=== PATIENT | female | born 1940 | race Caucasian/White ===

== ENCOUNTER 2023-03-02 10:44 | Outpatient (RCR) | payer MEDICARE, SELFPAY | END 2023-04-01 13:42 | disposition home or self-care (01) | LOC: PT 10:44 | PROVIDERS: PCP Family Medicine; Visit Provider Family Medicine | DX: M25.511 Pain in right shoulder (principal) | CPT/HCPCS: 97110; 97161 ==

== ENCOUNTER 2023-04-01 19:53 | Emergency (ER) | payer MEDICARE, SELFPAY ==
[2023-04-01 20:03] VITALS: BP 168/83; PULSE 68; RESP 16; TEMP 36.7; O2SAT 95; BMI 26.3
--- NOTE | 2023-04-01 20:53 | ED.UPPEXIN1 ---
HPI - Extremity Injury (Upper) General Chief Complaint: Wound/Laceration Stated Complaint: FALL Upper Extermity Injury Time Seen by Provider: 04/01/23 20:16 Source: patient Mode of arrival: walk-in History of Present Illness HPI narrative: This 82-year-old female who is on a daily baby aspirin presents for evaluation of 2 skin tears to the right forearm and one laceration to the medial aspect of the distal forearm. The patient states that she was walking down the bleachers at the volleyball game in her shoe got stuck and she fell forward striking her arm on one of the bleachers. She denies any bony tenderness. She denies any dizziness prior to her fall. She does not know the date of her last tetanus shot. She has an approximately 2 cm laceration to the distal anterior forearm and an approximately 2 cm skin tear to the upper forearm and approximately 1 cm skin tear to the elbow area. Related Data Allergies Allergy/AdvReac Type Severity Reaction Status Date / Time No Known Drug Allergies Allergy Verified 04/01/23 20:03 Review of Systems ROS Status of ROS 10 or more systems reviewed and unremarkable except as noted in history and below Exam Narrative Exam Narrative: Nurses note and vital signs reviewed and patient is not hypoxic. General: The patient appears well and in no apparent distress. Patient is resting comfortably on cart.GCS 15 Skin: Warm, dry, no pallor noted. There is no rash noted. Head: Normocephalic, atraumatic Eye: Normal conjunctiva, no drainage, EOMI. PERRL Ears, Nose, Mouth, and Throat: oral mucosa is moist Neck: No midline bony vertebral tenderness or step-off Cardiovascular: Regular Rate and Rhythm S1 and S2, pulses are brisk and equal bilaterally Respiratory: Patient is in no distress, no accessory muscle use, lungs are clear to auscultation, no wheezing, rales or rhonchi Back: non-tender, no CVA tenderness bilaterally to percussion. GI: Normal bowel sounds, no tenderness to palpation, no masses appreciated. No rebound, guarding, or rigidity noted. Musculoskeletal: There is a 2 cm laceration to the distal forearm tearily. There is a 2 cm skin tear to the right mid forearm and once a meter skin tear to the right elbow area. President And Chief Executive Officer strength is intact, patient is able to approximate thumb and all fingers. Neurological: A&O x4, normal speech, No focal weakness Psychiatric: Cooperative Constitutional Vital Signs, click to edit/add: Last Vital Signs Temp 98.0 F 04/01/23 20:03 Pulse 68 04/01/23 20:03 Resp 16 04/01/23 20:03 BP 168/83 H 04/01/23 20:03 Pulse Ox 95 04/01/23 20:03 O2 Del Method Room Air 04/01/23 20:03 Course Vital Signs Vital signs: Vital Signs Temperature 98.0 F 04/01/23 20:03 Pulse Rate 68 04/01/23 20:03 Respiratory Rate 16 04/01/23 20:03 Blood Pressure 168/83 H 04/01/23 20:03 Pulse Oximetry 95 04/01/23 20:03 Oxygen Delivery Method Room Air 04/01/23 20:03 Temperature 98.0 F 04/01/23 20:03 Pulse Rate 68 04/01/23 20:03 Respiratory Rate 16 04/01/23 20:03 Blood Pressure 168/83 H 04/01/23 20:03 Pulse Oximetry 95 04/01/23 20:03 Oxygen Delivery Method Room Air 04/01/23 20:03 MDM - Extremity Injury (Upper) MDM Narrative Medical decision making narrative: Procedure note: Laceration repair right forearm. The forearm was infiltrated with 1 percent lidocaine and explored to the base. There was no foreign body or visible tendon. It was irrigated copiously with normal saline and Betadine. 8, 3-0 Ethilon sutures are placed into the laceration with good wound edge approximation and control of bleeding. The skin tear on the right mid forearm was cleaned with normal saline and Betadine and irrigated with normal saline and Dermabond was placed over the skin tear. There was initial current bleeding which then resolved and additional Dermabond was applied.Bleeding was subsequently controlled. Skin tear at the right elbow area was cleaned with normal saline and Betadine and irrigated with normal saline. Dermabond was placed over the skin tear with good wound edge approximation. Tolerated all procedures well. Discharge Plan Discharge Chief Complaint: Wound/Laceration Clinical Impression: Skin tear of forearm without complication, Forearm laceration Patient Disposition: Home, Self-Care Time of Disposition Decision: 21:28 Condition: Good Instructions: Care For Your Stitches (ED), Laceration (ED), Skin Adhesive Care (ED), Laceration Without Closure (ED) Additional Instructions: Sutures can be removed in 10-12 days. Apply bacitracin topically to the sutured area. The area with the skin adhesive can be left open are covered with a loose bandage. Stand Alone Forms: Portal Instructions Referrals: Halina Lowe MD [Primary Care Provider] - 1 week
--- NOTE | 2023-04-01 21:09 | PC.NURSE ---
patient was at [employer] game when she tripped over the last step and fell into the bleachers. patient landed on right arm. takes 81mg aspirin daily. patient arrived by private car with affected arm wrapped in coband with gauze. patient suffers from laceration to posterior side of wrist with clotted with dark red blood. approx 2in long. skin tear well approx to anterior right forearm. skin tear noted to posterior forearm approx .5 in in length and width. patient denies any dizziness, no head injury, ambulated unassisted with steady gait
[2023-04-01] MEDS: ADACEL DIPH,PERTUSS(ACELL),TET VAC/PF 0.5 ML ADULT SYRINGE IM (22:13)
[2023-04-01] MEDS: LIDOCAINE HCL 1% 100 MG/10 ML MDV INJ (22:14)
== END 2023-04-01 22:33 | disposition home or self-care (01) ==
PROVIDERS: Emergency Provider Emergency Medicine; PCP Family Medicine
DX: S51.811A Laceration without foreign body of right forearm, initial encounter (principal); S51.011A Laceration without foreign body of right elbow, initial encounter; W10.8XXA Fall (on) (from) other stairs and steps, initial encounter; Z79.82 Long term (current) use of aspirin
CPT/HCPCS: 12002; 90471; 90715; 99283

== ENCOUNTER 2024-08-27 10:35 | Emergency (ER) | payer MEDICARE, SELFPAY ==
[2024-08-27 10:40] VITALS: BP 135/86; PULSE 68; TEMP 36.6; O2SAT 100; BMI 27.3
--- NOTE | 2024-08-27 10:46 | XR_ITS ---
The [address] [address] Patient Name: LACEY FRANK MRN: [id number] date: 1940 Sex: F Assigned Patient Location: ER Current Patient Location: ER Accession/Order Number: [id number] Exam Date: 08/27/2024 10:55 Report Date: 08/27/2024 11:27 At the request of: CATIE AGUILERA Procedure: XR shoulder RT min 2V EXAM: XR shoulder RT min 2V HISTORY: fall COMPARISON: None. TECHNIQUE: 3 views of the right shoulder performed. FINDINGS: There is an acute comminuted displaced fracture of the proximal right humerus with a displaced fracture of the greater tuberosity and a comminuted displaced fracture of the surgical neck. The humeral head maintains a normal relationship with the glenoid. The clavicle and scapula are unremarkable. The acromioclavicular articulation is unremarkable. Imaged portions of the ribs are unremarkable. XR/XR shoulder RT min 2V IMPRESSION: There is an acute comminuted displaced fracture of the proximal right humerus with a displaced fracture of the radial tuberosity and a comminuted displaced fracture of the surgical neck. Electronically authenticated by: RAD PELAYO Date: 08/27/2024 11:27
--- NOTE | 2024-08-27 10:50 | ED.UPPEXIN1 ---
HPI HPI - Extremity Injury (Upper) General Chief Complaint: Extremity Injury, Upper Stated Complaint: FALL, UPPER EXTREMITY PAIN Time Seen by Provider: 08/27/24 10:38 Source: patient Mode of arrival: walk-in Limitations: no limitations History of Present Illness HPI narrative: 84-year-old female presents for pain in the right shoulder from a fall on ice this morning. No other injury was sustained, she did not hit her head. No weakness or numbness in her hand. Related Data Home Medications ?Medication ?Instructions ?Recorded ?Confirmed amitriptyline 10 mg tablet 10 mg PO .QHS 08/27/24 08/27/24 amlodipine 5 mg tablet 7.5 mg PO .QD 08/27/24 08/27/24 aspirin 81 mg tablet,delayed 81 mg PO DAILY 08/27/24 08/27/24 release (Adult Aspirin Regimen) estradiol 0.01% (0.1 mg/gram) 1 g vaginal .TWICE PER WEEK 08/27/24 08/27/24 vaginal cream levothyroxine 88 mcg tablet 88 mcg PO QAM 08/27/24 08/27/24 lisinopril 20 mg tablet 20 mg PO .QD 08/27/24 08/27/24 methenamine hippurate 1 gram tablet 1 g PO .QD 08/27/24 08/27/24 ropinirole 1 mg tablet 1 mg PO .QHS 08/27/24 08/27/24 Allergies Allergy/AdvReac Type Severity Reaction Status Date / Time No Known Drug Allergies Allergy Verified 08/27/24 10:40 Opioid HPI Opioid Management Most Recent Pain and Opioid Data: No Data to Display Review of Systems ROS Narrative A ten point review of systems is negative except as noted above. PFSH PFSH Social History Little interest or pleasure in doing things: not at all Feeling down, depressed, or hopeless: several days Exam Narrative Exam Narrative: Nurses note and vital signs reviewed and patient is not hypoxic. General: The patient appears well and in no apparent distress. Patient is resting comfortably on cart. Skin: Warm, dry, no pallor noted. There is no rash noted. Head: Normocephalic, atraumatic Eye: Normal conjunctiva, no drainage Ears, Nose, Mouth, and Throat: oral mucosa is moist. Nares patent. Cardiovascular: Regular Rate and Rhythm Respiratory: Patient is in no distress, no accessory muscle use Back: non-tender GI: Soft and nontender Musculoskeletal: She is reluctant to move her right shoulder. Radial pulse 2+. Wrist and elbow nontender. Fingers have good range of motion. Neurological: A&O, normal speech Psychiatric: Cooperative Constitutional Vital Signs, click to edit/add: Last Vital Signs Temp 97.9 F 08/27/24 10:40 Pulse 68 08/27/24 10:40 Resp 16 08/27/24 10:40 BP 135/86 08/27/24 10:40 Pulse Ox 100 08/27/24 10:40 O2 Del Method Room Air 08/27/24 10:40 Course Vital Signs Vital signs: Vital Signs Temperature 97.9 F 08/27/24 10:40 Pulse Rate 68 08/27/24 10:40 Respiratory Rate 16 08/27/24 10:40 Blood Pressure 135/86 08/27/24 10:40 Pulse Oximetry 100 08/27/24 10:40 Oxygen Delivery Method Room Air 08/27/24 10:40 Temperature 97.9 F 08/27/24 10:40 Pulse Rate 68 08/27/24 10:40 Respiratory Rate 16 08/27/24 10:40 Blood Pressure 135/86 08/27/24 10:40 Pulse Oximetry 100 08/27/24 10:40 Oxygen Delivery Method Room Air 08/27/24 10:40 MDM - Extremity Injury (Upper) MDM Narrative Medical decision making narrative: X-ray on my interpretation shows a proximal humerus fracture, mildly displaced. Sling applied, application checked by me and found to be appropriate, she is neurovascularly intact. Appointment made to see Dr. Puga on August 29 at 10:15 AM. Treatment diagnosis and follow-up were discussed with the patient. Differential Diagnosis Differential diagnosis: Likely other (Contusion, fracture, dislocation) Imaging Data Right shoulder: Radiologist's impression: ITS Impressions Shoulder X-Ray 08/27/24 10:46 IMPRESSION: There is an acute comminuted displaced fracture of the proximal right humerus with a displaced fracture of the radial tuberosity and a comminuted displaced fracture of the surgical neck. Electronically authenticated by: RAD PELAYO Date: 08/27/2024 11:27 Discharge Plan Discharge Chief Complaint: Extremity Injury, Upper Clinical Impression: Fracture of right shoulder Patient Disposition: Home, Self-Care Time of Disposition Decision: 11:30 Condition: Good Mode of Transportation: Private Vehicle Prescriptions / Home Meds: No Action estradiol 0.01 % (0.1 mg/gram) cream 1 g VAGINAL .TWICE PER WEEK levothyroxine 88 mcg tablet 88 mcg PO QAM lisinopril 20 mg tablet 20 mg PO .QD methenamine hippurate 1 gram tablet 1 g PO .QD ropinirole 1 mg tablet 1 mg PO .QHS amlodipine 5 mg tablet 7.5 mg PO .QD amitriptyline 10 mg tablet 10 mg PO .QHS aspirin [Adult Aspirin Regimen] 81 mg tablet,delayed release (DR/EC) 81 mg PO DAILY Print Language: Slovenian Instructions: Arm Fracture in Adults (ED) Additional Instructions: Tylenol and Motrin for pain Referrals: Halina Lowe MD [Primary Care Provider] - 1 week Edgar Puga MD [Physician] - 08/29/24 10:15 am
== END 2024-08-27 11:43 | disposition home or self-care (01) ==
PROVIDERS: Emergency Provider Emergency Medicine; PCP Family Medicine
DX: S42.211A Unspecified displaced fracture of surgical neck of right humerus, initial encounter for closed fracture (principal); W00.0XXA Fall on same level due to ice and snow, initial encounter
CPT/HCPCS: 73030; 99283

== ENCOUNTER 2024-09-12 12:22 | Outpatient (OUT) | payer MEDICARE, SELFPAY ==
--- NOTE | 2024-09-12 | XR_ITS ---
The [address] [address] Patient Name: THANIA FRANK MRN: [id number] date: 1940 Sex: F Assigned Patient Location: Current Patient Location: Accession/Order Number: [id number] Exam Date: 09/12/2024 17:05 Report Date: 09/12/2024 17:06 At the request of: JONATAN ECHEVARRIA MD Procedure: XR shoulder RT min 2V RIGHT SHOULDER - - 3 views CLINICAL HISTORY: Follow-up proximal right humerus fracture COMPARISON: Right shoulder 08/27/2024 FINDINGS: Right humeral head/neck fracture grossly unchanged alignment and healing compared to the prior study. XR/XR shoulder RT min 2V IMPRESSION: NO SIGNIFICANT CHANGE IN FRACTURE FINDINGS. Impression dictated by: Holland Lopez Jr., D.ONicole09/12/2024 5:06 PM Dictation Location: [place] [address] Electronically authenticated by: [id number] Y Date: 09/12/2024 17:06
--- OUTSIDE RECORDS SUMMARY | 2024-09-12 12:28 | XMS_ITS | CCD ---
Author Organization [facility] [place] [facility] Care Team Providers Care Grinder Set Up Operator Jig Name Role Phone DAVID PIKE Primary Care Unavailable PEREZ JAMES Admitting Unavailable PEREZ JAMES Attending Unavailable PHYSICIAN, DEFAULT Admitting Unavailable PHYSICIAN, DEFAULT Attending Unavailable PHYSICIAN, DEFAULT Admitting Unavailable PHYSICIAN, DEFAULT Attending Unavailable Deepa Hendrickson Unavailable MD David Pike Primary Care Provider MD Deepa Hendrickson Attending Provider [phone] DAVID PIKE Admitting Unavailable MISC, DR JACOBSON Primary Care Unavailable PIKE, DR DAVID Quarles Attending Unavailable PIKE, DR DAVID Quarles Consulting Unavailable PIKE, DR DAVID Quarles Admitting Unavailable MISC, DR JACOBSON Primary Care Unavailable PIKE, DR DAVID Quarles Attending Unavailable PIKE, DR DAVID Quarles Consulting Unavailable PIKE, DR DAVID Quarles Admitting Unavailable PIKE, DR DAVID Quarles Attending Unavailable PIKE, DR DAVID Quarles Consulting Unavailable PIKE, DR DAVID Quarles Primary Care Unavailable PIKE, DR DAVID Quarles Admitting Unavailable PIKE, DR DAVID Quarles Attending Unavailable PIKE, DR DAVID Quarles Consulting Unavailable PIKE, DR DAVID Quarles Primary Care Unavailable PIKE, DR DAVID Quarles Primary Care Unavailable PIKE, DR DAVID Quarles Consulting Unavailable PIKE, DR DAVID Quarles Admitting Unavailable PIKE, DR DAVID Quarles Attending Unavailable PIKE, DR DAVID Quarles Admitting Unavailable MISC, DR JACOBSON Primary Care Unavailable GLENDY, DR DAVID Quarles Attending Unavailable GLENDY, DR DAVID Quarles Consulting Unavailable KAMALA HEBERT Admitting Unavailable MISC, DR JACOBSON Primary Care Unavailable KAMALA HEBERT Attending Unavailable KAMALA HEBERT Consulting Unavailable MD David Pike Primary Care Provider [phone] MD David Pike Other Provider MD Deepa Hendrickson Attending Provider [phone] DAVID PIKE Primary Care Physician David Pike Unavailable MD David Pike Attending Provider [phone] SHONNA MO Attending Unavailable SHONNA MO Attending Unavailable SHONNA MO Admitting Unavailable MD David Pike Primary Care Provider MD Deepa Hendrickson Attending Provider MD David Pike Primary Care Provider MD Deepa Hendrickson Attending Provider [phone] MD David Pike Attending Provider [phone] MD David Pike Primary Care Provider MD David Pike Attending Provider MD Deepa Hendrickson Attending Provider David Pike MD Primary Care Provider David Pike MD Primary Care Provider Rosie Jones DO Attending Provider ROSIE JONES Attending Unavailable GERARDO PIKEIA Referring Unavailable SCOTT CASTELLANO Attending Unavailable Glendy, David E Primary Care Unavailable David Pike E Attending Unavailable Glendy, David E Admitting Unavailable Pike, David E Primary Care Unavailable David Pike E Attending Unavailable Glendy, David E Admitting Unavailable Pike, David E Primary Care Unavailable Emeka, Deepa Admitting Unavailable Emeka, Deepa Attending Unavailable David Pike E Primary Care Unavailable Emeka, Deepa Admitting Unavailable Emeka, Deepa Attending Unavailable Rosie Jones Attending Unavailab le Rosie Jones Admitting Unavailab le Glendy David Willam Primary Care Unavailable Shonna Villeda Admitting Unavailable Shonna Villeda Attending Unavailable Allergies Allergy Classification Reported Allergen(s) Allergy Type Date of Onset Reaction(s) Facility (11 sources) Antihistamines Propensity to adverse reactions Unknown [facility] Other (17 sources) fesoterodine Drug Allergy Unknown [facility] Other (17 sources) FLUoxetine Drug Allergy Unknown [facility] Other (20 sources) Hmg-Coa Reductase Inhibitors (Statins); Translations: [HMG-CoA reductase inhibitor (substance)] Propensity to adverse reactions 10-04-19 24 Unknown (qualifier value), Unknown [facility] (20 sources) Nitrofurantoin Drug Allergy 09-04-19 24 Unknown [facility] (17 sources) Penicillins (Antibiotic) Propensity to adverse reactions Unknown [facility] Other (20 sources) DECONGESTANTS Propensity to adverse reactions 09-04-19 Unknown, [facility] (1 source) black walnut pollen extract Drug Allergy 07-23-19 [facility] (14 sources) Penicillins; Translations: [penicillins] Drug allergy (disorder) 01-06-20 13 itching/rash, Hives [facility] (1 source) Antihistamines - Alkylamine Drug allergy (disorder) 07-13-19 03 [facility] (1 source) Decongest Multi-Action Drug allergy (disorder) 07-13-19 13 [facility] (3 sources) NITROFURANTOIN, MACROCRYSTALS / Nitrofurantoin, Monohydrate; Translations: [nitrofurantoin] Drug Allergy Diarrhea (finding) [facility] (6 sources) Pseudoephedrine; Translations: [pseudoephedrine] Drug Allergy Eruption of skin (disorder) [facility] (3 sources) antihistamine/deco ngestants; Translations: [antihistamine/dec ongestants] Drug allergy itching/hives [facility] (9 sources) fexofenadine / Pseudoephedrine Drug Allergy Unknown [facility] Other (9 sources) Penicillin G Benzathine & Proc Drug allergy Unknown [facility] Other (10 sources) fesoterodine Drug Allergy 09-04-19 [facility] (10 sources) FLUoxetine Drug Allergy 09-04-19 [facility] (10 sources) Penicillin G Benzathine Allergy to substance 09-04-19 [facility] (10 sources) Itkilfu-HKZ-CaC Reductase Inhibitor Allergy to substance 09-04-19 [facility] (10 sources) Antihistamine & Nasal Deconges Allergy to substance 09-04-19 [facility] (3 sources) diphenhydrAMINE Drug Allergy 10-04-19 [facility] (3 sources) Penicillins Drug Intolerance 10-05-[address] [facility] (3 sources) Pseudoephedrine Drug Allergy 10-04-[address] [facility] Medications Current Medications Medication Drug Class(es) Dates Sig (Normalized) Sig (Original) amitriptyline hydrochloride 10 mg oral tablet (20 sources) Tricyclic Antidepressant Start: 03-29-2024 take 1 tablet by mouth once daily Amitriptyline 10 mg tablet Active 10 MG PO Daily March 29, 2024 8:14am Start: 03-11-2024 End: 03-29-2024 take 1 tablet by mouth once daily at bedtime Amitriptyline 10 mg tablet Discontinued 0 .ROUTE .COMPLEX 90 March 11, 2024 9:09pm March 29, 2024 8:16am TAKE 1 TABLET BY MOUTH EVERYDAY AT BEDTIME Start: 09-04-2023 End: 03-11-2024 take 1 tablet by mouth once daily at bedtime Amitriptyline 10 mg tablet Discontinued 10 MG PO Daily at bedtime September 17, 2023 10:12am March 11, 2024 9:09pm Start: 06-22-2019 take 1 tablet by lily th once daily at bedtime Elavil 25 mg Tab 25 mg = 1 tab(s), Oral, Once a day (at bedtime), Refills(s) 0, Anxiety Start Date: 06/22/19 Status: Ordered ascorbic acid 113 mg / copper gluconate 0.4 mg / docosahexaenoic acid 87.5 mg / eicosapentaenoic acid 163 mg / lutein 2.5 mg / tocopherol acetate 100 unt / zeaxanthin 0.5 mg / zinc oxide 17.4 mg oral capsule (17 sources) Vitamin C take 1 capsule by mouth twice daily PreserVision AREDS 2 - 1 capsule Orally twice a day Active aspirin 81 mg delayed release oral tablet (20 sources) Platelet Aggregation Inhibitor, Nonsteroidal Anti-inflammatory Drug Start: 09-04-19 End: 09-17-19 24 take 1 tablet by mouth once daily Aspirin 81 mg tablet,delayed release (DR/EC) Active 81 MG PO Daily September 17, 2023 10:12am Start: 06-11-2015 take 1 tablet by lily th once daily aspirin 81 mg oral tablet 81 mg = 1 tab(s), Oral, Daily, Refills(s) 0, Blood Thinner Start Date: 06/11/15 Status: Ordered take 1 tablet by lily th once daily aspirin 81 MG chewable tablet Chew 1 tablet every day by oral route. Active take 1 tablet by lily th every twenty-four hours Aspirin 81 81 MG 1 tablet Orally Once a day Active take 1 tablet by lily th once daily Aspirin 81 81 MG 1 tablet Orally Once a day Active Calcium (2 sources) Phosphate Binder, Calcium Start: 06-11-2015 take 1 tablet by mouth at bedtime Calcium 600+D 1 tablet, Oral, Bedtime, Refill(s) 0, Prophylaxis Start Date: 06/11/15 Status: Ordered Calcium 500+D3 500-400 MG-UNIT (1 source) take 1 tablet by mouth once daily Calcium 500+D3 500-400 MG-UNIT 1 tablet with a meal Orally Once a day Active calcium carbonate 1500 mg oral tablet (2 sources) Start: 08-14-2015 calcium (as carbonate) 600 mg oral tablet 1,200 mg = 2 tab(s), Oral, Daily, Refills(s) 0, Prophylaxis Start Date: 08/14/15 Status: Ordered cholecalciferol 0.125 mg oral capsule (12 sources) Vitamin D Start: 09-04-2023 take 1 capsule by mouth once daily Cholecalciferol (Vitamin D3) 125 mcg (5,000 unit) capsule Active 125 MCG PO Daily September 04, 2023 12:00am take 1 tablet by mouth once teri y cholecalciferol (Vitamin D-3) 25 MCG (1000 UT) tablet Take 1,000 Units by mouth Daily Active chondroitin sulfates 40 mg/ml / glucosamine hydrochloride 50 mg/ml oral solution (3 sources) Glucosamine-Isaac droitin 2236-7013 MG/30ML liquid 1 (one) time each day at the same time Active clonazePAM 0.5 mg oral tablet (15 sources) Benzodiazepine Start: 023 take 1 tablet by mouth once daily clonazePAM 0.5 MG TAKE 1 TABLET BY MOUTH EVERY DAY for 30 Feb, Active Start: 11-11-2022 take 1 tablet by lily th once daily clonazePAM 0.5 MG TAKE 1 TABLET BY MOUTH EVERY DAY for 30 November, Active Start: 06-11-2015 take 1 tablet by lily th once daily clonazePAM 0.5 MG TAKE 1 TABLET BY MOUTH EVERY DAY for 30 Jul, Active Cranberry (20 sources) Non-Standardized Food Allergenic Extract, Non-Standardized Plant Allergenic Extract Start: 03-29-2024 take 1 capsule by mouth once Cranberry 500 mg capsule Active 500 MG PO Once March 29, 2024 8:10am Start: 03-29-2024 take 500 mg by mouth once Cran herrera Active 500 MG PO Once March 29, 2024 9:10am Start: 09-17-2023 End: 03-29-2024 take 1 capsule by mouth twice daily Cranberry 500 mg capsule Discontinued 500 MG PO Twice daily September 17, 2023 10:13am March 29, 2024 8:14am Start: 09-17-2023 End: 03-29-2024 take 500 mg by mouth twice daily Cranberry Discontinue d 500 MG PO Twice daily September 17, 2023 11:13am March 29, 2024 9:14am Start: 09-17-2023 take 500 mg by mouth twice cyrus ly Cranberry Active 500 MG PO Twice daily September 17, 2023 11:13am Start: 09-04-2023 End: 09-17-2023 take 1 capsule by mouth twice daily at mealtime Cranberry 500 mg capsule Discontinued 500 MG PO Twice daily September 04, 2023 12:00am September 17, 2023 10:17am administer with meals Start: 09-04-2023 End: 09-17-2023 take 500 mg by mouth twice daily at mealtime Cranberry Discontinued 500 MG PO Twice daily September 04, 2023 1:00am September 17, 2023 11:17am administer with meals Cranberry 300 MG as directed Orally Active estradiol 0.1 mg/ml vaginal cream (20 sources) Estrogen Start: 09-04-2023 End: 09-17-2023 Estradiol 0.01 % (0.1 mg/gram) cream Active VAGINAL As Directed September 17, 2023 10:13am estradiol (Estra ce) 0.1 MG/GM vaginal cream 1 gram Vaginal Once per week for 30 days Active Estradiol 0.1 MG /GM as directed Vaginal Active Estradiol 0.1 MG /GM as directed Vaginal Active Estradiol 0.1 MG/GM (2 sources) Estradiol 0.1 MG /GM as directed Vaginal Active Fish Oils (19 sources) Start: 06-11-2015 take 1 tablet by mouth at bedtime Fish Oil 1 tablet, Oral, Bedtime, Refill(s) 0, Prophylaxis Start Date: 06/11/15 Status: Ordered take 1 capsule by mouth once cyrus ly Fish Oil 1000 MG 1 capsule Orally Once a day Active FLUoxetine 10 mg oral capsule (2 sources) Serotonin Reuptake Inhibitor Start: 02-04-2023 take 1 capsule by mouth every twenty-four hours FLUoxetine HCl 10 MG 1 capsule Orally Once a day for 30 days Jan, Active gemfibrozil 600 mg oral tablet (20 sources) Peroxisome Proliferator Receptor alpha Agonist Start: 11-25-2023 take 1 tablet by mouth once daily Gemfibrozil 600 mg tablet Active 600 MG PO Daily November 24, 2023 11:00pm Start: 09-17-2023 End: 11-25-2023 take 1 tablet by mouth twice daily Gemfibrozil 600 mg tablet Discontinued 600 MG PO Twice daily September 17, 2023 10:13am November 25, 2023 7:56am Start: 09-04-2023 End: 09-17-2023 Gemfibrozil 600 mg tablet Discontinued MG PO September 04, 2023 12:00am September 17, 2023 10:17am FreeTextSi tablet 30 minutes before morning and evening meals Orally ONCE A DAY; Note: Source Status: Taking; Provider: Glendy Meade ( ) Start: 06-11-2015 take 1 tablet by lily twice daily gemfibrozil 600 mg Tab 600 mg = 1 tab(s), Oral, BID, Refills(s) 0, High blood sugar Start Date: 06/11/15 Status: Ordered Gemfibrozil 600 MG 1 tablet 30 minutes before morning and evening meals Orally ONCE A DAY Active glucosamine sulfate 500 mg oral tablet (18 sources) Start: 09-04-2023 End: 09-17-2023 take 1 tablet by mouth once daily Glucosamine Sulfate (Glucosamine) 500 mg tablet Active 500 MG PO Daily September 17, 2023 10:14am Glucosamine Chond Complex/MSM - (17 sources) Glucosamine Isaac d Complex/MSM - as directed Orally Active hydroCHLOROthiazide 12.5 mg oral tablet (7 sources) Thiazide Diuretic Start: 02-06-2020 hydrochlorothiazide 12.5 mg Tab Refills(s) 0 Start Date: 02/06/20 Status: Ordered hydroCHLOROthiazide 25 mg / lisinopril 20 mg oral tablet (3 sources) Thiazide Diuretic, Angiotensin Converting Enzyme Inhibitor take 2 tablets by mouth once daily lisinopril-hydroCHLORO thiazide 20-25 MG tablet Take 2 tablets by mouth Daily Active ketoconazole 20 mg/ml topical cream (20 sources) Azole Antifungal Start: 09-04-2023 End: 09-17-2023 Ketoconazole 2 % cream Active 1 APPLIC TOPICAL Daily September 17, 2023 10:14am Start: 09-04-2023 End: 09-17-2023 Ketoconazole 2 % cream Disco ntinued 1 APPLIC TOPICAL Daily September 04, 2023 12:00am September 17, 2023 10:17am FreeTextSi application Externally Once a day; Note: Source Status: Taking; Provider: Glendy Meade ( ) Ketoconazole 2 % 1 application Externally Once a day Active Ketoconazole 2 % 1 application Externally Once a day Active levothyroxine sodium 0.088 mg oral tablet (20 sources) l-Thyroxine Start: 06-13-2024 take 1 tablet by mouth once daily in the morning Levothyroxine 88 mcg tablet Active 0 .ROUTE .COMPLEX June 13, 2024 12:39pm TAKE 1 TABLET BY MOUTH EVERY DAY IN THE MORNING ON AN EMPTY STOMACH Start: 03-29-2024 End: 06-13-2024 take 1 tablet by mouth once daily Levothyroxine 88 mcg tablet Discontinued 88 MCG PO Daily March 29, 2024 8:15am June 13, 2024 12:39pm Start: 03-18-2024 End: 03-29-2024 take 1 tablet by mouth once daily in the morning Levothyroxine 88 mcg tablet Discontinued 0 .ROUTE .COMPLEX March 18, 2024 10:20pm March 29, 2024 8:16am TAKE 1 TABLET BY MOUTH EVERY MORNING ON AN EMPTY STOMACH Start: 12-01-2023 End: 03-18-2024 take 1 tablet by mouth once daily in the morning Levothyroxine 75 mcg tablet Discontinued 0 .ROUTE .COMPLEX January 11, 2024 7:33am March 18, 2024 10:20pm TAKE 1 TABLET BY MOUTH EVERY MORNING ON AN EMPTY STOMACH Start: 09-04-2023 End: 12-01-2023 take 1 tablet by mouth once daily Levothyroxine 75 mcg tablet Discontinued 75 MCG PO Daily September 17, 2023 10:14am December 01, 2023 9:00am Start: 06-22-2019 levothyroxine 50 microgram, Oral, Daily, Refills(s) 0, Thyroid Start Date: 06/22/19 Status: Ordered take 1 tablet by lily once daily levothyroxine (Synthroid, Levoxyl) 50 MCG tablet Take 1 tablet every day by oral route for 90 days. Active take 1 tablet by lily once daily in the morning Levothyroxine Sodium 75 MCG 1 tablet in the morning on an empty stomach Orally Once a day for 90 days Active take 1 tablet by lily once daily in the morning Levothyroxine Sodium 50 MCG 1 tablet in the morning on an empty stomach Orally Once a day Active lisinopril 20 mg oral tablet (20 sources) Angiotensin Converting Enzyme Inhibitor Start: 08-01-2024 take 1 tablet by mouth once daily Lisinopril 20 mg tablet Active 0 .ROUTE .COMPLEX August 01, 2024 2:50pm TAKE 1 TABLET BY MOUTH EVERY DAY Start: 09-04-2023 End: 08-01-2024 take 1 tablet by mouth once daily Lisinopril 20 mg tablet Discontinued 20 MG PO Daily September 17, 2023 10:14am August 01, 2024 2:50pm Start: 05-25-2019 take 1 tablet by lily th once daily lisinopril 40 mg Tab 40 mg = 1 tab(s), Oral, Daily, Refills(s) 0, High blood pressure Start Date: 05/25/19 Status: Ordered take 1 tablet by lily th once daily Lisinopril 20 MG TAKE 1 TABLET BY MOUTH EVERY DAY for 90 Active take 0.5 tablet by m out once daily Lisinopril 40 MG 1/2 tablet Orally Once a day Active Magnesium (17 sources) Magnesium 400 MG as directed Orally Active magnesium oxide 400 mg oral tablet (20 sources) Start: 09-17-2023 take 1 tablet by mouth once daily Magnesium Oxide 400 mg (241.3 mg magnesium) tablet Active 400 MG PO Daily September 17, 2023 10:15am Start: 09-04-2023 End: 09-17-2023 Magnesium Oxide 400 mg (241. 3 mg magnesium) tablet Discontinued MG PO As Directed September 04, 2023 12:00am September 17, 2023 10:17am FreeTextSig: as directed Orally; Note: Source Status: Taking; Provider: Glendy Meade ( ) magnesium oxide (Mag-Ox) 400 mg tablet 400 mg Daily Active methenamine hippurate 1000 m g oral tablet (20 sources) Start: 09-04-2023 End: 09-17-2023 Methenamine Hippurate 1 gram tablet Active 1 GM PO Daily September 17, 2023 10:15am take 1 tablet by lily th every twenty-four hours Methenamine Hippurate 1 GM 1 tablet Orally ONCE A Day Active take 1 tablet by lily th every twenty-four hours Methenamine Hippurate 1 GM 1 tablet Orally ONCE A Day Active Multivitamin (Daily Multi-Vitamin) tablet (9 sources) Start: 09-04-2023 take 1 tablet by mouth once daily Multivitamin (Daily Multi-Vitamin) tablet Active 1 TAB PO Daily September 04, 2023 12:00am Start: 09-04-2023 take 1 tablet by lily th once daily Multivitamin (Daily Multi-Vitamin) tablet Active 1 TAB PO Daily September 04, 2023 1:00am Multivitamin preparation (17 sources) take 1 tablet by mouth once daily Multi Vitamin - 1 tablet Orally Once a day Active Multivitamins and Minerals (2 sources) Start: 5 take 1 tablet by mouth at bedtime Multivitamins and Minerals 1 tablet, Oral, Bedtime, Refill(s) 0, Prophylaxis Start Date: 06/11/15 Status: Ordered Niacin (2 sources) Nicotinic Acid Start: 5 take 1 tablet by mouth at bedtime niacin 1 tablet, Oral, Bedtime, Refills(s) 0, Prophylaxis Start Date: 06/11/15 Status: Ordered [place] 0-Dxz-Kms-Fish Oil (Fish Oil) 1,000 mg (120 mg-180 mg) capsule (3 sources) Start: take 1 capsule by mouth once daily [place] 6-Fhh-Col-Fish Oil (Fish Oil) 1,000 mg (120 mg-180 mg) capsule Active 1 CAP PO Daily March 28, 2024 11:00pm Start: 03-29-2024 take 1 capsule by mo [facility] once daily [place] 5-Epp-Pdh-Fish Oil (Fish Oil) 1,000 mg (120 mg-180 mg) capsule Active 1 CAP PO Daily March 29, 2024 12:00am [place]-3 Fatty Acids (Fish Oil) 1200 MG capsule delayed-release (3 sources) take 1 capsule by mouth once daily [place]-3 Fatty Acids (Fish Oil) 1200 MG capsule delayed-release Take 1 capsule by mouth Daily Active omeprazole 20 mg delayed release oral capsule (4 sources) Proton Pump Inhibitor Start: take 1 capsule by mouth once daily in the morning omeprazole 20 mg Cap-DR 20 mg = 1 cap(s), Oral, qAM, # 30 cap(s), Refills(s) 11, Pharmacy: [facility]/pharmacy #[id number] Start Date: 05/25/19 Status: Ordered oseltamivir 30 mg oral capsule (1 source) Neuraminidase Inhibitor Start: 025 take 1 capsule by mouth twice daily Oseltamivir (Tamiflu) 30 mg capsule Active 30 MG PO Twice daily 10 August 18, 2024 12:00am potassium 99 mg extended release oral tablet (14 sources) take 1 tablet by mouth once daily Potassium 99 MG 1 tablet Orally Once a day Active potassium gluconate 2.5 meq oral tablet (20 sources) Start: End: take 1 tablet by mouth once daily Potassium Gluconate 595 mg (99 mg) tablet Active 595 MG PO Daily September 17, 2023 10:16am Start: 09-04-2023 End: 09-17-2023 take 1 tablet by mouth once daily Potassium Gluconate 595 mg (99 mg) tablet Discontinued 1 TAB PO Daily September 04, 2023 12:00am September 17, 2023 10:17am FreeTextSi tablet Orally Once a day; Note: Source Status: Taking; Provider: Glendy Meade ( ) take 1 tablet by lily th once daily Potassium Gluconate 595 MG capsule Take 1 tablet by mouth Daily Active PreserVision AREDS 2 oral capsule (2 sources) Start: 06-22-2019 take 1 capsule by mouth once daily PreserVision AREDS 2 oral capsule 1 cap(s), Oral, Daily, Refill(s) 0 Start Date: 06/22/19 Status: Ordered proctazone-hc (2 sources) Start: 08-15-2015 proctazone-hc proctazone-hc Start Date: 08/15/15 Status: Ordered rOPINIRole 1 mg oral tablet (20 sources) Nonergot Dopamine Agonist Start: 07-11-2024 take 1 tablet by mouth once daily Ropinirole 1 mg tablet Active 0 .ROUTE .COMPLEX 90 July 11, 2024 9:01am TAKE 1 TABLET BY MOUTH DAILY Start: 09-17-2023 End: 11-25-2023 take 2 tablets by mouth once daily at bedtime Ropinirole 0.5 mg tablet Discontinued 1 MG PO Daily at bedtime September 17, 2023 10:16am November 25, 2023 7:58am Start: 09-04-2023 End: 09-17-2023 take 1 tablet by mouth once daily at bedtime Ropinirole 0.5 mg tablet Discontinued 1 MG PO Daily at bedtime September 17, 2023 9:22am September 17, 2023 10:17am FreeTextSi tablet 1 to 3 hours before bedtime Orally Once a day; Note: Source Status: Refill; Provider: Glendy Quarles Start: 09-04-2023 End: 11-25-2023 take 1 mg by mouth once daily at bedtime Ropinirole Discontinued 1 MG PO Daily at bedtime September 17, 2023 11:16am November 25, 2023 8:58am Start: 08-21-2023 End: 07-11-2024 take 1 tablet by mouth once daily Ropinirole 1 mg tablet Discontinued 1 MG PO Daily September 17, 2023 12:00am November 25, 2023 8:08am Start: 09-15-2022 take 1 tablet by lily th once daily at bedtime rOPINIRole HCl 0.5 MG 1 tablet 1 to 3 hours before bedtime Orally Once a day for 30 days Sep, Active Start: 09-15-2022 take 1 tablet by lily th once daily at bedtime rOPINIRole HCl 0.25 MG 1 tablet 1 to 3 hours before bedtime Orally Once a day for 30 days Sep, Active take 1 tablet by lily th once daily at bedtime rOPINIRole HCl 0.25 MG 1 tablet 1 to 3 hours before bedtime Orally Once a day Active therapeutic multivitamin-minerals (Theragran-M) tablet (3 sources) take 1 tablet by mouth once daily therapeutic multivitamin-minerals (Theragran-M) tablet Take 1 tablet by mouth Daily Active Vit C,U-Oo-Ddyjn-Lutein-Zeax an (Preservision Areds-2) 250-90-40-1 mg tablet,chewable (9 sources) Start: Vit C,A-Jk-Jesnb-Lutein-Zeaxan (Preservision Areds-2) 250-90-40-1 mg tablet,chewable Active 1 TAB PO Twice daily September 04, 2023 12:00am Start: 09-04-2023 Vit C,E-Zn-Die Cut Operator vg-Pimshl-Ohlmpq (Preservision Areds-2) 250-90-40-1 mg tablet,chewable Active 1 TAB PO Twice daily September 04, 2023 1:00am vitamin b12 1 mg oral tablet (3 sources) Vitamin B12 take 2 tablets by mouth once daily cyanocobalamin (Vitamin B-12) 1000 MCG tablet Take 2,000 mcg by mouth Daily Active Vitamin B12 1000 MCG (1 source) take 1 tablet by mouth once daily Vitamin B12 1000 MCG 1 tablet Orally Once a day Active Vitamin D-3 125 MCG (5000 UT) (17 sources) Vitamin D-3 125 MCG (5000 UT) as directed Orally Active Vitamin D3 (2 sources) Start: 08-14-2015 Vitamin D3 1,000 International_Unit, Oral, Daily, Refills(s) 0, Prophylaxis Start Date: 08/14/15 Status: Ordered Vitamin E 400 UNIT (13 sources) take 1 capsule by mouth once daily Vitamin E 400 UNIT 1 capsule Orally Once a day Active Completed/Discontinued Medications Medication Drug Class(es) Dates Sig (Normalized) Sig (Original) amLODIPine 5 mg oral tablet (20 sources) Dihydropyridine Calcium Channel Genny Start: 03-29-2024 End: 03-29-2024 take 2 tablets by mouth once daily Amlodipine 5 mg tablet Discontinued 10 MG PO Daily March 29, 2024 8:26am March 29, 2024 8:28am Start: 03-29-2024 End: 03-29-2024 take 10 mg by mouth once daily Amlodipine Discontinued 10 MG PO Daily March 29, 2024 9:26am March 29, 2024 9:28am Start: 03-29-2024 End: 03-29-2024 take 7.5 mg by mouth once daily Amlodipine 5 mg tablet Discontinued 7.5 MG PO Daily March 29, 2024 8:15am March 29, 2024 8:27am Start: 03-29-2024 End: 03-29-2024 take 7.5 mg by mouth once daily Amlodipine Discontinue d 7.5 MG PO Daily March 29, 2024 9:15am March 29, 2024 9:27am Start: 03-29-2024 take 1 tablet by lily th once daily Amlodipine 10 mg tablet Active 10 MG PO Daily March 28, 2024 11:00pm Start: 01-04-2024 End: 03-29-2024 Amlodipine 5 mg tablet Disco ntinued 0 .ROUTE .COMPLEX 135 March 10, 2024 4:46pm March 29, 2024 8:16am TAKE 1 AND 1/2 TABLETS BY MOUTH ONCE A DAY Start: 01-04-2024 End: 03-29-2024 Amlodipine Discontinued 0 .R OUTE .COMPLEX 135 March 10, 2024 5:46pm March 29, 2024 9:16am TAKE 1 AND 1/2 TABLETS BY MOUTH ONCE A DAY Start: 09-17-2023 End: 01-04-2024 take 7.5 mg by mouth once daily Amlodipine 5 mg tablet Discontinued 7.5 MG PO Daily September 17, 2023 10:12am January 04, 2024 1:29pm Start: 09-04-2023 End: 09-17-2023 take 1 tablet by mouth once daily Amlodipine 5 mg tablet Discontinued 7.5 MG PO Daily 135 September 17, 2023 9:45am September 17, 2023 10:17am FreeTextSi tablet Orally Once a day; Note: Source Status: Taking; Refills: 3; Qty: 90 Tablet; Provider: Glendy Quarles Start: 09-04-2023 End: 01-04-2024 take 7.5 mg by mouth once daily Amlodipine Discontinue d 7.5 MG PO Daily September 17, 2023 11:12am January 04, 2024 2:29pm azithromycin 250 mg oral tablet (13 sources) Macrolide Antimicrobial Start: 09-04-2023 End: 09-17-2023 take 2 tablets by mouth once daily, then take 1 tablet by mouth once daily Azithromycin 250 mg tablet Discontinued TAB PO Daily September 04, 2023 12:00am September 17, 2023 9:21am FreeTextSig: as directed Orally 2 tabs po today, then 1 tab daily x 4 more days; Note: Source Status: Start; Refills: 0; Provider: Glendy Quarles Start: 05-06-2023 Azithromycin 2 50 MG as directed Orally 2 tabs po today, then 1 tab daily x 4 more days for 5 Apr, Active ciprofloxacin 500 mg oral tablet (7 sources) Quinolone Antimicrobial Start: 03-11-2024 End: 03-16-2024 take 1 tablet by mouth once daily Ciprofloxacin Hcl 500 mg tablet Discontinued 500 MG PO Daily 5 March 10, 2024 11:00pm March 16, 2024 9:31am Start: 03-25-2023 take 1 tablet by lily every twelve hours Ciprofloxacin HCl 250 MG 1 tablet Orally every 12 hrs for 7 days Mar, Active [place] 1-Ohc-Dim-Fish Oil (Fish Oil) 60-90-500 mg capsule (9 sources) Start: 09-04-2023 End: 11-25-2023 take 1 capsule by mouth once daily [place] 4-Bha-Jon-Fish Oil (Fish Oil) 60-90-500 mg capsule Discontinued 1 CAP PO Daily September 04, 2023 12:00am November 25, 2023 7:58am Start: 09-04-2023 End: 11-25-2023 take 1 capsule by mouth once daily [place] 4-Hfu-Ufu-Fish Oil (Fish Oil) 60-90-500 mg capsule Discontinued 1 CAP PO Daily September 04, 2023 1:00am November 25, 2023 8:58am Start: 09-04-2023 take 1 capsule by mo [facility] once daily [place] 7-Nft-Phs-Fish Oil (Fish Oil) 60-90-500 mg capsule Active 1 CAP PO Daily September 04, 2023 1:00am vitamin e 180 mg oral capsule (19 sources) Start: 09-04-2023 End: 11-25-2023 take 1 capsule by mouth once daily Vitamin E (Dl, Acetate) 180 mg (400 unit) capsule Discontinued 180 MG PO Daily September 17, 2023 10:17am November 25, 2023 7:58am take 1 capsule by mo uth every twenty-four hours Vitamin E 400 UNIT 1 capsule Orally Once a day Active Problems Active Problems Problem Classification Problem Date Documented Da te Episodic/Chronic Anxiety disorders (20 sources) Anxiety; Translations: [Anxiety disorder, unspecified] Chronic Chronic kidney disease (20 sources) Chronic kidney disease stage 4; Translations: [Chronic kidney disease, stage 4 (severe)] Onset: 2 Resolved: 2 Chronic Complications of surgical procedures or medical care (11 sources) Postoperative hemorrhage; Translations: [Postoperative hemorrhage from incision] 09-09-2023 Episodic Delirium, dementia, and amnestic and other cognitive disorders (4 sources) Senile dementia; 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] 08-17-2024 Chronic Disorders of lipid metabolism (20 sources) Pure hyperglyceridemia; Translations: [Pure hyperglyceridemia] Onset: 2 Chronic Esophageal disorders (3 sources) Gastroesophageal reflux disease without esophagitis; Translations: [Gastro-esophageal reflux disease without esophagitis] Chronic Essential hypertension (20 sources) Essential (primary) hypertension; Translations: [Hypertensive disorder] Onset: 2 Chronic Genitourinary symptoms and ill-defined conditions (12 sources) Stress incontinence (female) (male); Translations: [Genuine stress incontinence] Onset: 3 Chronic Genitourinary symptoms and ill-defined conditions (20 sources) Unspecified abnormal findings in urine; Translations: [Nocturia] Onset: 2 03-20-2020 Episodic Gout and other crystal arthropathies (16 sources) Gout; Translations: [Gout, unspecified] Onset: 5 09-16-2023 Chronic Hypertension with complications and secondary hypertension (20 sources) Chronic kidney disease due to hypertension; Translations: [Hypertensive chronic kidney disease with stage 1 through stage 4 chronic kidney disease, or unspecified chronic kidney disease] Onset: 9 Resolved: 2 Chronic Immunizations and screening for infectious disease (7 sources) Encounter for immunization; Translations: [Vaccination given] Onset: 1 Episodic Menopausal disorders (3 sources) Menopause present; Translations: [Menopausal and female climacteric states] Onset: 4 Chronic Nonmalignant breast conditions (1 source) Mastodynia Episodic Nonspecific chest pain (18 sources) Chest discomfort; Translations: [Other chest pain] Episodic Nutritional deficiencies (20 sources) Vitamin D deficiency; Translations: [Vitamin D deficiency, unspecified] Onset: 2 Resolved: 2 Chronic Osteoporosis (20 sources) Age-related osteoporosis without current pathological fracture; Translations: [Osteoporosis] Onset: 2 Chronic Other aftercare (1 source) Encounter for removal of sutures Episodic Other and unspecified benign neoplasm (3 sources) Benign neoplasm of stomach; Translations: [Polyp of stomach and duodenum] Episodic Other circulatory disease (3 sources) Elevated blood-pressure reading without diagnosis of hypertension; Translations: [Elevated blood-pressure reading, without diagnosis of hypertension] Episodic Other diseases of bladder and urethra (3 sources) Overactive bladder; Translations: [Overactive bladder] Onset: 6 Chronic Other diseases of kidney and ureters (9 sources) Cyst of kidney; Translations: [Cyst of kidney, acquired] 09-16-2023 Episodic Other gastrointestinal disorders (15 sources) Dark stools; Translations: [Other fecal abnormalities] Episodic Other gastrointestinal disorders (3 sources) Abnormal feces; Translations: [Other fecal abnormalities] Episodic Other hereditary and degenerative nervous system conditions (20 sources) Restless legs; Translations: [Restless legs syndrome] 11-25-2023 Chronic Other hereditary and degenerative nervous system conditions (11 sources) Restless legs syndrome; Translations: [Restless legs syndrome (RLS)] Chronic Other lower respiratory disease (3 sources) Dyspnea; Translations: [Dyspnea, unspecified] Episodic Other non-traumatic joint disorders (18 sources) Pain in wrist; Translations: [Pain in left wrist] Episodic Other non-traumatic joint disorders (1 source) Pain in right shoulder Episodic Other nutritional; endocrine; and metabolic disorders (2 sources) Body mass index 30+ - obesity 08-02-2019 Chronic Other nutritional; endocrine; and metabolic disorders (20 sources) Hypercalcemia; Translations: [Hypercalcemia] 09-16-2023 Chronic Other nutritional; endocrine; and metabolic disorders (3 sources) Hypercalcemia; Translations: [Hypercalcemia] Onset: 4 Chronic Other nutritional; endocrine; and metabolic disorders (3 sources) Obesity; Translations: [Obesity, unspecified] Chronic Other nutritional; endocrine; and metabolic disorders (3 sources) Simple obesity ; Translations: [Other obesity due to excess calories] Onset: 7 Chronic Other nutritional; endocrine; and metabolic disorders (9 sources) Intolerance to lactose; Translations: [Lactose intolerance, unspecified] Chronic Other nutritional; endocrine; and metabolic disorders (1 source) Lactose intolerance, unspecified Chronic Other nutritional; endocrine; and metabolic disorders (3 sources) Abnormal weight loss; Translations: [Abnormal weight loss] Episodic Other upper respiratory infections (3 sources) Chronic sinusitis; Translations: [Chronic sinusitis, unspecified] Chronic Other upper respiratory infections (4 sources) Acute maxillary sinusitis; Translations: [Acute recurrent maxillary sinusitis] Onset: 6 Episodic Residual codes; unclassified (2 sources) Memory impairment; Translations: [Other amnesia] 06-17-2024 Episodic Residual codes; unclassified (2 sources) Other amnesia; Translations: [Memory loss] 06-17-2024 Episodic Thyroid disorders (20 sources) Hypothyroidism, unspecified; Translations: [Hypothyroidism] Onset: 2 Chronic Unclassified (2 sources) CONTACT W/AND (SUSP) EXPOS COVID-19; Translations: [CONTACT W/AND (SUSP) EXPOS COVID-19] Onset: 2 Viral infection (4 sources) COVID-19; Translations: [Disease caused by 2019-nCoV] Onset: 2 Past or Other Problems Problem Classification Problem Date Documented Da te Episodic/Chronic Abdominal pain (6 sources) Abdominal pain; Translations: [Unspecified abdominal pain] Onset: 12-25-2014 Episodic Acute bronchitis (3 sources) Acute bronchitis; Translations: [Acute bronchitis, unspecified] Onset: 09-11-2014 Episodic Allergic reactions (3 sources) Inflammatory dermatosis; Translations: [Dermatitis, unspecified] Onset: 04-09-2017 Episodic Other bone disease and musculoskeletal deformities (3 sources) Bone density finding; Translations: [Other specified disorders of bone density and structure, unspecified site] Onset: 01-17-2015 Episodic Other connective tissue disease (3 sources) Decrease in height; Translations: [Loss of height] Onset: 12-25-2014 Episodic Other connective tissue disease (3 sources) Nontraumatic rupture of rotator cuff of left shoulder; Translations: [Unspecified rotator cuff tear or rupture of left shoulder, not specified as traumatic] Onset: 03-23-2013 Episodic Other diseases of kidney and ureters (8 sources) Cyst of kidney, acquired; Translations: [Cystic kidney disease, unspecified] Onset: 09-17-2021 Resolved: 09-17-2021 Episodic Other female genital disorders (3 sources) Hypertrophy of uterus; Translations: [Hypertrophy of uterus] Onset: 01-17-2015 Episodic Other lower respiratory disease (3 sources) Cough; Translations: [Cough, unspecified] Onset: 09-11-2014 Episodic Other non-traumatic joint disorders (3 sources) Arthralgia of the ankle and/or foot; Translations: [Pain in unspecified ankle and joints of unspecified foot] Onset: 07-26-2014 Episodic Other nutritional; endocrine; and metabolic disorders (3 sources) Hyperuricemia without signs of inflammatory arthritis and tophaceous disease; Translations: [Hyperuricemia without signs of inflammatory arthritis and tophaceous disease] Onset: 09-07-2023 Episodic Other screening for suspected conditions (not mental disorders or infectious disease) (20 sources) Blood chemistry abnormal; Translations: [Abnormal finding of blood chemistry, unspecified] Onset: 01-17-2015 09-03-2023 Episodic Syncope (4 sources) Syncope and collapse; Translations: [Syncope and collapse] Onset: 10-04-2018 Episodic Unclassified (1 source) CONTACT W/AND (SUSP) EXPOS COVID-19; Translations: [CONTACT W/AND (SUSP) EXPOS COVID-19] Onset: 02-04-2022 Urinary tract infections (20 sources) Urinary tract infection, site not specified; Translations: [Urethral syndrome, unspecified] Onset: 09-17-2021 Resolved: 09-17-2021 Episodic Results Test Name Value Interpretation Reference Range Facility Creatinineon 08-17-2024 Creatinine [Mass/Vol] 1.56 mg/dL High 0.60-1.20 [facility] Comment on above: Performed By: #### C REAT, B12, TSH3 #### [facility] [address] [place] [address] Estimated GFR 32.580 mL/Min Normal [facility] Comment on above: Performed By: #### C REAT, B12, TSH3 #### [facility] [address] [place] [address] Creatinine [Mass/volume] in Serum or PlasmaOrdered By: Rosie Jones on 08-17-2024 Creatinine [Mass/Vol] Creatinine [Mass/volume] in Serum or Plasma High 0.60-1.20 [facility] No Panel InformationOrdered By: Rosie Jones on 08-17-2024 Estimated GFR (CKD-EPI) 32.580 mL/Min [facility] Creatinine Clearance (Chem N/A [facility] Thyroid Stimulating Hormoneo n 08-17-2024 TSH Qn 3.47 m[IU]/L Normal 0.45-5.33 [facility] Comment on above: Result Comment: PERF ORMED BY: [place] [address] PATHOLOGIST MANAGER PERSONNEL SELECTION ROSMERY GÓMEZ M.D. Performed By: #### M G, URIC, [id number], RENAL #### [facility] [address] [place] [address] Thyrotropin [Units/volume] i n Serum or PlasmaOrdered By: Rosie Jones on 08-17-2024 TSH Qn Thyrotropin [Units/volume] in Serum or Plasma 0.45-5.33 [facility] Vitamin B12on 08-17-2024 Cobalamin (Vitamin B12) [Mass/Vol] 387 pg/mL Normal 180-914 [facility] Comment on above: Performed By: #### C REAT, B12, TSH3 #### [address] Vitamin B12 ser/plasOrdered By: Rosie Jones on 08-17-2024 Cobalamin (Vitamin B12) [Mass/Vol] Vitamin B12 ser/plas 180-914 [facility] Albumin [Mass/volume] in Ser um or Plasma by Bromocresol green (BCG) dye binding methoOrdered By: Deepa Hendrickson on 03-28-2024 Albumin BCG dye [Mass/Vol] 4.1 g/dL 3.5-5.7 [facility] Calcium [Mass/volume] in Ser um or PlasmaOrdered By: Deepa Hendrickson on 03-28-2024 Calcium [Mass/Vol] 9.1 mg/dL Normal 8.6-10.3 [facility] Comment on above: Performed By: #### M G, URIC, [id number], RENAL #### [facility] [address] [place] [address] [place] Carbon dioxide, total [Moles /volume] in Serum or PlasmaOrdered By: Deepa Hendrickson on 03-28-2024 CO2 [Moles/Vol] 30.1 mmol/L Normal 21.0-31.0 [facility] Comment on above: Performed By: #### M G, URIC, [id number], RENAL #### [facility] [address] [place] [id number] [place] Chloride [Moles/volume] in S nas or PlasmaOrdered By: Deepa Hendrickson on 03-28-2024 Chloride [Moles/Vol] 105 mmol/L Normal 98-107 [facility] Comment on above: Performed By: #### M G, URIC, [id number], RENAL #### [facility] [address] [place] [id number] [place] Creatinine [Mass/volume] in Serum or PlasmaOrdered By: Deepa Hendrickson on 03-28-2024 Creatinine [Mass/Vol] 1.50 mg/dL High 0.60-1.20 [facility] Comment on above: Performed By: #### M G, URIC, [id number], RENAL #### [facility] [address] [place] [id number] [place] Creatinine [Mass/volume] in UrineOrdered By: Deepa Hendrickson on 03-28-2024 Creatinine (U) [Mass/Vol] 57.00 mg/dL [facility] Comment on above: No reference range e stablished Erythrocyte distribution wid th [Ratio] by Automated countOrdered By: Deepa Hendrickson on 03-28-2024 Erythrocyte distribution width (RBC) [Ratio] 13.6 % Normal 11.9-15.3 [facility] Comment on above: Performed By: #### M G, URIC, [id number], RENAL #### [facility] [address] [place] [id number] [place] Erythrocytes [#/volume] in B lood by Automated countOrdered By: Deepa Hendrickson on 03-28-2024 RBC (Bld) [#/Vol] 4.26 10*6/uL Normal 3.60-5.00 [facility] Comment on above: Performed By: #### M G, URIC, [id number], RENAL #### [facility] [address] [place] [address] [place] Glucose [Mass/volume] in Ser um or PlasmaOrdered By: Deepa Hendrickson on 03-28-2024 Glucose [Mass/Vol] 94 mg/dL Normal 70-100 [facility] Comment on above: ADA recommended refe rence rangeRandom Glucose Reference Range is dependent on time and content of last meal. Glucose of more than 200 mg/dL in a nonstressed, ambulatory subject supports the diagnosis of Diabetes Mellitus. Result Comment: [place] om Glucose Reference Range is dependent on time and content of last meal. Glucose of more than 200 mg/dL in a nonstressed, ambulatory subject supports the diagnosis of Diabetes Mellitus. ADA recommended reference range Performed By: #### M G, URIC, [id number], RENAL #### [facility] [address] [place] [address] [place] Hematocrit [Volume Fraction] of Blood by Automated countOrdered By: Deepa Hendrickson on 03-28-2024 Hematocrit (Bld) [Volume fraction] 37.8 % Normal 34.0-46.4 [facility] Comment on above: Performed By: #### M G, URIC, [id number], RENAL #### [facility] [address] [place] [address] [place] Hemoglobin [Mass/volume] in BloodOrdered By: Deepa Hendrickson on 03-28-2024 Hemoglobin (Bld) [Mass/Vol] 12.9 g/dL Normal 11.8-15.4 [facility] Comment on above: Performed By: #### M G, URIC, [id number], RENAL #### [facility] [address] Hemogram CBC Without Diffon 03-28-2024 Mean Corpuscular HGB Conc 34.1 g/dL Normal 32.0-35.0 [facility] Comment on above: Performed By: #### M G, URIC, [id number], RENAL #### [facility] [address] WBC (Bld) [#/Vol] 6.1 10*3/uL Normal 3.8-11.6 [facility] Comment on above: Performed By: #### M G, URIC, [id number], RENAL #### [facility] [address] [place] [address] Leukocytes [#/volume] correc mark for nucleated erythrocytes in Blood by Automated counOrdered By: Deepa Hendrickson on 03-28-2024 WBC corrected for nucl RBC Auto (Bld) [#/Vol] 6.1 10*3/uL 3.8-11.6 [facility] MCH [Entitic mass] by Automa mark countOrdered By: Deepa Hendrickson on 03-28-2024 MCH (RBC) [Entitic mass] 30.3 pg Normal 24.7-34.3 [facility] Comment on above: Performed By: #### M G, URIC, [id number], RENAL #### [facility] [address] [place] [address] MCHC Auto (RBC) [Mass/Vol]Or dered By: Deepa Hendrickson on 03-28-2024 MCHC (RBC) [Mass/Vol] 34.1 g/dL 32.0-35.0 [facility] MCV [Entitic volume] by Auto mated countOrdered By: Deepa Hendrickson on 03-28-2024 MCV (RBC) [Entitic vol] 88.7 fL Normal 80-100 [facility] Comment on above: Performed By: #### M G, URIC, [id number], RENAL #### [address] Magnesium [Mass/volume] in S nas or PlasmaOrdered By: Deepa Hendrickson on 03-28-2024 Magnesium [Mass/Vol] 2.3 mg/dL Normal 1.9-2.7 [facility] Comment on above: Performed By: #### M G, URIC, [id number], RENAL #### [facility] [address] [place] [address] No Panel InformationOrdered By: Deepa Hendrickson on 03-28-2024 Estimated GFR (CKD-EPI) 34.363 mL/Min [facility] Creatinine Clearance (Chem N/A [facility] Parathyrin.intact [Mass/volu me] in Serum or PlasmaOrdered By: Deepa Hendrickson on 03-28-2024 Parathyrin.intact [Mass/Vol] 44.1 pg/mL [facility] Parathyroid Hormone Intacton 03-28-2024 Parathyroid Hormone Intact 44.1 pg/mL Normal [facility] Comment on above: Result Comment: PERF ORMED BY: [place] [address] PATHOLOGIST MANAGER PERSONNEL SELECTION RACHEL MONTERO M.D. Performed By: #### M G, URIC, [id number], RENAL #### [facility] [address] [place] [address] Phosphate [Mass/volume] in S nas or PlasmaOrdered By: Deepa Hendrickson on 03-28-2024 Phosphate [Mass/Vol] 3.8 mg/dL Normal 2.5-4.5 [facility] Comment on above: Performed By: #### M G, URIC, [id number], RENAL #### [facility] [address] [place] [address] Platelet mean volume [Entiti c volume] in Blood by Automated countOrdered By: Deepa Hendrickson on 03-28-2024 Platelet mean volume (Bld) [Entitic vol] 8.8 fL Normal 6.3-10.7 [facility] Comment on above: Result Comment: PERF ORMED BY: [place] [address] PATHOLOGIST MANAGER PERSONNEL SELECTION RACHEL MONTERO M.D. Performed By: #### M G, URIC, [id number], RENAL #### [address] Platelets [#/volume] in Bloo d by Automated countOrdered By: Deepa Hendrickson on 03-28-2024 Platelets (Bld) [#/Vol] 206 10*3/uL Normal 150-450 [facility] Comment on above: Performed By: #### M G, URIC, [id number], RENAL #### [address] Potassium [Moles/volume] in Serum or PlasmaOrdered By: Deepa Hendrickson on 03-28-2024 Potassium [Moles/Vol] 4.2 mmol/L Normal 3.5-5.1 [facility] Comment on above: Performed By: #### M G, URIC, [id number], RENAL #### [address] Protein Creat Ratio Ur Rando mon 03-28-2024 Creatinine, Urine (Random) 57.00 mg/dL Normal [facility] Comment on above: Result Comment: No r eference range established Performed By: #### M G, URIC, [id number], RENAL #### [address] Urine Protein/Creatinine Ratio 211 mg/g{Cre} High 0-200 [facility] Comment on above: Result Comment: PERF ORMED BY: [place] [address] PATHOLOGIST MANAGER PERSONNEL SELECTION RACHEL MONTERO M.D. Performed By: #### M G, URIC, [id number], RENAL #### [address] Protein [Mass/volume] in Uri neOrdered By: Deepa Emeka on 03-28-2024 Protein (U) [Mass/Vol] 12 mg/dL High 0-9 [facility] Comment on above: Performed By: #### M G, URIC, [id number], RENAL #### [address] Renal Function Panelon 03-28 Albumin [Mass/Vol] 4.1 g/dL Normal 3.5-5.7 [facility] Comment on above: Performed By: #### M G, URIC, [id number], RENAL #### [address] GFR/1.73 sq M.predicted MDRD (S/P/Bld) [Vol rate/Area] 34.363 mL/min/{1.73_m2} Normal [facility] Comment on above: Performed By: #### M G, URIC, [id number], RENAL #### [address] Serum or plasma anion gap de terminationOrdered By: Deepa Emeka on 03-28-2024 Anion gap [Moles/Vol] 11.1 mmol/L Normal 6.0-15.0 [facility] Comment on above: Performed By: #### M G, URIC, [id number], RENAL #### [place] [address] [place] Sodium [Moles/volume] in Ser um or PlasmaOrdered By: Deepa Emeka on 03-28-2024 Sodium [Moles/Vol] 142 mmol/L Normal 136-145 [facility] Comment on above: Performed By: #### M G, URIC, [id number], RENAL #### [place] [address] [place] Urate [Mass/volume] in Serum or PlasmaOrdered By: Deepa Emeka on 03-28-2024 Urate [Mass/Vol] 6.6 mg/dL Normal 2.3-6.6 [facility] Comment on above: Performed By: #### M G, URIC, [id number], RENAL #### [facility] [address] [place] [id number] [facility] Urea nitrogen [Mass/volume] in Serum or PlasmaOrdered By: Deepa Hendrickson on 03-28-2024 Urea nitrogen [Mass/Vol] 31 mg/dL High 7-25 [facility] Comment on above: Performed By: #### M G, URIC, [id number], RENAL #### [facility] [address] [place] [address] [facility] Urine protein/creatinine rat ioOrdered By: Deepa Emeka on 03-28-2024 Protein/Creatinine (U) [Ratio] 211 mg/g{Cre} High 0-200 [facility] Vitamin D 25 Hydroxy Totalon 03-28-2024 Vitamin D 25 Hydroxy Total 66.0 ng/mL Normal 30-100 [facility] Comment on above: Result Comment: VINAY MIN D STATUS 25([place])VITAMIN D RANGE (ng/mL) Deficient <20 Insufficient 20 to <30 Sufficient 30 to 100 Reference: Jose Kennedy, Juan VILLARREAL, et al. Evaluation,treatment, and prevention of vitamin D deficiency; an Endocrine Society clinical practice guideline. JCEM. 2010; 96(7):1911-30. PERFORMED BY: [place] [address] PATHOLOGIST MANAGER PERSONNEL SELECTION RACHEL MONTERO M.D. Performed By: #### M G, URIC, [id number], RENAL #### [facility] [address] [place] [id number] [facility] Vitamin D+Metabolites [Mass/ volume] in Serum or PlasmaOrdered By: Deepa Emeka on 03-28-2024 Vitamin D+Metabolites [Mass/Vol] 66.0 ng/mL 30-100 [facility] Comment on above: VITAMIN D STATUS 25( [place])VITAMIN D RANGE (ng/mL) Deficient <20 Insufficient 20 to <30Sufficient 30 to 100Reference: Jose Kennedy, Juan VILLARREAL, et al. Evaluation,treatment, and prevention of vitamin D deficiency; an Endocrine Society clinical practice guideline. JCEM. 2010; 96(7):1911-30. Automated basophil %Ordered By: David Pike on 03-18-2024 Basophils/100 WBC (Bld) 0.9 % Normal . [facility] [place] [facility] Comment on above: Performed By: #### M G, URIC, [id number], RENAL #### [address] Automated basophil countOrde red By: David Pike on 03-18-2024 Basophils (Bld) [#/Vol] 0.1 10*3/uL Normal 0.0-0.2 [facility] Comment on above: Result Comment: PERF ORMED BY: [place] [address] PATHOLOGIST MANAGER PERSONNEL SELECTION RACHEL MONTERO M.D. Performed By: #### M G, URIC, [id number], RENAL #### [address] Automated blood monocyte cou ntOrdered By: David Pike on 03-18-2024 Monocytes (Bld) [#/Vol] 0.4 10*3/uL Normal 0.0-0.8 [facility] Comment on above: Performed By: #### M G, URIC, [id number], RENAL #### [address] Automated eosinophil %Ordere d By: David Pike on 03-18-2024 Eosinophils/100 WBC (Bld) 4.2 % Normal . [facility] Comment on above: Performed By: #### M G, URIC, [id number], RENAL #### [address] Automated eosinophil countOr dered By: David Pike on 03-18-2024 Eosinophils (Bld) [#/Vol] 0.3 10*3/uL Normal 0.0-0.45 [facility] Comment on above: Performed By: #### M G, URIC, [id number], RENAL #### [address] [place] [address] [place] Automated monocyte %Ordered By: David Pike on 03-18-2024 Monocytes/100 WBC (Bld) 7.1 % Normal . [facility] Comment on above: Performed By: #### M G, URIC, [id number], RENAL #### [facility] [address] [place] [id number] [facility] Automated neutrophil %Ordere d By: David Pike on 03-18-2024 Neutrophils/100 WBC (Bld) 61.0 % Normal . [facility] Comment on above: Performed By: #### M G, URIC, [id number], RENAL #### [address] Basic Metabolic Panelon GFR/1.73 sq M.predicted MDRD (S/P/Bld) [Vol rate/Area] 35.790 mL/min/{1.73_m2} Normal [facility] Comment on above: Performed By: #### M G, URIC, [id number], RENAL #### [place] [address] [place] Calcium [Mass/volume] in Ser um or PlasmaOrdered By: David Pike on 03-18-2024 Calcium [Mass/Vol] 9.1 mg/dL Normal 8.6-10.3 [facility] Comment on above: Performed By: #### M G, URIC, [id number], RENAL #### [place] [address] [place] Carbon dioxide, total [Moles /volume] in Serum or PlasmaOrdered By: David Pike on 03-18-2024 CO2 [Moles/Vol] 29.6 mmol/L Normal 21.0-31.0 [facility] Comment on above: Performed By: #### M G, URIC, [id number], RENAL #### [place] [address] [place] Chloride [Moles/volume] in S nas or PlasmaOrdered By: David Pike on 03-18-2024 Chloride [Moles/Vol] 106 mmol/L Normal 98-107 [facility] Comment on above: Performed By: #### M G, URIC, [id number], RENAL #### [address] Complete Blood Count Auto Di ffon 03-18-2024 Mean Corpuscular HGB Conc 34.3 g/dL Normal 32.0-35.0 [facility] Comment on above: Performed By: #### M G, URIC, [id number], RENAL #### [address] NRBC% 0.1 /100{WBC} Normal 0-0.[address] [facility] Comment on above: Performed By: #### M G, URIC, [id number], RENAL #### [address] Creatinine [Mass/volume] in Serum or PlasmaOrdered By: David Pike on 03-18-2024 Creatinine [Mass/Vol] 1.45 mg/dL High 0.60-1.20 [facility] Comment on above: Performed By: #### M G, URIC, [id number], RENAL #### [address] Erythrocyte distribution wid th [Ratio] by Automated countOrdered By: David Pike on 03-18-2024 Erythrocyte distribution width (RBC) [Ratio] 13.7 % Normal 11.9-15.3 [facility] Comment on above: Performed By: #### M G, URIC, [id number], RENAL #### [address] Erythrocytes [#/volume] in B lood by Automated countOrdered By: David Pike on 03-18-2024 RBC (Bld) [#/Vol] 4.43 10*6/uL Normal 3.60-5.00 [facility] Comment on above: Performed By: #### M G, URIC, [id number], RENAL #### [place] [address] [place] Glucose [Mass/volume] in Ser um or PlasmaOrdered By: David Pike on 03-18-2024 Glucose [Mass/Vol] 94 mg/dL Normal 70-100 [facility] Comment on above: ADA recommended refe rence rangeRandom Glucose Reference Range is dependent on time and content of last meal. Glucose of more than 200 mg/dL in a nonstressed, ambulatory subject supports the diagnosis of Diabetes Mellitus. Result Comment: [place] om Glucose Reference Range is dependent on time and content of last meal. Glucose of more than 200 mg/dL in a nonstressed, ambulatory subject supports the diagnosis of Diabetes Mellitus. ADA recommended reference range Performed By: #### M G, URIC, [id number], RENAL #### [facility] [address] Hematocrit [Volume Fraction] of Blood by Automated countOrdered By: David Pike on 03-18-2024 Hematocrit (Bld) [Volume fraction] 39.2 % Normal 34.0-46.4 [facility] Comment on above: Performed By: #### M G, URIC, [id number], RENAL #### [facility] [address] Hemoglobin [Mass/volume] in BloodOrdered By: David Pike on 03-18-2024 Hemoglobin (Bld) [Mass/Vol] 13.4 g/dL Normal 11.8-15.4 [facility] Comment on above: Performed By: #### M G, URIC, [id number], RENAL #### [facility] [address] [place] [address] [place] Leukocytes [#/volume] correc mark for nucleated erythrocytes in Blood by Automated counOrdered By: David Pike on 03-18-2024 WBC corrected for nucl RBC Auto (Bld) [#/Vol] 6.3 10*3/uL 3.8-11.6 [facility] Leukocytes [#/volume] in Blo od by Automated countOrdered By: David Pike on 03-18-2024 WBC (Bld) [#/Vol] 6.3 10*3/uL Normal 3.8-11.6 [facility] Comment on above: Performed By: #### M G, URIC, [id number], RENAL #### [facility] [address] Lymphocytes [#/volume] in Bl ood by Automated countOrdered By: David Pike on 03-18-2024 Lymphocytes (Bld) [#/Vol] 1.7 10*3/uL Normal 1.00-4.8 [facility] Comment on above: Performed By: #### M G, URIC, [id number], RENAL #### [facility] [address] Lymphocytes/100 leukocytes i n Blood by Automated countOrdered By: David Pike on 03-18-2024 Lymphocytes/100 WBC (Bld) 26.8 % Normal . [facility] Comment on above: Performed By: #### M G, URIC, [id number], RENAL #### [address] MCH [Entitic mass] by Automa mark countOrdered By: David Pike on 03-18-2024 MCH (RBC) [Entitic mass] 30.4 pg Normal 24.7-34.3 [facility] Comment on above: Performed By: #### M G, URIC, [id number], RENAL #### [facility] [address] [place] [address] MCHC Auto (RBC) [Mass/Vol]Or dered By: David Pike on 03-18-2024 MCHC (RBC) [Mass/Vol] 34.3 g/dL 32.0-35.0 [facility] MCV [Entitic volume] by Auto mated countOrdered By: David Pike on 03-18-2024 MCV (RBC) [Entitic vol] 88.6 fL Normal 80-100 [facility] Comment on above: Performed By: #### M G, URIC, [id number], RENAL #### [place] [address] [place] Neutrophils [#/volume] in Bl ood by Automated countOrdered By: David Pike on 03-18-2024 Neutrophils (Bld) [#/Vol] 3.8 10*3/uL Normal 1.8-7.7 [facility] Comment on above: Performed By: #### M G, URIC, [id number], RENAL #### [facility] [address] [place] [address] No Panel InformationOrdered By: David Pike on 03-18-2024 Estimated GFR (CKD-EPI) 35.790 mL/Min [facility] Creatinine Clearance (Chem N/A [facility] Nucleated erythrocytes [Pres ence] in Blood by Automated countOrdered By: David Pike on 03-18-2024 Nucleated RBC Auto Ql (Bld) 0.1 /100{WBC} 0-0.5 [facility] Platelet mean volume [Entiti c volume] in Blood by Automated countOrdered By: David Pike on 03-18-2024 Platelet mean volume (Bld) [Entitic vol] 8.9 fL Normal 6.3-10.7 [facility] Comment on above: Performed By: #### M G, URIC, [id number], RENAL #### [address] Platelets [#/volume] in Bloo d by Automated countOrdered By: David Pike on 03-18-2024 Platelets (Bld) [#/Vol] 189 10*3/uL Normal 150-450 [facility] Comment on above: Performed By: #### M G, URIC, [id number], RENAL #### [facility] [address] [place] [address] Potassium [Moles/volume] in Serum or PlasmaOrdered By: David Pike on 03-18-2024 Potassium [Moles/Vol] 4.5 mmol/L Normal 3.5-5.1 [facility] Comment on above: Performed By: #### M G, URIC, [id number], RENAL #### [address] Serum or plasma anion gap de terminationOrdered By: David Pike on 03-18-2024 Anion gap [Moles/Vol] 8.9 mmol/L Normal 6.0-15.0 [facility] Comment on above: Performed By: #### M G, URIC, [id number], RENAL #### [facility] [address] [place] [address] [place] Sodium [Moles/volume] in Ser um or PlasmaOrdered By: David Pike on 03-18-2024 Sodium [Moles/Vol] 140 mmol/L Normal 136-145 [facility] Comment on above: Performed By: #### M G, URIC, [id number], RENAL #### [address] Thyrotropin [Units/volume] i n Serum or PlasmaOrdered By: David Pike on 03-18-2024 TSH Qn 7.59 m[IU]/L High 0.45-5.33 [facility] Comment on above: Result Comment: PERF ORMED BY: [place] [address] PATHOLOGIST MANAGER PERSONNEL SELECTION RACHEL MONTERO M.D. Performed By: #### M G, URIC, [id number], RENAL #### [address] Thyroxine (T4) free [Mass/vo lume] in Serum or PlasmaOrdered By: David Pike on 03-18-2024 Free T4 [Mass/Vol] 1.13 ng/dL High 0.61-1.12 [facility] Comment on above: Performed By: #### M G, URIC, [id number], RENAL #### [facility] [address] [place] [address] Urea nitrogen [Mass/volume] in Serum or PlasmaOrdered By: David Pike on 03-18-2024 Urea nitrogen [Mass/Vol] 26 mg/dL High 7-25 [facility] Comment on above: Performed By: #### M G, URIC, [id number], RENAL #### [facility] [address] [place] [address] Urine Cultureon 10-09-2023 Bacteria identified Cx Nom (U) <9,000 colonies/ml mixed bacterial skin contaminants 1 Day PERFORMED BY: [address] [place] [address] PATHOLOGIST MANAGER PERSONNEL SELECTION RACHEL MONTERO M.D. Normal [facility] Comment on above: Performed By: #### M G, YVONNE, [id number], RENAL #### [place] [id number] [facility] MM screening mammo BI w/CADo n 10-05-2023 MM screening mammo BI w/CAD [facility] [place] [address] [place] [address] Mammography Report Signed Patient: Ella Frank MR#: [id number] : 1940 Acct:[id number] Age/Sex: 83 / F ADM Date: 10/05/23 Loc: [place] Room: Type: [facility] Attending Dr: David Pike MD Copies to: David Pike MD Ordering Provider: David Pike MD Date of Service: 10/05/23 MM/MM screening mammo BI w/CAD: Z12.31 - Encounter for screening mammogram for malignant ... CLINICAL DATA: Screening for malignancy. BILATERAL SCREENING MAMMOGRAMS - FULL FIELD DIGITAL WITH TOMOSYNTHESIS AND CAD Tomosynthesis craniocaudal and mediolateral oblique views of both breasts were obtained using low- dose digital technique. Comparison is made to prior studies from November 15, 2019 through September 26, 2022. This examination was reviewed with the aid of CAD. There are scattered fibroglandular densities. Benign and vascular calcifications are present. There are no developing masses, typically malignant calcifications or architectural distortion. There has been no significant interval change. MM/MM screening mammo BI w/CAD IMPRESSION: NO MAMMOGRAPHIC EVIDENCE OF MALIGNANCY. ROUTINE FOLLOW-UP IS RECOMMENDED IN ONE YEAR. RESULT CODE: 2 Benign Findings(s) DENSITY CODE: 2 (approximately 25-50% glandular) FOLLOW UP: 1YR The false-negative rate of mammography is approximately 10-percent. Management of a palpable abnormality must be based on clinical grounds. Patient was entered into a reminder system with a target due date for the next mammogram. Impression dictated by: Karen Cain M.D.10/05/2023 3:05 PM Dictation Location: [facility] Transcribed By: DEANNE 10/05/23 1505 Dictated By: Karen Cain MD 10/05/23 1503 Signed By: 10/05/23 1505 Normal [facility] Albumin [Mass/volume] in Ser um or Plasma by Bromocresol green (BCG) dye binding methoOrdered By: Deepa Hendrickson on 09-07-2023 Albumin BCG dye [Mass/Vol] 4.2 g/dL 3.5-5.7 [facility] Automated erythrocytes count in urine sediment (number/area)Ordered By: Deepa Hendrickson on 09-07-2023 RBC Auto (Urine sed) [#/Area] 0-1 [HPF] 0-4 [facility] Automated leukocytes count i n urine sediment (number/area)Ordered By: Deepa Hendrickson on 09-07-2023 WBC Auto (Urine sed) [#/Area] 5-9 [HPF] 0-4 [facility] Automated urine color determ inationOrdered By: Deepa Hendrickson on 09-07-2023 Color (U) Yellow Normal Yellow [facility] Comment on above: Order Comment: Reaso n for Exam CKD (chronic kidney disease) stage 4, GFR 15-29 ml/min;Jeremy h Performed By: #### M G, URIC, [id number], RENAL #### [address] Automated urine sediment luis alberto cium oxalate crystal count by microscopy (number/high powOrdered By: Deepa Hendrickson on 09-07-2023 Calcium oxalate crystals LM.HPF (Urine sed) [#/Area] 4+ [HPF] [facility] Bilirubin Test strip Ql (U)O rdered By: eDepa Hendrickson on 09-07-2023 Bilirubin Ql (U) Negative Negative [facility] Calcium [Mass/volume] in Ser um or PlasmaOrdered By: Deepa Hendrickson on 09-07-2023 Calcium [Mass/Vol] 9.7 mg/dL Normal 8.6-10.3 [facility] Comment on above: Order Comment: Reaso n for Exam CKD (chronic kidney disease) stage 4, GFR 15-29 ml/min;Jeremy h Performed By: #### M G, URIC, [id number], RENAL #### [facility] [address] [place] [address] [place] Carbon dioxide, total [Moles /volume] in Serum or PlasmaOrdered By: Deepa Hendrickson on 09-07-2023 CO2 [Moles/Vol] 30.5 mmol/L Normal 21.0-31.0 [facility] Comment on above: Order Comment: Reaso n for Exam CKD (chronic kidney disease) stage 4, GFR 15-29 ml/min;Jeremy h Performed By: #### M G, URIC, [id number], RENAL #### [facility] [address] [place] [address] [place] Chloride [Moles/volume] in S nas or PlasmaOrdered By: Deepa Hendrickson on 09-07-2023 Chloride [Moles/Vol] 105 mmol/L Normal 98-107 [facility] Comment on above: Order Comment: Reaso n for Exam CKD (chronic kidney disease) stage 4, GFR 15-29 ml/min;Jeremy h Performed By: #### M G, URIC, [id number], RENAL #### [facility] [address] [place] [address] [place] Creatinine [Mass/volume] in Serum or PlasmaOrdered By: Deepa Hendrickson on 09-07-2023 Creatinine [Mass/Vol] 1.66 mg/dL High 0.60-1.20 [facility] Comment on above: Order Comment: Reaso n for Exam CKD (chronic kidney disease) stage 4, GFR 15-29 ml/min;Jeremy h Performed By: #### M G, URIC, [id number], RENAL #### [facility] [address] [place] [address] [place] Creatinine [Mass/volume] in UrineOrdered By: Deepa Hendrickson on 09-07-2023 Creatinine (U) [Mass/Vol] mg/dL 11.0-20.0 [facility] Dipstick and Microscopicon 0 09-07-2023 Appearance (U) Cloudy Critically abnormal Clear [facility] Comment on above: Order Comment: Reaso n for Exam CKD (chronic kidney disease) stage 4, GFR 15-29 ml/min;Jeremy h Performed By: #### M G, URIC, [id number], RENAL #### [address] Bacteria,Urine Rare High None Seen [facility] Comment on above: Order Comment: Reaso n for Exam CKD (chronic kidney disease) stage 4, GFR 15-29 ml/min;Jeremy h Performed By: #### M G, URIC, [id number], RENAL #### [address] Bilirubin,Urine Negative Normal Negative [facility] Comment on above: Order Comment: Reaso n for Exam CKD (chronic kidney disease) stage 4, GFR 15-29 ml/min;Jeremy h Performed By: #### M G, URIC, [id number], RENAL #### [address] Calcium Oxalate Crystals,Urine 4+ Normal [facility] Comment on above: Order Comment: Reaso n for Exam CKD (chronic kidney disease) stage 4, GFR 15-29 ml/min;Jeremy h Performed By: #### M G, URIC, [id number], RENAL #### [address] Glucose Ql (U) Normal Normal Normal [facility] Comment on above: Order Comment: Reaso n for Exam CKD (chronic kidney disease) stage 4, GFR 15-29 ml/min;Jeremy h Performed By: #### M G, URIC, [id number], RENAL #### [address] Hyaline Casts,Urine 9-19 High 0-8 [facility] Comment on above: Order Comment: Reaso n for Exam CKD (chronic kidney disease) stage 4, GFR 15-29 ml/min;Jeremy h Result Comment: PERF ORMED BY: [place] [address] PATHOLOGIST MANAGER PERSONNEL SELECTION RACHEL MONTERO M.D. Performed By: #### M G, URIC, [id number], RENAL #### [facility] [address] Ketones Ql (U) Trace High Negative [facility] Comment on above: Order Comment: Reaso n for Exam CKD (chronic kidney disease) stage 4, GFR 15-29 ml/min;Jeremy h Performed By: #### M G, URIC, [id number], RENAL #### [facility] [address] Leukocyte esterase Test strip Ql (U) Negative Normal Negative [facility] Comment on above: Order Comment: Reaso n for Exam CKD (chronic kidney disease) stage 4, GFR 15-29 ml/min;Jeremy h Performed By: #### M G, URIC, [id number], RENAL #### [address] Nitrite,Urine Negative Normal Negative [facility] Comment on above: Order Comment: Reaso n for Exam CKD (chronic kidney disease) stage 4, GFR 15-29 ml/min;Jeremy h Performed By: #### M G, URIC, [id number], RENAL #### [address] Occult Blood,Urine Negative Normal Negative [facility] Comment on above: Order Comment: Reaso n for Exam CKD (chronic kidney disease) stage 4, GFR 15-29 ml/min;Jeremy h Performed By: #### M G, URIC, [id number], RENAL #### [address] Othe Crystals,Urine None Seen Normal [facility] Comment on above: Order Comment: Reaso n for Exam CKD (chronic kidney disease) stage 4, GFR 15-29 ml/min;Jeremy h Performed By: #### M G, URIC, [id number], RENAL #### [facility] [address] [place] [id number] [place] RBC LM.HPF (Urine sed) [#/Area] 0 /[HPF] Normal 0-4 [facility] Comment on above: Order Comment: Reaso n for Exam CKD (chronic kidney disease) stage 4, GFR 15-29 ml/min;Jeremy h Performed By: #### M G, URIC, [id number], RENAL #### [address] Specificy [place],Urine 1.027 Normal 1.001-1.030 [facility] Comment on above: Order Comment: Reaso n for Exam CKD (chronic kidney disease) stage 4, GFR 15-29 ml/min;Jeremy h Performed By: #### M G, URIC, [id number], RENAL #### [address] Squamous Epithelial Cell,Urine 10-19 High 0-2 [facility] Comment on above: Order Comment: Reaso n for Exam CKD (chronic kidney disease) stage 4, GFR 15-29 ml/min;Jeremy h Performed By: #### M G, URIC, [id number], RENAL #### [address] Urobilinogen,Urine Normal Normal Normal [facility] Comment on above: Order Comment: Reaso n for Exam CKD (chronic kidney disease) stage 4, GFR 15-29 ml/min;Jeremy h Performed By: #### M G, URIC, [id number], RENAL #### [address] WBC,Urine 5-9 High 0-4 [facility] Comment on above: Order Comment: Reaso n for Exam CKD (chronic kidney disease) stage 4, GFR 15-29 ml/min;Jeremy h Performed By: #### M G, URIC, [id number], RENAL #### [address] Erythrocyte distribution wid th [Ratio] by Automated countOrdered By: Deepa Hendrickson on 09-07-2023 Erythrocyte distribution width (RBC) [Ratio] 13.5 % Normal 11.9-15.3 [facility] Comment on above: Order Comment: Reaso n for Exam CKD (chronic kidney disease) stage 4, GFR 15-29 ml/min;Jeremy h Performed By: #### C BCNO #### [address] Erythrocytes [#/volume] in B lood by Automated countOrdered By: Deepa Hendrickson on 09-07-2023 RBC (Bld) [#/Vol] 4.25 10*6/uL Normal 3.60-5.00 [facility] Comment on above: Order Comment: Reaso n for Exam CKD (chronic kidney disease) stage 4, GFR 15-29 ml/min;Jeremy h Performed By: #### C BCNO #### [facility] [address] [place] [address] [place] Glucose [Mass/volume] in Ser um or PlasmaOrdered By: Deepa Hendrickson on 09-07-2023 Glucose [Mass/Vol] 85 mg/dL Normal 70-100 [facility] Comment on above: ADA recommended refe rence rangeRandom Glucose Reference Range is dependent on time and content of last meal. Glucose of more than 200 mg/dL in a nonstressed, ambulatory subject supports the diagnosis of Diabetes Mellitus. Order Comment: Reaso n for Exam CKD (chronic kidney disease) stage 4, GFR 15-29 ml/min;Jeremy h Result Comment: [place] om Glucose Reference Range is dependent on time and content of last meal. Glucose of more than 200 mg/dL in a nonstressed, ambulatory subject supports the diagnosis of Diabetes Mellitus. ADA recommended reference range Performed By: #### M G, URIC, [id number], RENAL #### [facility] [address] [place] [address] [facility] Hematocrit [Volume Fraction] of Blood by Automated countOrdered By: Deepa Hendrickson on 09-07-2023 Hematocrit (Bld) [Volume fraction] 37.8 % Normal 34.0-46.4 [facility] Comment on above: Order Comment: Reaso n for Exam CKD (chronic kidney disease) stage 4, GFR 15-29 ml/min;Jeremy h Performed By: #### C BCNO #### [facility] [address] [place] [address] [place] Hemoglobin [Mass/volume] in BloodOrdered By: Deepa Hendrickson on 09-07-2023 Hemoglobin (Bld) [Mass/Vol] 12.6 g/dL Normal 11.8-15.4 [facility] Comment on above: Order Comment: Reaso n for Exam CKD (chronic kidney disease) stage 4, GFR 15-29 ml/min;Jeremy h Performed By: #### C BCNO #### [facility] [address] Hemogram CBC Without Diffon 09-07-2023 Mean Corpuscular HGB Conc 33.3 g/dL Normal 32.0-35.0 [facility] Comment on above: Order Comment: Reaso n for Exam CKD (chronic kidney disease) stage 4, GFR 15-29 ml/min;Jeremy h Performed By: #### C BCNO #### [facility] [address] [place] [address] WBC (Bld) [#/Vol] 7.1 10*3/uL Normal 3.8-11.6 [facility] Comment on above: Order Comment: Reaso n for Exam CKD (chronic kidney disease) stage 4, GFR 15-29 ml/min;Jeremy h Performed By: #### C BCNO #### [address] Ketones Auto test strip (U) [Mass/Vol]Ordered By: Deepa Hendrickson on 09-07-2023 Ketones (U) [Mass/Vol] Trace Negative [facility] - UrinalysisOrder ed By: Deepa Hendrickson on 09-07-2023 Hyaline casts LM Ql (Urine sed) 9-19 [LPF] 0-8 [facility] Leukocytes [#/volume] correc mark for nucleated erythrocytes in Blood by Automated counOrdered By: Deepa Hendrickson on 09-07-2023 WBC corrected for nucl RBC Auto (Bld) [#/Vol] 7.1 10*3/uL 3.8-11.6 [facility] MCH [Entitic mass] by Automa mark countOrdered By: Deepa Hendrickson on 09-07-2023 MCH (RBC) [Entitic mass] 29.6 pg Normal 24.7-34.3 [facility] Comment on above: Order Comment: Reaso n for Exam CKD (chronic kidney disease) stage 4, GFR 15-29 ml/min;Jeremy h Performed By: #### C BCNO #### [facility] [address] MCHC Auto (RBC) [Mass/Vol]Or dered By: Deepa Hendrickson on 09-07-2023 MCHC (RBC) [Mass/Vol] 33.3 g/dL 32.0-35.0 [facility] MCV [Entitic volume] by Auto mated countOrdered By: Deepa Hendrickson on 09-07-2023 MCV (RBC) [Entitic vol] 88.9 fL Normal 80-100 [facility] Comment on above: Order Comment: Reaso n for Exam CKD (chronic kidney disease) stage 4, GFR 15-29 ml/min;Jeremy h Performed By: #### C BCNO #### [facility] [address] [place] [address] Magnesium [Mass/volume] in S nas or PlasmaOrdered By: Deepa Hendrickson on 09-07-2023 Magnesium [Mass/Vol] 2.1 mg/dL Normal 1.9-2.7 [facility] Comment on above: Order Comment: Reaso n for Exam CKD (chronic kidney disease) stage 4, GFR 15-29 ml/min;Jeremy h Performed By: #### M G, URIC, [id number], RENAL #### [facility] [address] [place], [place] [id number] [facility] Nitrite Test strip Ql (U)Ord ered By: Deepa Hendrickson on 09-07-2023 Nitrite Ql (U) Negative Negative [facility] No Panel InformationOrdered By: Deepa Hendrickson on 09-07-2023 Estimated GFR (CKD-EPI) 30.428 mL/Min [facility] Creatinine Clearance (Chem N/A [facility] Parathyrin.intact [Mass/volu me] in Serum or PlasmaOrdered By: Deepa Hendrickson on 09-07-2023 Parathyrin.intact [Mass/Vol] 17.7 pg/mL [facility] Parathyroid Hormone Intacton 09-07-2023 Parathyroid Hormone Intact 17.7 pg/mL Normal [facility] Comment on above: Order Comment: Reaso n for Exam CKD (chronic kidney disease) stage 4, GFR 15-29 ml/min;Jeremy h Result Comment: PERF ORMED BY: [place] [address] PATHOLOGIST MANAGER PERSONNEL SELECTION RACHEL MONTERO M.D. Performed By: #### P TH #### [place] [address] [place] Phosphate [Mass/volume] in S nas or PlasmaOrdered By: Deepa Emeka on 09-07-2023 Phosphate [Mass/Vol] 3.8 mg/dL Normal 2.5-4.5 [facility] Comment on above: Order Comment: Reaso n for Exam CKD (chronic kidney disease) stage 4, GFR 15-29 ml/min;Jeremy h Performed By: #### M G, URIC, [id number], RENAL #### [place] [address] [place] Platelet mean volume [Entiti c volume] in Blood by Automated countOrdered By: Deepa Emeka on 09-07-2023 Platelet mean volume (Bld) [Entitic vol] 9.2 fL Normal 6.3-10.7 [facility] Comment on above: Order Comment: Reaso n for Exam CKD (chronic kidney disease) stage 4, GFR 15-29 ml/min;Jeremy h Result Comment: PERF ORMED BY: [place] [address] PATHOLOGIST MANAGER PERSONNEL SELECTION RACHEL MONTERO M.D. Performed By: #### C BCNO #### [place] [id number] [place] Platelets [#/volume] in Bloo d by Automated countOrdered By: Deepa Emeka on 09-07-2023 Platelets (Bld) [#/Vol] 216 10*3/uL Normal 150-450 [facility] Comment on above: Order Comment: Reaso n for Exam CKD (chronic kidney disease) stage 4, GFR 15-29 ml/min;Jeremy h Performed By: #### C BCNO #### [place] [address] [place] Potassium [Moles/volume] in Serum or PlasmaOrdered By: Deepa Hendrickson on 09-07-2023 Potassium [Moles/Vol] 4.0 mmol/L Normal 3.5-5.1 [facility] Comment on above: Order Comment: Reaso n for Exam CKD (chronic kidney disease) stage 4, GFR 15-29 ml/min;Jeremy h Performed By: #### M G, URIC, [id number], RENAL #### [facility] [address] Protein Creat Ratio Ur Rando mon 09-07-2023 Creatinine, Urine (Random) > 300.0 High 11.0-20.0 [facility] Comment on above: Order Comment: Reaso n for Exam CKD (chronic kidney disease) stage 4, GFR 15-29 ml/min;Jeremy h Performed By: #### P ROCRERAT #### [facility] [address] [place] [address] Urine Protein/Creatinine Ratio Not performed Normal 0-200 [facility] Comment on above: Order Comment: Reaso n for Exam CKD (chronic kidney disease) stage 4, GFR 15-29 ml/min;Jeremy h Result Comment: PERF ORMED BY: [place] [address] PATHOLOGIST MANAGER PERSONNEL SELECTION RACHEL MONTERO M.D. Performed By: #### P ROCRERAT #### [facility] [address] [place] [address] Protein [Mass/volume] in Uri neOrdered By: Deepa Hendrickson on 09-07-2023 Protein (U) [Mass/Vol] 41 mg/dL High 0-9 [facility] Comment on above: Order Comment: Reaso n for Exam CKD (chronic kidney disease) stage 4, GFR 15-29 ml/min;Jeremy h Performed By: #### P ROCRERAT #### [facility] [address] [place] [address] Renal Function Panelon 09-07 Albumin [Mass/Vol] 4.2 g/dL Normal 3.5-5.7 [facility] Comment on above: Order Comment: Reaso n for Exam CKD (chronic kidney disease) stage 4, GFR 15-29 ml/min;Jeremy h Performed By: #### M G, URIC, [id number], RENAL #### [facility] [address] GFR/1.73 sq M.predicted MDRD (S/P/Bld) [Vol rate/Area] 30.428 mL/min/{1.73_m2} Normal [facility] Comment on above: Order Comment: Reaso n for Exam CKD (chronic kidney disease) stage 4, GFR 15-29 ml/min;Jeremy h Performed By: #### M G, URIC, [id number], RENAL #### [address] Serum or plasma anion gap de terminationOrdered By: Depea Hendrickson on 09-07-2023 Anion gap [Moles/Vol] 10.5 mmol/L Normal 6.0-15.0 [facility] Comment on above: Order Comment: Reaso n for Exam CKD (chronic kidney disease) stage 4, GFR 15-29 ml/min;Jeremy h Performed By: #### M G, URIC, [id number], RENAL #### [address] Sodium [Moles/volume] in Ser um or PlasmaOrdered By: Deepa Hendrickson on 09-07-2023 Sodium [Moles/Vol] 142 mmol/L Normal 136-145 [facility] Comment on above: Order Comment: Reaso n for Exam CKD (chronic kidney disease) stage 4, GFR 15-29 ml/min;Jeremy h Performed By: #### M G, URIC, [id number], RENAL #### [address] Specific gravity Auto test s trip (U) [Rel density]Ordered By: Deepa Hendrickson on 09-07-2023 Specific gravity (U) [Rel density] 1.027 1.001-1.030 [facility] Squamous epithelial cells de tection in urine sediment by light microscopyOrdered By: Deepa Hendrickson on 09-07-2023 Epithelial cells.squamous LM Ql (Urine sed) 10-19 [HPF] 0-2 [facility] Urate [Mass/volume] in Serum or PlasmaOrdered By: Deepa Hendrickson on 09-07-2023 Urate [Mass/Vol] 6.8 mg/dL High 2.3-6.6 [facility] Comment on above: Order Comment: Reaso n for Exam CKD (chronic kidney disease) stage 4, GFR 15-29 ml/min;Jeremy h Performed By: #### M G, URIC, [id number], RENAL #### [facility] [address] [place] [address] [place] Urea nitrogen [Mass/volume] in Serum or PlasmaOrdered By: Deepa Hendrickson on 09-07-2023 Urea nitrogen [Mass/Vol] 30 mg/dL High 7-25 [facility] Comment on above: Order Comment: Reaso n for Exam CKD (chronic kidney disease) stage 4, GFR 15-29 ml/min;Jeremy h Performed By: #### M G, URIC, [id number], RENAL #### [facility] [address] [place] [address] [place] Urine bacteria detection by automated methodOrdered By: Deepa Hendrickson on 09-07-2023 Bacteria Auto Ql (U) Rare None Seen [facility] Urine clarity by refractomet ry automatedOrdered By: Deepa Hendrickson on 09-07-2023 Clarity Refractometry automated (U) Cloudy Clear [facility] Urine glucose measurement by automated test strip (mass/volume)Ordered By: Depea Hendrickson on 09-07-2023 Glucose Auto test strip (U) [Mass/Vol] Normal mg/dL Normal [facility] Urine hemoglobin detection b y automated test stripOrdered By: Deepa Hendrickson on 09-07-2023 Hemoglobin Auto test strip Ql (U) Negative Negative [facility] Urine leukocyte esterase det ection by automated test stripOrdered By: Deepa Hendrickson on 09-07-2023 Leukocyte esterase Auto test strip Ql (U) Negative Negative [facility] Urine pH measurement by auto mated test stripOrdered By: Deepa Hendrickson on 09-07-2023 pH (U) 5.5 [pH] Normal 5.0-9.0 [facility] Comment on above: Order Comment: Reaso n for Exam CKD (chronic kidney disease) stage 4, GFR 15-29 ml/min;Jeremy h Performed By: #### M G, URIC, [id number], RENAL #### [facility] [address] [place] [id number] [place] Urine protein measurement by automated test strip (mass/volume)Ordered By: Deepa Hendrickson on 09-07-2023 Protein (U) [Mass/Vol] 30 mg/dL High Negative [facility] Comment on above: Order Comment: Reaso n for Exam CKD (chronic kidney disease) stage 4, GFR 15-29 ml/min;Jeremy h Performed By: #### M G, URIC, [id number], RENAL #### [facility] [address] [place] [id number] [facility] Urine protein/creatinine rat ioOrdered By: Deepa Hendrickson on 09-07-2023 Protein/Creatinine (U) [Ratio] TNP [facility] Comment on above: Test not performed Urine sediment crystal ident ification by light microscopyOrdered By: Deepa Hendrickson on 09-07-2023 Crystals LM Nom (Urine sed) None seen [HPF] [facility] Urobilinogen Auto test strip (U) [Mass/Vol]Ordered By: Deepa Hendrickson on 09-07-2023 Urobilinogen (U) [Mass/Vol] Normal mg/dL Normal [facility] Vitamin D 25 Hydroxy Totalon 09-07-2023 Vitamin D 25 Hydroxy Total 72.3 ng/mL Normal 30-100 [facility] Comment on above: Order Comment: Reaso n for Exam CKD (chronic kidney disease) stage 4, GFR 15-29 ml/min;Jeremy h Result Comment: VINAY MIN D STATUS 25(OH)VITAMIN D RANGE (ng/mL) Deficient <20 Insufficient 20 to <30 Sufficient 30 to 100 Reference: Austyn MF,Jose NC, Juan VILLARREAL, et al. Evaluation,treatment, and prevention of vitamin D deficiency; an Endocrine Society clinical practice guideline. JCEM. 2010; 96(7):1911-30. PERFORMED BY: [facility] [address] [place] [address] PATHOLOGIST MANAGER PERSONNEL SELECTION RACHEL MONTERO M.D. Performed By: #### M G, URIC, [id number], RENAL #### [facility] [address] Vitamin D+Metabolites [Mass/ volume] in Serum or PlasmaOrdered By: Deepa Hendrickson on 09-07-2023 Vitamin D+Metabolites [Mass/Vol] 72.3 ng/mL 30-100 [facility] Comment on above: VITAMIN D STATUS 25( [place])VITAMIN D RANGE (ng/mL) Deficient <20 Insufficient 20 to <30Sufficient 30 to 100Reference: Austyn MF,Jose NC, Juan VILLARREAL, et al. Evaluation,treatment, and prevention of vitamin D deficiency; an Endocrine Society clinical practice guideline. JCEM. 2010; 96(7):1911-30. Urinalysis - DIPSTICKon Appearance (U) clear [employer] Other Bilirubin Ql (U) Negative [employer] Other Color (U) yellow [facility] Other Glucose Ql (U) Negative [employer] Other Hemoglobin Ql (U) Negative [employer] Other Ketones Ql (U) Negative [employer] Other Leukocyte esterase Test strip Ql (U) Negative [facility] Other Nitrite Ql (U) Negative [employer] Other pH (U) 5.0 [pH] [facility] Other Protein Ql (U) Negative [employer] Other Specific gravity (U) [Rel density] 1.010 [facility] Other Urobilinogen (U) [Mass/Vol] 0.2 mg/dL [facility] [place] Other Urinalysis - DIPSTICK [facility] [place] Other Albumin [Mass/volume] in Ser um or Plasma by Bromocresol green (BCG) dye binding methoOrdered By: Deepa Hendrickson on 03-17-2023 Albumin BCG dye [Mass/Vol] 4.0 g/dL 3.5-5.7 [facility] Automated erythrocytes count in urine sediment (number/area)Ordered By: Deepa Hendrickson on 03-17-2023 RBC Auto (Urine sed) [#/Area] None seen [HPF] 0-4 [facility] Automated leukocytes count i n urine sediment (number/area)Ordered By: Deepa Hendrickson on 03-17-2023 WBC Auto (Urine sed) [#/Area] 3-4 [HPF] 0-4 [facility] Bilirubin Test strip Ql (U)O rdered By: Deepa Hendrickson on 03-17-2023 Bilirubin Ql (U) Negative Negative [facility] Calcium [Mass/volume] in Ser um or PlasmaOrdered By: Deepa Emeka on 03-17-2023 Calcium [Mass/Vol] 9.1 mg/dL 8.6-10.3 [facility] Carbon dioxide, total [Moles /volume] in Serum or PlasmaOrdered By: Deepa Hendrickson on 03-17-2023 CO2 [Moles/Vol] 30.3 mmol/L 21.0-31.0 [facility] Chloride [Moles/volume] in S nas or PlasmaOrdered By: Deepa Hendrickson on 03-17-2023 Chloride [Moles/Vol] 101 mmol/L 98-107 [facility] Color Auto (U)Ordered By: Ab flip Hendrickson on 03-17-2023 Color (U) Yellow Yellow [facility] Creatinine [Mass/volume] in Serum or PlasmaOrdered By: Deepa Hendrickson on 03-17-2023 Creatinine [Mass/Vol] 1.45 mg/dL 0.60-1.20 [facility] Creatinine [Mass/volume] in UrineOrdered By: Deepa Hendrickson on 03-17-2023 Creatinine (U) [Mass/Vol] 35.0 mg/dL 11.0-20.0 [facility] Erythrocyte distribution wid th Auto (RBC) [Ratio]Ordered By: Deepa Hendrickson on 03-17-2023 Erythrocyte distribution width (RBC) [Ratio] 13.9 % 11.9-15.3 [facility] Glucose [Mass/volume] in Ser um or PlasmaOrdered By: Deepa Hendrickson on 03-17-2023 Glucose [Mass/Vol] 90 mg/dL 70-100 [facility] Comment on above: ADA recommended refe rence rangeRandom Glucose Reference Range is dependent on time and content of last meal. Glucose of more than 200 mg/dL in a nonstressed, ambulatory subject supports the diagnosis of Diabetes Mellitus. Hematocrit Auto (Bld) [Volum e fraction]Ordered By: Deepa Hendrickson on 03-17-2023 Hematocrit (Bld) [Volume fraction] 37.9 % 34.0-46.4 [facility] Hemoglobin [Mass/volume] in BloodOrdered By: Deepa Hendrickson on 03-17-2023 Hemoglobin (Bld) [Mass/Vol] 12.8 g/dL 11.8-15.4 [facility] Ketones Auto test strip (U) [Mass/Vol]Ordered By: Deepa Hendrickson on 03-17-2023 Ketones (U) [Mass/Vol] Negative Negative [facility] - UrinalysisOrder ed By: Deepa Hendrickson on 03-17-2023 Hyaline casts LM Ql (Urine sed) 0-8 [LPF] 0-8 [facility] Leukocytes [#/volume] correc mark for nucleated erythrocytes in Blood by Automated counOrdered By: Deepa Hendrickson on 03-17-2023 WBC corrected for nucl RBC Auto (Bld) [#/Vol] 5.1 10*3/uL 3.8-11.6 [facility] MCH Auto (RBC) [Entitic mass ]Ordered By: Deepa Hendrickson on 03-17-2023 MCH (RBC) [Entitic mass] 30.1 pg 24.7-34.3 [facility] MCHC Auto (RBC) [Mass/Vol]Or dered By: Deepa Hendrickson on 03-17-2023 MCHC (RBC) [Mass/Vol] 33.7 g/dL 32.0-35.0 [facility] MCV Auto (RBC) [Entitic vol] Ordered By: Deepa Hendrickson on 03-17-2023 MCV (RBC) [Entitic vol] 89.4 fL 80-100 [facility] Magnesium [Mass/volume] in S nas or PlasmaOrdered By: Deepa Hendrickson on 03-17-2023 Magnesium [Mass/Vol] 2.2 mg/dL 1.9-2.7 [facility] Nitrite Test strip Ql (U)Ord ered By: Deepa Hendrickson on 03-17-2023 Nitrite Ql (U) Negative Negative [facility] No Panel InformationOrdered By: Deepa Hendrickson on 03-17-2023 Estimated GFR (CKD-EPI) 36.014 mL/Min [facility] Creatinine Clearance (Chem N/A [facility] Parathyrin.intact [Mass/volu me] in Serum or PlasmaOrdered By: Deepa Hendrickson on 03-17-2023 Parathyrin.intact [Mass/Vol] 45.6 pg/mL 12-88 [facility] Phosphate [Mass/volume] in S nas or PlasmaOrdered By: Deepa Hendrickson on 03-17-2023 Phosphate [Mass/Vol] 3.2 mg/dL 3.7-7.2 [facility] Platelet mean volume Auto (B ld) [Entitic vol]Ordered By: Deepa Hendrickson on 03-17-2023 Platelet mean volume (Bld) [Entitic vol] 9.0 fL 6.3-10.7 [facility] Platelets Auto (Bld) [#/Vol] Ordered By: Deepa Hendrickson on 03-17-2023 Platelets (Bld) [#/Vol] 187 10*3/uL 150-450 [facility] Potassium [Moles/volume] in Serum or PlasmaOrdered By: Deepa Hendrickson on 03-17-2023 Potassium [Moles/Vol] 4.6 mmol/L 3.5-5.1 [facility] Protein Auto test strip (U) [Mass/Vol]Ordered By: Deepa Hendrickson on 03-17-2023 Protein (U) [Mass/Vol] Negative Negative [facility] Protein [Mass/volume] in Uri neOrdered By: Deepa Emeka on 03-17-2023 Protein (U) [Mass/Vol] 6 mg/dL 0-9 [facility] RBC Auto (Bld) [#/Vol]Ordere d By: Deepa Hendrickson on 03-17-2023 RBC (Bld) [#/Vol] 4.24 10*6/uL 3.60-5.00 [facility] Serum or plasma anion gap de terminationOrdered By: Deepa Hendrickson on 03-17-2023 Anion gap [Moles/Vol] 10.3 mmol/L 6.0-15.0 [facility] Sodium [Moles/volume] in Ser um or PlasmaOrdered By: Deepa Hendrickson on 03-17-2023 Sodium [Moles/Vol] 137 mmol/L 136-145 [facility] Specific gravity Auto test s trip (U) [Rel density]Ordered By: Deepa Hendrickson on 03-17-2023 Specific gravity (U) [Rel density] 1.007 1.001-1.030 [facility] Squamous epithelial cells de tection in urine sediment by light microscopyOrdered By: Deepa Hendrickson on 03-17-2023 Epithelial cells.squamous LM Ql (Urine sed) 1-2 [HPF] 0-2 [facility] Urate [Mass/volume] in Serum or PlasmaOrdered By: Deepa Hendrickson on 03-17-2023 Urate [Mass/Vol] 5.9 mg/dL 2.3-6.6 [facility] Urea nitrogen [Mass/volume] in Serum or PlasmaOrdered By: Deepa Emeka on 03-17-2023 Urea nitrogen [Mass/Vol] 31 mg/dL 7-25 [facility] Urine bacteria detection by automated methodOrdered By: Deepa Hendrickson on 03-17-2023 Bacteria Auto Ql (U) None seen None Seen [facility] Urine clarity by refractomet ry automatedOrdered By: Deepa Hendrickson on 03-17-2023 Clarity Refractometry automated (U) Clear Clear [facility] Urine glucose measurement by automated test strip (mass/volume)Ordered By: Deepa Hendrickson on 03-17-2023 Glucose Auto test strip (U) [Mass/Vol] Normal mg/dL Normal [facility] Urine hemoglobin detection b y automated test stripOrdered By: Deepa Hendrickson on 03-17-2023 Hemoglobin Auto test strip Ql (U) Negative Negative [facility] Urine leukocyte esterase det ection by automated test stripOrdered By: Deepa Hendrickson on 03-17-2023 Leukocyte esterase Auto test strip Ql (U) Negative Negative [facility] Urine protein/creatinine rat ioOrdered By: Deepa Hendrickson on 03-17-2023 Protein/Creatinine (U) [Ratio] 171 mg/g{Cre} 0-200 [facility] Urobilinogen Auto test strip (U) [Mass/Vol]Ordered By: Deepa Hendrickson on 03-17-2023 Urobilinogen (U) [Mass/Vol] Normal mg/dL Normal [facility] Vitamin D+Metabolites [Mass/ volume] in Serum or PlasmaOrdered By: Deepa Hendrickson on 03-17-2023 Vitamin D+Metabolites [Mass/Vol] 73.7 ng/mL 30-100 [facility] Comment on above: VITAMIN D STATUS 25( [place])VITAMIN D RANGE (ng/mL) Deficient <20 Insufficient 20 to <30Sufficient 30 to 100Reference: Austyn MF,Jose OCONNELL, Juan VILLARREAL, et al. Evaluation,treatment, and prevention of vitamin D deficiency; an Endocrine Society clinical practice guideline. JCEM. 2010; 96(7):1911-30. pH Auto test strip (U)Ordere d By: Deepa Hendrickson on 03-17-2023 pH (U) 7.5 [pH] 5.0-9.0 [facility] 36on 11-03-2022 36 Needs appt. Normal [facility] Coding Summary.on 10-02-2022 Coding Summary. CD:[id number] W w+PGhlYWQ+RA5ZUFUmH93 qvOUbuI6iN9ZDDEdFJxzn OZYEQWmQRzHokiIiIX6qe XNjZXJu IC8+WI6zPDGeTgfnwWLij 7U0tVI3P53xpy4oPThfoW Q9EBVeDrIdargvt8riwWl 6IDcuNmluOyBt ZQWezC15HXR6oD86Nx65z QPgkBTcd7bpfUh8UcJcRE MeGZH1fUsfYVqtu8ScLVF uN20pgMKwn1I9 XSZljIgrqASjXdWzuJI8m R9rAVucythra7xwssckKv d1bb07qAVts6G3cSJ3Q0L ncpT1FYYrwRWd RqaedUIOqY6weibxs5jqh jgjVqCjWADtTIo8QSm3CO GukRnpTfIpQJ05IVX4YKO dysBrE5JyDTSi oRcnGoU5f5I2Hh1SN6AGV jtxK6BCJZJBABtrvYP+PC 36kk57U4ZeDaiuXou6LNP qNHD8zEK6vT0o FJFuTWnjx3R5vRN9Y2Ied zKpfh6po8sjLYXkKVyaW1 2mvXJby9F3KHKevSA0FLX fpRtpScCniB06 Oyc+EDLovDvfj8RoZnwqk 2dnm1hmbLm1SlqpGAWkrb AkyEzrLRZ3m5SvKn7lVCT thXH6aWW3mN8m TfOsKaQ6SJkaD163BxIqd JPjYytrV94bG0HueQC+PH UzKvj6YBRzkBxpMT8pY1F hZGRpbmctbGVm nVhkZH9qWDCbjbyxAGRkq Y9tVHCiE3k7JkAhVeI4OP poO5LpXOAvimbiUc81sD3 sMhIoVlP7OTty A5EozxW8MZXjiUKmSHzoX TY8O60qx7V7KLZvQMNpRK N7oRN2sN8jiMekovsomPH mdDsgdmVydGlj CTgfTIrsN232SVMlwMvlU kNvZGluZyBEYXRlOiAgMD MvMjMvMjAyMzwvdGQ+PHR uCUQ0oKnpOWXp fLCfFPfkHl7fsGsciDbgM I9yRWBtdqwlYOCjbU2wBM ZrtJOmbFybTG3bNECygfm lb454KeJsWXS6 UKPmjOVoC9QtqD0tOmUlX LGwNGRuQ2MkmEXvDNzaN1 74UHefZxR3KQWotzUrF1O sLWFsaWduOiB0 v5Y4Gp1Li1MeaztgR3Lpf PReJaDoKsyeEQt5H3QhYw wvdHI+HV09BQTlQA83JXb 2MZT7vWhtIWaq MBHiP6AwhH6fLqYzSTPtA GRkOyc+PHRhYmxlIHdpZH RoPScxMDAlJyBzdHlsZT0 gMv3qPTBuKJPb dYkncNHaZlByx1izRGFpZ KtbSV9aeYqhU2TjqSQ3CA Klm4d9Xi23B15cQ4VxuGG +LRPxfKV6xPE6 rL9dVzHpFeM7DCltN269D bLfyOLdPplyc3rdq5ezfC v2YnK2KQSglnOidUsiRQJ 6z6VaGy38F07q IHdpZHRoPSIxNSUiIHZhb Buyrz4zbF2oMs4+PGNvbC Q5pXT3oL5aDsErFjF9QGf iT431YoMbwGBp Szzgd9gxi2vncSy4KrNvL QQazaQapGdcTVZ3g7UrDy 76N5SljRqhg1DzPxa2qu6 6kKKwv6K2oTI1 X6JxXWIpivdlhYSnyGhnB W8vFDJsbxwfCOWeuC1pLH JyW8u7OcGbZkP8FSxmY5A bvfD8JLVqoOUy LITpvVLQcJ4qscjeh0mhn qwrLsVlKOIfZVq3GXd7IU RmmJcoPjXiBKC8UfL9HJF 4bINnxP6giWte btzgdV9sOgv+KAE8sMVek BGJYN6dTzvqnJP+PHRkIH O4hEihWRquIFDfgG2nORV bX2d7EnJnBaN9 RKpbA5IohsD5RBDugGBaX BAjzYHPqH2oxwlin5aneu tmCcIuJONeNYp6AJg6ARD saWduOiBsZWZ0 RsP5PSM5wEBmpM2qbOgja zhbcQ5qBdz+QmlydGggRG A4JYg1M9VdCpf4EGBbjQq gBU0jfRFpWMgg Dv6lkAzsqRreDL1pMXEbq ufvk796NoEsh7hfQIMthK PpVCeqYCX0X83fg1X0ITR sSAYmWCD2hLF4 aL3vyIrlahktcROdrAqwk vFzjFdvBTzuJKmfM902ZM BbrAbyZqDePPx6D3YpMog 5MXUioEhrKT7r kEPmLWfhWh9ouAhdjQqqW Y9nVZNezciye391XvRcf0 bvTVRhtZWpRMcjCZU5F78 ud8E2YVOnJAZp TWA4nYL2xD2vqWafyoeub GVmdDsgdmVydGljYWwtYW pcA164ROZjdOmtZlUgrOu 3K6JwSlf8UIXv dSsxCA1trEFiAIvmWp0av OhipYkiHX1cEYYlarpvb2 13XeSue2oqNDIfiGJlSXs uJCM6E14qf5J8 UQMjSILxHIO8vGM9uL4em GlnbjogbGVmdDsgdmVydG jkTOnxWOadO783BBYmsTw nPlBhdGllbnQg CKdjXGn0Q9QbRsrijZN+P X47UEHjFT56vRJhbPMpi6 tedDk9XvMeTYVuMWW5nBk yBCtll3IlPPMx X61iiVGpj6J0EIJnaVkgd BAgQlNyyWY3iT2gOTcwsq hxc5iatpdeOluef8abvf7 4uM73J82nZMix ZHRoPSIzMCUiIHZhbGlnb m2nfV6vBn5+GUZafFG6tV A2xS1rNXJiGiI0QCwmK36 9InRvcCIvPjxj q3mly7akpEg0AbB0KEJeo oEpeZonZHM6o1MsVx81Q8 9sIHdpZHRoPSIyMCUiIHZ idQrjqq5xpR2c Ii8+YSPpkVT7xML0xG8cJ cDkKgS1HKlmQ864EcHmqX WdCukkD49oL7TseIF+PHR yPfz3YWBthVbj JQ1cvFXdPFdoFc1eWFZ2B hVfXeZiYKckT7OiWSOtpe bmqxhsiEJ6NTHkJJQirU0 9Li2qkKrhDJJe wGGUbK7zqwjuy0whanxyU oVuJAPqYRe3QQj6GVMngQ ryWmYaRNS4DyT1CSM5nHJ jfA5dmQwshyvm wG2yD3EmUYMdrmqlAm67z F5hEoXiJvB9OIhsExz+Ul YTLzsETpguJ3QoPI7ZXGL WWQ47UD66jPBa i5N7lCV3I9JiYEBmqodqq grxfZZ4IEVbWKWaeD75nC EoPNslIv0kd5V4k616MET dGSNjzT93Qe5h gFvwKDIzmQLVvI5gachom 3ryumfiDwJvEXOrAFz3AH w2CBEtiVviYoEjKNW9JxV 6OLC9pFPqdF6e yWdonbgumX2rEux+MTIvM VtlSDm0URqdpQY+PHRkIH U1zUihIHypQONpqK6xOMR yG3x2LgMlIwC8 SVraC4DjMNDyrumuOk66p H4sTdMaMtO3QLupN6Yvxt M9SXPksMTeHPnnHHO6A91 xm0P4KUMrWNOn ZQM4dWD2oP7npXquncspj GVmdDsgdmVydGljYWwtYW yeD066LDWsuWriMefvHQc gFPTvRU64IQ17 iEChk4E6yBA1P6BdYJNhe ryswpkhlGJ6YUPyRQKouL 53yUWfVUrvKr9fb6M8k24 5HODbIDZbvB11 Il0enDypZRBykESYkR2zr cbug7zdeqwpAqElQCQrWG f0JEn9WNDtaXqjFnYfNMY 4RuW2BMD2cUVg yV8vnXtenkbiiJ3hUsv+R mYbISkjDL65DS20mZRud4 K5wFC0P4YqMAOngdarneq djVC1YAKgREIf iB76rGAjCHppFj0ac9H2h 925HTDxETJsjJ42Rl5flX evZBVumOKWwU7sqbyyc7q vcjogIzAwMDAw JSs9ABl3ECZygWviIbVpY PU9JsD2CZR2cGQfgU7jsJ yqcpialX5fRcs+TGFiIER mp3Gbu1LlVN83 DF10C3WbTgwbjCYipZO+P HRhYmxlIHdpZHRoPScxMD UrSfMtcWhwND7xOb9qUZE yLWNvbGxhcHNl MyWkf2reYKXtPTakND2xg FvwB8NhgRQ7JVGnv8k1Kk 78U23xP3PgaEM+PGNvbCB 7wPI3dV5mPtBo NsO4AOmvX515FmRakDSvS bmzm8xdi2divXb6WkIgIW PjymIwrGhmAKK7q9CgGz3 8J54aEUkuQJPt VZUfOTFlUXGadKpngu5at G9wIi8+RCSbiPS3yXI9sH 3aPhVaWlW9TRmdF042SuN tcAUzFgxbY93r A5WcmFK+DSNbJkw5LEHxh LpvPK5kbZKhPCjgZr2iON D5ArDrWyKvQUdiF3QsNWZ pbmctcmlnaHQ6 ITNbPVJdaN06Mx0rvUemE a2mGPIlCLR7DMZebLPtJ6 OupU4lSxFtKFIdSUSnA6C ioIKjAFsmQ988 MKdzKeP9ZTWbamIwC6TpS NZdyKglOgC9a2E9Gy2ZjU nsuOOuSQ4uPuSjFRf8M7V rZlv6TNCfgLve ML3ptEVfSKvnIq5cjXqdu MfqUT3dZJQnolbyt289Dg Iio5egRUCfuGXzEErxRSX 9O92dt4I5NTKh IFAbPLT1lMC1iT9emYvmr jogbGVmdDsgdmVydGljYW xvMFraK919YYMpmSkyZuO XIhj7H4MbLwi5 JTLphIoxGM0obFZwFHagT h2jrHojaDfwMJ2rWGGzyj voo339KtTpg0tvVEVivMF vIAvuUFP6O86q a5C7RKJyMGGxCHL6qLA4k A7giRpujmpgxAKnyJasfy AhgZznDZsgDRruY284OJT asJphZh7WNdo3 E0GkZxy3NASmnOflZO8xb KJzLGyiOi3paEfhaXfkHS 1cAJEqccduz084VkSwa2h kIDEwcHQgVGlt NSD5W23no3Q0HOKuTLKeF TH7xMF6rY2jwVcopnsgiJ VmdDsgdmVydGljYWwtYWx fP084PLOouQlc PlBheWVyOjwvdGQ+PC90c q05Z3QvCnwpLnd4SPZwAI N2hRQ5yE6hMNVqZJtyi6Y 9qTS4M0WcwyOz ki4oi4gq (more content not included)... Normal [facility] C Urineon 09-25-2022 Bacteria identified Cx Nom (U) Microbiology PROCEDURE: Urine Culture [R1] SOURCE: U Random BODY SITE: COLLECTED DATE/TIME: 09/23/2022 11:24 EDT RECEIVED DATE/TIME: 09/23/2022 18:09 EDT START DATE/TIME: 09/23/2022 18:09 EDT FREE TEXT SOURCE: SHONNA MO PA-C, PA-C, SHONNA Quarles FINAL REPORTS Final Report [] Verified Date/Time: 09/25/2022 09:26 EDT 2,000 cfu/ml Mixed skin contaminants Performing Locations R1: This test was performed at: [facility], [address] [place] [address], [facility]- , , Normal [facility] Comment on above: Performed By: #### [id number] #### [facility] [address] [place] [address] Albumin [Mass/volume] in Ser um or Plasma by Bromocresol green (BCG) dye binding methoOrdered By: Deepa Hendrickson on 09-23-2022 Albumin BCG dye [Mass/Vol] 4.2 g/dL 3.5-5.7 [facility] Ambulatory Visit Summaryon 0 09-23-2022 Ambulatory Visit Summary ELLA FRANK :1940 Visit Date:09/23/2022 Ambulatory Visit Instructions Your Diagnosis Stress incontinence Recurrent UTI Postinfective urethral stricture in female Tests Performed Urnls Dip Stick Auto w/o Microscopy POC 32576 Your Care Team Attending Physician - SHONNA MO PA-C Primary Care Physician - DAVID PIKE MD This Is Your Medications List Contact prescribing physician if questions or concerns Non-Formulary Medication (proctazone-hc) amitriptyline (Elavil 25 mg Tab) aspirin (aspirin 81 mg oral tablet) calcium carbonate (calcium (as carbonate) 600 mg oral tablet) calcium-vitamin D (Calcium 600+D) cholecalciferol (Vitamin D3) clonazepam (ClonazePAM 0.5 mg Tab) gemfibrozil (gemfibrozil 600 mg Tab) hydrochlorothiazide (hydrochlorothiazide 12.5 mg Tab) levothyroxine lisinopril (lisinopril 40 mg Tab) multivitamin with minerals (Multivitamins and Minerals) multivitamin with minerals (PreserVision AREDS 2 oral capsule) niacin omega-3 polyunsaturated fatty acids (Fish Oil) omeprazole (omeprazole 20 mg Cap-DR) Procedures Performed Cystourethroscopy with dilation of urethral stricture (02/06/2020), Cystoscopy (08/31/2015), left cataract with iol (06/12/2015), Cystoscopy (12/12/2011), Caesarean section, Cataract. Discharge Vitals Heart Rate (Peripheral) 70 Blood Pressure 144/74 Height 152 cm Height 60 in Weight 68 kg Weight 149.6 lb BMI 29.43 What to do next You Need to Schedule the Following Appointments Follow Up with SHONNA MO PA-C, URL When: Where: [address] [place] [address] Medications What How Much When Instructions Unchanged amitriptyline (Elavil 25 mg Tab) 1 Tablets By Mouth Once a day (at bedtime) Contact prescribing physician if questions or concerns Unchanged aspirin (aspirin 81 mg oral tablet) 1 Tablets By Mouth Every day Contact prescribing physician if questions or concerns Unchanged calcium carbonate (calcium (as carbonate) 600 mg oral tablet) 2 Tablets By Mouth Every day Contact prescribing physician if questions or concerns Unchanged calcium-vitamin D (Calcium 600+D) 1 tablet By Mouth At bedtime Contact prescribing physician if questions or concerns Unchanged cholecalciferol (Vitamin D3) 1,000 International unit By Mouth Every day Contact prescribing physician if questions or concerns Unchanged clonazepam (ClonazePAM 0.5 mg Tab) 1 Tablets By Mouth Every day Contact prescribing physician if questions or concerns Unchanged gemfibrozil (gemfibrozil 600 mg Tab) 1 Tablets By Mouth 2 times a day Contact prescribing physician if questions or concerns Unchanged hydrochlorothiazide (hydrochlorothiazide 12.5 mg Tab) Contact prescribing physician if questions or concerns Unchanged levothyroxine 50 Microgram By Mouth Every day Contact prescribing physician if questions or concerns Unchanged lisinopril (lisinopril 40 mg Tab) 1 Tablets By Mouth Every day Contact prescribing physician if questions or concerns Unchanged multivitamin with minerals (Multivitamins and Minerals) 1 tablet By Mouth At bedtime Contact prescribing physician if questions or concerns Unchanged multivitamin with minerals (PreserVision AREDS 2 oral capsule) 1 Capsules By Mouth Every day Contact prescribing physician if questions or concerns Unchanged niacin 1 tablet By Mouth At bedtime Contact prescribing physician if questions or concerns Unchanged Non-Formulary Medication (proctazone-hc) Contact prescribing physician if questions or concerns Unchanged omega-3 polyunsaturated fatty acids (Fish Oil) 1 tablet By Mouth At bedtime Contact prescribing physician if questions or concerns Unchanged omeprazole (omeprazole 20 mg Cap-DR) 1 Capsules By Mouth Once a day (in the morning) Contact prescribing physician if questions or concerns Test Results Urnls Dip Stick Auto w/o Microscopy POC 84053 (09/23/2022) Bilirubin Urine Dipstick - Negative Blood Urine Dipstick - Negative Glucose Urine Dipstick - Negative Ketones Urine Dipstick - Negative Leukocytes Urine Dipstick - 3+ Large Nitrite Urine Dipstick - Negative Protein Urine Dipstick - Trace Specific [place] Urine Dipstick - 1.020 Urine Appearance Urine Dipstick - Clear Urine Color Urine Dipstick - Yellow Urobilinogen Urine Dipstick - Normal 0.2-1 EU/dl pH Urine Dipstick - 7 Allergies statins (Unknown) Decongestant (Rash) Macrodantin (Diarrhea) antihistamine/deconge stants (itching/hives) penicillins (itching/rash) Problems Ongoing - Any problem that you are currently receiving treatment for. BMI 30.0-30.9,adult Cystitis Mixed incontinence Nocturia Post-void dribbling Postinfective urethral stricture in female Recurrent UTI Stress incontinence Urgency incontinence [employer] Urinary Incontinence Urinary incontinence refers to a condition in which a person is unable to control wher (more content not included)... Normal [facility] Automated erythrocytes count in urine sediment (number/area)Ordered By: Deepa Hendrickson on 09-23-2022 RBC Auto (Urine sed) [#/Area] 0-1 [HPF] 0-4 [facility] Automated leukocytes count i n urine sediment (number/area)Ordered By: Deepa Hendrickson on 09-23-2022 WBC Auto (Urine sed) [#/Area] 0-1 [HPF] 0-4 [facility] Basophils Auto (Bld) [#/Vol] Ordered By: David Pike on 09-23-2022 Basophils (Bld) [#/Vol] 0.0 10*3/uL 0.0-0.2 [facility] Basophils/100 WBC Auto (Bld) Ordered By: David Pike on 09-23-2022 Basophils/100 WBC (Bld) 0.8 % . [facility] Bilirubin Test strip Ql (U)O rdered By: Deepa Hendrickson on 09-23-2022 Bilirubin Ql (U) Negative Negative [facility] Calcium [Mass/volume] in Ser um or PlasmaOrdered By: Deepa Hendrickson on 09-23-2022 Calcium [Mass/Vol] 10.5 mg/dL 8.6-10.3 [facility] Carbon dioxide, total [Moles /volume] in Serum or PlasmaOrdered By: Deepa Hendrickson on 09-23-2022 CO2 [Moles/Vol] 30.8 mmol/L 21.0-31.0 [facility] Chloride [Moles/volume] in S nas or PlasmaOrdered By: Deepa Hendrickson on 09-23-2022 Chloride [Moles/Vol] 102 mmol/L 98-107 [facility] Color Auto (U)Ordered By: Ab flip Hendrickson on 09-23-2022 Color (U) Yellow Yellow [facility] Creatinine [Mass/volume] in Serum or PlasmaOrdered By: Deepa Emeka on 09-23-2022 Creatinine [Mass/Vol] 1.76 mg/dL 0.60-1.20 [facility] Creatinine [Mass/volume] in UrineOrdered By: Deepa Emeka on 09-23-2022 Creatinine (U) [Mass/Vol] 90.0 mg/dL [facility] Comment on above: No reference range e stablished Eosinophils Auto (Bld) [#/Vo l]Ordered By: David Pike on 09-23-2022 Eosinophils (Bld) [#/Vol] 0.3 10*3/uL 0.0-0.45 [facility] Eosinophils/100 WBC Auto (Bl d)Ordered By: David Pike on 09-23-2022 Eosinophils/100 WBC (Bld) 5.3 % . [facility] Erythrocyte distribution wid th Auto (RBC) [Ratio]Ordered By: David Pike on 09-23-2022 Erythrocyte distribution width (RBC) [Ratio] 13.9 % 11.9-15.3 [facility] Glucose [Mass/volume] in Ser um or PlasmaOrdered By: Deepa Hendrickson on 09-23-2022 Glucose [Mass/Vol] 111 mg/dL 74-109 [facility] Comment on above: ADA recommended refe rence rangeRandom Glucose Reference Range is dependent on time and content of last meal. Glucose of more than 200 mg/dL in a nonstressed, ambulatory subject supports the diagnosis of Diabetes Mellitus. Hematocrit Auto (Bld) [Volum e fraction]Ordered By: David Pike on 09-23-2022 Hematocrit (Bld) [Volume fraction] 37.2 % 34.0-46.4 [facility] Hemoglobin [Mass/volume] in BloodOrdered By: David Pike on 09-23-2022 Hemoglobin (Bld) [Mass/Vol] 12.9 g/dL 11.8-15.4 [facility] Ketones Auto test strip (U) [Mass/Vol]Ordered By: Deepa Hendrickson on 09-23-2022 Ketones (U) [Mass/Vol] Negative Negative [facility] - Chemistry and C hemistry - challengeOrdered By: Deepa Hendrickson on 09-23-2022 GFR/1.73 sq M.predicted MDRD (S/P/Bld) [Vol rate/Area] 28.542 mL/min/{1.73_m2} [facility] - UrinalysisOrder ed By: Deepa Hendrickson on 09-23-2022 Hyaline casts LM Ql (Urine sed) 0-8 [LPF] 0-8 [facility] Leukocytes [#/volume] correc mark for nucleated erythrocytes in Blood by Automated counOrdered By: David Pike on 09-23-2022 WBC corrected for nucl RBC Auto (Bld) [#/Vol] 5.4 10*3/uL 3.8-11.6 [facility] Lymphocytes Auto (Bld) [#/Vo l]Ordered By: David Pike on 09-23-2022 Lymphocytes (Bld) [#/Vol] 1.4 10*3/uL 1.00-4.8 [facility] Lymphocytes/100 WBC Auto (Bl d)Ordered By: David Pike on 09-23-2022 Lymphocytes/100 WBC (Bld) 25.5 % . [facility] MCH Auto (RBC) [Entitic mass ]Ordered By: David Pike on 09-23-2022 MCH (RBC) [Entitic mass] 30.2 pg 24.7-34.3 [facility] MCHC Auto (RBC) [Mass/Vol]Or dered By: David Pike on 09-23-2022 MCHC (RBC) [Mass/Vol] 34.7 g/dL 32.0-35.0 [facility] MCV Auto (RBC) [Entitic vol] Ordered By: David Pike on 09-23-2022 MCV (RBC) [Entitic vol] 87.2 fL 80-100 [facility] Magnesium [Mass/volume] in S nas or PlasmaOrdered By: Deepa Hendrickson on 09-23-2022 Magnesium [Mass/Vol] 2.3 mg/dL 1.9-2.7 [facility] Monocytes Auto (Bld) [#/Vol] Ordered By: David Pike on 09-23-2022 Monocytes (Bld) [#/Vol] 0.4 10*3/uL 0.0-0.8 [facility] Monocytes/100 WBC Auto (Bld) Ordered By: David Pike on 09-23-2022 Monocytes/100 WBC (Bld) 7.6 % . [facility] Neutrophils Auto (Bld) [#/Vo l]Ordered By: David Pike on 09-23-2022 Neutrophils (Bld) [#/Vol] 3.3 10*3/uL 1.8-7.7 [facility] Neutrophils/100 WBC Auto (Bl d)Ordered By: David Pike on 09-23-2022 Neutrophils/100 WBC (Bld) 60.8 % . [facility] Nitrite Test strip Ql (U)Ord ered By: Deepa Hendrickson on 09-23-2022 Nitrite Ql (U) Negative Negative [facility] No Panel InformationOrdered By: Deepa Hendrickson on 09-23-2022 Pharmacy Creatinine Clearance (Chem N/A [facility] Nucleated erythrocytes [Pres ence] in Blood by Automated countOrdered By: David Pike on 09-23-2022 Nucleated RBC Auto Ql (Bld) 0.2 /100{WBC} 0-0.5 [facility] Parathyrin.intact [Mass/volu me] in Serum or PlasmaOrdered By: Deepa Hendrickson on 09-23-2022 Parathyrin.intact [Mass/Vol] 11.0 pg/mL [facility] Patient Educationon 09-24-19 Patient Education Urology Urinary Incontinence Urinary incontinence refers to a condition in which a person is unable to control where and when to pass urine. A person with this condition will urinate when he or she does not mean to (involuntarily). What are the causes? This condition may be caused by: ? Medicines. ? Infections. ? Constipation. ? Overactive bladder muscles. ? Weak bladder muscles. ? Weak pelvic floor muscles. These muscles provide support for the bladder, intestine, and, in women, the uterus. ? Enlarged prostate in men. The prostate is a gland near the bladder. When it gets too big, it can pinch the urethra. With the urethra blocked, the bladder can weaken and lose the ability to empty properly. ? Surgery. ? Emotional factors, such as anxiety, stress, or post-traumatic stress disorder (PTSD). ? Pelvic organ prolapse. This happens in women when organs shift out of place and into the vagina. This shift can prevent the bladder and urethra from working properly. What increases the risk? The following factors may make you more likely to develop this condition: ? Older age. ? Obesity and physical inactivity. ? and childbirth. ? Menopause. ? Diseases that affect the nerves or spinal cord (neurological diseases). ? Long-term (chronic) coughing. This can increase pressure on the bladder and pelvic floor muscles. What are the signs or symptoms? Symptoms may vary depending on the type of urinary incontinence you have. They include: ? A sudden urge to urinate, but passing urine involuntarily before you can get to a bathroom (urge incontinence). ? Suddenly passing urine with any activity that forces urine to pass, such as coughing, laughing, exercise, or sneezing (stress incontinence). ? Needing to urinate often, but urinating only a small amount, or constantly dribbling urine (overflow incontinence). ? Urinating because you cannot get to the bathroom in time due to a physical disability, such as arthritis or injury, or communication and thinking problems, such as Alzheimer disease (functional incontinence). How is this diagnosed? This condition may be diagnosed based on: ? Your medical history. ? A physical exam. ? Tests, such as: ? Urine tests. ? X-rays of your kidney and bladder. ? Ultrasound. ? CT scan. ? Cystoscopy. In this procedure, a health care provider inserts a tube with a light and camera (cystoscope) through the urethra and into the bladder in order to check for problems. ? Urodynamic testing. These tests assess how well the bladder, urethra, and sphincter can store and release urine. There are different types of urodynamic tests, and they vary depending on what the test is measuring. To help diagnose your condition, your health care provider may recommend that you keep a log of when you urinate and how much you urinate. How is this treated? Treatment for this condition depends on the type of incontinence that you have and its cause. Treatment may include: ? Lifestyle changes, such as: ? Quitting smoking. ? Maintaining a healthy weight. ? Staying active. Try to get 150 minutes of moderate-intensity exercise every week. Ask your health care provider which activities are safe for you. ? Eating a healthy diet. ? Avoid high-fat foods, like fried foods. ? Avoid refined carbohydrates like white bread and white rice. ? Limit how much alcohol and caffeine you drink. ? Increase your fiber intake. Foods such as fresh fruits, vegetables, beans, and whole grains are healthy sources of fiber. ? Pelvic floor muscle exercises. ? Bladder training, such as lengthening the amount of time between bathroom breaks, or using the bathroom at regular intervals. ? Using techniques to suppress bladder urges. This can include distraction techniques or controlled breathing exercises. ? Medicines to relax the bladder muscles and prevent bladder spasms. ? Medicines to help slow or prevent the growth of a man's prostate. ? Botox injections. These can help relax the bladder muscles. ? Using pulses of electricity to help change bladder reflexes (electrical nerve stimulation). ? For women, using a medical office administrator to prevent urine leaks. This is a small, tampon-like, disposable device that is inserted into the urethra. ? Injecting collagen or carbon beads (bulking agents) into the urinary sphincter. These can help thicken tissue and close the bladder opening. ? Surgery. Follow these instructions at home: Lifestyle ? Limit alcohol and caffeine. These can fill your bladder quickly and irritate it. ? Keep yourself clean to help prevent odors and skin damage. Ask your doctor about special skin creams and cleansers that can protect the skin from urine. ? Consider wearing pads or adult diapers. Make sure to change them regularly, and always change them right after experiencing incontinence. General instructions ? Take [id number] and prescription medicines only as (more content not included)... Normal [facility] Phosphate [Mass/volume] in S nas or PlasmaOrdered By: Deepa Hendrickson on 09-23-2022 Phosphate [Mass/Vol] 3.7 mg/dL 3.7-7.2 [facility] Platelet mean volume Auto (B ld) [Entitic vol]Ordered By: David Pike on 09-23-2022 Platelet mean volume (Bld) [Entitic vol] 8.8 fL 6.3-10.7 [facility] Platelets Auto (Bld) [#/Vol] Ordered By: David Pike on 09-23-2022 Platelets (Bld) [#/Vol] 199 10*3/uL 150-450 [facility] Potassium [Moles/volume] in Serum or PlasmaOrdered By: Deepa Hendrickson on 09-23-2022 Potassium [Moles/Vol] 3.7 mmol/L 3.5-5.1 [facility] Protein Auto test strip (U) [Mass/Vol]Ordered By: Deepa Hendrickson on 09-23-2022 Protein (U) [Mass/Vol] Negative Negative [facility] Protein [Mass/volume] in Uri neOrdered By: Deepa Hendrickson on 09-23-2022 Protein (U) [Mass/Vol] 12 mg/dL 0-9 [facility] RBC Auto (Bld) [#/Vol]Ordere d By: David Pike on 09-23-2022 RBC (Bld) [#/Vol] 4.27 10*6/uL 3.60-5.00 [facility] Serum or plasma anion gap de terminationOrdered By: Deepa Hendrickson on 09-23-2022 Anion gap [Moles/Vol] 12.9 mmol/L 6.0-15.0 [facility] Sodium [Moles/volume] in Ser um or PlasmaOrdered By: Deepa Hendrickson on 09-23-2022 Sodium [Moles/Vol] 142 mmol/L 136-145 [facility] Specific gravity Auto test s trip (U) [Rel density]Ordered By: Deepa Hendrickson on 09-23-2022 Specific gravity (U) [Rel density] 1.013 1.001-1.030 [facility] Squamous epithelial cells de tection in urine sediment by light microscopyOrdered By: Deepa Hendrickson on 09-23-2022 Epithelial cells.squamous LM Ql (Urine sed) None seen [HPF] 0-2 [facility] Thyrotropin [Units/volume] i n Serum or PlasmaOrdered By: David Pike on 09-23-2022 TSH Qn 4.66 m[IU]/L 0.45-5.33 [facility] Thyroxine (T4) free [Mass/vo lume] in Serum or PlasmaOrdered By: David Pike on 09-23-2022 Free T4 [Mass/Vol] 1.03 ng/dL 0.61-1.12 [facility] Urate [Mass/volume] in Serum or PlasmaOrdered By: Deepa Hendrickson on 09-23-2022 Urate [Mass/Vol] 7.8 mg/dL 2.3-6.6 [facility] Urea nitrogen [Mass/volume] in Serum or PlasmaOrdered By: Deepa Hendrickson on 09-23-2022 Urea nitrogen [Mass/Vol] 33 mg/dL 7-25 [facility] Urine bacteria detection by automated methodOrdered By: Deepa Hendrickson on 09-23-2022 Bacteria Auto Ql (U) None seen None Seen [facility] Urine clarity by refractomet ry automatedOrdered By: Deepa Hendrickson on 09-23-2022 Clarity Refractometry automated (U) Cloudy Clear [facility] Urine glucose measurement by automated test strip (mass/volume)Ordered By: Deepa Hendrickson on 09-23-2022 Glucose Auto test strip (U) [Mass/Vol] Normal mg/dL Normal [facility] Urine hemoglobin detection b y automated test stripOrdered By: Deepa Hendrickson on 09-23-2022 Hemoglobin Auto test strip Ql (U) Negative Negative [facility] Urine leukocyte esterase det ection by automated test stripOrdered By: Deepa Hendrickson on 09-23-2022 Leukocyte esterase Auto test strip Ql (U) Negative Negative [facility] Urine protein/creatinine rat ioOrdered By: Deepa Hendrickson on 09-23-2022 Protein/Creatinine (U) [Ratio] 133 mg/g{Cre} 0-200 [facility] Urobilinogen Auto test strip (U) [Mass/Vol]Ordered By: Deepa Hendrickson on 09-23-2022 Urobilinogen (U) [Mass/Vol] Normal mg/dL Normal [facility] Vitamin B12 ser/plasOrdered By: David Pike on 09-23-2022 Cobalamin (Vitamin B12) [Mass/Vol] 1245 pg/mL 180-914 [facility] Vitamin D+Metabolites [Mass/ volume] in Serum or PlasmaOrdered By: Deepa Hendrickson on 09-23-2022 Vitamin D+Metabolites [Mass/Vol] 59.0 ng/mL 30-100 [facility] Comment on above: VITAMIN D STATUS 25( [place])VITAMIN D RANGE (ng/mL) Deficient <20 Insufficient 20 to <30Sufficient 30 to 100Reference: Austyn ROSAS,Jose OCONNELL, Juan VILLARREAL, et al. Evaluation,treatment, and prevention of vitamin D deficiency; an Endocrine Society clinical practice guideline. JCEM. 2010; 96(7):1911-30. WBC Auto (Bld) [#/Vol]Ordere d By: David Pike on 09-23-2022 WBC (Bld) [#/Vol] 5.4 10*3/uL 3.8-11.6 [facility] pH Auto test strip (U)Ordere d By: Deepa Hendrickson on 09-23-2022 pH (U) 7.0 [pH] 5.0-9.0 [facility] Automated erythrocytes count in urine sediment (number/area)Ordered By: Deepa Hendrickson on 03-19-2022 RBC Auto (Urine sed) [#/Area] 0-1 [HPF] 0-4 [facility] Automated leukocytes count i n urine sediment (number/area)Ordered By: Deepa Hendrickson on 03-19-2022 WBC Auto (Urine sed) [#/Area] 10-19 [HPF] 0-4 [facility] Bilirubin Test strip Ql (U)O rdered By: Deepa Hendrickson on 03-19-2022 Bilirubin Ql (U) Negative Negative [facility] Blood hemoglobin measurement (mass/volume)Ordered By: Deepa Hendrickson on 03-19-2022 Hemoglobin (Bld) [Mass/Vol] 12.0 g/dL 11.8-15.4 [facility] Body fluid albumin measureme nt (mass/volume)Ordered By: Deepa Hendrickson on 03-19-2022 Albumin (Body fld) [Mass/Vol] 3.6 g/dL 3.2-5.5 [facility] Color Auto (U)Ordered By: Ab flip Hendrickson on 03-19-2022 Color (U) Yellow Yellow [facility] Creatinine [Mass/volume] in UrineOrdered By: Deepa Hendrickson on 03-19-2022 Creatinine (U) [Mass/Vol] 135.4 mg/dL [facility] Comment on above: No reference range e stablished Creatinine and Glomerular fi ltration rate.predicted panel (S/P/Bld)Ordered By: Deepa Hendrickson on 03-19-2022 Creatinine [Mass/Vol] 1.73 mg/dL 0.44-1.03 [facility] Erythrocyte distribution wid th Auto (RBC) [Ratio]Ordered By: Deepa Hendrickson on 03-19-2022 Erythrocyte distribution width (RBC) [Ratio] 14.2 % 11.9-15.3 [facility] Estimated glomerular filtrat ion rate (GFR) non- AmericanOrdered By: Deepa Hendrickson on 03-19-2022 GFR/1.73 sq M.predicted among non-blacks MDRD (S/P/Bld) [Vol rate/Area] 28 mL/Min [facility] Hematocrit Auto (Bld) [Volum e fraction]Ordered By: Deepa Hendrickson on 03-19-2022 Hematocrit (Bld) [Volume fraction] 36.1 % 34.0-46.4 [facility] Ketones Auto test strip (U) [Mass/Vol]Ordered By: Deepa Hendrickson on 03-19-2022 Ketones (U) [Mass/Vol] Negative Negative Fi [facility] - Chemistry and C hemistry - challengeOrdered By: Deepa Hendrickson on 03-19-2022 Magnesium [Mass/Vol] 2.2 mg/dL 1.6-2.6 [facility] - UrinalysisOrder ed By: Deepa Hendrickson on 03-19-2022 Hyaline casts LM Ql (Urine sed) 0-8 [LPF] 0-8 [facility] MCH Auto (RBC) [Entitic mass ]Ordered By: Deepa Hendrickson on 03-19-2022 MCH (RBC) [Entitic mass] 30.0 pg 24.7-34.3 [facility] MCHC Auto (RBC) [Mass/Vol]Or dered By: Deepa Hendrickson on 03-19-2022 MCHC (RBC) [Mass/Vol] 33.2 g/dL 32.0-35.0 [facility] MCV Auto (RBC) [Entitic vol] Ordered By: Deepa Hendrickson on 03-19-2022 MCV (RBC) [Entitic vol] 90.3 fL 80-100 [facility] Nitrite Test strip Ql (U)Ord ered By: Deepa Hendrickson on 03-19-2022 Nitrite Ql (U) Negative Negative [facility] No Panel InformationOrdered By: Deepa Hendrickson on 03-19-2022 25-Hydroxy Vitamin D Total 77.3 ng/mL 30-100 [facility] Comment on above: VITAMIN D STATUS 25( [place])VITAMIN D RANGE (ng/mL) Deficient <20 Insufficient 20 to <30 Sufficient 30 to 100 Reference: Austyn MF,Jose NC, Juan VILLARREAL, et al. Evaluation,treatment, and prevention of vitamin D deficiency; an Endocrine Society clinical practice guideline. JCEM. 2010; 96(7):1911-30. Estimated GFR () 34 mL/Min [facility] Comment on above: GFR estimated refere nce range: According to KDOQI guidelines, <60 ml/min/1.73m2 is sufficient to diagnose a patient with chronic kidney disease. Pharmacy Creatinine Clearance (Chem N/A [facility] Phosphate [Mass/volume] in S nas or PlasmaOrdered By: Deepa Hendrickson on 03-19-2022 Phosphate [Mass/Vol] 4.1 mg/dL 2.5-4.6 [facility] Platelet mean volume Auto (B ld) [Entitic vol]Ordered By: Deepa Hendrickson on 03-19-2022 Platelet mean volume (Bld) [Entitic vol] 9.1 fL 6.3-10.7 [facility] Platelets Auto (Bld) [#/Vol] Ordered By: Deepa Hendrickson on 03-19-2022 Platelets (Bld) [#/Vol] 242 10*3/uL 150-450 [facility] Protein Auto test strip (U) [Mass/Vol]Ordered By: Deepa Hendrickson on 03-19-2022 Protein (U) [Mass/Vol] Negative Negative [facility] Protein [Mass/volume] in Uri neOrdered By: Deepa Hendrickson on 03-19-2022 Protein (U) [Mass/Vol] 13 mg/dL 0-9 Fi [facility] RBC Auto (Bld) [#/Vol]Ordere d By: Deepa Hendrickson on 03-19-2022 RBC (Bld) [#/Vol] 4.00 10*6/uL 3.60-5.00 [facility] Serum or plasma anion gap de terminationOrdered By: Deepa Hendrickson on 03-19-2022 Anion gap [Moles/Vol] 15.0 mmol/L 6.0-15.0 [facility] Serum or plasma calcium shania urement (mass/volume)Ordered By: Deepa Hendrickson on 03-19-2022 Calcium [Mass/Vol] 10.0 mg/dL 8.2-10.2 [facility] Serum or plasma chloride michael surement (moles/volume)Ordered By: Deepa Hendrickson on 03-19-2022 Chloride [Moles/Vol] 99 mmol/L 95-114 [facility] Serum or plasma glucose shania urement (mass/volume)Ordered By: Deepa Hendrickson on 03-19-2022 Glucose [Mass/Vol] 107 mg/dL 70-100 [facility] Comment on above: ADA recommended refe rence range Random Glucose Reference Range is dependent on time and content of last meal. Glucose of more than 200 mg/dL in a nonstressed, ambulatory subject supports the diagnosis of Diabetes Mellitus. Serum or plasma intact parat hyroid hormone measurement (mass/volume)Ordered By: Deepa Hendrickson on 03-19-2022 Parathyrin.intact [Mass/Vol] 25.4 pg/mL [facility] Serum or plasma potassium me asurement (moles/volume)Ordered By: Deepa Hendrickson on 03-19-2022 Potassium [Moles/Vol] 4.3 mmol/L 3.5-5.1 [facility] Serum or plasma sodium measu rement (moles/volume)Ordered By: Deepa Hendrickson on 03-19-2022 Sodium [Moles/Vol] 140 mmol/L 136-146 [facility] Serum or plasma total carbon dioxide measurement (moles/volume)Ordered By: Deepa Hendrickson on 03-19-2022 CO2 [Moles/Vol] 30.3 mmol/L 22.0-30.0 [facility] Serum or plasma urea nitroge n measurement (mass/volume)Ordered By: Deepa Hendrickson on 03-19-2022 Urea nitrogen [Mass/Vol] 35 mg/dL 9- [facility] Specific gravity Auto test s trip (U) [Rel density]Ordered By: Deepa Hendrickson on 03-19-2022 Specific gravity (U) [Rel density] 1.017 1.001-1.030 [facility] Squamous epithelial cells de tection in urine sediment by light microscopyOrdered By: Deepa Hendrickson on 03-19-2022 Epithelial cells.squamous LM Ql (Urine sed) 3-4 [HPF] 0-2 [facility] Urine bacteria detection by automated methodOrdered By: Deepa Hendrickson on 03-19-2022 Bacteria Auto Ql (U) None seen None Seen [facility] Urine clarity by refractomet ry automatedOrdered By: Deepa Hendrickson on 03-19-2022 Clarity Refractometry automated (U) Clear Clear [facility] Urine glucose measurement by automated test strip (mass/volume)Ordered By: Deepa Hendrickson on 03-19-2022 Glucose Auto test strip (U) [Mass/Vol] Normal mg/dL Normal [facility] Urine hemoglobin detection b y automated test stripOrdered By: Deepa Hendrickson on 03-19-2022 Hemoglobin Auto test strip Ql (U) Negative Negative [facility] Urine leukocyte esterase det ection by automated test stripOrdered By: Deepa Hendrickson on 03-19-2022 Leukocyte esterase Auto test strip Ql (U) 2+ Negative [facility] Urine protein/creatinine rat ioOrdered By: Deepa Hendrickson on 03-19-2022 Protein/Creatinine (U) [Ratio] 96 mg/g{Cre} 0-200 [facility] Urobilinogen Auto test strip (U) [Mass/Vol]Ordered By: Deepa Hendrickson on 03-19-2022 Urobilinogen (U) [Mass/Vol] Normal mg/dL Normal [facility] WBC Auto (Bld) [#/Vol]Ordere d By: Deepa Hendrickson on 03-19-2022 WBC (Bld) [#/Vol] 5.8 10*3/uL 3.8-11.6 [facility] pH Auto test strip (U)Ordere d By: Deepa Hendrickson on 03-19-2022 pH (U) 6.5 [pH] 5.0-9.0 [facility] CULTURE URINEon 03-18-2022 CULTURE URINE Culture Observations : NO GROWTH. Normal [facility] Comment on above: Performed By: #### F T4 #### [facility] [address] [place] [address] Dr. Ana Maria Sellers CULTURE URINEon 03-07-2022 CULTURE URINE Isolate 1 Escherichia coli >100,000 cfu/mL of ORGANISM 1 Escherichia coli ANTIBIOTIC M.I.C RX STATUS Ampicillin 4 S F Ampicillin/Sulbactam <=2 S F Piperacillin/Tazobact am <=4 S F Cefazolin <=4 S F Ceftazidime <=1 S F Ceftriaxone <=1 S F Ertapenem <=0.5 S F Imipenem <=0.25 S F Amikacin <=2 S F Gentamicin <=1 S F Tobramycin <=1 S F Ciprofloxacin >=4 R F Levofloxacin >=8 R F Nitrofurantoin <=16 S F Trimethoprim/Sulfamet hoxazole <=20 S F Normal [facility] Comment on above: Performed By: #### F T4 #### [facility] [address] [place] [address] Dr. Ana Maria Sellers UA RANDOM W/MICROSCOPICon BACTERIA SMALL Abnormal NONE SEEN [facility] Comment on above: Performed By: #### F T4 #### [facility] [address] [place] [address] Dr. Ana Maria Sellers Bilirubin Ql (U) Negative Normal NEGATIVE [facility] Comment on above: Performed By: #### F T4 #### [facility] [address] [place] [address] Dr. Ana Maria Sellers CAST NONE SEEN Normal NONE SEEN [facility] Comment on above: Performed By: #### F T4 #### [facility] [address] [place] [address] Dr. Ana Maria Sellers Clarity (U) CLEAR Normal CLEAR [facility] Comment on above: Performed By: #### F T4 #### [facility] [address] [place] [address] Dr. Ana Maria Sellers Color (U) LT. YELLOW Normal YELLOW [facility] Comment on above: Performed By: #### F T4 #### [facility] [address] [address] [address] Ana Maria Sellers Crystals LM Nom (Urine sed) NONE SEEN Normal NONE SEEN [facility] Comment on above: Performed By: #### F T4 #### [facility] [address] [address] [address] Ana Maria Sellers Epithelial cells LM Ql (Urine sed) FEW Abnormal NONE SEEN /RARE [facility] Comment on above: Performed By: #### F T4 #### [facility] [address] [place] [address] Dr. Ana Maria Sellers Glucose Ql (U) Negative Normal NEGATIVE [facility] Comment on above: Performed By: #### F T4 #### [facility] [address] [place] [address] Dr. Ana Maria Sellers Hemoglobin Ql (U) LARGE Abnormal NEGATIVE [facility] Comment on above: Performed By: #### F T4 #### [facility] [address] [place] [address] Dr. Ana Maria Sellers Ketones Ql (U) Negative Normal NEGATIVE [facility] Comment on above: Performed By: #### F T4 #### [facility] [address] [address] [address] Ana Maria Sellers LEUKOCYTES LARGE Abnormal NEGATIVE [facility] Comment on above: Performed By: #### F T4 #### [facility] [address] [place] [address] Dr. Ana Maria Sellers MUCOUS NONE SEEN Normal NONE SEEN [facility] Comment on above: Performed By: #### F T4 #### [facility] [address] [place] [address] Dr. Ana Maria Sellers Nitrite Ql (U) Negative Normal NEGATIVE [facility] Comment on above: Performed By: #### F T4 #### [facility] [address] [place] [address] Dr. Ana Maria Sellers pH (U) 6.0 [pH] Normal 5-9 [facility] Comment on above: Performed By: #### F T4 #### [facility] [address] [place] [address] Dr. Ana Maria Sellers RBC 10-20 Abnormal 0-2 [facility] Comment on above: Performed By: #### F T4 #### [facility] [address] [place] [address] Dr. Ana Maria Sellers SPEC GRAVITY 1.020 Normal 1.005-<=1.[address] [facility] Comment on above: Performed By: #### F T4 #### [facility] [address] [place] [address] Dr. Ana Maria Sellers UA PROTEIN >300 Abnormal NEGATIVE/ TRACE [facility] Comment on above: Performed By: #### F T4 #### [facility] [address] [place] [address] Dr. Ana Maria Sellers Urobilinogen Qn (U) 0.2 {Chavez'U}/dL Normal 0.2 - 1. 0 [facility] Comment on above: Performed By: #### F T4 #### [facility] [address] [place] [address] Dr. Ana Maria Sellers WBC (U) [#/Vol] /uL Abnormal NONE SEEN [facility] Comment on above: Performed By: #### F T4 #### [facility] [address] [place] [address] Dr. Ana Maria Sellers CBC AUTO DIFFon 02-20-2022 BASO # 0.0 103/ul Normal 0.0-0.1 [facility] Comment on above: Performed By: #### F T4 #### [facility] [address] [place] [address] Dr. Ana Maria Sellers Basophils/100 WBC (Bld) 0.2 % Normal 0.2-2.0 [facility] Comment on above: Performed By: #### F T4 #### [facility] [address] [place] [address] Dr. Ana Maria Sellers EO # 0.0 103/ul Normal 0.0-0.7 [facility] Comment on above: Performed By: #### F T4 #### [facility] [address] [place] [address] Dr. Ana Maria Sellers Eosinophils/100 WBC (Bld) 0.4 % Critically low 0.9-7.0 [facility] Comment on above: Performed By: #### F T4 #### [facility] [address] [place] [address] Dr. nAa Maria Sellers Erythrocyte distribution width (RBC) [Ratio] 12.9 % Normal 11.0-15.0 [facility] Comment on above: Performed By: #### F T4 #### [facility] [address] [place] [address] Dr. Ana Maria Sellers Hematocrit (Bld) [Volume fraction] 38.6 % Normal 36.0-48.0 [facility] Comment on above: Performed By: #### F T4 #### [facility] [address] [place] [address] Dr. Ana Maria Sellers Hemoglobin (Bld) [Mass/Vol] 12.8 g/dL Normal 12.0-16.0 [facility] Comment on above: Performed By: #### F T4 #### [facility] [address] [place] [address] Dr. Ana Maria Sellers IG # 0.04 10e3/ul Critically high 0.00-0.03 [facility] Comment on above: Performed By: #### F T4 #### [facility] [address] [place] [address] Dr. Ana Maria Sellers IG % 0.4 % Normal 0.0-0.5 [facility] Comment on above: Performed By: #### F T4 #### [facility] [address] [place] [address] Dr. Ana Maria Sellers LYMPH # 1.9 103/ul Normal 1.2-3.8 [facility] Comment on above: Performed By: #### F T4 #### [facility] [address] [place] [address] Dr. Ana Maria Sellers Lymphocytes/100 WBC (Bld) 17.8 % Critically low 20.5-60.0 [facility] Comment on above: Performed By: #### F T4 #### [facility] [address] [place] [address] Dr. Ana Maria Sellers MANUAL DIFF REQ NO Normal [facility] Comment on above: Performed By: #### F T4 #### [facility] [address] [place] [address] Dr. Ana Maria Sellers MCH (RBC) [Entitic mass] 30.0 pg Normal 26.7-34.0 [facility] Comment on above: Performed By: #### F T4 #### [facility] [address] [place] [address] Dr. Ana Maria Sellers MCHC (RBC) [Mass/Vol] 33.2 g/dL Normal 29.9-35.2 [facility] Comment on above: Performed By: #### F T4 #### [facility] [address] [place] [address] Dr. Ana Maria Sellers MCV (RBC) [Entitic vol] 90.6 fL Normal 81.0-99.0 [facility] Comment on above: Performed By: #### F T4 #### [facility] [address] [place] [address] Dr. Ana Maria Sellers MONO # 0.6 103/ul Normal 0.3-0.8 [facility] Comment on above: Performed By: #### F T4 #### [facility] [address] [place] [address] Dr. Ana Maria Sellers Monocytes/100 WBC (Bld) 5.4 % Normal 1.7-12.0 [facility] Comment on above: Performed By: #### F T4 #### [facility] [address] [place] [address] Dr. Ana Maria Sellers NEUT # 8.1 103/ul Critically high 1.4-6.[address] [facility] Comment on above: Performed By: #### F T4 #### [facility] [address] [place] [address] Dr. Ana Maria Sellers Neutrophils/100 WBC (Bld) 75.8 % Critically high 43.0-75.0 [facility] Comment on above: Performed By: #### F T4 #### [facility] [address] [place] [address] Dr. Ana Maria Sellers Platelet mean volume (Bld) [Entitic vol] 10.0 fL Normal 9.5-13.5 [facility] Comment on above: Performed By: #### F T4 #### [facility] [address] [place] [address] Dr. Ana Maria Sellers PLT 336 103/ul Normal 150-450 [facility] Comment on above: Performed By: #### F T4 #### [facility] [address] [place] [address] Dr. Ana Maria Sellers RBC 4.26 106/ul Normal 4.20-5.40 [facility] Comment on above: Performed By: #### F T4 #### [facility] [address] [place] [address] Dr. Ana Maria Sellers WBC 10.7 103/ul Normal 4.0-11.0 [facility] Comment on above: Performed By: #### F T4 #### [facility] [address] [place] [address] Dr. Ana Maria Sellers FREE T4on 02-20-2022 Free T4 [Mass/Vol] 1.06 ng/dL Normal 0.76-1.46 [facility] Comment on above: Performed By: #### F T4 #### [facility] [address] [place] [address] Dr. Ana Maria Sellers LIPASEon 02-20-2022 Lipase [Catalytic activity/Vol] 175.0 U/L Normal 73.0-393.0 [facility] Comment on above: Performed By: #### L IPA, TSH, CMP #### [facility] [address] [place] [address] Dr. Ana Maria Sellers PROF 14(COMP METB)on 022 Albumin [Mass/Vol] 3.6 g/dL Normal 3.4-5.0 [facility] Comment on above: Performed By: #### L IPA, TSH, CMP #### [facility] [address] [place] [address] Dr. Ana Maria Sellers Albumin/Globulin [Mass ratio] 1.0 {ratio} Normal [facility] Comment on above: Performed By: #### L IPA, TSH, CMP #### [facility] [address] [address] [address] Ana Maria Sellers ALP [Catalytic activity/Vol] 63 U/L Normal 46-116 [facility] Comment on above: Performed By: #### L IPA, TSH, CMP #### [facility] [address] [address] [address] Ana Maria Sellers ALT [Catalytic activity/Vol] 15 U/L Normal 14-59 [facility] Comment on above: Performed By: #### L IPA, TSH, CMP #### [facility] [address] [address] [address] Ana Maria Sellers Anion gap [Moles/Vol] 15.2 mmol/L Normal [facility] Comment on above: Performed By: #### L IPA, TSH, CMP #### [facility] [address] [address] [address] Ana Maria Sellers AST [Catalytic activity/Vol] 10 U/L Critically low 15-37 [facility] Comment on above: Performed By: #### L IPA, TSH, CMP #### [facility] [address] [address] [address] Ana Maria Sellers Bilirubin [Mass/Vol] 0.5 mg/dL Normal 0.2-1.0 [facility] Comment on above: Performed By: #### L IPA, TSH, CMP #### [facility] [address] [address] [address] Ana Maria Sellers Calcium [Mass/Vol] 9.5 mg/dL Normal 8.5-10.1 [facility] Comment on above: Performed By: #### L IPA, TSH, CMP #### [facility] [address] [address] [address] Ana Maria Sellers Chloride [Moles/Vol] 98 mmol/L Normal 98-107 [facility] Comment on above: Performed By: #### L IPA, TSH, CMP #### [facility] [address] [address] [address] Ana Maria Sellers CO2 [Moles/Vol] 25.4 mmol/L Normal 21.0-32.0 [facility] Comment on above: Performed By: #### L IPA, TSH, CMP #### [facility] [address] [address] [address] Ana Maria Sellers Creatinine [Mass/Vol] 3.15 mg/dL Critically high 0.55-1.02 [facility] Comment on above: Performed By: #### L IPA, TSH, CMP #### [facility] [address] [place] [address] Dr. Ana Maria Sellers EGFR-AF LATVIAN 17 mL/min/1.73m2 Critically low >=60 [facility] Comment on above: Performed By: #### L IPA, TSH, CMP #### [facility] [address] [place] [address] Dr. Ana Maria Sellers EGFR-NON AF LATVIAN 14 mL/min/1.73m2 Critically low >=60 [facility] Comment on above: Performed By: #### L IPA, TSH, CMP #### [facility] [address] [place] [address] Dr. Ana Maria Sellers Globulin (S) [Mass/Vol] 3.5 g/dL Normal [facility] Comment on above: Performed By: #### L IPA, TSH, CMP #### [facility] [address] [place] [address] Dr. Ana Maria Sellers Glucose [Mass/Vol] 132 mg/dL Critically high 74-106 [facility] Comment on above: Performed By: #### L IPA, TSH, CMP #### [facility] [address] [place] [address] Dr. Ana Maria Sellers Potassium [Moles/Vol] 4.6 mmol/L Normal 3.5-5.1 [facility] Comment on above: Performed By: #### L IPA, TSH, CMP #### [facility] [address] [place] [address] Dr. Ana Maria Sellers Protein [Mass/Vol] 7.1 g/dL Normal 6.4-8.2 [facility] Comment on above: Performed By: #### L IPA, TSH, CMP #### [facility] [address] [place] [address] Dr. Ana Maria Sellers Sodium [Moles/Vol] 134 mmol/L Critically low 136-145 [facility] Comment on above: Performed By: #### L IPA, TSH, CMP #### [facility] [address] [address] [address] Ana Maria Sellers Urea nitrogen [Mass/Vol] 57.0 mg/dL Critically high 7.0-18.0 [facility] Comment on above: Performed By: #### L IPA, TSH, CMP #### [facility] [address] [address] [address] Ana Maria Sellers Urea nitrogen/Creatinine [Mass ratio] 18.1 mg/mg Normal [facility] Comment on above: Performed By: #### L IPA, TSH, CMP #### [facility] [address] [place] [address] Dr. Ana Maria Sellers TSHon 02-20-2022 TSH 3.015 uIU/mL Normal 0.358-3.740 [facility] Comment on above: Performed By: #### L IPA, TSH, CMP #### [facility] [address] [address] [address] Ana Maria Sellers Covid-19 PCR (CVDTB)on 01-11 SARS-CoV-2 (COVID-19) RNA ARLEEN+probe Ql (Unsp spec) Detected Critically abnormal NOT DETECTED [facility] Comment on above: Result Comment: This test is not yet approved or cleared by the [place] FDA. When there are no FDA-approved or cleared tests available, and other criteria are met, FDA can make tests available under an emergency access mechanism called an Emergency Use Authorization (EUA). The EUA for this test is supported by the [place] of Health and Human Service's (HHS's) declaration that circumstances exist to justify the emergency use of in vitro diagnostics for the detection and/or diagnosis of the virus that causes COVID-19. This EUA will remain in effect (meaning this test can be used) for the duration of the COVID-19 declaration justifying emergency of IVDs, unless it is terminated or revoked by FDA (after which the test may no longer be used). Performed By: #### C VDTBH #### [facility] [address] [place] [address] Dr. Ana Mraia Sellers VIT D 1 25 DIHYDROXYon 12-13 Calcitriol(1,25 di-OH Vit D) 57.7 pg/mL Normal 19.9-79.3 [facility] Comment on above: Result Comment: Ef fective December 16, 2021 Calcitriol(1,25 di-OH Vit D) reference interval will be changing to: pg/mL . 0 - 6 months: 44.3 - 212.9 7 months - 1 year: 40.3 - 112.4 >1 year: 24.8 - 81.5 Performed By: #### F T4 #### [facility] [address] [place] [address] Dr. Ana Maria Sellers CBC AUTO DIFFon 12-11-2021 BASO # 0.0 103/ul Normal 0.0-0.1 [facility] Comment on above: Performed By: #### F T4 #### [facility] [address] [place] [address] Dr. Ana Maria Sellers Basophils/100 WBC (Bld) 0.8 % Normal 0.2-2.0 [facility] Comment on above: Performed By: #### F T4 #### [facility] [address] [place] [address] Dr. Ana Maria Sellers EO # 0.2 103/ul Normal 0.0-0.7 [facility] Comment on above: Performed By: #### F T4 #### [facility] [address] [place] [address] Dr. Ana Maria Sellers Eosinophils/100 WBC (Bld) 3.3 % Normal 0.9-7.0 [facility] Comment on above: Performed By: #### F T4 #### [facility] [address] [place] [address] Dr. Ana Maria Sellers Erythrocyte distribution width (RBC) [Ratio] 13.0 % Normal 11.0-15.0 [facility] Comment on above: Performed By: #### F T4 #### [facility] [address] [place] [address] Dr. Ana Maria Sellers Hematocrit (Bld) [Volume fraction] 37.8 % Normal 36.0-48.0 [facility] Comment on above: Performed By: #### F T4 #### [facility] [address] [place] [address] Dr. Ana Maria Sellers Hemoglobin (Bld) [Mass/Vol] 12.5 g/dL Normal 12.0-16.0 [facility] Comment on above: Performed By: #### F T4 #### [facility] [address] [place] [address] Dr. Ana Maria Sellers IG # 0.01 10e3/ul Normal 0.00-0.03 [facility] Comment on above: Performed By: #### F T4 #### [facility] [address] [place] [address] Dr. Ana Maria Sellers IG % 0.2 % Normal 0.0-0.5 [facility] Comment on above: Performed By: #### F T4 #### [facility] [address] [place] [address] Dr. Ana Maria Sellers LYMPH # 1.4 103/ul Normal 1.2-3.8 [facility] Comment on above: Performed By: #### F T4 #### [facility] [address] [place] [address] Dr. Ana Maria Sellers Lymphocytes/100 WBC (Bld) 27.1 % Normal 20.5-60.0 [facility] Comment on above: Performed By: #### F T4 #### [facility] [address] [place] [address] Dr. Ana Maria Sellers MANUAL DIFF REQ NO Normal [facility] Comment on above: Performed By: #### F T4 #### [facility] [address] [place] [address] Dr. Ana Maria Sellers MCH (RBC) [Entitic mass] 29.8 pg Normal 26.7-34.0 [facility] Comment on above: Performed By: #### F T4 #### [facility] [address] [place] [address] Dr. Ana Maria Sellers MCHC (RBC) [Mass/Vol] 33.1 g/dL Normal 29.9-35.2 [facility] Comment on above: Performed By: #### F T4 #### [facility] [address] [address] [address] Ana Maria Sellers MCV (RBC) [Entitic vol] 90.2 fL Normal 81.0-99.0 [facility] Comment on above: Performed By: #### F T4 #### [facility] [address] [address] [address] Ana Maria Sellers MONO # 0.4 103/ul Normal 0.3-0.8 [facility] Comment on above: Performed By: #### F T4 #### [facility] [address] [place] [address] Dr. Ana Maria Sellers Monocytes/100 WBC (Bld) 7.1 % Normal 1.7-12.0 [facility] Comment on above: Performed By: #### F T4 #### [facility] [address] [place] [address] Dr. Ana Maria Sellers NEUT # 3.1 103/ul Normal 1.4-6.5 [facility] Comment on above: Performed By: #### F T4 #### [facility] [address] [place] [address] Dr. Ana Maria Sellers Neutrophils/100 WBC (Bld) 61.5 % Normal 43.0-75.0 [facility] Comment on above: Performed By: #### F T4 #### [facility] [address] [place] [address] Dr. Ana Maria Sellers Platelet mean volume (Bld) [Entitic vol] 10.4 fL Normal 9.5-13.5 [facility] Comment on above: Performed By: #### F T4 #### [facility] [address] [place] [address] Dr. Ana Maria Sellers PLT 237 103/ul Normal 150-450 [facility] Comment on above: Performed By: #### F T4 #### [facility] [address] [place] [address] Dr. Ana Maria Sellers RBC 4.19 106/ul Critically low 4.20-5.[address] [facility] Comment on above: Performed By: #### F T4 #### [facility] [address] [place] [address] Dr. Ana Maria Sellers WBC 5.1 103/ul Normal 4.0-11.0 [facility] Comment on above: Performed By: #### F T4 #### [facility] [address] [place] [address] Dr. Ana Maria Sellers CULTURE URINEon 12-11-2021 CULTURE URINE Culture Observations : LIGHT GROWTH OF MIXED GENITAL JOCY. NO POTENTIAL PATHOGENS SEEN. Normal [facility] Comment on above: Performed By: #### F T4 #### [facility] [address] [place] [address] Dr. Ana Maria Sellers FREE T4on 12-11-2021 Free T4 [Mass/Vol] 1.24 ng/dL Normal 0.76-1.46 [facility] Comment on above: Performed By: #### F T4 #### [facility] [address] [place] [address] Dr. Ana Maria Sellers MICROALBUMIN, RAND URon 06- mALB <1.3 Normal <=30.0 [facility] Comment on above: Performed By: #### F T4 #### [facility] [address] [place] [address] Dr. Ana Maria Sellers PROF 14(COMP METB)on 022 Albumin [Mass/Vol] 3.7 g/dL Normal 3.4-5.0 [facility] Comment on above: Performed By: #### C MP, TSH #### [facility] [address] [place] [address] Dr. Ana Maria Sellers Albumin/Globulin [Mass ratio] 1.1 {ratio} Normal [facility] Comment on above: Performed By: #### C MP, TSH #### [facility] [address] [place] [address] Dr. Ana Maria Sellers ALP [Catalytic activity/Vol] 82 U/L Normal 46-116 [facility] Comment on above: Performed By: #### C BENNY, TSH #### [facility] [address] [place] [address] Dr. Ana Maria Sellers ALT [Catalytic activity/Vol] 15 U/L Normal 14-59 [facility] Comment on above: Performed By: #### C MP, TSH #### [facility] [address] [address] [address] Ana Maria Sellers Anion gap [Moles/Vol] 13.4 mmol/L Normal [facility] Comment on above: Performed By: #### C MP, TSH #### [facility] [address] [address] [address] Ana Maria Sellers AST [Catalytic activity/Vol] 14 U/L Critically low 15-37 [facility] Comment on above: Performed By: #### C BENNY, TSH #### [facility] [address] [place] [address] Dr. Ana Maria Sellers Bilirubin [Mass/Vol] 0.6 mg/dL Normal 0.2-1.0 [facility] Comment on above: Performed By: #### C BENNY, TSH #### [facility] [address] [address] [address] Ana Maria Sellers Calcium [Mass/Vol] 9.0 mg/dL Normal 8.5-10.1 [facility] Comment on above: Performed By: #### C BENNY, TSH #### [facility] [address] [place] [address] Dr. Ana Maria Sellers Chloride [Moles/Vol] 104 mmol/L Normal 98-107 [facility] Comment on above: Performed By: #### C BENNY, TSH #### [facility] [address] [address] [address] Ana Maria Sellers CO2 [Moles/Vol] 27.7 mmol/L Normal 21.0-32.0 [facility] Comment on above: Performed By: #### C MP, TSH #### [facility] [address] [place] [address] Dr. Ana Maria Sellers Creatinine [Mass/Vol] 1.99 mg/dL Critically high 0.55-1.02 [facility] Comment on above: Performed By: #### C BENNY, TSH #### [facility] [address] [place], [place] [id number] Dr. Ana Maria Sellers EGFR-AF LATVIAN 29 mL/min/1.73m2 Critically low >=60 [facility] Comment on above: Performed By: #### C MP, TSH #### [facility] [address] [address] [address] Ana Maria Sellers EGFR-NON AF LATVIAN 24 mL/min/1.73m2 Critically low >=60 [facility] Comment on above: Performed By: #### C MP, TSH #### [facility] [address] [address] [address] Ana Maria Sellers Globulin (S) [Mass/Vol] 3.3 g/dL Normal [facility] Comment on above: Performed By: #### C MP, TSH #### [facility] [address] [place] [address] Dr. Ana Maria Sellers Glucose [Mass/Vol] 116 mg/dL Critically high 74-106 [facility] Comment on above: Performed By: #### C MP, TSH #### [facility] [address] [place] [address] Dr. Ana Maria Sellers Potassium [Moles/Vol] 4.0 mmol/L Normal 3.5-5.1 [facility] Comment on above: Performed By: #### C MP, TSH #### [facility] [address] [place] [address] Dr. Ana Maria Sellers Protein [Mass/Vol] 7.0 g/dL Normal 6.4-8.2 [facility] Comment on above: Performed By: #### C MP, TSH #### [facility] [address] [place] [address] Dr. Ana Maria Sellers Sodium [Moles/Vol] 141 mmol/L Normal 136-145 [facility] Comment on above: Performed By: #### C MP, TSH #### [facility] [address] [place] [address] Dr. Ana Maria Sellers Urea nitrogen [Mass/Vol] 32.0 mg/dL Critically high 7.0-18.0 [facility] Comment on above: Performed By: #### C MP, TSH #### [facility] [address] [place] [address] Dr. Ana Maria Sellers Urea nitrogen/Creatinine [Mass ratio] 16.8 mg/mg Normal [facility] Comment on above: Performed By: #### C MP, TSH #### [facility] [address] [place] [address] Dr. Ana Maria Sellers TSHon 12-11-2021 TSH 1.281 uIU/mL Normal 0.358-3.740 [facility] Comment on above: Performed By: #### C MP, TSH #### [facility] [address] [place] [address] Dr. Ana Maria Sellers TSH RANGE SEE BELOW Normal [facility] Comment on above: Result Comment: <0.3 4 UIU/ml HYPERTHYROID 0.34-5.60 UIU/ml EUTHYROID >5.60 UIU/ml HYPOTHYROID Performed By: #### C MP, TSH #### [facility] [address] [place] [address] Dr. Ana Maria Sellers UA RANDOM W/MICROSCOPICon BACTERIA NONE SEEN Normal NONE SEEN [facility] Comment on above: Performed By: #### U AMIC #### [facility] [address] [place] [address] Dr. Ana Maria Sellers Bilirubin Ql (U) Negative Normal NEGATIVE [facility] Comment on above: Performed By: #### U AMIC #### [facility] [address] [place] [address] Dr. Ana Maria Sellers CAST NONE SEEN Normal NONE SEEN [facility] Comment on above: Performed By: #### U AMIC #### [facility] [address] [place] [address] Dr. Ana Maria Sellers Clarity (U) CLEAR Normal CLEAR [facility] Comment on above: Performed By: #### U AMIC #### [facility] [address] [place] [address] Dr. Ana Maria Sellers Color (U) LT. YELLOW Normal YELLOW [facility] Comment on above: Performed By: #### U AMIC #### [facility] [address] [place] [address] Dr. Ana Maria Sellers Crystals LM Nom (Urine sed) NONE SEEN Normal NONE SEEN [facility] Comment on above: Performed By: #### U AMIC #### [facility] [address] [address] [address] Ana Maria Sellers Epithelial cells LM Ql (Urine sed) RARE Normal NONE SEEN /RARE [facility] Comment on above: Performed By: #### U AMIC #### [facility] [address] [address] [address] Ana Maria Sellers Glucose Ql (U) Negative Normal NEGATIVE [facility] Comment on above: Performed By: #### U AMIC #### [facility] [address] [address] [address] Ana Maria Sellers Hemoglobin Ql (U) Negative Normal NEGATIVE [facility] Comment on above: Performed By: #### U AMIC #### [facility] [address] [place] [address] Dr. Ana Maria Sellers Ketones Ql (U) Negative Normal NEGATIVE [facility] Comment on above: Performed By: #### U AMIC #### [facility] [address] [address] [address] Ana Maria Sellers LEUKOCYTES Negative Normal NEGATIVE [facility] Comment on above: Performed By: #### U AMIC #### [facility] [address] [address] [address] Ana Maria Sellers MUCOUS NONE SEEN Normal NONE SEEN [facility] Comment on above: Performed By: #### U AMIC #### [facility] [address] [address] [address] Ana Maria Sellers Nitrite Ql (U) Negative Normal NEGATIVE [facility] Comment on above: Performed By: #### U AMIC #### [facility] [address] [address] [address] Ana Maria Sellers pH (U) 5.5 [pH] Normal 5-9 [facility] Comment on above: Performed By: #### U AMIC #### [facility] [address] [address] [address] Ana Maria Sellers RBC 0-2 Normal 0-2 [facility] Comment on above: Performed By: #### U AMIC #### [facility] [address] [place] [address] Dr. Ana Maria Sellers SPEC GRAVITY 1.010 Normal 1.005-<=1.[address] [facility] Comment on above: Performed By: #### U AMIC #### [facility] [address] [place] [address] Dr. Ana Maria Sellers UA PROTEIN Negative Normal NEGATIVE/ TRACE [facility] Comment on above: Performed By: #### U AMIC #### [facility] [address] [address] [address] Ana Maria Sellers Urobilinogen Qn (U) 0.2 {Chavez'U}/dL Normal 0.2 - 1. 0 [facility] Comment on above: Performed By: #### U AMIC #### [facility] [address] [place] [address] Dr. Ana Maria Sellers WBC 0-2 Abnormal NONE SEEN [facility] Comment on above: Performed By: #### U AMIC #### [facility] [address] [place] [address] Dr. Ana Maria Sellers CBC AUTO DIFFon 09-16-2021 BASO # 0.0 103/ul Normal 0.0-0.1 [facility] Comment on above: Performed By: #### F T4 #### [facility] [address] [place] [address] Dr. Ana Maria Sellers Basophils/100 WBC (Bld) 0.6 % Normal 0.2-2.0 [facility] Comment on above: Performed By: #### F T4 #### [facility] [address] [place] [address] Dr. Ana Maria Sellers EO # 0.2 103/ul Normal 0.0-0.7 [facility] Comment on above: Performed By: #### F T4 #### [facility] [address] [place] [address] Dr. Ana Maria Sellers Eosinophils/100 WBC (Bld) 4.6 % Normal 0.9-7.0 [facility] Comment on above: Performed By: #### F T4 #### [facility] [address] [place] [address] Dr. Ana Maria Sellers Erythrocyte distribution width (RBC) [Ratio] 12.8 % Normal 11.0-15.0 [facility] Comment on above: Performed By: #### F T4 #### [facility] [address] [place] [address] Dr. Ana Maria Sellers Hematocrit (Bld) [Volume fraction] 38.5 % Normal 36.0-48.0 [facility] Comment on above: Performed By: #### F T4 #### [facility] [address] [place] [address] Dr. Ana Maria Sellers Hemoglobin (Bld) [Mass/Vol] 12.7 g/dL Normal 12.0-16.0 [facility] Comment on above: Performed By: #### F T4 #### [facility] [address] [place] [address] Dr. Ana Maria Sellers IG # 0.02 10e3/ul Normal 0.00-0.03 [facility] Comment on above: Performed By: #### F T4 #### [facility] [address] [place] [address] Dr. Ana Maria Sellers IG % 0.4 % Normal 0.0-0.5 [facility] Comment on above: Performed By: #### F T4 #### [facility] [address] [place] [address] Dr. Ana Maria Sellers LYMPH # 1.8 103/ul Normal 1.2-3.8 [facility] Comment on above: Performed By: #### F T4 #### [facility] [address] [place] [address] Dr. Ana Maria Sellers Lymphocytes/100 WBC (Bld) 35.0 % Normal 20.5-60.0 [facility] Comment on above: Performed By: #### F T4 #### [facility] [address] [place] [address] Dr. Ana Maria Sellers MANUAL DIFF REQ NO Normal [facility] Comment on above: Performed By: #### F T4 #### [facility] [address] [place] [address] Dr. Ana Maria Sellers MCH (RBC) [Entitic mass] 29.7 pg Normal 26.7-34.0 [facility] Comment on above: Performed By: #### F T4 #### [facility] [address] [place] [address] Dr. Ana Maria Sellers MCHC (RBC) [Mass/Vol] 33.0 g/dL Normal 29.9-35.2 [facility] Comment on above: Performed By: #### F T4 #### [facility] [address] [place] [address] Dr. Ana Maria Sellers MCV (RBC) [Entitic vol] 90.2 fL Normal 81.0-99.0 [facility] Comment on above: Performed By: #### F T4 #### [facility] [address] [place] [address] Dr. Ana Maria Sellers MONO # 0.4 103/ul Normal 0.3-0.8 [facility] Comment on above: Performed By: #### F T4 #### [facility] [address] [place] [address] Dr. Ana Maria Sellers Monocytes/100 WBC (Bld) 8.0 % Normal 1.7-12.0 [facility] Comment on above: Performed By: #### F T4 #### [facility] [address] [place] [address] Dr. Ana Maria Sellers NEUT # 2.7 103/ul Normal 1.4-6.5 [facility] Comment on above: Performed By: #### F T4 #### [facility] [address] [place] [address] Dr. Ana Maria Sellers Neutrophils/100 WBC (Bld) 51.4 % Normal 43.0-75.0 [facility] Comment on above: Performed By: #### F T4 #### [facility] [address] [place] [address] Dr. Ana Maria Sellers Platelet mean volume (Bld) [Entitic vol] 10.6 fL Normal 9.5-13.5 [facility] Comment on above: Performed By: #### F T4 #### [facility] [address] [address] [address] Ana Maria Sellers PLT 216 103/ul Normal 150-450 [facility] Comment on above: Performed By: #### F T4 #### [facility] [address] [address] [address] Ana Maria Sellers RBC 4.27 106/ul Normal 4.20-5.40 [facility] Comment on above: Performed By: #### F T4 #### [facility] [address] [address] [address] Ana Maria Sellers WBC 5.2 103/ul Normal 4.0-11.0 [facility] Comment on above: Performed By: #### F T4 #### [facility] [address] [address] [address] Ana Maria Sellers LIPID PROFILEon 09-16-2021 CHOL-HDL RATIO NORM SEE BELOW Normal [facility] Comment on above: Result Comment: 3.3 - 4.4 LOW RISK 4.4 - 7.1 AVERAGE RISK 7.1 - 11.0 MODERATE RISK >11.0 HIGH RISK Performed By: #### L IPID, CMP #### [facility] [address] [place] [address] Dr. Ana Maria Sellers Cholesterol [Mass/Vol] 267 mg/dL Critically high <=200 [facility] Comment on above: Performed By: #### L IPID, CMP #### [facility] [address] [address] [address] Ana Maria Sellers Cholesterol in HDL [Mass/Vol] 46 mg/dL Normal [facility] Comment on above: Performed By: #### L IPID, CMP #### [facility] [address] [address] [address] Ana Maria Sellers Cholesterol in LDL [Mass/Vol] 192.0 mg/dL Normal [facility] Comment on above: Performed By: #### L IPID, CMP #### [facility] [address] [address] [address] Ana Maria Sellers Cholesterol.total/Yaneli sterol in HDL [Mass ratio] 5.8 {ratio} Normal [facility] Comment on above: Performed By: #### L IPID, CMP #### [facility] [address] [address] [address] Ana Maria Sellers HDL NORMAL > or = 60 mg/dl - LO W CARDIOVASCULAR RISK <40 mg/dl - HIGH CARDIOVASCULAR RISK Normal [facility] Comment on above: Performed By: #### L IPID, CMP #### [facility] [address] [address] [address] Ana Maria Sellers LDL CALC NORMAL SEE BELOW Normal [facility] Comment on above: Result Comment: <100 mg/dl OPTIMAL 100 - 129 mg/dl NEAR OR ABOVE OPTIMAL 130 - 159 mg/dl BORDERLINE HIGH 160 - 189 mg/dl HIGH >190 mg/dl VERY HIGH Performed By: #### L IPID, CMP #### [facility] [address] [address] [address] Ana Maria Sellers Triglyceride [Mass/Vol] 145 mg/dL Normal <=150 [facility] Comment on above: Performed By: #### L IPID, CMP #### [facility] [address] [address] [address] Ana Maria Sellers VLDL CALC 29.0 mg/dL Normal [facility] Comment on above: Performed By: #### L IPID, CMP #### [facility] [address] [address] [address] Ana Maria Sellers PROF 14(COMP METB)on 022 Albumin [Mass/Vol] 3.7 g/dL Normal 3.5-5.0 [facility] Comment on above: Performed By: #### L IPID, CMP #### [facility] [address] [address] [address] Ana Maria Sellers Albumin/Globulin [Mass ratio] 1.1 {ratio} Normal [facility] Comment on above: Performed By: #### L IPID, CMP #### [facility] [address] [address] [address] Ana Maria Sellers ALP [Catalytic activity/Vol] 95 U/L Normal 38-126 [facility] Comment on above: Performed By: #### L IPID, CMP #### [facility] [address] [address] [address] Ana Maria Sellers ALT [Catalytic activity/Vol] 14 U/L Normal 9-52 [facility] Comment on above: Performed By: #### L IPID, CMP #### [facility] [address] [address] [address] Ana Maria Sellers Anion gap [Moles/Vol] 10.8 mmol/L Normal [facility] Comment on above: Performed By: #### L IPID, CMP #### [facility] [address] [address] [address] Ana Maria Sellers AST [Catalytic activity/Vol] 15 U/L Normal 14-36 [facility] Comment on above: Performed By: #### L IPID, CMP #### [facility] [address] [place] [address] Dr. Ana Maria Sellers Bilirubin [Mass/Vol] 0.6 mg/dL Normal 0.2-1.3 [facility] Comment on above: Performed By: #### L IPID, CMP #### [facility] [address] [address] [address] Ana Maria Sellers Calcium [Mass/Vol] 9.2 mg/dL Normal 8.4-10.2 [facility] Comment on above: Performed By: #### L IPID, CMP #### [facility] [address] [address] [address] Ana Maria Sellers Chloride [Moles/Vol] 103 mmol/L Normal 98-107 [facility] Comment on above: Performed By: #### L IPID, CMP #### [facility] [address] [address] [address] Ana Maria Sellers CO2 [Moles/Vol] 29.2 mmol/L Normal 22.0-30.0 [facility] Comment on above: Performed By: #### L IPID, CMP #### [facility] [address] [address] [address] Ana Maria Sellers Creatinine [Mass/Vol] 1.71 mg/dL Critically high 0.52-1.04 [facility] Comment on above: Performed By: #### L IPID, CMP #### [facility] [address] [address] [address] Ana Maria Sellers EGFR-AF LATVIAN 35 mL/min/1.73m2 Critically low >=60 [facility] Comment on above: Performed By: #### L IPID, CMP #### [facility] [address] [address] [address] Ana Maria Sellers EGFR-NON AF LATVIAN 29 mL/min/1.73m2 Critically low >=60 [facility] Comment on above: Performed By: #### L IPID, CMP #### [facility] [address] [address] [address] Ana Maria Sellers Globulin (S) [Mass/Vol] 3.5 g/dL Normal [facility] Comment on above: Performed By: #### L IPID, CMP #### [facility] [address] [address] [address] Ana Maria Sellers Glucose [Mass/Vol] 100 mg/dL Normal 74-106 [facility] Comment on above: Performed By: #### L IPID, CMP #### [facility] [address] [address] [address] Ana Maria Sellers Potassium [Moles/Vol] 4.0 mmol/L Normal 3.4-5.0 [facility] Comment on above: Performed By: #### L IPID, CMP #### [facility] [address] [address] [address] Ana Maria Sellers Protein [Mass/Vol] 7.2 g/dL Normal 6.1-8.2 [facility] Comment on above: Performed By: #### L IPID, CMP #### [facility] [address] [address] [address] Ana Maria Sellers Sodium [Moles/Vol] 139 mmol/L Normal 137-145 [facility] Comment on above: Performed By: #### L IPID, CMP #### [facility] [address] [address] [address] Ana Maria Sellers Urea nitrogen [Mass/Vol] 37.0 mg/dL Critically high 7.0-17.0 [facility] Comment on above: Performed By: #### L IPID, CMP #### [facility] [address] [place], [place] [address] Dr. Ana Maria Sellers Urea nitrogen/Creatinine [Mass ratio] 21.6 mg/mg Normal [facility] Comment on above: Performed By: #### L IPID, CMP #### [facility] [address] [place], [place] [address] Dr. Ana Maria Sellers Comp Metabolic Pr/rfx MGon 0 10-05-2018 (cont.) Normal [facility] Comment on above: Result Comment: Aver age GFR for 70 or more years old: 75 mL/min/1.73sq m Chronic Kidney Disease: <60 mL/min/1.73sq m Kidney failure: <15 mL/min/1.73sq m eGFR calculated using average adult body mass. Additional eGFR calculator available at: http://www.[employer]/multiple_crcl_2011.htm Performed By: #### C MPX #### [facility] [address] [place] [address] Public Health Training Assistant: Rick Busby MD Albumin mass conc 3.7 g/dL Normal 3.5-5.2 [facility] Comment on above: Performed By: #### C MPX #### [facility] [address] [place], [place] [id number] Public Health Training Assistant: Rick Busby MD Albumin/Globulin mass ratio 1.5 {ratio} Normal 1.0-2.5 [facility] Comment on above: Performed By: #### C MPX #### [facility] [address] [place] [address] Public Health Training Assistant: Rick Busby MD Alkaline Phos 65 U/L Normal 35-104 [facility] Comment on above: Performed By: #### C MPX #### [facility] [address] [place] [address] Public Health Training Assistant: Rick Busby MD ALT enzyme act/vol 11 U/L Normal 5-33 [facility] Comment on above: Performed By: #### C MPX #### [facility] [address] [place], [place] [id number] Public Health Training Assistant: Rick Busby MD Anion gap molar conc 12 mmol/L Normal 9-17 [facility] Comment on above: Performed By: #### C MPX #### [facility] [address] [place], [place] [id number] Public Health Training Assistant: Rick Busby MD AST enzyme act/vol 15 U/L Normal <32 [facility] Comment on above: Performed By: #### C MPX #### [facility] [address] [place], [place] [id number] Public Health Training Assistant: Rick Busby MD Bilirubin Ql (U) 0.39 mg/dL Normal 0.3-1.2 [facility] Comment on above: Performed By: #### C MPX #### [facility] [address] [place], [place] [id number] Public Health Training Assistant: Rick Busby MD BUN/CRE Ratio 19 Normal 9-20 [facility] Comment on above: Performed By: #### C MPX #### [facility] [address] [place], [place] [id number] Public Health Training Assistant: Rick Busby MD Calcium mass conc 9.3 mg/dL Normal 8.6-10.4 [facility] Comment on above: Performed By: #### C MPX #### [facility] [address] [place], [place] [id number] Public Health Training Assistant: Rick Busby MD Chloride molar conc 104 mmol/L Normal 98-107 [facility] Comment on above: Performed By: #### C MPX #### [facility] [address] [place], [place] [phone] Public Health Training Assistant: Rick Busby MD CO2 molar conc 28 mmol/L Normal 20-31 [facility] Comment on above: Performed By: #### C MPX #### [facility] [address] [place], [place] [address] Public Health Training Assistant: Rick Busby MD Creatinine mass conc 1.28 mg/dL High 0.50-0.90 [facility] Comment on above: Performed By: #### C MPX #### [facility] [address] [place], [place] [phone] Public Health Training Assistant: Rick Busby MD GFR, Amer 49 mL/min Low >60 [facility] Comment on above: Performed By: #### C MPX #### [facility] [address] [place], [place] [id number] Public Health Training Assistant: Rick Busby MD GFR,non Amer 40 mL/min Low >60 [facility] Comment on above: Performed By: #### C MPX #### [facility] [address] [place], [place] [phone] Public Health Training Assistant: Rick Busby MD Glucose mass conc 111 mg/dL High 70-99 [facility] Comment on above: Performed By: #### C MPX #### [facility] [address] [place], [place] [phone] Public Health Training Assistant: Rick Busby MD Potassium molar conc 4.3 mmol/L Normal 3.7-5.3 [facility] Comment on above: Performed By: #### C MPX #### [facility] [address] [place], [place] [id number] Public Health Training Assistant: Rick Busby MD Protein mass conc 6.2 g/dL Low 6.4-8.3 [facility] Comment on above: Performed By: #### C MPX #### [facility] [address] [place], [place] 7[address]83 Public Health Training Assistant: Rick Busby MD Sodium molar conc 144 mmol/L Normal 135-144 [facility] Comment on above: Performed By: #### C MPX #### [facility] [address] [place] [id number] Public Health Training Assistant: Rick Busby MD Staging: Normal [facility] Comment on above: Result Comment: Stag e 1: Some kidney damage normal GFR Stage 2: Mild kidney damage GFR 60-89 Stage 3: Moderate kidney damage GFR 30-59 Stage 4: Severe kidney damage GFR 15-29 Stage 5: Severe kidney damage GFR <15 ESRD - chronic treatment by dialysis or transplant Performed By: #### C MPX #### [facility] [address] [place] [id number] Public Health Training Assistant: Rick Busby MD Urea nitrogen mass conc 24 mg/dL High 8-23 M [facility] Comment on above: Performed By: #### C MPX #### [facility] [address] [place], [facility] Public Health Training Assistant: Rick Busby MD CBC with Diffon 10-04-2018 Abs. Basophil 0.03 k/uL Normal 0.00-0.20 [facility] Comment on above: Performed By: #### C MPX, TROPI, MG, CDP #### [facility] [address] [place], [facility] Public Health Training Assistant: Rick Busby MD Abs.Imm.Granulocyte <0.03 Normal 0.00-0.30 [facility] Comment on above: Performed By: #### C MPX, TROPI, MG, CDP #### [facility] [address] [place], [facility] Public Health Training Assistant: Rick Busby MD Abs.Neutrophil (Seg) 3.30 k/uL Normal 1.50-8.10 [facility] Comment on above: Performed By: #### C MPX, TROPI, MG, CDP #### [facility] [address] [place], [facility] Public Health Training Assistant: Rick Busby MD Basophils/100 WBC (Bld) 1 % Normal 0-2 M [facility] Comment on above: Performed By: #### C MPX, TROPI, MG, CDP #### [facility] [address] [place], [place] [id number] Public Health Training Assistant: Rick Busby MD Eosinophils #/vol (Bld) 0.17 10*3/uL Normal 0.00-0.44 [facility] Comment on above: Performed By: #### C MPX, TROPI, MG, CDP #### [facility] [address] [place], [place] 1010083 Public Health Training Assistant: Rick Busby MD Eosinophils/100 WBC (Bld) 3 % Normal 1-4 [facility] Comment on above: Performed By: #### C MPX, TROPI, MG, CDP #### [address] [place], [facility] Public Health Training Assistant: Rick Busby MD Erythrocyte distribution width Ratio (RBC) 12.8 % Normal 11.8-14.4 [facility] Comment on above: Performed By: #### C MPX, TROPI, MG, CDP #### [address] [place], [place] 9798383 Public Health Training Assistant: Rick Busby MD Hematocrit Volume Fraction (Bld) 37.8 % Normal 36.3-47.1 [facility] Comment on above: Performed By: #### C MPX, TROPI, MG, CDP #### [address] [place], [place] 0120583 Public Health Training Assistant: Rick Busby MD Hemoglobin mass conc (Bld) 12.4 g/dL Normal 11.9-15.1 [facility] Comment on above: Performed By: #### C MPX, TROPI, MG, CDP #### [facility] [address] [place], [place] [address]72[address]83 Public Health Training Assistant: Rick Busby MD Immature granulocytes #/vol (Bld) 0 % Normal 0 [facility] Comment on above: Performed By: #### C MPX, TROPI, MG, CDP #### [facility] [address] [place] [id number] Public Health Training Assistant: Rick Busby MD Lymphocytes #/vol (Bld) 1.67 10*3/uL Normal 1.10-3.70 [facility] Comment on above: Performed By: #### C MPX, TROPI, MG, CDP #### [facility] [address] [place] [address] Public Health Training Assistant: Rick Busby MD Lymphocytes/100 WBC (Bld) 30 % Normal 24-43 [facility] Comment on above: Performed By: #### C MPX, TROPI, MG, CDP #### [address] [place], [place] [address] Public Health Training Assistant: Rick Busby MD MCH Entitic mass (RBC) 30.2 pg Normal 25.2-33.5 [facility] Comment on above: Performed By: #### C MPX, TROPI, MG, CDP #### [address] [place] [id number] Public Health Training Assistant: Rick Busby MD MCHC mass conc (RBC) 32.8 g/dL Normal 28.4-34.8 [facility] Comment on above: Performed By: #### C MPX, TROPI, MG, CDP #### [facility] [address] [place] [address] Dr. [place], [facility] Public Health Training Assistant: Rick Busby MD MCV Entitic volume (RBC) 92.0 fL Normal 82.6-102.9 [facility] Comment on above: Performed By: #### C MPX, TROPI, MG, CDP #### [facility] [address] [place] [address] Public Health Training Assistant: Rick Busby MD Monocytes #/vol (Bld) 0.46 10*3/uL Normal 0.10-1.20 [facility] Comment on above: Performed By: #### C MPX, TROPI, MG, CDP #### [facility] [address] [place], [place] [address]86[address]83 Public Health Training Assistant: Rick Busby MD Monocytes/100 WBC (Bld) 8 % Normal 3-12 [facility] Comment on above: Performed By: #### C MPX, TROPI, MG, CDP #### [facility] [address] [place] [address] Public Health Training Assistant: Rick Busby MD Neutrophil (Seg) 58 % Normal 36-65 [facility] Comment on above: Performed By: #### C MPX, TROPI, MG, CDP #### [address] [place], [place] 858[address]83 Public Health Training Assistant: Rick Busby MD NRBC Automated 0.0 per 100 WBC Normal 0.0 [facility] Comment on above: Performed By: #### C MPX, TROPI, MG, CDP #### [address] [place], [place] 2056483 Public Health Training Assistant: Rick Busby MD Platelet mean volume Entitic volume (Bld) 11.2 fL Normal 8.1-13.5 [facility] Comment on above: Performed By: #### C MPX, TROPI, MG, CDP #### [address] [place] [address] Public Health Training Assistant: Rick Busby MD Platelets #/vol (Bld) 174 10*3/uL Normal 138-453 [facility] Comment on above: Performed By: #### C MPX, TROPI, MG, CDP #### [address] [place], [place] 7653283 Public Health Training Assistant: Rick Busby MD RBC #/vol (Bld) 4.11 10*6/uL Normal 3.95-5.11 [facility] Comment on above: Performed By: #### C MPX, TROPI, MG, CDP #### [facility] [address] [place], [place] 3582183 Public Health Training Assistant: Rick Busby MD WBC #/vol (Bld) 5.6 10*3/uL Normal 3.5-11.3 [facility] Comment on above: Performed By: #### C MPX, TROPI, MG, CDP #### [address] [place], [place] 6178883 Public Health Training Assistant: Rick Busby MD Auto Diff Performed NOT REPORTED Normal [facility] Comment on above: Performed By: #### C MPX, TROPI, MG, CDP #### [address] [place], [place] [phone] Public Health Training Assistant: Rick Busby MD Platelets #/vol (Bld) NOT REPORTED Normal [facility] Comment on above: Performed By: #### C MPX, TROPI, MG, CDP #### [address] [place], [place] 585[address]83 Public Health Training Assistant: Rick Busby MD RBC morphology finding Nom (Bld) NOT REPORTED Normal [facility] Comment on above: Performed By: #### C MPX, TROPI, MG, CDP #### [address] [place] [address] Public Health Training Assistant: Rick Busby MD WBC Morphology NOT REPORTED Normal [facility] Comment on above: Performed By: #### C MPX, TROPI, MG, CDP #### [address] [place] [id number] Public Health Training Assistant: Rick Busby MD CT HEAD WO CONTRASTon 2018 CT HEAD WO CONTRAST EXAMINATION: CT OF THE HEAD WITHOUT CONTRAST 10/04/2018 9:03 pm TECHNIQUE: CT of the head was performed without the administration of intravenous contrast. Dose modulation, iterative reconstruction, and/or weight based adjustment of the mA/kV was utilized to reduce the radiation dose to as low as reasonably achievable. COMPARISON: None. HISTORY: ORDERING SYSTEM PROVIDED HISTORY: Syncope TECHNOLOGIST PROVIDED HISTORY: FINDINGS: BRAIN/VENTRICLES: Ventricles sulci are prominent. Ventricles are midline. Multifocal low-density is noted bilaterally in the periventricular and subcortical white matter. 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 There is a probable old lacunar infarct in the anterior aspect of the left lentiform nucleus. Anterior limb internal capsule low densities are noted bilaterally. Ossification along the inner table is noted in the left anterior frontal region, image 31. This may represent simple asymmetric ossification, however underlying meningioma would be difficult to exclude. Multiple vascular calcifications are noted. ORBITS: The visualized portion of the orbits demonstrate no acute abnormality. SINUSES: The visualized paranasal sinuses and mastoid air cells demonstrate no acute abnormality. SOFT TISSUES/SKULL: No acute abnormality of the visualized skull or soft tissues. IMPRESSION: Multiple old infarcts Multifocal small-vessel ischemic change No acute abnormality otherwise. Interpreted by: Noe Regalado MD Signed by: Noe Regalado MD 10/04/18 Final result Normal [facility] Comp Metabolic Pr/rfx MGon 0 10-04-2018 Potassium molar conc 3.3 mmol/L Low 3.7-5.3 [facility] Comment on above: Performed By: #### C MPX, TROPI, MG, CDP #### [facility] [address] [place] [address] Public Health Training Assistant: Rick Busby MD (cont.) Normal [facility] Comment on above: Result Comment: Aver age GFR for 70 or more years old: 75 mL/min/1.73sq m Chronic Kidney Disease: <60 mL/min/1.73sq m Kidney failure: <15 mL/min/1.73sq m eGFR calculated using average adult body mass. Additional eGFR calculator available at: http://www.[employer]/multiple_crcl_2012.htm Performed By: #### C MPX, TROPI, MG, CDP #### [facility] [address] [place] [address] Public Health Training Assistant: Rick Busby MD Albumin mass conc 4.0 g/dL Normal 3.5-5.2 [facility] Comment on above: Performed By: #### C MPX, TROPI, MG, CDP #### [facility] [address] [place], [place] [phone] Public Health Training Assistant: Rick Busby MD Albumin/Globulin mass ratio 1.5 {ratio} Normal 1.0-2.5 [facility] Comment on above: Performed By: #### C MPX, TROPI, MG, CDP #### [facility] [address] [place], [place] 7478483 Public Health Training Assistant: Rick Busby MD Alkaline Phos 66 U/L Normal 35-104 [facility] Comment on above: Performed By: #### C MPX, TROPI, MG, CDP #### [facility] [address] [place], [place] [phone] Public Health Training Assistant: Rick Busby MD ALT enzyme act/vol 14 U/L Normal 5-33 [facility] Comment on above: Performed By: #### C MPX, TROPI, MG, CDP #### [facility] [address] [place], [place] 6822883 Public Health Training Assistant: Rick Busby MD Anion gap molar conc 16 mmol/L Normal 9-17 [facility] Comment on above: Performed By: #### C MPX, TROPI, MG, CDP #### [facility] [address] [place], [place] 5277883 Public Health Training Assistant: Rick Busby MD AST enzyme act/vol 19 U/L Normal <32 [facility] Comment on above: Performed By: #### C MPX, TROPI, MG, CDP #### [facility] [address] [place], [place] 6574983 Public Health Training Assistant: Rick Busby MD Bilirubin Ql (U) 0.36 mg/dL Normal 0.3-1.2 [facility] Comment on above: Performed By: #### C MPX, TROPI, MG, CDP #### [facility] [address] [place], [place] 7166183 Public Health Training Assistant: Rick Busby MD BUN/CRE Ratio 17 Normal 9-20 [facility] Comment on above: Performed By: #### C MPX, TROPI, MG, CDP #### [facility] [address] [place], [place] [phone] Public Health Training Assistant: Rick Busby MD Calcium mass conc 9.4 mg/dL Normal 8.6-10.4 [facility] Comment on above: Performed By: #### C MPX, TROPI, MG, CDP #### [facility] [address] [place], [place] 6530283 Public Health Training Assistant: Rick Busby MD Chloride molar conc 101 mmol/L Normal 98-107 [facility] Comment on above: Performed By: #### C MPX, TROPI, MG, CDP #### [facility] [address] [place], [place] 0882883 Public Health Training Assistant: Rick Busby MD CO2 molar conc 23 mmol/L Normal 20-31 [facility] Comment on above: Performed By: #### C MPX, TROPI, MG, CDP #### [facility] [address] [place], [place] [address]1983 Public Health Training Assistant: Rick Busby MD Creatinine mass conc 1.50 mg/dL High 0.50-0.90 [facility] Comment on above: Performed By: #### C MPX, TROPI, MG, CDP #### [facility] [address] [place] [address] Public Health Training Assistant: Rick Busby MD GFR, Amer 41 mL/min Low >60 [facility] Comment on above: Performed By: #### C MPX, TROPI, MG, CDP #### [facility] [address] [place], [place] 3402783 Public Health Training Assistant: Rick Busby MD GFR,non Amer 34 mL/min Low >60 [facility] Comment on above: Performed By: #### C MPX, TROPI, MG, CDP #### [facility] [address] [place], [place] 7388983 Public Health Training Assistant: Rick Busby MD Glucose mass conc 120 mg/dL High 70-99 [facility] Comment on above: Performed By: #### C MPX, TROPI, MG, CDP #### [facility] [address] [place], [place] 1664583 Public Health Training Assistant: Rick Busby MD Protein mass conc 6.7 g/dL Normal 6.4-8.3 [facility] Comment on above: Performed By: #### C MPX, TROPI, MG, CDP #### [address] [place], [place] 1016483 Public Health Training Assistant: Rick Busby MD Sodium molar conc 140 mmol/L Normal 135-144 [facility] Comment on above: Performed By: #### C MPX, TROPI, MG, CDP #### [address] [place], [place] 1092183 Public Health Training Assistant: Rick Busby MD Staging: Normal [facility] Comment on above: Result Comment: Stag e 1: Some kidney damage normal GFR Stage 2: Mild kidney damage GFR 60-89 Stage 3: Moderate kidney damage GFR 30-59 Stage 4: Severe kidney damage GFR 15-29 Stage 5: Severe kidney damage GFR <15 ESRD - chronic treatment by dialysis or transplant Performed By: #### C MPX, TROPI, MG, CDP #### [facility] [address] [place], [place] 1716083 Public Health Training Assistant: Rick Busby MD Urea nitrogen mass conc 25 mg/dL High 8-23 M [facility] Comment on above: Performed By: #### C MPX, TROPI, MG, CDP #### [facility] [address] [place], [place] 5494983 Public Health Training Assistant: Rick Busby MD Magnesiumon 10-04-2018 Magnesium mass conc 2.0 mg/dL Normal 1.6-2.6 [facility] Comment on above: Performed By: #### C MPX, TROPI, MG, CDP #### [facility] [address] [place] [address] Public Health Training Assistant: Rick Busby MD Troponinon 10-04-2018 Troponin I.cardiac mass conc ng/mL Normal <0.03 [facility] Comment on above: Result Comment: Trop onin T results cannot be compared to Troponin-I results. Performed By: #### C MPX, TROPI, MG, CDP #### [facility] [address] [place] [address] Public Health Training Assistant: Rick Busby MD Troponin I.cardiac mass conc Normal [facility] Comment on above: Result Comment: Refe rence Range: <0.03 Within reference range. 0.03-0.09 Possible myocardial damage. Repeat at appropriate intervals to rule out chronic elevation. >= 0.10 Indicative of myocardial damage. Patients with high levels of Biotin oral intake (i.e >5mg/day) may have falsely decreased Troponin T levels. Samples collected within 8 hours of biotin intake may require additional information for diagnosis. Performed By: #### C MPX, TROPI, MG, CDP #### [facility] [address] [place], [place] [phone] Public Health Training Assistant: Rick Busby MD Troponin I.cardiac mass conc NOT REPORTED Normal 0-14 [facility] Comment on above: Performed By: #### C MPX, TROPI, MG, CDP #### [facility] [address] [place] [address] Public Health Training Assistant: Rick Busby MD UA w/Reflex Cultureon 2018 Acetoacetic Acid,Ur Negative Normal NEG [facility] Comment on above: Performed By: #### U AX, UMICAO #### [facility] [address] [place] [address] Public Health Training Assistant: Rick Busby MD Bilirubin.direct mass conc Negative Normal [facility] Comment on above: Performed By: #### U AX, UMICAO #### [facility] [address] [place], [place] 9357683 Public Health Training Assistant: Rick Busby MD Color Nom (U) YELLOW Normal [facility] Comment on above: Performed By: #### U AX, UMICAO #### [facility] [address] [place] [address] Public Health Training Assistant: Rick Busby MD Glucose mass conc Negative Normal [facility] Comment on above: Performed By: #### U AX, UMICAO #### [facility] [address] [place] [address] Public Health Training Assistant: Rick Busby MD Hemoglobin mass conc (Bld) Negative Normal [facility] Comment on above: Performed By: #### U AX, UMICAO #### [facility] [address] [place] [address] Public Health Training Assistant: Rcik Busby MD Leuckocyte Esterase Negative Normal [facility] Comment on above: Performed By: #### U AX, UMICAO #### [facility] [address] [place] [address] Public Health Training Assistant: Rick Busby MD Nitrite,Ur Negative Normal [facility] Comment on above: Performed By: #### U AX, UMICAO #### [facility] [address] [place], [place] 7134683 Public Health Training Assistant: Rick Busby MD PH,Ur 6.5 Normal 5.0-9.0 [facility] Comment on above: Performed By: #### U AX, UMICAO #### [facility] [address] [place] [address] Public Health Training Assistant: Rick Busby MD Protein mass conc Negative Normal NEG [facility] Comment on above: Performed By: #### U AX, UMICAO #### [facility] [address] [place] [address] Public Health Training Assistant: Rick Busby MD Spec. [place],Ur 1.010 Normal 1.010-1.020 [facility] Comment on above: Performed By: #### U AX, UMICAO #### [facility] [address] [place], [place] 3184183 Public Health Training Assistant: Rick Busby MD Turbidity CLEAR Normal CLEAR [facility] Comment on above: Performed By: #### U AX, UMICAO #### [facility] [address] [place] [address] Public Health Training Assistant: Rick Busby MD Urobilinogen,Ur Normal Normal NORM [facility] Comment on above: Performed By: #### U AX, UMICAO #### [facility] [address] [place] [address] Public Health Training Assistant: Rick Busby MD Comment NOT REPORTED Normal [facility] Comment on above: Performed By: #### U AX, UMICAO #### [facility] [address] [place], [place] [address] Public Health Training Assistant: Rick Busby MD Urinalysis,Microon 9 ----- Normal [facility] Comment on above: Performed By: #### U AX, UMICAO #### [facility] [address] [place], [place] [phone] Public Health Training Assistant: Rick Busby MD Epithelial cells LM.HPF #/area (Urine sed) 0 TO 2 Normal 0-25 [facility] Comment on above: Performed By: #### U AX, UMICAO #### [facility] [address] [place] [address] Public Health Training Assistant: Rick Busby MD RBC #/vol (U) None Normal 0-2 [facility] Comment on above: Performed By: #### U AX, UMICAO #### [facility] [address] [place] [address] Public Health Training Assistant: Rick Busby MD WBC #/vol (U) None Normal 0-5 [facility] Comment on above: Performed By: #### U AX, UMICAO #### [facility] [address] [place] [address] Public Health Training Assistant: Rick Busby MD Amorphous sediment LM Ql (Urine sed) NOT REPORTED Normal [facility] Comment on above: Performed By: #### U AX, UMICAO #### [facility] [address] [place] [address] Public Health Training Assistant: Rick Busby MD Bacteria LM.HPF #/area (Urine sed) NOT REPORTED Normal [facility] Comment on above: Performed By: #### U AX, UMICAO #### [address] [place] [address] Public Health Training Assistant: Rick Busby MD Casts LM.LPF #/area (Urine sed) NOT REPORTED Normal [facility] Comment on above: Performed By: #### U AX, UMICAO #### [address] [place] [address] Public Health Training Assistant: Rick Busby MD Crystals LM Nom (Urine sed) NOT REPORTED Normal [facility] Comment on above: Performed By: #### U AX, UMICAO #### [facility] [address] [place] [address] Public Health Training Assistant: Rick Busby MD Epithelial, Renal NOT REPORTED Normal 0 [facility] Comment on above: Performed By: #### U AX, UMICAO #### [facility] [address] [place], [place] [address]69[address]3 Public Health Training Assistant: Rick Busby MD Mucus Strands NOT REPORTED Normal [facility] Comment on above: Performed By: #### U AX, UMICAO #### [facility] [address] [place], [place] [phone] Public Health Training Assistant: Rick Busby MD Other Observations NOT REPORTED Normal [facility] Comment on above: Performed By: #### U AX, UMICAO #### [facility] [address] [place] [address] Public Health Training Assistant: Rick Busby MD Trichomonas NOT REPORTED Normal [facility] Comment on above: Performed By: #### U AX, UMICAO #### [facility] [address] [place], [place] 478[address]83 Public Health Training Assistant: Rick Busby MD Yeast LM Ql (Urine sed) NOT REPORTED Normal [facility] Comment on above: Performed By: #### U AX, UMICAO #### [facility] [address] [place], [place] [address]86[address]83 Public Health Training Assistant: Rick Busby MD Vital Signs Date Time Vital Sign Value Performing Clinician Maryi lity 08-18-2024 10:140500 Body height 149.86 cm David Pike MD Work Phone: [facility] 08-18-2024 10:14-0500 Body mass index (BMI) [Ratio] 30.3 kg/m2 David Pike MD Work Phone: [facility] 08-18-2024 10:14-050 Body temperature 99 [degF] David Pike MD Work Phone: [facility] 08-18-2024 10:14-0500 Body weight 68.15 kg David Pike MD Work Phone: [facility] 08-18-2024 10:14-0500 Diastolic blood pressure 86 mm[Hg] David Pike MD Work Phone: [facility] 08-18-2024 10:14-0500 Heart rate 90 /min David Pike MD Work Phone: [facility] 08-18-2024 10:14-0500 Systolic blood pressure 145 mm[Hg] David Pike MD Work Phone: [facility] 08-17-2024 09:14-0500 Body mass index (BMI) [Ratio] 29.12 kg/m2 Christopher Karen DO Work Phone: [facility] 08-17-2024 09:14-0500 Body weight 68.77 kg Christopher Karen DO Work Phone: [facility] 08-17-2024 09:14-0500 Diastolic blood pressure 92 mm[Hg] Christopher Karen DO Work Phone: [facility] 08-17-2024 09:14-0500 Heart rate 94 /min Christopher Karen DO Work Phone: [facility] 08-17-2024 09:14-0500 SaO2% (BldA) [Mass fraction] 95 % Christopher Karen DO Work Phone: [facility] 08-17-2024 09:14-0500 Systolic blood pressure 182 mm[Hg] Christopher Karen DO Work Phone: [facility] 06-17-2024 13:05-0500 Body height 149.86 cm David Pike MD Work Phone: [facility] 06-17-2024 13:05-0500 Body mass index (BMI) [Ratio] 30.1 kg/m2 David Pike MD Work Phone: [facility] 06-17-2024 13:05-0500 Body weight 67.58 kg David Pike MD Work Phone: [facility] 06-17-2024 13:05-0500 Diastolic blood pressure 82 mm[Hg] David Pike MD Work Phone: [facility] 06-17-2024 13:05-0500 Heart rate 70 /min David Pike MD Work Phone: [facility] 06-17-2024 13:05-0500 Systolic blood pressure 154 mm[Hg] David Pike MD Work Phone: [facility] 03-29-2024 09:07-0400 Body height 149.86 cm MD David Pike Work Phone: [facility] 03-29-2024 09:07-0400 Body mass index (BMI) [Ratio] 30.1 kg/m2 MD David Pike Work Phone: [facility] 03-29-2024 09:07-0400 Body temperature 97.8 [degF] MD David Pike Work Phone: [facility] 03-29-2024 09:07-0400 Body weight 67.58 kg MD David Pike Work Phone: [facility] 03-29-2024 09:07-0400 Diastolic blood pressure 91 mm[Hg] MD David Pike Work Phone: [facility] 03-29-2024 09:07-0400 Heart rate 58 /min MD David Pike Work Phone: [facility] 03-29-2024 09:07-0400 Respiratory rate 16 /min MD David Pike Work Phone: [facility] 03-29-2024 09:07-0400 SaO2% (BldA) [Mass fraction] 97 % MD David Pike Work Phone: [facility] 03-29-2024 09:07-0400 Systolic blood pressure 158 mm[Hg] MD David Pike Work Phone: [facility] 03-16-2024 10:03-0400 Body height 149.86 cm [facility] 03-16-2024 10:03-0400 Body mass index (BMI) [Ratio] 29.9 kg/m2 [facility] 03-16-2024 10:03-0400 Body weight 67.13 kg [facility] 03-16-2024 10:03-0400 Diastolic blood pressure 80 mm[Hg] [facility] 03-16-2024 10:03-0400 Heart rate 76 /min [facility] 03-16-2024 10:03-0400 Systolic blood pressure 153 mm[Hg] [facility] 09-17-2023 09:18-0500 Body height 149.86 cm MD David Pike Work Phone: [facility] 09-17-2023 09:18-0500 Body mass index (BMI) [Ratio] 30.1 kg/m2 MD David Pike Work Phone: [facility] 09-17-2023 09:18-0500 Body temperature 97.1 [degF] MD David Pike Work Phone: [facility] 09-17-2023 09:18-0500 Body weight 67.58 kg MD David Pike Work Phone: [facility] 09-17-2023 09:18-0500 Diastolic blood pressure 95 mm[Hg] MD David Pike Work Phone: [facility] 09-17-2023 09:18-0500 Heart rate 70 /min MD David Pike Work Phone: [facility] 09-17-2023 09:18-0500 Respiratory rate 16 /min MD David Pike Work Phone: [facility] 09-17-2023 09:18-0500 SaO2% (BldA) [Mass fraction] 97 % MD David Pike Work Phone: [facility] 09-17-2023 09:18-0500 Systolic blood pressure 170 mm[Hg] MD David Pike Work Phone: [facility] 09-04-2023 08:59-0500 Body height 149.86 cm [facility] 09-04-2023 08:59-0500 Body mass index (BMI) [Ratio] 30.1 kg/m2 [facility] 09-04-2023 08:59-0500 Body weight 67.58 kg [facility] 09-04-2023 08:59-0500 Diastolic blood pressure 65 mm[Hg] [facility] 09-04-2023 08:59-0500 Heart rate 77 /min [facility] 09-04-2023 08:59-0500 Systolic blood pressure 146 mm[Hg] [facility] 08-21-2023 11:00-0500 Body height 149.86 cm David Pike Other [facility] [place] Other 08-21-2023 11:00-0500 Body mass index (BMI) [Ratio] 30.13 kg/m2 David Pike Other [facility] [place] Other 08-21-2023 11:00-0500 Body weight 67.68 kg David Pike Other [facility] [place] Other 08-21-2023 11:00-0500 Diastolic blood pressure 81 mm[Hg] David Pike Other [facility] Other 08-21-2023 11:00-0500 Respiratory rate 16 /min David Pike Other [facility] Other 08-21-2023 11:00-0500 Systolic blood pressure 144 mm[Hg] David Pike Other [facility] Other 05-06-2023 09:15-0400 Body height 149.86 cm David Pike Other [facility] Other 05-06-2023 09:15-0400 Body mass index (BMI) [Ratio] 29.69 kg/m2 David Pike Other [facility] Other 05-06-2023 09:15-0400 Body temperature 97.3 [degF] David Pike Other [facility] Other 05-06-2023 09:15-0400 Body weight 66.68 kg David Pike Other [facility] Other 05-06-2023 09:15-0400 Diastolic blood pressure 67 mm[Hg] David Pike Other [facility] Other 05-06-2023 09:15-0400 Systolic blood pressure 146 mm[Hg] David Pike Other [facility] Other 04-17-2023 11:15-0400 Body height 149.86 cm David Pike Other [facility] Other 04-17-2023 11:15-0400 Body mass index (BMI) [Ratio] 29.89 kg/m2 David Pike Other [facility] Other 04-17-2023 11:15-0400 Body weight 67.13 kg David Pike Other [facility] Other 04-17-2023 11:15-0400 Diastolic blood pressure 80 mm[Hg] David Pike Other [facility] Other 04-17-2023 11:15-0400 Systolic blood pressure 158 mm[Hg] David Pike Other [facility] Other 04-09-2023 14:30-0400 Body height 149.86 cm David Pike Other [facility] Other 04-09-2023 14:30-0400 Body mass index (BMI) [Ratio] 30.29 kg/m2 David Pike Other [facility] Other 04-09-2023 14:30-0400 Body weight 68.04 kg David Pike Other [facility] Other 04-09-2023 14:30-0400 Diastolic blood pressure 76 mm[Hg] David Pike Other [facility] Other 04-09-2023 14:30-0400 Systolic blood pressure 135 mm[Hg] David Pike Other [facility] Other 03-18-2023 09:20-0400 Body height 149.86 cm Deepa Emeka Other [facility] Other 03-18-2023 09:20-0400 Body mass index (BMI) [Ratio] 30.29 kg/m2 Deepa Emeka Other [facility] Other 03-18-2023 09:20-0400 Body temperature 97 [degF] Deepa Emeka Other [facility] Other 03-18-2023 09:20-0400 Body weight 68.04 kg Deepa Emeka Other [facility] Other 03-18-2023 09:20-0400 Diastolic blood pressure 78 mm[Hg] Deepa Emeka Other [facility] Other 03-18-2023 09:20-0400 Respiratory rate 18 /min Deepa Emeka Other [facility] Other 03-18-2023 09:20-0400 SaO2% (BldA) [Mass fraction] 96 % Deepa Emeka Other [facility] Other 03-18-2023 09:20-0400 Systolic blood pressure 131 mm[Hg] Deepa Emeka Other [facility] Other 02-04-2023 10:15-0400 Body height 149.86 cm David Pike Other [facility] Other 02-04-2023 10:15-0400 Body mass index (BMI) [Ratio] 30.49 kg/m2 David Pike Other [facility] Other 02-04-2023 10:15-0400 Body weight 68.49 kg David Pike Other [facility] Other 02-04-2023 10:15-0400 Diastolic blood pressure 74 mm[Hg] David Pike Other [facility] Other 02-04-2023 10:15-0400 Systolic blood pressure 159 mm[Hg] David Pike Other [facility] Other 10-16-2022 10:30-0400 Body height 149.86 cm David Pike Other [facility] Other 10-16-2022 10:30-0400 Body mass index (BMI) [Ratio] 30.9 kg/m2 David Piek Other [facility] Other 10-16-2022 10:30-0400 Body weight 69.4 kg David Pike Other [facility] Other 10-16-2022 10:30-0400 Diastolic blood pressure 78 mm[Hg] David Pike Other [facility] Other 10-16-2022 10:30-0400 SaO2% (BldA) [Mass fraction] 99 % David Pike Other [facility] Other 10-16-2022 10:30-0400 Systolic blood pressure 124 mm[Hg] David Pike Other [facility] Other 10-01-2022 12:20-0400 Body height 152.4 cm Deepa Emeka Other [facility] Other 10-01-2022 12:20-0400 Body mass index (BMI) [Ratio] 30.19 kg/m2 Deepa Emeka Other [facility] Other 10-01-2022 12:20-0400 Body weight 70.13 kg Deepa Emeka Other [facility] Other 10-01-2022 12:20-0400 Diastolic blood pressure 88 mm[Hg] Deepa Emeka Other [facility] Other 10-01-2022 12:20-0400 Respiratory rate 18 /min Deepa Emeka Other [facility] Other 10-01-2022 12:20-0400 SaO2% (BldA) [Mass fraction] 96 % Deepa Emeka Other [facility] Other 10-01-2022 12:20-0400 Systolic blood pressure 147 mm[Hg] Deepa Emeka Other [facility] Other 09-23-2022 10:27-0400 Blood Pressure Location [place] [facility] 09-23-2022 10:27-0400 Diastolic blood pressure 74 mm[Hg] [place] [facility] 09-23-2022 10:27-0400 Heart rate 70 /min [place] [facility] 09-23-2022 10:27-0400 Systolic blood pressure 144 mm[Hg] [place] [facility] 09-12-2022 09:30-0500 Body height 152.4 cm David Pike Other [facility] Other 09-12-2022 09:30-0500 Body mass index (BMI) [Ratio] 29.96 kg/m2 David Pike Other [facility] Other 09-12-2022 09:30-0500 Body weight 69.58 kg David Pike Other [facility] Other 09-12-2022 09:30-0500 Diastolic blood pressure 72 mm[Hg] David Pike Other [facility] Other 09-12-2022 09:30-0500 SaO2% (BldA) [Mass fraction] 94 % David Pike Other [facility] Other 09-12-2022 09:30-0500 Systolic blood pressure 130 mm[Hg] David Pike Other [facility] Other 09-17-2021 16:40-0500 Body height 152.4 cm Deepa Hendrickson Other [facility] Other 09-17-2021 16:40-0500 Body mass index (BMI) [Ratio] 30.15 kg/m2 Deepa Emeka Other [facility] Other 09-17-2021 16:40-0500 Body temperature 96.6 [degF] Deepa Emeka Other [facility] Other 09-17-2021 16:40-0500 Body weight 70.04 kg Deepa Emeka Other [facility] Other 09-17-2021 16:40-0500 Diastolic blood pressure 81 mm[Hg] Deepa Emeka Other [facility] Other 09-17-2021 16:40-0500 Respiratory rate 18 /min Deepa Emeka Other [facility] Other 09-17-2021 16:40-0500 SaO2% (BldA) [Mass fraction] 96 % Deepa Emeka Other [facility] Other 09-17-2021 16:40-0500 Systolic blood pressure 129 mm[Hg] Deepa Emeka Other [facility] Other Encounters Encounter Date Encounter Type Care Provider Facility Start: 08-18-2024 End: 08-18-2024 ambulatory David Pike MD Work Phone: [facility] Work Phone: Start: 08-18-2024 End: 08-18-2024 Patient encounter procedure David Pike MD Work Phone[facility]: Start: 08-17-2024 End: 08-17-2024 Adarsho sly Jones DO Work Phone: [facility] Start: 08-17-2024 End: 08-17-2024 Bamboo flowsheet Rosie Jones DO Work Phone: [facility] Start: 08-17-2024 End: 08-17-2024 Patient encounter procedure David Pike MD Work Phone: [facility] Work Phone: Start: 08-17-2024 End: 08-17-2024 ambulatory David Pike MD Work Phone: [facility] Work Phone: Start: 08-17-2024 End: 08-17-2024 Office outpatient new 45 minutes Rosie Jones DO Work Phone: [facility] Comment on above: Mild late onset Alzh eimer's dementia, unspecified whether behavioral, psychotic, or mood disturbance or anxiety (CMS/HCC) (Primary Dx) Start: 08-17-2024 End: 08-17-2024 ambulatory ROSIE JONES Not Available Start: 06-17-2024 End: 06-17-2024 Patient encounter procedure David Pike MD Work Phone: [facility] Work Phone: Start: 06-14-2024 Non-patient / Non-visit David Pike MD Work Phone: [facility] Work Phone: Start: 03-29-2024 End: 03-29-2024 ambulatory MD David Pike Work Phone: [facility] Work Phone: Start: 03-29-2024 End: 03-29-2024 Patient encounter procedure MD David Pike Work Phone: [facility] Work Phone: Start: 03-28-2024 End: 03-28-2024 Patient encounter procedure MD David Pike Work Phone: [facility] [place] Work Phone: Start: 03-28-2024 End: 03-28-2024 ambulatory MD David Pike Work Phone: [facility] Work Phone: Start: 03-18-2024 End: 03-18-2024 Patient encounter procedure MD David Pike Work Phone: [facility] Work Phone: Start: 03-18-2024 End: 03-18-2024 ambulatory MD David Pike Work Phone: [facility] Work Phone: Start: 03-16-2024 End: 03-16-2024 ambulatory [facility] Work Phone: Start: 03-16-2024 End: 03-16-2024 Patient encounter procedure [facility] Work Phone: Start: 03-11-2024 End: 03-11-2024 ambulatory [facility] Work Phone: Start: 03-11-2024 End: 03-11-2024 Patient encounter procedure [facility] Work Phone: Start: 10-09-2023 End: 10-09-2023 Patient encounter procedure MD David Pike Work Phone: [facility] Work Phone: Start: 10-09-2023 End: 10-09-2023 ambulatory MD David Pike Work Phone: [facility] Work Phone: Start: 10-05-2023 End: 10-05-2023 Patient encounter procedure MD David Pike Work Phone: [facility] Work Phone: Start: 10-05-2023 End: 10-05-2023 ambulatory MD David Pike Work Phone: [facility] Work Phone: Start: 10-04-2023 End: 10-04-2023 ambulatory SCOTT Laura CASTELLANO Not Available Start: 09-17-2023 End: 09-17-2023 Patient encounter procedure MD David Pike Work Phone: [facility] Work Phone: Start: 09-07-2023 End: 09-07-2023 Patient encounter procedure MD David Pike Work Phone: [facility] Work Phone: Start: 09-07-2023 End: 09-07-2023 ambulatory David Pike Facility:[facility] Start: 09-04-2023 End: 09-04-2023 ambulatory [facility] Work Phone: Start: 09-04-2023 End: 09-04-2023 Patient encounter procedure [facility] Work Phone: Start: 08-21-2023 End: 08-21-2023 ambulatory David Pike Other [facility] Other Start: 08-21-2023 Patient encounter procedure David Pike [facility] Start: 06-01-2023 End: 06-01-2023 ambulatory David Pike Other [facility] Other Start: 06-01-2023 Telephone encounter David Pike [facility] Start: 05-11-2023 End: 05-11-2023 ambulatory David Pike Other [facility] Other Start: 05-11-2023 Telephone encounter David Pike [facility] Start: 05-06-2023 End: 05-06-2023 ambulatory David Pike Other [facility] Other Start: 05-06-2023 Office outpatient visit 15 minutes David Pike [facility] Start: 04-17-2023 End: 04-17-2023 ambulatory David Pike Other [facility] Other Start: 04-17-2023 Office outpatient visit 15 minutes David Glendy [facility] Start: 04-09-2023 End: 04-09-2023 ambulatory David Pike Other [facility] Other Start: 04-09-2023 Office outpatient visit 15 minutes David Glendy [facility] Start: 03-18-2023 End: 03-18-2023 ambulatory Deepa Emeka Other [facility] Other Start: 03-18-2023 Office outpatient visit 25 minutes Deepa Emeka [facility] Start: 03-17-2023 End: 03-17-2023 ambulatory MD David Pike Work Phone: [facility] Work Phone: Start: 03-17-2023 End: 03-17-2023 Patient encounter procedure MD David Pike Work Phone: [facility] [place] Work Phone: Start: 02-23-2023 End: 02-23-2023 ambulatory David Pike Other [facility] Other Start: 02-23-2023 Nursing evaluation o f patient and report David Pike [facility] Start: 02-04-2023 End: 02-04-2023 ambulatory David Pike Other [facility] Other Start: 02-04-2023 Office outpatient visit 25 minutes David Glendy [facility] Start: 11-12-2022 End: 11-12-2022 ambulatory David Pike Other [facility] Other Start: 11-12-2022 Telephone encounter David Pike [facility] Start: 11-11-2022 End: 11-11-2022 ambulatory David Pike Other [facility] Other Start: 11-11-2022 Telephone encounter David Glendy [facility] Start: 10-16-2022 End: 10-16-2022 ambulatory David Pike Other [facility] Other Start: 10-16-2022 Office outpatient visit 15 minutes David Pike [facility] Start: 10-02-2022 End: 10-02-2022 ambulatory David Pike Other [facility] Other Start: 10-02-2022 Telephone encounter David Glendy [facility] Start: 10-01-2022 End: 10-01-2022 ambulatory Deepa Emeka Other [facility] Other Start: 10-01-2022 Office outpatient visit 25 minutes Deepa Emeka [facility] Start: 09-26-2022 End: 09-26-2022 ambulatory MD David Pike Work Phone: [facility] Work Phone: Start: 09-26-2022 End: 09-26-2022 Patient encounter procedure MD David Pike Work Phone: [facility] Work Phone: Start: 09-23-2022 End: 09-23-2022 ambulatory MD David Pike Work Phone: [facility] Work Phone: Start: 09-23-2022 End: 09-23-2022 Patient encounter procedure MD David Pike Work Phone: [facility] Work Phone: Start: 09-23-2022 End: 09-24-2022 ambulatory [place] Facility:[facility] Start: 09-23-2022 End: 09-24-2022 ambulatory [place] Facility:[facility] Start: 09-23-2022 End: 09-23-2022 Lab Drop off [place] [facility] Start: 09-23-2022 End: 09-23-2022 Patient encounter procedure [place] [facility] Start: 09-12-2022 End: 09-12-2022 ambulatory David Pike Other [facility] Other Start: 09-12-2022 Office outpatient visit 25 minutes David Pike [facility] Start: 03-19-2022 End: 03-19-2022 Patient encounter procedure MD David Pike Work Phone: [facility] [place] Start: 03-18-2022 End: 03-18-[address] DAVID PIKE Facility:[facility] Start: 03-10-2022 Adult health examination David Pike Other [facility] Other Start: 03-05-2022 End: 03-05-[address] DAVID PIKE Facility:[facility] Start: 02-20-2022 End: 02-21-[address] DAVID PIKE Facility:[facility] Start: 02-04-2022 End: 02-04-[address] DAVID PIKE Facility:[facility] Start: 12-11-2021 End: 12-12-[address] DAVID PIKE Facility:[facility] Start: 09-17-2021 End: 09-17-2021 ambulatory Deepa Hendrickson Other [facility] Other Start: 09-17-2021 Office outpatient visit 15 minutes Deepa Emeka [facility] Start: 09-16-2021 End: 09-17-[address] DAVID PIKE Facility:[facility] Start: 05-08-2021 End: 05-09-2021 ambulatory KAMALA HEBERT Facility:[facility] Start: 10-19-2018 End: 10-20-2018 Patient encounter procedure DEFAULT PHYSICIAN Facility:[facility] Start: 10-18-2018 End: 10-19-2018 Patient encounter procedure DEFAULT PHYSICIAN Facility:[facility] Start: 10-04-2018 End: 10-05-2018 Patient encounter procedure DAVID PIKE [facility] Procedures Date Procedure Procedure Detail Performing Clinician Start: 10-05-2023 Screening mammograph y of bilateral breasts MD David Pike Work Phone: Start: 09-26-2022 Bilateral mammography M D David Pike Work Phone: Start: 09-26-2022 Ultrasonography of r ight breast MD David Pike Work Phone: Start: 02-06-2020 Cystourethroscopy wi th dilation of urethral stricture [place] Start: 10-05-2018 DISCHARGE PATIENT WILBERT PIKE Start: 10-05-2018 INITIATE OXYGEN THER APY PROTOCOL DAVID PIKE Start: 10-05-2018 Blood count complete auto&auto difrntl wbc DAVID PIKE Start: 10-05-2018 IP CONSULT TO CASE MANAGEMENT DAVID PIKE Start: 10-05-2018 NURSING COMMUNICATION Regine PIKE Start: 10-05-2018 PULSE OXIMETRY SPOT CHECK DAVID PIKE Start: 10-05-2018 REASON FOR NO MECHAN ICAL VTE PROPHYLAXIS DAVID PIKE Start: 10-05-2018 TELEMETRY MONITORING MA NINOSKA PIKE Start: 10-05-2018 DIET GENERAL DAVID HENRIQUEZ UN Start: 10-05-2018 FULL CODE DAVID HENRIQUEZ UN Start: 10-05-2018 INITIATE OXYGEN THER APY PROTOCOL DAVID PIKE Start: 10-05-2018 NOTIFY PHYSICIAN (SPECIFY) DAVID PIKE Start: 10-05-2018 TOBACCO CESSATION EDUCATION DAVID PIKE Start: 10-05-2018 VITAL SIGNS DAVID HENRIQUEZ UN Start: 10-04-2018 PATIENT STATUS (FROM ED OR OR/PROCEDURAL) DAVID PIKE Start: 10-04-2018 Ct head/brain w/o co ntrast material DAVID PIKE Start: 10-04-2018 Urinalysis microscopic only DAVID PIKE Start: 10-04-2018 Urnls dip stick/tabl et rgnt auto w/o microscopy DAVID PIKE Start: 10-04-2018 Assay of magnesium GERARDO PIKE Start: 10-04-2018 Assay of troponin quantitative DAVID PIKE Start: 10-04-2018 Blood count complete auto&auto difrntl wbc DAVID PIKE Start: 10-04-2018 Ecg routine ecg w/le ast 12 lds w/i&r DAVID PIKE Start: 08-31-2015 Cystoscopy [place] AMOR Start: 06-12-2015 left cataract with iol [place] Start: 12-12-2011 Cystoscopy [place] Robb ERRY Cataract (morphologi c abnormality) [place] section [place] DENISE RRY Screening for malign ant neoplasm of breast David Pike Other Plan of Treatment Date Care Activity Detail Author Start: 08-17-2024 End: 08-17-2025 Cobalamin (Vitamin B12) [Mass/volume] in Serum or Plasma Vitamin B12 Lab Routine Mild late onset Alzheimer's dementia, unspecified whether behavioral, psychotic, or mood disturbance or anxiety (CMS/HCC) Expected: 08/17/2024 (Approximate), Expires: 08/17/2025 [facility] [employer] Work Phone: Comment on above: Expected: 08/17/2024 (Approximate), Expires: 08/17/2025 Start: 08-17-2024 End: 08-17-2025 Creatinine [Mass/volume] in Serum or Plasma Creatinine, Serum Lab Routine Mild late onset Alzheimer's dementia, unspecified whether behavioral, psychotic, or mood disturbance or anxiety (CMS/HCC) Expected: 08/17/2024 (Approximate), Expires: 08/17/[address] [facility] Comment on above: Expected: 08/17/2024 (Approximate), Expires: 08/17/2025 Start: 08-17-2024 End: 08-17-2025 MR Brain WO and W contrast IV MR brain w and wo contrast routine Imaging Routine Mild late onset Alzheimer's dementia, unspecified whether behavioral, psychotic, or mood disturbance or anxiety ([facility]/HCC) Expected: 08/17/2024, Expires: 08/17/[address] [facility] Comment on above: Expected: 08/17/2024 , Expires: 08/17/2025 Start: 08-17-2024 End: 08-17-2025 Thyrotropin [Units/volume] in Serum or Plasma TSH Lab Routine Mild late onset Alzheimer's dementia, unspecified whether behavioral, psychotic, or mood disturbance or anxiety ([facility]/HCC) Expected: 08/17/2024 (Approximate), Expires: 08/17/[address] [facility] Comment on above: Expected: 08/17/2024 (Approximate), Expires: 08/17/2025 Start: 08-17-2024 End: 08-17-2024 Patient encounter procedure 08/17/2024 9:30 AM EST Office Visit JENNA AYALAEVUE [address] [place] [address] [phone] Rosie Jones DO [address] [place] [address] [phone] Arrived JENNA GAGE Comment on above: Arrived Start: 06-17-[address] [facility] Work Phone: Start: 03-13-2024 Influenza vaccination Influenza Vacc ine (#1) [facility] Start: 09-23-2022 [facility] Start: 04-29-2020 Pneumococcal Vaccine : 65+ Years (2 of 2 - PPSV23 or PCV20) Pneumococcal Vaccine: 65+ Years (2 of 2 - PPSV23 or PCV20) [facility] Bacteria identified in Urine by Culture [facility] Bacteria identified in Urine by Culture [facility] Patient referral [facility] Work Phone: Renal function 1999 panel - Serum or Plasma [facility] Renal function 1999 panel - Serum or Plasma [facility] Immunizations Immunization Date Immunization Notes Care Provider Fa cility 05-04-2024 influenza virus vaccine, unspecified formulation Rosie Jones DO Work Phone: [facility] 05-16-2022 influenza virus vaccine, split virus (incl. purified surface antigen) David Pike Other [facility] Other 05-16-2022 influenza virus vaccine, unspecified formulation [facility] 05-08-2021 COVID-19 Vaccine Moderna - Documentation Purposes Only David Pike Other [facility] 04-22-2021 influenza virus vaccine, split virus (incl. purified surface antigen) David Pike Other [facility] Other 04-22-2021 influenza virus vaccine, unspecified formulation [facility] 08-30-2020 COVID-19 Vaccine Moderna - Documentation Purposes Only David Pike Other [facility] 07-30-2020 COVID-19 Vaccine Moderna - Documentation Purposes Only David Pike Other [facility] 05-20-2020 influenza virus vaccine, split virus (incl. purified surface antigen) David Pike Other [facility] Other 05-20-2020 influenza virus vaccine, unspecified formulation [facility] 05-10-2020 pneumococcal polysaccharide vaccine, 23 valent David Pike Other [facility] 08-22-2019 zoster vaccine, live David Pike Other [facility] 05-21-2019 influenza virus vaccine, split virus (incl. purified surface antigen) David Pike Other [facility] Other 05-21-2019 influenza virus vaccine, unspecified formulation [facility] 06-21-2017 influenza virus vaccine, split virus (incl. purified surface antigen) David Pike Other [facility] Other 06-21-2017 influenza virus vaccine, unspecified formulation [facility] 04-08-2016 influenza virus vaccine, split virus (incl. purified surface antigen) David Glendy Other [facility] Other 04-08-2016 influenza virus vaccine, unspecified formulation [facility] Payers Date Payer Category Payer Unknown [id number] 2022 Medicare (Managed Care) [id number]. [id number] 2022 Medicare [id number] 2018 Medicare [id number] 2014 Unknown [id number] 1959 Medicare [id number] 1959 Self-pay [id number] 1940 Unknown [id number] [id number] 1940 Unknown [id number] [id number] 1940 Unknown [id number] [id number] 1940 Unknown [id number] 2.16.840.1.071285.3.579.2.593 1940 Unknown [id number] 2.16.840.1.020812.3.579.2.593 1940 Unknown [id number] [id number] 1940 Unknown [id number] 2.16.840.1.755707.3.579.2.593 1940 Unknown [id number] 2.16.840.1.386760.3.579.2.593 1940 Unknown [id number] 2.16.840.1.785836.3.579.2.593 1940 Unknown [id number] 2.16.840.1.114827.3.579.2.727 1940 Unknown [id number] 2.16.840.1.631107.3.579.2.727 1940 Unknown [id number] 2.16.840.1.244649.3.579.2.1259 1940 Unknown [id number] [id number] Medicare Medicare [id number] Medicare [id number] Self-pay Self Pay [id number] Unknown Unknown Regular Insurance [id number] Unknown [id number] Social History Date Type Detail Facility Unknown if ever smoked [facility] Other Sex Assigned At [facility] Start: 1940 Sex Assigned At Female F [facility] Start: 09-23-2022 End: 09-17-2023 Tobacco smoking status Never smoked tobacco (finding) [facility] Tobacco smoking status Never [facility] Tobacco smoking status NHIS Tobacco smoking consumption unknown [facility] Start: 1940 Sex assigned at Not on file N [facility] Start: 08-18-2024 End: 08-18-2024 Sex Female (finding) [facility] Functional Status Date Assessment Result Facility 09-23-2022 Functional Status N/A [facility] Clinical Notes 09-17-2021 to 08-17-2024 Rosie Jones, DO - 08/17/2024 9:30 AM EST Note Date & Type Note Facility 08-17-2024 History of Presen t illness Narrative Images from the original note were not included. Chief complaint: Memory impairment Subjective Ella Frank, 84 y.o., female Patient presents today for a neurologic consult at the request of Dr. David Pike for memory changes. Patient states she lives with her daughter and she told her she needed to be evaluated. Patient states she will go somewhere and forget what she is there to do. Patient is independent in all ADL's. Patient is driving and denies any issues with getting lost. She states she needs her daughter to repeat herself quite a bit. Patient admits to sleeping well at night about 6 hours. She admits to some vivid dreams and increase in agitation. Denies any hallucinations. MOCA . Review of Systems No past medical history on file. No past surgical history on file. No family history on file. Social History Tobacco Use Smoking status: Not on file Smokeless tobacco: Not on file Substance Use Topics Alcohol use: Not on file Allergies: Diphenhydramine, Nitrofurantoin, Penicillins, Pseudoephedrine hcl, and Statins Vitals: 08/17/24 0914 BP: (!) 182/92 Pulse: 94 SpO2: 95% Body mass index is 29.12 kg/m . weight: 151 lb 9.6 oz Neurologic exam: Mental status: Awake, alert to person, place and time. Sharan cognitive assessment: Language is fluent without aphasia. Attention and concentration are normal. Fund of knowledge is appropriate for level of education. Cranial nerves: CN II: Visual acuity is normal. Visual berman full to confrontation. CN III, IV, : pupils equal round and reactive to light. Extraocular movements intact. No ptosis present. CN V: Facial sensation is normal. CN VII: Full and symmetric facial movement. CN VIII: Hearing is normal to finger rub bilaterally: CN IX and X: Palate elevates symmetrically. CN XI: Shoulder shrug is normal bilaterally. CN XII: Tongue is midline without atrophy or fasciculation. Motor: RUE Strength deltoid, , biceps , triceps , wrist extensors , wrist flexor , international marketing executive strength 5/5. LUE Strength deltoid , biceps , triceps , wrist extensors , wrist flexor , international marketing executive strength 5/5. RLE Strength illopsoas, quadriceps, tibialis anterior, and gastrocnemius strength 5/5. LLE Strength illopsoas, quadriceps, tibialis anterior, and gastrocnemius strength 5/5. Normal tone x4 extremities. Bulk is normal. Sensory: Sensation is intact to light touch throughout Four extremities. Reflexes: RUE biceps reflex 2+ brachioradialis reflex 2+ . LUE biceps reflex 2+ brachioradialis reflex 2+ . RLE knee reflex 1+ . LLE knee reflex 1+ . Austin's sign negative. Coordination: [id number] testing and rapid alternating movements are normal Gait: Normal Review and summary of old records: Sharan cognitive assessment at [facility]: CT of the brain without contrast on 10/04/2018: Multiple old infarcts. Small-vessel ischemic disease noted. Assessment/Plan Diagnoses and all orders for this visit: Mild late onset Alzheimer's dementia, unspecified whether behavioral, psychotic, or mood disturbance or anxiety (CMS/HCC) It is my impression that the patient has signs and symptoms consistent with a mild Alzheimer's disease. The patient's Whitney cognitive assessment was . CT of the brain in 2019 was unremarkable for acute pathology but did show evidence of old infarct. Plan: YESSY brain with and without contrast to evaluate for other causes of memory impairment Check B12 and thyroid stimulating hormone Given the patient's memory impairment we did talk about the need for involvement for and estate planning. May consider agent such as donepezil at follow up Pt has been fully educated on their diagnosis, lab results, treatment options, follow up plan, and return instructions documented in this encounter [facility] 06-17-2024 Evaluation note Diagnosis Onset Date Resolution CKD (chronic kidney disease) stage 4, GFR 15-29 ml/min acute June 17 12:57pm HTN (hypertension) acute Decemb er 2023 12:57pm Memory changes acute June 172023 12:57pm Restless leg syndrome acute Dec ember 2023 12:57pm [facility] Work Phone: 1(947) 637-220402-09-2024 Evaluation note* Encounter Date Diagnosis Assessment Notes Treatment Notes Treatment Clinical Notes Aug, Dysuria (ICD-10 - R30.0) UA normal Aug, Medicare annual wellness visit, subsequent (ICD-10 - Z00.00) Personalized health advice was given to the beneficiary including a written plan for screenings discussed and provided. Advanced care planning reviewed and/or information given as requested. Additional counseling was provided here today in regards to, [ ]. The above visit was performed by [ ], under direct supervision of [ ]. Document reviewed and amended by provider signed below. Aug, Restless leg syndrome (ICD-10 - G25.81) Increased dose to 1mg qhs [facility] Other 10-30-2023 Evaluation note* Encounter Date Diagnosis Assessment Notes Treatment Notes Treatment Clinical Notes Apr, Restless leg syndrome (ICD-10 - G25.81) [facility] Other 10-25-2023 Evaluation note* Encounter Date Diagnosis Assessment Notes Treatment Notes Treatment Clinical Notes Apr, Acute non-recurrent maxillary sinusitis (ICD-10 - J01.00) Take antibiotics as prescribed. Rest fluids. Call if symptoms worsens or persist more than 1 week. [facility] Other 10-06-2023 Evaluation note* Encounter Date Diagnosis Assessment Notes Treatment Notes Treatment Clinical Notes Apr, Restless leg syndrome (ICD-10 - G25.81) Increased dose of med to 0.5mg. Presently tolerates 0.25mg without adverse side effects. Discussed daily MVI and good hydration. Apr, Anxiety (ICD-10 - F41.9) Notes am drowsiness. Agrees to d/c medication and monitor symptoms. Discussed could be side effect of regular use of med. [facility] Other 09-28-2023 Evaluation note* Encounter Date Diagnosis Assessment Notes Treatment Notes Treatment Clinical Notes Mar, Dysuria (ICD-10 - R30.0) repeat UA is normal. Continue present medication. will forward result to Dr. Shah in . Mar, Visit for suture removal (ICD-10 - Z48.02) Pt tolerated well. Sutures removed. Skin tears and laceration treated with steristrips as well. [facility] Other 09-06-2023 Evaluation note* Encounter Date Diagnosis Assessment Notes Treatment Notes Treatment Clinical Notes Mar, CKD (chronic kidney disease) stage 4, GFR 15-29 ml/min (ICD-10 - N18.4) She has a CKD likely due to the longstanding hypertension. Her baseline serum creatinine is1.6-1.9 mg/dL. Her renal function has been declining due to progression of her of CKD. She has no evidence of hematuria or proteinuria on UA. I discussed with the importance of good HTN control to slow down the progression of disease. I have advised her to change her clonazepam at bedtime due to the falls. Due to her long-term use and risk of withdrawal I would not stop it abruptly. If she continues to have dopey feeling then discussed with the PCP. Mar, 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 (ICD-10 - I12.9) Her blood pressure is high today but usually controlled and she appears to be euvolemic. Continue current medications. I have advised her to monitor blood pressure at home and call office if stays above 140 over 90 mmHg. 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 Mar, Vitamin D deficiency (ICD-10 - E55.9) Her calcium within normal limit. I have advised her to stop the calcium but continue the vitamin D 5000 units daily. Mar, Hypercalcemia (ICD-10 - E83.52) MBD parameters including Calcium, phosphorus, PTH and vitamin D are within the goal. Mar, Recurrent urinary tract infection (ICD-10 - N39.0) She has a recurrent UTIs and history of urethral stricture. She follows with Dr. Shah. Mar, Hyperuricemia (ICD-10 - E79.0) She has hyperuricemia due to the CKD but denies any gout flare. We will continue to monitor without medication. [facility] Other 08-14-2023 Evaluation note* Encounter Date Diagnosis Assessment Notes Treatment Notes Treatment Clinical Notes Feb, Dysuria (ICD-10 - R30.0) [facility] Other 07-26-2023 Evaluation note* Encounter Date Diagnosis Assessment Notes Treatment Notes Treatment Clinical Notes Jan, Anxiety (ICD-10 - F41.9) Presently on klonopin. Was on prozac 20mg daily in 2018. She recalls stopping it as it made her tired. Will try lower dose. Discussed triggers - lately being home alone with bad weather this summer. Jan, Lactose intolerance (ICD-10 - E73.9) Relates diarrhea to ice cream. It is resolved w lactaid. Discussed food triggers at length. Jan, Acute pain of right shoulder (ICD-10 - M25.511) Handwrote a PT form. Also suggested OTC Voltaren gel. Jan, CKD (chronic kidney disease) stage 4, GFR 15-29 ml/min (ICD-10 - N18.4) Pt will followup w Dr. Hendrickson as scheduled. Reassured that creatinine of 1.6 is a good reading for her issues. [facility] Other 05-02-2023 Evaluation note* Encounter Date Diagnosis Assessment Notes Treatment Notes Treatment Clinical Notes November, Restless leg syndrome (ICD-10 - G25.81) [facility] Other 04-06-2023 Evaluation note* Encounter Date Diagnosis Assessment Notes Treatment Notes Treatment Clinical Notes Oct, HTN (hypertension) (ICD-10 - I10) Reviewed medication list. Will incrementally try decreasing amount and doses of medications in case they are causing increased fatigue or lack of focus. We will start here. Oct, Anxiety (ICD-10 - F41.9) Reviewed medications stressors and discussed with Ella. We will continue to monitor situation and continue present medicines. [facility] Other 03-22-2023 Evaluation note* Encounter Date Diagnosis Assessment Notes Treatment Notes Treatment Clinical Notes Sep, CKD (chronic kidney disease) stage 4, GFR 15-29 ml/min (ICD-10 - N18.4) She has a CKD likely due to the longstanding hypertension. Her baseline serum creatinine is1.6-1.9 mg/dL. Her renal function has been declining due to progression of her of CKD. She has no evidence of hematuria or proteinuria on UA. I discussed with the importance of good HTN control to slow down the progression of disease. Sep, Jeremy brown w cr kid I-IV (ICD-10 - I12.9) Her blood pressure is high today but usually controlled and she appears to be euvolemic. Continue current medications. I have advised her to monitor blood pressure at home and call office if stays above 140 over 90 mmHg. 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 Sep, Vitamin D deficiency (ICD-10 - E55.9) Her calcium within normal limit. I have advised her to stop the calcium but continue the vitamin D 5000 units daily. Sep, Hypercalcemia (ICD-10 - E83.52) She has hypercalcemia with low PTH likely due to the oral calcium and vitamin D supplement. I have advised her to stop the calcium plus vitamin D. We will continue vitamin D for now. Sep, Recurrent urinary tract infection (ICD-10 - N39.0) She has a recurrent UTIs and history of urethral stricture. She follows with Dr. Shah. Sep, Hyperuricemia (ICD-10 - E79.0) She has hyperuricemia due to the CKD but denies any gout flare. We will continue to monitor without medication. [facility] Other 03-14-2023 NoteChief Complaint Pt referral for incontinence HPI Staff Patient is here for referral from Dr. Pike for Incontinence. 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 Patient states incontinence has been an issue over 7-8 years. Patient has tried Estradiol cream in the past that was given by Dr. Shah 2020. Patient statesit helped with UTI's. Patient uses [facility] PVR=16mL Dysuria: no Incomplete bladder emptying: yes Hematuria: no Frequency: no Urgency: Patient states sometimes Nocturia: 1-2x Stream: Patient is able to start stream and has trouble stopping stream Leaking: yes Post void dripping: yes Wearing pads/ Depends: Wears pads 2x day Urge incontinence: yes Stress incontinence: yes Incontinence without Sensory Awareness: no Abdominal pain: no Flank pain: no History of Present Illness staff HPI reviewed and agree. Review of Systems PHQ Score Initial Depression Screen Score: 0 no fever, chills, malaise, myalgia. no rash/lesions. no chest pain, palpitations, or SOB. no abdominal pain, nausea, vomiting. no unilateral calf swelling, redness, pain Physical Exam Vitals & Measurements HR: 70(Peripheral) BP: 144/74 HT: 60 in HT: 152 cm WT: 68 kg WT: 149.6 lb BMI: 29.43 General: nontoxic, NAD Mouth: moist mucosa Lungs: normal respiratory effort Cardio: regular rate, good distal perfusion Abdomen: nondistended, no suprapubic distention or tenderness, no CVA tenderness Neurologic: Grossly normal Skin: No rashes or suspicious lesions Assessment/Plan Pt. states Dr. Shah no longer takes her insurance, so she returned to our office. Last saw Dr. Shahapproximately a year ago. Last saw DLS 04/2020. 1. Stress incontinence (N39.3: Stress incontinence (female) (male)) Referred by Dr. David Pike for incontinence. Reports incontinence has been an issues for 7-8 years. Leakage has worsened since last seeing Dr. Fitch. Changes pad 1-2x daily, but unable to go without wearing one. Pt c/o predominant stress incontinence. I went over the options for treatment with the patient. We discussed conservative treatment with pelvic floor exercises with or without a physical therapist. We also discussed vaginal inserts such as anti-incontinence pessaries. Definitive treatment including urethral bulking agents and mid-urethral sling were discussed as these are options offered by my colleagues. Details of each procedure, success rates, recovery/downtimeexpectations, and risks were discussed at length. We also spoke briefly about traditional slings with autologous fascia. This is also a very successful procedure without the use of synthetic mesh. It does however require a significantly longer recovery period and has a slightly higher risk of voiding dysfunction. And pt understands that it is not offered by our physicians so she would need referred elsewhere. Based on the above discussion the patient prefers to start with PFPT. If this fails then she would like to consider Bulkamid - was given brochure. 2. Recurrent UTI (N39.0: Urinary tract infection, site not specified) Has been on Macrodantin 50mg qhs for management of recurrent infections in the past, but states that she had horrible diarrhea with it. Made mention that she saw Dr. Shah in 2020 and was started on Estrace cream which did help infections. Shares she is still using cream 1-2x per week and has had only one infection since last seeing Dr. Shah. She does not like using the cream and discussed stopping it. I explained that it appears roberto carlos working and would recommend she stay on it. UA today large GABRIELLA - will send for culture due to starting PFPT to ensure no bacteria. Asx currently. no abx sent. 3. Postinfective urethral stricture in female (N35.12: Postinfective urethral stricture, not elsewhere classified, female) S/p Cysto/UD 02/06/[address] Fitch. reports good steady stream. no dysuria. Follow-up With When Contact Information SHONNA MO PA-C, URL [address] [place] [address] Additional Instructions: Call patient & schedule PFPT Patient Education Urinary Incontinence Documentation recorded by the jericho Larson accurately reflects the services(s) I performed and decisions made by me. Authenticated by Shonna Mo PA-C on 09/23/2022 12:35:44. I, Mayela Larson, personally scribed for Shonna Mo PA-C on 09/23/2022 11:13:57. . Problem List/Past Medical History Ongoing BMI 30.0-30.9,adult Cystitis Mixed incontinence Nocturia Post-void dribbling Postinfective urethral stricture in female Recurrent UTI Stress incontinence Urgency incontinence Historical No qualifying data Procedure/Surgical History Cystourethroscopy with dilation of urethral stricture (02/06/2020), Cystoscopy (08/31/2015), left cataract with iol (06/12/2015), Cystoscopy (12/12/2011), Caesarean section, C (more content not included)...[facility] Comment on above:Result Comment: Electronically Signed By: SHONNA MO PA-C\.br\Date and Time Signed: 09/24/2311:35 EDT\.br\Electronically Co-Signed By: Mayela Larson\.br\Date and Time Co-Signed: 09/23/22 11:14 [id number] Evaluation + Plan note Diagnostic Tests Pending * Urine Culture 09/23/22 [facility]03-14-2023 Hospital Discharge instructions Patient Education 09/23/2022 11:07:59 Urinary Incontinence Urinary Incontinence Urinary incontinence refers to a condition in which a person is unable to control where and when topass urine. A person with this condition will urinate when he or she does not mean to (involuntarily). What are the causes? This condition may be caused by: Medicines. Infections. Constipation. Overactive bladder muscles. Weak bladder muscles. Weak pelvic floor muscles. These muscles provide support for the bladder, intestine, and, in women,the uterus. Enlarged prostate in men. The prostate is a gland near the bladder. When it gets too big, it can pinch the urethra. With the urethra blocked, the bladder can weaken and lose the ability to empty properly. Surgery. Emotional factors, such as anxiety, stress, or post-traumatic stress disorder (PTSD). Pelvic organ prolapse. This happens in women when organs shift out of place and into the vagina. This shift can prevent the bladder and urethra from working properly. What increases the risk? The following factors may make you more likely to develop this condition: Older age. Obesity and physical inactivity. and childbirth. Menopause. Diseases that affect the nerves or spinal cord (neurological diseases). Long-term (chronic) coughing. This can increase pressure on the bladder and pelvic floor muscles. What are the signs or symptoms? Symptoms may vary depending on the type of urinary incontinence you have. They include: A sudden urge to urinate, but passing urine involuntarily before you can get to a bathroom (urge incontinence). Suddenly passing urine with any activity that forces urine to pass, such as coughing, laughing, exercise, or sneezing (stress incontinence). Needing to urinate often, but urinating only a small amount, or constantly dribbling urine (overflow incontinence). Urinating because you cannot get to the bathroom in time due to a physical disability, such as arthritis or injury, or communication and thinking problems, such as Alzheimer disease (functional incontinence). How is this diagnosed? This condition may be diagnosed based on: Your medical history. A physical exam. Tests, such as: ?Urine tests. ?X-rays of your kidney and bladder. ?Ultrasound. ?CT scan. ?Cystoscopy. In this procedure, a health care provider inserts a tube with a light and camera (cystoscope) through the urethra and into the bladder in order to check for problems. ?Urodynamic testing. These tests assess how well the bladder, urethra, and sphincter can store and release urine. There are different types of urodynamic tests, and they vary depending on what the test is measuring. To help diagnose your condition, your health care provider may recommend that you keep a log of when you urinate and how much you urinate. How is this treated? Treatment for this condition depends on the type of incontinence that you have and its cause. Treatment may include: Lifestyle changes, such as: ?Quitting smoking. ?Maintaining a healthy weight. ?Staying active. Try to get 150 minutes of moderate-intensity exercise every week. Ask your health care provider which activities are safe for you. ?Eating a healthy diet. ?Avoid high-fat foods, like fried foods. ?Avoid refined carbohydrates like white bread and white rice. ?Limit how much alcohol and caffeine you drink. ?Increase your fiber intake. Foods such as fresh fruits, vegetables, beans, and whole grains are healthy sources of fiber. Pelvic floor muscle exercises. Bladder training, such as lengthening the amount of time between bathroom breaks, or using the bathroom at regular intervals. Using techniques to suppress bladder urges. This can include distraction techniques or controlled breathing exercises. Medicines to relax the bladder muscles and prevent bladder spasms. Medicines to help slow or prevent the growth of a man's prostate. Botox injections. These can help relax the bladder muscles. Using pulses of electricity to help change bladder reflexes (electrical nerve stimulation). For women, using a medical office administrator to prevent urine leaks. This is a small, tampon-like, disposable device that is inserted into the urethra. Injecting collagen or carbon beads (bulking agents) into the urinary sphincter. These can help thicken tissue and close the bladder opening. Surgery. Follow these instructions at home: Lifestyle Limit alcohol and caffeine. These can fill your bladder quickly and irritate it. Keep yourself clean to help prevent odors and skin damage. Ask your doctor about special skin creams and cleansers that can protect the skin from urine. Consider wearing pads or adult diapers. Make sure to change them regularly, and always change them right after experiencing incontinence. General instructions Take [id number] and prescription medicines only as told by your health care provider. Use the bathroom about every 3 4 hours, even if you do not feel the need to urinate. Try to empty your bladder completely every time. After urinating, wait a minute. Then try to urinate again. Make sure you are in a relaxed position while urinating. If your incontinence is caused by nerve problems, keep a log of the medicines you take and the times you go to the bathroom. Keep all follow-up visits as told by your health care provider. This is important. Contact a health care provider if: You have pain that gets worse. Your incontinence gets worse. Get help right away if: You have a fever or chills. You are unable to urinate. You have redness in your groin area or down your legs. Summary Urinary incontinence refers to a condition in which a person is unable to control where and when topass urine. This condition may be caused by medicines, infection, weak bladder muscles, weak pelvic floor muscles, enlargement of the prostate (in men), or surgery. The following factors increase your risk for developing this condition: older age, obesity, and childbirth, menopause, neurological diseases, and chronic coughing. There are several types of urinary incontinence. They include urge incontinence, stress incontinence, overflow incontinence, and functional incontinence. This condition is usually treated first with lifestyle and behavioral changes, such as quitting smoking, eating a healthier diet, and doing regular pelvic floor exercises. Other treatment options include medicines, bulking agents, medical devices, electrical nerve stimulation, or surgery. This information is not intended to replace advice given to you by your health care provider. Make sure you discuss any questions you have with your health care provider. Document Released: 08/06/2005 Document Revised: 07/09/2018 Document Reviewed: 10/08/2017 [employer] Patient [employer] 2020 [employer] Follow Up Care 09/22/2022 11:14:40 With:SHNONA MO PA-C, URL Address: [address] [place] [address] When: Unknown [facility] 03-03-2023 Evaluation note* Encounter Date Diagnosis Assessment Notes Treatment Notes Treatment Clinical Notes Sep, Breast pain, right (ICD-10 - N64.4) Called [facility] - they agree B diagnostic would be fine. Sep, Restless leg syndrom e (ICD-10 - G25.81) Will increase dose of present med Sep, Other specified hypothyroidism (ICD-10 - E03.8) due for labs. will base refill dose on lab results. Sep, Anxiety (ICD-10 - F41.9) Pt feels anxious in her new home. She is alone when her daughter is at work and she feels overwhelmed with stuff all over the house. Will check labs prior to adding med. Presently on clonazepam Sep, Frequent UTI (ICD-10 - N39.0) Established w Dr. Shah, but she changed her health insurance. Requests a referral to Dr. Charles. [facility] Other 03-08-2022 Evaluation note* Encounter Date Diagnosis Assessment Notes Treatment Notes Treatment Clinical Notes Sep, CKD (chronic kidney disease) stage 4, GFR 15-29 ml/min (ICD-10 - N18.4) She has a CKD likely due to the longstanding hypertension. Her baseline serum creatinine is1.6-1.9 mg/dL. Her renal function has been declining due to progression of her of CKD. She has no evidence of hematuria or proteinuria on UA. I discussed with the importance of good HTN control to slow down the progression of disease. 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 Continue current medications. Sep, Recurrent urinary tract infection (ICD-10 - N39.0) She has a recurrent UTIs and history of urethral stricture. She follows with Dr. Shah. 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 Sep, Vitamin D deficiency (ICD-10 - E55.9) Her calcium within normal limit. I have advised her to stop the calcium but continue the vitamin D 5000 units daily. [facility] Other Evaluation + Plan note No data available for this section [facility] evaluation noteNo assessment information available [facility] Work Phone: Evaluation noteNo InformationNort [facility] Other Evaluation note* Diagnosis Onset Date Resolution Status Postoperative bleeding from incision acute 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 acu te CKD (chronic kidney disease) stage 4, GFR 15-29 ml/min acute Gout acute Hyperglyceridemia acute Renal cyst acute [facility] Work Phone: Evaluation note* Diagnosis Onset Date Resolution Status CKD (chronic kidney disease) stage 4, GFR 15-29 ml/min acute HTN (hypertension) acute Hypothyroidism acute Restless leg syndrome acute [facility] Work Phone: Evaluation note* Diagnosis Onset Date Resolution Status CKD (chronic kidney disease) stage 4, GFR 15-29 ml/min acute HTN (hypertension) acute Hypothyroidism acute Restless leg syndrome acute 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 acu te CKD (chronic kidney disease) stage 4, GFR 15-29 ml/min acute Gout acute Hyperglyceridemia acute Renal cyst acute [facility] Work Phone: Evaluation note* Diagnosis Mild late onset Alzheimer's dementia, unspecified whether behavioral, psychotic, or mood disturbance or anxiety ([facility] Primary documented in this encounter [facility] N[facility]ative - Reported* Type Description Date Medical History ANXIETY Medical History GERD Medical History HYPERLIPIDEMIA Medical History MACULAR DEGNERATION OF RETINA UN SPECIFIED Medical History OSTEOPENIA Medical History GOUT Medical History OVERACTIVE BLADDER Medical History HYPOTHYROIDISM Medical History UTI'S X2 10/19/2020, 12/03/2020 Surgical History COLONOSCOPY 06/22/2019 Surgical History BLADDER STRETCH 2016 Surgical History BASAL CELL BY RIGHT EYE 2016 Surgical History EGD 2013 Surgical History LEFT CATARACT 2015 Surgical History VITRECTOMY RIGHT EYE [address] LOVING CATARACT 2011 Surgical History BONE REMOVED RIGHT FOOT 2007 Surgical History 4 c-sections Hospitalization History SEE ABOVE Hospitalization History syncope 9 [facility] Other History general Narrative - Reported* Type Description Date Medical History ANXIETY Medical History GERD Medical History HYPERLIPIDEMIA Medical History MACULAR DEGNERATION OF RETINA UN SPECIFIED Medical History OSTEOPENIA Medical History GOUT Medical History OVERACTIVE BLADDER Medical History HYPOTHYROIDISM Medical History UTI'S X2 10/19/2020, 12/03/2020 Medical History UTI'S X 3 02/10/2022., , 03/05/2022 Medical History Restless leg syndrome Medical History HTN (hypertension) Medical History Hyperglyceridemia Medical History Abnormal blood chemistry Medical History Dark stools Medical History Chest discomfort Medical History Left wrist pain Medical History Osteoporosis Medical History Benign hypertension with chronic kidney disease, stage II Surgical History COLONOSCOPY 06/22/2019 Surgical History BLADDER STRETCH 2016 Surgical History BASAL CELL BY RIGHT EYE 2016 Surgical History EGD 2012 Surgical History LEFT CATARACT 2014 Surgical History VITRECTOMY RIGHT EYE [address] LOVING CATARACT 2010 Surgical History BONE REMOVED RIGHT FOOT 2007 Surgical History 4 c-sections Hospitalization History SEE ABOVE Hospitalization History syncope 9 [facility] Other Hospital Discharge instructions No data available for this section [facility] No data available for this section [facility] reason for visit Narrative* Consultation (Routine) - Pending Review Specialty Diagnoses / Procedures Referred By Contac t Referred To Contact Neurology Diagnoses Other amnesia Procedures RI OFFICE/OUTPATIENT [facility] David Pike MD [address] [place] [address] Phone: tel: fax: Edgar De La Rosa MD [address] [place] [address] Phone: tel: fax: Referral ID Status Reason Start Date Expiration Date Visits Requested Visits Authorized [id number] Pending Review Consult and Treat 4 12/18/2024 1 1 [facility] Summary Purpose Family History No Family History Records Found Relationship Condition Age at Onset Recorded Date/T robinson brother Heart disease Unknown Malignant neoplasm Unknown Family history of mental disorder Unknown daughter Family history of mental disorder Unknown father Unknown Heart disease Unknown family member Unknown Not Specified Aneurysm Unknown Unknown Relationship Condition Age at Onset Recorded Date/T robinson brother Heart disease Unknown Malignant neoplasm Unknown Family history of mental disorder Unknown daughter Family history of mental disorder Unknown father Unknown Heart disease Unknown family member Unknown mother Aneurysm Unknown Unknown Advance Directives No Advanced Directives Records Found Advance Directive Response Recorded Date/ Time Advance Directives No June 11:52am Advance Directive Response Recorded Date/ Time Advance Directives No June 10:52am Chief Complaint and Reason for Visit Chief Complaint N18.4 I12.9 N39.0 N2 8.1 E55.9 Chief Complaint g25.81 e03.8 n18.4 i 12.9 n39.0 n28.1 e55.9 Chief Complaint g25.81 e03.8 n18.4 i 12.9 n39.0 n28.1 e55.9 N64.4 Chief Complaint n18.4 i12.9 n39.0 n2 8.1 e55.9 e83.52 Chief Complaint Spot on face-Bleedin g Chief Complaint Spot on face-Bleedin g n18.4 z12.9 n28.1 e55.9 e83.52 n39.0 e79.0 RENAL 6 month Follow up Screening Reason for Visit Postoperative bleedi ng from incision 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 CKD (chronic kidney disease) stage 4, GFR 15-29 ml/min Gout Hyperglyceridemia Renal cyst Chief Complaint Spot on face-Bleedin g n18.4 z12.9 n28.1 e55.9 e83.52 n39.0 e79.0 RENAL 6 month Follow up Screening UA-Burning, Pain, Frequency Reason for Visit Postoperative bleedi ng from incision 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 CKD (chronic kidney disease) stage 4, GFR 15-29 ml/min Gout Hyperglyceridemia Renal cyst Chief Complaint UA, burning, frequen cy Chief Complaint UA, burning, frequen cy 4 month follow up Reason for Visit CKD (chronic kidney disease) stage 4, GFR 15-29 ml/min HTN (hypertension) Hypothyroidism Restless leg syndrome Chief Complaint UA, burning, frequen cy 4 month follow up i10 e03.9 n18.4 Reason for Visit CKD (chronic kidney disease) stage 4, GFR 15-29 ml/min HTN (hypertension) Hypothyroidism Restless leg syndrome Chief Complaint UA, burning, frequen cy 4 month follow up i10 e03.9 n18.4 n28.1 i12.9 n18.4 m10.9 Reason for Visit CKD (chronic kidney disease) stage 4, GFR 15-29 ml/min HTN (hypertension) Hypothyroidism Restless leg syndrome Chief Complaint UA, burning, frequen cy 4 month follow up i10 e03.9 n18.4 n28.1 i12.9 n18.4 m10.9 RENAL 6 MONTH F/U Reason for Visit CKD (chronic kidney disease) stage 4, GFR 15-29 ml/min HTN (hypertension) Hypothyroidism Restless leg syndrome 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 CKD (chronic kidney disease) stage 4, GFR 15-29 ml/min Gout Hyperglyceridemia Renal cyst Chief Complaint Admit Date CC Adult Risk Stratification June 3:19pm 3 month f/u June 17, 2024 1 2:57pm G30.1 F02.A0 August 17, 2024 1 0:21am Reason for Visit Admit Date CKD (chronic kidney disease) stage 4, GF R 15-29 ml/min June 17, 2024 12:57pm HTN (hypertension) June 17, 2024 1 2:57pm Memory changes June 17, 2024 1 2:57pm Restless leg syndrome June 17, 2024 12:57pm Chief Complaint Admit Date CC Adult Risk Stratification June 3:19pm 3 month f/u June 17, 2024 1 2:57pm G30.1 F02.A0 August 17, 2024 1 0:21am fever, not feeling well August 18 10:11am Reason for Referral Reason 09/23/22 @ 10 Freq uent UTIs Diagnosis 1 Frequent UTI (N39.0) Referral Organization [facility] Referring Provider First Name David Referring Provider Last Name Glendy Referring Provider Specialty Family [facility] Referred Organization [facility] Referred Provider FRED CHARLES Referred Address [address],[place], [place],[address] Referred Provider Specialty Urology Referral Priority Routine Referral Appointment Date 2022-09-23 General Notes Anjelica Cavazos 03:41:16 PM >received today, notes locked, insurance card attached, referral faxed Yosephhangjermaine Anjelica 09/22/2022 10:18:57 AM >faxed first attempt letter Anjelica Cavazos 09/23/2022 08:01:09 AM >RECEIVED FAX WITH APPT DATE AND TIME Dirk Anjelica 09/24/2022 04:56:46 PM >faxed first request for consult notes Anjelica Cavazos 09/26/2022 04:08:05 PM >RECEIVED NOTES AND SENT TO DR. PIKE FOR REVIEW. CLOSING AT THIS TIME Additional Source Comments INFORMATION SOURCE (unrecogn ized section and content) DATE CREATED AUTHOR 10/08/2018 [facility] DATE CREATED AUTHOR AUTHOR'S ORGANIZ ATION 10/20/2018 [facility] DATE CREATED AUTHOR AUTHOR'S ORGANIZ ATION 03/21/2022 [facility] DATE CREATED AUTHOR AUTHOR'S ORGANIZ ATION 10/03/2022 [facility] DATE CREATED AUTHOR AUTHOR'S ORGANIZ ATION 11/04/2022 [facility] DATE CREATED AUTHOR AUTHOR'S ORGANIZ ATION 08/19/2024 [facility] EP[facility] DATE CREATED AUTHOR AUTHOR'S ORGANIZ ATION 08/19/2024 [facility] REASON FOR VISIT (unrecogniz ed section and content) CKDCKDLeft BreastCKD and HTN labsReview ResultsRefillsmessageCHECK UPURINE SPECIMENCKD and HTNstitch removalRESTLESS LEGSHEAD COLD - TESTING FOR COVIDrefillRefillwellness Care Teams (unrecognized sec tion and content) Team Status: Active Member Role Status Dates David Pike MD Primary Care Provider Active Team Status: Active Member Role Status Dates David Pike MD Primary Care Provide r, Attending Provider Active Start: June 14, 2024 Team Status: Inactive Member Role Status Dates David Pike MD Primary Care Provide r, Attending Provider Active Start: June 17, 2024 End: June 17, 2024 Team Status: Inactive Member Role Status Dates David Pike MD Primary Care Provider Active Start: August 17, 2024 End: August 17, 2024 Rosie Jones DO Attending Provider Active Start: August 17, 2024 End: August 17, 2024 Team Status: Inactive Member Role Status Karina Pike MD Primary Care Provider Active Deepa Hendrickson MD Attending Provider Active Team Status: Inactive Member Role Status Karina Pike MD Primary Care Provider, Other Provi anthony Active Deepa Hendrickson MD Attending Provider Active Team Status: Inactive Member Role Status Karina Pike MD Primary Care Provider, Attending Clarisse cardona Active Team Status: Inactive Member Role Status Karina Pike MD Primary Care Provide r, Attending Provider Active Start: September 04, 2023 End: September 04, 2023 Team Status: Inactive Member Role Status Karina Pike MD Primary Care Provider Active Start: September 07, 2023 End: September 07, 2023 Deepa Hendrickson MD Attending Provider Active Start : September 07, 2023 End: September 07, 2023 Team Status: Inactive Member Role Status Karina Pike MD Primary Care Provider Active Start: September 17, 2023 End: September 17, 2023 Deepa Hendrickson MD Attending Provider Active Start : September 17, 2023 End: September 17, 2023 Team Status: Inactive Member Role Status Karina Pike MD Primary Care Provide r, Attending Provider Active Start: October 05, 2023 End: October 05, 2023 Team Status: Inactive Member Role Status Karina Pike MD Primary Care Provider Active Start: October 09, 2023 End: October 09, 2023 Shonna Villeda APRN [employer] Attending Provider Act tri Start: October 09, 2023 End: October 09, 2023 Team Status: Inactive Member Role Status Karina Pike MD Primary Care Provider Active Start: March 11, 2024 End: March 11, 2024 Abdias Edwards DO Attending Provider Active Sta rt: March 11, 2024 End: March 11, 2024 Team Status: Inactive Member Role Status Karina Pike MD Primary Care Provide r, Attending Provider Active Start: March 16, 2024 End: March 16, 2024 Team Status: Inactive Member Role Status Karina Pike MD Primary Care Provide r, Attending Provider Active Start: March 18, 2024 End: March 18, 2024 Team Status: Inactive Member Role Status Karina Pike MD Primary Care Provider Active Start: March 28, 2024 End: March 28, 2024 Deepa Hendrickson MD Attending Provider Active Start : March 28, 2024 End: March 28, 2024 Team Status: Inactive Member Role Status Dates David Pike MD Primary Care Provider Active Start: March 29, 2024 End: March 29, 2024 Deepa Hendrickson MD Attending Provider Active Start : March 29, 2024 End: March 29, 2024 Grinder Set Up Operator Jig Relationship Specialty Start Date End Date David Pike MD [address] [place] [address] PCP - General Family Medicine 06/28/24 Grinder Set Up Operator Jig Relationship Specialty Start Date End Date David Pike MD [address] [place] [id number] PCP - General Family Medicine 06/28/24 Team Status: Inactive Member Role Status Dates David Pike MD Primary Care Provide r, Attending Provider Active Start: August 18, 2024 End: August 18, 2024 Goals (unrecognized section and content) Goals may be documented in a n alternate section FOR RECORDS PERTAINING TO PATIENTS WHO ARE OR HAVE BEEN ENROLLED IN A CHEMICAL DEPENDENCY/SUBSTANCEABUSE PROGRAM, SOME INFORMATION MAY BE OMITTED. This clinical summary was aggregated from multiple sources. Caution should be exercised in using it in the provision of clinical care. This summary normalizes information from multiple sources, and as a consequence, information in this document may materially change the coding, format and clinical context of patient data. In addition, data may be omitted in some cases. CLINICAL DECISIONS SHOULD BE BASED ON THE PRIMARY CLINICAL RECORDS. [employer] [facility]. provides no warranty or guarantee of the accuracy or completeness of information in this document.
== END 2024-09-12 12:23 | disposition home or self-care (01) ==
LOC: EC 12:22
PROVIDERS: PCP Family Medicine; Visit Provider Orthopaedic Surgery
DX: S42.294D Other nondisplaced fracture of upper end of right humerus, subsequent encounter for fracture with routine healing (principal)
CPT/HCPCS: 73030

== ENCOUNTER 2024-10-10 11:43 | Outpatient (OUT) | payer MEDICARE, SELFPAY ==
--- NOTE | 2024-10-10 11:44 | XR_ITS ---
[place] [id number] Patient Name: THANIA FRANK MRN: [id number] date: 1940 Sex: F Assigned Patient Location: Current Patient Location: Accession/Order Number: [id number] Exam Date: 10/10/2024 13:52 Report Date: 10/10/2024 13:53 At the request of: JONATAN ECHEVARRIA MD Procedure: XR shoulder RT min 2V 3 views right shoulder plain film HISTORY: Follow-up right shoulder fracture COMPARISON: 09/12/2024 ACUTE FINDINGS: An developing callus formation. Stable alignment DEGENERATIVE CHANGE: Unremarkable SOFT TISSUE FINDINGS: Unremarkable JOINT EFFUSION: None POSTOP CHANGES: None BONY MINERALIZATION: Adequate XR/XR shoulder RT min 2V IMPRESSION: Healing proximal right humerus fracture with stable alignment Impression dictated by: Isael Alexander M.D.10/10/2024 1:53 PM Dictation Location: [place] [address] Electronically authenticated by: [id number] Y Date: 10/10/2024 13:53
== END 2024-10-10 11:44 | disposition home or self-care (01) ==
LOC: EC 11:43
PROVIDERS: PCP Family Medicine; Visit Provider Orthopaedic Surgery
DX: S42.294D Other nondisplaced fracture of upper end of right humerus, subsequent encounter for fracture with routine healing (principal)
CPT/HCPCS: 73030

== ENCOUNTER 2024-11-07 10:34 | Outpatient (OUT) | payer MEDICARE, SELFPAY ==
--- NOTE | 2024-11-07 | XR_ITS ---
[address] [address] Patient Name: THANIA FRANK MRN: [id number] date: 1940 Sex: F Assigned Patient Location: Current Patient Location: Accession/Order Number: [id number] Exam Date: 11/07/2024 15:41 Report Date: 11/07/2024 15:46 At the request of: JONATAN ECHEVARRIA MD Procedure: XR shoulder RT min 2V RIGHT SHOULDER - - 3 views CLINICAL HISTORY: S42.294D nondisplaced fracture of upper end of right humerus COMPARISON: Right shoulder series 10/10/2024 FINDINGS: Right humeral head/neck fracture grossly unchanged alignment with interval callus formation suggestive of healing response. XR/XR shoulder RT min 2V IMPRESSION: HEALING RIGHT HUMERAL HEAD/NECK FRACTURE. Impression dictated by: Holland Lopez Jr., D.O. 11/07/2024 3:46 PM Dictation Location: [place] [address] Electronically authenticated by: [id number] Y Date: 11/07/2024 15:46
== END 2024-11-07 10:35 | disposition home or self-care (01) ==
LOC: EC 10:34
PROVIDERS: PCP Family Medicine; Visit Provider Orthopaedic Surgery
DX: S42.294D Other nondisplaced fracture of upper end of right humerus, subsequent encounter for fracture with routine healing (principal)
CPT/HCPCS: 73030

== ENCOUNTER 2025-03-09 21:20 | Emergency (ER) | payer MEDICARE, SELFPAY ==
[2025-03-09] VITALS (14 sets, daily range): BP systolic 129–144; BP diastolic 71–79; PULSE 68–78; TEMP 37.3; O2SAT 91–99; BMI 29.3
--- OUTSIDE RECORDS SUMMARY | 2025-03-09 21:28 | XMS_ITS | CCD ---
Author Organization [facility] Care Team Providers Care Assistant Manager Retail Name Role Phone DAVID PIKE Primary Care Unavailable PEREZ JAMES Admitting Unavailable PEREZ JAMES Attending Unavailable PHYSICIAN, DEFAULT Admitting Unavailable PHYSICIAN, DEFAULT Attending Unavailable PHYSICIAN, DEFAULT Admitting Unavailable PHYSICIAN, DEFAULT Attending Unavailable Deepa Hendrickson Unavailable MD David Pike Primary Care Provider MD Deepa Hendrickson Attending Provider GLENDY, DR DAVID Quarles Admitting Unavailable MISC, DR JACOBSON Primary Care Unavailable GLENDY, DR DAVID Quarles Attending Unavailable PIKE, DR [...] Unavailable GLENDY, DR DAVID Quarles Attending Unavailable PIKE, DR DAIVD Quarles Consulting Unavailable KAMALA HEBERT Admitting Unavailable MISC, DR JACOBSON Primary Care Unavailable KAMALA HEBERT Attending Unavailable KAMALA HEBERT Consulting Unavailable MD David Pike Primary Care Provider [phone] MD David Pike Other Provider MD Deepa Hendrickson Attending Provider DAVID PIKE Primary Care Physician David Pike Unavailable MD David Pike Attending Provider SHONNA MO Attending Unavailable SHONNA MO Attending Unavailable SHONNA MO Admitting Unavailable MD David Pike Primary Care Provider MD Deepa Hendrickson Attending Provider MD David Pike Primary Care Provider MD Deepa Hendrickson Attending Provider [phone] MD David Pike Attending Provider MD David Pike Primary Care Provider MD David Pike Attending Provider MD Deepa Hendrickson Attending Provider [phone] David Pike MD Primary Care Provider David Pike MD Primary Care Provider Rosie Jones DO Attending Provider [phone] ROSIE JONES Attending Unavailable DAVID PIKE Unavailable SCOTT CASTELLANO Attending Unavailable Daivd Pike MD Primary Care Provider Deepa Hendrickson MD Attending Provider Rosie Jones DO Attending Provider David Pike MD Attending Provider David Pike MD Attending Provider [place] B[employer]PERATOR-CInessa Attending Provider Deepa Hendrickson Attending Unavailable Deepa Hendrickson Admitting Unavailable David Pike Primary Care Unavailable Rosie Jones Attending Unavailab Rosie Cullen Admitting Unavailab David Mcpherson Primary Care Unavailable Rosie Jones Attending Unavailab Rosie Cullen Admitting Unavailab le David Pike Primary Care Unavailable David Pike Admitting Unavailable David Pike Attending Unavailable David Pike Admitting Unavailable David Pike Attending Unavailable David Pike Attending Unavailable David Pike Admitting Unavailable Smith Pikeia E Primary Care Unavailable Deepa Hendrickson Attending Unavailable Deepa Hendrickson Admitting Unavailable David Pike Primary Care Unavailable Max Shah Attending Unavailable Allergies Allergy Classification Reported Allergen(s) Allergy Type Date of Onset Reaction(s) Facility (11 sources) Antihistamines Propensity to adverse reactions Unknown [employer] Other (17 sources) fesoterodine Drug Allergy Unknown [employer] Other (17 sources) FLUoxetine Drug Allergy Unknown [facility] Other (20 sources) Hmg-Coa Reductase Inhibitors (Statins); Translations: [HMG-CoA reductase inhibitor (substance)] Propensity to adverse reactions 10-04-19 Unknown (qualifier value), Unknown [facility] (20 sources) Nitrofurantoin Drug Allergy 09-04-19 Unknown [facility] (17 sources) Penicillins (Antibiotic) Propensity to adverse reactions Unknown [employer] Other (20 sources) DECONGESTANTS Propensity to adverse reactions 09-04-19 Unknown, [facility] (1 source) black walnut pollen extract Drug Allergy 07-23-19 20 [facility] (19 sources) Penicillins; Translations: [penicillins] Drug allergy (disorder) 01-06-20 13 itching/rash, Hives [facility] (1 source) Antihistamines - Alkylamine Drug allergy (disorder) 07-13-19 03 [facility] (1 source) Decongest Multi-Action Drug allergy (disorder) 07-13-19 13 [facility] (3 sources) NITROFURANTOIN, MACROCRYSTALS / Nitrofurantoin, Monohydrate; Translations: [nitrofurantoin] Drug Allergy Diarrhea (finding) [facility] (6 sources) Pseudoephedrine; Translations: [pseudoephedrine] Drug Allergy Eruption of skin (disorder) [facility] (3 sources) antihistamine/deco ngestants; Translations: [antihistamine/dec ongestants] Drug allergy itching/hives [facility] (9 sources) fexofenadine / Pseudoephedrine Drug Allergy Unknown [facility] Other (9 sources) Penicillin G Benzathine & Proc Drug allergy Unknown [facility] Other (15 sources) fesoterodine Drug Allergy 09-04-19 [facility] (15 sources) FLUoxetine Drug Allergy 09-04-19 [facility] (15 sources) Penicillin G Benzathine Allergy to substance 09-04-19 [facility] (15 sources) Mxbqjix-SWE-ErQ Reductase Inhibitor Allergy to substance 09-04-19 [facility] (15 sources) Antihistamine & Nasal Deconges Allergy to substance 09-04-19 [facility] (3 sources) diphenhydrAMINE Drug Allergy 10-04-19 [facility] (3 sources) Penicillins Drug Intolerance 10-05-19 19 [facility] (3 sources) Pseudoephedrine Drug Allergy 10-04-19 24 [facility] Medications Current Medications Medication Drug Class(es) Dates Sig (Normalized) Sig (Original) amitriptyline hydrochloride 10 mg oral tablet (20 sources) Tricyclic Antidepressant Start: 03-29-2024 End: 12-22-2024 take 1 tablet by mouth once daily Start: 03-11-2024 End: 03-29-2024 take 1 tablet by mouth once daily at bedtime Amitriptyline 10 mg tablet Discontinued 0 .ROUTE .COMPLEX 90 March 11, 2024 10:09pm March 29, 2024 9:16am TAKE 1 TABLET BY MOUTH EVERYDAY AT BEDTIME Start: 09-04-2023 End: 03-11-2024 take 1 tablet by mouth once daily at bedtime Amitriptyline 10 mg tablet Discontinued 10 MG PO Daily at bedtime September 17, 2023 11:12am March 11, 2024 10:09pm Start: 06-22-2019 take 1 tablet by lily [...] 1 capsule Orally twice a day Active Calcium (2 sources) Phosphate Binder, Calcium Start: 06-11-20 15 take 1 tablet by mouth at bedtime Calcium 600+D 1 tablet, Oral, Bedtime, Refill(s) 0, Prophylaxis Start Date: 06/11/15 Status: Ordered Calcium 500+D3 500-400 MG-UNIT (1 source) take 1 tablet by mouth once daily Calcium 500+D3 500-400 MG-UNIT 1 tablet with a meal Orally Once a day Active calcium carbonate 1500 mg oral tablet (2 sources) Start: 08-14-19 16 calcium (as carbonate) 600 mg oral tablet 1,200 mg = 2 tab(s), Oral, Daily, Refills(s) 0, Prophylaxis Start Date: 08/14/15 Status: Ordered cholecalciferol 0.125 mg oral capsule (17 sources) Vitamin D Start: 09-04-19 24 take 1 capsule by mouth once daily take 1 tablet by mouth once teri y cholecalciferol (Vitamin D-3) 25 MCG (1000 UT) tablet Take 1,000 Units by mouth Daily Active chondroitin sulfates 40 mg/ml / glucosamine hydrochloride 50 mg/ml oral solution (3 sources) Glucosamine-Isaac droitin 0390-6945 MG/30ML liquid 1 (one) time each day at the same time Active ciprofloxacin 250 mg oral tablet (15 sources) Quinolone Antimicrobial Start: 2024 take 1 tablet by mouth twice daily Start: 03-11-2024 End: 03-16-2024 take 1 tablet by mouth once daily Ciprofloxacin Hcl 500 mg tablet Discontinued 500 MG PO Daily 11 14March 11, 2024 12:00am March 16, 2024 10:31am Start: 03-25-2023 take 1 tablet by lily every twelve hours Ciprofloxacin HCl 250 MG 1 tablet Orally every 12 hrs for 7 days Mar, Active clonazePAM 0.5 mg oral tablet (15 sources) Benzodiazepine Start: 03-10-2023 take 1 tablet by mouth once daily clonazePAM 0.5 MG TAKE 1 TABLET BY MOUTH EVERY DAY for Feb, Active Start: 11-11-2022 take 1 tablet by lily th once daily clonazePAM 0.5 MG TAKE 1 TABLET BY MOUTH EVERY DAY for November, Active Start: 06-11-2015 take 1 tablet by lily th once daily clonazePAM 0.5 MG TAKE 1 TABLET BY MOUTH EVERY DAY for Jul, Active clopidogrel 75 mg oral tablet (2 sources) P2Y12 Platelet Inhibitor Start: 02-07-2025 take 1 tablet by mouth once daily Cranberry (20 sources) Non-Standardized Food Allergenic Extract, Non-Standardized Plant Allergenic Extract Start: 03-29-2024 take 1 capsule by mouth once Cranberry 500 mg capsule Active 500 MG PO Once March 29, 2024 9:10am Complies with drug therapy Start: 03-29-2024 take 1 capsule by mouth once Start: 03-29-2024 take 1 capsule by mouth once C ranberry 500 mg capsule Active 500 MG PO Once March 29, 2024 8:10am Start: 03-29-2024 take 500 mg by mouth once Cran herrera Active 500 MG PO Once March 29, 2024 9:10am Start: 09-17-2023 End: 03-29-2024 take 1 capsule by mouth twice daily Cranberry 500 mg capsule Discontinued 500 MG PO Twice daily September 17, 2023 11:13am March 29, 2024 9:14am Start: 09-17-2023 End: 03-29-2024 take 1 capsule [...] September 17, 2023 11:17am administer with meals Start: 09-04-2023 End: 09-17-2023 take 1 capsule [...] (20 sources) Estrogen Start: 09-04-2023 End: 09-17-2023 estradiol (Estra ce) 0.1 MG/GM vaginal cream [...] take 1 tablet by mouth once daily Start: 09-17-2023 End: 11-25-2023 take 1 tablet by mouth twice daily Gemfibrozil 600 mg tablet Discontinued 600 MG PO Twice daily September 17, 2023 11:13am November 25, 2023 8:56am Start: 09-04-2023 End: 09-17-2023 Gemfibrozil 600 mg tablet Discontinued MG PO September 04, 2023 1:00am September 17, 2023 11:17am [employer] tablet 30 minutes before morning and [...] A DAY Active glucosamine sulfate 500 mg o ral tablet (20 sources) Start: 12-22-2024 take 2 tablets by mo [facility] once daily Start: 09-04-2023 End: 12-22-2024 take 1 tablet by mouth once daily Glucosamine Sulfate (Glucosamine) 500 mg tablet Discontinued 500 MG PO Daily September 17, 2023 11:14am December 22, 2024 3:36pm Glucosamine Chond Complex/MSM - (17 sources) Glucosamine Isaac d Complex/MSM - as directed Orally Active hydroCHLOROthiazide 12.5 mg oral tablet (7 sources) Thiazide Diuretic Start: 2019 hydrochlorothiazide 12.5 mg Tab Refills(s) 0 Start Date: 02/06/20 Status: Ordered hydroCHLOROthiazide 25 mg / lisinopril 20 mg oral tablet (3 sources) Thiazide Diuretic, Angiotensin Converting Enzyme Inhibitor take 2 tablets by mouth once daily lisinopril-hydroCHLOROth iazide 20-25 MG tablet Take 2 tablets by mouth Daily Active ketoconazole 20 mg/ml topical cream (20 sources) Azole Antifungal Start: 2023 End: 2023 Start: 09-04-2023 End: 09-17-2023 Ketoconazole 2 % cream Disco ntinued 1 APPLIC TOPICAL Daily September 04, 2023 1:00am September 17, 2023 11:17am [employer] application Externally Once a day; Note: Source Status: Taking; Provider: Glendy Meade ( ) Ketoconazole 2 % 1 application Externally Once a day Active Ketoconazole 2 % 1 application Externally Once a day Active levothyroxine sodium 0.088 m g oral tablet (20 sources) l-Thyroxine Start: 06-13-2024 End: 08-29-2024 take 1 tablet by mouth once daily in the morning Start: 03-29-2024 End: 06-13-2024 take 1 tablet by mouth once daily Levothyroxine 88 mcg tablet Discontinued 88 MCG PO Daily March 29, 2024 9:15am June 13, 2024 1:39pm Start: 03-18-2024 End: 03-29-2024 take 1 tablet by mouth once daily in the morning Levothyroxine 88 mcg tablet Discontinued 0 .ROUTE .COMPLEX 90 March 18, 2024 11:20pm March 29, 2024 9:16am TAKE 1 TABLET BY MOUTH EVERY MORNING ON AN EMPTY STOMACH Start: 12-01-2023 End: 03-18-2024 take 1 tablet by mouth once daily in the morning Levothyroxine 75 mcg tablet Discontinued 0 .ROUTE .COMPLEX 90 January 11, 2024 8:33am March 18, 2024 11:20pm TAKE 1 TABLET BY MOUTH EVERY MORNING ON AN EMPTY STOMACH Start: 09-04-2023 End: 12-01-2023 take 1 tablet by mouth once daily Levothyroxine 75 mcg tablet Discontinued 75 MCG PO Daily September 17, 2023 11:14am December 01, 2023 10:00am Start: 06-22-2019 levothyroxine 50 microgram, Oral, Daily, Refills(s) 0, Thyroid Start Date: 06/22/19 Status: Ordered take 1 tablet by lily th once daily levothyroxine (Synthroid, Levoxyl) 50 MCG tablet Take 1 tablet every day by oral route for 90 days. Active take 1 tablet by lily th once daily in the morning Levothyroxine Sodium 75 MCG 1 tablet in the morning on an empty stomach Orally Once a day for 90 days Active take 1 tablet by lily th once daily in the morning Levothyroxine Sodium 50 MCG 1 tablet in the morning on an empty stomach Orally Once a day Active lisinopril 20 mg oral tablet (20 sources) Angiotensin Converting Enzyme Inhibitor Start: 08-01-2024 take 1 tablet by mouth once daily Start: 09-04-2023 End: 08-01-2024 take 1 tablet by mouth once daily Lisinopril 20 mg tablet Discontinued 20 MG PO Daily September 17, 2023 11:14am August 01, 2024 3:50pm Start: 05-25-2019 take 1 tablet by lily [...] take 1 tablet by mouth once daily Start: 09-04-2023 End: 09-17-2023 Magnesium Oxide 400 mg (241. 3 mg magnesium) tablet Discontinued MG PO As Directed September 04, 2023 1:00am September 17, 2023 11:17am FreeTextSig: as directed Orally; Note: Source Status: Taking; Provider: Glendy Meade ( ) magnesium oxide (Mag-Ox) 400 mg tablet 400 mg Daily Active methenamine hippurate 1000 m g oral tablet (20 sources) Start: 09-04-2023 End: 09-17-2023 take 1 tablet by lily every twenty-four hours Methenamine Hippurate 1 GM 1 tablet Orally ONCE A Day Active take 1 tablet by lily every twenty-four hours Methenamine Hippurate 1 GM 1 tablet Orally ONCE A Day Active Multivitamin (Daily Multi-Vitamin) tablet (14 sources) Start: 09-04-2023 take 1 tablet by mouth once daily Multivitamin (Daily Multi-Vitamin) tablet Active 1 TAB PO Daily September 04, 2023 1:00am Complies with drug therapy Start: 09-04-2023 take 1 tablet by lily once daily Start: 09-04-2023 take 1 tablet by lily once daily Multivitamin (Daily Multi-Vitamin) tablet Active 1 TAB PO Daily September 04, 2023 12:00am Start: 09-04-2023 take 1 tablet by lily once daily Multivitamin (Daily Multi-Vitamin) tablet Active [...] 0, Prophylaxis Start Date: 06/11/15 Status: Ordered Ryde 7-Llc-Pfl-Fish Oil (Fish Oil) 1,000 mg (120 mg-180 mg) capsule (8 sources) Start: 4 take 1 capsule by mouth once daily Ryde 5-Iix-Nbt-Fish Oil (Fish Oil) 1,000 mg (120 mg-180 mg) capsule Active 1 CAP PO Daily March 29, 2024 12:00am Complies with drug therapy Start: 03-29-2024 take 1 capsule by mo uth once daily Start: 03-29-2024 take 1 capsule by mo uth once daily Ryde 7-Xqf-Axj-Fish Oil (Fish Oil) 1,000 mg (120 mg-180 mg) capsule Active 1 CAP PO Daily March 28, 2024 11:00pm Start: 03-29-2024 take 1 capsule by mo uth once daily Ryde 7-Voj-Gxb-Fish Oil (Fish Oil) 1,000 mg (120 mg-180 mg) capsule Active 1 CAP PO Daily March 29, 2024 12:00am Ryde-3 Fatty Acids (Fish Oil) 1200 MG capsule delayed-release (3 sources) take 1 capsule by mouth once daily Ryde-3 Fatty Acids (Fish Oil) 1200 MG capsule delayed-release Take 1 capsule by mouth Daily Active omeprazole 20 mg delayed release oral capsule (4 sources) Proton Pump Inhibitor Start: 05-25-20 19 take 1 capsule by mouth once daily in the morning omeprazole 20 mg Cap-DR 20 mg = 1 cap(s), Oral, qAM, # 30 cap(s), Refills(s) 11, Pharmacy: [facility]/pharmacy #[id number] Start Date: 05/25/19 Status: Ordered potassium 99 mg extended release oral tablet (14 sources) take 1 tablet by mouth once daily Potassium 99 MG 1 tablet Orally Once a day Active potassium gluconate 2.5 meq oral tablet (20 sources) Start: 09-04-19 End: 09-17-19 take 1 tablet by mouth once daily Start: 09-04-2023 End: 09-17-2023 take 1 tablet by mouth once daily Potassium Gluconate 595 mg (99 mg) tablet Discontinued 1 TAB PO Daily September 04, 2023 1:00am September 17, 2023 11:17am FreeTextSi tablet Orally Once a day; Note: [...] (20 sources) Nonergot Dopamine Agonist Start: 07-11-2024 End: 01-16-2025 take 1 tablet by mouth once daily Start: 09-17-2023 End: 11-25-2023 take 2 tablets by mouth once daily at bedtime Ropinirole 0.5 mg tablet Discontinued 1 MG PO Daily at bedtime September 17, 2023 11:16am November 25, 2023 8:58am Start: 09-04-2023 End: 09-17-2023 take 1 tablet by mouth once daily at bedtime Ropinirole 0.5 mg tablet Discontinued 1 MG PO Daily at bedtime September 17, 2023 10:22am September 17, 2023 11:17am FreeTextSi tablet 1 to 3 hours before [...] 1 MG PO Daily September 17, 2023 1:00am November 25, 2023 9:08am Start: 09-15-2022 take 1 tablet by lily once daily at bedtime rOPINIRole HCl 0.5 MG 1 tablet 1 to 3 hours before bedtime Orally Once a day for 30 days Sep, Active Start: 09-15-2022 take 1 tablet by lily once daily at bedtime rOPINIRole HCl 0.25 MG 1 tablet 1 to 3 hours before bedtime Orally Once a day for 30 days Sep, Active take 1 tablet by lily once daily at bedtime rOPINIRole HCl 0.25 MG 1 tablet 1 to 3 hours before bedtime Orally Once a day Active therapeutic multivitamin-minerals (Theragran-M) tablet (3 sources) take 1 tablet by mouth once daily therapeutic multivitamin-minerals (Theragran-M) tablet Take 1 tablet by mouth Daily Active Vit C,V-Rm-Hyfzs-Lutein-Zeax an (Preservision Areds-2) 250-90-40-1 mg tablet,chewable (14 sources) Start: Vit C,B-Ec-Fzapg-Lutein-Zeaxan (Preservision Areds-2) 250-90-40-1 mg tablet,chewable Active 1 TAB PO Twice daily September 04, 2023 1:00am Complies with drug therapy Start: 09-04-2023 Start: 09-04-2023 Vit C,E-Zn-Director Client Services vu-Izremr-Wdyhfc (Preservision Areds-2) 250-90-40-1 mg tablet,chewable Active 1 TAB PO Twice daily September 04, 2023 12:00am Start: 09-04-2023 Vit C,E-Zn-Director Client Services qh-Enlcef-Vuirch (Preservision Areds-2) 250-90-40-1 mg tablet,chewable Active 1 [...] 2024 9:28am Start: 03-29-2024 End: 03-29-2024 take 10 mg by mouth once daily Amlodipine Discontinued 10 MG PO Daily March 29, 2024 9:26am March 29, 2024 9:28am Start: 03-29-2024 End: 03-29-2024 take 7.5 mg by mouth once daily Amlodipine 5 mg tablet Discontinued 7.5 MG PO Daily March 29, 2024 9:15am March 29, 2024 9:27am Start: 03-29-2024 End: 03-29-2024 take 7.5 mg by mouth once daily Amlodipine Discontinue d 7.5 MG PO Daily March 29, 2024 9:15am March 29, 2024 9:27am Start: 03-29-2024 take 1 tablet by lily th once daily Start: 01-04-2024 End: 03-29-2024 Amlodipine 5 mg tablet Disco ntinued 0 .ROUTE .COMPLEX 135 March 10, 2024 5:46pm March [...] 17, 2023 11:12am January 04, 2024 2:29pm Start: 09-04-2023 End: 09-17-2023 take 1 tablet by mouth once daily Amlodipine 5 mg tablet Discontinued 7.5 MG PO Daily 135 September 17, 2023 10:45am September 17, 2023 11:17am FreeTextSi tablet Orally Once a day; Note: Source Status: Taking; Refills: 3; Qty: 90 Tablet; Provider: Glendy Quarles Start: 09-04-2023 End: 01-04-2024 take 7.5 mg by mouth once daily Amlodipine Discontinue d 7.5 MG PO Daily September 17, 2023 11:12am January 04, 2024 2:29pm aspirin 81 mg delayed release oral tablet (20 sources) Platelet Aggregation Inhibitor, Nonsteroidal Anti-inflammatory Drug Start: 09-04-2023 End: 02-07-2025 take 1 tablet by mouth once daily Aspirin 81 mg tablet,delayed release (DR/EC) Discontinued 81 MG PO Daily September 17, 2023 11:12am February 07, 2025 6:26pm Start: 06-11-2015 take 1 tablet by lily [...] 1 tablet Orally Once a day Active azithromycin 250 mg oral tablet (18 sources) Macrolide Antimicrobial Start: 09-04-2023 End: 09-17-2023 take 2 tablets by mouth once daily, then take 1 tablet by mouth once daily Azithromycin 250 mg tablet Discontinued TAB PO Daily September 04, 2023 1:00am September 17, 2023 10:21am FreeTextSig: as directed Orally 2 tabs po today, then 1 tab daily x 4 more days; Note: Source Status: Start; Refills: 0; Provider: Glendy Quarles Start: 05-06-2023 Azithromycin 2 50 MG as directed Orally 2 tabs po today, then 1 tab daily x 4 more days for 5 Apr, Active Ryde 9-Gyh-Gjx-Fish Oil (Fish Oil) 60-90-500 mg capsule (14 sources) Start: 09-04-2023 End: 11-25-2023 take 1 capsule by mouth once daily Ryde 0-Bjw-Qrr-Fish Oil (Fish Oil) 60-90-500 mg capsule Discontinued 1 CAP PO Daily September 04, 2023 12:00am November 25, 2023 7:58am Start: 09-04-2023 End: 11-25-2023 take 1 capsule by mouth once daily Ryde 9-Avy-Qks-Fish Oil (Fish Oil) 60-90-500 mg capsule Discontinued 1 CAP PO Daily September 04, 2023 1:00am November 25, 2023 8:58am Start: 09-04-2023 take 1 capsule by [facility] once daily Ryde 0-Kre-Eao-Fish Oil (Fish Oil) 60-90-500 mg capsule Active 1 CAP PO Daily September 04, 2023 1:00am oseltamivir 30 mg oral capsule (6 sources) Neuraminidase Inhibitor Start: 08-18-2024 End: 12-22-2024 take 1 capsule by mouth twice daily Oseltamivir (Tamiflu) 30 mg capsule Discontinued 30 MG PO Twice daily 10 August 18, 2024 1:00am December 22, 2024 3:31pm sulfamethoxazole 800 mg / trimethoprim 160 mg oral tablet (5 sources) Dihydrofolate Reductase Inhibitor Antibacterial, Sulfonamide Antimicrobial Start: 01-24-2025 End: 01-27-2025 take 1 tablet by mouth twice daily Sulfamethoxazole- Trimethoprim 800-160 mg tablet Discontinued 1 TAB PO Twice daily January 24, 2025 12:00am January 27, 2025 1:26pm vitamin e 180 mg oral capsule (20 sources) Start: 09-04-2023 End: 11-25-2023 take 1 capsule by mouth once daily Vitamin E (Dl, Acetate) 180 mg (400 unit) capsule Discontinued 180 MG PO Daily September 17, 2023 11:17am November 25, 2023 8:58am take 1 capsule by [facility] every twenty-four hours Vitamin E 400 UNIT 1 capsule Orally Once a day Active Problems Active Problems Problem Classification Problem Date Documented Da te Episodic/Chronic Acute cerebrovascular disease (4 sources) Lacunar infarction; 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] 02-07-2025 Chronic Anxiety disorders (20 sources) Anxiety; Translations: [Anxiety disorder, unspecified] Chronic Chronic kidney disease (20 sources) Chronic kidney disease stage 4; Translations: [Chronic kidney disease, stage 4 (severe)] Onset: 2 Resolved: 2 Chronic Complications of surgical procedures or medical care (16 sources) Postoperative hemorrhage; Translations: [Postoperative hemorrhage from incision] 09-09-2023 Episodic Delirium, dementia, and amnestic and other cognitive disorders (10 sources) Senile dementia; Translations: [Alzheimer's disease with [...] 03-20-2020 Episodic Gout and other crystal arthropathies (20 sources) Gout; Translations: [Gout, unspecified] Onset: 5 [...] immunization; Translations: [Vaccination given] Onset: 1 Episodic Influenza (5 sources) Influenza due to Influenza A virus; Translations: [Influenza due to other identified influenza virus with other respiratory manifestations] 08-18-2024 Episodic Menopausal disorders (3 sources) Menopause present; [...] Chronic Other diseases of kidney and ureters (8 sources) Cyst of kidney, acquired; Translations: [Cystic kidney disease, unspecified] Onset: 2 Resolved: 2 Episodic Other diseases of kidney and ureters (19 sources) Cyst of kidney; Translations: [Cyst of [...] Chronic Other nutritional; endocrine; and metabolic disorders (2 sources) Hypercalcemia Chronic Other nutritional; endocrine; and metabolic disorders [...] Chronic Other nutritional; endocrine; and metabolic disorders (2 sources) Hyperuricemia without signs of inflammatory arthritis and tophaceous disease Episodic Other nutritional; endocrine; and metabolic disorders (3 sources) Abnormal weight loss; Translations: [Abnormal weight loss] Episodic Other screening for suspected conditions (not mental disorders or infectious disease) (20 sources) Blood chemistry abnormal; Translations: [Abnormal finding of blood chemistry, unspecified] Onset: 5 09-03-2023 Episodic Other upper respiratory infections (3 sources) Chronic sinusitis; Translations: [Chronic sinusitis, unspecified] Chronic Other upper respiratory infections (4 sources) Acute maxillary sinusitis; Translations: [Acute recurrent maxillary sinusitis] Onset: 6 Episodic Residual codes; unclassified (7 sources) Memory impairment; Translations: [Other amnesia] 06-17-2024 Episodic Residual codes; unclassified (2 sources) Other amnesia; Translations: [Memory loss] 06-17-2024 Episodic Thyroid disorders (20 sources) Hypothyroidism, unspecified; Translations: [Hypothyroidism] Onset: 2 Chronic Unclassified (2 sources) CONTACT W/AND (SUSP) EXPOS COVID-19; Translations: [CONTACT W/AND (SUSP) EXPOS COVID-19] Onset: 2 Urinary tract infections (20 sources) Urinary tract infection, site not specified; Translations: [Urethral syndrome, unspecified] Onset: 2 Resolved: 2 Episodic Viral infection (4 sources) COVID-19; Translations: [Disease [...] specified as traumatic] Onset: 03-23-2013 Episodic Other female genital disorders (3 sources) Hypertrophy of uterus; Translations: [Hypertrophy of uterus] Onset: 01-17-2015 Episodic Other lower respiratory disease (3 sources) Cough; Translations: [Cough, unspecified] Onset: 09-11-2014 Episodic Other non-traumatic joint disorders (3 sources) Arthralgia of the ankle and/or foot; Translations: [Pain in unspecified ankle and joints of unspecified foot] Onset: 07-26-2014 Episodic Syncope (4 sources) Syncope and collapse; Translations: [Syncope and collapse] Onset: 10-04-2018 Episodic Unclassified (1 source) CONTACT W/AND (SUSP) EXPOS COVID-19; Translations: [CONTACT W/AND (SUSP) EXPOS COVID-19] Onset: 02-04-2022 Results Test Name Value Interpretation Reference Range Facility Urine Cultureon 02-09-2025 Bacteria identified Cx Nom (U) 30,000 colonies/ml mixed bacterial skin contaminants 2 Days PERFORMED BY: [facility] [address] [place] [address] PATHOLOGIST NET TECHNICAL ARCHITECT DAVID MAST M.D. Normal [facility] Comment on above: Performed By: #### T SH3, CBC, BMP, T4F #### [facility] [address] Laboratory - Chemistry and C hemistry - challengeOrdered By: David Pike on 01-24-2025 Bilirubin Ql (U) Negative [facility] Glucose (U) [Mass/Vol] Negative [facility] Ketones Ql (U) Negative [facility] pH (U) 5 [pH] [facility] Specific gravity (U) [Rel density] 1.000 [facility] Urobilinogen (U) [Mass/Vol] 0.2 mg/dL [facility] Laboratory - Specimen inform ationOrdered By: David Pike on 01-24-2025 Appearance (U) cloudy [facility] Color (U) yellow [facility] Laboratory - UrinalysisOrder ed By: David Pike on 01-24-2025 Leukocyte esterase Test strip Ql (U) ++ [facility] Nitrite Ql (U) Negative [facility] Protein Ql (U) Negative [facility] No Panel InformationOrdered By: David Pike on 01-24-2025 Urine Occult Blood ++ [facility] Urine Cultureon 01-24-2025 Bacteria identified Cx Nom (U) ORGANISM: Escherichia coli (MDRO) (O:ESCCOLMDRO) [place] Count >100,000 Aerobic FRED Charge (NMIC56) ---- SUSCEPTIBILITY --- ORGANISM: O:ESCCOLMDRO ANTIBIOTIC INTERPRETATION FRED Amikacin S <16 Amoxacillin/K Clavulanate S <8 Ampicillin R >16 Ampicillin/Sulbactam R >16 Aztreonam S <4 Cefazolin S <2 Cefepime S <2 Ceftazidime S <1 Ceftazidime/Avibactam S <4 Ceftolozane/Tazobacta m S <2 Ceftriaxone S <1 Cefuroxime S <4 Ciprofloxacin S <0.25 Ertapenem S <0.5 Gentamicin S <2 Levofloxacin S <0.5 Meropenem S <1 Meropenem/Vaborbactam S <2 Nitrofurantoin S <32 Piperacillin/Tazobact am S <8 Tetracycline R >8 Tigecycline S <2 Tobramycin S <2 Trimethoprim/Sulfamet hoxazole R >2 S = SUSCEPTIBLE I = INTERMEDIATE R = RESISTANT BLANK = DATA NOT AVAILABLE, OR DRUG NOT ADVISABLE OR TESTED R* = RESISTANCE DUE TO EXTENDED SPECTRUM BETA-LACTAMASES ESBL = EXTENDED SPECTRUM BETA-LACTAMASE TFG = THYMIDINE-DEPENDENT STRAIN DORIAN = BETA-LACTAMASE POSITIVE IB = INDUCIBLE BETA-LACTAMASE. APPEARS IN PLACE OF 'S' WITH SPECIES KNOWN TO POSSESS INDUCIBLE BETA-LACTAMASES. POTENTIALLY THEY MAY BECOME RESISTANT TO ALL B-LACTAM DRUGS. PERFORMED BY: [place] [address] PATHOLOGIST NET TECHNICAL ARCHITECT DAVID MAST M.D. Normal [facility] Comment on above: Performed By: #### C UU #### [address] Urine cultureOrdered By: Jeannine Pike on 01-24-2025 Bacteria identified Cx Nom (U) Escherichia coli (MDRO) Abnormal [facility] MR head/brain wo/w conon MR head/brain wo/w con [facility] [address] [place] [address] [place] [address] MRI Report Signed Patient: Ella Frank MR#: [id number] : 1940 Acct:[id number] Age/Sex: 84 / F ADM Date: 12/29/24 Loc: MR Room: Type: [facility] Attending Dr: Rosie Jones DO Copies to: Rosie Jones DO Ordering Provider: Rosie Jones DO Date of Service: 12/29/24 MR/MR head/brain wo/w con: [id number] MR head/brain wo/w con 12/29/2024 7:46 PM SIGN AND SYMPTOMS: S.br [id number] PROTOCOL: Multiplanar multisequence MR images of the brain were obtained with and without IV contrast CONTRAST: 13 mL of intravenous ProHance COMPARISON: None. FINDINGS: Extra axial spaces: There is age-related cortical atrophy. Hemorrhage: None. Ventricular system: Within normal limits. Basal cisterns: Within normal limits and not effaced. Cerebral parenchyma: Remote lacunar infarcts are noted in the deep sanches nuclei and periventricular white matter. T2 and FLAIR hyperintense signal is noted in the periventricular and subcortical white matter suggesting chronic microvascular ischemic changes. Midline shift: None.. Cerebellum: There is a remote lacunar infarct in the left cerebellar hemisphere. Brainstem: Within normal limits. OTHER: Calvarium: Normal marrow signal. Vascular system: There is irregular narrowing of the middle cerebral arteries bilaterally, left greater than right suggesting atherosclerotic change. Visualized Paranasal sinuses: Within normal limits. Visualized Orbits: Within normal limits. Visualized upper cervical spine: Within normal limits. Sella and skull base: Within normal limits. MR/MR head/brain wo/w con IMPRESSION: No acute intracranial pathology or abnormal postcontrast enhancement. Remote lacunar infarcts are noted as above. There is irregular narrowing of the middle cerebral arteries bilaterally, left greater than right suggesting atherosclerotic change. Chronic microvascular ischemic changes are noted. Impression dictated by: Perez Hughes M.D. 12/29/2024 11:47 PM Dictation Location: [place] [address] Transcribed By: DEANNE 12/29/24 2347 Dictated By: Perze Hughes II, MD 12/29/24 2338 Signed By: 12/29/[address] [facility] Albumin [Mass/volume] in Ser um or Plasma by Bromocresol green (BCG) dye binding methoOrdered By: Deepa Hendrickson on 11-28-2024 Albumin BCG dye [Mass/Vol] 4.2 g/dL 3.5-5.7 [facility] Appearance of UrineOrdered B y: Deepa Hendrickson on 11-28-2024 Appearance (U) Cloudy Critically abnormal Clear [facility] Comment on above: Order Comment: Name Collection Type:: Clean-Voided Midstream Performed By: #### T SH3, CBC, BMP, T4F #### [address] Bacteria [Presence] in Urine by AutomatedOrdered By: Deepa Hendrickson on 11-28-2024 Bacteria Auto Ql (U) Rare [HPF] None Seen [facility] Bilirubin Test strip Ql (U)O rdered By: Deepa Hendrickson on 11-28-2024 Bilirubin Ql (U) Negative Negative [facility] Calcium [Mass/volume] in Ser um or PlasmaOrdered By: Deepa Hendrickson on 11-28-2024 Calcium [Mass/Vol] 9.4 mg/dL Normal 8.6-10.3 [facility] Comment on above: Performed By: #### T SH3, CBC, BMP, T4F #### [facility] [address] Carbon dioxide, total [Moles /volume] in Serum or PlasmaOrdered By: Deepa Hendrickson on 11-28-2024 CO2 [Moles/Vol] 29.2 mmol/L Normal 21.0-31.0 [facility] Comment on above: Performed By: #### T SH3, CBC, BMP, T4F #### [facility] [address] [place] [address] [place] Chloride [Moles/volume] in S nas or PlasmaOrdered By: Deepa Hendrickson on 11-28-2024 Chloride [Moles/Vol] 104 mmol/L Normal 98-107 [facility] Comment on above: Performed By: #### T SH3, CBC, BMP, T4F #### [facility] [address] [place] [address] [place] Color of Urine by AutoOrdere d By: Deepa Hendrickson on 11-28-2024 Color (U) Yellow Normal Yellow [facility] Comment on above: Order Comment: Name Collection Type:: Clean-Voided Midstream Performed By: #### T SH3, CBC, BMP, T4F #### [facility] [address] [place] [address] [place] Creatinine [Mass/volume] in Serum or PlasmaOrdered By: Deepa Hendrickson on 11-28-2024 Creatinine [Mass/Vol] 1.40 mg/dL High 0.60-1.20 [facility] Comment on above: Performed By: #### T SH3, CBC, BMP, T4F #### [address] Creatinine [Mass/volume] in UrineOrdered By: Deepa Hendrickson on 11-28-2024 Creatinine (U) [Mass/Vol] 181.00 mg/dL [facility] Comment on above: No reference range e stablished Dipstick and Microscopicon 0 11-28-2024 Bacteria,Urine Rare Normal None Seen [facility] Comment on above: Order Comment: Name Collection Type:: Clean-Voided Midstream Performed By: #### T SH3, CBC, BMP, T4F #### [place] [address] [place] Bilirubin,Urine Negative Normal Negative [facility] Comment on above: Order Comment: Name Collection Type:: Clean-Voided Midstream Performed By: #### T SH3, CBC, BMP, T4F #### [address] Glucose Ql (U) Normal Normal Normal [facility] Comment on above: Order Comment: Name Collection Type:: Clean-Voided Midstream Performed By: #### T SH3, CBC, BMP, T4F #### [place] [address] [place] Hyaline Casts,Urine 0-8 Normal 0-8 [facility] Comment on above: Order Comment: Name Collection Type:: Clean-Voided Midstream Performed By: #### T SH3, CBC, BMP, T4F #### [place] [address] [place] Mucus,Urine Rare Normal [facility] Comment on above: Order Comment: Name Collection Type:: Clean-Voided Midstream Result Comment: PERF ORMED BY: [place] [address] PATHOLOGIST NET TECHNICAL ARCHITECT ROSMERY GÓMEZ M.D. Performed By: #### T SH3, CBC, BMP, T4F #### [place] [address] [place] Nitrite,Urine Negative Normal Negative [facility] Comment on above: Order Comment: Name Collection Type:: Clean-Voided Midstream Performed By: #### T SH3, CBC, BMP, T4F #### [address] Occult Blood,Urine Negative Normal Negative [facility] Comment on above: Order Comment: Name Collection Type:: Clean-Voided Midstream Performed By: #### T SH3, CBC, BMP, T4F #### [address] Protein,Urine Negative Normal Negative [facility] Comment on above: Order Comment: Name Collection Type:: Clean-Voided Midstream Performed By: #### T SH3, CBC, BMP, T4F #### [address] RBC,Urine 1-2 Normal 0-[address] [facility] Comment on above: Order Comment: Name Collection Type:: Clean-Voided Midstream Performed By: #### T SH3, CBC, BMP, T4F #### [address] Specificy [place],Urine 1.020 Normal 1.001-1.[address] [facility] Comment on above: Order Comment: Name Collection Type:: Clean-Voided Midstream Performed By: #### T SH3, CBC, BMP, T4F #### [address] Squamous Epithelial Cell,Urine 10-19 High 0-[address] [facility] Comment on above: Order Comment: Name Collection Type:: Clean-Voided Midstream Performed By: #### T SH3, CBC, BMP, T4F #### [address] Urobilinogen,Urine Normal Normal Normal [facility] Comment on above: Order Comment: Name Collection Type:: Clean-Voided Midstream Performed By: #### T SH3, CBC, BMP, T4F #### [address] WBC CLUMP, Urine Few High None Seen [facility] Comment on above: Order Comment: Name Collection Type:: Clean-Voided Midstream Performed By: #### T SH3, CBC, BMP, T4F #### [facility] [address] WBC,Urine 5-9 High 0-[address] [facility] Comment on above: Order Comment: Name Collection Type:: Clean-Voided Midstream Performed By: #### T SH3, CBC, BMP, T4F #### [facility] [address] Epithelial cells.squamous [# /area] in Urine sediment by Automated countOrdered By: Deepa Conroydir on 11-28-2024 Epithelial cells.squamous Auto (Urine sed) [#/Area] 10-19 [HPF] High 0-2 [facility] Erythrocyte distribution wid th [Ratio] by Automated countOrdered By: Deepa Emeka on 11-28-2024 Erythrocyte distribution width (RBC) [Ratio] 13.8 % Normal 11.9-15.3 [facility] Comment on above: Performed By: #### T SH3, CBC, BMP, T4F #### [facility] [address] Erythrocytes [#/area] in Uri ne sediment by Automated countOrdered By: Deepa Perezr on 11-28-2024 RBC Auto (Urine sed) [#/Area] 1-2 [HPF] 0-4 [facility] Erythrocytes [#/volume] in B lood by Automated countOrdered By: Deepa Perezr on 11-28-2024 RBC (Bld) [#/Vol] 4.42 10*6/uL Normal 3.60-5.00 [facility] Comment on above: Performed By: #### T SH3, CBC, BMP, T4F #### [facility] [address] Glucose [Mass/volume] in Ser um or PlasmaOrdered By: Deepa Hendrickson on 11-28-2024 Glucose [Mass/Vol] 91 mg/dL Normal 70-100 [facility] Comment on above: ADA recommended refe rence rangeRandom Glucose Reference Range is dependent on time and content of last meal. Glucose of more than 200 mg/dL in a nonstressed, ambulatory subject supports the diagnosis of Diabetes Mellitus. Result Comment: [facility] Glucose Reference Range is dependent on time and content of last meal. Glucose of more than 200 mg/dL in a nonstressed, ambulatory subject supports the diagnosis of Diabetes Mellitus. ADA recommended reference range Performed By: #### T SH3, CBC, BMP, T4F #### [address] Glucose [Mass/volume] in Uri ne by Test stripOrdered By: Deepa Hendrickson on 11-28-2024 Glucose Test strip (U) [Mass/Vol] Normal mg/dL Normal [facility] Hematocrit [Volume Fraction] of Blood by Automated countOrdered By: Deepa Hendrickson on 11-28-2024 Hematocrit (Bld) [Volume fraction] 38.8 % Normal 34.0-46.4 [facility] Comment on above: Performed By: #### T SH3, CBC, BMP, T4F #### [address] Hemoglobin Test strip Ql (U) Ordered By: Deepa Hendrickson on 11-28-2024 Hemoglobin Ql (U) Negative Negative [facility] Hemoglobin [Mass/volume] in BloodOrdered By: Deepa Perezr on 11-28-2024 Hemoglobin (Bld) [Mass/Vol] 13.4 g/dL Normal 11.8-15.4 [facility] Comment on above: Performed By: #### T SH3, CBC, BMP, T4F #### [address] Hemogram CBC Without Diffon 11-28-2024 Mean Corpuscular HGB Conc 34.4 g/dL Normal 32.0-35.[address] [facility] Comment on above: Performed By: #### T SH3, CBC, BMP, T4F #### [address] WBC (Bld) [#/Vol] 7.3 10*3/uL Normal 3.8-11.6 [facility] Comment on above: Performed By: #### T SH3, CBC, BMP, T4F #### [facility] [address] [place] [address] [place] Hyaline casts [#/area] in Ur ine sediment by Automated countOrdered By: Deepa Hendrickson on 11-28-2024 Hyaline casts Auto (Urine sed) [#/Area] 0-8 [LPF] 0-8 [facility] Ketones [Presence] in Urine by Test stripOrdered By: Deepa Hendrickson on 11-28-2024 Ketones Ql (U) Negative Normal Negative [facility] Comment on above: Order Comment: Name Collection Type:: Clean-Voided Midstream Performed By: #### T SH3, CBC, BMP, T4F #### [facility] [address] [place] [address] Leukocyte clumps [Presence] in Urine by AutomatedOrdered By: Deepa Hendrickson on 11-28-2024 Leukocyte clumps Auto Ql (U) Few [LPF] High None Seen [facility] Leukocyte esterase [Presence ] in Urine by Test stripOrdered By: Deepa Hendrickson on 11-28-2024 Leukocyte esterase Test strip Ql (U) Negative Normal Negative [facility] Comment on above: Order Comment: Name Collection Type:: Clean-Voided Midstream Performed By: #### T SH3, CBC, BMP, T4F #### [facility] [address] [place] [address] [place] Leukocytes [#/area] in Urine sediment by Automated countOrdered By: Deepa Hendrickson on 11-28-2024 WBC Auto (Urine sed) [#/Area] 5-9 [HPF] High 0-4 [facility] Leukocytes [#/volume] correc mark for nucleated erythrocytes in Blood by Automated counOrdered By: Deepa Hendrickson on 11-28-2024 WBC corrected for nucl RBC Auto (Bld) [#/Vol] 7.3 10*3/uL 3.8-11.6 [facility] MCH [Entitic mass] by Automa mark countOrdered By: Deepa Hendrickson on 11-28-2024 MCH (RBC) [Entitic mass] 30.2 pg Normal 24.7-34.3 [facility] Comment on above: Performed By: #### T SH3, CBC, BMP, T4F #### [facility] [address] MCHC Auto (RBC) [Mass/Vol]Or dered By: Deepa Hendrickson on 11-28-2024 MCHC (RBC) [Mass/Vol] 34.4 g/dL 32.0-35.0 [facility] MCV [Entitic volume] by Auto mated countOrdered By: Deepa Hendrickson on 11-28-2024 MCV (RBC) [Entitic vol] 87.8 fL Normal 80-100 F [facility] Comment on above: Performed By: #### T SH3, CBC, BMP, T4F #### [facility] [address] Magnesium [Mass/volume] in S nas or PlasmaOrdered By: Deepa Hendrickson on 11-28-2024 Magnesium [Mass/Vol] 2.0 mg/dL Normal 1.9-2.7 [facility] Comment on above: Performed By: #### T SH3, CBC, BMP, T4F #### [facility] [address] Mucus [Presence] in Urine by AutomatedOrdered By: Deepa Hendrickson on 11-28-2024 Mucus Auto Ql (U) Rare [LPF] [facility] Nitrite Test strip Ql (U)Ord ered By: Deepa Hendrickson on 11-28-2024 Nitrite Ql (U) Negative Negative [facility] No Panel InformationOrdered By: Deepa Hendrickson on 11-28-2024 Estimated GFR (CKD-EPI) 37.098 mL/Min [facility] Creatinine Clearance (Chem N/A [facility] Parathyrin.intact [Mass/volu me] in Serum or PlasmaOrdered By: Deepa Hendrickson on 11-28-2024 Parathyrin.intact [Mass/Vol] 26.0 pg/mL [facility] Parathyroid Hormone Intacton 11-28-2024 Parathyroid Hormone Intact 26.0 pg/mL Normal [facility] Comment on above: Result Comment: PERF ORMED BY: [place] [address] PATHOLOGIST NET TECHNICAL ARCHITECT ROSMERY GÓMEZ M.D. Performed By: #### T SH3, CBC, BMP, T4F #### [place] [address] [place] Phosphate [Mass/volume] in S nas or PlasmaOrdered By: Deepa Emeka on 11-28-2024 Phosphate [Mass/Vol] 3.8 mg/dL Normal 2.5-4.5 [facility] Comment on above: Performed By: #### T SH3, CBC, BMP, T4F #### [address] Platelet mean volume [Entiti c volume] in Blood by Automated countOrdered By: Deepa Emeka on 11-28-2024 Platelet mean volume (Bld) [Entitic vol] 9.2 fL Normal 6.3-10.7 [facility] Comment on above: Result Comment: PERF ORMED BY: [place] [address] PATHOLOGIST NET TECHNICAL ARCHITECT ROSMERY GÓMEZ M.D. Performed By: #### T SH3, CBC, BMP, T4F #### [place] [address] [place] Platelets [#/volume] in Bloo d by Automated countOrdered By: Deepa Hendrickson on 11-28-2024 Platelets (Bld) [#/Vol] 200 10*3/uL Normal 150-450 [facility] Comment on above: Performed By: #### T SH3, CBC, BMP, T4F #### [facility] [address] [place] [address] [place] Potassium [Moles/volume] in Serum or PlasmaOrdered By: Deepa Emeka on 11-28-2024 Potassium [Moles/Vol] 4.0 mmol/L Normal 3.5-5.1 [facility] Comment on above: Performed By: #### T SH3, CBC, BMP, T4F #### [address] [place] [address] [place] Protein Creat Ratio Ur Rando mon 11-28-2024 Creatinine, Urine (Random) 181.00 mg/dL Normal [facility] Comment on above: Result Comment: No r eference range established Performed By: #### T SH3, CBC, BMP, T4F #### [address] Urine Protein/Creatinine Ratio 72 mg/g{Cre} Normal 0-[address] [facility] Comment on above: Result Comment: PERF ORMED BY: [place] [address] PATHOLOGIST NET TECHNICAL ARCHITECT ROSMERY GÓMEZ M.D. Performed By: #### T SH3, CBC, BMP, T4F #### [address] Protein Test strip (U) [Mass /Vol]Ordered By: Deepa Perezr on 11-28-2024 Protein (U) [Mass/Vol] Negative Negative [facility] Protein [Mass/volume] in Uri neOrdered By: Deepa Emeka on 11-28-2024 Protein (U) [Mass/Vol] 13 mg/dL High 0-9 [facility] Comment on above: Performed By: #### T SH3, CBC, BMP, T4F #### [address] Renal Function Panelon 11-28 Albumin [Mass/Vol] 4.2 g/dL Normal 3.5-5.7 [facility] Comment on above: Performed By: #### T SH3, CBC, BMP, T4F #### [address] Estimated GFR 37.098 mL/Min Normal [facility] Comment on above: Performed By: #### T SH3, CBC, BMP, T4F #### [address] Serum or plasma anion gap de terminationOrdered By: Deepa Emeka on 11-28-2024 Anion gap [Moles/Vol] 9.8 mmol/L Normal 6.0-15.0 [facility] Comment on above: Performed By: #### T SH3, CBC, BMP, T4F #### [facility] [address] Sodium [Moles/volume] in Ser um or PlasmaOrdered By: Deepa Emeka on 11-28-2024 Sodium [Moles/Vol] 139 mmol/L Normal 136-145 [facility] Comment on above: Performed By: #### T SH3, CBC, BMP, T4F #### [facility] [address] Specific gravity Test strip (U) [Rel density]Ordered By: Deepa Emeka on 11-28-2024 Specific gravity (U) [Rel density] 1.020 1.001-1.030 [facility] Urate [Mass/volume] in Serum or PlasmaOrdered By: Deepa Emeka on 11-28-2024 Urate [Mass/Vol] 7.1 mg/dL High 2.3-6.6 [facility] Comment on above: Performed By: #### T SH3, CBC, BMP, T4F #### [facility] [address] [place] [address] Urea nitrogen [Mass/volume] in Serum or PlasmaOrdered By: Deepa Emeka on 11-28-2024 Urea nitrogen [Mass/Vol] 30 mg/dL High 7-25 [facility] Comment on above: Performed By: #### T SH3, CBC, BMP, T4F #### [facility] [address] Urine protein/creatinine rat ioOrdered By: Deepa Emeka on 11-28-2024 Protein/Creatinine (U) [Ratio] 72 mg/g{Cre} 0-200 [facility] Urobilinogen Test strip (U) [Mass/Vol]Ordered By: Deepa Emeka on 11-28-2024 Urobilinogen (U) [Mass/Vol] Normal mg/dL Normal [facility] Vitamin D 25 Hydroxy Totalon 11-28-2024 Vitamin D 25 Hydroxy Total 56.6 ng/mL Normal 30-[address] [facility] Comment on above: Result Comment: VINAY MIN D STATUS 25(OH)VITAMIN D RANGE (ng/mL) Deficient <20 Insufficient 20 to <30 Sufficient 30 to 100 Reference: Jose Kennedy, Juan VILLARREAL, et al. Evaluation,treatment, and prevention of vitamin D deficiency; an Endocrine Society clinical practice guideline. JCEM. 2010; 96(7):1911-. PERFORMED BY: [place] [address] PATHOLOGIST NET TECHNICAL ARCHITECT ROSMERY GÓMEZ M.D. Performed By: #### T SH3, CBC, BMP, T4F #### [address] Vitamin D+Metabolites [Mass/ volume] in Serum or PlasmaOrdered By: Deepa Hendrickson on 11-28-2024 Vitamin D+Metabolites [Mass/Vol] 56.6 ng/mL 30-100 [facility] Comment on above: VITAMIN D STATUS 25( [place])VITAMIN D RANGE (ng/mL) Deficient <20 Insufficient 20 to <30Sufficient 30 to 100Reference: Jose Kennedy, Juan VILLARREAL, et al. Evaluation,treatment, and prevention of vitamin D deficiency; an Endocrine Society clinical practice guideline. JCEM. 2010; 96(7):1911-. pH of Urine by Test stripOrd ered By: Deepa Hendrickson on 11-28-2024 pH (U) 5.5 [pH] Normal 5.0-9.0 [facility] Comment on above: Order Comment: Name Collection Type:: Clean-Voided Midstream Performed By: #### T SH3, CBC, BMP, T4F #### [place] [id number] [facility] [facility] Creatinineon 08-17-2024 Creatinine [Mass/Vol] 1.56 mg/dL High 0.60-1.[address] [facility] Comment on above: Performed By: #### T SH3, CBC, BMP, T4F #### [facility] [address] [place] [address] Estimated GFR 32.580 mL/Min Normal [facility] Comment on above: Performed By: #### T SH3, CBC, BMP, T4F #### [address] Creatinine [Mass/volume] in Serum or PlasmaOrdered By: Rosie Jones on 08-17-2024 Creatinine [Mass/Vol] Creatinine [Mass/volume] in Serum or Plasma High 0.60-1.20 [facility] No Panel InformationOrdered By: Rosie Jones on 08-17-2024 Estimated GFR (CKD-EPI) 32.580 mL/Min [facility] Creatinine Clearance (Chem N/A [facility] Thyroid Stimulating Hormoneo n 08-17-2024 TSH Qn 3.47 m[IU]/L Normal 0.45-5.33 [facility] Comment on above: Result Comment: PERF ORMED BY: [place] [address] PATHOLOGIST NET TECHNICAL ARCHITECT ROSMERY GÓMEZ M.D. Performed By: #### T SH3, CBC, BMP, T4F #### [address] Thyrotropin [Units/volume] i n Serum or PlasmaOrdered By: Rosie Jones on 08-17-2024 TSH Qn Thyrotropin [Units/volume] in Serum or Plasma 0.45-5.33 [facility] Vitamin B12on 08-17-2024 Cobalamin (Vitamin B12) [Mass/Vol] 387 pg/mL Normal 180-[address] [facility] Comment on above: Performed By: #### T SH3, CBC, BMP, T4F #### [facility] [address] [place] [address] Vitamin B12 ser/plasOrdered By: Rosie Jones on 08-17-2024 Cobalamin (Vitamin B12) [Mass/Vol] Vitamin B12 ser/plas 180-914 [facility] Albumin [Mass/volume] in Ser um or Plasma by Bromocresol green (BCG) dye binding methoOrdered By: Deepa Hendrickson on 03-28-2024 Albumin BCG dye [Mass/Vol] 4.1 g/dL 3.5-5.7 [facility] Calcium [Mass/volume] in Ser um or PlasmaOrdered By: Deepa Hendrickson on 03-28-2024 Calcium [Mass/Vol] 9.1 mg/dL Normal 8.6-10.3 [facility] Comment on above: Performed By: #### U PIERRE, [id number], PROCRERAT, CBCNO, RENAL, MG, PTH #### [facility] [address] Carbon dioxide, total [Moles /volume] in Serum or PlasmaOrdered By: Deepa Hendrickson on 03-28-2024 CO2 [Moles/Vol] 30.1 mmol/L Normal 21.0-31.0 [facility] Comment on above: Performed By: #### U PIERRE, [id number], PROCRERAT, CBCNO, RENAL, MG, PTH #### [facility] [address] [place] [id number] [place] Chloride [Moles/volume] in S nas or PlasmaOrdered By: Deepa Hendrickson on 03-28-2024 Chloride [Moles/Vol] 105 mmol/L Normal 98-107 [facility] Comment on above: Performed By: #### U PIERRE, [id number], PROCRERAT, CBCNO, RENAL, MG, PTH #### [facility] [address] [id number] [place] Creatinine [Mass/volume] in Serum or PlasmaOrdered By: Deepa Hendrickson on 03-28-2024 Creatinine [Mass/Vol] 1.50 mg/dL High 0.60-1.20 [facility] Comment on above: Performed By: #### U PIERRE, [id number], PROCRERAT, CBCNO, RENAL, MG, PTH #### [facility] [address] [place] [address] [place] Creatinine [Mass/volume] in UrineOrdered By: Deepa Hendrickson on 03-28-2024 Creatinine (U) [Mass/Vol] 57.00 mg/dL [facility] Comment on above: No reference range e stablished Erythrocyte distribution wid th [Ratio] by Automated countOrdered By: Deepa Hendrickson on 03-28-2024 Erythrocyte distribution width (RBC) [Ratio] 13.6 % Normal 11.9-15.3 [facility] Comment on above: Performed By: #### U PIERRE, [id number], PROCRERAT, CBCNO, RENAL, MG, PTH #### [facility] [address] Erythrocytes [#/volume] in B lood by Automated countOrdered By: Deepa Hendrickson on 03-28-2024 RBC (Bld) [#/Vol] 4.26 10*6/uL Normal 3.60-5.00 [facility] Comment on above: Performed By: #### U PIERRE, [id number], PROCRERAT, CBCNO, RENAL, MG, PTH #### [facility] [address] [place] [address] [place] Glucose [Mass/volume] in Ser um or PlasmaOrdered By: Deepa Hendrickson on 03-28-2024 Glucose [Mass/Vol] 94 mg/dL Normal 70-100 [facility] Comment on above: ADA recommended refe rence rangeRandom Glucose Reference Range is dependent on time and content of last meal. Glucose of more than 200 mg/dL in a nonstressed, ambulatory subject supports the diagnosis of Diabetes Mellitus. Result Comment: [place] om Glucose Reference Range is dependent on time and content of last meal. Glucose of more than 200 mg/dL in a nonstressed, ambulatory subject supports the diagnosis of Diabetes Mellitus. ADA recommended reference range Performed By: #### U PIERRE, [id number], PROCRERAT, CBCNO, RENAL, MG, PTH #### [facility] [address] [id number] [place] Hematocrit [Volume Fraction] of Blood by Automated countOrdered By: Deepa Hendrickson on 03-28-2024 Hematocrit (Bld) [Volume fraction] 37.8 % Normal 34.0-46.4 [facility] Comment on above: Performed By: #### U PIERRE, [id number], PROCRERAT, CBCNO, RENAL, MG, PTH #### [address] Hemoglobin [Mass/volume] in BloodOrdered By: Deepa Hendrickson on 03-28-2024 Hemoglobin (Bld) [Mass/Vol] 12.9 g/dL Normal 11.8-15.4 [facility] Comment on above: Performed By: #### U PIERRE, [id number], PROCRERAT, CBCNO, RENAL, MG, PTH #### [address] Hemogram CBC Without Diffon 03-28-2024 Mean Corpuscular HGB Conc 34.1 g/dL Normal 32.0-35.[address] [facility] Comment on above: Performed By: #### U PIERRE, [id number], PROCRERAT, CBCNO, RENAL, MG, PTH #### [address] WBC (Bld) [#/Vol] 6.1 10*3/uL Normal 3.8-11.6 [facility] Comment on above: Performed By: #### U PIERRE, [id number], PROCRERAT, CBCNO, RENAL, MG, PTH #### [address] Leukocytes [#/volume] correc mark for nucleated erythrocytes in Blood by Automated counOrdered By: Deepa Hendrickson on 03-28-2024 WBC corrected for nucl RBC Auto (Bld) [#/Vol] 6.1 10*3/uL 3.8-11.6 [facility] MCH [Entitic mass] by Automa mark countOrdered By: Deepa Hendrickson on 03-28-2024 MCH (RBC) [Entitic mass] 30.3 pg Normal 24.7-34.3 [facility] Comment on above: Performed By: #### U PIERRE, [id number], PROCRERAT, CBCNO, RENAL, MG, PTH #### [address] MCHC Auto (RBC) [Mass/Vol]Or dered By: Deepa Hendrickson on 03-28-2024 MCHC (RBC) [Mass/Vol] 34.1 g/dL 32.0-35.0 [facility] MCV [Entitic volume] by Auto mated countOrdered By: Deepa Hendrickson on 03-28-2024 MCV (RBC) [Entitic vol] 88.7 fL Normal 80-100 [facility] Comment on above: Performed By: #### U PIERRE, [id number], PROCRERAT, CBCNO, RENAL, MG, PTH #### [facility] [address] Magnesium [Mass/volume] in S nas or PlasmaOrdered By: Deepa Hendrickson on 03-28-2024 Magnesium [Mass/Vol] 2.3 mg/dL Normal 1.9-2.7 [facility] Comment on above: Performed By: #### U PIERRE, [id number], PROCRERAT, CBCNO, RENAL, MG, PTH #### [facility] [address] No Panel InformationOrdered By: Deepa Hendrickson on 03-28-2024 Estimated GFR (CKD-EPI) 34.363 mL/Min [facility] Creatinine Clearance (Chem N/A [facility] Parathyrin.intact [Mass/volu me] in Serum or PlasmaOrdered By: Deepa Hendrickson on 03-28-2024 Parathyrin.intact [Mass/Vol] 44.1 pg/mL [facility] Parathyroid Hormone Intacton 03-28-2024 Parathyroid Hormone Intact 44.1 pg/mL Normal [facility] Comment on above: Result Comment: PERF ORMED BY: [place] [address] PATHOLOGIST NET TECHNICAL ARCHITECT RACHEL MONTERO M.D. Performed By: #### U PIERRE, [id number], PROCRERAT, CBCNO, RENAL, MG, PTH #### [facility] [address] [place] [address] Phosphate [Mass/volume] in S nas or PlasmaOrdered By: Deepa Hendrickson on 03-28-2024 Phosphate [Mass/Vol] 3.8 mg/dL Normal 2.5-4.5 [facility] Comment on above: Performed By: #### U PIERRE, [id number], PROCRERAT, CBCNO, RENAL, MG, PTH #### [address] Platelet mean volume [Entiti c volume] in Blood by Automated countOrdered By: Deepa Hendrickson on 03-28-2024 Platelet mean volume (Bld) [Entitic vol] 8.8 fL Normal 6.3-10.7 [facility] Comment on above: Result Comment: PERF ORMED BY: [place] [address] PATHOLOGIST NET TECHNICAL ARCHITECT RACHEL MONTERO M.D. Performed By: #### U PIERRE, [id number], PROCRERAT, CBCNO, RENAL, MG, PTH #### [address] Platelets [#/volume] in Bloo d by Automated countOrdered By: Deepa Hendrickson on 03-28-2024 Platelets (Bld) [#/Vol] 206 10*3/uL Normal 150-450 [facility] Comment on above: Performed By: #### U PIERRE, [id number], PROCRERAT, CBCNO, RENAL, MG, PTH #### [address] Potassium [Moles/volume] in Serum or PlasmaOrdered By: Deepa Hendrickson on 03-28-2024 Potassium [Moles/Vol] 4.2 mmol/L Normal 3.5-5.1 [facility] Comment on above: Performed By: #### U PIERRE, [id number], PROCRERAT, CBCNO, RENAL, MG, PTH #### [address] Protein Creat Ratio Ur Rando mon 03-28-2024 Creatinine, Urine (Random) 57.00 mg/dL Normal [facility] Comment on above: Result Comment: No r eference range established Performed By: #### T SH3, CBC, BMP, T4F #### [address] Urine Protein/Creatinine Ratio 211 mg/g{Cre} High 0-[address] [facility] Comment on above: Result Comment: PERF ORMED BY: [place] [address] PATHOLOGIST NET TECHNICAL ARCHITECT RACHEL MONTERO M.D. Performed By: #### T SH3, CBC, BMP, T4F #### [address] Protein [Mass/volume] in Uri neOrdered By: Deepa Hendrickson on 03-28-2024 Protein (U) [Mass/Vol] 12 mg/dL High 0-9 [facility] Comment on above: Performed By: #### T SH3, CBC, BMP, T4F #### [address] Renal Function Panelon 03-28 Albumin [Mass/Vol] 4.1 g/dL Normal 3.5-5.7 [facility] Comment on above: Performed By: #### U PIERRE, [id number], PROCRERAT, CBCNO, RENAL, MG, PTH #### [address] GFR/1.73 sq M.predicted MDRD (S/P/Bld) [Vol rate/Area] 34.363 mL/min/{1.73_m2} Normal [facility] Comment on above: Performed By: #### U PIERRE, [id number], PROCRERAT, CBCNO, RENAL, MG, PTH #### [address] Serum or plasma anion gap de terminationOrdered By: Deepa Hendrickson on 03-28-2024 Anion gap [Moles/Vol] 11.1 mmol/L Normal 6.0-15.0 [facility] Comment on above: Performed By: #### U PIERRE, [id number], PROCRERAT, CBCNO, RENAL, MG, PTH #### [facility] [address] [place] [address] [place] Sodium [Moles/volume] in Ser um or PlasmaOrdered By: Deepa Emeka on 03-28-2024 Sodium [Moles/Vol] 142 mmol/L Normal 136-145 [facility] Comment on above: Performed By: #### U PIERRE, [id number], PROCRERAT, CBCNO, RENAL, MG, PTH #### [facility] [address] [place] [address] [place] Urate [Mass/volume] in Serum or PlasmaOrdered By: Deepa Emeka on 03-28-2024 Urate [Mass/Vol] 6.6 mg/dL Normal 2.3-6.6 [facility] Comment on above: Performed By: #### T SH3, CBC, BMP, T4F #### [facility] [address] [place] [id number] [place] Urea nitrogen [Mass/volume] in Serum or PlasmaOrdered By: Deepa Emeka on 03-28-2024 Urea nitrogen [Mass/Vol] 31 mg/dL High 7-25 [facility] Comment on above: Performed By: #### U PIERRE, [id number], PROCRERAT, CBCNO, RENAL, MG, PTH #### [facility] [address] [place] [address] [place] Urine protein/creatinine rat ioOrdered By: Deepa Emeka on 03-28-2024 Protein/Creatinine (U) [Ratio] 211 mg/g{Cre} High 0-200 [facility] Vitamin D 25 Hydroxy Totalon 03-28-2024 Vitamin D 25 Hydroxy Total 66.0 ng/mL Normal 30-[address] [facility] Comment on above: Result Comment: VINAY MIN D STATUS 25(OH)VITAMIN D RANGE (ng/mL) Deficient <20 Insufficient 20 to <30 Sufficient 30 to 100 Reference: Austyn MF,Jose NC, Juan VILLARREAL, et al. Evaluation,treatment, and prevention of vitamin D deficiency; an Endocrine Society clinical practice guideline. JCEM. 2010; 96(7):1911-. PERFORMED BY: [place] [address] PATHOLOGIST NET TECHNICAL ARCHITECT RACHEL MONTERO M.D. Performed By: #### T SH3, CBC, BMP, T4F #### [facility] [address] [place] [address] Vitamin D+Metabolites [Mass/ volume] in Serum or PlasmaOrdered By: Deepa Hendrickson on 03-28-2024 Vitamin D+Metabolites [Mass/Vol] 66.0 ng/mL 30-100 [facility] Comment on above: VITAMIN D STATUS 25( [place])VITAMIN D RANGE (ng/mL) Deficient <20 Insufficient 20 to <30Sufficient 30 to 100Reference: Austyn MF,Jose OCONNELL, Juan VILLARREAL, et al. Evaluation,treatment, and prevention of vitamin D deficiency; an Endocrine Society clinical practice guideline. JCEM. 2010; 96(7):1911-. Automated basophil %Ordered By: David Pike on 03-18-2024 Basophils/100 WBC (Bld) 0.9 % Normal . [facility] Comment on above: Performed By: #### T SH3, CBC, BMP, T4F #### [facility] [address] [place] [address] Automated basophil countOrde red By: David Pike on 03-18-2024 Basophils (Bld) [#/Vol] 0.1 10*3/uL Normal 0.0-0.2 [facility] Comment on above: Result Comment: PERF ORMED BY: [place] [address] PATHOLOGIST NET TECHNICAL ARCHITECT RACHEL MONTERO M.D. Performed By: #### T SH3, CBC, BMP, T4F #### [facility] [address] [place] [address] Automated blood monocyte cou ntOrdered By: David Pike on 03-18-2024 Monocytes (Bld) [#/Vol] 0.4 10*3/uL Normal 0.0-0.8 [facility] Comment on above: Performed By: #### T SH3, CBC, BMP, T4F #### [facility] [address] Automated eosinophil %Ordere d By: Dvaid Pike on 03-18-2024 Eosinophils/100 WBC (Bld) 4.2 % Normal . [facility] Comment on above: Performed By: #### T SH3, CBC, BMP, T4F #### [address] Automated eosinophil countOr dered By: David Pike on 03-18-2024 Eosinophils (Bld) [#/Vol] 0.3 10*3/uL Normal 0.0-0.45 [facility] Comment on above: Performed By: #### T SH3, CBC, BMP, T4F #### [address] Automated monocyte %Ordered By: David Pike on 03-18-2024 Monocytes/100 WBC (Bld) 7.1 % Normal . [facility] Comment on above: Performed By: #### T SH3, CBC, BMP, T4F #### [address] Automated neutrophil %Ordere d By: David Pike on 03-18-2024 Neutrophils/100 WBC (Bld) 61.0 % Normal . [facility] Comment on above: Performed By: #### T SH3, CBC, BMP, T4F #### [address] Basic Metabolic Panelon GFR/1.73 sq M.predicted MDRD (S/P/Bld) [Vol rate/Area] 35.790 mL/min/{1.73_m2} Normal [facility] Comment on above: Performed By: #### T SH3, CBC, BMP, T4F #### [address] Calcium [Mass/volume] in Ser um or PlasmaOrdered By: David Pike on 03-18-2024 Calcium [Mass/Vol] 9.1 mg/dL Normal 8.6-10.3 [facility] Comment on above: Performed By: #### T SH3, CBC, BMP, T4F #### [facility] [address] [place] [address] Carbon dioxide, total [Moles /volume] in Serum or PlasmaOrdered By: David Pike on 03-18-2024 CO2 [Moles/Vol] 29.6 mmol/L Normal 21.0-31.0 [facility] Comment on above: Performed By: #### T SH3, CBC, BMP, T4F #### [address] Chloride [Moles/volume] in S nas or PlasmaOrdered By: David Pike on 03-18-2024 Chloride [Moles/Vol] 106 mmol/L Normal 98-107 [facility] Comment on above: Performed By: #### T SH3, CBC, BMP, T4F #### [address] Complete Blood Count Auto Di ffon 03-18-2024 Mean Corpuscular HGB Conc 34.3 g/dL Normal 32.0-35.[address] [facility] Comment on above: Performed By: #### T SH3, CBC, BMP, T4F #### [facility] [address] [place] [address] NRBC% 0.1 /100{WBC} Normal 0-0.5 [facility] Comment on above: Performed By: #### T SH3, CBC, BMP, T4F #### [facility] [address] [place] [address] Creatinine [Mass/volume] in Serum or PlasmaOrdered By: David Pike on 03-18-2024 Creatinine [Mass/Vol] 1.45 mg/dL High 0.60-1.20 [facility] Comment on above: Performed By: #### T SH3, CBC, BMP, T4F #### [facility] [address] [place] [address] Erythrocyte distribution wid th [Ratio] by Automated countOrdered By: David Pike on 03-18-2024 Erythrocyte distribution width (RBC) [Ratio] 13.7 % Normal 11.9-15.3 [facility] Comment on above: Performed By: #### T SH3, CBC, BMP, T4F #### [facility] [address] [place] [address] [place] Erythrocytes [#/volume] in B lood by Automated countOrdered By: David Pike on 03-18-2024 RBC (Bld) [#/Vol] 4.43 10*6/uL Normal 3.60-5.00 [facility] Comment on above: Performed By: #### T SH3, CBC, BMP, T4F #### [facility] [address] [place] [address] [place] Glucose [Mass/volume] in Ser um or PlasmaOrdered By: David Pike on 03-18-2024 Glucose [Mass/Vol] 94 mg/dL Normal 70-100 [facility] Comment on above: ADA recommended refe rence rangeRandom Glucose Reference Range is dependent on time and content of last meal. Glucose of more than 200 mg/dL in a nonstressed, ambulatory subject supports the diagnosis of Diabetes Mellitus. Result Comment: [place] om Glucose Reference Range is dependent on time and content of last meal. Glucose of more than 200 mg/dL in a nonstressed, ambulatory subject supports the diagnosis of Diabetes Mellitus. ADA recommended reference range Performed By: #### T SH3, CBC, BMP, T4F #### [facility] [address] [place] [id number] [place] Hematocrit [Volume Fraction] of Blood by Automated countOrdered By: David Pike on 03-18-2024 Hematocrit (Bld) [Volume fraction] 39.2 % Normal 34.0-46.4 [facility] Comment on above: Performed By: #### T SH3, CBC, BMP, T4F #### [facility] [address] [place] [id number] [place] Hemoglobin [Mass/volume] in BloodOrdered By: David Pike on 03-18-2024 Hemoglobin (Bld) [Mass/Vol] 13.4 g/dL Normal 11.8-15.4 [facility] Comment on above: Performed By: #### T SH3, CBC, BMP, T4F #### [facility] [address] [place] [address] Leukocytes [#/volume] correc mark for nucleated erythrocytes in Blood by Automated counOrdered By: David Pike on 03-18-2024 WBC corrected for nucl RBC Auto (Bld) [#/Vol] 6.3 10*3/uL 3.8-11.6 [facility] Leukocytes [#/volume] in Blo od by Automated countOrdered By: David Pike on 03-18-2024 WBC (Bld) [#/Vol] 6.3 10*3/uL Normal 3.8-11.6 [facility] Comment on above: Performed By: #### T SH3, CBC, BMP, T4F #### [facility] [address] [place] [address] Lymphocytes [#/volume] in Bl ood by Automated countOrdered By: David Pike on 03-18-2024 Lymphocytes (Bld) [#/Vol] 1.7 10*3/uL Normal 1.00-4.8 [facility] Comment on above: Performed By: #### T SH3, CBC, BMP, T4F #### [facility] [address] [place] [address] Lymphocytes/100 leukocytes i n Blood by Automated countOrdered By: David Pike on 03-18-2024 Lymphocytes/100 WBC (Bld) 26.8 % Normal . [facility] Comment on above: Performed By: #### T SH3, CBC, BMP, T4F #### [facility] [address] [place] [address] MCH [Entitic mass] by Automa mark countOrdered By: David Pike on 03-18-2024 MCH (RBC) [Entitic mass] 30.4 pg Normal 24.7-34.3 [facility] Comment on above: Performed By: #### T SH3, CBC, BMP, T4F #### [facility] [address] [place] [address] MCHC Auto (RBC) [Mass/Vol]Or dered By: David Pike on 03-18-2024 MCHC (RBC) [Mass/Vol] 34.3 g/dL 32.0-35.0 [facility] MCV [Entitic volume] by Auto mated countOrdered By: David Pike on 03-18-2024 MCV (RBC) [Entitic vol] 88.6 fL Normal 80-100 [facility] Comment on above: Performed By: #### T SH3, CBC, BMP, T4F #### [facility] [address] Neutrophils [#/volume] in Bl ood by Automated countOrdered By: David Pike on 03-18-2024 Neutrophils (Bld) [#/Vol] 3.8 10*3/uL Normal 1.8-7.7 [facility] Comment on above: Performed By: #### T SH3, CBC, BMP, T4F #### [address] No Panel InformationOrdered By: David Pike on 03-18-2024 Estimated GFR (CKD-EPI) 35.790 mL/Min [facility] Creatinine Clearance (Chem N/A [facility] Nucleated erythrocytes [Pres ence] in Blood by Automated countOrdered By: David Pike on 03-18-2024 Nucleated RBC Auto Ql (Bld) 0.1 /100{WBC} 0-0.5 [facility] Platelet mean volume [Entiti c volume] in Blood by Automated countOrdered By: David Pike on 03-18-2024 Platelet mean volume (Bld) [Entitic vol] 8.9 fL Normal 6.3-10.7 [facility] Comment on above: Performed By: #### T SH3, CBC, BMP, T4F #### [address] Platelets [#/volume] in Bloo d by Automated countOrdered By: David Pike on 03-18-2024 Platelets (Bld) [#/Vol] 189 10*3/uL Normal 150-450 [facility] Comment on above: Performed By: #### T SH3, CBC, BMP, T4F #### [facility] [address] [place] [address] [place] Potassium [Moles/volume] in Serum or PlasmaOrdered By: David Pike on 03-18-2024 Potassium [Moles/Vol] 4.5 mmol/L Normal 3.5-5.1 [facility] Comment on above: Performed By: #### T SH3, CBC, BMP, T4F #### [address] Serum or plasma anion gap de terminationOrdered By: David Pike on 03-18-2024 Anion gap [Moles/Vol] 8.9 mmol/L Normal 6.0-15.0 [facility] Comment on above: Performed By: #### T SH3, CBC, BMP, T4F #### [address] Sodium [Moles/volume] in Ser um or PlasmaOrdered By: David Pike on 03-18-2024 Sodium [Moles/Vol] 140 mmol/L Normal 136-145 [facility] Comment on above: Performed By: #### T SH3, CBC, BMP, T4F #### [address] Thyrotropin [Units/volume] i n Serum or PlasmaOrdered By: David Pike on 03-18-2024 TSH Qn 7.59 m[IU]/L High 0.45-5.33 [facility] Comment on above: Result Comment: PERF ORMED BY: [place] [address] PATHOLOGIST NET TECHNICAL ARCHITECT RACHEL MONTERO M.D. Performed By: #### T SH3, CBC, BMP, T4F #### [address] Thyroxine (T4) free [Mass/vo lume] in Serum or PlasmaOrdered By: David Pike on 03-18-2024 Free T4 [Mass/Vol] 1.13 ng/dL High 0.61-1.12 [facility] Comment on above: Performed By: #### T SH3, CBC, BMP, T4F #### [place] [address] [place] Urea nitrogen [Mass/volume] in Serum or PlasmaOrdered By: David Pike on 03-18-2024 Urea nitrogen [Mass/Vol] 26 mg/dL High 7-25 [facility] Comment on above: Performed By: #### T SH3, CBC, BMP, T4F #### [facility] [address] [id number] [facility] Albumin [Mass/volume] in Ser um or Plasma by Bromocresol green (BCG) dye binding methoOrdered By: Deepa Hendrickson on 09-07-2023 Albumin BCG dye [Mass/Vol] 4.2 g/dL 3.5-5.7 [facility] Automated erythrocytes count in urine sediment (number/area)Ordered By: Deepa Hendrickson on 09-07-2023 RBC Auto (Urine sed) [#/Area] 0-1 [HPF] 0-4 [facility] Automated leukocytes count i n urine sediment (number/area)Ordered By: Deepa Hendrickson on 09-07-2023 WBC Auto (Urine sed) [#/Area] 5-9 [HPF] 0-4 [facility] Automated urine sediment luis alberto cium oxalate crystal count by microscopy (number/high powOrdered By: Deepa Hendrickson on 09-07-2023 Calcium oxalate crystals LM.HPF (Urine sed) [#/Area] 4+ [HPF] [facility] Bilirubin Test strip Ql (U)O rdered By: Deepa Hendrickson on 09-07-2023 Bilirubin Ql (U) Negative Negative [facility] Calcium [Mass/volume] in Ser um or PlasmaOrdered By: Deepa Hendrickson on 09-07-2023 Calcium [Mass/Vol] 9.7 mg/dL 8.6-10.3 [facility] Carbon dioxide, total [Moles /volume] in Serum or PlasmaOrdered By: Deepa Hendrickson on 09-07-2023 CO2 [Moles/Vol] 30.5 mmol/L 21.0-31.0 [facility] Chloride [Moles/volume] in S nas or PlasmaOrdered By: Deepa Hendrickson on 09-07-2023 Chloride [Moles/Vol] 105 mmol/L 98-107 [facility] Color Auto (U)Ordered By: Ab flip Hendrickson on 09-07-2023 Color (U) Yellow Yellow [facility] Creatinine [Mass/volume] in Serum or PlasmaOrdered By: Deepa Hendrickson on 09-07-2023 Creatinine [Mass/Vol] 1.66 mg/dL 0.60-1.20 [facility] Creatinine [Mass/volume] in UrineOrdered By: Deepa Hendrickson on 09-07-2023 Creatinine (U) [Mass/Vol] mg/dL 11.0-20.0 [facility] Erythrocyte distribution wid th Auto (RBC) [Ratio]Ordered By: Deepa Hendrickson on 09-07-2023 Erythrocyte distribution width (RBC) [Ratio] 13.5 % 11.9-15.3 [facility] Glucose [Mass/volume] in Ser um or PlasmaOrdered By: Deepa Hendrickson on 09-07-2023 Glucose [Mass/Vol] 85 mg/dL 70-100 [facility] Comment on above: ADA recommended refe rence rangeRandom Glucose Reference Range is dependent on time and content of last meal. Glucose of more than 200 mg/dL in a nonstressed, ambulatory subject supports the diagnosis of Diabetes Mellitus. Hematocrit Auto (Bld) [Volum e fraction]Ordered By: Deepa Hendrickson on 09-07-2023 Hematocrit (Bld) [Volume fraction] 37.8 % 34.0-46.4 [facility] Hemoglobin [Mass/volume] in BloodOrdered By: Deepa Hendrickson on 09-07-2023 Hemoglobin (Bld) [Mass/Vol] 12.6 g/dL 11.8-15.4 [facility] Ketones Auto test strip (U) [Mass/Vol]Ordered By: Deepa Hendrickson on 09-07-2023 Ketones (U) [Mass/Vol] Trace Negative [facility] - UrinalysisOrder ed By: Deepa Hendrickson on 09-07-2023 Hyaline casts LM Ql (Urine sed) 9-19 [LPF] 0-8 [facility] Leukocytes [#/volume] correc mark for nucleated erythrocytes in Blood by Automated counOrdered By: Deepa Hendrickson on 09-07-2023 WBC corrected for nucl RBC Auto (Bld) [#/Vol] 7.1 10*3/uL 3.8-11.6 [facility] MCH Auto (RBC) [Entitic mass ]Ordered By: Deepa Hendrickson on 09-07-2023 MCH (RBC) [Entitic mass] 29.6 pg 24.7-34.3 [facility] MCHC Auto (RBC) [Mass/Vol]Or dered By: Deepa Hendrickson on 09-07-2023 MCHC (RBC) [Mass/Vol] 33.3 g/dL 32.0-35.0 [facility] MCV Auto (RBC) [Entitic vol] Ordered By: Deepa Hendrickson on 09-07-2023 MCV (RBC) [Entitic vol] 88.9 fL 80-100 [facility] Magnesium [Mass/volume] in S nas or PlasmaOrdered By: Deepa Hendrickson on 09-07-2023 Magnesium [Mass/Vol] 2.1 mg/dL 1.9-2.7 [facility] Nitrite Test strip Ql (U)Ord ered By: Deepa Hendrickson on 09-07-2023 Nitrite Ql (U) Negative Negative [facility] No Panel InformationOrdered By: Deepa Hendrickson on 09-07-2023 Estimated GFR (CKD-EPI) 30.428 mL/Min [facility] Creatinine Clearance (Chem N/A [facility] Parathyrin.intact [Mass/volu me] in Serum or PlasmaOrdered By: Deepa Hendrickson on 09-07-2023 Parathyrin.intact [Mass/Vol] 17.7 pg/mL 12-88 [facility] Phosphate [Mass/volume] in S nas or PlasmaOrdered By: Deepa Hendrickson on 09-07-2023 Phosphate [Mass/Vol] 3.8 mg/dL 2.5-4.5 [facility] Platelet mean volume Auto (B ld) [Entitic vol]Ordered By: Deepa Hendrickson on 09-07-2023 Platelet mean volume (Bld) [Entitic vol] 9.2 fL 6.3-10.7 [facility] Platelets Auto (Bld) [#/Vol] Ordered By: Deepa Conroydir on 09-07-2023 Platelets (Bld) [#/Vol] 216 10*3/uL 150-450 [facility] Potassium [Moles/volume] in Serum or PlasmaOrdered By: Deepa Emeka on 09-07-2023 Potassium [Moles/Vol] 4.0 mmol/L 3.5-5.1 [facility] Protein Auto test strip (U) [Mass/Vol]Ordered By: Deepa Emeka on 09-07-2023 Protein (U) [Mass/Vol] 30 mg/dL Negative [facility] Protein [Mass/volume] in Uri neOrdered By: Deepa Emeka on 09-07-2023 Protein (U) [Mass/Vol] 41 mg/dL 0-9 [facility] RBC Auto (Bld) [#/Vol]Ordere d By: Deepa Conroydir on 09-07-2023 RBC (Bld) [#/Vol] 4.25 10*6/uL 3.60-5.00 [facility] Serum or plasma anion gap de terminationOrdered By: Deepa Emeka on 09-07-2023 Anion gap [Moles/Vol] 10.5 mmol/L 6.0-15.0 [facility] Sodium [Moles/volume] in Ser um or PlasmaOrdered By: Deepa Emeka on 09-07-2023 Sodium [Moles/Vol] 142 mmol/L 136-145 [facility] Specific gravity Auto test s trip (U) [Rel density]Ordered By: Deepa Emeka on 09-07-2023 Specific gravity (U) [Rel density] 1.027 1.001-1.030 [facility] Squamous epithelial cells de tection in urine sediment by light microscopyOrdered By: Deepa Perezr on 09-07-2023 Epithelial cells.squamous LM Ql (Urine sed) 10-19 [HPF] 0-2 [facility] Urate [Mass/volume] in Serum or PlasmaOrdered By: Deepa Emeka on 09-07-2023 Urate [Mass/Vol] 6.8 mg/dL 2.3-6.6 [facility] Urea nitrogen [Mass/volume] in Serum or PlasmaOrdered By: Deepa Hendrickson on 09-07-2023 Urea nitrogen [Mass/Vol] 30 mg/dL 7- [facility] Urine bacteria detection by automated methodOrdered By: Deepa Hendrickson on 09-07-2023 Bacteria Auto Ql (U) Rare None Seen [facility] Urine clarity by refractomet ry automatedOrdered By: Deepa Hendrickson on 09-07-2023 Clarity Refractometry automated (U) Cloudy Clear [facility] Urine glucose measurement by automated test strip (mass/volume)Ordered By: Deepa Hendrickson on 09-07-2023 Glucose Auto test strip (U) [Mass/Vol] Normal mg/dL Normal [facility] Urine hemoglobin detection b y automated test stripOrdered By: Deepa Hendrickson on 09-07-2023 Hemoglobin Auto test strip Ql (U) Negative Negative [facility] Urine leukocyte esterase det ection by automated test stripOrdered By: Deepa Hendrickson on 09-07-2023 Leukocyte esterase Auto test strip Ql (U) Negative Negative [facility] Urine protein/creatinine rat ioOrdered By: Deepa Hendrickson on 09-07-2023 Protein/Creatinine (U) [Ratio] TNP [facility] Comment on above: Test not performed Urine sediment crystal ident ification by light microscopyOrdered By: Deepa Hendrickson on 09-07-2023 Crystals LM Nom (Urine sed) None seen [HPF] [facility] Urobilinogen Auto test strip (U) [Mass/Vol]Ordered By: Deepa Hendrickson on 09-07-2023 Urobilinogen (U) [Mass/Vol] Normal mg/dL Normal [facility] Vitamin D+Metabolites [Mass/ volume] in Serum or PlasmaOrdered By: Deepa Hendrickson on 09-07-2023 Vitamin D+Metabolites [Mass/Vol] 72.3 ng/mL 30-100 [facility] Comment on above: VITAMIN D STATUS 25( [place])VITAMIN D RANGE (ng/mL) Deficient <20 Insufficient 20 to <30Sufficient 30 to 100Reference: Jose Kennedy [place], Juan VILLARREAL, et al. Evaluation,treatment, and prevention of vitamin D deficiency; an Endocrine Society clinical practice guideline. JCEM. 2010; 96(7):1911-30. pH Auto test strip (U)Ordere d By: Deepa Hendrickson on 09-07-2023 pH (U) 5.5 [pH] 5.0-9.0 [facility] Urinalysis - DIPSTICKon Appearance (U) clear [employer] Other Bilirubin Ql (U) Negative [employer] Other Color (U) yellow [employer] Other Glucose Ql (U) Negative [employer] Other Hemoglobin Ql (U) Negative [employer] Other Ketones Ql (U) Negative [employer] Other Leukocyte esterase Test strip Ql (U) Negative [employer] Other Nitrite Ql (U) Negative [employer] Other pH (U) 5.0 [pH] [employer] Other Protein Ql (U) Negative [employer] Other Specific gravity (U) [Rel density] 1.010 [employer] Other Urobilinogen (U) [Mass/Vol] 0.2 mg/dL [employer] Other Urinalysis - DIPSTICK Nor [employer] Other Albumin [Mass/volume] in Ser um or Plasma by Bromocresol green (BCG) dye binding methoOrdered By: Deepa Hendrickson on 03-17-2023 Albumin BCG dye [Mass/Vol] 4.0 g/dL 3.5-5.7 [facility] Automated erythrocytes count in urine sediment (number/area)Ordered By: Deepa Hendrickson on 03-17-2023 RBC Auto (Urine sed) [#/Area] None seen [HPF] 0-4 [facility] Automated leukocytes count i n urine sediment (number/area)Ordered By: Deepa Hendrickson on 03-17-2023 WBC Auto (Urine sed) [#/Area] 3-4 [HPF] 0-4 [facility] Bilirubin Test strip Ql (U)O rdered By: Deepa Hendrickson on 03-17-2023 Bilirubin Ql (U) Negative Negative [facility] Calcium [Mass/volume] in Ser um or PlasmaOrdered By: Deepa Hendrickson on 03-17-2023 Calcium [Mass/Vol] 9.1 mg/dL 8.6-10.3 [facility] Carbon dioxide, total [Moles /volume] in Serum or PlasmaOrdered By: Deepa Hendrickson on 03-17-2023 CO2 [Moles/Vol] 30.3 mmol/L 21.0-31.0 [facility] Chloride [Moles/volume] in S nas or PlasmaOrdered By: Deepa Hendrickson on 03-17-2023 Chloride [Moles/Vol] 101 mmol/L 98-107 [facility] Color Auto (U)Ordered By: Ab flip Hendrickson on 03-17-2023 Color (U) Yellow Yellow [facility] Creatinine [Mass/volume] in Serum or PlasmaOrdered By: Deepa Hendrickson on 03-17-2023 Creatinine [Mass/Vol] 1.45 mg/dL 0.60-1.20 [facility] Creatinine [Mass/volume] in UrineOrdered By: Deepa Hendrickson on 03-17-2023 Creatinine (U) [Mass/Vol] 35.0 mg/dL 11.0-20.0 [facility] Erythrocyte distribution wid th Auto (RBC) [Ratio]Ordered By: Deepa Hendrickson on 03-17-2023 Erythrocyte distribution width (RBC) [Ratio] 13.9 % 11.9-15.3 [facility] Glucose [Mass/volume] in Ser um or PlasmaOrdered By: Deepa Hendrickson on 03-17-2023 Glucose [Mass/Vol] 90 mg/dL 70-100 [facility] Comment on above: ADA recommended refe rence rangeRandom Glucose Reference Range is dependent on time and content of last meal. Glucose of more than 200 mg/dL in a nonstressed, ambulatory subject supports the diagnosis of Diabetes Mellitus. Hematocrit Auto (Bld) [Volum e fraction]Ordered By: Deepa Hendrickson on 03-17-2023 Hematocrit (Bld) [Volume fraction] 37.9 % 34.0-46.4 [facility] Hemoglobin [Mass/volume] in BloodOrdered By: Deepa Hendrickson on 03-17-2023 Hemoglobin (Bld) [Mass/Vol] 12.8 g/dL 11.8-15.4 [facility] Ketones Auto test strip (U) [Mass/Vol]Ordered By: Deepa Hendrickson on 03-17-2023 Ketones (U) [Mass/Vol] Negative Negative [facility] - UrinalysisOrder ed By: Deepa Hendrickson on 03-17-2023 Hyaline casts LM Ql (Urine sed) 0-8 [LPF] 0-8 [facility] Leukocytes [#/volume] correc mark for nucleated erythrocytes in Blood by Automated counOrdered By: Deepa Hendrickson on 03-17-2023 WBC corrected for nucl RBC Auto (Bld) [#/Vol] 5.1 10*3/uL 3.8-11.6 [facility] MCH Auto (RBC) [Entitic mass ]Ordered By: Deepa Hendrickson on 03-17-2023 MCH (RBC) [Entitic mass] 30.1 pg 24.7-34.3 [facility] MCHC Auto (RBC) [Mass/Vol]Or dered By: Deepa Hendrickson on 03-17-2023 MCHC (RBC) [Mass/Vol] 33.7 g/dL 32.0-35.0 [facility] MCV Auto (RBC) [Entitic vol] Ordered By: Deepa Hendrickson on 03-17-2023 MCV (RBC) [Entitic vol] 89.4 fL 80-100 [facility] Magnesium [Mass/volume] in S nas or PlasmaOrdered By: Deepa Hendrickson on 03-17-2023 Magnesium [Mass/Vol] 2.2 mg/dL 1.9-2.7 [facility] Nitrite Test strip Ql (U)Ord ered By: Deepa Hendrickson on 03-17-2023 Nitrite Ql (U) Negative Negative [facility] No Panel InformationOrdered By: Deepa Hendrickson on 03-17-2023 Estimated GFR (CKD-EPI) 36.014 mL/Min [facility] Creatinine Clearance (Chem N/A [facility] Parathyrin.intact [Mass/volu me] in Serum or PlasmaOrdered By: Deepa Hendrickson on 03-17-2023 Parathyrin.intact [Mass/Vol] 45.6 pg/mL 12-88 [facility] Phosphate [Mass/volume] in S nas or PlasmaOrdered By: Deepa Hendrickson on 03-17-2023 Phosphate [Mass/Vol] 3.2 mg/dL 3.7-7.2 [facility] Platelet mean volume Auto (B ld) [Entitic vol]Ordered By: Deepa Hendrickson on 03-17-2023 Platelet mean volume (Bld) [Entitic vol] 9.0 fL 6.3-10.7 [facility] Platelets Auto (Bld) [#/Vol] Ordered By: Deepa Hendrickson on 03-17-2023 Platelets (Bld) [#/Vol] 187 10*3/uL 150-450 [facility] Potassium [Moles/volume] in Serum or PlasmaOrdered By: Deepa Hendrickson on 03-17-2023 Potassium [Moles/Vol] 4.6 mmol/L 3.5-5.1 [facility] Protein Auto test strip (U) [Mass/Vol]Ordered By: Deepa Hendrickson on 03-17-2023 Protein (U) [Mass/Vol] Negative Negative [facility] Protein [Mass/volume] in Uri neOrdered By: Deepa Hendrickson on 03-17-2023 Protein (U) [Mass/Vol] 6 mg/dL 0-9 [facility] RBC Auto (Bld) [#/Vol]Ordere d By: Deepa Hendrickson on 03-17-2023 RBC (Bld) [#/Vol] 4.24 10*6/uL 3.60-5.00 [facility] Serum or plasma anion gap de terminationOrdered By: Deepa Hendrickson on 03-17-2023 Anion gap [Moles/Vol] 10.3 mmol/L 6.0-15.0 [facility] Sodium [Moles/volume] in Ser um or PlasmaOrdered By: Deepa Hendrickson on 03-17-2023 Sodium [Moles/Vol] 137 mmol/L 136-145 [facility] Specific gravity Auto test s trip (U) [Rel density]Ordered By: Deepa Hendrickson on 03-17-2023 Specific gravity (U) [Rel density] 1.007 1.001-1.030 [facility] Squamous epithelial cells de tection in urine sediment by light microscopyOrdered By: Deepa Hendrickson on 03-17-2023 Epithelial cells.squamous LM Ql (Urine sed) 1-2 [HPF] 0-2 [facility] Urate [Mass/volume] in Serum or PlasmaOrdered By: Deepa Hendrickson on 03-17-2023 Urate [Mass/Vol] 5.9 mg/dL 2.3-6.6 [facility] Urea nitrogen [Mass/volume] in Serum or PlasmaOrdered By: Deepa Hendrickson on 03-17-2023 Urea nitrogen [Mass/Vol] 31 mg/dL 7-25 [facility] Urine bacteria detection by automated methodOrdered By: Deepa Hendrickson on 03-17-2023 Bacteria Auto Ql (U) None seen None Seen [facility] Urine clarity by refractomet ry automatedOrdered By: Deepa Hendrickson on 03-17-2023 Clarity Refractometry automated (U) Clear Clear [facility] Urine glucose measurement by automated test strip (mass/volume)Ordered By: Deepa Hendrickson on 03-17-2023 Glucose Auto test strip (U) [Mass/Vol] Normal mg/dL Normal [facility] Urine hemoglobin detection b y automated test stripOrdered By: Deepa Hendrickson on 03-17-2023 Hemoglobin Auto test strip Ql (U) Negative Negative [facility] Urine leukocyte esterase det ection by automated test stripOrdered By: Deepa Hendrickson on 03-17-2023 Leukocyte esterase Auto test strip Ql (U) Negative Negative [facility] Urine protein/creatinine rat ioOrdered By: Deepa Hendrickson on 03-17-2023 Protein/Creatinine (U) [Ratio] 171 mg/g{Cre} 0-200 [facility] Urobilinogen Auto test strip (U) [Mass/Vol]Ordered By: Deepa Hendrickson on 03-17-2023 Urobilinogen (U) [Mass/Vol] Normal mg/dL Normal [facility] Vitamin D+Metabolites [Mass/ volume] in Serum or PlasmaOrdered By: Deepa Hendrickson on 03-17-2023 Vitamin D+Metabolites [Mass/Vol] 73.7 ng/mL 30-100 [facility] Comment on above: VITAMIN D STATUS 25( [place])VITAMIN D RANGE (ng/mL) Deficient <20 Insufficient 20 to <30Sufficient 30 to 100Reference: Austyn MF,Jose OCONNELL, Juan VILLARREAL, et al. Evaluation,treatment, and prevention of vitamin D deficiency; an Endocrine Society clinical practice guideline. JCEM. 2010; 96(7):1911-30. pH Auto test strip (U)Ordere d By: Deepa Hendrickson on 03-17-2023 pH (U) 7.5 [pH] 5.0-9.0 [facility] 36on 11-03-2022 36 Needs appt. Normal [facility] Coding Summary.on 10-02-2022 Coding Summary. CD:[id number] W w+PGhlYWQ+ET7LLLCsZ63 qfHIwsM7uW9DKGQnZThrv DNVVOXiHCkTtcsDgWN5wy XNjZXJu IC8+LR5gNHJmQozbsIItd 2J9sQF5C63epl3qWPchbL R6YRPjKcIvhcnoz1siiYh 6IDcuNmluOyBt ORJtbK87UWZ0yO03Jw53i BOxxCZxv5qngDc2TmRuXU UvPCW4nCcjUXkpp2UfONU vR87xdBMda6C9 BCGfjZtltWXxFnLtcFL0q A7eCWvfdbdrv8yqemceAu l5mp02mMJnz3E5dSE6Z1M etmY7APQzsWUm ShryaIDDfC7coirsu1mae iczGrRkYMRoEPr9FZu7UE MuyTssBdUpPQ47QJK6ULA znbNrJ4DhNTRm bMkgAcT6j7S5Ih5LI3ADY wxfY1RWOMBMTHbehCU+PC 31qm40Y0ZrQmvqBwx8QAN tZFK9pOZ7cC0n UDWtFLvyd7Q1iXX2U6Lpl wJsmu8bj2dgYKVxGCepR2 5slJIxu3S0VYWwtIX8YDP ozMfeUxEwfP04 Oyc+OYGpyLxtb8IfCcnmv 8mlp3ljmXo8XmtwHKQmbu VqaEspEXL1z8UmAg8fEVE flJA5wHE6xC4r PrYuDuY9WJxaC918VfFem OFiXhfyX80dK3AsaDS+PH PzHvk3RORskHvnAD4jQ9J hZGRpbmctbGVm oMxaBF9nLQAqqbhcDGJzl C4aXORwO8s0QcAnHwM5XO ooS0TcNGZrdnqdZp23tZ5 yXhLzJkM8RIhc Y2ThqsU8QKEnyLWvVHrhY CX1V93lj5J4HZKgNDLfRM B4sAC8oU9qgEayqtslfBL mdDsgdmVydGlj AJriVCfqB103BTYoxDkbG kNvZGluZyBEYXRlOiAgMD MvMjMvMjAyMzwvdGQ+PHR yDUI3hTraEFZd pZSfCDzsRq5kqGywyVpxQ P3qZMWlivphGFWtvM3kSZ YkuCLetMgvGP7qFKPvwtu nf152CbGpVAS5 ZRSukZDvS6TfbO0zHtYtV ZHoBFCiK3KasZNlKUyiI4 83LGqyMiI6YTQptvHfY9S sLWFsaWduOiB0 m7G0Qh3Yr3YqkjaqJ6Tfd QUxTdKiOfxjEEn0Z6BsLa wvdHI+QQ16MJWbDL81WFp 0GRR8iJecBNsu OQJyI7LmrA8hFkDjZEAwJ GRkOyc+PHRhYmxlIHdpZH RoPScxMDAlJyBzdHlsZT0 qAa4pCCRdIABi wBeqpOSpCwZjl9vyOYHqN KwnQF5sxAnmP8HoaPQ9XU Xkn4n1Dh44C35oG7NpyPP +NAYngHV9dXA9 xU8dZvSmRxB3AKtwO412N aAylBWqYbvkn5dvb9aacU y9CkU4NQRdtsKzsFexHYK 4w5FwHm22B05x IHdpZHRoPSIxNSUiIHZhb Rkyky4quW1mCz2+PGNvbC L0zYA7xJ8pQfVaNcY4LOs rC844BzNhqSNq Mtrgw4bcw8jlhEb7XzJwJ HQgmkBzvWfbDPD6a7MfLh 50I9LuuJqik9EaOqo9bn7 3bHUnw3M5dAE2 Y1XnWSDwimuiuQSbuJjaS O6oOJNkiqvmYIEzsK7vJU UsL8d4RlQvXsN3OTjcF4Z annX1NGAocOLr RWWorEGInY7ihydyx6qhm yxyKoNoHXHoLRb3UZx8CP RvaUkpNoChMXB1FhW8IIF 8nTLwbT1kvPhc mfmhwX6aAea+EAJ9nURgg OEOCI9xDycgwYW+PHRkIH M5uAluMMihINYeoB7kHNY dS6y7QnEkTmG1 HOhkI1TspoC1IBHowHGbW ZDxtJWCoH8aqvazj3apel kvPvIlOOPpZZu5OWl7YQC saWduOiBsZWZ0 ItS1ISE6yLVsaT2ucHssh jillC1aPos+QmlydGggRG P9DQu7Y5RmLbx6PWWpcCy dMP6npZLtKTkp Ed8kjZribUguHR7fOBCjg dgiz002KiJpo3hpMYLnzB QjEFjuZEB4V53vq7C3MZX eOYBcTOT1jLY8 gD1cuLxyrmpvxPCnaCioz mUtiVpsFOnmXUozL959OG SwzCgvUnZkCJi8D7GyTnf 9PUFstBzyUT2t fWQtURhvDv9klWmbhJqkJ W0mSOMtvbfyr617KnDcr0 gsNJGpfTSgBDnbBGY4F89 ld1T0YSTgVZHn DWI7nMG0sO0inCpiypzio GVmdDsgdmVydGljYWwtYW msB404UQTlhMffUvLmzBe 0V9ReGkt6BVUu oFgdYU9hbMRuOSqiGj2ql PejwTmbMJ5lWZIewufod4 71UjQoy1kqIQRzcZLfVDf dHON1N84en3V8 ZPOgRXDjIGE3gSB2dY5vt GlnbjogbGVmdDsgdmVydG raOBjqRRjcI333WJPfsHu nPlBhdGllbnQg SLvmCEo1V3AwKeaxeRG+P M09HEQcJF05eNWkwBBpa4 qogSn4SyWmFSFiUEY6jZb vEJalq2FaCEXj N26qnTCbc4I9AXIxcIjuz TGeVhEdpIF6rM3vWGvxua spm4wnrbcwMgmfs3saks9 6dP84S17kJYpx ZHRoPSIzMCUiIHZhbGlnb a0atN7bYy4+IPEwlAO9zG J5jW3qOYYjAsZ8NRjoD81 9InRvcCIvPjxj x0xpl6xcgVk1WuM9JABfj wMjeRdvICY6n3RaQm16O8 9sIHdpZHRoPSIyMCUiIHZ ulWnmqr6bkM0t Ii8+SXAtkPY0dRO5aB7hI kCaQdA1HSigC505QzFuhX OsUgicL69yR9XcdWR+PHR eHju0TIWysEnt NG0tbXObURetWo0lHDW0S eGxGjTqVLejG6IbPNIlog cweddrdTH0YTYmGMKioI7 2Mn3qqUufBJEw oKJQoZ5pvuxvv6olpamgJ bUdJBBlCUe2MXr2OHAreP oxScDvDWR4YiK0MLZ3nXQ ojH7lhTeaaphm oC7iT8ZnKDAqoryxBr73r T6cMdKgUvW1OKoxCjb+Ul ZINhyCFotgK5RzYJ0HCMS KPC55KE07xYCg k1C9tAP1J6SyTKPxaxkyk hhufNE5YVHmHQGztL08kL GrDYghGl3yh2R9u851REH aPNDueC17Ow9v zXdtVYWzxUFVbA7pdtbps 3cibvndNsYhPZKvFOr0IT s2VHXfpJupHyLfJNX3LmI 7FRA0aFZuhC3w lOwnatnknY3xZiv+MTIvM LfcOTc6GDuhhCC+PHRkIH T7hHhdERknOXGviX5cBNO iX5i3EiBvRfF0 IXjuL6IgOYHsazjlUp62r C0xXcCuUlE3SBguK6Oyik M8AWLgvYHzVGguLTK3M31 kc0I4UNWnUUAw RJK2fUJ1hZ9rqYjieyoyg GVmdDsgdmVydGljYWwtYW svX317AVPhbMzlOefeMJf nYRTeCG95JP74 qYAlp3K3lQU1W4BsFYHwa dizppdcyVL4EMQgLXOqbT 69eYApQUgnIc7uy6K4n08 6JSHnMJDdzC55 Rg8cpUztREPqaHDCbS5xw rmss5lqlhjcRaDzHKOzIG g0MTc6WYMzqMofRzNwLXZ 3PmS0ILU3pTYp tO0lbHfmbitbtQ8wHjl+R sEwETluOY30OF05zMRhv7 R6lPH8W7IqUXEfxyuuyim xvYA1MTKnTMPf mU42oWCjCYjlBj3yw1D4b 167ALZxCHTriC06Zd9lyE oxFNYtgPSReY9xzzgae9v vcjogIzAwMDAw AGb8DVk9BSExxVqpTaBbW ED6CdQ8KOH1iWZdsF8iwW ibiqglxB1jEkf+TGFiIER gr7Lkl4JmMY90 ND44R6LxYiktyUYmdZD+P HRhYmxlIHdpZHRoPScxMD GmYpDqnEtyRM5eFp8kZOE yLWNvbGxhcHNl TvBls0tzEFXhMZnxRJ6bb JmmF9DphBH8WCZhr0i8Wr 34W41mO8RycYJ+PGNvbCB 4bZL3oY8vUyTi UsP7ZWjyG372EzSyeGBcJ npvp6dff3tyhNe9YmKnUS DnawRfzUsfNMB4r5NhKc2 6O10cOLqlRSIj BKPoSULaFOYuxAgijq9kc G9wIi8+ROPpkJO7fTP0lH 9sWtStTzS0QLsaK998OpU xdCHoCmdkJ34u F6VcoRY+NDRaAmg9DZPki AlhVR1nxWIaYCzvCb9sQR Q5EqUlNmTcLTncM4SgSQH pbmctcmlnaHQ6 WTZpVLTnwJ29Rt7atAkhL v9oWJFhNDO3VKEcsCRrR1 QxhO0qBsTmWLEoVAVmW2W piBHvTZunQ825 YCofPtV1QKSjsvKmE0MtT FMsnSpcDkS8s5A4Fp4JuV dedIQtPV2zArVvLKk4H0Q vCdh5QUAyxGlr WE2bkKDoJTjyQi7ftErgz XriWS3qIPGudlbqd690By Gqm6gzTVXstNQmUQkiFIE 4X54tz4X7AMBc UHKrYGK7zZL4uE5zsLgfp jogbGVmdDsgdmVydGljYW otHAbaC178HHSgsLeoOsA XYvz3P8WkNgy6 TRQmpFvpIQ0wiZUrJCciG e8hbZdfnTrbXP8lOANsxq cfx282KqVra8vsPYOplCW xVPneXWS1D46c l3E9AYXcYQKhWWE6rYJ9y H0jhTkmofaiwPGseUxbdr BdeNobPNyuFMphW727HOM pdIawDg2LXtf5 K7QeUix0PHXpgYpzZJ4pa RGxQOsfWu2rlOpctPaaDH 5qAMQbgbyoa918TyUqx6b kIDEwcHQgVGlt HOF2T79dh5M8BADcQZZlT UQ7pVY9wV9vvFatcxcruS VmdDsgdmVydGljYWwtYWx jE418DAGcxMmv PlBheWVyOjwvdGQ+PC90c b23A5ErSwrsJue1MTWrDF B3eDP7wZ9cDGQqODhgk6H 5hIP4M4UmcpSc jn5jc5mc (more content not included)... [facility] C Urineon 09-25-2022 Bacteria identified Cx Nom (U) Microbiology PROCEDURE: Urine Culture [R1] SOURCE: U Random BODY SITE: COLLECTED DATE/TIME: 09/23/2022 11:24 EDT RECEIVED DATE/TIME: 09/23/2022 18:09 EDT START DATE/TIME: 09/23/2022 18:09 EDT FREE TEXT SOURCE: SHONNA MO PA-C, PA-C, JENNIFER E FINAL REPORTS Final Report [] Verified Date/Time: 09/25/2022 09:26 EDT 2,000 cfu/ml Mixed skin contaminants Performing Locations R1: This test was performed at: [facility], [address] [place] [address], [phone] , [place], [facility] Comment on above: Performed By: #### [id number] #### [facility] [address] [place] [id number] Albumin [Mass/volume] in Ser um or Plasma by Bromocresol green (BCG) dye binding methoOrdered By: Deepa Hendrickson on 09-23-2022 Albumin BCG dye [Mass/Vol] 4.2 g/dL 3.5-5.7 [facility] Ambulatory Visit Summaryon 0 09-23-2022 Ambulatory Visit Summary ELLA FRANK :1940 Visit Date:09/23/2022 Ambulatory Visit Instructions Your Diagnosis Stress incontinence Recurrent UTI Postinfective urethral stricture in female Tests Performed Urnls Dip Stick Auto w/o Microscopy POC 13129 Your Care Team Attending Physician - SHONNA [...] Schedule the Following Appointments Follow Up with CHELY GAY, STEVE DUGGAN When: Where: [address] [place] [address] Medications What How Much When Instructions Unchanged [...] Urnls Dip Stick Auto w/o Microscopy POC 95079 (09/23/2022) Bilirubin Urine Dipstick - Negative Blood Urine Dipstick - Negative Glucose Urine Dipstick - Negative Ketones Urine Dipstick - Negative Leukocytes Urine Dipstick - 3+ Large Nitrite Urine Dipstick - Negative Protein Urine Dipstick - Trace Specific [place] Urine Dipstick - 1.020 Urine Appearance Urine [...] control wher (more content not included)... [facility] Automated erythrocytes count in urine sediment (number/area)Ordered By: Deepa Hendrickson on 09-23-2022 RBC Auto (Urine sed) [#/Area] 0-1 [HPF] 0-4 [facility] Automated leukocytes count i n urine sediment (number/area)Ordered By: Deepa Hendrickson on 09-23-2022 WBC Auto (Urine sed) [#/Area] 0-1 [HPF] 0-4 [facility] Basophils Auto (Bld) [#/Vol] Ordered By: David Pike on 09-23-2022 Basophils (Bld) [#/Vol] 0.0 10*3/uL 0.0-0.2 [facility] Basophils/100 WBC Auto (Bld) Ordered By: Davdi Pike on 09-23-2022 Basophils/100 WBC (Bld) 0.8 % . F [facility] Bilirubin Test strip Ql (U)O rdered By: Deepa Hendrickson on 09-23-2022 Bilirubin Ql (U) Negative Negative [facility] Calcium [Mass/volume] in Ser um or PlasmaOrdered By: Deepa Hendrickson on 09-23-2022 Calcium [Mass/Vol] 10.5 mg/dL 8.6-10.3 [facility] Carbon dioxide, total [Moles /volume] in Serum or PlasmaOrdered By: Deepa Hendrickson on 09-23-2022 CO2 [Moles/Vol] 30.8 mmol/L 21.0-31.0 [facility] Chloride [Moles/volume] in S nas or PlasmaOrdered By: Deepa Hendrickson on 09-23-2022 Chloride [Moles/Vol] 102 mmol/L 98-107 [facility] Color Auto (U)Ordered By: Ab flip Hendrickson on 09-23-2022 Color (U) Yellow Yellow [facility] Creatinine [Mass/volume] in Serum or PlasmaOrdered By: Deepa Hendrickson on 09-23-2022 Creatinine [Mass/Vol] 1.76 mg/dL 0.60-1.20 [facility] Creatinine [Mass/volume] in UrineOrdered By: Deepa Hendrickson on 09-23-2022 Creatinine (U) [Mass/Vol] 90.0 mg/dL [facility] Comment on above: No reference range e stablished Eosinophils Auto (Bld) [#/Vo l]Ordered By: David Pike on 09-23-2022 Eosinophils (Bld) [#/Vol] 0.3 10*3/uL 0.0-0.45 [facility] Eosinophils/100 WBC Auto (Bl d)Ordered By: David Piek on 09-23-2022 Eosinophils/100 WBC (Bld) 5.3 % . [facility] Erythrocyte distribution wid th Auto (RBC) [Ratio]Ordered By: David Pike on 09-23-2022 Erythrocyte distribution width (RBC) [Ratio] 13.9 % 11.9-15.3 [facility] Glucose [Mass/volume] in Ser um or PlasmaOrdered By: Deepa Hendrickson on 09-23-2022 Glucose [Mass/Vol] 111 mg/dL 74-109 [facility] Comment on above: ADA recommended refe rence rangeRandom Glucose Reference Range is dependent on time and content of last meal. Glucose of more than 200 mg/dL in a nonstressed, ambulatory subject supports the diagnosis of Diabetes Mellitus. Hematocrit Auto (Bld) [Volum e fraction]Ordered By: David Pike on 09-23-2022 Hematocrit (Bld) [Volume fraction] 37.2 % 34.0-46.4 [facility] Hemoglobin [Mass/volume] in BloodOrdered By: David Pike on 09-23-2022 Hemoglobin (Bld) [Mass/Vol] 12.9 g/dL 11.8-15.4 [facility] Ketones Auto test strip (U) [Mass/Vol]Ordered By: Deepa Hendrickson on 09-23-2022 Ketones (U) [Mass/Vol] Negative Negative [facility] - Chemistry and C hemistry - challengeOrdered By: Deepa Hendrickson on 09-23-2022 GFR/1.73 sq M.predicted MDRD (S/P/Bld) [Vol rate/Area] 28.542 mL/min/{1.73_m2} [facility] - UrinalysisOrder ed By: Deepa Hendrickson on 09-23-2022 Hyaline casts LM Ql (Urine sed) 0-8 [LPF] 0-8 [facility] Leukocytes [#/volume] correc mark for nucleated erythrocytes in Blood by Automated counOrdered By: David Pike on 09-23-2022 WBC corrected for nucl RBC Auto (Bld) [#/Vol] 5.4 10*3/uL 3.8-11.6 [facility] Lymphocytes Auto (Bld) [#/Vo l]Ordered By: David Pike on 09-23-2022 Lymphocytes (Bld) [#/Vol] 1.4 10*3/uL 1.00-4.8 [facility] Lymphocytes/100 WBC Auto (Bl d)Ordered By: David Pike on 09-23-2022 Lymphocytes/100 WBC (Bld) 25.5 % . [facility] MCH Auto (RBC) [Entitic mass ]Ordered By: David Pike on 09-23-2022 MCH (RBC) [Entitic mass] 30.2 pg 24.7-34.3 [facility] MCHC Auto (RBC) [Mass/Vol]Or dered By: David Pike on 09-23-2022 MCHC (RBC) [Mass/Vol] 34.7 g/dL 32.0-35.0 [facility] MCV Auto (RBC) [Entitic vol] Ordered By: David Pike on 09-23-2022 MCV (RBC) [Entitic vol] 87.2 fL 80-100 [facility] Magnesium [Mass/volume] in S nas or PlasmaOrdered By: Deepa Hendrickson on 09-23-2022 Magnesium [Mass/Vol] 2.3 mg/dL 1.9-2.7 [facility] Monocytes Auto (Bld) [#/Vol] Ordered By: David Pike on 09-23-2022 Monocytes (Bld) [#/Vol] 0.4 10*3/uL 0.0-0.8 [facility] Monocytes/100 WBC Auto (Bld) Ordered By: David Pike on 09-23-2022 Monocytes/100 WBC (Bld) 7.6 % . [facility] Neutrophils Auto (Bld) [#/Vo l]Ordered By: David Pike on 09-23-2022 Neutrophils (Bld) [#/Vol] 3.3 10*3/uL 1.8-7.7 [facility] Neutrophils/100 WBC Auto (Bl d)Ordered By: David Pike on 09-23-2022 Neutrophils/100 WBC (Bld) 60.8 % . [facility] Nitrite Test strip Ql (U)Ord ered By: Deepa Hendrickson on 09-23-2022 Nitrite Ql (U) Negative Negative [facility] No Panel InformationOrdered By: Deepa Hendrickson on 09-23-2022 Pharmacy Creatinine Clearance (Chem N/A [facility] Nucleated erythrocytes [Pres ence] in Blood by Automated countOrdered By: David Pike on 09-23-2022 Nucleated RBC Auto Ql (Bld) 0.2 /100{WBC} 0-0.5 [facility] Parathyrin.intact [Mass/volu me] in Serum or PlasmaOrdered By: Deepa Hendrickson on 09-23-2022 Parathyrin.intact [Mass/Vol] 11.0 pg/mL 12-88 [facility] Patient Educationon 09-24-19 Patient Education Urology Urinary [...] stimulation). ? For women, using a medical lab technologist to prevent urine leaks. This is a [...] after experiencing incontinence. General instructions ? Take [id number] and prescription medicines only as (more content not included)... Normal [facility] Phosphate [Mass/volume] in S nas or PlasmaOrdered By: Deepa Hendrickson on 09-23-2022 Phosphate [Mass/Vol] 3.7 mg/dL 3.7-7.2 [facility] Platelet mean volume Auto (B ld) [Entitic vol]Ordered By: David Pike on 09-23-2022 Platelet mean volume (Bld) [Entitic vol] 8.8 fL 6.3-10.7 [facility] Platelets Auto (Bld) [#/Vol] Ordered By: David Pike on 09-23-2022 Platelets (Bld) [#/Vol] 199 10*3/uL 150-450 [facility] Potassium [Moles/volume] in Serum or PlasmaOrdered By: Deepa Hendrickson on 09-23-2022 Potassium [Moles/Vol] 3.7 mmol/L 3.5-5.1 [facility] Protein Auto test strip (U) [Mass/Vol]Ordered By: Deepa Hendrickson on 09-23-2022 Protein (U) [Mass/Vol] Negative Negative [facility] Protein [Mass/volume] in Uri neOrdered By: Deepa Hendrickson on 09-23-2022 Protein (U) [Mass/Vol] 12 mg/dL 0-9 [facility] RBC Auto (Bld) [#/Vol]Ordere d By: David Pike on 09-23-2022 RBC (Bld) [#/Vol] 4.27 10*6/uL 3.60-5.00 [facility] Serum or plasma anion gap de terminationOrdered By: Deepa Hendrickson on 09-23-2022 Anion gap [Moles/Vol] 12.9 mmol/L 6.0-15.0 [facility] Sodium [Moles/volume] in Ser um or PlasmaOrdered By: Deepa Hendrickson on 09-23-2022 Sodium [Moles/Vol] 142 mmol/L 136-145 [facility] Specific gravity Auto test s trip (U) [Rel density]Ordered By: Deepa Hendrickson on 09-23-2022 Specific gravity (U) [Rel density] 1.013 1.001-1.030 [facility] Squamous epithelial cells de tection in urine sediment by light microscopyOrdered By: Deepa Hendrickson on 09-23-2022 Epithelial cells.squamous LM Ql (Urine sed) None seen [HPF] 0-2 [facility] Thyrotropin [Units/volume] i n Serum or PlasmaOrdered By: David Pike on 09-23-2022 TSH Qn 4.66 m[IU]/L 0.45-5.33 [facility] Thyroxine (T4) free [Mass/vo lume] in Serum or PlasmaOrdered By: David Pike on 09-23-2022 Free T4 [Mass/Vol] 1.03 ng/dL 0.61-1.12 [facility] Urate [Mass/volume] in Serum or PlasmaOrdered By: Deepa Hendrickson on 09-23-2022 Urate [Mass/Vol] 7.8 mg/dL 2.3-6.6 [facility] Urea nitrogen [Mass/volume] in Serum or PlasmaOrdered By: Deepa Hendrickson on 09-23-2022 Urea nitrogen [Mass/Vol] 33 mg/dL 7-25 [facility] Urine bacteria detection by automated methodOrdered By: Deepa Hendrickson on 09-23-2022 Bacteria Auto Ql (U) None seen None Seen [facility] Urine clarity by refractomet ry automatedOrdered By: Deepa Hendrickson on 09-23-2022 Clarity Refractometry automated (U) Cloudy Clear [facility] Urine glucose measurement by automated test strip (mass/volume)Ordered By: Deepa Hendrickson on 09-23-2022 Glucose Auto test strip (U) [Mass/Vol] Normal mg/dL Normal [facility] Urine hemoglobin detection b y automated test stripOrdered By: Deepa Hendrickson on 09-23-2022 Hemoglobin Auto test strip Ql (U) Negative Negative [facility] Urine leukocyte esterase det ection by automated test stripOrdered By: Deepa Hendrickson on 09-23-2022 Leukocyte esterase Auto test strip Ql (U) Negative Negative [facility] Urine protein/creatinine rat ioOrdered By: Deepa Hendrickson on 09-23-2022 Protein/Creatinine (U) [Ratio] 133 mg/g{Cre} 0-200 [facility] Urobilinogen Auto test strip (U) [Mass/Vol]Ordered By: Deepa Hendrickson on 09-23-2022 Urobilinogen (U) [Mass/Vol] Normal mg/dL Normal [facility] Vitamin B12 ser/plasOrdered By: David Pike on 09-23-2022 Cobalamin (Vitamin B12) [Mass/Vol] 1245 pg/mL 180-914 [facility] Vitamin D+Metabolites [Mass/ volume] in Serum or PlasmaOrdered By: Deepa Hendrickson on 09-23-2022 Vitamin D+Metabolites [Mass/Vol] 59.0 ng/mL 30-100 [facility] Comment on above: VITAMIN D STATUS 25( [place])VITAMIN D RANGE (ng/mL) Deficient <20 Insufficient 20 to <30Sufficient 30 to 100Reference: Austyn MF,Jose NC, Juan VILLARREAL, et al. Evaluation,treatment, and prevention of vitamin D deficiency; an Endocrine Society clinical practice guideline. JCEM. 2010; 96(7):1911-30. WBC Auto (Bld) [#/Vol]Ordere d By: David Pike on 09-23-2022 WBC (Bld) [#/Vol] 5.4 10*3/uL 3.8-11.6 [facility] pH Auto test strip (U)Ordere d By: Deepa Hendrickson on 09-23-2022 pH (U) 7.0 [pH] 5.0-9.0 [facility] Automated erythrocytes count in urine sediment (number/area)Ordered By: Deepa Hendrickson on 03-19-2022 RBC Auto (Urine sed) [#/Area] 0-1 [HPF] 0-4 [facility] Automated leukocytes count i n urine sediment (number/area)Ordered By: Deepa Hendrickson on 03-19-2022 WBC Auto (Urine sed) [#/Area] 10-19 [HPF] 0-4 [facility] Bilirubin Test strip Ql (U)O rdered By: Deepa Hendrickson on 03-19-2022 Bilirubin Ql (U) Negative Negative [facility] Blood hemoglobin measurement (mass/volume)Ordered By: Deepa Hendrickson on 03-19-2022 Hemoglobin (Bld) [Mass/Vol] 12.0 g/dL 11.8-15.4 [facility] Body fluid albumin measureme nt (mass/volume)Ordered By: Deepa Hendrickson on 03-19-2022 Albumin (Body fld) [Mass/Vol] 3.6 g/dL 3.2-5.5 [facility] Color Auto (U)Ordered By: Ab flip Hendrickson on 03-19-2022 Color (U) Yellow Yellow [facility] Creatinine [Mass/volume] in UrineOrdered By: Deepa Hendrickson on 03-19-2022 Creatinine (U) [Mass/Vol] 135.4 mg/dL [facility] Comment on above: No reference range e stablished Creatinine and Glomerular fi ltration rate.predicted panel (S/P/Bld)Ordered By: Deepa Hendrickson on 03-19-2022 Creatinine [Mass/Vol] 1.73 mg/dL 0.44-1.03 [facility] Erythrocyte distribution wid th Auto (RBC) [Ratio]Ordered By: Deepa Hendrickson on 03-19-2022 Erythrocyte distribution width (RBC) [Ratio] 14.2 % 11.9-15.3 [facility] Estimated glomerular filtrat ion rate (GFR) non- AmericanOrdered By: Deepa Hendrickson on 03-19-2022 GFR/1.73 sq M.predicted among non-blacks MDRD (S/P/Bld) [Vol rate/Area] 28 mL/Min [facility] Hematocrit Auto (Bld) [Volum e fraction]Ordered By: Deepa Hendrickson on 03-19-2022 Hematocrit (Bld) [Volume fraction] 36.1 % 34.0-46.4 [facility] Ketones Auto test strip (U) [Mass/Vol]Ordered By: Deepa Hendrickson on 03-19-2022 Ketones (U) [Mass/Vol] Negative Negative [facility] - Chemistry and C hemistry - challengeOrdered By: Deepa Hendrickson on 03-19-2022 Magnesium [Mass/Vol] 2.2 mg/dL 1.6-2.6 [facility] - UrinalysisOrder ed By: Deepa Hendrickson on 03-19-2022 Hyaline casts LM Ql (Urine sed) 0-8 [LPF] 0-8 [facility] MCH Auto (RBC) [Entitic mass ]Ordered By: Deepa Hendrickson on 03-19-2022 MCH (RBC) [Entitic mass] 30.0 pg 24.7-34.3 [facility] MCHC Auto (RBC) [Mass/Vol]Or dered By: Deepa Hendrickson on 03-19-2022 MCHC (RBC) [Mass/Vol] 33.2 g/dL 32.0-35.0 [facility] MCV Auto (RBC) [Entitic vol] Ordered By: Deepa Hendrickson on 03-19-2022 MCV (RBC) [Entitic vol] 90.3 fL 80-100 F [facility] Nitrite Test strip Ql (U)Ord ered By: Deepa Hendrickson on 03-19-2022 Nitrite Ql (U) Negative Negative [facility] No Panel InformationOrdered By: Deepa Hendrickson on 03-19-2022 25-Hydroxy Vitamin D Total 77.3 ng/mL 30-100 [facility] Comment on above: VITAMIN D STATUS 25( [place])VITAMIN D RANGE (ng/mL) Deficient <20 Insufficient 20 to <30 Sufficient 30 to 100 Reference: Austyn MF,Jose OCONNELL, Juan VILLARREAL, et al. Evaluation,treatment, and prevention of vitamin D deficiency; an Endocrine Society clinical practice guideline. JCEM. 2010; 96(7):1911-30. Estimated GFR () 34 mL/Min [facility] Comment on above: GFR estimated refere nce range: According to KDOQI guidelines, <60 ml/min/1.73m2 is sufficient to diagnose a patient with chronic kidney disease. Pharmacy Creatinine Clearance (Chem N/A [facility] Phosphate [Mass/volume] in S nas or PlasmaOrdered By: Deepa Hendrickson on 03-19-2022 Phosphate [Mass/Vol] 4.1 mg/dL 2.5-4.6 [facility] Platelet mean volume Auto (B ld) [Entitic vol]Ordered By: Deepa Hendrickson on 03-19-2022 Platelet mean volume (Bld) [Entitic vol] 9.1 fL 6.3-10.7 [facility] Platelets Auto (Bld) [#/Vol] Ordered By: Deepa Hendrickson on 03-19-2022 Platelets (Bld) [#/Vol] 242 10*3/uL 150-450 [facility] Protein Auto test strip (U) [Mass/Vol]Ordered By: Deepa Hendrickson on 03-19-2022 Protein (U) [Mass/Vol] Negative Negative [facility] Protein [Mass/volume] in Uri neOrdered By: Deepa Hendrickson on 03-19-2022 Protein (U) [Mass/Vol] 13 mg/dL 0-9 [facility] RBC Auto (Bld) [#/Vol]Ordere d By: Deepa Hendrickson on 03-19-2022 RBC (Bld) [#/Vol] 4.00 10*6/uL 3.60-5.00 [facility] Serum or plasma anion gap de terminationOrdered By: Deepa Hendrickson on 03-19-2022 Anion gap [Moles/Vol] 15.0 mmol/L 6.0-15.0 [facility] Serum or plasma calcium shania urement (mass/volume)Ordered By: Deepa Hendrickson on 03-19-2022 Calcium [Mass/Vol] 10.0 mg/dL 8.2-10.2 [facility] Serum or plasma chloride michael surement (moles/volume)Ordered By: Deepa Hendrickson on 03-19-2022 Chloride [Moles/Vol] 99 mmol/L 95-114 [facility] Serum or plasma glucose shania urement (mass/volume)Ordered By: Deepa Hendrickson on 03-19-2022 Glucose [Mass/Vol] 107 mg/dL 70-100 [facility] Comment on above: ADA recommended refe rence range Random Glucose Reference Range is dependent on time and content of last meal. Glucose of more than 200 mg/dL in a nonstressed, ambulatory subject supports the diagnosis of Diabetes Mellitus. Serum or plasma intact parat hyroid hormone measurement (mass/volume)Ordered By: Deepa Hendrickson on 03-19-2022 Parathyrin.intact [Mass/Vol] 25.4 pg/mL [facility] Serum or plasma potassium me asurement (moles/volume)Ordered By: Deepa Hendrickson on 03-19-2022 Potassium [Moles/Vol] 4.3 mmol/L 3.5-5.1 [facility] Serum or plasma sodium measu rement (moles/volume)Ordered By: Deepa Hendrickson on 03-19-2022 Sodium [Moles/Vol] 140 mmol/L 136-146 [facility] Serum or plasma total carbon dioxide measurement (moles/volume)Ordered By: Deepa Hendrickson on 03-19-2022 CO2 [Moles/Vol] 30.3 mmol/L 22.0-30.0 [facility] Serum or plasma urea nitroge n measurement (mass/volume)Ordered By: Deepa Hendrickson on 03-19-2022 Urea nitrogen [Mass/Vol] 35 mg/dL 04-04 [facility] Specific gravity Auto test s trip (U) [Rel density]Ordered By: Deepa Hendrickson on 03-19-2022 Specific gravity (U) [Rel density] 1.017 1.001-1.030 [facility] Squamous epithelial cells de tection in urine sediment by light microscopyOrdered By: Deepa Hendrickson on 03-19-2022 Epithelial cells.squamous LM Ql (Urine sed) 3-4 [HPF] 0-2 [facility] Urine bacteria detection by automated methodOrdered By: Deepa Hendrickson on 03-19-2022 Bacteria Auto Ql (U) None seen None Seen [facility] Urine clarity by refractomet ry automatedOrdered By: Deepa Hendrickson on 03-19-2022 Clarity Refractometry automated (U) Clear Clear [facility] Urine glucose measurement by automated test strip (mass/volume)Ordered By: Deepa Hendrickson on 03-19-2022 Glucose Auto test strip (U) [Mass/Vol] Normal mg/dL Normal [facility] Urine hemoglobin detection b y automated test stripOrdered By: Deepa Hendrickson on 03-19-2022 Hemoglobin Auto test strip Ql (U) Negative Negative [facility] Urine leukocyte esterase det ection by automated test stripOrdered By: Deepa Hendrickson on 03-19-2022 Leukocyte esterase Auto test strip Ql (U) 2+ Negative [facility] Urine protein/creatinine rat ioOrdered By: Deepa Hendrickson on 03-19-2022 Protein/Creatinine (U) [Ratio] 96 mg/g{Cre} 0-200 [facility] Urobilinogen Auto test strip (U) [Mass/Vol]Ordered By: Deepa Hendrickson on 03-19-2022 Urobilinogen (U) [Mass/Vol] Normal mg/dL Normal [facility] WBC Auto (Bld) [#/Vol]Ordere d By: Deepa Hendrickson on 03-19-2022 WBC (Bld) [#/Vol] 5.8 10*3/uL 3.8-11.6 [facility] pH Auto test strip (U)Ordere d By: Deepa Hendrickson on 03-19-2022 pH (U) 6.5 [pH] 5.0-9.0 [facility] CULTURE URINEon 03-18-2022 CULTURE URINE Culture Observations : NO GROWTH. Normal [facility] Comment on above: Performed By: #### F T4 #### [facility] [address] [place] [address] Dr. Ana Maria Sellers CULTURE URINEon 03-07-2022 [...] Trimethoprim/Sulfamet hoxazole <=20 S F Normal [facility] Comment on above: Performed By: #### F T4 #### [facility] [address] [place] [address] Dr. Ana Maria Sellers UA RANDOM W/MICROSCOPICon BACTERIA SMALL Abnormal NONE SEEN [facility] Comment on above: Performed By: #### F T4 #### [facility] [address] [place] [address] Dr. Ana Maria Sellers Bilirubin Ql (U) Negative Normal NEGATIVE [facility] Comment on above: Performed By: #### F T4 #### [facility] [address] [place] [address] Dr. Ana Maria Sellers CAST NONE SEEN Normal NONE SEEN [facility] Comment on above: Performed By: #### F T4 #### [facility] [address] [place] [address] Dr. Ana Maria Sellers Clarity (U) CLEAR Normal CLEAR [facility] Comment on above: Performed By: #### F T4 #### [facility] [address] [place] [address] Dr. Ana Maria Sellers Color (U) LT. YELLOW Normal YELLOW [facility] Comment on above: Performed By: #### F T4 #### [facility] [address] [place] [address] Dr. Ana Maria Sellers Crystals LM Nom (Urine sed) NONE SEEN Normal NONE SEEN [facility] Comment on above: Performed By: #### F T4 #### [facility] [address] [place] [address] Dr. Ana Maria Sellers Epithelial cells LM Ql (Urine sed) FEW Abnormal NONE SEEN /RARE [facility] Comment on above: Performed By: #### F T4 #### [facility] [address] [place] [address] Dr. Ana Maria Sellers Glucose Ql (U) Negative Normal NEGATIVE [facility] Comment on above: Performed By: #### F T4 #### [facility] [address] [place] [address] Dr. Ana Maria Sellers Hemoglobin Ql (U) LARGE Abnormal NEGATIVE [facility] Comment on above: Performed By: #### F T4 #### [facility] [address] [place] [address] Dr. Ana Maria Sellers Ketones Ql (U) Negative Normal NEGATIVE [facility] Comment on above: Performed By: #### F T4 #### [facility] [address] [place] [address] Dr. Ana Maria Sellers LEUKOCYTES LARGE Abnormal NEGATIVE [facility] Comment on above: Performed By: #### F T4 #### [facility] [address] [place] [address] Dr. Ana Maria Sellers MUCOUS NONE SEEN Normal NONE SEEN [facility] Comment on above: Performed By: #### F T4 #### [facility] [address] [place] [address] Dr. Ana Maria Sellers Nitrite Ql (U) Negative Normal NEGATIVE [facility] Comment on above: Performed By: #### F T4 #### [facility] [address] [place] [address] Dr. Ana Maria Sellers pH (U) 6.0 [pH] Normal 5-9 [facility] Comment on above: Performed By: #### F T4 #### [facility] [address] [place] [address] Dr. Ana Maria Sellers RBC 10-20 Abnormal 0-2 [facility] Comment on above: Performed By: #### F T4 #### [facility] [address] [place] [address] Dr. Ana Maria Sellers SPEC GRAVITY 1.020 Normal 1.005-<=1.0 25 [facility] Comment on above: Performed By: #### F T4 #### [facility] [address] [place] [address] Dr. Ana Maria Sellers UA PROTEIN >300 Abnormal NEGATIVE/ TRACE [facility] Comment on above: Performed By: #### F T4 #### [facility] [address] [place] [address] Dr. Ana Maria Sellers Urobilinogen Qn (U) 0.2 {Chavez'U}/dL Normal 0.2 - 1. 0 [facility] Comment on above: Performed By: #### F T4 #### [facility] [address] [place] [address] Dr. Ana Maria Sellers WBC (U) [#/Vol] /uL Abnormal NONE SEEN [facility] Comment on above: Performed By: #### F T4 #### [facility] [address] [place] [address] Dr. Ana Maria Sellers CBC AUTO DIFFon 02-20-2022 BASO # 0.0 103/ul Normal 0.0-0.1 [facility] Comment on above: Performed By: #### F T4 #### [facility] [address] [place] [address] Dr. Ana Maria Sellers Basophils/100 WBC (Bld) 0.2 % Normal 0.2-2.0 [facility] Comment on above: Performed By: #### F T4 #### [facility] [address] [place] [address] Dr. Ana Maria Sellers EO # 0.0 103/ul Normal 0.0-0.7 [facility] Comment on above: Performed By: #### F T4 #### [facility] [address] [place] [address] Dr. Ana Maria Sellers Eosinophils/100 WBC (Bld) 0.4 % Critically low 0.9-7.0 [facility] Comment on above: Performed By: #### F T4 #### [facility] [address] [place] [address] Dr. Ana Maria Sellers Erythrocyte distribution width (RBC) [Ratio] 12.9 % Normal 11.0-15.0 [facility] Comment on above: Performed By: #### F T4 #### [facility] [address] [place] [address] Dr. Ana Maria Sellers Hematocrit (Bld) [Volume fraction] 38.6 % Normal 36.0-48.0 [facility] Comment on above: Performed By: #### F T4 #### [facility] [address] [place] [address] Dr. Ana Maria Sellers Hemoglobin (Bld) [Mass/Vol] 12.8 g/dL Normal 12.0-16.0 [facility] Comment on above: Performed By: #### F T4 #### [facility] [facility] [address] [place] [address] Dr. Ana Maria Sellers IG # 0.04 10e3/ul Critically high 0.00-0.03 [facility] Comment on above: Performed By: #### F T4 #### [facility] [address] [place] [address] Dr. Ana Maria Sellers IG % 0.4 % Normal 0.0-0.5 [facility] Comment on above: Performed By: #### F T4 #### [facility] [address] [place] [address] Dr. Ana Maria Sellers LYMPH # 1.9 103/ul Normal 1.2-3.8 [facility] Comment on above: Performed By: #### F T4 #### [facility] [address] [place] [address] Dr. Ana Maria Sellers Lymphocytes/100 WBC (Bld) 17.8 % Critically low 20.5-60.0 [facility] Comment on above: Performed By: #### F T4 #### [facility] [address] [place] [address] Dr. Ana Maria Sellers MANUAL DIFF REQ NO Normal [facility] Comment on above: Performed By: #### F T4 #### [facility] [address] [place] [address] Dr. Ana Maria Sellers MCH (RBC) [Entitic mass] 30.0 pg Normal 26.7-34.0 [facility] Comment on above: Performed By: #### F T4 #### [facility] [address] [place] [address] Dr. Ana Maria Sellers MCHC (RBC) [Mass/Vol] 33.2 g/dL Normal 29.9-35.2 [facility] Comment on above: Performed By: #### F T4 #### [facility] [address] [place] [address] Dr. Ana Maria Sellers MCV (RBC) [Entitic vol] 90.6 fL Normal 81.0-99.0 [facility] Comment on above: Performed By: #### F T4 #### [facility] [address] [place] [address] Dr. Ana Maria Sellers MONO # 0.6 103/ul Normal 0.3-0.8 [facility] Comment on above: Performed By: #### F T4 #### [facility] [address] [place] [address] Dr. Ana Maria Sellers Monocytes/100 WBC (Bld) 5.4 % Normal 1.7-12.0 [facility] Comment on above: Performed By: #### F T4 #### [facility] [address] [place] [address] Dr. Ana Maria Sellers NEUT # 8.1 103/ul Critically high 1.4-6.5 [facility] Comment on above: Performed By: #### F T4 #### [facility] [address] [place] [address] Dr. Ana Maria Sellers Neutrophils/100 WBC (Bld) 75.8 % Critically high 43.0-75.0 [facility] Comment on above: Performed By: #### F T4 #### [facility] [address] [place] [address] Dr. Ana Maria Sellers Platelet mean volume (Bld) [Entitic vol] 10.0 fL Normal 9.5-13.5 [facility] Comment on above: Performed By: #### F T4 #### [facility] [address] [place] [address] Dr. Ana Maria Sellers PLT 336 103/ul Normal 150-450 [facility] Comment on above: Performed By: #### F T4 #### [facility] [address] [place] [address] Dr. Ana Maria Sellers RBC 4.26 106/ul Normal 4.20-5.40 [facility] Comment on above: Performed By: #### F T4 #### [facility] [address] [place] [address] Dr. Ana Maria Sellers WBC 10.7 103/ul Normal 4.0-11.0 [facility] Comment on above: Performed By: #### F T4 #### [facility] [address] [place] [address] Dr. Ana Maria Sellers FREE T4on 02-20-2022 Free T4 [Mass/Vol] 1.06 ng/dL Normal 0.76-1.46 [facility] Comment on above: Performed By: #### F T4 #### [facility] [address] [place] [address] Dr. Ana Maria Sellers LIPASEon 02-20-2022 Lipase [Catalytic activity/Vol] 175.0 U/L Normal 73.0-393.0 [facility] Comment on above: Performed By: #### L IPA, TSH, CMP #### [facility] [address] [place] [address] Dr. Ana Maria Sellers PROF 14(COMP METB)on 022 Albumin [Mass/Vol] 3.6 g/dL Normal 3.4-5.0 [facility] Comment on above: Performed By: #### L IPA, TSH, CMP #### [facility] [address] [place] [address] Dr. Ana Maria Sellers Albumin/Globulin [Mass ratio] 1.0 {ratio} Normal [facility] Comment on above: Performed By: #### L IPA, TSH, CMP #### [facility] [address] [place] [address] Dr. Ana Maria Sellers ALP [Catalytic activity/Vol] 63 U/L Normal 46-116 [facility] Comment on above: Performed By: #### L IPA, TSH, CMP #### [facility] [address] [place] [address] Dr. Ana Maria Sellers ALT [Catalytic activity/Vol] 15 U/L Normal 14-59 [facility] Comment on above: Performed By: #### L IPA, TSH, CMP #### [facility] [address] [address] [address] Ana Maria Sellers Anion gap [Moles/Vol] 15.2 mmol/L Normal [facility] Comment on above: Performed By: #### L IPA, TSH, CMP #### [facility] [address] [address] [address] Ana Maria Sellers AST [Catalytic activity/Vol] 10 U/L Critically low 15-37 [facility] Comment on above: Performed By: #### L IPA, TSH, CMP #### [facility] [address] [address] [address] Ana Maria Sellers Bilirubin [Mass/Vol] 0.5 mg/dL Normal 0.2-1.0 [facility] Comment on above: Performed By: #### L IPA, TSH, CMP #### [facility] [address] [address] [address] Ana Maria Sellers Calcium [Mass/Vol] 9.5 mg/dL Normal 8.5-10.1 [facility] Comment on above: Performed By: #### L IPA, TSH, CMP #### [facility] [address] [address] [address] Ana Maria Sellers Chloride [Moles/Vol] 98 mmol/L Normal 98-107 [facility] Comment on above: Performed By: #### L IPA, TSH, CMP #### [facility] [address] [address] [address] Ana Maria Sellers CO2 [Moles/Vol] 25.4 mmol/L Normal 21.0-32.0 [facility] Comment on above: Performed By: #### L IPA, TSH, CMP #### [facility] [address] [address] [address] Ana Maria Sellers Creatinine [Mass/Vol] 3.15 mg/dL Critically high 0.55-1.02 [facility] Comment on above: Performed By: #### L IPA, TSH, CMP #### [facility] [address] [address] [address] Ana Maria Sellers EGFR-AF BELARUSIAN 17 mL/min/1.73m2 Critically low >=60 [facility] Comment on above: Performed By: #### L IPA, TSH, CMP #### [facility] [address] [address] [address] Ana Maria Sellers EGFR-NON AF BELARUSIAN 14 mL/min/1.73m2 Critically low >=60 [facility] Comment on above: Performed By: #### L IPA, TSH, CMP #### [facility] [address] [place] [address] Dr. Ana Maria Sellers Globulin (S) [Mass/Vol] 3.5 g/dL Normal [facility] Comment on above: Performed By: #### L IPA, TSH, CMP #### [facility] [address] [place] [address] Dr. Ana Maria Sellers Glucose [Mass/Vol] 132 mg/dL Critically high 74-106 [facility] Comment on above: Performed By: #### L IPA, TSH, CMP #### [facility] [address] [place] [address] Dr. Ana Maria Sellers Potassium [Moles/Vol] 4.6 mmol/L Normal 3.5-5.1 [facility] Comment on above: Performed By: #### L IPA, TSH, CMP #### [facility] [address] [place] [address] Dr. Ana Maria Sellers Protein [Mass/Vol] 7.1 g/dL Normal 6.4-8.2 [facility] Comment on above: Performed By: #### L IPA, TSH, CMP #### [facility] [address] [place] [address] Dr. Ana Maria Sellers Sodium [Moles/Vol] 134 mmol/L Critically low 136-145 [facility] Comment on above: Performed By: #### L IPA, TSH, CMP #### [facility] [address] [place] [address] Dr. Ana Maria Sellers Urea nitrogen [Mass/Vol] 57.0 mg/dL Critically high 7.0-18.0 [facility] Comment on above: Performed By: #### L IPA, TSH, CMP #### [facility] [address] [place] [address] Dr. Ana Maria Sellers Urea nitrogen/Creatinine [Mass ratio] 18.1 mg/mg Normal [facility] Comment on above: Performed By: #### L IPA, TSH, CMP #### [facility] [address] [place], [place] [address] Dr. Ana Maria Sellers TSHon 02-20-2022 TSH 3.015 uIU/mL Normal 0.358-3.740 [facility] Comment on above: Performed By: #### L IPA, TSH, CMP #### [facility] [address] [place], [place] [address] Dr. Ana Maria Sellers Covid-19 PCR ([facility])on 01-11 SARS-CoV-2 (COVID-19) RNA ARLEEN+probe Ql (Unsp spec) Detected Critically abnormal NOT DETECTED [facility] Comment on above: Result Comment: This test is not yet approved or cleared by the [place] FDA. When there are no FDA-approved or cleared tests available, and other criteria are met, FDA can make tests available under an emergency access mechanism called an Emergency Use Authorization (EUA). The EUA for this test is supported by the [employer] of Health and Human Service's (HHS's) declaration [...] used). Performed By: #### C VDTBH #### [facility] [address] [place], [place] [address] Dr. Ana Maria Sellers VIT D 1 25 DIHYDROXYon 12-13 Calcitriol(1,25 di-OH Vit D) 57.7 pg/mL Normal 19.9-79.3 [facility] Comment on above: Result Comment: Ef fective December 16, 2021 Calcitriol(1,25 di-OH Vit D) reference interval will be changing to: pg/mL . 0 - 6 months: 44.3 - 212.9 7 months - 1 year: 40.3 - 112.4 >1 year: 24.8 - 81.5 Performed By: #### F T4 #### [facility] [address] [place] [address] Dr. Ana Maria Sellers CBC AUTO DIFFon 12-11-2021 BASO # 0.0 103/ul Normal 0.0-0.1 [facility] Comment on above: Performed By: #### F T4 #### [facility] [address] [place] [address] Dr. Ana Maria Sellers Basophils/100 WBC (Bld) 0.8 % Normal 0.2-2.0 [facility] Comment on above: Performed By: #### F T4 #### [facility] [address] [place] [address] Dr. Ana Maria Sellers EO # 0.2 103/ul Normal 0.0-0.7 [facility] Comment on above: Performed By: #### F T4 #### [facility] [address] [place] [address] Dr. Ana Maria Sellers Eosinophils/100 WBC (Bld) 3.3 % Normal 0.9-7.0 [facility] Comment on above: Performed By: #### F T4 #### [facility] [address] [place] [address] Dr. Ana Maria Sellers Erythrocyte distribution width (RBC) [Ratio] 13.0 % Normal 11.0-15.0 [facility] Comment on above: Performed By: #### F T4 #### [facility] [address] [place] [address] Dr. Ana Maria Sellers Hematocrit (Bld) [Volume fraction] 37.8 % Normal 36.0-48.0 [facility] Comment on above: Performed By: #### F T4 #### [facility] [address] [place] [address] Dr. Ana Maria Sellers Hemoglobin (Bld) [Mass/Vol] 12.5 g/dL Normal 12.0-16.0 [facility] Comment on above: Performed By: #### F T4 #### [facility] [address] [place] [address] Dr. Ana Maria Sellers IG # 0.01 10e3/ul Normal 0.00-0.03 [facility] Comment on above: Performed By: #### F T4 #### [facility] [address] [place] [address] Dr. Ana Maria Sellers IG % 0.2 % Normal 0.0-0.5 [facility] Comment on above: Performed By: #### F T4 #### [facility] [address] [place] [address] Dr. Ana Maria Sellers LYMPH # 1.4 103/ul Normal 1.2-3.8 [facility] Comment on above: Performed By: #### F T4 #### [facility] [address] [place] [address] Dr. Ana Maria Sellers Lymphocytes/100 WBC (Bld) 27.1 % Normal 20.5-60.0 [facility] Comment on above: Performed By: #### F T4 #### [facility] [address] [place] [address] Dr. Ana Maria Sellers MANUAL DIFF REQ NO Normal [facility] Comment on above: Performed By: #### F T4 #### [facility] [address] [place] [address] Dr. Ana Maria Sellers MCH (RBC) [Entitic mass] 29.8 pg Normal 26.7-34.0 [facility] Comment on above: Performed By: #### F T4 #### [facility] [address] [place] [address] Dr. Ana Maria Sellers MCHC (RBC) [Mass/Vol] 33.1 g/dL Normal 29.9-35.2 [facility] Comment on above: Performed By: #### F T4 #### [facility] [address] [place] [address] Dr. Ana Maria Sellers MCV (RBC) [Entitic vol] 90.2 fL Normal 81.0-99.0 [facility] Comment on above: Performed By: #### F T4 #### [facility] [address] [place] [address] Dr. Ana Maria Sellers MONO # 0.4 103/ul Normal 0.3-0.8 [facility] Comment on above: Performed By: #### F T4 #### [facility] [address] [address] [address] Ana Maria Sellers Monocytes/100 WBC (Bld) 7.1 % Normal 1.7-12.0 [facility] Comment on above: Performed By: #### F T4 #### [facility] [address] [address] [address] Ana Maria Sellers NEUT # 3.1 103/ul Normal 1.4-6.5 [facility] Comment on above: Performed By: #### F T4 #### [facility] [address] [place] [address] Dr. Ana Maria Sellers Neutrophils/100 WBC (Bld) 61.5 % Normal 43.0-75.0 [facility] Comment on above: Performed By: #### F T4 #### [facility] [address] [place] [address] Dr. Ana Maria Sellers Platelet mean volume (Bld) [Entitic vol] 10.4 fL Normal 9.5-13.5 [facility] Comment on above: Performed By: #### F T4 #### [facility] [address] [place] [address] Dr. Ana Maria Sellers PLT 237 103/ul Normal 150-450 [facility] Comment on above: Performed By: #### F T4 #### [facility] [address] [place] [address] Dr. Ana Maria Sellers RBC 4.19 106/ul Critically low 4.20-5.40 [facility] Comment on above: Performed By: #### F T4 #### [facility] [address] [place] [address] Dr. Ana Maria Sellers WBC 5.1 103/ul Normal 4.0-11.0 [facility] Comment on above: Performed By: #### F T4 #### [facility] [address] [place] [address] Dr. Ana Maria Sellers CULTURE URINEon 12-11-2021 CULTURE URINE Culture Observations : LIGHT GROWTH OF MIXED GENITAL JOCY. NO POTENTIAL PATHOGENS SEEN. Normal [facility] Comment on above: Performed By: #### F T4 #### [facility] [address] [place] [address] Dr. Ana Maria Sellers FREE T4on 12-11-2021 Free T4 [Mass/Vol] 1.24 ng/dL Normal 0.76-1.46 [facility] Comment on above: Performed By: #### F T4 #### [facility] [address] [place] [address] Dr. Ana Maria Sellers MICROALBUMIN, RAND URon 06-0 mALB <1.3 Normal <=30.0 [facility] Comment on above: Performed By: #### F T4 #### [facility] [address] [place] [address] Dr. Ana Maria Sellers PROF 14(COMP METB)on 022 Albumin [Mass/Vol] 3.7 g/dL Normal 3.4-5.0 [facility] Comment on above: Performed By: #### C MP, TSH #### [facility] [address] [place] [address] Dr. Ana Maria Sellers Albumin/Globulin [Mass ratio] 1.1 {ratio} Normal [facility] Comment on above: Performed By: #### C MP, TSH #### [facility] [address] [place] [address] Dr. Ana Maria Sellers ALP [Catalytic activity/Vol] 82 U/L Normal 46-116 [facility] Comment on above: Performed By: #### C MP, TSH #### [facility] [address] [place] [address] Dr. Ana Marai Sellers ALT [Catalytic activity/Vol] 15 U/L Normal 14-59 [facility] Comment on above: Performed By: #### C MP, TSH #### [facility] [address] [place] [address] Dr. Ana Maria Sellers Anion gap [Moles/Vol] 13.4 mmol/L Normal [facility] Comment on above: Performed By: #### C MP, TSH #### [facility] [address] [place] [address] Dr. Ana Maria Sellers AST [Catalytic activity/Vol] 14 U/L Critically low 15-37 [facility] Comment on above: Performed By: #### C MP, TSH #### [facility] [address] [place] [address] Dr. Ana Maria Sellers Bilirubin [Mass/Vol] 0.6 mg/dL Normal 0.2-1.0 [facility] Comment on above: Performed By: #### C MP, TSH #### [facility] [address] [place] [address] Dr. Ana Maria Sellers Calcium [Mass/Vol] 9.0 mg/dL Normal 8.5-10.1 [facility] Comment on above: Performed By: #### C MP, TSH #### [facility] [address] [place] [address] Dr. Ana Maria Sellers Chloride [Moles/Vol] 104 mmol/L Normal 98-107 [facility] Comment on above: Performed By: #### C MP, TSH #### [facility] [address] [place] [address] Dr. Ana Maria Sellers CO2 [Moles/Vol] 27.7 mmol/L Normal 21.0-32.0 [facility] Comment on above: Performed By: #### C MP, TSH #### [facility] [address] [place] [address] Dr. Ana Maria Sellers Creatinine [Mass/Vol] 1.99 mg/dL Critically high 0.55-1.02 [facility] Comment on above: Performed By: #### C MP, TSH #### [facility] [address] [place] [address] Dr. Ana Maria Sellers EGFR-AF BELARUSIAN 29 mL/min/1.73m2 Critically low >=60 [facility] Comment on above: Performed By: #### C MP, TSH #### [facility] [address] [place] [address] Dr. Ana Maria Sellers EGFR-NON AF BELARUSIAN 24 mL/min/1.73m2 Critically low >=60 [facility] Comment on above: Performed By: #### C MP, TSH #### [facility] [address] [place] [address] Dr. Ana Maria Sellers Globulin (S) [Mass/Vol] 3.3 g/dL Normal [facility] Comment on above: Performed By: #### C MP, TSH #### [facility] [address] [address] [address] Ana Maria Sellers Glucose [Mass/Vol] 116 mg/dL Critically high 74-106 [facility] Comment on above: Performed By: #### C MP, TSH #### [facility] [address] [address] [address] Ana Maria Sellers Potassium [Moles/Vol] 4.0 mmol/L Normal 3.5-5.1 [facility] Comment on above: Performed By: #### C MP, TSH #### [facility] [address] [place] [address] Dr. Ana Maria Sellers Protein [Mass/Vol] 7.0 g/dL Normal 6.4-8.2 [facility] Comment on above: Performed By: #### C MP, TSH #### [facility] [address] [place] [address] Dr. Ana Maria Sellers Sodium [Moles/Vol] 141 mmol/L Normal 136-145 [facility] Comment on above: Performed By: #### C MP, TSH #### [facility] [address] [address] [address] Ana Maria Sellers Urea nitrogen [Mass/Vol] 32.0 mg/dL Critically high 7.0-18.0 [facility] Comment on above: Performed By: #### C MP, TSH #### [facility] [address] [place] [address] Dr. Ana Maria Sellers Urea nitrogen/Creatinine [Mass ratio] 16.8 mg/mg Normal [facility] Comment on above: Performed By: #### C MP, TSH #### [facility] [address] [address] [address] Ana Maria Sellers TSHon 12-11-2021 TSH 1.281 uIU/mL Normal 0.358-3.740 [facility] Comment on above: Performed By: #### C MP, TSH #### [facility] [address] [place] [address] Dr. Ana Maria Sellers TSH RANGE SEE BELOW Normal [facility] Comment on above: Result Comment: <0.3 4 UIU/ml HYPERTHYROID 0.34-5.60 UIU/ml EUTHYROID >5.60 UIU/ml HYPOTHYROID Performed By: #### C MP, TSH #### [facility] [address] [place] [address] Dr. Ana Maria Sellers UA RANDOM W/MICROSCOPICon BACTERIA NONE SEEN Normal NONE SEEN [facility] Comment on above: Performed By: #### U AMIC #### [facility] [address] [place] [address] Dr. Ana Maria Sellers Bilirubin Ql (U) Negative Normal NEGATIVE [facility] Comment on above: Performed By: #### U AMIC #### [facility] [address] [place] [address] Dr. Ana Maria Sellers CAST NONE SEEN Normal NONE SEEN [facility] Comment on above: Performed By: #### U AMIC #### [facility] [address] [place] [address] Dr. Ana Maria Sellers Clarity (U) CLEAR Normal CLEAR [facility] Comment on above: Performed By: #### U AMIC #### [facility] [address] [place] [address] Dr. Ana Maria Sellers Color (U) LT. YELLOW Normal YELLOW [facility] Comment on above: Performed By: #### U AMIC #### [facility] [address] [place] [address] Dr. Ana Maria Sellers Crystals LM Nom (Urine sed) NONE SEEN Normal NONE SEEN [facility] Comment on above: Performed By: #### U AMIC #### [facility] [address] [place] [address] Dr. Ana Maria Sellers Epithelial cells LM Ql (Urine sed) RARE Normal NONE SEEN /RARE [facility] Comment on above: Performed By: #### U AMIC #### [facility] [address] [place] [address] Dr. An aMaria Sellers Glucose Ql (U) Negative Normal NEGATIVE [facility] Comment on above: Performed By: #### U AMIC #### [facility] [address] [address] [address] Ana Maria Sellers Hemoglobin Ql (U) Negative Normal NEGATIVE [facility] Comment on above: Performed By: #### U AMIC #### [facility] [address] [place] [address] Dr. Ana Maria Sellers Ketones Ql (U) Negative Normal NEGATIVE [facility] Comment on above: Performed By: #### U AMIC #### [facility] [address] [address] [address] Ana Maria Sellers LEUKOCYTES Negative Normal NEGATIVE [facility] Comment on above: Performed By: #### U AMIC #### [facility] [address] [place] [address] Dr. Ana Maria Sellers MUCOUS NONE SEEN Normal NONE SEEN [facility] Comment on above: Performed By: #### U AMIC #### [facility] [address] [address] [address] Ana Maria Sellers Nitrite Ql (U) Negative Normal NEGATIVE [facility] Comment on above: Performed By: #### U AMIC #### [facility] [address] [place] [address] Dr. Ana Maria Sellers pH (U) 5.5 [pH] Normal 5-9 [facility] Comment on above: Performed By: #### U AMIC #### [facility] [address] [place] [address] Dr. Ana Maria Sellers RBC 0-2 Normal 0-2 [facility] Comment on above: Performed By: #### U AMIC #### [facility] [address] [place] [address] Dr. Ana Maria Sellers SPEC GRAVITY 1.010 Normal 1.005-<=1.0 25 [facility] Comment on above: Performed By: #### U AMIC #### [facility] [address] [place] [address] Dr. Ana Maria Sellers UA PROTEIN Negative Normal NEGATIVE/ TRACE [facility] Comment on above: Performed By: #### U AMIC #### [facility] [address] [place] [address] Dr. Ana Maria Sellers Urobilinogen Qn (U) 0.2 {Chavez'U}/dL Normal 0.2 - 1. 0 [facility] Comment on above: Performed By: #### U AMIC #### [facility] [address] [place] [address] Dr. Ana Maria Sellers WBC 0-2 Abnormal NONE SEEN [facility] Comment on above: Performed By: #### U AMIC #### [facility] [address] [place] [address] Dr. Ana Maria Sellers CBC AUTO DIFFon 09-16-2021 BASO # 0.0 103/ul Normal 0.0-0.1 [facility] Comment on above: Performed By: #### F T4 #### [facility] [address] [place] [address] Dr. Ana Maria Sellers Basophils/100 WBC (Bld) 0.6 % Normal 0.2-2.0 [facility] Comment on above: Performed By: #### F T4 #### [facility] [address] [place] [address] Dr. Ana Maria Sellers EO # 0.2 103/ul Normal 0.0-0.7 [facility] Comment on above: Performed By: #### F T4 #### [facility] [address] [place] [address] Dr. Ana Maria Sellers Eosinophils/100 WBC (Bld) 4.6 % Normal 0.9-7.0 [facility] Comment on above: Performed By: #### F T4 #### [facility] [address] [place] [address] Dr. Ana Maria Sellers Erythrocyte distribution width (RBC) [Ratio] 12.8 % Normal 11.0-15.0 [facility] Comment on above: Performed By: #### F T4 #### [facility] [address] [place] [address] Dr. Ana Maria Sellers Hematocrit (Bld) [Volume fraction] 38.5 % Normal 36.0-48.0 [facility] Comment on above: Performed By: #### F T4 #### [facility] [address] [place] [address] Dr. Ana Maria Sellers Hemoglobin (Bld) [Mass/Vol] 12.7 g/dL Normal 12.0-16.0 [facility] Comment on above: Performed By: #### F T4 #### [facility] [address] [place] [address] Dr. Ana Maria Sellers IG # 0.02 10e3/ul Normal 0.00-0.03 [facility] Comment on above: Performed By: #### F T4 #### [facility] [address] [place] [address] Dr. Ana Maria Sellers IG % 0.4 % Normal 0.0-0.5 [facility] Comment on above: Performed By: #### F T4 #### [facility] [address] [place] [address] Dr. Ana Maria Sellers LYMPH # 1.8 103/ul Normal 1.2-3.8 [facility] Comment on above: Performed By: #### F T4 #### [facility] [address] [place] [address] Dr. Ana Maria Sellers Lymphocytes/100 WBC (Bld) 35.0 % Normal 20.5-60.0 [facility] Comment on above: Performed By: #### F T4 #### [facility] [address] [place] [address] Dr. Ana Maria Sellers MANUAL DIFF REQ NO Normal [facility] Comment on above: Performed By: #### F T4 #### [facility] [address] [place] [address] Dr. Ana Maria Sellers MCH (RBC) [Entitic mass] 29.7 pg Normal 26.7-34.0 [facility] Comment on above: Performed By: #### F T4 #### [facility] [address] [place] [address] Dr. Ana Maria Sellers MCHC (RBC) [Mass/Vol] 33.0 g/dL Normal 29.9-35.2 [facility] Comment on above: Performed By: #### F T4 #### [facility] [address] [address] [address] Ana Maria Sellers MCV (RBC) [Entitic vol] 90.2 fL Normal 81.0-99.0 [facility] Comment on above: Performed By: #### F T4 #### [facility] [address] [place] [address] Dr. Ana Maria Sellers MONO # 0.4 103/ul Normal 0.3-0.8 [facility] Comment on above: Performed By: #### F T4 #### [facility] [address] [place] [address] Dr. Ana Maria Sellers Monocytes/100 WBC (Bld) 8.0 % Normal 1.7-12.0 [facility] Comment on above: Performed By: #### F T4 #### [facility] [address] [place] [address] Dr. Ana Maria Sellers NEUT # 2.7 103/ul Normal 1.4-6.5 [facility] Comment on above: Performed By: #### F T4 #### [facility] [address] [place] [address] Dr. Ana Maria Sellers Neutrophils/100 WBC (Bld) 51.4 % Normal 43.0-75.0 [facility] Comment on above: Performed By: #### F T4 #### [facility] [address] [place] [address] Dr. Ana Maria Sellers Platelet mean volume (Bld) [Entitic vol] 10.6 fL Normal 9.5-13.5 [facility] Comment on above: Performed By: #### F T4 #### [facility] [address] [place] [address] Dr. Ana Maria Sellers PLT 216 103/ul Normal 150-450 [facility] Comment on above: Performed By: #### F T4 #### [facility] [address] [place] [address] Dr. Ana Maria Sellers RBC 4.27 106/ul Normal 4.20-5.40 [facility] Comment on above: Performed By: #### F T4 #### [facility] [address] [place] [address] Dr. Ana Maria Sellers WBC 5.2 103/ul Normal 4.0-11.0 [facility] Comment on above: Performed By: #### F T4 #### [facility] [address] [address] [address] Ana Maria Sellers LIPID PROFILEon 09-16-2021 CHOL-HDL RATIO NORM SEE BELOW Normal [facility] Comment on above: Result Comment: 3.3 - 4.4 LOW RISK 4.4 - 7.1 AVERAGE RISK 7.1 - 11.0 MODERATE RISK >11.0 HIGH RISK Performed By: #### L IPID, CMP #### [facility] [address] [address] [address] Ana Maria Sellers Cholesterol [Mass/Vol] 267 mg/dL Critically high <=200 [facility] Comment on above: Performed By: #### L IPID, CMP #### [facility] [address] [address] [address] Ana Maria Sellers Cholesterol in HDL [Mass/Vol] 46 mg/dL Normal [facility] Comment on above: Performed By: #### L IPID, CMP #### [facility] [address] [address] [address] Ana Maria Sellers Cholesterol in LDL [Mass/Vol] 192.0 mg/dL Normal [facility] Comment on above: Performed By: #### L IPID, CMP #### [facility] [address] [address] [address] Ana Maria Sellers Cholesterol.total/Yaneli sterol in HDL [Mass ratio] 5.8 {ratio} Normal [facility] Comment on above: Performed By: #### L IPID, CMP #### [facility] [address] [address] [address] Ana Maria Sellers HDL NORMAL > or = 60 mg/dl - LO W CARDIOVASCULAR RISK <40 mg/dl - HIGH CARDIOVASCULAR RISK Normal [facility] Comment on above: Performed By: #### L IPID, CMP #### [facility] [address] [address] [address] Ana Maria Sellers LDL CALC NORMAL SEE BELOW Normal [facility] Comment on above: Result Comment: <100 mg/dl OPTIMAL 100 - 129 mg/dl NEAR OR ABOVE OPTIMAL 130 - 159 mg/dl BORDERLINE HIGH 160 - 189 mg/dl HIGH >190 mg/dl VERY HIGH Performed By: #### L IPID, CMP #### [facility] [address] [place] [address] Dr. Ana Maria Sellers Triglyceride [Mass/Vol] 145 mg/dL Normal <=150 [facility] Comment on above: Performed By: #### L IPID, CMP #### [facility] [address] [place] [address] Dr. Ana Maria Sellers VLDL CALC 29.0 mg/dL Normal [facility] Comment on above: Performed By: #### L IPID, CMP #### [facility] [address] [place] [address] Dr. Ana Maria Sellers PROF 14(COMP METB)on 022 Albumin [Mass/Vol] 3.7 g/dL Normal 3.5-5.0 [facility] Comment on above: Performed By: #### L IPID, CMP #### [facility] [address] [place] [address] Dr. Ana Maria Sellers Albumin/Globulin [Mass ratio] 1.1 {ratio} Normal [facility] Comment on above: Performed By: #### L IPID, CMP #### [facility] [address] [place] [address] Dr. Ana Maria Sellers ALP [Catalytic activity/Vol] 95 U/L Normal 38-126 [facility] Comment on above: Performed By: #### L IPID, CMP #### [facility] [address] [place] [address] Dr. Ana Maria Sellers ALT [Catalytic activity/Vol] 14 U/L Normal 9-52 [facility] Comment on above: Performed By: #### L IPID, CMP #### [facility] [address] [place] [address] Dr. Ana Maria Sellers Anion gap [Moles/Vol] 10.8 mmol/L Normal [facility] Comment on above: Performed By: #### L IPID, CMP #### [facility] [address] [address] [address] Ana Maria Sellers AST [Catalytic activity/Vol] 15 U/L Normal 14-36 [facility] Comment on above: Performed By: #### L IPID, CMP #### [facility] [address] [place] [address] Dr. Ana Maria Sellers Bilirubin [Mass/Vol] 0.6 mg/dL Normal 0.2-1.3 [facility] Comment on above: Performed By: #### L IPID, CMP #### [facility] [address] [place] [address] Dr. Ana Maria Sellers Calcium [Mass/Vol] 9.2 mg/dL Normal 8.4-10.2 [facility] Comment on above: Performed By: #### L IPID, CMP #### [facility] [address] [place] [address] Dr. Ana Maria Sellers Chloride [Moles/Vol] 103 mmol/L Normal 98-107 [facility] Comment on above: Performed By: #### L IPID, CMP #### [facility] [address] [place] [address] Dr. Ana Maria Sellers CO2 [Moles/Vol] 29.2 mmol/L Normal 22.0-30.0 [facility] Comment on above: Performed By: #### L IPID, CMP #### [facility] [address] [place] [address] Dr. Ana Maria Sellers Creatinine [Mass/Vol] 1.71 mg/dL Critically high 0.52-1.04 [facility] Comment on above: Performed By: #### L IPID, CMP #### [facility] [address] [place] [address] Dr. Ana Maria Sellers EGFR-AF BELARUSIAN 35 mL/min/1.73m2 Critically low >=60 [facility] Comment on above: Performed By: #### L IPID, CMP #### [facility] [address] [place] [address] Dr. Ana Maria Sellers EGFR-NON AF BELARUSIAN 29 mL/min/1.73m2 Critically low >=60 [facility] Comment on above: Performed By: #### L IPID, CMP #### [facility] [address] [address] [address] Ana Maria Sellers Globulin (S) [Mass/Vol] 3.5 g/dL Normal [facility] Comment on above: Performed By: #### L IPID, CMP #### [facility] [address] [address] [address] Ana Maria Sellers Glucose [Mass/Vol] 100 mg/dL Normal 74-106 [facility] Comment on above: Performed By: #### L IPID, CMP #### [facility] [address] [address] [address] Ana Maria Sellers Potassium [Moles/Vol] 4.0 mmol/L Normal 3.4-5.0 [facility] Comment on above: Performed By: #### L IPID, CMP #### [facility] [address] [place] [address] Dr. Ana Maria Sellers Protein [Mass/Vol] 7.2 g/dL Normal 6.1-8.2 [facility] Comment on above: Performed By: #### L IPID, CMP #### [facility] [address] [address] [address] Ana Maria Sellers Sodium [Moles/Vol] 139 mmol/L Normal 137-145 [facility] Comment on above: Performed By: #### L IPID, CMP #### [facility] [address] [address] [address] Ana Maria Sellers Urea nitrogen [Mass/Vol] 37.0 mg/dL Critically high 7.0-17.0 [facility] Comment on above: Performed By: #### L IPID, CMP #### [facility] [address] [address] [address] Ana Maria Sellers Urea nitrogen/Creatinine [Mass ratio] 21.6 mg/mg Normal [facility] Comment on above: Performed By: #### L IPID, CMP #### [facility] [address] [place] [address] Dr. Ana Maria Sellers Comp Metabolic Pr/rfx MGon 0 3-26-2019 (cont.) Normal [facility] Comment on above: Result Comment: Aver age GFR for 70 or more years old: 75 mL/min/1.73sq m Chronic Kidney Disease: <60 mL/min/1.73sq m Kidney failure: <15 mL/min/1.73sq m eGFR calculated using average adult body mass. Additional eGFR calculator available at: http://www.[employer]/multiple_crcl_2012.htm Performed By: #### C MPX #### [facility] [address] [place], [place] [id number] [employer]: Rick Busby MD Albumin mass conc 3.7 g/dL Normal 3.5-5.2 [facility] Comment on above: Performed By: #### C MPX #### [facility] [address] [place], [place] [id number] [employer]: Rick Busby MD Albumin/Globulin mass ratio 1.5 {ratio} Normal 1.0-2.5 [facility] Comment on above: Performed By: #### C MPX #### [facility] [address] [place], [place] [id number] [employer]: Rick Busby MD Alkaline Phos 65 U/L Normal 35-104 [facility] Comment on above: Performed By: #### C MPX #### [facility] [address] [place] [address] [employer]: Rick Busby MD ALT enzyme act/vol 11 U/L Normal 5-33 [facility] Comment on above: Performed By: #### C MPX #### [facility] [address] [place], [place] [id number] [employer]: Rick Busby MD Anion gap molar conc 12 mmol/L Normal 9-17 [facility] Comment on above: Performed By: #### C MPX #### [facility] [address] [place], [place] [id number] [employer]: Rick Busby MD AST enzyme act/vol 15 U/L Normal <32 [facility] Comment on above: Performed By: #### C MPX #### [facility] [address] [place] [address] [employer]: Rick Busby MD Bilirubin Ql (U) 0.39 mg/dL Normal 0.3-1.2 [facility] Comment on above: Performed By: #### C MPX #### [facility] [address] [place], [place] [id number] [employer]: Rick Busby MD BUN/CRE Ratio 19 Normal 9-20 [facility] Comment on above: Performed By: #### C MPX #### [facility] [address] [place], [place] [id number] [employer]: Rick Busby MD Calcium mass conc 9.3 mg/dL Normal 8.6-10.4 [facility] Comment on above: Performed By: #### C MPX #### [facility] [address] [place], [place] [id number] [employer]: Rick Busby MD Chloride molar conc 104 mmol/L Normal 98-107 [facility] Comment on above: Performed By: #### C MPX #### [facility] [address] [place], [place] [id number] [employer]: Rick Busby MD CO2 molar conc 28 mmol/L Normal 20-31 [facility] Comment on above: Performed By: #### C MPX #### [facility] [address] [place], [place] [id number] [employer]: Rick Busby MD Creatinine mass conc 1.28 mg/dL High 0.50-0.90 [facility] Comment on above: Performed By: #### C MPX #### [facility] [address] [place] [address] [employer]: Rick Busby MD GFR, Amer 49 mL/min Low >60 [facility] Comment on above: Performed By: #### C MPX #### [facility] [address] [place] [address] [employer]: Rick Busby MD GFR,non Amer 40 mL/min Low >60 [facility] Comment on above: Performed By: #### C MPX #### [facility] [address] [place] [address] [employer]: Rick Busby MD Glucose mass conc 111 mg/dL High 70-99 [facility] Comment on above: Performed By: #### C MPX #### [facility] [address] [place] [address] [employer]: Rick Busby MD Potassium molar conc 4.3 mmol/L Normal 3.7-5.3 [facility] Comment on above: Performed By: #### C MPX #### [facility] [address] [place] [address] [employer]: Rick Busby MD Protein mass conc 6.2 g/dL Low 6.4-8.3 [facility] Comment on above: Performed By: #### C MPX #### [facility] [address] [place] [address] [employer]: Rick Busby MD Sodium molar conc 144 mmol/L Normal 135-144 [facility] Comment on above: Performed By: #### C MPX #### [facility] [address] [place] [address] [employer]: Rick Busby MD Staging: Normal [facility] Comment on above: Result Comment: Stag e 1: Some kidney damage normal GFR Stage 2: Mild kidney damage GFR 60-89 Stage 3: Moderate kidney damage GFR 30-59 Stage 4: Severe kidney damage GFR 15-29 Stage 5: Severe kidney damage GFR <15 ESRD - chronic treatment by dialysis or transplant Performed By: #### C MPX #### [facility] [address] [place], [place] [address] [employer]: Rick Busby MD Urea nitrogen mass conc 24 mg/dL High 8-23 [facility] Comment on above: Performed By: #### C MPX #### [facility] [address] [place] [address] [employer]: Rick Busby MD CBC with Diffon 10-04-2018 Abs. Basophil 0.03 k/uL Normal 0.00-0.20 [facility] Comment on above: Performed By: #### C MPX, TROPI, MG, CDP #### [address] [place] [address] [employer]: Rick Busby MD Abs.Imm.Granulocyte <0.03 Normal 0.00-0.30 [facility] Comment on above: Performed By: #### C MPX, TROPI, MG, CDP #### [address] [place] [address] [employer]: Rick Busby MD Abs.Neutrophil (Seg) 3.30 k/uL Normal 1.50-8.10 [facility] Comment on above: Performed By: #### C MPX, TROPI, MG, CDP #### [address] [place] [address] [employer]: Rick Busby MD Basophils/100 WBC (Bld) 1 % Normal 0-2 [facility] Comment on above: Performed By: #### C MPX, TROPI, MG, CDP #### [address] [place] [id number] [employer]: Rick Busby MD Eosinophils #/vol (Bld) 0.17 10*3/uL Normal 0.00-0.44 [facility] Comment on above: Performed By: #### C MPX, TROPI, MG, CDP #### [facility] [address] [place], [place] [id number] [employer]: Rick Busby MD Eosinophils/100 WBC (Bld) 3 % Normal 1-4 [facility] Comment on above: Performed By: #### C MPX, TROPI, MG, CDP #### [facility] [address] [place], [place] [address] [employer]: Rick Busby MD Erythrocyte distribution width Ratio (RBC) 12.8 % Normal 11.8-14.4 [facility] Comment on above: Performed By: #### C MPX, TROPI, MG, CDP #### [address] [place] [address] [employer]: Rick Busby MD Hematocrit Volume Fraction (Bld) 37.8 % Normal 36.3-47.1 [facility] Comment on above: Performed By: #### C MPX, TROPI, MG, CDP #### [address] [place], [place] [address] [employer]: Rick Busby MD Hemoglobin mass conc (Bld) 12.4 g/dL Normal 11.9-15.1 [facility] Comment on above: Performed By: #### C MPX, TROPI, MG, CDP #### [address] [place], [place] [address] [employer]: Rick Busby MD Immature granulocytes #/vol (Bld) 0 % Normal 0 [facility] Comment on above: Performed By: #### C MPX, TROPI, MG, CDP #### [address] [place], [facility] [employer]: Rick Busby MD Lymphocytes #/vol (Bld) 1.67 10*3/uL Normal 1.10-3.70 [facility] Comment on above: Performed By: #### C MPX, TROPI, MG, CDP #### [facility] [address] [place], [facility] [employer]: Rick Busby MD Lymphocytes/100 WBC (Bld) 30 % Normal 24-43 [facility] Comment on above: Performed By: #### C MPX, TROPI, MG, CDP #### [facility] [address] [place], [facility] [employer]: Rick Busby MD MCH Entitic mass (RBC) 30.2 pg Normal 25.2-33.5 [facility] Comment on above: Performed By: #### C MPX, TROPI, MG, CDP #### [facility] [address] [place], [facility] [employer]: Rick Busby MD MCHC mass conc (RBC) 32.8 g/dL Normal 28.4-34.8 [facility] Comment on above: Performed By: #### C MPX, TROPI, MG, CDP #### [facility] [address] [place], [facility] [employer]: Rick Busby MD MCV Entitic volume (RBC) 92.0 fL Normal 82.6-102.9 [facility] Comment on above: Performed By: #### C MPX, TROPI, MG, CDP #### [facility] [address] [place], [place] [address] [employer]: Rick Busby MD Monocytes #/vol (Bld) 0.46 10*3/uL Normal 0.10-1.20 [facility] Comment on above: Performed By: #### C MPX, TROPI, MG, CDP #### [facility] [address] [place] [address] [employer]: Rick Busby MD Monocytes/100 WBC (Bld) 8 % Normal 3-12 [facility] Comment on above: Performed By: #### C MPX, TROPI, MG, CDP #### [facility] [address] [place], [place] [id number] [employer]: Rick Busby MD Neutrophil (Seg) 58 % Normal 36-65 [facility] Comment on above: Performed By: #### C MPX, TROPI, MG, CDP #### [facility] [address] [place], [facility]83 [employer]: Rick Busby MD NRBC Automated 0.0 per 100 WBC Normal 0.0 [facility] Comment on above: Performed By: #### C MPX, TROPI, MG, CDP #### [facility] [address] [place], [facility]83 [employer]: Rick Busby MD Platelet mean volume Entitic volume (Bld) 11.2 fL Normal 8.1-13.5 [facility] Comment on above: Performed By: #### C MPX, TROPI, MG, CDP #### [address] [place], [facility]83 [employer]: Rick Busby MD Platelets #/vol (Bld) 174 10*3/uL Normal 138-453 [facility] Comment on above: Performed By: #### C MPX, TROPI, MG, CDP #### [address] [place], [facility]83 [employer]: Rick Busby MD RBC #/vol (Bld) 4.11 10*6/uL Normal 3.95-5.11 [facility] Comment on above: Performed By: #### C MPX, TROPI, MG, CDP #### [address] [place] [address] [employer]: Rick Busby MD WBC #/vol (Bld) 5.6 10*3/uL Normal 3.5-11.3 [facility] Comment on above: Performed By: #### C MPX, TROPI, MG, CDP #### [facility] [address] [place], [place] [id number] [employer]: Rick Busby MD Auto Diff Performed NOT REPORTED Normal [facility] Comment on above: Performed By: #### C MPX, TROPI, MG, CDP #### [facility] [address] [place] [address] [employer]: Rick Busby MD Platelets #/vol (Bld) NOT REPORTED Normal [facility] Comment on above: Performed By: #### C MPX, TROPI, MG, CDP #### [facility] [address] [place] [address] [employer]: Rick Busby MD RBC morphology finding Nom (Bld) NOT REPORTED Normal [facility] Comment on above: Performed By: #### C MPX, TROPI, MG, CDP #### [facility] [address] [place] [address] [employer]: Rick Busby MD WBC Morphology NOT REPORTED Normal [facility] Comment on above: Performed By: #### C MPX, TROPI, MG, CDP #### [address] [place], [place] [id number] [employer]: Rick Busby MD CT HEAD WO CONTRASTon [...] Noe Regalado MD 10/04/18 Final result Normal [facility] Comp Metabolic Pr/rfx MGon 0 10-04-2018 Potassium molar conc 3.3 mmol/L Low 3.7-5.3 [facility] Comment on above: Performed By: #### C MPX, TROPI, MG, CDP #### [facility] [address] [place] [address] [employer]: Rick Busby MD (cont.) Normal [facility] Comment on above: Result Comment: Aver age GFR for 70 or more years old: 75 mL/min/1.73sq m Chronic Kidney Disease: <60 mL/min/1.73sq m Kidney failure: <15 mL/min/1.73sq m eGFR calculated using average adult body mass. Additional eGFR calculator available at: http://www.[employer]multiple_crcl_2012.htm Performed By: #### C MPX, TROPI, MG, CDP #### [facility] [address] [place] [address] [employer]: Rick Busby MD Albumin mass conc 4.0 g/dL Normal 3.5-5.2 [facility] Comment on above: Performed By: #### C MPX, TROPI, MG, CDP #### [facility] [address] [place] [address] [employer]: Rick Busby MD Albumin/Globulin mass ratio 1.5 {ratio} Normal 1.0-2.5 [facility] Comment on above: Performed By: #### C MPX, TROPI, MG, CDP #### [facility] [address] [place], [place] [id number] [employer]: Rick Busby MD Alkaline Phos 66 U/L Normal 35-104 [facility] Comment on above: Performed By: #### C MPX, TROPI, MG, CDP #### [facility] [address] [place], [place] [id number] [employer]: Rick Busby MD ALT enzyme act/vol 14 U/L Normal 5-33 [facility] Comment on above: Performed By: #### C MPX, TROPI, MG, CDP #### [facility] [address] [place] [address] [employer]: Rick Busby MD Anion gap molar conc 16 mmol/L Normal 9-17 [facility] Comment on above: Performed By: #### C MPX, TROPI, MG, CDP #### [facility] [address] [place], [place] [id number] [employer]: Rick Busby MD AST enzyme act/vol 19 U/L Normal <32 [facility] Comment on above: Performed By: #### C MPX, TROPI, MG, CDP #### [facility] [address] [place], [place] [address] [employer]: Rick Busby MD Bilirubin Ql (U) 0.36 mg/dL Normal 0.3-1.2 [facility] Comment on above: Performed By: #### C MPX, TROPI, MG, CDP #### [facility] [address] [place] [address] [employer]: Rick Busby MD BUN/CRE Ratio 17 Normal 9-20 [facility] Comment on above: Performed By: #### C MPX, TROPI, MG, CDP #### [facility] [address] [place] [address] [employer]: Rick Busby MD Calcium mass conc 9.4 mg/dL Normal 8.6-10.4 [facility] Comment on above: Performed By: #### C MPX, TROPI, MG, CDP #### [facility] [address] [place], [place] [id number] [employer]: Rick Busby MD Chloride molar conc 101 mmol/L Normal 98-107 [facility] Comment on above: Performed By: #### C MPX, TROPI, MG, CDP #### [facility] [address] [place], [place] [id number] [employer]: Rick Busby MD CO2 molar conc 23 mmol/L Normal 20-31 [facility] Comment on above: Performed By: #### C MPX, TROPI, MG, CDP #### [facility] [address] [place], [place] [address] [employer]: Rick Busby MD Creatinine mass conc 1.50 mg/dL High 0.50-0.90 [facility] Comment on above: Performed By: #### C MPX, TROPI, MG, CDP #### [facility] [address] [place], [place] [id number] [employer]: Rick Busby MD GFR, Amer 41 mL/min Low >60 [facility] Comment on above: Performed By: #### C MPX, TROPI, MG, CDP #### [facility] [address] [place], [place] [id number] [employer]: Rick Busby MD GFR,non Amer 34 mL/min Low >60 [facility] Comment on above: Performed By: #### C MPX, TROPI, MG, CDP #### [facility] [address] [place] [address] [employer]: Rick Busby MD Glucose mass conc 120 mg/dL High 70-99 [facility] Comment on above: Performed By: #### C MPX, TROPI, MG, CDP #### [facility] [address] [place] [address] [employer]: Rick Busby MD Protein mass conc 6.7 g/dL Normal 6.4-8.3 [facility] Comment on above: Performed By: #### C MPX, TROPI, MG, CDP #### [facility] [address] [place] [address] [employer]: Rick Busby MD Sodium molar conc 140 mmol/L Normal 135-144 [facility] Comment on above: Performed By: #### C MPX, TROPI, MG, CDP #### [address] [place] [address] [employer]: Rick Busby MD Staging: Normal [facility] Comment on above: Result Comment: Stag e 1: Some kidney damage normal GFR Stage 2: Mild kidney damage GFR 60-89 Stage 3: Moderate kidney damage GFR 30-59 Stage 4: Severe kidney damage GFR 15-29 Stage 5: Severe kidney damage GFR <15 ESRD - chronic treatment by dialysis or transplant Performed By: #### C MPX, TROPI, MG, CDP #### [address] [place] [address] [employer]: Rick Busby MD Urea nitrogen mass conc 25 mg/dL High 8-23 [facility] Comment on above: Performed By: #### C MPX, TROPI, MG, CDP #### [facility] [address] [place] [address] [place] [address] [employer]: Rick Busby MD Magnesiumon 10-04-2018 Magnesium mass conc 2.0 mg/dL Normal 1.6-2.6 [facility] Comment on above: Performed By: #### C MPX, TROPI, MG, CDP #### [facility] [address] [place] [address] [employer]: Rick Busby MD Troponinon 10-04-2018 Troponin I.cardiac mass conc ng/mL Normal <0.03 [facility] Comment on above: Result Comment: Trop onin T results cannot be compared to Troponin-I results. Performed By: #### C MPX, TROPI, MG, CDP #### [facility] [address] [place] [address] [employer]: Rick Busby MD Troponin I.cardiac mass conc Normal [facility] Comment on above: Result Comment: Refe rence [...] #### C MPX, TROPI, MG, CDP #### [facility] [address] [place] [address] [employer]: Rick Busby MD Troponin I.cardiac mass conc NOT REPORTED Normal 0-14 [facility] Comment on above: Performed By: #### C MPX, TROPI, MG, CDP #### [facility] [address] [place] [address] [employer]: Rick Busby MD UA w/Reflex Cultureon 2018 Acetoacetic Acid,Ur Negative Normal NEG [facility] Comment on above: Performed By: #### U AX, UMICAO #### [facility] [address] [place], [place] [id number] [employer]: Rick Busby MD Bilirubin.direct mass conc Negative Normal NEG [facility] Comment on above: Performed By: #### U AX, UMICAO #### [facility] [address] [place], [place] [id number] [employer]: Rick Busby MD Color Nom (U) YELLOW Normal YEL [facility] Comment on above: Performed By: #### U AX, UMICAO #### [facility] [address] [place] [address] [employer]: Rick Busby MD Glucose mass conc Negative Normal NEG [facility] Comment on above: Performed By: #### U AX, UMICAO #### [facility] [address] [place] [address] [employer]: Rick Busby MD Hemoglobin mass conc (Bld) Negative Normal NEG [facility] Comment on above: Performed By: #### U AX, UMICAO #### [facility] [address] [place] [address] [employer]: Rick Busby MD Leuckocyte Esterase Negative Normal [facility] Comment on above: Performed By: #### U AX, UMICAO #### [facility] [address] [place] [address] [employer]: Rick Busby MD Nitrite,Ur Negative Normal [facility] Comment on above: Performed By: #### U AX, UMICAO #### [facility] [address] [place] [address] [employer]: Rick Busby MD PH,Ur 6.5 Normal 5.0-9.0 [facility] Comment on above: Performed By: #### U AX, UMICAO #### [facility] [address] [place] [address] [employer]: Rick Busby MD Protein mass conc Negative Normal [facility] Comment on above: Performed By: #### U AX, UMICAO #### [facility] [address] [place], [place] [id number] [employer]: Rick Busby MD Spec. [place],Ur 1.010 Normal 1.010-1.020 [facility] Comment on above: Performed By: #### U AX, UMICAO #### [facility] [address] [place], [place] [address] [employer]: Rick Busby MD Turbidity CLEAR Normal CLEAR [facility] Comment on above: Performed By: #### U AX, UMICAO #### [facility] [address] [place], [place] [id number] [employer]: Rick Busby MD Urobilinogen,Ur Normal Normal NORM [facility] Comment on above: Performed By: #### U AX, UMICAO #### [facility] [address] [place], [place] [id number] [employer]: Rick Busby MD Comment NOT REPORTED Normal [facility] Comment on above: Performed By: #### U AX, UMICAO #### [facility] [address] [place], [place] [address] [employer]: Rick Busby MD Urinalysis,Microon 9 ----- Normal [facility] Comment on above: Performed By: #### U AX, UMICAO #### [facility] [address] [place] [address] [employer]: Rick Busby MD Epithelial cells LM.HPF #/area (Urine sed) 0 TO 2 Normal 025 [facility] Comment on above: Performed By: #### U AX, UMICAO #### [facility] [address] [place], [place] [id number] [employer]: Rick Busby MD RBC #/vol (U) None Normal 0-2 [facility] Comment on above: Performed By: #### U AX, UMICAO #### [facility] [address] [place], [place] [address] [employer]: Rick Busby MD WBC #/vol (U) None Normal 0-5 [facility] Comment on above: Performed By: #### U AX, UMICAO #### [facility] [address] [place] [address] [employer]: Rick Busby MD Amorphous sediment LM Ql (Urine sed) NOT REPORTED Normal [facility] Comment on above: Performed By: #### U AX, UMICAO #### [facility] [address] [place] [address] [employer]: Rick Busby MD Bacteria LM.HPF #/area (Urine sed) NOT REPORTED Normal [facility] Comment on above: Performed By: #### U AX, UMICAO #### [facility] [address] [place] [address] [employer]: Rick Busby MD Casts LM.LPF #/area (Urine sed) NOT REPORTED Normal [facility] Comment on above: Performed By: #### U AX, UMICAO #### [facility] [address] [place] [address] [employer]: Rick Busby MD Crystals LM Nom (Urine sed) NOT REPORTED Normal [facility] Comment on above: Performed By: #### U AX, UMICAO #### [facility] [address] [place] [address] [employer]: Rick Busby MD Epithelial, Renal NOT REPORTED Normal 0 [facility] Comment on above: Performed By: #### U AX, UMICAO #### [facility] [address] [place] [address] [employer]: Rick Busby MD Mucus Strands NOT REPORTED Normal [facility] Comment on above: Performed By: #### U AX, UMICAO #### [facility] [address] [place] [address] [employer]: Rick Busby MD Other Observations NOT REPORTED Normal [facility] Comment on above: Performed By: #### U AX, UMICAO #### [facility] [address] [place] [address] [employer]: Rick Busby MD Trichomonas NOT REPORTED Normal NONE [facility] Comment on above: Performed By: #### U AX, UMICAO #### [facility] [address] [place] [address] [employer]: Rick Busby MD Yeast LM Ql (Urine sed) NOT REPORTED Normal NONE [facility] Comment on above: Performed By: #### U AX, UMICAO #### [facility] [address] [place] [address] [employer]: Rick Busby MD Vital Signs Date Time Vital Sign Value Performing Clinician Faci lity 02-07-2025 10:35-0400 Body height 152.4 cm David Pike MD Work Phone: [facility] 02-07-2025 10:35-0400 Body mass index (BMI) [Ratio] 29.2 kg/m2 David Pike MD Work Phone: [facility] 02-07-2025 10:35-0400 Body weight 68.03 kg David Pike MD Work Phone: [facility] 02-07-2025 10:35-0400 Diastolic blood pressure 90 mm[Hg] David Pike MD Work Phone: [facility] 02-07-2025 10:35-0400 Heart rate 84 /min David Pike MD Work Phone: [facility] 02-07-2025 10:35-0400 Respiratory rate 16 /min David Pike MD Work Phone: [facility] 02-07-2025 10:35-0400 SaO2% (BldA) [Mass fraction] 95 % Davdi Pike MD Work Phone: [facility] 02-07-2025 10:35-0400 Systolic blood pressure 140 mm[Hg] David Pike MD Work Phone: [facility] 12-22-2024 15:24-0400 Body height 149.86 cm David Pike MD Work Phone: [facility] 12-22-2024 15:24-0400 Body mass index (BMI) [Ratio] 30.9 kg/m2 David Pike MD Work Phone: [facility] 12-22-2024 15:24-0400 Body weight 69.39 kg David Pike MD Work Phone: [facility] 12-22-2024 15:24-0400 Diastolic blood pressure 70 mm[Hg] David Pike MD Work Phone: [facility] 12-22-2024 15:24-0400 Heart rate 78 /min David Pike MD Work Phone: [facility] 12-22-2024 15:24-0400 SaO2% (BldA) [Mass fraction] 95 % David Pike MD Work Phone: [facility] 12-22-2024 15:24-0400 Systolic blood pressure 130 mm[Hg] David Pike MD Work Phone: [facility] 08-18-2024 10:14-0500 Body height 149.86 cm David Pike MD Work Phone: [facility] 08-18-2024 10:14-0500 Body mass index (BMI) [Ratio] 30.3 kg/m2 David Pike MD Work Phone: [facility] 08-18-2024 10:14-0500 Body temperature 99 [degF] David Pike MD Work Phone: [facility] 08-18-2024 10:14-0500 Body weight 68.15 kg David Pike MD Work Phone: [facility] 08-18-2024 10:14-0500 Diastolic blood pressure 86 mm[Hg] David Pike MD Work Phone: [facility] 08-18-2024 10:14-0500 Heart rate 90 /min David Pike MD Work Phone: [facility] 08-18-2024 10:14-0500 Systolic blood pressure 145 mm[Hg] David Pike MD Work Phone: [facility] 08-17-2024 09:14-0500 Body mass index (BMI) [Ratio] 29.12 kg/m2 Christopher Karen DO Work Phone: [facility] 08-17-2024 09:14-0500 Body weight 68.77 kg Christopher Karen DO Work Phone: [facility] 08-17-2024 09:14-0500 Diastolic blood pressure 92 mm[Hg] Christopher Karen DO Work Phone: [facility] 08-17-2024 09:14-0500 Heart rate 94 /min Christopher Karen DO Work Phone: [facility] 08-17-2024 09:14-0500 SaO2% (BldA) [Mass fraction] 95 % Christopher Karen DO Work Phone: [facility] 08-17-2024 09:14-0500 Systolic blood pressure 182 mm[Hg] Christopher Karen DO Work Phone: [facility] 06-17-2024 13:05-0500 Body height 149.86 cm David Pike MD Work Phone: [facility] 06-17-2024 13:05-0500 Body mass index (BMI) [Ratio] 30.1 kg/m2 David Pike MD Work Phone: [facility] 06-17-2024 13:05-0500 Body weight 67.58 kg David Pike MD Work Phone: [facility] 06-17-2024 13:05-0500 Diastolic blood pressure 82 mm[Hg] David Pike MD Work Phone: [facility] 06-17-2024 13:05-0500 Heart rate 70 /min David Pike MD Work Phone: [facility] 06-17-2024 13:05-0500 Systolic blood pressure 154 mm[Hg] David Pike MD Work Phone: [facility] 03-29-2024 09:07-0400 Body height 149.86 cm MD David Pike Work Phone: [facility] 03-29-2024 09:07-0400 Body mass index (BMI) [Ratio] 30.1 kg/m2 MD David Pike Work Phone: [facility] 03-29-2024 09:07-0400 Body temperature 97.8 [degF] MD David Pike Work Phone: [facility] 03-29-2024 09:07-0400 Body weight 67.58 kg MD David iPke Work Phone: [facility] 03-29-2024 09:07-0400 Diastolic blood pressure 91 mm[Hg] MD David Pike Work Phone: [facility] 03-29-2024 09:07-0400 Heart rate 58 /min MD David Pike Work Phone: [facility] 03-29-2024 09:07-0400 Respiratory rate 16 /min MD David Pike Work Phone: [facility] 03-29-2024 09:07-0400 SaO2% (BldA) [Mass fraction] 97 % MD David Pike Work Phone: [facility] 03-29-2024 09:07-0400 Systolic blood pressure 158 mm[Hg] MD David Pike Work Phone: [facility] 03-16-2024 10:03-0400 Body height 149.86 cm [facility] 03-16-2024 10:03-0400 Body mass index (BMI) [Ratio] 29.9 kg/m2 [facility] 03-16-2024 10:03-0400 Body weight 67.13 kg [facility] 03-16-2024 10:03-0400 Diastolic blood pressure 80 mm[Hg] [facility] 03-16-2024 10:03-0400 Heart rate 76 /min [facility] 03-16-2024 10:03-0400 Systolic blood pressure 153 mm[Hg] [facility] 09-17-2023 09:18-0500 Body height 149.86 cm MD David Pike Work Phone: [facility] 09-17-2023 09:18-0500 Body mass index (BMI) [Ratio] 30.1 kg/m2 MD David Pike Work Phone: [facility] 09-17-2023 09:18-0500 Body temperature 97.1 [degF] MD David Pike Work Phone: [facility] 09-17-2023 09:18-0500 Body weight 67.58 kg MD David Pike Work Phone: [facility] 09-17-2023 09:18-0500 Diastolic blood pressure 95 mm[Hg] MD David Pike Work Phone: [facility] 09-17-2023 09:18-0500 Heart rate 70 /min MD David Pike Work Phone: [facility] 09-17-2023 09:18-0500 Respiratory rate 16 /min MD David Pike Work Phone: [facility] 09-17-2023 09:18-0500 SaO2% (BldA) [Mass fraction] 97 % MD David Pike Work Phone: [facility] 09-17-2023 09:18-0500 Systolic blood pressure 170 mm[Hg] MD David Pike Work Phone: [facility] 09-04-2023 08:59-0500 Body height 149.86 cm [facility] 09-04-2023 08:59-0500 Body mass index (BMI) [Ratio] 30.1 kg/m2 [facility] 09-04-2023 08:59-0500 Body weight 67.58 kg [facility] 09-04-2023 08:59-0500 Diastolic blood pressure 65 mm[Hg] [facility] 09-04-2023 08:59-0500 Heart rate 77 /min [facility] 09-04-2023 08:59-0500 Systolic blood pressure 146 mm[Hg] [facility] 08-21-2023 11:00-0500 Body height 149.86 cm David Pike Other [facility] [employer] Other 08-21-2023 11:00-0500 Body mass index (BMI) [Ratio] 30.13 kg/m2 David Pike Other [employer] Other 08-21-2023 11:00-0500 Body weight 67.68 kg David Pike Other [employer] Other 08-21-2023 11:00-0500 Diastolic blood pressure 81 mm[Hg] David Pike Other [employer] Other 08-21-2023 11:00-0500 Respiratory rate 16 /min David Pike Other [employer] Other 08-21-2023 11:00-0500 Systolic blood pressure 144 mm[Hg] David Pike Other [employer] Other 05-06-2023 09:15-0400 Body height 149.86 cm David Pike Other [employer] Other 05-06-2023 09:15-0400 Body mass index (BMI) [Ratio] 29.69 kg/m2 David Pike Other [employer] Other 05-06-2023 09:15-0400 Body temperature 97.3 [degF] David Pike Other [employer] Other 05-06-2023 09:15-0400 Body weight 66.68 kg David Pike Other [employer] Other 05-06-2023 09:15-0400 Diastolic blood pressure 67 mm[Hg] David Pike Other [employer] Other 05-06-2023 09:15-0400 Systolic blood pressure 146 mm[Hg] David Pike Other [employer] Other 04-17-2023 11:15-0400 Body height 149.86 cm David Pike Other [employer] Other 04-17-2023 11:15-0400 Body mass index (BMI) [Ratio] 29.89 kg/m2 David Pike Other [employer] Other 04-17-2023 11:15-0400 Body weight 67.13 kg David Pike Other [employer] Other 04-17-2023 11:15-0400 Diastolic blood pressure 80 mm[Hg] David Pike Other [employer] Other 04-17-2023 11:15-0400 Systolic blood pressure 158 mm[Hg] David Pike Other [employer] Other 04-09-2023 14:30-0400 Body height 149.86 cm David Pike Other [employer] Other 04-09-2023 14:30-0400 Body mass index (BMI) [Ratio] 30.29 kg/m2 David Pike Other [employer] Other 04-09-2023 14:30-0400 Body weight 68.04 kg David Pike Other [employer] Other 04-09-2023 14:30-0400 Diastolic blood pressure 76 mm[Hg] David Pike Other [employer] Other 04-09-2023 14:30-0400 Systolic blood pressure 135 mm[Hg] David Pike Other [employer] Other 03-18-2023 09:20-0400 Body height 149.86 cm Deepa Emeka Other [employer] Other 03-18-2023 09:20-0400 Body mass index (BMI) [Ratio] 30.29 kg/m2 Deepa Emeka Other [employer] Other 03-18-2023 09:20-0400 Body temperature 97 [degF] Deepa Emeka Other [employer] Other 03-18-2023 09:20-0400 Body weight 68.04 kg Deepa Emeka Other [employer] Other 03-18-2023 09:20-0400 Diastolic blood pressure 78 mm[Hg] Deepa Emeka Other [employer] Other 03-18-2023 09:20-0400 Respiratory rate 18 /min Deepa Emeka Other [employer] Other 03-18-2023 09:20-0400 SaO2% (BldA) [Mass fraction] 96 % Deepa Emeka Other [employer] Other 03-18-2023 09:20-0400 Systolic blood pressure 131 mm[Hg] Deepa Perezr Other [employer] Other 02-04-2023 10:15-0400 Body height 149.86 cm David Pike Other [employer] Other 02-04-2023 10:15-0400 Body mass index (BMI) [Ratio] 30.49 kg/m2 David Pike Other [employer] Other 02-04-2023 10:15-0400 Body weight 68.49 kg David Pike Other [employer] Other 02-04-2023 10:15-0400 Diastolic blood pressure 74 mm[Hg] David Pike Other [employer] Other 02-04-2023 10:15-0400 Systolic blood pressure 159 mm[Hg] David Pike Other [employer] Other 10-16-2022 10:30-0400 Body height 149.86 cm David Pike Other [employer] Other 10-16-2022 10:30-0400 Body mass index (BMI) [Ratio] 30.9 kg/m2 David Pike Other [employer] Other 10-16-2022 10:30-0400 Body weight 69.4 kg David Pike Other [employer] Other 10-16-2022 10:30-0400 Diastolic blood pressure 78 mm[Hg] David Pike Other [employer] Other 10-16-2022 10:30-0400 SaO2% (BldA) [Mass fraction] 99 % David Pike Other [employer] Other 10-16-2022 10:30-0400 Systolic blood pressure 124 mm[Hg] David Pike Other [employer] Other 10-01-2022 12:20-0400 Body height 152.4 cm Deepa Emeka Other [employer] Other 10-01-2022 12:20-0400 Body mass index (BMI) [Ratio] 30.19 kg/m2 Deepa Emeka Other [employer] Other 10-01-2022 12:20-0400 Body weight 70.13 kg Deepa Emeka Other [employer] Other 10-01-2022 12:20-0400 Diastolic blood pressure 88 mm[Hg] Deepa Emeka Other [employer] Other 10-01-2022 12:20-0400 Respiratory rate 18 /min Deepa Emeka Other [employer] Other 10-01-2022 12:20-0400 SaO2% (BldA) [Mass fraction] 96 % Deepa Emeka Other [employer] Other 10-01-2022 12:20-0400 Systolic blood pressure 147 mm[Hg] Deepa Emeka Other [employer] Other 09-23-2022 10:27-0400 Blood Pressure Location [place] [facility] 09-23-2022 10:27-0400 Diastolic blood pressure 74 mm[Hg] [place] [facility] 09-23-2022 10:27-0400 Heart rate 70 /min [place] [facility] 09-23-2022 10:27-0400 Systolic blood pressure 144 mm[Hg] [place] [facility] 09-12-2022 09:30-0500 Body height 152.4 cm David Pike Other [employer] [facility] [employer] Other 09-12-2022 09:30-0500 Body mass index (BMI) [Ratio] 29.96 kg/m2 David Pike Other [employer] Other 09-12-2022 09:30-0500 Body weight 69.58 kg David Pike Other [employer] Other 09-12-2022 09:30-0500 Diastolic blood pressure 72 mm[Hg] David Pike Other [employer] Other 09-12-2022 09:30-0500 SaO2% (BldA) [Mass fraction] 94 % David Pike Other [employer] Other 09-12-2022 09:30-0500 Systolic blood pressure 130 mm[Hg] David Pike Other [employer] Other 09-17-2021 16:40-0500 Body height 152.4 cm Deepa Emeka Other [employer] Other 09-17-2021 16:40-0500 Body mass index (BMI) [Ratio] 30.15 kg/m2 Deepa Emeka Other [employer] Other 09-17-2021 16:40-0500 Body temperature 96.6 [degF] Deepa Emeka Other [employer] Other 09-17-2021 16:40-0500 Body weight 70.04 kg Deepa Emeka Other [employer] Other 09-17-2021 16:40-0500 Diastolic blood pressure 81 mm[Hg] Deepa Emeka Other [employer] Other 09-17-2021 16:40-0500 Respiratory rate 18 /min Deepa Emeka Other [employer] Other 09-17-2021 16:40-0500 SaO2% (BldA) [Mass fraction] 96 % Deepa Emeka Other [employer] Other 09-17-2021 16:40-0500 Systolic blood pressure 129 mm[Hg] Deepa Emeka Other [employer] Other Encounters Encounter Date Encounter Type Care Provider Facility Start: 02-21-2025 ambulatory Max Shah Facility : [facility] Start: 02-09-2025 End: 02-09-2025 Departed Referred David Pike MD -[facility] Work Phone: Start: 02-09-2025 End: 02-09-2025 ambulatory David Pike MD Work Phone: [facility] Work Phone: Start: 02-09-2025 End: 02-09-2025 Patient encounter procedure David Pike MD -[facility] Work Phone: Start: 02-07-2025 End: 02-07-2025 ambulatory David Pike MD Work Phone: [facility] Work Phone: Start: 02-07-2025 End: 02-07-2025 Patient encounter procedure Inessa Haynes CLIENT SUPPORT ANALYST-MARINE RAILWAY OPERATOR-C -[facility] Work Phone: Start: 01-24-2025 End: 01-24-2025 Patient encounter procedure David Pike MD -[facility] Work Phone: Start: 01-24-2025 End: 01-24-2025 ambulatory David Pike MD Work Phone: [facility] Work Phone: Start: 01-24-2025 End: 01-24-2025 Departed Referred David Pike MD -[facility] Work Phone: Start: 12-29-2024 End: 12-29-2024 Patient encounter procedure Rosie Weiner DO -[facility] Work Phone: Start: 12-29-2024 End: 12-29-2024 ambulatory Rosie Jones Facility:[facility] Start: 12-22-2024 End: 12-22-2024 Patient encounter procedure Deepa Hendrickson MD -[facility] Work Phone: Start: 11-28-2024 End: 11-28-2024 Patient encounter procedure Deepa Hendrickson MD -[facility] Work Phone: Start: 11-28-2024 End: 11-28-2024 ambulatory Deepa Hendrickson Facility:[facility] Start: 08-18-2024 End: 08-18-2024 ambulatory David Pike MD Work Phone: [facility] Work Phone: Start: 08-18-2024 End: 08-18-2024 Patient encounter procedure David Pike MD Work Phone: [facility] Work Phone: Start: 08-17-2024 End: 08-17-2024 Bamboo flowsheet Christopher Karen DO Work Phone: [facility] Start: 08-17-2024 End: 08-17-2024 Bamboo flowsheet Christopher Karen DO Work Phone: [facility] Start: 08-17-2024 End: 08-17-2024 Patient encounter procedure David Pike MD Work Phone: [facility] Work Phone: Start: 08-17-2024 End: 08-17-2024 ambulatory David Pike MD Work Phone: [facility] Work Phone: Start: 08-17-2024 End: 08-17-2024 Office outpatient new 45 minutes Christopher Karen DO Work Phone: [facility] Comment on above: Mild late onset Alzh eimer's dementia, unspecified whether behavioral, psychotic, or mood disturbance or anxiety (CMS/HCC) (Primary Dx) Start: 08-17-2024 End: 08-17-2024 ambulatory ROSIE JONES Not Available Start: 06-17-2024 End: 06-17-2024 Patient encounter procedure David Pike MD Work Phone: [facility] Work Phone: Start: 06-14-2024 Non-patient / Non-visit David Pike MD Work Phone: [facility] Work Phone: Start: 03-29-2024 End: 03-29-2024 ambulatory MD David Pike Work Phone: [facility] Work Phone: Start: 03-29-2024 End: 03-29-2024 Patient encounter procedure MD David Pike Work Phone: [facility] Neph[facility] Work Phone: Start: 03-28-2024 End: 03-28-2024 Patient encounter procedure MD David Pike Work Phone: [facility] Work Phone: Start: 03-28-2024 End: 03-28-2024 ambulatory MD David Pike Work Phone: [facility] Work Phone: Start: 03-18-2024 End: 03-18-2024 Patient encounter procedure MD David Pike Work Phone: [facility] Work Phone: Start: 03-18-2024 End: 03-18-2024 ambulatory MD David Pike Work Phone: [facility] Work Phone: Start: 03-16-2024 End: 03-16-2024 ambulatory [facility] Work Phone: Start: 03-16-2024 End: 03-16-[address] [facility] Work Phone: Start: 03-11-2024 End: 03-11-2024 ambulatory [facility] Work Phone: Start: 03-11-2024 End: 03-11-[address] [facility] Work Phone: Start: 10-09-2023 End: 10-09-2023 ambulatory MD David Pike Work Phone: [facility] Work Phone: Start: 10-09-2023 End: 10-09-2023 Patient encounter procedure MD David Pike Work Phone: [facility] Work Phone: Start: 10-05-2023 End: 10-05-2023 ambulatory MD David Pike Work Phone: [facility] Work Phone: Start: 10-05-2023 End: 10-05-2023 Patient encounter procedure MD David Pike Work Phone: [facility] Work Phone: Start: 10-04-2023 End: 10-04-2023 ambulatory SCOTT Sanchez GRAY Not Available Start: 09-17-2023 End: 09-17-2023 Patient encounter procedure MD David Pike Work Phone: [facility] Nephrology Work Phone: Start: 09-07-2023 End: 09-07-2023 Patient encounter procedure MD David Pike Work Phone: [facility] Work Phone: Start: 09-04-2023 End: 09-04-2023 ambulatory [facility] Work Phone: Start: 09-04-2023 End: 09-04-[address] [facility] Work Phone: Start: 08-21-2023 End: 08-21-2023 ambulatory David Pike Other [employer] Other Start: 08-21-2023 Patient encounter procedure David Pike [facility] Start: 06-01-2023 End: 06-01-2023 ambulatory David Pike Other [employer] Other Start: 06-01-2023 Telephone encounter David Pike [facility] Start: 05-11-2023 End: 05-11-2023 ambulatory David Pike Other [employer] Other Start: 05-11-2023 Telephone encounter David Pike [facility] Start: 05-06-2023 End: 05-06-2023 ambulatory David Pike Other [employer] Other Start: 05-06-2023 Office outpatient visit 15 minutes David Pike [facility] Start: 04-17-2023 End: 04-17-2023 ambulatory David Pike Other [employer] Other Start: 04-17-2023 Office outpatient visit 15 minutes David Pike [facility] Start: 04-09-2023 End: 04-09-2023 ambulatory David Pike Other [employer] Other Start: 04-09-2023 Office outpatient visit 15 minutes David Pike [facility] Start: 03-18-2023 End: 03-18-2023 ambulatory Deepa Emeka Other [employer] Other Start: 03-18-2023 Office outpatient visit 25 minutes Deepa Emeka [facility] Start: 03-17-2023 End: 03-17-2023 ambulatory MD David Pike Work Phone: [facility] Work Phone: Start: 03-17-2023 End: 03-17-2023 Patient encounter procedure MD David Pike Work Phone: [facility] Work Phone: Start: 02-23-2023 End: 02-23-2023 ambulatory David Pike Other [employer] Other Start: 02-23-2023 Nursing evaluation o f patient and report David Pike [facility] Start: 02-04-2023 End: 02-04-2023 ambulatory David Pike Other [employer] Other Start: 02-04-2023 Office outpatient visit 25 minutes David Pike [facility] Start: 11-12-2022 End: 11-12-2022 ambulatory David Pike Other [employer] Other Start: 11-12-2022 Telephone encounter David Pike [facility] Start: 11-11-2022 End: 11-11-2022 ambulatory David Pike Other [employer] Other Start: 11-11-2022 Telephone encounter David Glendy [facility] Start: 10-16-2022 End: 10-16-2022 ambulatory David Pike Other [employer] Other Start: 10-16-2022 Office outpatient visit 15 minutes David Pike [facility] Start: 10-02-2022 End: 10-02-2022 ambulatory David Pike Other [employer] Other Start: 10-02-2022 Telephone encounter David Glendy [facility] Start: 10-01-2022 End: 10-01-2022 ambulatory Deepa Emeka Other [employer] Other Start: 10-01-2022 Office outpatient visit 25 minutes Deepa Emeka [facility] Ne[facility] Start: 09-26-2022 End: 09-26-2022 ambulatory MD David Pike Work Phone: [facility] Work Phone: Start: 09-26-2022 End: 09-26-2022 Patient encounter procedure MD David Pike Work Phone: [facility] Work Phone: Start: 09-23-2022 End: 09-23-2022 ambulatory MD David Pike Work Phone: [facility] Work Phone: Start: 09-23-2022 End: 09-23-2022 Patient encounter procedure MD David Pike Work Phone: [facility] Work Phone: Start: 09-23-2022 End: 09-24-2022 ambulatory [place] Facility:[facility] Start: 09-23-2022 End: 09-24-2022 ambulatory [place] MO Facility:[facility] Start: 09-23-2022 End: 09-23-2022 Lab Drop off [place] Quarles [facility] Start: 09-23-2022 End: 09-23-2022 Patient encounter procedure [place] Quarles [facility] Start: 09-12-2022 End: 09-12-2022 ambulatory David Pike Other [employer] Other Start: 09-12-2022 Office outpatient visit 25 minutes David RODRIGUEZ [facility] Start: 03-19-2022 End: 03-19-2022 Patient encounter procedure MD David Pike Work Phone: [facility] Start: 03-18-2022 End: 03-18-[address] DAVID PIKE Facility:[facility] Start: 03-10-2022 Adult health examination David Pike Other [employer] Other Start: 03-05-2022 End: 03-05-[address] DAVID PIKE Facility:[facility] Start: 02-20-2022 End: 02-21-[address] DAVID PIKE Facility:[facility] Start: 02-04-2022 End: 02-04-[address] DAVID PIKE Facility:[facility] Start: 12-11-2021 End: 12-12-[address] DAVID PIKE Facility:[facility] Start: 09-17-2021 End: 09-17-2021 ambulatory Deepa Hendrickson Other [employer] Other Start: 09-17-2021 Office outpatient visit 15 minutes Deepa Emeka [facility] Start: 09-16-2021 End: 09-17-[address] DAVID PIKE Facility:[facility] Start: 05-08-2021 End: 05-09-2021 ambulatory KAMALA HEBERT Facility:[facility] Start: 10-19-2018 End: 10-20-2018 Patient encounter procedure DEFAULT PHYSICIAN Facility:[facility] Start: 10-18-2018 End: 10-19-2018 Patient encounter procedure DEFAULT PHYSICIAN Facility:[facility] Start: 10-04-2018 End: 10-05-2018 Patient encounter procedure DAVID PIKE [facility] Procedures Date Procedure Procedure Detail Performing Clinician Start: 01-24-2025 Urine culture David dalton MD Work Phone: Start: 12-29-2024 MRI of head David molina MD Work Phone: Start: 10-05-2023 Screening mammograph y of bilateral breasts MD David Pike Work Phone: Start: 09-26-2022 Bilateral mammography M Zandra Pike Work Phone: Start: 09-26-2022 Ultrasonography of r ight breast MD David Pike Work Phone: Start: 02-06-2020 Cystourethroscopy wi th dilation of urethral stricture [place] Start: 10-05-2018 DISCHARGE PATIENT WILBERT A GLENDY Start: 10-05-2018 INITIATE OXYGEN THER APY PROTOCOL DAVID IPKE Start: 10-05-2018 Blood count complete auto&auto difrntl wbc DAVID PIKE Start: 10-05-2018 IP CONSULT TO CASE MANAGEMENT DAVID PIKE Start: 10-05-2018 NURSING COMMUNICATION Regine PIKE Start: 10-05-2018 PULSE OXIMETRY SPOT CHECK DAVID PIKE Start: 10-05-2018 REASON FOR NO MECHAN ICAL VTE PROPHYLAXIS DAVID PIKE Start: 10-05-2018 TELEMETRY MONITORING ALMA DELIA PIKE Start: 10-05-2018 DIET GENERAL DAVID HENRIQUEZ [...] DAVID PIKE Start: 10-04-2018 Assay of magnesium SMITH SHARPE PIKE Start: 10-04-2018 Assay of troponin quantitative DAVID PIKE Start: 10-04-2018 Blood count complete auto&auto difrntl wbc DAVID PIKE Start: 10-04-2018 Ecg routine ecg w/le ast 12 lds w/i&r DAVID PIKE Start: 08-31-2015 Cystoscopy [place] Clarisse ZULEYMA Start: 06-12-2015 left cataract with iol SHONNA CHELY Start: 12-12-2011 Cystoscopy [place] Robb ZULEYMA Cataract (morphologi c abnormality) SH[place]NA PETERSRY section [place] WALKER RRY Screening for malign ant neoplasm of breast David Pike Other Plan of Treatment Date Care Activity Detail Author Start: 02-09-2025 Bacteria identified in Urine by Culture Urine Culture [facility] Start: 02-09-2025 Urine culture [facility] Start: 01-24-2025 Bacteria identified in Urine by Culture Urine Culture [facility] Start: 01-24-2025 Urine culture [facility] Start: 08-17-2024 End: 08-17-2025 Cobalamin (Vitamin B12) [Mass/volume] in Serum or Plasma Vitamin B12 Lab Routine Mild late onset Alzheimer's dementia, unspecified whether behavioral, psychotic, or mood disturbance or anxiety (CMS/HCC) Expected: 08/17/2024 (Approximate), Expires: 08/17/2025 [facility] Work Phone: Comment on above: Expected: 08/17/2024 (Approximate), Expires: 08/17/2025 Start: 08-17-2024 End: 08-17-2025 Creatinine [Mass/volume] in Serum or Plasma Creatinine, Serum Lab Routine Mild late onset Alzheimer's dementia, unspecified whether behavioral, psychotic, or mood disturbance or anxiety (CMS/HCC) Expected: 08/17/2024 (Approximate), Expires: 08/17/2025 [facility] Comment on above: Expected: 08/17/2024 (Approximate), Expires: 08/17/2025 Start: 08-17-2024 End: 08-17-2025 MR Brain WO and W contrast IV MR brain w and wo contrast routine Imaging Routine Mild late onset Alzheimer's dementia, unspecified whether behavioral, psychotic, or mood disturbance or anxiety (CMS/HCC) Expected: 08/17/2024, Expires: 08/17/2025 [facility] Comment on above: Expected: 08/17/2024 , Expires: 08/17/2025 Start: 08-17-2024 End: 08-17-2025 Thyrotropin [Units/volume] in Serum or Plasma TSH Lab Routine Mild late onset Alzheimer's dementia, unspecified whether behavioral, psychotic, or mood disturbance or anxiety (CMS/HCC) Expected: 08/17/2024 (Approximate), Expires: 08/17/2025 [facility] Comment on above: Expected: 08/17/2024 (Approximate), Expires: 08/17/2025 Start: 08-17-2024 End: 08-17-2024 Patient encounter procedure 08/17/2024 9:30 AM EST Office Visit JENNA SWARTZ [address] [place] [id number] Rosie Jones DO [address] [place] [id number] Arrived JENNA SWARTZ Comment on above: Arrived Start: 06-17-2024 Patient referral [facility] Work Phone: Start: 03-13-2024 Influenza vaccination Influenza Vacc ine (#1) [facility] Start: 09-23-2022 [facility] Start: 04-29-2020 Pneumococcal Vaccine : 65+ Years (2 of 2 - PPSV23 or PCV20) Pneumococcal Vaccine: 65+ Years (2 of 2 - PPSV23 or PCV20) [facility] Bacteria identified in Urine by Culture [facility] Bacteria identified in Urine by Culture [facility] Patient referral [facility] Work Phone: Renal function 1999 panel - Serum or Plasma [facility] Renal function 1999 panel - Serum or Plasma [facility] Renal function 2000 panel - Serum or Plasma [facility] Immunizations Immunization Date Immunization Notes Care Provider Fa [facility] 05-04-2024 influenza virus vaccine, unspecified formulation Rosie Jones DO Work Phone: [facility] 05-16-2022 influenza virus vaccine, split virus (incl. purified surface antigen) David Pike Other [employer] Other 05-16-2022 influenza virus vaccine, unspecified formulation [facility] 05-08-2021 COVID-19 Vaccine Moderna - Documentation Purposes Only David Pike Other [facility] 04-22-2021 influenza virus vaccine, split virus (incl. purified surface antigen) David Pike Other [employer] Other 04-22-2021 influenza virus vaccine, unspecified formulation [facility] 08-30-2020 COVID-19 Vaccine Moderna - Documentation Purposes Only David Pike Other [facility] 07-30-2020 COVID-19 Vaccine Moderna - Documentation Purposes Only David Pike Other [facility] 05-20-2020 influenza virus vaccine, split virus (incl. purified surface antigen) David Pike Other [employer] Other 05-20-2020 influenza virus vaccine, unspecified formulation [facility] 05-10-2020 pneumococcal polysaccharide vaccine, 23 valent David Pike Other [facility] 08-22-2019 zoster vaccine, live David Pike Other [facility] 05-21-2019 influenza virus vaccine, split virus (incl. purified surface antigen) David Glendy Other [employer] Other 05-21-2019 influenza virus vaccine, unspecified formulation [facility] 06-21-2017 influenza virus vaccine, split virus (incl. purified surface antigen) David Glendy Other [employer] Other 06-21-2017 influenza virus vaccine, unspecified formulation [facility] 04-08-2016 influenza virus vaccine, split virus (incl. purified surface antigen) David Glendy Other [employer] Other 04-08-2016 influenza virus vaccine, unspecified formulation [facility] Payers Date Payer Category Payer Unknown [id number] 2022 Medicare (Managed Care) [id number]. [id number] 2022 Medicare [id number] 2018 Medicare [id number] 2014 Unknown [id number] 1959 Medicare [id number] 1959 Self-pay [id number] 1940 Unknown [id number] 2.16.840.1.392223.3.579.2.173 1940 Unknown [id number] 2.16.840.1.905288.3.579.2.647 1940 Unknown [id number] 2.16.840.1.586496.3.579.2.647 1940 Unknown [id number] 2.16.840.1.329223.3.579.2.593 1940 Unknown [id number] 2.16.840.1.188204.3.579.2.593 1940 Unknown [id number] 2.16.840.1.700359.3.579.2.593 1940 Unknown [id number] 2.16.840.1.149550.3.579.2.593 1940 Unknown [id number] 2.16.840.1.285395.3.579.2.593 1940 Unknown [id number] 2.16.840.1.071053.3.579.2.593 1940 Unknown [id number] 2.16.840.1.995950.3.579.2.727 1940 Unknown [id number] 2.16.840.1.904007.3.579.2.727 1940 Unknown [id number] 2.16.840.1.873545.3.579.2.1259 1940 Unknown [id number] 2.16.840.1.907295.3.579.2.1259 1940 Unknown [id number] 2.16.840.1.073870.3.579.2.718 Medicare Medicare [id number] Medicare [id number] Self-pay Self Pay [id number] Unknown Unknown Regular Insurance [id number] Unknown [id number] [id number] Social History Date Type Detail Facility Unknown if ever smoked [employer] Other Sex Assigned At [facility] Start: 1940 Sex Assigned At Female F [facility] Start: 09-23-2022 End: 09-17-2023 Tobacco smoking status Never smoked tobacco (finding) [facility] Tobacco smoking status Never [facility] Tobacco smoking status SDIS Tobacco smoking consumption unknown [facility] Start: 1940 Sex assigned at Not on file N [facility] Healthcare Start: 08-18-2024 End: 08-18-2024 Sex Female (finding) [facility] Functional Status Date Assessment Result Facility 09-23-2022 Functional Status N/A [facility] Clinical Notes 09-17-2021 to 12-22-2024 Note Date & Type Note Facility 12-22-2024 Evaluation note Diagnosis Onset Date Resolution 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 acute December 22, 2024 3:21pm CKD (chronic kidney disease) stage 4, GFR 15-29 ml/min acute December 22, 2024 3:21pm Gout acute December 22 3:21pm Hyperglyceridemia acute December 222024 3:21pm Renal cyst acute December 22 3:21pm [facility] Work Phone: 1(337) 307-897906-12-2025 Evaluation note* Diagnosis Onset Date Resolution Status Admit Date 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 acute December 22, 2024 3:21pm CKD (chronic kidney disease) stage 4, GFR 15-29 ml/min acute December 22, 2 025 3:21pm Gout acute December 22 3:21pm Hyperglyceridemia acute December 222024 3:21pm Renal cyst acute December 22 3:21pm Dysuria acute January 24 11:01am [facility] Work Phone: 1(642) 543-250306-12-2025 Evaluation note* Diagnosis Onset Date Resolution Status Admit Date 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 acute December 22, 2024 3:21pm CKD (chronic kidney disease) stage 4, GFR 15-29 ml/min acute December 22, 2 025 3:21pm Gout acute December 22 3:21pm Hyperglyceridemia acute December 222024 3:21pm Renal cyst acute December 22 3:21pm Dysuria acute January 24 11:01am Mild late onset Alzheimer's dementia chronic February 07, 2025 10:29am [facility] Work Phone: 1(466) 368-119006-12-2025 Evaluation note* Diagnosis Onset Date Resolution Status Admit Date Jereym hy kid w cr kid I-IV acute December 22, 2024 3:21pm CKD (chronic kidney disease) stage 4, GFR 15-29 ml/min acute December 22, 2 025 3:21pm Gout acute December 22 3:21pm Hyperglyceridemia acute December 222024 3:21pm Renal cyst acute December 22 3:21pm Dysuria acute January 24 11:01am Lacunar infarction chronic January 112024 10:29am Mild late onset Alzheimer's dementia chronic February 07, 2025 10:29am [facility] Work Phone: 1(512) 243-354706-12-2025 Evaluation note* Diagnosis Onset Date Resolution Status Admit Date 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 acute December 22, 2024 3:21pm CKD (chronic kidney disease) stage 4, GFR 15-29 ml/min acute December 22, 2 025 3:21pm Gout acute December 22 3:21pm Hyperglyceridemia acute December 222024 3:21pm Renal cyst acute December 22 3:21pm Dysuria acute January 24 11:01am Lacunar infarction chronic January 112024 10:29am Mild late onset Alzheimer's dementia chronic February 07, 2025 10:29am Dysuria acute February 09 11:06am [facility] Work Phone: 1(814) 350-708302-05-2025 History of Present illness Narrative* Rosie Jones, - 08/17/2024 9:30 AM EST Images from the original note were not [...] Awake, alert to person, place and time. Spangler cognitive assessment: Language is fluent without aphasia. [...] , wrist extensors , wrist flexor , marketing research coordinator strength 5/5. LUE Strength deltoid , biceps , triceps , wrist extensors , wrist flexor , marketing research coordinator strength 5/5. RLE Strength illopsoas, quadriceps, tibialis [...] reflex 1+ . Austin's sign negative. Coordination: Qjugjw-on-aghh testing and rapid alternating movements are normal Gait: Normal Review and summary of old records: Spangler cognitive assessment at [facility]: CT of the brain without contrast on 10/04/2018: Multiple old infarcts. Small- vessel ischemic disease noted. Assessment/Plan Diagnoses and all orders for this visit: Mild late onset Alzheimer's dementia, unspecified whether behavioral, psychotic, or mood disturbance or anxiety (CMS/HCC) It is my impression that the patient has signs and symptoms consistent with a mild Alzheimer's disease. The patient's Sharan cognitive assessment was . CT of the brain in 2019 was unremarkablefor acute pathology but did show evidence of [...] plan, and return instructions documented in this encounterSSM [facility] [id number] Evaluation note* Diagnosis Onset Date Resolution Status Admit Date CKD (chronic kidney disease) stage 4, GFR 15-29 ml/min acute [facility] er 2023 12:57pm HTN (hypertension) acute [facility] er 2023 12:57pm Memory changes acute June 172023 12:57pm Restless leg syndrome acute Dec ember 2023 12:57pm [facility] Work Phone: 1(822) 535-260502-09-2024 Evaluation note* Encounter Date Diagnosis Assessment Notes [...] - G25.81) Increased dose to 1mg qhs [employer] Other 10-30-2023 Evaluation note* Encounter Date Diagnosis Assessment Notes Treatment Notes Treatment Clinical Notes Apr, Restless leg syndrome (ICD-10 - G25.81) [employer] Other 10-25-2023 Evaluation note* Encounter Date Diagnosis Assessment Notes Treatment Notes Treatment Clinical Notes Apr, Acute non-recurrent maxillary sinusitis (ICD-10 - J01.00) Take antibiotics as prescribed. Rest fluids. Call if symptoms worsens or persist more than 1 week. [employer] Other 10-06-2023 Evaluation note* Encounter Date Diagnosis [...] side effect of regular use of med. [employer] Other 09-28-2023 Evaluation note* Encounter Date Diagnosis Assessment Notes Treatment Notes Treatment Clinical Notes Mar, Dysuria (ICD-10 - R30.0) repeat UA is normal. Continue present medication. will forward result to Dr. Shah in [place]. Mar, Visit for suture removal (ICD-10 - Z48.02) Pt tolerated well. Sutures removed. Skin tears and laceration treated with steristrips as well. [employer] Other 09-06-2023 Evaluation note* Encounter Date Diagnosis [...] We will continue to monitor without medication. [employer] Other 08-14-2023 Evaluation note* Encounter Date Diagnosis Assessment Notes Treatment Notes Treatment Clinical Notes Feb, Dysuria (ICD-10 - R30.0) [employer] Other 07-26-2023 Evaluation note* Encounter Date Diagnosis Assessment Notes Treatment Notes Treatment Clinical Notes Jan, Anxiety (ICD-10 - F41.9) Presently on klonopin. Was on prozac 20mg daily in 2019. She recalls stopping it as it made [...] is a good reading for her issues. [employer] Other 05-02-2023 Evaluation note* Encounter Date Diagnosis Assessment Notes Treatment Notes Treatment Clinical Notes November, Restless leg syndrome (ICD-10 - G25.81) [employer] Other 04-06-2023 Evaluation note* Encounter Date Diagnosis [...] to monitor situation and continue present medicines. [employer] Other 03-22-2023 Evaluation note* Encounter Date Diagnosis [...] We will continue to monitor without medication. [employer] Other 03-14-2023 NoteChief Complaint Pt referral for incontinence HPI Staff Patient is here for referral from Dr. Pike for Incontinence. 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 Patient states incontinence has been an issue over 7-8 years. Patient has tried Estradiol cream in the past that was given by Dr. Shah 2020. Patient statesit helped with UTI's. Patient uses [facility] PVR=16mL Dysuria: no Incomplete bladder emptying: yes [...] When Contact Information SHONNA MO PA-C, URL [address] [place] [address] Additional Instructions: Call patient & schedule PFPT Patient Education Urinary Incontinence Documentation recorded by the scribblanca Larson accurately reflects the services(s) I performed and decisions made by me. Authenticated by Shonna Mo PA-C on 09/23/2022 12:35:44. Mayela Gabriel, personally scribed for Shonna Mo PA-C on 09/23/2022 11:13:57. . Problem List/Past Medical History Ongoing BMI 30.0-30.9,adult Cystitis Mixed incontinence Nocturia Post-void dribbling Postinfective urethral stricture in female Recurrent UTI Stress incontinence Urgency incontinence Historical No qualifying data Procedure/Surgical History Cystourethroscopy with dilation of urethral stricture (02/06/2020), Cystoscopy (08/31/2015), left cataract with iol (06/12/2015), Cystoscopy (12/12/2011), Caesarean section, C (more content not included)...[facility] Comment on above:Result Comment: Electronically Signed By: SHONNA MO PA-C\.br\Date and Time Signed: 09/24/2311:35 EDT\.br\Electronically Co-Signed By: Mayela Larson.br\Date and Time Co-Signed: 09/23/22 11:14 [id number] Evaluation + Plan note Diagnostic Tests Pending * Urine Culture 09/23/22 [facility]03-14-2023 Hospital Discharge instructions Patient Education 09/23/2022 [...] nerve stimulation). For women, using a medical lab technologist to prevent urine leaks. This is a [...] right after experiencing incontinence. General instructions Take fssb-otm-yhdddid and prescription medicines only as told by [...] 08/06/2005 Document Revised: 07/09/2018 Document Reviewed: 10/08/2017 [employer] Patient Education 2019 [employer]. Follow Up Care 09/22/2022 11:14:40 With:SHONNA MO PA-C, URL Address: [address] [place] [address] When: Unknown [facility] 03-03-2023 Evaluation note* Encounter Date Diagnosis Assessment Notes Treatment Notes Treatment Clinical Notes Sep, Breast pain, right (ICD-10 - N64.4) Called [facility] - they agree B diagnostic would be [...] insurance. Requests a referral to Dr. Charles. [employer] Other 03-08-2022 Evaluation note* Encounter Date Diagnosis [...] continue the vitamin D 5000 units daily. [employer] Other Evaluation + Plan note No data available for this section [facility] evaluation noteNo assessment information available [facility] Work Phone: Evaluation noteNo InformationNortKirkbride Center [employer] Other Evaluation note* Diagnosis Onset Date Resolution Status Postoperative bleeding from incision acute 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 acu te CKD (chronic kidney disease) stage 4, GFR 15-29 ml/min acute Gout acute Hyperglyceridemia acute Renal cyst acute [facility] Work Phone: evaluation note* Diagnosis Onset Date Resolution Status CKD (chronic kidney disease) stage 4, GFR 15-29 ml/min acute HTN (hypertension) acute Hypothyroidism acute Restless leg syndrome acute [facility] Work Phone: Evaluation note* Diagnosis Onset Date Resolution Status CKD (chronic kidney disease) stage 4, GFR 15-29 ml/min acute HTN (hypertension) acute Hypothyroidism acute Restless leg syndrome acute 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 acu te CKD (chronic kidney disease) stage 4, GFR 15-29 ml/min acute Gout acute Hyperglyceridemia acute Renal cyst acute [facility] Work Phone: Evaluation note* Diagnosis Mild late onset Alzheimer's dementia, unspecified whether behavioral, psychotic, or mood disturbance or anxiety ([facility])- Primary documented in this encounter [facility] HealthcareHistory [...] EYE [address] LOVING CATARACT 2010 Surgical History BONE REMOVED RIGHT FOOT 2007 Surgical History 4 c-sections Hospitalization History SEE ABOVE Hospitalization History syncope 9 [place] [facility] Other [facility] general Narrative - Reported* Type Description Date [...] History SEE ABOVE Hospitalization History syncope 9 [employer] Other Hospital Discharge instructions No data available for this section [facility] No data available for this section [facility] reason for referral (narrative)No reason for referral information availableGood [facility]aritan [facility] Work Phone: Reason for visit Narrative* Consultation (Routine) - Pending Review Specialty Diagnoses / Procedures Referred By Contac t Referred To Contact Neurology Diagnoses Other amnesia Procedures [place] OFFICE/OUTPATIENT [facility] David Pike MD [address] [place] [address] Phone: tel: fax: Edgar De La Rosa MD [address] [place] [address] Phone: tel: fax: Referral ID Status Reason Start Date Expiration Date Visits Requested Visits Authorized [id number] Pending Review Consult and Treat 4 12/18/2024 [...] HTN (hypertension) Hypothyroidism Restless leg syndrome Jeremy yenny brown w cr kid I-IV CKD (chronic kidney [...] fever, not feeling well August 18 10:11am Chief Complaint Admit Date E78.1 N28.1 M10.9 I12.9 M18.4 November 28, 2024 2:45pm renal f/u December 22, 2024 3:21 pm G30.1 F02.A0 December 29, 2024 6:53 pm UA:Cloudy/Burning January 24, 2025 11:0 1am Reason for Visit Admit Date Jeremy brown w cr kid I-IV December 22, 2024 3:21pm CKD (chronic kidney disease) stage 4, GF R 15-29 ml/min December 22, 2024 3:21pm Gout December 22, 2024 3:21 pm Hyperglyceridemia December 22, 2024 3:21 pm Renal cyst December 22, 2024 3:21 pm Reason for Visit Admit Date Jeremy umana cr kid I-IV December 22, 2024 3:21pm CKD (chronic kidney disease) stage 4, GF R 15-29 ml/min December 22, 2024 3:21pm Gout December 22, 2024 3:21 pm Hyperglyceridemia December 22, 2024 3:21 pm Renal cyst December 22, 2024 3:21 pm Dysuria January 24, 2025 11:0 1am Chief Complaint Admit Date E78.1 N28.1 M10.9 I12.9 M18.4 November 28, 2024 2:45pm renal f/u December 22, 2024 3:21 pm G30.1 F02.A0 December 29, 2024 6:53 pm R30.0 January 24, 2025 11:0 0am UA:Cloudy/Burning January 24, 2025 11:0 1am Follow up February 07, 2025 10:2 9am Reason for Visit Admit Date Jeremy umana cr kid I-IV December 22, 2024 3:21pm CKD (chronic kidney disease) stage 4, GF R 15-29 ml/min December 22, 2024 3:21pm Gout December 22, 2024 3:21 pm Hyperglyceridemia December 22, 2024 3:21 pm Renal cyst December 22, 2024 3:21 pm Dysuria January 24, 2025 11:0 1am Mild late onset Alzheimer's dementia Jan 10:29am Chief Complaint Admit Date E78.1 N28.1 M10.9 I12.9 M18.4 November 28, 2024 2:45pm renal f/u December 22, 2024 3:21 pm G30.1 F02.A0 December 29, 2024 6:53 pm R30.0 January 24, 2025 11:0 0am UA:Cloudy/Burning January 24, 2025 11:0 1am Follow up February 07, 2025 10:2 9am UA, recheck February 09, 2025 11:0 6am Reason for Visit Admit Date Jeremy umana cr kid I-IV December 22, 2024 3:21pm CKD (chronic kidney disease) stage 4, GF R 15-29 ml/min December 22, 2024 3:21pm Gout December 22, 2024 3:21 pm Hyperglyceridemia December 22, 2024 3:21 pm Renal cyst December 22, 2024 3:21 pm Dysuria January 24, 2025 11:0 1am Lacunar infarction February 07, 2025 10:2 9am Mild late onset Alzheimer's dementia Jan 10:29am Reason for Visit Admit Date 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 December 22, 2024 3:21pm CKD (chronic kidney disease) stage 4, GF R 15-29 ml/min December 22, 2024 3:21pm Gout December 22, 2024 3:21 pm Hyperglyceridemia December 22, 2024 3:21 pm Renal cyst December 22, 2024 3:21 pm Dysuria January 24, 2025 11:0 1am Lacunar infarction February 07, 2025 10:2 9am Mild late onset Alzheimer's dementia Jan 10:29am Dysuria February 09, 2025 11:0 6am Reason for Referral Reason 09/23/22 @ 10 Freq uent UTIs Diagnosis 1 Frequent UTI (N39.0) Referral Organization [facility] shannen Referring Provider First Name David Referring Provider Last Name Glendy Referring Provider Specialty Family [facility] Referred Organization [facility] Referred Provider FRED CHARLES Referred Address [address],[place], [place],[address] Referred Provider Specialty Urology Referral Priority Routine Referral Appointment Date 2022-09-23 General Notes Anjelica Cavazos 03:41:16 PM >received today, notes locked, insurance card attached, referral faxed Anjelica Cavazos 09/22/2022 10:18:57 AM >faxed first attempt letter Anjelica Cavazos 09/23/2022 08:01:09 AM >RECEIVED FAX WITH APPT DATE AND TIME Anjelica Cavazos 09/24/2022 04:56:46 PM >faxed first request for consult notes Anjelica Cavazos 09/26/2022 04:08:05 PM >RECEIVED NOTES AND SENT TO DR. PIKE FOR REVIEW. CLOSING AT THIS TIME Additional Source Comments INFORMATION SOURCE (unrecogn ized section and content) DATE CREATED AUTHOR 10/08/2018 Mohini fuentes DATE CREATED AUTHOR AUTHOR'S EVAN ATMAURI 10/20/2018 [facility] DATE CREATED AUTHOR AUTHOR'S ORGANIZ ATION 03/21/2022 [facility] DATE CREATED AUTHOR AUTHOR'S ORGANIZ ATION 10/03/2022 [facility] DATE CREATED AUTHOR AUTHOR'S ORGANIZ ATION 11/04/2022 [facility] DATE CREATED AUTHOR AUTHOR'S ORGANIZ ATION 08/19/2024 [facility] EPIC DATE CREATED AUTHOR AUTHOR'S ORGANIZ ATION 02/12/2025 [facility] DATE CREATED AUTHOR AUTHOR'S ORGANIZ ATION 02/21/2025 [facility] REASON FOR VISIT (unrecogniz ed section and content) CKDCKDLeft BreastCKD and HTN labsReview ResultsRefillsmessageCHECK UPURINE SPECIMENCKD and HTNstitch removalRESTLESS LEGSHEAD COLD - TESTING FOR COVIDrefillRefillwellness Care Teams (unrecognized sec tion and content) Team Status: Active Member Role Status Dates David Pike MD Primary Care Provider Active Team Status: Inactive Member Role Status Dates David Pike MD Primary Care Provider Active Start: November 28, 2024 End: November 28, 2024 Deepa Hendrickson MD Attending Provider Active Start : November 28, 2024 End: November 28, 2024 Team Status: Inactive Member Role Status Dates David Pike MD Primary Care Provider Active Start: December 22, 2024 End: December 22, 2024 Deepa Hendrickson MD Attending Provider Active Start : December 22, 2024 End: December 22, 2024 Team Status: Inactive Member Role Status Dates David Pike MD Primary Care Provider Active Start: December 29, 2024 End: December 29, 2024 Rosie Jones DO Attending Provider Active Start: December 29, 2024 End: December 29, 2024 Team Status: Inactive Member Role Status Dates David Pike MD Primary Care Provider Active Start: January 24, 2025 End: January 24, 2025 David Pike MD Attending Provider Active St art: January 24, 2025 End: January 24, 2025 Team Status: Active Member Role Status Dates [...] David Pike MD Primary Care Provider Active Deepa Hendrickson MD Attending Provider Active Team Status: Inactive Member Role Status Dates David Pike MD Primary Care Provider, Other Provi anthony Active Deepa Hendrickson MD Attending Provider Active Team Status: Inactive Member Role Status Karina Pike MD Primary Care Provider, Attending P dulce Active Team Status: Inactive Member Role Status [...] October 09, 2023 End: October 09, 2023 DAPHNE Maloney Attending Provider Act tri Start: October 09, [...] March 29, 2024 End: March 29, 2024 Assistant Manager Retail Relationship Specialty Start Date End Date David Pike MD [address] [place] [address] PCP - General Family Medicine 06/28/24 Assistant Manager Retail Relationship Specialty Start Date End Date David Pike MD [address] [place] [address] PCP - [facility] 06/28/24 Team Status: Inactive Member Role Status Dates Dvaid Pike MD Primary Care Provide r, Attending Provider Active Start: August 18, 2024 End: August 18, 2024 Team Status: Inactive Member Role Status Dates David Pike MD Attending Provider Active St art: January 24, 2025 End: January 24, 2025 Team Status: Inactive Member Role Status Dates David Pike MD Primary Care Provider Active Start: February 07, 2025 End: February 07, 2025 Inessa Haynes APRN-MARINE RAILWAY OPERATOR-Kayleigh Attending Provider Active Start: February 07, 2025 End: February 07, 2025 Team Status: Inactive Member Role Status Dates David Pike MD Primary Care Provider Active Start: February 09, 2025 End: February 09, 2025 David Pike MD Attending Provider Active art: February 09, 2025 End: February 09, 2025 Team Status: Inactive Member Role Status Dates David Pike MD Attending Provider Active art: February 09, 2025 End: February 09, 2025 Goals (unrecognized section and content) Goals may [...] BE BASED ON THE PRIMARY CLINICAL RECORDS. [facility] [employer] provides no warranty or guarantee of the accuracy or completeness of information in this document.
--- NOTE | 2025-03-09 22:02 | ECG_ITS ---
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
--- NOTE | 2025-03-09 22:02 | CT_ITS ---
The [address] [address] Patient Name: THANIA FRANK MRN: [id number] date: 1940 Sex: F Assigned Patient Location: ED.MAIN Current Patient Location: ED.MAIN Accession/Order Number: [id number] Exam Date: 03/09/2025 22:35 Report Date: 03/09/2025 22:48 At the request of: SE TONEY MD Procedure: CT head/brain wo con CT head/brain wo con 03/09/2025 10:40 PM SIGNS AND SYMPTOMS: Dizziness, nausea, lightheadedness TECHNIQUE:Multi-detector CT axial slices of the brain were obtained without IV contrast. CT was performed with one or more of the following dose reduction techniques: Automated exposure control, adjustment of the mA and/or kV according to patient size, or use of iterative reconstruction technique. COMPARISON: None. FINDINGS: There is no shift of the midline structures, acute intracranial bleeding, mass effects, or evidence of acute ischemia. Atherosclerotic changes are present in the intracranial segments of the internal carotid arteries and V4 segments of the vertebral arteries. There is mild age-related cortical atrophy. There is periventricular white matter hypoattenuation. The ventricular system is normal in size. The brainstem and the cerebellum are unremarkable. The visualized intraorbital contents, the visualized paranasal sinuses, and the infratemporal soft tissues show no acute abnormality. The osseous structures in the skull base and the calvarium show no abnormality. CT/CT head/brain wo con IMPRESSION: No acute pathology. Chronic age-related neurodegenerative changes are noted as above. Impression dictated by: Jarret Hughes M.D. 03/09/2025 10:48 PM Dictation Location: [place] [address] Electronically authenticated by: [id number] Y Date: 03/09/2025 22:48
--- NOTE | 2025-03-09 22:04 | ED.DIZZY1 ---
HPI - Dizziness General Chief Complaint: Dizziness Stated Complaint: DIZZINESS Time Seen by Provider: 03/09/25 21:54 Source: patient Mode of arrival: ambulance Limitations: no limitations History of Present Illness HPI Narrative: This 84-year-old female with a history of chronic kidney disease presents for evaluation. The patient was at a volleyball game and was sitting down and had the urge to have a bowel movement. She became dizzy and lightheaded at that time. She laid down and did not pass out. She was brought to the emergency department by EMS. She states that she has issues when she has to use the bathroom and when she feels the urge to have a bowel movement she has to go immediately. She did soil herself at that time. She currently feels fine. She states she has had similar symptoms in the past. She denies any chest pain shortness of breath. She denies any current dizziness or lightheadedness. She denies any headache. She has not had any blurred vision slurred speech or confusion. She denies any abdominal pain. She denies any complaints whatsoever at this time and wishes to be discharged home. She is agreeable to me working her up for this episode. Related Data Home Medications ?Medication ?Instructions ?Recorded ?Confirmed amitriptyline 10 mg tablet 10 mg PO .QHS 08/27/24 08/27/24 amlodipine 5 mg tablet 7.5 mg PO .QD 08/27/24 08/27/24 aspirin 81 mg tablet,delayed 81 mg PO DAILY 08/27/24 08/27/24 release (Adult Aspirin Regimen) estradiol 0.01% (0.1 mg/gram) 1 g vaginal .TWICE PER WEEK 08/27/24 08/27/24 vaginal cream levothyroxine 88 mcg tablet 88 mcg PO QAM 08/27/24 08/27/24 lisinopril 20 mg tablet 20 mg PO .QD 08/27/24 08/27/24 methenamine hippurate 1 gram tablet 1 g PO .QD 08/27/24 08/27/24 ropinirole 1 mg tablet 1 mg PO .QHS 08/27/24 08/27/24 Allergies Allergy/AdvReac Type Severity Reaction Status Date / Time No Known Drug Allergies Allergy Verified 08/27/24 10:40 Review of Systems ROS Status of ROS 10 or more systems reviewed and unremarkable except as noted in history and below [facility] Social History Little interest or pleasure in doing things: not at all Feeling down, depressed, or hopeless: not at all Exam Narrative Exam Narrative: Vital signs and Nursing Notes reviewed: Patient is afebrile with a normal pulse, normal blood pressure, she is not hypoxic with pulse ox of 96% on room air General: Awake, alert, oriented, no acute distress, lying comfortably on the stretcher-GCS 15 HEENT: Normocephalic atraumatic, mucous membranes are moist and pink, eyes are clear, normal conjunctiva, vision is grossly intact, posterior pharynx is normal in appearance. Neck: Supple, no carotid bruits appreciated Chest: Lungs are clear to auscultation with good air entry, there is no wheezing rhonchi or rales appreciated no accessory muscle use, patient is speaking in complete sentences-no chest wall tenderness to palpation CVS: Regular rate and rhythm S1-S2, no murmurs rubs or gallops, pulses are brisk and equal bilaterally ABD: Soft, nondistended, nontender, no rebound guarding or rigidity, bowel sounds are normal, no pulsatile masses appreciated Extremities: Moving all extremities, no lower extremity tenderness or swelling noted, negative Homans' sign, pulses are brisk and equal bilaterally Skin: Normal in appearance without rash,pallor, petechiae or purpura Neuro: No focal deficits; speech is clear, there is no facial droop, upper and lower extremity strength and sensation is intact, negative pronator drift, normal cognition Constitutional Vital Signs, click to edit/add: Last Vital Signs Temp 99.1 F 03/09/25 21:21 Pulse 73 03/09/25 23:20 Resp 16 03/09/25 23:20 BP 144/79 H 03/09/25 21:57 Pulse Ox 96 03/09/25 23:20 O2 Del Method Room Air 03/09/25 21:21 Course Vital Signs Vital signs: Vital Signs Temperature 99.1 F 03/09/25 21:21 Pulse Rate 72 03/09/25 21:21 Respiratory Rate 18 03/09/25 21:21 Blood Pressure 144/78 H 03/09/25 21:21 Pulse Oximetry 96 03/09/25 21:21 Oxygen Delivery Method Room Air 03/09/25 21:21 Temperature 99.1 F 03/09/25 21:21 Pulse Rate 73 03/09/25 23:20 Respiratory Rate 16 03/09/25 23:20 Blood Pressure 144/79 H 03/09/25 21:57 Pulse Oximetry 96 03/09/25 23:20 Oxygen Delivery Method Room Air 03/09/25 21:21 MDM - Dizziness MDM Narrative Medical decision making narrative: This 84-year-old female is brought to the emergency department by EMS. She and her friend were at a volleyball game sitting on the bleachers when she felt dizzy and laid back. She soiled herself. She states that this has happened to her before. She states when she has the urge to have a bowel movement it comes quickly and sometimes she cannot make it to the bathroom. She did not actually pass out. Upon arrival she is feeling better and has no complaints. Her vital signs are stable, neuroexam is normal. EKG and blood work was ordered as well as a CT scan of the brain. She has a normal EKG with a right bundle branch block. Routine labs are reviewed. She has a normal white count and stable hemoglobin. Electrolytes are normal with an elevated BUN and creatinine of 42 and 1.63. The patient states she does have a history of stage III kidney disease and is being monitored by nephrology. Electrolytes are normal. CT scan of the brain is normal. Troponin is normal. She has not had any cardiac arrhythmia while on the monitor. She was given gentle IV fluid hydration. On reevaluation she still feels fine and request to be discharged home. I explained to her that she may have had a vasovagal episode due to the fact that she was sitting for a period of time then had the urge to have a bowel movement and became dizzy. She verbalizes understanding of this. She will follow-up closely with her family physician. Lab Data Attestation: I reviewed the patient's lab results. Labs: Lab Results 03/09/25 Range/Units 21:50 WBC 8.2 (4.0-11.0) 10^3/uL RBC 4.36 (4.20-5.40) 10^6/uL Hgb 13.1 (12.0-16.0) g/dL Hct 39.5 (36.0-48.0) % MCV 90.6 (81.0-99.0) fL MCH 30.0 (26.7-34.0) pg MCHC 33.2 (29.9-35.2) g/dL RDW 13.2 (11.0-15.0) % Plt Count 168 (150-450) 10^3/uL MPV 11.1 (9.5-13.5) fL Seg Neuts % (Manual) 86.0 H (43.0-75.0) Lymphocytes % (Manual) 6.0 L (20.5-60.0) % Monocytes % (Manual) 5.0 (1.7-12.0) % Eosinophils % (Manual) 2.0 (0.9-7.0) % Basophils % (Manual) 1.0 (0.2-2.0) % Neutrophils # (Manual) 7.05 H (1.4-6.5) 10^3/uL Lymphocytes # (Manual) 0.49 L (1.20-3.80) 10^3/uL Monocytes # (Manual) 0.41 (0.30-0.80) 10^3/uL Eosinophils # (Manual) 0.16 (0.00-0.70) 10^3/uL Basophils # (Manual) 0.08 (0.00-0.10) 10^3/uL Sodium 142 (136-145) mmol/L Potassium 3.9 (3.5-5.1) mmol/L Chloride 106 (98-107) mmol/L Carbon Dioxide 25.5 (21.0-32.0) mmol/L Anion Gap 14.4 BUN 42.0 H (7.0-18.0) mg/dL Creatinine 1.63 H (0.55-1.02) mg/dL Est GFR ( Amer) 36 L (>=60 mL/min/1.73m^2) Est GFR (Non-Af Amer) 30 L (>=60 mL/min/1.73m^2) BUN/Creatinine Ratio 25.8 Glucose 123 H (74-106) mg/dL Calcium 8.8 (8.5-10.1) mg/dL Total Bilirubin 0.5 (0.2-1.0) mg/dL AST 18 (15-37) U/L ALT 21 (14-59) U/L Alkaline Phosphatase 105 (46-116) U/L Troponin I High Sens 13.5 (4.0-51.3) pg/mL Total Protein 7.1 (6.4-8.2) g/dL Albumin 3.6 (3.4-5.0) g/dL Globulin 3.5 g/dL Albumin/Globulin Ratio 1.[address] scan - head: Radiologist's impression: ITS Impressions Head CT 03/09/25 22:02 IMPRESSION: No acute pathology. Chronic age-related neurodegenerative changes are noted as above. Impression dictated by: Jarret Hughes M.D. 03/09/2025 10:48 PM Dictation Location: [place] Electronically authenticated by: [id number] Y Date: 03/09/2025 22:48 ECG Data Attestation: I personally reviewed and interpreted this ECG as follows: (Sinus rhythm at 75 bpm, right bundle branch block, nonspecific ST changes, no acute ST segment elevation or T wave inversion) Discharge Plan Discharge Chief Complaint: Dizziness Clinical Impression: Near syncope, Vasovagal episode Patient Disposition: Home, Self-Care Time of Disposition Decision: 23:11 Condition: Good Prescriptions / Home Meds: No Action estradiol 0.01 % (0.1 mg/gram) cream 1 g VAGINAL .TWICE PER WEEK levothyroxine 88 mcg tablet 88 mcg PO QAM lisinopril 20 mg tablet 20 mg PO .QD methenamine hippurate 1 gram tablet 1 g PO .QD ropinirole 1 mg tablet 1 mg PO .QHS amlodipine 5 mg tablet 7.5 mg PO .QD amitriptyline 10 mg tablet 10 mg PO .QHS aspirin [Adult Aspirin Regimen] 81 mg tablet,delayed release (DR/EC) 81 mg PO DAILY Print Language: [place]ian Instructions: Near Syncope (ED) Referrals: Halina Lowe MD [Primary Care Provider, Family Practice] - 1 week
[2025-03-09 22:23] LABS: Hematocrit 39.5 % (36.0-48.0); Hemoglobin 13.1 g/dL (12.0-16.0); Mean Corpuscular HGB Conc 33.2 g/dL (29.9-35.2); Mean Corpuscular Hemoglobin 30.0 pg (26.7-34.0); Mean Corpuscular Volume 90.6 fL (81.0-99.0); Platelet Count 168 10^3/uL (150-450); Red Blood Count 4.36 10^6/uL (4.20-5.40); White Blood Count 8.2 10^3/uL (4.0-11.0)
[2025-03-09 22:35] LABS: Alanine Aminotransferase 21 U/L (14-59); Albumin Globulin Ratio 1.0; Albumin Level 3.6 g/dL (3.4-5.0); Alkaline Phosphatase 105 U/L (46-116); Anion Gap 14.4; Aspartate Amino Transferase 18 U/L (15-37); Blood Urea Nitrogen 42.0 mg/dL (7.0-18.0); Calcium 8.8 mg/dL (8.5-10.1); Carbon Dioxide 25.5 mmol/L (21.0-32.0); Chloride 106 mmol/L (98-107); Estimated GFR (African America 36 (>=60 mL/min/1.73m^2); Estimated GFR (Non-African Ame 30 (>=60 mL/min/1.73m^2); Globulin 3.5 g/dL; Glucose 123 mg/dL (74-106); Potassium 3.9 mmol/L (3.5-5.1); Sodium 142 mmol/L (136-145); Total Protein 7.1 g/dL (6.4-8.2)
[2025-03-09 22:40] LABS: Basophils Abs Manual 0.08 10^3/uL (0.00-0.10); Basophils Percent Manual 1.0 % (0.2-2.0); Eosinophils Absolute Manual 0.16 10^3/uL (0.00-0.70); Eosinophils Percent Manual 2.0 % (0.9-7.0); Lymphocytes Absolute Manual 0.49 10^3/uL (1.20-3.80); Lymphocytes Percent Manual 6.0 % (20.5-60.0); Monocytes Absolute Manual 0.41 10^3/uL (0.30-0.80); Monocytes Percent Manual 5.0 % (1.7-12.0); Segmented Neut Absolute Manual 7.05 10^3/uL (1.4-6.5); Segmented Neutrophils % Manual 86.0 (43.0-75.0)
[2025-03-09] MEDS: 0.9 % SODIUM CHLORIDE 1,000 ML 100 ML IV (22:46)
== END 2025-03-09 23:25 | disposition home or self-care (01) ==
PROVIDERS: Emergency Provider Emergency Medicine; PCP Family Medicine
DX: R55 Syncope and collapse (principal); N18.30 Chronic kidney disease, stage 3 unspecified
CPT/HCPCS: 36415; 70450; 80053; 84484; 85007; 85027; 93005; 99285

== ENCOUNTER 2025-05-09 09:29 | Outpatient (OUT) | payer MEDICARE, SELFPAY ==
--- OUTSIDE RECORDS SUMMARY | 2025-05-05 21:24 | XMS_ITS | Encounter Summary ---
Author Organization [facility] Address [address], [address] [place] [address] Care Team Providers Care Machine Pan Greaser Name Role Phone Halina Lowe MD Primary Care Provider [phone] Reason for Visit * ReasonCommentsDizziness * Auth/CertSpecialtyDiagnoses / ProceduresReferred By ContactReferred To Contact Diagnoses Near syncope Jarret Mai MD [address] [place] [address], [facility] [place] [address] Phone: tel: fax: [facility] [address] [place] [address] Referral IDStatusReasonStart DateExpiration DateVisits RequestedVisits [id number] Encounter Details DateTypeDepartmentCare Team (Latest Contact Info)Hgnaegfqsek81/24/2025 9:24 PM EDT - 05/06/2025 1:54 PM EDTHospital Encounter [facility] [address] [place] [address] Trinidad Marshall, DO [address] [place] [id number] Jarret Mai MD [address] [place] [address], [place] [address] Congestive heart failure, unspecified HF chronicity, unspecified heart failure type (HCC) (Primary Dx); Elevated troponin; Dizziness Discharge Disposition: Home or Self Care Social History Tobacco UseTypesPacks/DayYears UsedDateSmoking Tobacco: NeverAlcohol UseStandard Drinks/WeekCommentsNever0 (1 standard drink = 0.6 oz pure alcohol)AUDIT-CAnsw Date RecordedFrequency of Alcohol OaqdbuqabfwLhxqy40/25/2019Average Number of DrinksNot on file10/04/2018Frequency of Binge DrinkingNot on file10/04/2018 Housing Stability Vital SignAnswerDate RecordedIn the last 12 months, was there a time when you were not able to pay the mortgage or rent on time?No05/06/2025In the past 12 months, how many times have you moved where you were living?0 05/06/2025t any time in the past 12 months, were you homeless or living in a jail (including now)?No05/06/2025UDIT-CAnswerDate RecordedQ1: How often do you have a drink containing alcohol?Never05/06/2025verage Number of DrinksNot on file05/06/2025Frequency of Binge DrinkingNot on file05/06/2025Hunger Vital SignAnswerDate RecordedWithin the past 12 months, you worried that your food would run out before you got the money to buymore.Never true05/06/2025Within the past 12 months, the food you bought just didn't last and you didn't have money to get more.Never true05/06/2025PRAPARE - TransportationAnswerDate RecordedIn the past 12 months, has lack of transportation kept you from medical appointments or from getting medications?No05/06/2025In the past 12 months, has lack of transportation kept you from meetings, work, or from getting things needed for daily living?No05/06/2025HC UtilitiesAnswerDate RecordedIn the past 12 months has the electric, gas, oil, or water company threatened to shut off services in your home?No05/06/2025Interpersonal Safety Domain Source: IP Abuse ScreeningAnswerDate RecordedPhysical qxlmbNeinsh56/25/2025Verbal abuseDenies 05/06/2025Emotional zxrxzFcqepq39/25/2025Financial itcrhKdueei90/25/2025Sexual xpfbrCtvzkj31/25/2025CommentsUnknownSex and Gender InformationValueDate RecordedSex Assigned at BirthNot on fileLegal DvmLnkzoc01/12/2013 6:51 AM EST Gender IdentityNot on fileSexual OrientationNot on filedocumented as of this encounter Last Filed Vital Signs Vital SignReadingTime TakenCommentsBlood Huviorqy527/801 6:51 AM EDT Xhwxh434405/06/2025 6:51 AM VFOZvseviqqylt04.7 ??C (98.1 ??F)05/05/2025 9:26 PM EDTRespiratory Evnu9434 7:19 AM EDTOxygen Crgiwheqrc30%05/06/2025 7:19 AM EDTInhaled Oxygen Concentration--Mywnwo74.4 kg (153 lb)05/06/2025 7:19 AM EDT Ugrlai871.4 cm (5')05/06/2025 7:19 AM EDTBody Mass Index29.8805/06/2025 7:19 AM EDTdocumented in this encounter Functional Status documented as of this encounter Discharge Summaries * Jarret Mai MD - 05/06/2025 9:48 AM EDT Images from the original note were not included. Discharge Summary Ella Urena : 1940 Admit date: 05/05/2025 Discharge date: 05/06/2025 Admitting Physician: Jarret Mai MD Discharge Diagnoses: Principal Problem: Near syncope suspect prerenal Active Problems: Dizziness Prerenal azotemia likely from HCTZ Resolved Problems: * No resolved hospital problems. * Active Hospital Problems Diagnosis Date Noted Dizziness [R42] 05/06/2025 Near syncope suspect prerenal [R55] 05/06/2025 Prerenal azotemia likely from HCTZ [R79.89] 05/06/2025 Discharge Medications: Medication List START taking these medications losartan-hydroCHLOROthiazide 100-12.5 MG per tablet Commonly known as: HYZAAR Take 1 tablet by mouth daily CONTINUE taking these medications amitriptyline 10 MG tablet Commonly known as: ELAVIL atorvastatin 20 MG tablet Commonly known as: Lipitor Take 1 tablet by mouth daily busPIRone 5 MG tablet Commonly known as: BUSPAR calcium citrate-vitamin D 315-250 MG-UNIT Tabs per tablet Commonly known as: CITRICAL + D clonazePAM 0.5 MG tablet Commonly known as: KLONOPIN clopidogrel 75 MG tablet Commonly known as: PLAVIX donepezil 5 MG tablet Commonly known as: ARICEPT Fish Oil 1200 MG Cpdr GLUCOSAMINE CHOND MSM FORMULA PO levothyroxine 50 MCG tablet Commonly known as: SYNTHROID omeprazole 20 MG delayed release capsule Commonly known as: PRILOSEC Potassium Gluconate 595 MG Caps rOPINIRole 2 MG tablet Commonly known as: REQUIP * therapeutic multivitamin-minerals tablet * PreserVision AREDS 2 Caps vitamin B-12 1000 MCG tablet Commonly known as: CYANOCOBALAMIN vitamin D 1000 UNIT Tabs tablet Commonly known as: CHOLECALCIFEROL * This list has 2 medication(s) that are the same as other medications prescribed for you. Read thedirections carefully, and ask your doctor or other care provider to review them with you. STOP taking these medications lisinopril-hydroCHLOROthiazide 20-25 MG per tablet Commonly known as: PRINZIDE;ZESTORETIC Where to Get Your Medications These medications were sent to [facility]/pharmacy #[id number] [place], [place] - [address] [place] [address] - [phone] - F [phone] [place] [id number] losartan-hydroCHLOROthiazide 100-12.5 MG per tablet Consultants: None Hospital Course: Ella Urena is a 84 y.o. female admitted with near syncope episode. Workup negative except for slight elevation in BUN and creatinine. Thought to be more prerenal. Orthostatics were negative but that was after giving fluids. Medicines were adjusted I reduced the hydrochlorothiazide portion of her blood pressure medicine she felt fine and was discharged home. Exam: Regular heart rate. Clear lung sounds. Condition: Good Disposition: Discharge to Home DC summary time : 35 minutes Patient will be followed by Halina Lowe MD in 1-2 weeks Signed: Jarret Mai MD 05/06/2025, 9:49 AM documented in this encounter Discharge Instructions * Discharge Instructions* Jarret Mai MD - 05/06/2025 9:48 AM EDT Note blood pressure medicine was changed to losartan/HCTZ. Plenty of fluids Follow-up with primary care in 1 week please * Discharge Instr - Activity* Alcira Tong - 05/06/2025 11:27 AM EDT Activity as tolerated * Discharge Instr - Diet* Alicra Tong - 05/06/2025 11:28 AM EDT Good nutrition is important when healing from an illness, injury, or surgery. Follow any nutrition recommendations given to you during your hospital stay. If you were given an oral nutrition supplement while in the hospital, continue to take this supplement at home. You can take it with meals, in-between meals, and/or before bedtime. These supplements can be purchased at most local grocery stores, pharmacies, and chain super-stores. If you have any questions about your diet or nutrition, call the hospital and ask for the dietitian. Regular diet documented in this encounter Medications at Time of Discharge MedicationSigDispense QuantityRefillsLast FilledStart DateEnd Date clopidogrel (PLAVIX) 75 MG tablet Take 1 tablet by mouth daily02/07/2025 amitriptyline (ELAVIL) 10 MG tablet Take 1 tablet by mouth gzkpqcf1412/22/2024 busPIRone (BUSPAR) 5 MG tablet Take 1 tablet by mouth 2 times daily03/26/2025 donepezil (ARICEPT) 5 MG tablet Take 1 tablet by mouth jwrayya6305/02/2025 rOPINIRole (REQUIP) 2 MG tablet Take 1 tablet by mouth zkaxuxd4303/21/2025 losartan-hydroCHLOROthiazide (HYZAAR) 100-12.5 MG per tablet Take 1 tablet by mouth daily 30 tablet atorvastatin (LIPITOR) 20 MG tablet Take 1 tablet by mouth daily 30 tablet 10/05/2018 levothyroxine (SYNTHROID) 50 MCG tablet Take 50 mcg by mouth Daily clonazePAM (KLONOPIN) 0.5 MG tablet Take 0.5 mg by mouth 2 times daily as needed. omeprazole (PRILOSEC) 20 MG delayed release capsule Take 20 mg by mouth daily Misc Natural Products (GLUCOSAMINE CHOND MSM FORMULA PO) Take 1 tablet by mouth daily calcium citrate-vitamin D (CITRICAL + D) 315-250 MG-UNIT TABS per tablet Take 1 tablet by mouth daily (with breakfast) [place]-3 Fatty Acids (FISH OIL) 1200 MG CPDR Take 1 capsule by mouth daily vitamin D (CHOLECALCIFEROL) 1000 UNIT TABS tablet Take 1,000 Units by mouth daily vitamin B-12 (CYANOCOBALAMIN) 1000 MCG tablet Take 2,000 mcg by mouth daily Multiple Vitamins-Minerals (THERAPEUTIC MULTIVITAMIN-MINERALS) tablet Take 1 tablet by mouth daily Multiple Vitamins-Minerals (PRESERVISION AREDS 2) CAPS Take 1 capsule by mouth daily Potassium Gluconate 595 MG CAPS Take 1 tablet by mouth dailydocumented as of this encounter Progress Notes * Padma Ignacio RN - 05/06/2025 1:45 PM EDT Discharge instructions, medications, and new medication reviewed with the patient and daughter and appropriate educational materials and side effects teaching were provided. Instructed to call doctors office on Thursday to follow up. * Padma Ignacio RN - 05/06/2025 9:15 AM EDT [facility] called at [facility] time, only medication that has been filled is her requip. Cattle Trader spoke with patient at this time and she said she fills her medications at different pharmacies and someone will bring in her home medication list this afternoon. SUSAN Eli updated and notified. * Padma Ignacio RN - 05/06/2025 7:26 AM EDT [facility] Able to ambulate from wheelchair. Denies any pain or dizziness. Alertand oriented x4. Vitals, orthostatics, navigator, and assessment done at this time. Patient unsure of home medications someone is supposed to bring in her list this morning. mailroom associate applied. Will continue to monitor. documented in this encounter Plan of Treatment Not on file documented as of this encounter Procedures Procedure NamePriorityDate/TimeAssociated DiagnosisCommentsPULSE OXIMETRY SPOT LOBWYYpsbtzn39/25/2025 3:16 AM AVVYECKXRYFWNBO71/24/2025 10:[address] CHEST PULMONARY EMBOLISM W KWDRKZYJDYHV76/24/2025 10:[address] HEAD WO XMWLGZFGZXXW85/24/2025 10:38 PM EDT CTA HEAD NECK W ZGEAHFWPHLPM38/24/2025 10:29 PM EDT URINALYSIS WITH REFLEX TO RFWVHXBLROY85/24/2025 10:20 PM EDT MICROSCOPIC OLOYSDYOSUPhyoqvy26/24/2025 10:20 PM EDT EKG 12-ZNEDAsnutal45/24/2025 9:28 PM EDT CBC WITH AUTO ACPDXDSAOWJPZNEH70/24/2025 9:15 PM EDT MOAJHWTJLUKW31/24/2025 9:15 PM EDT D-DIMER, WEBGDACJQGBAIWPS14/24/2025 9:15 PM EDT BRAIN NATRIURETIC SDSESCLVDIV48/24/2025 9:15 PM EDT BASIC METABOLIC NUHUJNGWS71/24/2025 9:15 PM EDT documented in this encounter Results * (ABNORMAL) Troponin (05/05/2025 10:55 PM EDT)ComponentValueRef RangeTest MethodAnalysis TimePerformed AtPathologist SignatureTroponin, High Sensitivity 26(H)0 - 14 ng/L1 10:55 PM EDTMMETROHEALTH MAIN [facility]AMP[facility] Comment:High Sensitivity Troponin values cannot be compared with other Troponin methodologies.Specimen (Source)Anatomical Location / Laterality Collection Method / VolumeCollection TimeReceived TimeBloodBLOOD SPECIMEN / Wmnoagy2905/05/2025 10:55 PM EDT1 11:00 PM EDT Narrative Authorizing ProviderResult TypeResult StatusChtosin Marshall DOCHEMISTRY ORDERABLESFinal ResultPerforming OrganizationAddressCity/State/ZIP CodePhone Number [facility] [address] [phone] * CT CHEST PULMONARY EMBOLISM W CONTRAST (05/05/2025 10:38 PM EDT)Anatomical RegionLateralityModalityChestComputed TomographySpecimen (Source)Anatomical Location / LateralityCollection Method / VolumeCollection TimeReceived Time 05/05/2025 11:14 PM EDT Impressions 05/05/2025 11:18 PM EDT 1. No evidence of pulmonary embolism. 2. Cardiomegaly with pulmonary congestion and mild pulmonary edema. ??Mild CHF. 3. Abdominal aortic aneurysm measuring up to 33 mm in diameter. 4. Calcific coronary artery disease. 5. Evidence of prior granulomatous disease. Narrative 05/05/2025 11:18 PM EDT EXAMINATION: CTA OF THE CHEST 05/05/2025 10:38 pm TECHNIQUE: CTA of the chest was performed after the administration of intravenous contrast. ??Multiplanar reformatted images are provided for review. ??MIP images are provided for review. Automated exposure control, iterative reconstruction, and/or weight based adjustment of the mA/kV was utilized to reduce the radiation dose to as low as reasonably achievable. COMPARISON: None. HISTORY: ORDERING SYSTEM PROVIDED HISTORY: r/o PE, near syncope, elevated ddimer TECHNOLOGIST PROVIDED HISTORY: r/o PE, near syncope, elevated ddimer Additional Contrast?->1 FINDINGS: Pulmonary Arteries: Pulmonary arteries are adequately opacified for evaluation. ??No evidence of intraluminal filling defect to suggest pulmonary embolism. ??Main pulmonary artery is normal in caliber. Mediastinum: Cardiomegaly and calcific coronary artery disease. ??Calcified hilar nodes on the right. ??Great vessels normal. Lungs/pleura: Bilateral pulmonary congestion. ??Calcified granuloma right lower lobe. ??Mild pulmonary edema. Upper Abdomen: Abdominal aortic aneurysm measuring up to 33 mm in diameter. Soft Tissues/Bones: Spondylosis. Procedure Note Rhett Grijalva MD - 05/05/2025 EXAMINATION: CTA OF THE CHEST 05/05/2025 10:38 pm TECHNIQUE: CTA of the chest was performed after the administration of intravenous contrast. Multiplanar reformatted images are provided for review. MIP images are provided for review. Automated exposure control, iterative reconstruction, and/or weight based adjustment of the mA/kV was utilizedto reduce the radiation dose to as low as reasonably achievable. COMPARISON: None. HISTORY: ORDERING SYSTEM PROVIDED HISTORY: r/o PE, near syncope, elevated ddimer TECHNOLOGIST PROVIDED HISTORY: r/o PE, near syncope, elevated ddimer Additional Contrast?->1 FINDINGS: Pulmonary Arteries: Pulmonary arteries are adequately opacified for evaluation. No evidence of intraluminal filling defect to suggestpulmonary embolism. Main pulmonary artery is normal in caliber. Mediastinum: Cardiomegaly and calcific coronary artery disease.Calcified hilar nodes on the right. Great vessels normal. Lungs/pleura: Bilateral pulmonary congestion. Calcified granuloma right lower lobe. Mild pulmonary edema. Upper Abdomen: Abdominal aortic aneurysm measuring up to 33 mm indiameter. Soft Tissues/Bones: Spondylosis. IMPRESSION: 1. No evidence of pulmonary embolism. 2. Cardiomegaly with pulmonary congestion and mild pulmonary edema. MildCHF. 3. Abdominal aortic aneurysm measuring up to 33 mm in diameter. 4. Calcific coronary artery disease. 5. Evidence of prior granulomatous disease. Authorizing ProviderResult TypeResult StatusChtosin Marshall [facility] ORDERABLESFinal Result * CT Head WO Contrast (05/05/2025 10:38 PM EDT)Anatomical RegionLaterality ModalityHeadComputed TomographySpecimen (Source)Anatomical Location / LateralityCollection Method / VolumeCollection TimeReceived Time05/05/2025 11:11 PM EDT Impressions 05/05/2025 11:14 PM EDT No acute intracranial abnormality. Narrative 05/05/2025 11:14 PM EDT EXAMINATION: CT OF THE HEAD WITHOUT CONTRAST ??05/05/2025 10:34 pm TECHNIQUE: CT of the head was performed without the administration of intravenous contrast. Automated exposure control, iterative reconstruction, and/or weight based adjustment of the mA/kV was utilized to reduce the radiation dose to as low as reasonably achievable. COMPARISON: None. October 04, 2018 CT head HISTORY: ORDERING SYSTEM PROVIDED HISTORY: dizziness TECHNOLOGIST PROVIDED HISTORY: dizziness Decision Support Exception - unselect if not a suspected or confirmed emergency medical condition->Emergency Medical Condition (MA) FINDINGS: BRAIN/VENTRICLES: There is no acute intracranial hemorrhage, mass effect or midline shift. No abnormal extra-axial fluid collection. ??The sanches-white differentiation is maintained without evidence of an acute infarct. There is prominence of the ventricles and sulci due to global parenchymal volume loss. There are nonspecific areas of hypoattenuation within the periventricular and subcortical white matter, which likely represent chronic microvascular ischemic change. ??Intracranial atherosclerosis. ??In a moderate nonspecific white matter disease. ??Remote lacunar infarct left cerebellar hemisphere. ORBITS: The visualized portion of the orbits demonstrate no acute abnormality. SINUSES: The visualized paranasal sinuses and mastoid air cells demonstrate no acute abnormality. SOFT TISSUES/SKULL: No acute abnormality of the visualized skull or soft tissues. Procedure Note Rhett Grijalva MD - 05/05/2025 EXAMINATION: CT OF THE HEAD WITHOUT CONTRAST 05/05/2025 10:34 pm TECHNIQUE: CT of the head was performed without the administration of intravenous contrast. Automated exposure control, iterative reconstruction, and/orweight based adjustment of the mA/kV was utilized to reduce the radiation dose toas low as reasonably achievable. COMPARISON: None. October 04, 2018 CT head HISTORY: ORDERING SYSTEM PROVIDED HISTORY: dizziness TECHNOLOGIST PROVIDED HISTORY: dizziness Decision Support Exception - unselect if not a suspected or confirmed emergency medical condition->Emergency Medical Condition (MA) FINDINGS: BRAIN/VENTRICLES: There is no acute intracranial hemorrhage, mass effector midline shift. No abnormal extra-axial fluid collection. The sanches-white differentiation is maintained without evidence of an acute infarct. Thereis prominence of the ventricles and sulci due to global parenchymal volumeloss. There are nonspecific areas of hypoattenuation within the periventricularand subcortical white matter, which likely represent chronic microvascular ischemic change. Intracranial atherosclerosis. In a moderatenonspecific white matter disease. Remote lacunar infarct left cerebellarhemisphere. ORBITS: The visualized portion of the orbits demonstrate no acuteabnormality. SINUSES: The visualized paranasal sinuses and mastoid air cellsdemonstrate no acute abnormality. SOFT TISSUES/SKULL: No acute abnormality of the visualized skull or soft tissues. IMPRESSION: No acute intracranial abnormality. 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 Recommend MRI of the brain for further evaluation as well as surgical consultation. Narrative 05/05/2025 11:23 PM EDT EXAMINATION: CTA OF THE HEAD AND NECK WITH CONTRAST 05/05/2025 10:29 pm: TECHNIQUE: CTA of the head and neck was performed with the administration of intravenous contrast. Multiplanar reformatted images are provided for review. ??MIP images are provided for review. Stenosis of the internal carotid arteries measured using NASCET criteria. Automated exposure control, iterative reconstruction, and/or weight based adjustment of the mA/kV was utilized to reduce the radiation dose to as low as reasonably achievable. COMPARISON: None. HISTORY: ORDERING SYSTEM PROVIDED HISTORY: dizziness TECHNOLOGIST PROVIDED HISTORY: dizziness Decision Support Exception - unselect if not a suspected or confirmed emergency medical condition->Emergency Medical Condition (MA) FINDINGS: CTA NECK: AORTIC ARCH/ARCH VESSELS: No dissection or arterial injury. ??No significant stenosis of the brachiocephalic or subclavian arteries. CAROTID ARTERIES: No dissection, arterial injury, or hemodynamically significant stenosis by NASCET criteria. VERTEBRAL ARTERIES: No dissection, arterial injury, or significant stenosis. SOFT TISSUES: The lung apices are clear. ??No cervical or superior mediastinal lymphadenopathy. ??The larynx and pharynx are unremarkable. ??No acute abnormality of the salivary and thyroid glands. BONES: No acute osseous abnormality. CTA HEAD: ANTERIOR CIRCULATION: No significant stenosis of the intracranial internal carotid, anterior cerebral, or middle cerebral arteries. No aneurysm. 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 ??Moderate stenoses of the vertebral arteries are also present. ??Bilateral posterior communicating arteries are present. ??The tableman are patent to the extent visualized. ??No aneurysm. OTHER: No dural venous sinus thrombosis on this non-dedicated study. BRAIN: See separately dictated noncontrast head CT report. Procedure Note Gentry Allison MD - 05/05/2025 EXAMINATION: CTA OF THE HEAD AND NECK WITH CONTRAST 05/05/2025 10:29 pm: TECHNIQUE: CTA of the head and neck was performed with the administration ofintravenous contrast. Multiplanar reformatted images are provided for review. MIPimages are provided for review. Stenosis of the internal carotid arteriesmeasured using NASCET criteria. Automated exposure control, iterativereconstruction, and/or weight based adjustment of the mA/kV was utilized to reduce the radiation dose to as low as reasonably achievable. COMPARISON: None. HISTORY: ORDERING SYSTEM PROVIDED HISTORY: dizziness TECHNOLOGIST PROVIDED HISTORY: dizziness Decision Support Exception - unselect if not a suspected or confirmed emergency medical condition->Emergency Medical Condition (MA) FINDINGS: CTA NECK: AORTIC ARCH/ARCH VESSELS: No dissection or arterial injury. Nosignificant stenosis of the brachiocephalic or subclavian arteries. CAROTID ARTERIES: No dissection, arterial injury, or hemodynamically significant stenosis by NASCET criteria. VERTEBRAL ARTERIES: No dissection, arterial injury, or significantstenosis. SOFT TISSUES: The lung apices are clear. No cervical or superiormediastinal lymphadenopathy. The larynx and pharynx are unremarkable. No acute abnormality of the salivary and thyroid glands. BONES: No acute osseous abnormality. CTA HEAD: ANTERIOR CIRCULATION: No significant stenosis of the intracranialinternal carotid, anterior cerebral, or middle cerebral arteries. No aneurysm. POSTERIOR CIRCULATION: There is a moderate to severe stenosis of theproximal basilar artery. Moderate stenoses of the vertebral arteries are also present. Bilateral posterior communicating arteries are present. ThePCAs are patent to the extent visualized. No aneurysm. OTHER: No dural venous sinus thrombosis on this non-dedicated study. BRAIN: See separately dictated noncontrast head CT report. 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 Recommend MRI of the brain for further evaluation as well as surgical consultation. Authorizing ProviderResult TypeResult StatusTrinidad Marshall DOI CT ORDERABLESFinal Result * (ABNORMAL) Microscopic Urinalysis (05/05/2025 10:20 PM EDT)ComponentValueRef RangeTest MethodAnalysis TimePerformed AtPathologist SignatureWBC, UA2 TO 50 - 5 /HPF05/05/2025 10:20 PM [facility] LABRBC, UANone0 - 2 /HPF05/05/2025 10:20 PM [facility] LABEpithelial Cells, UA2 TO 50 - 25 /HPF05/05/2025 10:20 PM [facility] Bacteria, UATRACE(A)None05/05/2025 10:20 PM [facility] LABSpecimen (Source)Anatomical Location / LateralityCollection Method / Volume Collection TimeReceived Time05/05/2025 10:20 PM EDT1 10:24 PM EDT Narrative Authorizing ProviderResult TypeResult StatusTrinidad Marshall DOURINE ORDERABLES Final ResultPerforming OrganizationAddressCity/State/ZIP CodePhone Number [facility] [address] [id number], [facility] [phone] * Urinalysis with Reflex to Culture (05/05/2025 10:20 PM EDT)ComponentValueRef RangeTest MethodAnalysis TimePerformed AtPathologist SignatureColor, UAYellow Egkppq9505/05/2025 10:20 PM [facility] LABTurbidity UAClear Clear05/05/2025 10:20 PM [facility] LABGlucose, Ur NEGATIVENEGATIVE mg/dL05/05/2025 10:20 PM [facility] Bilirubin, NxslyPCSXNAXUHQAYAAPG19/24/2025 10:20 PM [facility] LABKetones, UrineNEGATIVENEGATIVE mg/dL05/05/2025 10:20 PM [facility] LABSpecific Dawson, UA1.0201.010 - 1.6080505/05/2025 10:20 PM [facility] LABUrine HgbNEGATIVENEGATIVE 05/05/2025 10:20 PM [facility] LABpH, Urine6.05.0 - 9.0 05/05/2025 10:20 PM [facility] LABProtein, UANEGATIVE NEGATIVE mg/dL05/05/2025 10:20 PM [facility] Urobilinogen, UrineNormal0.0 - 1.0 EU/dL05/05/2025 10:20 PM [facility] LABNitrite, XzlloHSPPYFLDBYPHKMCP33/24/2025 10:20 PM [facility] LABLeukocyte Esterase, ChmjaZZRYATCKECFPZGMT67/24/2025 10:20 PM [facility] LABSpecimen (Source)Anatomical Location / LateralityCollection Method / VolumeCollection TimeReceived Time Urine05/05/2025 10:20 PM EDT1 10:24 PM EDT Narrative Authorizing ProviderResult TypeResult StatusChrisbrittany PARK ORDERABLES Final ResultPerforming OrganizationAddressCity/State/ZIP CodePhone Number [facility] [address] [place] [address], [facility] [phone] * EKG 12 Lead (05/05/2025 9:28 PM EDT)ComponentValueRef RangeTest MethodAnalysis TimePerformed AtPathologist SignatureVentricular Yqui96TECRNXV [facility] Atrial Keey27RVHBEJS [facility] RADIOLOGYP-R Xwjgzkvd394xcVTRO [facility] RADIOLOGYQRS Lwzdgykq556qhULWC [facility] RADIOLOGYQ-T Qohktcim999flCREV [facility] RADIOLOGYQTc Calculation (Adanzett)454msMHPN [facility] RADIOLOGYP Lqdj59hsqogcmDALY [facility] RADIOLOGYR [place]-2degreesMHPN [facility] RADIOLOGYT Sfja276vnpmvcrADUZ [facility] RADIOLOGYSpecimen (Source)Anatomical Location / LateralityCollection Method / VolumeCollection TimeReceived Time05/05/2025 9:28 PM EDT Narrative [facility] - 05/07/2025 12:00 PM EDT Normal sinus rhythm Incomplete right bundle branch block Minimal voltage criteria for LVH, may be normal variant ( R in aVL ) Nonspecific ST and T wave abnormality Abnormal ECG When compared with ECG of 04-Oct-2018 20:09, No significant change was found Confirmed by Connor Calloway ([id number]) on 05/07/2025 12:00:52 PM Procedure Note Connor Calloway MD - 05/07/2025 Normal sinus rhythm Incomplete right bundle branch block Minimal voltage criteria for LVH, may be normal variant ( R in aVL ) Nonspecific ST and T wave abnormality Abnormal ECG When compared with ECG of 04-Oct-2018 20:09, No significant change was found Confirmed by Connor Calloway ([id number]) on 05/07/2025 12:00:52 PM Authorizing ProviderResult TypeResult StatusChrisbrittany MARTÍNEZ ORDERABLES Final ResultPerforming OrganizationAddressCity/State/ZIP CodePhone Number [facility] * (ABNORMAL) D-Dimer, Quantitative (05/05/2025 9:15 PM EDT)ComponentValueRef RangeTest MethodAnalysis TimePerformed AtPathologist SignatureD-Dimer, Quant 3.18(H)0.00 - 0.59 ug/mL FEU1 9:15 PM [facility] LABComment: ? When combined with a low clinical probability, a D dimer value of <0.50 ug/mL FEU is considered negative for DVT and PE (negative predictive value of 98%, sensitivity of 97%). If this test is not being used to help rule out DVT and PE, then the following reference range should be utilized: 0.00 - 0.59 ug/mL FEU. The D-Dimer assay is intended for use as an aid in the diagnosis of venous thromboembolism (DVT and PE) and the results should be interpreted in conjunction with the patient's medical history, clinical presentation, and other findings. ? Elevated levels of D-dimer activity can be seen in any state of coagulation activation and is not recommended in patients with therapeutic dose anticoagulant therapy for >24 hours, fibrinolytic therapy within the previous 7 days, trauma or surgery within the previous 4 weeks, disseminated malignancies, aortic aneurysm, sepsis, severe infections, pneumonia, severe skin infections, liver cirrhosis, advanced age, coronary disease, diabetes, and . A very low percentage of patients with DVT may yield D-dimer results below the cutoff of 0.5 ug/mL FEU. ??This is known to be more prevalent in patients with distal DVT. ? Specimen (Source)Anatomical Location / LateralityCollection Method / Volume Collection TimeReceived TimeBloodBLOOD SPECIMEN / Inmsevy6805/05/2025 9:15 PM EDT 05/05/2025 9:38 PM EDT Narrative Authorizing ProviderResult TypeResult StatusTrinidad Marshall DOHEMATOLOGY ORDERABLESFinal ResultPerforming OrganizationAddressCity/State/ZIP CodePhone Number [facility] [address] [place] [address] * (ABNORMAL) Brain Natriuretic Peptide (05/05/2025 9:15 PM EDT)ComponentValueRef RangeTest MethodAnalysis TimePerformed AtPathologist SignatureNT Pro-UFP052 (H)0 - 450 pg/mL05/05/2025 9:15 PM [facility] LABSpecimen (Source)Anatomical Location / LateralityCollection Method / VolumeCollection TimeReceived TimeBloodBLOOD SPECIMEN / Jrmqifb4805/05/2025 9:15 PM EDT1 9:38 PM EDT Narrative Authorizing ProviderResult TypeResult StatusTrinidad Marshall DOCHEMISTRY ORDERABLESFinal ResultPerforming OrganizationAddressCity/State/ZIP CodePhone Number [facility] [address] [place] [address], [facility] [phone] * (ABNORMAL) Troponin (05/05/2025 9:15 PM EDT)ComponentValueRef RangeTest Method Analysis TimePerformed AtPathologist SignatureTroponin, High Hkgxmmwnhmp20(H)0 - 14 ng/L1 9:15 PM [facility] LABComment:High Sensitivity Troponin values cannot be compared with other Troponin methodologies.Specimen (Source)Anatomical Location / LateralityCollection Method / VolumeCollection TimeReceived TimeBloodBLOOD SPECIMEN / Unknown 05/05/2025 9:15 PM EDT1 9:38 PM EDT Narrative Authorizing ProviderResult TypeResult StatusChtosin Marshall DOCHEMISTRY ORDERABLESFinal ResultPerforming OrganizationAddressCity/State/ZIP CodePhone Number [facility] [address] [phone] * (ABNORMAL) Basic Metabolic Panel (05/05/2025 9:15 PM EDT)ComponentValueRef RangeTest MethodAnalysis TimePerformed AtPathologist QwsbjojkaVdvxvx994973 - 145 mmol/L1 9:15 PM [facility] LABPotassium4.0 3.7 - 5.3 mmol/L1 9:15 PM [facility] LABChloride 80445 - 107 mmol/L1 9:15 PM [facility] QJJHP182 20 - 31 mmol/L1 9:15 PM [facility] LABAnion Gap 129 - 16 mmol/L1 9:15 PM [facility] LABGlucose 104(H)74 - 99 mg/dL05/05/2025 9:15 PM [facility] ATJGDH13 (H)8 - 23 mg/dL05/05/2025 9:15 PM [facility] Creatinine1.6(H)0.50 - 0.90 mg/dL05/05/2025 9:15 PM [facility] LABEst, Glom Filt Rate33(L)>60 mL/min/1.74v44405/05/2025 9:[address] [facility] LABComment: ? These results are not intended for use in patients <18 years of age. ? eGFR results are calculated without a race factor using the 2020 CKD-EPI equation. Careful clinical correlation is recommended, particularly when comparing to results calculated using previous equations. The CKD-EPI equation is less accurate in patients with extremes of muscle mass, extra-renal metabolism of creatine, excessive creatine ingestion, or following therapy that affects renal tubular secretion. BUN/Creatinine Ratio23(H) - 9:15 PM [facility] LABCalcium9.78.6 - 10.4 mg/dL05/05/2025 9:15 PM [facility] LABSpecimen (Source)Anatomical Location / LateralityCollection Method / VolumeCollection TimeReceived TimeBloodBLOOD SPECIMEN / Woxgqwp2405/05/2025 9:15 PM EDT1 9:38 PM EDT Narrative Authorizing ProviderResult TypeResult StatusChtosin Marshall DOCHEMISTRY ORDERABLESFinal ResultPerforming OrganizationAddressCity/State/ZIP CodePhone Number [facility] [address] [phone] * CBC with Auto Differential (05/05/2025 9:15 PM EDT)ComponentValueRef RangeTest MethodAnalysis TimePerformed AtPathologist SignatureWBC8.03.5 - 11.3 k/uL 05/05/2025 9:15 PM [facility] LABRBC4.533.95 - 5.11 m/uL 05/05/2025 9:15 PM [facility] BZHHfmjnbhlxx46.811.9 - 15.1 g/dL05/05/2025 9:15 PM [facility] JQNKgiyjexzcb84.5 36.3 - 47.1 %05/05/2025 9:15 PM [facility] OSSQIN44.482.6 - 102.9 fL05/05/2025 9:15 PM [facility] JGYBZF34.525.2 - 33.5 pg05/05/2025 9:15 PM [facility] HDZVJUV94.128.4 - 34.8 g/dL05/05/2025 9:15 PM [facility] VRNGHB97.711.8 - 14.4 %05/05/2025 9:15 PM [facility] JNIPfmlselhi285762 - 453 k/uL05/05/2025 9:15 PM [facility] KJXFAA79.78.1 - 13.5 fL05/05/2025 9:15 PM [facility] LABNRBC Automated0.0 0.0 per 100 WBC05/05/2025 9:15 PM [facility] Neutrophils %5936 - 65 %05/05/2025 9:15 PM [facility] Lymphocytes %3024 - 43 %05/05/2025 9:15 PM [facility] Monocytes %73 - 12 %05/05/2025 9:15 PM [facility] Eosinophils %31 - 4 %05/05/2025 9:15 PM [facility] Basophils %10 - 2 %05/05/2025 9:15 PM [facility] Immature Granulocytes %00 %05/05/2025 9:15 PM [facility] LABNeutrophils Absolute4.701.50 - 8.10 k/uL05/05/2025 9:15 PM [facility] LABLymphocytes Absolute2.381.10 - 3.70 k/uL05/05/2025 9:15 PM [facility] LABMonocytes Absolute0.580.10 - 1.20 k/uL 05/05/2025 9:15 PM [facility] LABEosinophils Absolute0.26 0.00 - 0.44 k/uL05/05/2025 9:15 PM [facility] Basophils Absolute0.050.00 - 0.20 k/uL05/05/2025 9:15 PM [facility] LABImmature Granulocytes Absolute<0.030.00 - 0.30 k/uL 05/05/2025 9:15 PM [facility] LABSpecimen (Source) Anatomical Location / LateralityCollection Method / VolumeCollection Time Received TimeBloodBLOOD SPECIMEN / Elwevfe9105/05/2025 9:15 PM EDT1 9:38 PM EDT Narrative Authorizing ProviderResult TypeResult StatusChtosin Marshall DOHEMATOLOGY ORDERABLESFinal ResultPerforming OrganizationAddressCity/State/ZIP CodePhone Number [facility] [address] [id number], [facility] [phone] documented in this encounter Visit Diagnoses Diagnosis Near syncope suspect prerenal- Primary Syncope and collapse Congestive heart failure, unspecified HF chronicity, unspecified heart failure type (HCC) Elevated troponin Other abnormal blood chemistry Dizziness Dizziness and giddiness Dizziness Dizziness and giddiness Prerenal azotemia likely from HCTZ Other symptoms involving urinary system documented in this encounter Admitting Diagnoses Diagnosis Near syncope Syncope and collapse documented in this encounter Administered Medications Medication OrderMAR ActionAction DateDoseRateSite 0.9 % sodium chloride infusion IntraVENous, at 5-250 mL/hr, PRN, if patient receiving piggyback infusions and maintenance fluids are not ordered OR KVO fluids to protect IV site / prevent frequent line interruptions/ long duration, Starting on 05/06/25 at 0314, For piggyback infusion, administer at same rate as piggyback fora total of 25 mL. Enter 25 mL into dose field and piggyback rate into rate field of order. If piggyback is infusing at a rate less than 100 mL/hr, enter 25 mL into dose field and 100 mL/hr into rate field of order. For KVO fluids, enter rate of 20 mL/hr or less into rate field of order. acetaminophen (TYLENOL) suppository 650 mg 650 mg, Rectal, EVERY 6 HOURS PRN, Starting on 05/06/25 at 0314, Until 05/06/25 at 1554, Pain Mild (1-3) OR per patient request for pain score (4-10), Fever, For temp greater than 100.4 F (38C), Administer if oral route cannot be used. acetaminophen (TYLENOL) tablet 650 mg 650 mg, Oral, EVERY 6 HOURS PRN, Starting on 05/06/25 at 0314, Until 05/06/25 at 1554, PainMild (1-3) OR per patient request for pain score (4-10), Fever, For temp greater than 100.4 F (38 C), Maximum dose of acetaminophen is 4000 mg from all sources in 24 hours. hydroCHLOROthiazide capsule 12.5 mg 12.5 mg, Oral, DAILY, First dose on 05/06/25 at 1130, Until Discontinued Given05/06/2025 11:14 AM EDT12.5 mg iopamidol (ISOVUE-370) 76 % injection 100 mL 100 mL, IntraVENous, IMG ONCE PRN, 1 dose, Starting on Thu05/05/25 at 2229, Until Thu05/05/25 at 2233, Other Given05/05/2025 10:33 PM LFO387 mLs losartan (COZAAR) tablet 100 mg 100 mg, Oral, DAILY, First dose on 05/06/25 at 1130, Until Discontinued, Along with HCTZ Given05/06/2025 11:14 AM YWA272 mg ondansetron (ZOFRAN) injection 4 mg 4 mg, IntraVENous, EVERY 6 HOURS PRN, Starting on 05/06/25 at 0314, Until 05/06/25 at 1554,Nausea, Vomiting, Administer if oral route cannot be used. ondansetron (ZOFRAN-ODT) disintegrating tablet 4 mg 4 mg, Oral, EVERY 8 HOURS PRN, Starting on 05/06/25 at 0314, Until 05/06/25 at 1554, Nausea, Vomiting polyethylene glycol (GLYCOLAX) packet 17 g 17 g, Oral, DAILY PRN, Starting on 05/06/25 at 0314, Until 05/06/25 at 1554, Constipation, First line therapy for constipation sodium chloride flush 0.9 % injection 10 mL 10 mL, IntraVENous, PRN, Starting on 05/06/25 at 0314, Until 05/06/25 at 1554, Line Care, After every IV line use sodium chloride flush 0.9 % injection 5-40 mL 5-40 mL, IntraVENous, EVERY 12 HOURS SCHEDULED (2 times per day), First dose on 05/06/25 at 0900, Until Discontinued, For Line Patency: Peripheral IV = 5 mL; Midline or Central Line = 10 mL/lumen. If following IV push medication, administer flush at same rate as the IV push. Flush volume is determined by type of infusion therapy being given. For non-viscous solutions use: Peripheral IV = 5 mLMidline or Central Line = 10 mL/lumen For viscous solutions (i.e. blood components, parenteral nutrition, contrast media, or after obtaining blood sample) use: Peripheral IV = 10 mL Midline or Central Line = 20 mL/lumen therapeutic multivitamin-minerals 1 tablet 1 tablet, Oral, DAILY, 2 doses, First dose on 05/06/25 at 0900, Last dose on 05/07/25 at 0900 Given05/06/2025 11:15 AM EDT1 tablet vitamin B-12 (CYANOCOBALAMIN) tablet 2,000 mcg 2,000 mcg, Oral, DAILY, 2 doses, First dose on 05/06/25 at 0900, Last dose on 05/07/25 at 0900 Given05/06/2025 11:15 AM EDT2,000 mcg Vitamin D (CHOLECALCIFEROL) tablet 1,000 Units 1,000 Units, Oral, DAILY, 2 doses, First dose on 05/06/25 at 1115, Last dose on 05/07/25 vh2505 Given05/06/2025 11:15 AM EDT1,000 Unitsdocumented in this encounter Active and Recently Administered Medications Times are shown in EDT.Medication Order/ atorvastatin (LIPITOR) tablet 20 mg 20 mg, Oral, EVERY BEDTIME, 2 doses, First dose on 05/06/25 at 2100, Last dose on 05/07/25 at 2100 busPIRone (BUSPAR) tablet 5 mg 5 mg, Oral, 2 TIMES DAILY, 4 doses, First dose on 05/06/25 at 1115, Last dose on 05/07/25 at 2100 * 1118 (Not Given - Provider: Alcira Tong - Reason: Patient/family refused) clopidogrel (PLAVIX) tablet 75 mg 75 mg, Oral, DAILY, 2 doses, First dose on 05/06/25 at 1115, Last dose on 05/07/25 at 0900 * 1118 (Not Given - Provider: Alcira Tong - Reason: Patient/family refused) donepezil (ARICEPT) tablet 5 mg 5 mg, Oral, NIGHTLY, 2 doses, First dose on 05/06/25 at 2100, Last dose on 05/07/25 at 2100 hydroCHLOROthiazide capsule 12.5 mg 12.5 mg, Oral, DAILY, First dose on 05/06/25 at 1130, Until Discontinued * 1114 (Given - Provider: Alcira Tong) levothyroxine (SYNTHROID) tablet 88 mcg 88 mcg, Oral, DAILY, 2 doses, First dose on 05/06/25 at 1600, Last dose on 05/07/25 at 0700, Tube feeding (TF) interaction, obtain physician order to manage, recommend holding TF for 30 minutes before and after dose. losartan (COZAAR) tablet 100 mg 100 mg, Oral, DAILY, First dose on 05/06/25 at 1130, Until Discontinued, Along with HCTZ * 1114 (Given - Provider: Alcira Tong) oyster shell calcium w/D 500-5 MG-MCG tablet 1 tablet 1 tablet, Oral, DAILY WITH BREAKFAST, 2 doses, First dose on 05/06/25 at 1115, Last dose on Thu05/07/25 at 0800, Administer, preferably with food, 2 hours before or after other medications. * 1118 (Not Given - Provider: Alcira Tong - Reason: Patient/family refused) pantoprazole (PROTONIX) tablet 40 mg 40 mg, Oral, DAILY BEFORE BREAKFAST, 2 doses, First dose on Thu05/07/25 at 0700, Last dose on 05/08/25 at 0700, Do not crush or break. Substituted for Omeprazole (PRILOSEC). rOPINIRole (REQUIP) tablet 2 mg 2 mg, Oral, NIGHTLY, 2 doses, First dose on 05/06/25 at 2100, Last dose on 05/07/25 at 2100 sodium chloride flush 0.9 % injection 5-40 mL 5-40 mL, IntraVENous, EVERY 12 HOURS SCHEDULED (2 times per day), First dose on 05/06/25 at 0900, Until Discontinued, For Line Patency: Peripheral IV = 5 mL; Midline or Central Line = 10 mL/lumen. If following IV push medication, administer flush at same rate as the IV push. Flush volume is determined by type of infusion therapy being given. For non-viscous solutions use: Peripheral IV = 5 mLMidline or Central Line = 10 mL/lumen For viscous solutions (i.e. blood components, parenteral nutrition, contrast media, or after obtaining blood sample) use: Peripheral IV = 10 mL Midline or Central Line = 20 mL/lumen * 1109 (Not Given - Provider: Alcira Tong - Reason: Other) therapeutic multivitamin-minerals 1 tablet 1 tablet, Oral, DAILY, 2 doses, First dose on 05/06/25 at 0900, Last dose on 05/07/25 at 0900 * 1115 (Given - Provider: Alcira Tong) vitamin B-12 (CYANOCOBALAMIN) tablet 2,000 mcg 2,000 mcg, Oral, DAILY, 2 doses, First dose on 05/06/25 at 0900, Last dose on 05/07/25 at 0900 * 1115 (Given - Provider: Alcira Tong) Vitamin D (CHOLECALCIFEROL) tablet 1,000 Units 1,000 Units, Oral, DAILY, 2 doses, First dose on 05/06/25 at 1115, Last dose on 05/07/25 sn1742 * 1115 (Given - Provider: Alcira Tong) Medication Order05/04//// 0.9 % sodium chloride infusion IntraVENous, at 5-250 mL/hr, PRN, if patient receiving piggyback infusions and maintenance fluids are not ordered OR KVO fluids to protect IV site / prevent frequent line interruptions/ long duration, Starting on 05/06/25 at 0314, For piggyback infusion, administer at same rate as piggyback fora total of 25 mL. Enter 25 mL into dose field and piggyback rate into rate field of order. If piggyback is infusing at a rate less than 100 mL/hr, enter 25 mL into dose field and 100 mL/hr into rate field of order. For KVO fluids, enter rate of 20 mL/hr or less into rate field of order. acetaminophen (TYLENOL) suppository 650 mg(Linked Group 1) 650 mg, Rectal, EVERY 6 HOURS PRN, Starting on 05/06/25 at 0314, Until 05/06/25 at 1554, Pain Mild (1-3) OR per patient request for pain score (4-10), Fever, For temp greater than 100.4 F (38C), Administer if oral route cannot be used. acetaminophen (TYLENOL) tablet 650 mg(Linked Group 1) 650 mg, Oral, EVERY 6 HOURS PRN, Starting on 05/06/25 at 0314, Until 05/06/25 at 1554, PainMild (1-3) OR per patient request for pain score (4-10), Fever, For temp greater than 100.4 F (38 C), Maximum dose of acetaminophen is 4000 mg from all sources in 24 hours. clonazePAM (KLONOPIN) tablet 0.5 mg 0.5 mg, Oral, 2 TIMES DAILY PRN, 2 doses, Starting on 05/06/25 at 0713, Until 05/06/25 at 1554, Anxiety iopamidol (ISOVUE-370) 76 % injection 100 mL (COMPLETED) 100 mL, IntraVENous, IMG ONCE PRN, 1 dose, Starting on Thu05/05/25 at 2229, Until Thu05/05/25 at 2233, Other * 2233 (Given - Provider: Gualberto Dyson) ondansetron (ZOFRAN) injection 4 mg(Linked Group 2) 4 mg, IntraVENous, EVERY 6 HOURS PRN, Starting on 05/06/25 at 0314, Until 05/06/25 at 1554,Nausea, Vomiting, Administer if oral route cannot be used. ondansetron (ZOFRAN-ODT) disintegrating tablet 4 mg(Linked Group 2) 4 mg, Oral, EVERY 8 HOURS PRN, Starting on 05/06/25 at 0314, Until 05/06/25 at 1554, Nausea, Vomiting polyethylene glycol (GLYCOLAX) packet 17 g 17 g, Oral, DAILY PRN, Starting on 05/06/25 at 0314, Until 05/06/25 at 1554, Constipation, First line therapy for constipation sodium chloride flush 0.9 % injection 10 mL 10 mL, IntraVENous, PRN, Starting on 05/06/25 at 0314, Until 05/06/25 at 1554, Line Care, After every IV line use Order Group 1: acetaminophen (TYLENOL) tablet 650 mgJump to med 650 mg, Oral, EVERY 6 HOURS PRN, Starting on 05/06/25 at 0314, Until 05/06/25 at 1554, PainMild (1-3) OR per patient request for pain score (4-10), Fever, For temp greater than 100.4 F (38 C), Maximum dose of acetaminophen is 4000 mg from all sources in 24 hours. Or acetaminophen (TYLENOL) suppository 650 mgJump to med 650 mg, Rectal, EVERY 6 HOURS PRN, Starting on 05/06/25 at 0314, Until 05/06/25 at 1554, Pain Mild (1-3) OR per patient request for pain score (4-10), Fever, For temp greater than 100.4 F (38C), Administer if oral route cannot be used. Group 2: ondansetron (ZOFRAN-ODT) disintegrating tablet 4 mgJump to med 4 mg, Oral, EVERY 8 HOURS PRN, Starting on 05/06/25 at 0314, Until 05/06/25 at 1554, Nausea, Vomiting Or ondansetron (ZOFRAN) injection 4 mgJump to med 4 mg, IntraVENous, EVERY 6 HOURS PRN, Starting on 05/06/25 at 0314, Until 05/06/25 at 1554,Nausea, Vomiting, Administer if oral route cannot be used. documented in this encounter Care Teams Team MemberRelationshipSpecialtyStart DateEnd Date Halina Lowe MD PCP - GeneralFamily Medicine10/04/18documented as of this encounter
--- OUTSIDE RECORDS SUMMARY | 2025-05-08 08:29 | XMS_ITS | Continuity of Care Document ---
Author Organization [facility] Address [address] [place] [address] Phone Care Team Providers Care Marking Machine Tender Name Role Phone Halina Lowe MD Primary Care Provider Inessa Haynes APRN-BRINE PURIFIER-C Attending Provider + Halina Lowe MD Attending Provider Dorota Loaiza CMA Attending Provider Unavaila Thomas Hancock PhD Attending Provider [phone] Shonna Villeda APRN Attending Provider Care Teams Patient Care Team Team Status: Active Member Role/Relationship Status Dates Halina Lowe MD Primary Care Provider Active Visit Care Team Team Status: Inactive Member Role/Relationship Status Dates Halina Lowe MD Primary Care Provider Active Start: February 07, 2025 End: February 07, 2025KALE Carbajal-CAttending ProviderActiveStart: February 07, 2025 End: February 07, 2025 Visit Care Team Team Status: Inactive Member Role/Relationship Status Dates Halina Lowe MD Primary Care Provider Active Start: February 09, 2025 End: February 09, 2025Chrissy Quan ProviderActiveStart: February 09, 2025 End: February 09, 2025 Visit Care Team Team Status: Inactive Member Role/Relationship Status Dates Halina Lowe MD Attending Provider Active St art: February 09, 2025 End: February 09, 2025 Visit Care Team Team Status: Active Member Role/Relationship Status Dates Halina Lowe MD Primary Care Provider Active Start: March 09, 2025 Halie Quanending ProviderActiveStart: March 09, 2025 Visit Care Team Team Status: Inactive Member Role/Relationship Status Karina Lowe MD Primary Care Provider Active Start: March 14, 2025 End: March 14, 2025Halina Lowe MDAttending ProviderActiveStart: March 14, 2025 End: March 14, 2025 Visit Care Team Team Status: Active Member Role/Relationship Status Dates Halina Lowe MD Primary Care Provider Active Start: March 16, 2025 Dorota Loaiza CMAAttending ProviderActiveStart: March 16, 2025 Visit Care Team Team Status: Inactive Member Role/Relationship Status Karina Lowe MD Primary Care Provider Active Start: March 21, 2025 End: March 21, 2025Halina Lowe MDAttending ProviderActiveStart: March 21, 2025 End: March 21, 2025 Visit Care Team Team Status: Inactive Member Role/Relationship Status Karina Lowe MD Primary Care Provider Active Start: April 18, 2025 End: April 18, 2025Thomas Alexander PhDAttending ProviderActiveStart: April 18, 2025 End: April 18, 2025 Visit Care Team Team Status: Inactive Member Role/Relationship Status Karina Lowe MD Primary Care Provider Active Start: April 19, 2025 End: April 19, 2025Thomas Alexander PhDAttending ProviderActiveStart: April 19, 2025 End: April 19, 2025 Visit Care Team Team Status: Inactive Member Role/Relationship Status Karina Lowe MD Primary Care Provider Active Start: April 21, 2025 End: April 21, 2025Shonna Villeda APRN BIOINFORMATICS SPECIALIST-CAttending ProviderActive Start: April 21, 2025 End: April 21, 2025 Visit Care Team Team Status: Inactive Member Role/Relationship Status Karina Lowe MD Attending Provider Active St art: April 21, 2025 End: April 21, 2025 Visit Care Team Team Status: Inactive Member Role/Relationship Status Karina Lowe MD Primary Care Provider Active Start: May 02, 2025 End: May 02, 2025Chrissy Quan ProviderActiveStart: May 02, 2025 End: May 02, 2025 Patient Care Team Team Status: Inactive Member Role/Relationship Status Dates Halina Lowe MD Primary Care Provider Active Start: May 08, 2025 End: May 08, 2025Chrissy Quan ProviderActiveStart: May 08, 2025 End: May 08, 2025 Chief Complaint and Reason for Visit Chief Complaint Admit Date Follow up February 07, 2025 10:2 9am UA, recheck February 09, 2025 11:0 6am R30.0 February 09, 2025 11:1 5am UA:Burning/Cloudy March 14, 2025 1:04pm Amb Documentation March 16, 2025 11:31am Wellness/TBH ER f/u March 21, 2025 1:01pm APPROVED AUTH #[id number]; ASSESSMENT Oc tober 2024 1:29pm APPROVED AUTH #[id number]; TESTING Octob er 2024 12:12pm UA:Frequency/Burning April 21, 2025 9:59am R30. April 21, 2025 1 0:22am Discuss Results (Dr. Alexander) May 02, 2025 9:47am [facility] F/U May 08, 2025 11:44am Reason for Visit Admit Date Lacunar infarction February 07, 2025 10:2 9am Mild late onset Alzheimer's dementia Micheal y 2024 10:29am Dysuria February 09, 2025 11:0 6am UTI (urinary tract infection) March 14, 2025 1:04pm Anxiety March 21, 2025 1:01pm HTN (hypertension) March 21, 2025 1:01pm Medicare annual wellness visit, subseque nt March 21, 2025 1:01pm Memory changes March 21, 2025 1:01pm Restless leg syndrome March 21 1:01pm Mild late onset Alzheimer's dementia Sep tember 2024 1:01pm Depression with anxiety April 18 1:29pm Memory changes April 18, 2025 1: 29pm Word finding difficulty April 18 1:29pm Lacunar infarction April 18, 2025 1: 29pm Memory loss April 19, 2025 12 :12pm Mild neurocognitive disorder April 12:12pm Moderate anxiety April 19, 2025 12 :12pm Moderate recurrent major depression 2024 12:12pm Word finding difficulty April 19 12:12pm Lacunar infarction April 19, 2025 12 :12pm UTI (urinary tract infection) April 212024 9:59am Menopause May 02, 2025 9 :47am Mild neurocognitive disorder April 9:47am Moderate recurrent major depression 2024 9:47am Allergies, Adverse Reactions, Alerts Allergen Type Severity Reaction Last Updated Verified Status fesoterodine Allergy Unknown Hives April 12:03pm Yes Active fluoxetine Allergy Unknown Hives May 08, 2025 12:03pm Yes Active nitrofurantoin Allergy Unknown Comment:Sever e Diarrhea, diarrhea May 08, 2025 12:03pm Yes Active penicillin G benzathine Allergy Unknown Hives May 08, 2025 12:03pm Yes Active Penicillins Allergy Unknown Hives May 08, 2025 12:03pm Yes Active Luujfnv-BCV-KvN Reductase Inhibitor Allergy Unknown Hives April 12:03pm Yes Active Antihistamine & Nasal Deconges Allergy Unknown Hives September 04, 2023 9:55am No Active DECONGESTANTS Allergy Unknown Hives September 042023 9:55am No Active Social History Smoking Status Status Start Date End Date Date of Observa tion Never smoked tobacco (finding) September 17, 2023 9:25am Observation Status Observation Response Date of Response Legal Sex Female (finding) Sex Assigned At BirthFemaleDecember 1939 Family History Relationship Condition Age at Onset Recorded Date/T robinson brother Heart disease Unknown Malignant neoplasmUnknownFamily history of mental disorderUnknowndaughterFamily history of mental disorderUnknownfatherDeceasedUnknownHeart diseaseUnknownfamily memberDeceasedUnknownmotherAneurysmUnknownDeceasedUnknownMalignant neoplasm Unknown Problems Active Problems Problem Diagnosis/Recorded Date Onset Date Stat Depression with anxiety April 19, 2025 4:26pm Unkno wn Active Word finding difficulty April 19, 2025 4:26pm Unkno wn Active UTI (urinary tract infection) March 14, 2025 1:54 pm Unknown Active Medicare annual wellness vis it, subsequent March 26, 2025 6:02pm Unknown Active Mild late onset Alzheimer's dementia February 07, 2025 8 :05am Unknown Active Lacunar infarction February 07, 2025 4:45pm Unknown Active Screening mammogram for breast cancer September 03 7:20pm Unknown Active Menopause May 02, 2025 10:31am Unknown A ctive Hyperglyceridemia September 04, 2023 10:11am Unknown Active Influenza A August 18, 2024 12:32pm Unknown A ctive Gout September 04, 2023 10:11am Unknown Active Postoperative bleeding from incision September 09 3:28pm Unknown Active CKD (chronic kidney disease) stage 4, GFR 15-29 ml/min September 04, 2023 10:10am Unknown Active Memory loss April 20, 2025 9:22pm Unknown Act tri Anxiety September 04, 2023 10:10am Unknown Active Dysuria March 11, 2024 9:47am Unknown Act tri Moderate anxiety April 20, 2025 9:22pm Unknown Active Mild neurocognitive disorder April 20, 2025 9:21pm Unknown Active Hypothyroidism September 04, 2023 10:11am Unknown Active 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 September 04, 2023 10:10am U nknown Active Renal cyst September 16, 2023 6:34pm Unknown Activ e Restless leg syndrome September 04, 2023 10:11am Unkn own Active Moderate recurrent major depression April 20, 2025 9:22pm Unknown Active Memory changes June 17, 2024 2:20pm Unknown Active CKD stage 3a, GFR 45-59 ml/min August 18, 2024 12:3 3pm Unknown Active HTN (hypertension) September 04, 2023 10:11am Unknown Active Inactive/Resolved Problems Problem Diagnosis/Recorded Date Onset Date Stat us Hypercalcemia September 04, 2023 10:11am Unknown Resolved Medications Medication Status Dose Units Route Directions Qty Days Refills S tart Date Stop Date End Date Reason(s) Instructions Adherence Levothyroxine 75 mcg tablet Discontinued 0 .ROUTE.FNZRNKR414Zmn 2023 10:00amJuly 2023 8:33amTAKE 1 TABLET BY MOUTH EVERY MORNING ON AN EMPTY STOMACHAmlodipine 5 mg tabletDiscontinued0.ROUTE .[id number] 2023 2:29pmAugust 2023 5:46pmTAKE 1 AND 1/2 TABLETS BY MOUTH ONCE A DAYLevothyroxine 75 mcg tabletDiscontinued0.ROUTE.KLESFFU363Saqw 1st, 2024 8:33amSeptember 2023 11:20pmTAKE 1 TABLET BY MOUTH EVERY MORNING ON AN EMPTY STOMACHRopinirole 1 mg ikdkrbPtqwyqpvvakz5GHKVNfdvu057Rkvgkz 2023 9:34amDecember 2023 10:01amAmlodipine 5 mg tabletDiscontinued0.ROUTE .HZJUXRR7466Hoogcn 2023 5:46pmSeptember 2023 9:16amTAKE 1 AND 1/2 TABLETS BY MOUTH ONCE A DAYAmitriptyline 10 mg tabletDiscontinued0.ROUTE.COMPLEX 901A2023 10:09pmSeptember 2023 9:16amTAKE 1 TABLET BY MOUTH EVERYDAY AT BEDTIMELevothyroxine 88 mcg tabletDiscontinued0.ROUTE.VNIGBQJ422 March 18, 2024 11:20pmSeptember 2023 9:16amTAKE 1 TABLET BY MOUTH EVERY MORNING ON AN EMPTY STOMACHLevothyroxine 88 mcg tabletDiscontinued0.ROUTE .QYPNRDS083Nrrxubpv 2nd, 2024 1:39pmFebruary 2024 4:15pmTAKE 1 TABLET BY MOUTH EVERY DAY IN THE MORNING ON AN EMPTY STOMACHRopinirole 1 mg tablet Discontinued0.ROUTE.BQPUCSF143Kytmbsgx 30th, 2024 10:01amJuly 2024 4:30pm TAKE 1 TABLET BY MOUTH DAILYLisinopril 20 mg tabletDiscontinued0.ROUTE.JSPIALP16 3Jan2024 3:50pmOctober 2024 12:20pmTAKE 1 TABLET BY MOUTH EVERY DAYLevothyroxine 88 mcg tabletDiscontinued0.ROUTE.ZBSBJDE291Tqfuqwyl 17th, 2025 4:15pmAugust 2024 10:46amTAKE 1 TABLET BY MOUTH EVERY DAY IN THE MORNING ON AN EMPTY STOMACHRopinirole 1 mg tabletDiscontinued0.ROUTE.EGPPPGA232Mrjp 2024 4:30pmSeptember 2024 1:39pmTAKE 1 TABLET BY MOUTH DAILYCiprofloxacin Hcl 250 mg aeywstIgbsrhapxfns110LVMTUwmlp vyxqk795Yxeu 2024 12:00am March 14, 2025 1:35pmLevothyroxine 88 mcg tabletActive0.ROUTE.PKLKJPT142 February 17, 2025 10:46amTAKE 1 TABLET BY MOUTH EVERY DAY IN THE MORNING ON AN EMPTY STOMACHComplies with drug therapyGemfibrozil 600 mg yyzaslIwirhd042TQIE DailyMay 2023 12:00amComplies with drug therapyRopinirole 1 mg tablet Rajuwshnartk1XSEQGbdiv470Tmd 2023 9:07amAugust 2023 9:34am Levothyroxine 75 mcg pupzowQkyyptotyqqx5CADKWLrgqeGcydtumg 2023 1:00am September 17, 2023 11:17amFreeTextSi tablet in the morning on an empty stomach Orally Once a day; Note: Source Status: Refill; Refills: 1; Qty: 90 Tablet; Provider: Mynor Meade ERopinirole 0.5 mg gfqgzuOttkqdbokptg0MRYVVBmbhx at bedtimeFebruary 2023 1:00amMarch 2023 10:24amFreeTextSi tablet 1 to 3 hours before bedtime Orally Once a day; Note: Source Status: Refill; Pr ovider: Mynor Meade EVitamin E (Dl, Acetate) 180 mg (400 unit) capsule Wwwaepdlbuzd7QYUHBAzvlqAeuvmxqp 2023 1:00amMarc2023 11:17am FreeTextSi capsule Orally Once a day; Note: Source Status: Taking; Provider: Mynor Meade ( )Potassium Gluconate 595 mg (99 mg) tablet Ilghccaikwid5UBONTBbokoCnjzkaqg 2023 1:00amMarch 2023 11:17am FreeTextSi tablet Orally Once a day; Note: Source Status: Taking; Provider: Mynor Meade ( )Ketoconazole 2 % bekjcBdpeljkyfqty3SPRVIPJKHZEDX DailyFebruary 2023 1:00amMarc2023 11:17amFreeTextSi application Externally Once a day; Note: Source Status: Taking; Provider: Mynor Meade ( )Estradiol 0.01 % (0.1 mg/gram) creamDiscontinuedVAGINALAs DirectedFebruary 2023 1:00amMarc2023 11:17amFreeTextSig: as directed Vaginal; Note: Source Status: Taking; Provider: Mynor Meade ( )Gemfibrozil 600 mg tabletDiscontinuedMGPOFebruary 2023 1:00am September 17, 2023 11:17amFreeTextSi tablet 30 minutes before morning and evening meals Orally ONCE A DAY; Note: Source Status: Taking; Provider: Mynor Meade ( )Amitriptyline 10 mg tttjpiLpujzykyaaox0NJHWVQtymd at bedtimeFebruary 2023 1:00amMarc2023 11:17amFreeTextSig: TAKE 1 TABLET BY MOUTH EVERYDAY AT BEDTIME; Note: Source Status: Taking; Refills: 1; Qt y: 90 Tablet; Provider: Mynor Meade ( )Magnesium Oxide 400 mg (241.3 mg magnesium) tabletDiscontinuedMGPOAs DirectedFebruary 2023 1:00am September 17, 2023 11:17amFreeTextSig: as directed Orally; Note: Source Status: Taking; Provider: Mynor Meade ( )Methenamine Hippurate 1 gram xgnossRvhulvkjnnlm5KHYYRGxcsxQffqnrco 2023 1:00amMarc2023 11:17am FreeTextSi tablet Orally ONCE A Day; Note: Source Status: Taking; Provider: Mynor Meade ( )Aspirin 81 mg tablet,delayed release (DR/EC) Voqtnrvqrnmq1CGQGCUgpyfDavqhtrl 2023 1:00amMarc2023 11:17am FreeTextSi tablet Orally Once a day; Note: Source Status: Taking; Provider: Mynor Meade ( )Amlodipine 5 mg hegmigGtappqwmfclm2YLFUKJphjn September 04, 2023 1:00amMarc2023 10:37amFreeTextSi tablet Orally Once a day; Note: Source Status: Taking; Refills: 3; Qty: 90 Tablet; Provider: Mynor Meade ELisinopril 20 mg dcduptLnrqgvcrxvct79XKGMLbqtsOfgyypzz 2023 1:00amMarc2023 11:17amFreeTextSig: TAKE 1 TABLET BY MOUTH EVERY DAY; Note: Source Status: Taking; Refills: 3; Qty: 90 Tablet; Provider: Mynor Meade ( )Azithromycin 250 mg tabletDiscontinuedTABPODailyFebruary 2023 1:00amMarch 2023 10:21amFreeTextSig: as directed Orally 2 tabs po today, then 1 tab daily x 4 more days; Note: Source Status: Start; Refills: 0; Provider: Mynor Meade EMultivitamin (Daily Multi-Vitamin) njksvsKhffko1XQBPB DailyFebruary 2023 1:00amComplies with drug therapyGlucosamine Sulfate (Glucosamine) 500 mg meuhfmLcttakvkoqkm194FBOVWcjasDqvidgau 2023 1:00am September 17, 2023 11:17amadminister with a mealCholecalciferol (Vitamin D3) 125 mcg (5,000 unit) sebzphaPlgfqs869WIXROSlyvhAgezqjmw 2023 1:00amComplies with drug therapyOmega 3-Uam-Kjk-Fish Oil (Fish Oil) 60-90-500 mg capsule Ckrgmxemoosk9RZXLYWddkxYecxhczr 2023 1:00amMay 2023 8:58amVit C,R-Gj-Ihsfn-Lutein-Zeaxan (Preservision Areds-2) 250-90-40-1 mg tablet,chewable Dtrtnq6DFDRTYhhml dailyFebruary 2023 1:00amComplies with drug therapy Cranberry 500 mg ghhnhizEauwyvackfna621VMTCQzyjh dailyFebruary 2023 1:00am September 17, 2023 11:17amadminister with mealsRopinirole 0.5 mg tabletDiscontinued 1MGPODaily at bedtimeMer[facility] 2023 10:22amMarch 2023 11:17amFreeTextSi tablet 1 to 3 hours before bedtime Orally Once a day; Note: Source Status: Refill; Provider: Mynor Longoriariptyline 10 mg oyporlKcisxsmqksbg46IUTW Daily at bedtimeMercy Health [facility] Hospital 2023 11:12amAugust 2023 10:09pmAspirin 81 mg tablet,delayed release (DR/EC)Zdzrjsutqhso36QWDRRjbzaEqdbl 2023 11:12amJuly 2024 6:26pmCranberry 500 mg murcezsXsvuhlhfqhbg594AKAYLimym dailyMercy Health [facility] Hospital 2023 11:13amSeptember 2023 9:14amEstradiol 0.01 % (0.1 mg/gram) cream ActiveVAGINALAs [facility] 2023 11:13amComplies with drug therapy Gemfibrozil 600 mg usdesfPokeoabfwhvc530KIBXVjmha dailyMercy Health [facility] Hospital 2023 11:13am November 25, 2023 8:56amGlucosamine Sulfate (Glucosamine) 500 mg tabletDiscontinued 500MGPODaGeorgetown Community Hospital 2023 11:14amJune 2024 3:36pmKetoconazole 2 % cream Klrayw5IBIWSSGBSOJQTMonhjWfljb 2023 11:14amComplies with drug therapy Levothyroxine 75 mcg ajeausAucinhfqtmrw04CFWZVRolwnFnkfe 2023 11:14amMay 2023 10:00amLisinopril 20 mg ggzhwuJdshhvueixkz42LAWQLcwdaAkxwc 2023 11:14amJanuary 2024 3:50pmMagnesium Oxide 400 mg (241.3 mg magnesium) efbqmyZscane631LXVRSexbiDkrcz 2023 11:15amComplies with drug therapy Methenamine Hippurate 1 gram lmrmygIvugar2DCQDRrzcoUmndx 2023 11:15am Complies with drug therapyPotassium Gluconate 595 mg (99 mg) kyvtrjWecenx845POUL DailyMar 2023 11:16amComplies with drug therapyRopinirole 0.5 mg tablet Ecakkvsanzjx7HXHGEkeqy at bedtimeMer[facility] Health [facility] 2023 11:16amMay 2023 8:58am Vitamin E (Dl, Acetate) 180 mg (400 unit) slqxunkGotvxcenubaq552KFKVAtmtoWpevt 2023 11:17amMay 2023 8:58amCranberry 500 mg qflvhbhXimujz916MOMHBmfk Lori 2023 9:10amComplies with drug therapyGlucosamine Sulfate (Glucosamine) 500 mg lzglirUmihyu8845ANAUVnvoxAmxs 2024 3:31pmComplies with drug therapyOmega 4-Ivz-Ooo-Fish Oil (Fish Oil) 1,000 mg (120 mg-180 mg) efoxypmMyoece5WUISBAzkrqUntoccosq 2023 12:00amComplies with drug therapy Amitriptyline 10 mg ccrezeRfjamugnzfkc09OFRWMkqlaOdlcjhfbz 2023 9:14amJune 2024 3:36pmAmlodipine 5 mg tabletDiscontinued7.5MGPODailySeptember 2023 9:15amSeptember 2023 9:27amLevothyroxine 88 mcg ipvvxsTdanqzoanlsy11 MCGPODailySeptember 2023 9:15amDecember 2023 1:39pmAmlodipine 5 mg danifkMedudvduhngc96MBWPJzcfdKvnnzagsx 2023 9:26amSeptember 2023 9:28amAmlodipine 10 mg goqlgfJkcvqfmiposn57AHTLIrwds539Lsfmakgrg 2023 12:00amOctober 2024 12:19pmAmitriptyline 10 mg rnbgrjSayqet19YIKKTwjxkXbxk 2024 3:31pmComplies with drug therapyCiprofloxacin Hcl 500 mg tablet Zcmgrtkgawxe559UWBBSoeqm047Csosje 2023 12:00amSeptember 2023 10:31am Oseltamivir (Tamiflu) 30 mg xrqbmfcPlevncjgokxw62YUJPCprce tcprr3675Xuhnxwwh 2024 1:00amJune 2024 3:31pmClopidogrel 75 mg ajnxqjGxuvkd74XYYGPgkyy 47587Hgeu 2024 12:00amLacunar cerebrovascular accident (CVA) Other cerebral infarction due to occlusion or stenosis of small arteryComplies with drug therapyCiprofloxacin Hcl 250 mg amepouCykzjkdxnvwp183ZBATXlnsx daily14 0September 2024 1:35pmOctober 2024 10:17amCiprofloxacin Hcl 250 mg eermttFtegonuwnjwf509DHVCRzftc uugkg643Qyvhtqt 2024 10:16amOctober 2024 10:10amDonepezil (Aricept) 5 mg lnyvgvLwwsgx0BHOZDpjtn828Cioship 2024 12:00amComplies with drug therapyLosartan-Hydrochlorothiazide 100-12.5 mg tablet Djoxab5XOSZTWcwjvKmutgzi 2024 12:00amComplies with drug therapyAmlodipine 10 mg fijgioJhjhxf31UKMTJetfw125Klkzpro 2024 12:19pmComplies with drug therapyRopinirole 1 mg ahsaziOuyaecwjfaoz0RCGWMeslbAarjo 2023 1:00amMay 2023 9:08amAmlodipine 5 mg tabletDiscontinued7.5MGPODailyMarch 2023 10:37amMarch 2023 10:43amFreeTextSi tablet Orally Once a day; Note: Source Status: Taking; Refills: 3; Qty: 90 Tablet; Provider: Mynor Quarles Amlodipine 5 mg tabletDiscontinued7.8WHARKtsjd0735Zwkbn 2023 10:38amMarch 2023 10:45amFreeTextSi tablet Orally Once a day; Note: Source Status: Taking; Refills: 3; Qty: 90 Tablet; Provider: Mynor Meade EAmlodipine 5 mg tabletDiscontinued7.5TCNAUyrov3936Lnklx 2023 10:45amMarch 2023 11:17am FreeTextSi tablet Orally Once a day; Note: Source Status: Taking; Refills: 3; Qty: 90 Tablet; Provider: Mynor Hopsonodipine 5 mg tabletDiscontinued7.5 MGPODailyMarch 2023 11:12amJune 2023 2:29pmSulfamethoxazole- Trimethoprim 800-160 mg pargpfEcsspxuqkdjr8IRDJZUechk xenba417Eyel 2024 12:00amJuly 2024 1:26pmRopinirole 2 mg xbvdnhSzajuo7QTGKNojqk697Vyqjipppx 2024 1:39pmComplies with drug therapyBuspirone 5 mg eikqeyKlojhm8WWRAEhxud qwkcv823Daidyammf 2024 12:00amComplies with drug therapy Immunizations Immunization Event Date Not Given Reason Dose Number Car Designer Lot Number Reason(s) Given Vaccine Information Statement (VIS) Detail Administration Location COVID-19 mRNA-1273 (Moderna) July 30, 2020 COVID-19 mRNA-1273 (Moderna)August 30OVID-19 mRNA-1273 (Moderna) May 08, 2021influenza, unspecified formulationSeptember 2015 influenza, unspecified formulationDecember 2016influenza, unspecified formulationNovember 2018influenza, unspecified formulationNovember 2019influenza, unspecified formulationOctober 2020influenza, unspecified formulationNovember neumococcal Polysacc. Vaccine, 23 valentOctober 2019Shingles (Zoster)August 22, 2019 Procedures Procedure Date Performed Status Urine Culture February 09, 2025 completed Urine Culture April 21, 2025 completed Relevant Diagnostic Tests and/or Laboratory Data Laboratory Results Test Collection Date/Time Result Date/Time Result Interpretation Reference Range Result Comment Performing Site Urine Color February 09, 2025 11:12am February 09, 2025 11:14a m yellow Absolute Basophils (Manual)March 09, 2025 9:50pmAugust 2024 9:50pm0.08 10 3/uL0.00-0.10HematocritAugust 2024 9:50pm39.5 %36.0-48.0Troponin I High SensitivityAugust 2024 9:50pmAugust 2024 9:50pm13.5 pg/mL4.0-51.3 CUT-OFF POINTS HAVE BEEN ESTABLISHED BASED ON THE FOURTHUNIVERSAL DEFINITION OF MYOCARDIAL INFARCTION. THE UPPERREFERENCE LIMIT (URL) OF TROPONIN, DEFINED THE 99THPERCENTILE OF cTnI DISTRIBUTION IN A REFERENCE POPULATION,HAS BEEN CONFIRMED THE DECISION THRESHOLD FOR MIDIAGNOSIS.99TH PERCENTILE = 51.4 PG/MLNOTE: HIGH-SENSITIVITY TROPONIN ASSAY IS NOT INTENDED TO BEUSED IN ISOLATION BUT SHOULD BE INTERPRETED IN CONJUNCTIONWITH OTHER DIAGNOSTIC AND CLINICAL INFORMATION.Anion GapAugust 2024 9:50pmAugust 2024 9:50pm 14.4Urine ColorSept2024 1:31pmSeptember 2024 1:33pmyellowUrine ColorSept2024 1:46pmSeptember 2024 1:48pmyellowUrine Color April 21, 2025 10:02amOctober 2024 10:04amyellowUrine AppearanceJuly 2024 11:12amJuly 2024 11:14amclearBasophils %March 09, 2025 9:50pmAugust 2024 9:50pm1.0 %0.2-2.0HemoglobinAu2024 9:50pm13.1 g/dL12.0-16.0Albumin/Globulin RatioAugust 2024 9:50pmAugust 2024 9:50pm1.0Urine AppearanceSept2024 1:31pmSeptember 2024 1:33pm verycloudyUrine AppearanceSept2024 1:46pmSeptember 2024 1:48pm clearUrine AppearanceOctober 2024 10:02amOctober 2024 10:04amcloudy Urine Specific GravityJuly 2024 11:12amJuly 2024 11:14am1.000 Eosinophils # (Manual)March 09, 2025 9:50pmAugust 2024 9:50pm0.16 10 3/uL0.00-0.70Mean Corpuscular HemoglobinAugust 2024 9:50pm30.0 pg26.7-34.0 AlbuminAugust 2024 9:50pmAugust 2024 9:50pm3.6 g/dL3.4-5.0Urine Specific GravitySeptember 2024 1:31pmSeptember 2024 1:33pm1.005Urine Specific GravitySeptember 2024 1:46pmSeptember 2024 1:48pm1.000Urine Specific GravityOctober 2024 10:02amOctober 2024 10:04am1.010Urine pHJuly 2024 11:12amJuly 2024 11:44yo3Kkmidwgzkhx %March 09, 2025 9:50pmAugust 2024 9:50pm2.0 %0.9-7.0Mean Corpuscular Hemoglobin Concent March 09, 2025 9:50pm33.2 g/dL29.9-35.2Alkaline PhosphataseAugust 2024 9:50pmAugust 2024 9:61do535 U/Q84-704[place] pHSeptember 2024 1:31pm March 14, 2025 1:59ce6Hsxml pHSeptember 2024 1:46pmSeptember 2024 1:31iw5Slnrw pHOctober 2024 10:02amOctober 2024 10:04am6.5Urine Leukocyte EsteraseJuly 2024 11:12amJuly 2024 11:14amnegative Lymphocytes # (Manual)March 09, 2025 9:50pmAugust 2024 9:50pm0.49 10 3/uLBelow low normal1.20-3.80Mean Corpuscular VolumeAugust 2024 9:50pm90.6 fL81.0-99.0Alanine Aminotransferase (ALT/SGPT)March 09, 2025 9:50pmAugust 2024 9:50pm21 U/H84-52Cdehc Leukocyte EsteraseSeptember 2024 1:31pm March 14, 2025 1:33pm+++Urine Leukocyte EsteraseSeptember 2024 1:46pm March 21, 2025 1:48pmnegativeUrine Leukocyte EsteraseOctober 2024 10:02amOctober 2024 10:04am++Urine NitriteJuly 2024 11:12amJuly 2024 11:14amNegativeLymphocytes %March 09, 2025 9:50pmAugust 2024 9:50pm6.0 %Below low mwokpa83.5-60.0Mean Platelet VolumeAugust 2024 9:50pm 11.1 fL9.5-13.5Aspartate Amino Transf (AST/SGOT)March 09, 2025 9:50pmAugust 2024 9:50pm18 U/O16-58Kmypo NitriteSeptember 2024 1:31pmSeptember 2024 1:33pmPositiveUrine NitriteSeptember 2024 1:46pmSeptember 2024 1:48pmNegativeUrine NitriteOctober 2024 10:02amOctober 2024 10:04amPositiveUrine ProteinJuly 2024 11:12amJuly 2024 11:14am negativeMonocytes # (Manual)March 09, 2025 9:50pmAugust 2024 9:50pm0.41 10 3/uL0.30-0.80Platelet CountAugust 2024 9:91dv493 10 3/vQ914-665 BUN/Creatinine RatioAugust 2024 9:50pmAugust 2024 9:50pm25.8Urine ProteinSeptember 2024 1:31pmSeptember 2024 1:33pmnegativeUrine Protein March 21, 2025 1:46pmSeptember 2024 1:48pmnegativeUrine ProteinOctober 2024 10:02amOctober 2024 10:04am+Urine Glucose (UA)February 09, 2025 11:12amJuly 2024 11:14amnegativeMonocytes %March 09, 2025 9:50pmAugust 2024 9:50pm5.0 %1.7-12.0Red Blood CountAugust 2024 9:50pm4.36 10 6/uL4.20-5.40Blood Urea NitrogenAugust 2024 9:50pmAugust 2024 9:50pm 42.0 mg/dLAbove high normal7.0-18.0Urine Glucose (UA)March 14, 2025 1:31pm March 14, 2025 1:33pmnegativeUrine Glucose (UA)March 21, 2025 1:46pm March 21, 2025 1:48pmnegativeUrine Glucose (UA)April 21, 2025 10:02am April 21, 2025 10:04amnegativeUrine KetonesJuly 2024 11:12amJuly 2024 11:14amnegativeSegmented Neutrophils # (Manual)March 09, 2025 9:50pm March 09, 2025 9:50pm7.05 10 3/uLAbove high normal1.4-6.5Red Cell Distribution WidthAut 2024 9:50pm13.2 %11.0-15.0Calcium LevelAugust 2024 9:50pmAugust 2024 9:50pm8.8 mg/dL8.5-10.1Urine KetonesSeptember 2024 1:31pmSeptember 2024 1:33pmnegativeUrine KetonesSeptember 2024 1:46pmSeptember 2024 1:48pmnegativeUrine KetonesOctober 2024 10:02amOctober 2024 10:04amnegativeUrine UrobilinogenJuly 2024 11:12amJuly 2024 11:14am0.2Segmented NeutrophilsAugust 2024 9:50pm March 09, 2025 9:50pm86.0Above high iupzwn76.0-75.0Corrected White Blood CountAugust 2024 9:50pm8.2 10 3/uL4.0-11.0Chloride LevelAugust 2024 9:50pmAugust 2024 9:84zi984 mmol/E19-126Miiqa UrobilinogenSeptember 2024 1:31pmSeptember 2024 1:33pm0.2Urine UrobilinogenSeptember 2024 1:46pmSeptember 2024 1:48pm0.2Urine UrobilinogenOctober 2024 10:02am April 21, 2025 10:04am0.2Urine BilirubinJuly 2024 11:12amJuly 2024 11:14amnegativeCarbon Dioxide LevelAugust 2024 9:50pmAugust 2024 9:50pm25.5 mmol/L21.0-32.0Urine BilirubinSeptember 2024 1:31pm March 14, 2025 1:33pmnegativeUrine BilirubinSeptember 2024 1:46pm March 21, 2025 1:48pmnegativeUrine BilirubinOctober 2024 10:02am April 21, 2025 10:04amnegativeUrine Occult BloodJuly 2024 11:12amJuly 2024 11:14amnegativeCreatinineAugust 2024 9:50pmAugust 2024 9:50pm1.63 mg/dLAbove high normal0.55-1.02Urine Occult BloodSeptember 2024 1:31pmSeptember 2024 1:33pm+Urine Occult BloodSeptember 2024 1:46pm March 21, 2025 1:48pmnegativeUrine Occult BloodOctober 2024 10:02am April 21, 2025 10:00wd6-69Lxypndxde GFR ()March 09, 2025 9:50pmAugust 2024 9:89rt97Vomtb low normal>=60 mL/min/1.73m 2Estimated GFR (Non- AmericanAugus2024 9:50pmAugust 2024 9:09ah71Kkomu low normal>=60 mL/min/1.73m 2GlobulinAugust 2024 9:50pmAugust 2024 9:50pm3.5 g/dLGlucose LevelAugust 2024 9:50pmAugust 2024 9:34ly481 mg/dLAbove high evtzyi33-698Dndoyxkjx LevelAugust 2024 9:50pmAugust 2024 9:50pm3.9 mmol/L3.5-5.1Sodium LevelAugust 2024 9:50pmAugust 2024 9:28bj835 mmol/T805-656Qhgco BilirubinAugust 2024 9:50pmAugust 2024 9:50pm0.5 mg/dL0.2-1.0Total ProteinAugust 2024 9:50pmAugust 2024 9:50pm7.1 g/dL6.4-8.2 Microbiology Results Procedure Source Result Collection Date/Time Result Date/Time Result Comment Performing Site Urine Culture Urine 2 Days February 09, 2025 11:15am Au yissel 2024 9:44am [facility] [id number] [address] [facility] [address]Pwfdy CultureUrineKlebsiella pneumoniaeOctober 2024 10:22amOctober 2024 8:11am[facility] [id number] [address] [facility] [address] Vital Signs Vital Reading Result Reference Range Collection Date/Time Height 60 [in_i] February 07, 2025 10:47xmYxdqki80.03 kgJuly 2024 10:35amHeart Rate84 /min 60-100July 2024 10:35amRespiratory rate16 /nin44-35Cxmn 2024 10:35am Oxygen saturation by Pulse qjkvejuq82 %95-100July 2024 10:35amBP Systolic 140 mm[Hg]100-140July 2024 10:35amBP Ndqhfnfub36 mm[Hg]60-100July 2024 10:35amBMI (Body Mass Index)29.2 kg/m2July 2024 10:10wgVffwsl79 [in_i]March 21, 2025 1:44cmFyibim66.58 kgSeptember 2024 1:04pmHeart Rate85 /wne37-224Wkuzvfoar 2024 1:04pmBP Ulrclkam787 mm[Hg]100-140September 2024 1:04pmBP Psqjpshlb73 mm[Hg]60-100September 2024 1:04pmBMI (Body Mass Index)29.0 kg/y7Obntussln 2024 1:04zhPzynqu90 [in_i]May 02, 2025 10:97yfJihikr00.94 kgOctober 2024 10:08amHeart Rate76 /nwq73-859Etlnvqy 2024 10:15amBP Temdrfdq349 mm[Hg]100-140October 2024 10:15amBP Dnjnxntyb95 mm[Hg]60-100October 2024 10:15amBMI (Body Mass Index)29.7 kg/b6Ningdrs 2024 10:68ahOjzplq98 [in_i]May 08, 2025 12:01pmWeight 68.26 kgOctober 2024 12:01pmHeart Rate78 /bkh34-222Imhvlfm 2024 12:01pmBP Kdhffvgo699 mm[Hg]100-140October 2024 12:25pmBP Slpajqhqq41 mm[Hg]60-100October 2024 12:25pmBMI (Body Mass Index)29.4 kg/z7Bhcvuqo 2024 12:01pm Advance Directives Advance Directive Response Recorded Date/ Time Advance Directives No June 11:52am Insurance Providers Guarantor Ella Urena Address [address] [place] [id number] Info.Home Phone: Coverage Status Update:2024 Payer Group Member ID Coverage Type Subscriber Relationship to Subscriber Effective Date Expiration Date Medicare Id: [id number] C Ruffing Id: [id number] [place] [address] Home Phone: Email: [email or web address] Encounters Encounter Location(s) Arrival/Admit Date Discharge/Departure Date Discharge/Departure Disposition Provider(s) Departed Physician/ Provider Office Visit -[facility] February 07, 2025 10:29am February 07, 2025 11:16am Discharged to home care or self care (routine discharge) Inessa Haynes APRN-BRINE PURIFIER-C Departed Physician/ Provider Office Visit -[facility] February 09, 2025 11:06am February 09, 2025 11:17am Discharged to home care or self care (routine discharge) Halina Lowe MD Departed Referred -[facility] February 09, 2025 11:15am February 09, 2025 11:16am Discharged to home care or self care (routine discharge) Halina Lowe MD Non-patient / Non-visit -[facility] ugust 2024 9:50pm ULISSES Quaneparted Physician/Provider Office Visit-[facility] 20[facility] 1:04pmSeptember 2024 1:48pmDischarged to home care or self care (routine discharge)Halina Lowe MDNon-patient / Non-visit- [facility] 2024 11:31amCatheraldo Loaiza CMADeparted Physician/Provider Office Visit-[facility] 2024 1:01pmSeptember 2024 1:48pmDischarged to home care or self care (routine discharge)ULISSES Quaneparted Physician[facility] 1:29pmOctober 2024 2:06pmDischarged to home care or self care (routine discharge)Clarisse Conti PhDDeparted Physician/Provider Office Visit-[facility] 2024 12:12pmOctober 2024 1:59pmDischarged to home care or self care (routine discharge)Clarisse Conti PhDDeparted Physician/Provider [facility] 9:59amOctober 2024 10:04am Discharged to home care or self care (routine discharge)Shonna Villeda APRN CNPDeparted Referred-[facility] 10:22amOctober 2024 10:23amDischarged to home care or self care (routine discharge)Halina oLwe , MDDeparted Physician/Provider Office Visit-[facility] May 02, 2025 9:47amOctober 2024 10:34amDischarged to home care or self care (routine discharge)Halina Lowe , MDDeparted Physician/Provider [facility] 11:44amOctober 2024 12:27pmDischarged to home care or self care (routine discharge)Halina Lowe MD Recent Diagnosis Onset Date Admit Date Lacunar infarction Unknown February 07 10:29am Mild late onset Alzheimer's dementia Unknown February 07, 2025 10:29am Dysuria Unknown February 09, 2025 11:06am UTI (urinary tract infection) Unknown Se pt2024 1:04pm Anxiety Unknown March 21, 025 1:01pm HTN (hypertension) Unknown March 1:01pm Medicare annual wellness visit, subsequent Unkno wn March 21, 2025 1:01pm Memory changes Unknown March 21, 025 1:01pm Restless leg syndrome Unknown March 21, 2025 1:01pm Mild late onset Alzheimer's dementia Unknown March 21, 2025 1:01pm Depression with anxiety Unknown April 18, 2025 1:29pm Memory changes Unknown April 18 1:29pm Word finding difficulty Unknown April 18, 2025 1:29pm Lacunar infarction Unknown April 18, 2025 1:29pm Memory loss Unknown April 19 12:12pm Mild neurocognitive disorder Unknown Apr 12:12pm Moderate anxiety Unknown April 19 12:12pm Moderate recurrent major depression Unknown April 19, 2025 12:12pm Word finding difficulty Unknown April 19, 2025 12:12pm Lacunar infarction Unknown April 19, 2025 12:12pm UTI (urinary tract infection) Unknown Oc tob2024 9:59am Menopause Unknown May 02 9:47am Mild neurocognitive disorder Unknown Oct vahid2024 9:47am Moderate recurrent major depression Unknown May 02, 2025 9:47am Assessments Diagnosis Onset Date Resolution Status Admit Date Lacunar infarction chronicJuly 2024 10:29amMild late onset Alzheimer's dementiachronicJuly 2024 10:29amDysuriaacuteJuly 2024 11:06amUTI (urinary tract infection)acuteSeptember 2024 1:04pmAnxietyacuteSeptember 2024 1:01pm HTN (hypertension)acuteSeptember 2024 1:01pmMedicare annual wellness visit, subsequentacuteSeptember 2024 1:01pmMemory changesacuteSeptember 2024 1:01pmRestless leg syndromeacuteSeptember 2024 1:01pmMild late onset Alzheimer's dementiachronicSeptember 2024 1:01pmDepression with anxiety acuteOctober 2024 1:29pmMemory changesacuteOctober 2024 1:29pmWord finding difficultyacuteOctober 2024 1:29pmLacunar infarctionchronicOctober 2024 1:29pmMemory lossacuteOctober 2024 12:12pmMild neurocognitive disorderacuteOctober 2024 12:12pmModerate anxietyacuteOctober 2024 12:12pmModerate recurrent major depressionacuteOctober 2024 12:12pmWord finding difficultyacuteOctober 2024 12:12pmLacunar infarctionchronicOctober 2024 12:12pmUTI (urinary tract infection)acuteOctober 2024 9:59am MenopauseacuteOctober 2024 9:47amMild neurocognitive disorderacuteOctober 2024 9:47amModerate recurrent major depressionacuteOctober 2024 9:47am Plan of Treatment Author Inessa Haynes [facility] CenterredJuly 2024 6:26pmMsNicole Urena is an 84-year-old female who reports memory difficulty with insidious onset. She primarily reports difficulty with word-finding and recent recall. She admits to mild anxiety which could contribute to a pseudodementia but denies feelings of depression. She denies any significant signs or symptoms of obstructive sleep apnea. She remains independent with ADLs, and memory does not seem to cause her any significant functional disability at this time. MOCA score was 21/30. Vitamin B12 and TSH on 08/17/2024 were within normal limits. MRI of the brain in 12/29/2024 identified age-related atrophy, chronic microvascular ischemic changes, and multiple remote lacunar infarcts. Certainly, the MRI findings could be contributory to her cognitive impairment. I believe the current presentation is most consistent with mild cognitive impairment (MCI) versus a mild Alzheimer's dementia. PLAN: - I reviewed MRI of the brain and lab results with the patient - We discussed possible benefits versus adverse effects of cholinesterase inhibitors in detail today. Following discussion, the patient states she does not currently wish to start one of these - Attempt to ensure adequate sleep (at least 7-8 hours per night), healthy diet such as the Mediterranean diet, continued learning, and regular physical activity as tolerated - Compensatory memory tools discussed - I recommended follow-up in approximately 4 months for serial evaluation of cognitive function; sooner if needed MRI of the brain on 12/29/2024 identified remote lacunar infarcts in the deep sanches nuclei and periventricular white matter and also 1 in the left cerebellar hemisphere. It also mentioned suspicion for narrowing of the middle cerebral arteries. The patient denies history of DM or tobacco use does have multiple risk factors for small vessel disease/stroke including advanced age, hypertension, and hyperlipidemia. She states she has been taking a baby aspirin daily for decades. Will transition her to Plavix given the history of multiple strokes and intracranial atherosclerosis. PLAN: - I reviewed MRI of the brain results with the patient. The patient states she was unaware of any personal history of stroke prior to today - Stop aspirin - Start clopidogrel 75 mg by mouth once daily for secondary stroke prevention. I counseled the patient on possible adverse effects of this medication in detail (including bleeding which could be life-threatening). She verbalized understanding and wishes to proceed - Ideally, the patient would be on a statin. However, she has a documented history of allergy to these - I advised the patient to follow up very closely with her primary care provider for close monitoring and management of blood pressure, cholesterol levels, and blood glucose to reduce the risk of future stroke. Goal LDL < 70 - I recommended obtaining carotid ultrasound and labs (hemoglobin A1c, lipid panel). The patient states she had these completed just yesterday via [facility]. I will ask staff to request results for review - I counseled the patient on signs and symptoms of stroke and advised her to seek immediate evaluation in the emergency department should she develop any of these in the future - The patient understands to seek immediate evaluation in the emergency department should she fall and hit her head while taking clopidogrel, as this could lead to intracranial bleeding Diagnoses and treatment plan discussed. The patient verbalizes understanding and is agreeable to the plan. All questions answered. Author Shonna Villeda [facility] 2024 10:41am Reviewed results of urine dipstick with patient, and given both symptoms and physical exam, explained that a urinary tract infection is likely. The patient is encouraged to increased fluid intake, take antibiotics as prescribed, and to finish the entire course of antibiotics. Urine culture to be completed and will call with results in 3- 5 days. Patient instructed to follow up if symptoms are not improving within the next 5-7 days. Signs and symptoms of worsening symptoms (including pyelonephritis, and urosepsis) are reviewed with the patient, and the patient is instructed to go to the ER if this would occur. Author Halina Lowe [facility] 2024 12:52pmDEXA faxed and order given to pt. Agrees to start aricept at lowest dose. Will also review w Neurology next month. States her mood is presently good on present rx's. She is unsure if she is still taking buspar because her daughter has her med list. Does not endorse symptoms of anxiety or depression today. Author Halina Lowe [facility] CenterAuthoredJuly 2024 1:45pmUA normal. Culture sent. Author Halina [facility]pt[facility] 2024 6:06pmPt agrees to referral to Neuropsychiatry for further assessment Followup w Neurology as scheduled. Continue present medications. Increase dose of requip. Added buspar as she had a hx of hives w other SSRIs and she has contraindication to SNRIs w her renal function. Personalized health advice was given to the beneficiary to health education of preventative counseling services or programs aimed at reducing identified risk factors and improving self-management or community-based lifestyle interventions to reduce health risks and promote self-management and wellness, including physical activity and nutrition. stable continue Lisinopril. Future Tests Future scheduled test information is unavailable Pending Tests Test Name Ordered Date Scheduled Date XR dexa axial skeleton May 02, 2025 10:30a m Future Visits Future appointment information is unavailable Future Procedures Future procedure information is unavailable Future Medications Future medication information is unavailable Patient Instructions Patient instructions are unavailable
--- OUTSIDE RECORDS SUMMARY | 2025-05-09 09:32 | XMS_ITS | Encounter Summary ---
Author Organization [facility] Address [address], [address] [place] [address] Care Team Providers Care Manager Port Name Role Phone Halina Lowe MD Primary Care Provider [phone] Encounter Details DateTypeDepartmentCare Team (Latest Contact Info)Nzqikpycvry70/24/2025Travel Social History Tobacco UseTypesPacks/DayYears UsedDateSmoking Tobacco: NeverAlcohol UseStandard Drinks/WeekCommentsNever0 (1 standard drink = 0.6 oz pure alcohol)AUDIT-CAnswer Date RecordedFrequency of Alcohol YumkcwakgzoAthmq02/25/2019Average Number of DrinksNot on file10/04/2018Frequency of Binge [...] were you homeless or living in a half-way (including now)?No05/06/2025UDIT-CAnswerDate RecordedQ1: How often do you [...] Safety Domain Source: IP Abuse ScreeningAnswerDate RecordedPhysical tdneoNnmnff43/25/2025Verbal abuseDenies 05/06/2025Emotional yahfiYyyxxm98/25/2025Financial xnoonEazmhs27/25/2025Sexual uvwkbOsmuxf31/25/2025CommentsUnknownSex and Gender InformationValueDate RecordedSex Assigned at BirthNot on fileLegal JxxUbjfos87/12/2013 6:51 AM EST Gender IdentityNot on fileSexual OrientationNot on filedocumented as of this encounter Plan of Treatment Not on file documented as of this encounter Visit Diagnoses Not on filedocumented in this encounter Care Teams Team MemberRelationshipSpecialtyStart DateEnd Date Halina Lowe MD PCP - GeneralFamily Medicine10/04/18documented as of this encounter
--- OUTSIDE RECORDS SUMMARY | 2025-05-09 09:32 | XMS_ITS | Continuity of Care Document ---
Author Organization [facility] Address [address] [place] [address] Phone Care Team Providers Care Bank Officer Name Role Phone Halina Lowe MD Primary Care Provider Inessa Haynes-C Attending Provider + Halina Lowe MD Attending Provider Dorota Loaiza CMA Attending Provider Unavaila Thomas Hancock PhD Attending Provider Shonna Villeda APRN Attending Provider [phone] Care Teams Visit Care Team Team Status: Inactive Member Role/Relationship Status Dates Halina Lowe MD Primary Care Provider Active Start: February 07, 2025 End: February 07, 2025Kati Carbajal ProviderActiveStart: February 07, 2025 End: February 07, [...] Start: March 21, 2025 End: March 21, 2025Halie Quanending ProviderActiveStart: March 21, 2025 End: March 21, [...] 2025 End: April 21, 2025Shonna Villeda APRN [place] LO DRIVER-CAttending ProviderActive Start: April 21, 2025 End: April 21, 2025 Patient Care Team Team Status: Inactive Member Role/Relationship Status Dates Halina Lowe MD Attending Provider Active St art: April 21, 2025 End: April 21, 2025 Chief Complaint and Reason for Visit Chief Complaint Admit Date Follow up February 07, 2025 10:2 9am UA, recheck February 09, 2025 11:0 6am R30.0 February 09, 2025 11:1 5am UA:Burning/Cloudy March 14, 2025 1:04pm Amb Documentation March 16, 2025 11:31am Wellness/TBH ER f/u March 21, 2025 1:01pm APPROVED AUTH #[id number]; ASSESSMENT Oc tober 2024 1:29pm APPROVED AUTH #[id number]; TESTING Octob er 2024 12:12pm UA:Frequency/Burning April 21, 2025 9:59am Reason for Visit Admit Date Lacunar infarction [...] 2025 12 :12pm Moderate recurrent major depression Octo marlyn 2024 12:12pm Word finding difficulty April 19 12:12pm Lacunar infarction April 19, 2025 12 :12pm UTI (urinary tract infection) April 212024 9:59am Allergies, Adverse Reactions, Alerts Allergen Type Severity Reaction Last Updated Verified Status fesoterodine Allergy Unknown Hives March 1:08pm Yes Active fluoxetine Allergy Unknown Hives March 21, 2025 1:08pm Yes Active nitrofurantoin Allergy Unknown Comment:Sever e Diarrhea, diarrhea March 21, 2025 1:08pm Yes Active penicillin G benzathine Allergy Unknown Hives March 21, 2025 1:08pm Yes Active Penicillins Allergy Unknown Hives March 1:08pm Yes Active Gnvoztk-WUW-XqH Reductase Inhibitor Allergy Unknown Hives March 1:08pm Yes Active Antihistamine & Nasal Deconges Allergy [...] breast cancer September 03 7:20pm Unknown Active Hyperglyceridemia September 04, 2023 10:11am Unknown Active [...] 2025 9:22pm Unknown Active Mild neurocognitive disorder October 9th, 2025 9:21pm Unknown Active Hypothyroidism September 04, [...] Adherence Levothyroxine 75 mcg tablet Discontinued 0 .ROUTE.GLBRFRA478Fmj 2023 10:00amJuly 2023 8:33amTAKE 1 TABLET BY MOUTH EVERY MORNING ON AN EMPTY STOMACHAmlodipine 5 mg tabletDiscontinued0.ROUTE .DTWTPFP1916Uvan 2023 2:29pmAugust 2023 5:46pmTAKE 1 AND 1/2 TABLETS BY MOUTH ONCE A DAYLevothyroxine 75 mcg tabletDiscontinued0.ROUTE.MCEJIPA819Sdau 1st, 2024 8:33amSept2023 11:20pmTAKE 1 TABLET BY MOUTH EVERY MORNING ON AN EMPTY STOMACHRopinirole 1 mg fvnuefIoblsgcaxjtx8GHKXXqmug838Hatfly 2023 9:34amDecember 2023 10:01amAmlodipine 5 mg tabletDiscontinued0.ROUTE .WAJRGTQ5904Dugygp 2023 5:46pmSeptember 2023 9:16amTAKE 1 AND 1/2 TABLETS BY MOUTH ONCE A DAYAmitriptyline 10 mg tabletDiscontinued0.ROUTE.COMPLEX 901Augu2023 10:09pmSeptember 2023 9:16amTAKE 1 TABLET BY MOUTH EVERYDAY AT BEDTIMELevothyroxine 88 mcg tabletDiscontinued0.ROUTE.UMNZFNW886 March 184 11:20pmSeptember 2023 9:16amTAKE 1 TABLET BY MOUTH EVERY MORNING ON AN EMPTY STOMACHLevothyroxine 88 mcg tabletDiscontinued0.ROUTE .BHTBUQS728Ztgyachf2023 1:39pmFebruary 2024 4:15pmTAKE 1 TABLET BY MOUTH EVERY DAY IN THE MORNING ON AN EMPTY STOMACHRopinirole 1 mg tablet Discontinued0.ROUTE.NNLZCDI856Bdfghcvd2023 10:01amJuly 2024 4:30pm TAKE 1 TABLET BY MOUTH DAILYLisinopril 20 mg tabletActive0.ROUTE.RKMZHBS560 August 01, 2024 3:50pmTAKE 1 TABLET BY MOUTH EVERY DAYUnknownLevothyroxine 88 mcg tabletDiscontinued0.ROUTE.LVONIYT828Ntsgekbj2024 4:15pmAugust 2024 10:46amTAKE 1 TABLET BY MOUTH EVERY DAY IN THE MORNING ON AN EMPTY STOMACH Ropinirole 1 mg tabletDiscontinued0.ROUTE.MMGHNBX753Xakx2024 4:30pm March 21, 2025 1:39pmTAKE 1 TABLET BY MOUTH DAILYCiprofloxacin Hcl 250 mg idywqdZpalgjococsd327CQHENkmqb qjtkd576Jrol 2024 12:00amSeptember 2024 1:35pmLevothyroxine 88 mcg tabletActive0.ROUTE.MUIWTFN320Pboffa 8th, 2025 10:46amTAKE 1 TABLET BY MOUTH EVERY DAY IN THE MORNING ON AN EMPTY STOMACH UnknownGemfibrozil 600 mg jwanedDjzmwh038FUIDRiupeQaj 2023 12:00amUnknown Ropinirole 1 mg lrfujuKfmpailgovjy8OSZQQiolx199Ygl 2023 9:07amAugust 2023 9:34amLevothyroxine 75 mcg xgvojcLdttmyrzdgbu3AKCWTWhaqqDyvfwhlv 2023 1:00amMarch 2023 11:17amFreeTextSi tablet in the morning on an empty stomach Orally Once a day; Note: Source Status: Refill; Refills: 1; Qty: 90 Tablet; Provider: Mynor Meade ERopinirole 0.5 mg wbdglnKvckjiqvoytk5ELJNKQuvpr at bedtimeFebruary 2023 1:00amMarc2023 10:24amFreeTextSi tablet 1 to 3 hours before bedtime Orally Once a day; Note: Source Status: Refill; Pr brittanyer: Mynor Meade EVitamin E (Dl, Acetate) 180 mg (400 unit) capsule Gmgteeyyrlfu5RJZNNJukifJxqsdwzi 2023 1:00amMarc2023 11:17am FreeTextSi capsule Orally Once a day; Note: Source Status: Taking; Provider: Mynor Meade ( )Potassium Gluconate 595 mg (99 mg) tablet Bqwpoqaqdyag4JJBCUJcgopEwusghfa 2023 1:00amMarc2023 11:17am FreeTextSi tablet Orally Once a day; Note: Source Status: Taking; Provider: Mynor Meade ( )Ketoconazole 2 % dfdbmTerqufsuxavd6HJCSDQEGXKNUG DailyFebruary 2023 1:00amMarc2023 11:17amFreeTextSi application Externally Once [...] Provider: Mynor Meade ( )Amitriptyline 10 mg edbiuvHnjxawuedpci1LZZUAVybpg at bedtimeFebruary 2023 1:00amMarc2023 11:17amFreeTextSig: TAKE 1 TABLET BY MOUTH EVERYDAY AT BEDTIME; Note: Source Status: Taking; Refills: 1; Qt y: 90 Tablet; Provider: Mynor Meade ( )Magnesium Oxide 400 mg (241.3 mg magnesium) tabletDiscontinuedMGPOAs DirectedFebruary 2023 1:00am September 17, 2023 11:17amFreeTextSig: as directed Orally; Note: Source Status: Taking; Provider: Mynor Meade ( )Methenamine Hippurate 1 gram lojutyJizmoptnbipj3DEXTGZxujyVjaltwaq 2023 1:00amMarc2023 11:17am FreeTextSi tablet Orally ONCE A Day; Note: Source Status: Taking; Provider: Mynor Meade ( )Aspirin 81 mg tablet,delayed release (DR/EC) Htszlvqotksy9FQJAGYerioSqzywjpr 2023 1:00amMarc2023 11:17am FreeTextSi tablet Orally Once a day; Note: Source Status: Taking; Provider: Mynor Meade ( )Amlodipine 5 mg unilkbQphguxrpzsor7KWQSEMqsub September 04, 2023 1:00amMarc2023 10:37amFreeTextSi tablet Orally Once a day; Note: Source Status: Taking; Refills: 3; Qty: 90 Tablet; Provider: Mynor Meade ELisinopril 20 mg jmimjiNsojkvguklme06JQLVQtbjxWwcfvhvk 2023 1:00amMarc2023 11:17amFreeTextSig: TAKE 1 TABLET BY MOUTH EVERY DAY; Note: Source Status: Taking; Refills: 3; Qty: 90 Tablet; Provider: Mynor Meade ( )Azithromycin 250 mg tabletDiscontinuedTABPODailyFebruary 2023 1:00amMarc2023 10:21amFreeTextSig: as directed Orally 2 tabs po today, then 1 tab daily x 4 more days; Note: Source Status: Start; Refills: 0; Provider: Mynor Meade EMultivitamin (Daily Multi-Vitamin) ycssneEacjuy2GABQD DailyFebruary 2023 1:00amUnknownGlucosamine Sulfate (Glucosamine) 500 mg dfykusBfzigsbwmkjf475KHELPdobdSepjobtv 2023 1:00amMarc 2023 11:17am administer with a mealCholecalciferol (Vitamin D3) 125 mcg (5,000 unit) capsule Ofzuhy394KHHFPAeibvUhhljajl 2023 1:00amUnknownOmega 6-Lbs-Ebz-Fish Oil (Fish Oil) 60-90-500 mg olrrpqcGwkbeegoprpg4PTLXXOflxgQotvzhzx 2023 1:00am November 25, 2023 8:58amVit C,M-Rq-Isuru-Lutein-Zeaxan (Preservision Areds-2) 250-90-40-1 mg tablet,hhmjyzgxRslxyo1NCWVFDdklf dailybruary 2023 1:00am UnknownCranberry 500 mg rabysqlXihrxrpgdxuo080HXYZPxzlz dailyArizona Spine And [facility] Hospitaluary 2023 1:00amMarc 2023 11:17amadminister with mealsRopinirole 0.5 mg tablet Fxzakyfvgoka5MAQZPjhpa at bedtimeBlanchard [facility] System 2023 10:22amMarc 2023 11:17am FreeTextSi tablet 1 to 3 hours before bedtime Orally Once a day; Note: Source Status: Refill; Provider: Mynor Meade EAmitriptyline 10 mg tablet Tcbjspolscwx74QWXKKgoyd at bedtimeBlanchard Valley Health System 2023 11:12amAugust 2023 10:09pmAspirin 81 mg tablet,delayed release (DR/EC)Vvqpeqdrzyiq42HZKBKcvprBuecf 2023 11:12amJuly 2024 6:26pmCranberry 500 mg oineznpEpxvlympatmk980TN POTwice dailyBlanchard Valley Health System 2023 11:13amSeptember 2023 9:14amEstradiol 0.01 % (0.1 mg/gram) creamActiveVAGINALAs [facility] 2023 11:13amUnknown Gemfibrozil 600 mg iunxexXhfutplpknur955VREDXyfzb dailyBlanchard Valley Health System 2023 11:13am November 25, 2023 8:56amGlucosamine Sulfate (Glucosamine) 500 mg tabletDiscontinued 500MGPODailyBlanchard Valley Health System 2023 11:14amJune 2024 3:36pmKetoconazole 2 % cream Hjexum8OTBBFXPODEGAXSapwoKrcev 2023 11:14amUnknownLevothyroxine 75 mcg dsyyebGqhdbpjywqdd34AROHCQqsucXxpbn 2023 11:14amMay 2023 10:00am Lisinopril 20 mg rzmxmnVhdiqmdbxapy07UVGAFkykeBwmuk 2023 11:14amJanuary 2024 3:50pmMagnesium Oxide 400 mg (241.3 mg magnesium) fhudzhFpsqsu156WRTM DailyBlanchard Valley Health System 2023 11:15amUnknownMethenamine Hippurate 1 gram adgfxdTedwne4NN PODailyMarch 2023 11:15amUnknownPotassium Gluconate 595 mg (99 mg) tablet Zaaerp236FTQXTitxvVrdby 2023 11:16amUnknownRopinirole 0.5 mg tablet Fxgzllqxrrtu5VVBSJtmwn at bedtimeBlanchard Valley Health System 2023 11:16amMay 2023 8:58am Vitamin E (Dl, Acetate) 180 mg (400 unit) npfdofbGvfcswehtdcn377LLJTXhuzyJcxov 2023 11:17amMay 2023 8:58amCranberry 500 mg isatfrcBvroqk615FINDAahf March 29, 2024 9:10amUnknownGlucosamine Sulfate (Glucosamine) 500 mg cvxdglMnrnkh3536JPTYXtkndRcll 2024 3:31pmUnknownOmega 8-Ney-Luq-Fish Oil (Fish Oil) 1,000 mg (120 mg-180 mg) jsittyqUacezx7CCLDHIprgoJgpqqdcdx 2023 12:00amUnknownAmitriptyline 10 mg clvjqyMjaswsjuocyg70GPQQZiqrhKjrxpsmvd 17th, 2024 9:14amJune 2024 3:36pmAmlodipine 5 mg tabletDiscontinued7.5MGPODaily March 29, 2024 9:15amSeptember 2023 9:27amLevothyroxine 88 mcg vetlwoVdjhxexhbyro29OZBCRTihuhXlgxwvplq 2023 9:15amDecember 2023 1:39pmAmlodipine 5 mg mdnkixVrvrdoyhzohw52MPKGNjifsIdmqdzqit 2023 9:26am March 29, 2024 9:28amAmlodipine 10 mg ivcfdoQdmcvt28POAQEjnkd893Jzngdhesl 2023 12:00amUnknownAmitriptyline 10 mg jtyapuPbypst25LEKUOrqpvEwgf 2024 3:31pmUnknownCiprofloxacin Hcl 500 mg tibytpAemnnkzrzneg861XZBFVpqac741 March 11, 2024 12:00amSeptember 2023 10:31amOseltamivir (Tamiflu) 30 mg klybubtGbfvjkvqjakm37XEDHPjhyx vffku9902Pvcnuyws 2024 1:00amJune 2024 3:31pmClopidogrel 75 mg przvztWixpjw15DBLIZolhp03046Xjiw 2024 12:00am Lacunar cerebrovascular accident (CVA) Other cerebral infarction due to occlusion or stenosis of small arteryUnknown Ciprofloxacin Hcl 250 mg nkyephGdyzezfwgrig255MHZHOvbam mymme128Bgikqvlwg 2024 1:35pmOctober 2024 10:17amCiprofloxacin Hcl 250 mg mwyoslWcghra609CX POTwice mtjjm402Vcbjfww 2024 10:16amUnknownRopinirole 1 mg tablet Opmwwwonmtwv3TVGYBdibyUbext 2023 1:00amMay 2023 9:08amAmlodipine 5 mg tabletDiscontinued7.5MGPODailyMarch 2023 10:37amMarch 2023 10:43am FreeTextSi tablet Orally Once a day; Note: Source Status: Taking; Refills: 3; Qty: 90 Tablet; Provider: Mynor Meade EAmlodipine 5 mg tabletDiscontinued7.5 KBLKIphst4992Ilwqc 2023 10:38amMarch 2023 10:45amFreeTextSi tablet Orally Once a day; Note: Source Status: Taking; Refills: 3; Qty: 90 Tablet; Pr ovider: Lowe Halina EAmlodipine 5 mg tabletDiscontinued7.9LMQVCtrww5036Rbhmw 2023 10:45amMarch 2023 11:17amFreeTextSi tablet Orally Once a day; Note: Source Status: Taking; Refills: 3; Qty: 90 Tablet; Provider: Mynor Meade EAmlodipine 5 mg tabletDiscontinued7.5MGPODailyMardina 2023 11:12amJune 2023 2:29pmSulfamethoxazole-Trimethoprim 800-160 mg qmphvgHdpbrefhhoew7XJJHF Twice wrshw340Kqwm 2024 12:00amJuly 2024 1:26pmRopinirole 2 mg tjlkfwKdfdtz9TXAAGrhzj477Uifqcnbzt 2024 1:39pmUnknownBuspirone 5 mg tablet Yxcfef3UHKLEcfmt ifykd111Yzblyaxwb 2024 12:00amUnknown Immunizations Immunization Event Date Not Given Reason 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 Number 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 Lot Number Reason(s) Given Vaccine Information Statement [...] 2025 completed Urine Culture April 21, 2025 active Relevant Diagnostic Tests and/or Laboratory Data Laboratory [...] INFORMATION.Anion GapAugust 2024 9:50pmAugust 2024 9:50pm 14.4Urine ColorSeptember 2024 1:31pmSeptember 2024 1:33pmyellowUrine ColorSeptember 2024 1:46pmSeptember 2024 1:48pmyellowUrine Color April 21, 2025 10:02amOctober 2024 10:04amyellowUrine AppearanceJuly 2024 11:12amJuly 2024 11:14amclearBasophils %March 09, 2025 9:50pmAugust 2024 9:50pm1.0 %0.2-2.0HemoglobinAugust 2024 9:50pm13.1 g/dL12.0-16.0Albumin/Globulin RatioAugust 2024 9:50pmAugust 2024 9:50pm1.0Urine AppearanceSeptember 2024 1:31pmSeptember 2024 1:33pm verycloudyUrine AppearanceSeptember 2024 1:46pmSeptember 2024 1:48pm clearUrine AppearanceOctober 2024 10:02amOctober 2024 10:04amcloudy Urine Specific GravityJuly 2024 11:12amJuly 2024 11:14am1.000 Eosinophils # (Manual)March 09, 2025 9:50pmAugust 2024 9:50pm0.16 10 3/uL0.00-0.70Mean Corpuscular HemoglobinAugust 2024 9:50pm30.0 pg26.7-34.0 AlbuminAugust 2024 9:50pmAugust 2024 9:50pm3.6 g/dL3.4-5.0Urine Specific GravitySeptember 2024 1:31pmSeptember 2024 1:33pm1.005Urine Specific GravitySeptember 2024 1:46pmSeptember 2024 1:48pm1.000Urine Specific GravityOctober 2024 10:02amOctober 2024 10:04am1.010Urine pHJuly 2024 11:12amJuly 2024 11:87qq8Xmbdexdpvfk %March 09, 2025 9:50pmAugust 2024 9:50pm2.0 %0.9-7.0Mean Corpuscular Hemoglobin Concent March 09, 2025 9:50pm33.2 g/dL29.9-35.2Alkaline PhosphataseAugust 2024 9:50pmAugust 2024 9:69sv176 U/T71-883Qhxsz pHSeptember 2024 1:31pm March 14, 2025 1:85to4Ptyok pHSeptember 2024 1:46pmSeptember 2024 1:37cz5Hzjxg pHOctober 2024 10:02amOctober 2024 10:04am6.5Urine Leukocyte EsteraseJuly 2024 11:12amJuly 2024 11:14amnegative Lymphocytes # (Manual)March 09, 2025 9:50pmAugust 2024 9:50pm0.49 10 3/uLBelow low normal1.20-3.80Mean Corpuscular VolumeAugust 2024 9:50pm90.6 fL81.0-99.0Alanine Aminotransferase (ALT/SGPT)March 09, 2025 9:50pmAugust 2024 9:50pm21 U/G83-98Fdspv Leukocyte EsteraseSeptember 2024 1:31pm March 14, 2025 1:33pm+++Urine Leukocyte EsteraseSeptember 2024 1:46pm March 21, 2025 1:48pmnegativeUrine Leukocyte EsteraseOctober 2024 10:02amOctober 2024 10:04am++Urine NitriteJuly 2024 11:12amJuly 2024 11:14amNegativeLymphocytes %March 09, 2025 9:50pmAugust 2024 9:50pm6.0 %Below low .5-60.0Mean Platelet VolumeAugust 2024 9:50pm 11.1 fL9.5-13.5Aspartate Amino Transf (AST/SGOT)March 09, 2025 9:50pmAugust 2024 9:50pm18 U/C31-91Rjdgx NitriteSeptember 2024 1:31pmSeptember 2024 1:33pmPositiveUrine NitriteSeptember 2024 1:46pmSeptember 2024 1:48pmNegativeUrine NitriteOctober 2024 10:02amOctober 2024 10:04amPositiveUrine ProteinJuly 2024 11:12amJuly 2024 11:14am negativeMonocytes # (Manual)March 09, 2025 9:50pmAugust 2024 9:50pm0.41 10 3/uL0.30-0.80Platelet CountAugust 2024 9:58ii101 10 3/mF413-260 BUN/Creatinine RatioAugust 2024 9:50pmAugust 2024 9:50pm25.8Urine ProteinSeptember 2024 1:31pmSeptember 2024 1:33pmnegativeUrine Protein March 21, 2025 1:46pmSeptember 2024 1:48pmnegativeUrine ProteinOct2024 10:02amOctober 2024 10:04am+Urine Glucose (UA)February 09, 2025 11:12amJuly 2024 11:14amnegativeMonocytes %March 09, 2025 9:50pmAugust 2024 9:50pm5.0 %1.7-12.0Red Blood CountAugust 2024 9:50pm4.36 10 6/uL4.20-5.40Blood Urea NitrogenAugus2024 9:50pmAugust 2024 9:50pm 42.0 mg/dLAbove high normal7.0-18.0Urine Glucose (UA)March 14, 2025 1:31pm March 14, 2025 1:33pmnegativeUrine Glucose (UA)March 21, 2025 1:46pm March 21, 2025 1:48pmnegativeUrine Glucose (UA)April 21, 2025 10:02am April 21, 2025 10:04amnegativeUrine KetonesJuly 2024 11:12amJuly 2024 11:14amnegativeSegmented Neutrophils # (Manual)March 09, 2025 9:50pm March 09, 2025 9:50pm7.05 10 3/uLAbove high normal1.4-6.5Red Cell Distribution WidthAu2024 9:50pm13.2 %11.0-15.0Calcium LevelAugust 2024 9:50pmAugust 2024 9:50pm8.8 mg/dL8.5-10.1Urine KetonesSeptember 2024 1:31pmSeptember 2024 1:33pmnegativeUrine KetonesSeptember 2024 1:46pmSeptember 2024 1:48pmnegativeUrine KetonesOctober 2024 10:02amOctober 2024 10:04amnegativeUrine UrobilinogenJuly 2024 11:12amJuly 2024 11:14am0.2Segmented NeutrophilsAugust 2024 9:50pm March 09, 2025 9:50pm86.0Above high ilxpcc73.0-75.0Corrected White Blood CountAugust 2024 9:50pm8.2 10 3/uL4.0-11.0Chloride LevelAugust 2024 9:50pmAugust 2024 9:73kl358 mmol/O24-102Ipshw UrobilinogenSeptember 2024 1:31pmSeptember 2024 1:33pm0.2Urine UrobilinogenSeptember 2024 [...] Occult BloodOctober 2024 10:02am April 21, 2025 10:78fj9-51Roiwppqhf GFR ()March 09, 2025 9:50pmAugust 2024 9:42bb69Xceli low normal>=60 mL/min/1.73m 2Estimated GFR (Non- AmericanAugust 2024 9:50pmAugust 2024 9:79nf61Fmovu low normal>=60 mL/min/1.73m 2GlobulinAugust 2024 9:50pmAugust 2024 9:50pm3.5 g/dLGlucose LevelAugust 2024 9:50pmAugust 2024 9:63je724 mg/dLAbove high wflxuo47-331Beahsivhd LevelAugust 2024 9:50pmAugust 2024 9:50pm3.9 mmol/L3.5-5.1Sodium LevelAugust 2024 9:50pmAugust 2024 9:42ok268 mmol/Y118-090Syudc BilirubinAugust 2024 9:50pmAugust 2024 9:50pm0.5 mg/dL0.2-1.0Total ProteinAugust 2024 9:50pmAugust 2024 9:50pm7.1 g/dL6.4-8.2 Microbiology Results Procedure Source Result Collection Date/Time Result Date/Time Result Comment Performing Site Urine Culture Urine 2 Days February 09, 2025 11:15am Au yissel 2024 9:44am [facility] [id number] [address] [place] [address] Vital Signs Vital Reading Result Reference Range Collection Date/Time Height 60 [in_i] February 07, 2025 10:00paBoqwib83.03 kgJuly 2024 10:35amHeart Rate84 /min 60-100July 2024 10:35amRespiratory rate16 /lyy39-65Hkuv 2024 10:35am Oxygen saturation by Pulse zsxtzxup43 %95-100July 2024 10:35amBP Systolic 140 mm[Hg]100-140July 2024 10:35amBP Mhekfzbcz78 mm[Hg]60-100July 2024 10:35amBMI (Body Mass Index)29.2 kg/m2July 2024 10:39xpPjbyqx82 [in_i]March 21, 2025 1:07ywCrlhdq17.58 kgSeptember 2024 1:04pmHeart Rate85 /ruu98-288Vjiqkzxzl 9th, 2025 1:04pmBP Efmgfxfs504 mm[Hg]100-140September 2024 1:04pmBP Cfjowxsvi74 mm[Hg]60-100September 2024 1:04pmBMI (Body Mass Index)29.0 kg/o8Uhjsatmzy 2024 1:04pm Advance Directives Advance Directive Response Recorded Date/ Time Advance Directives No June 11:52am Insurance Providers Guarantor Ella Urena Address [address] [place] [address]Ujtqnil Info.Home Phone: Coverage Status Update:2024 Payer Group Member ID Coverage Type Subscriber Relationship to Subscriber Effective Date Expiration Date Medicare Id: [id number] C Ruffing Id: [id number] [facility] [address] Home Phone: Email: [email or web address] Encounters Encounter Location(s) Arrival/Admit Date Discharge/Departure Date Discharge/Departure Disposition Provider(s) Departed Physician/ Provider Office Visit -[facility] February 07, 2025 10:29am February 07, 2025 11:16am Discharged to home care or self care (routine discharge) Inessa Haynes APRN-LACEY-Kayleigh Departed Physician/ Provider Office Visit -[facility] February 09, 2025 11:06am February 09, 2025 11:17am Discharged to home care or self care (routine discharge) Halina Lowe MD Departed Referred -[facility] February 09, 2025 11:15am February 09, 2025 11:16am Discharged to home care or self care (routine discharge) Halina Lowe MD Non-patient / Non-visit -[facility] ugust 2024 9:50pm Halina Lowe , MDDeparted Physician/Provider [facility] 1:04pmSeptember 2024 1:48pmDischarged to home care or self care (routine discharge)Halina Lowe MDNon-patient / [facility]- [facility] 20[facility] 11:31amCatedie Loaiza [facility]Dep[facility] Phys[facility]/Provider [facility] 1:01pmSeptember 2024 1:48pmDischarged to home care or self care (routine discharge)Halina Lowe MDDeparted Physician/[facility] 20[facility] 1:29pmOctober 2024 2:06pmDischarged to home care or self care (routine discharge)Clarisse Conti PhDDeparted Physician/Provider [facility] 2024 12:12pmOctober 2024 1:59pmDischarged to home care or self care (routine discharge)Clarisse Conti PhDDeparted Physician/Provider [facility] 2024 9:59amOctober 2024 10:04am Discharged to home care or self care (routine discharge)Shonna Villeda APRN CNPDeparted [facility] 2024 10:22amOctober 2024 10:23amDischarged to home care or [...] March 21, 2025 1:01pm Memory changes Unknown Lori 9th, 2 025 1:01pm Restless leg syndrome Unknown March [...] 12:12pm UTI (urinary tract infection) Unknown Oc 2024 9:59am Assessments Diagnosis Onset Date Resolution Status Admit [...] 2024 12:12pmUTI (urinary tract infection)acuteOctober 2024 9:59am Plan of Treatment Author Inessa Haynes [facility] HospitalAuthoredJuly 2024 6:26pmMs. Ayanna is an 84-year-old female who reports memory [...] plan. All questions answered. Author Shonna Villeda [facility] HospitalAuthoredOctober 2024 10:41am Reviewed results of urine dipstick [...] if this would occur. Author Halina Lowe [facility] HospitalAuthoredJuly 2024 1:45pmUA normal. Culture sent. Author [facility] 6:06pmPt agrees to referral to Neuropsychiatry [...] Tests Test Name Ordered Date Scheduled Date Urine Culture April 21, 2025 10:22am Future Visits Future appointment information is unavailable Future Procedures Procedure Name Ordered Date Scheduled Date Urine Culture January 24, 2025 11:09am Future Medications Future medication information is unavailable Patient Instructions Patient instructions are unavailable
--- OUTSIDE RECORDS SUMMARY | 2025-05-09 09:35 | XMS_ITS | Clinical Summary ---
Author Organization [facility] Address [address] [place] [address] Care Team Providers Care Manuscript Editor Name Role Phone Unavailable Primary Care Provider Unavailabl e Social History Tobacco UseTypesPacks/DayYears UsedDateSmoking Tobacco: Never Assessed CommentsUnknownSex and Gender InformationValueDate RecordedSex Assigned at Not on fileLegal LtbEtcuso72/30/2022 12:14 AM EDTGender IdentityNot on file Sexual OrientationNot on file Last Filed Vital Signs Vital SignReadingTime TakenCommentsBlood Hxwmlaxi622/8407/11/2019 9:58 AM EST Pulse--Temperature--Respiratory Rate--Oxygen Bkoangorer85%07/11/2019 9:57 AM EST Inhaled Oxygen Concentration--Jgyofw74.4 kg (153 lb)07/11/2019 9:55 AM ESTHeight 152.4 cm (5')07/11/2019 9:55 AM ESTBody Mass Index29.8807/11/2019 9:55 AM EST Plan of Treatment Health MaintenanceDue DateLast DoneCommentsMedicare Annual Wellness (AWV) 1940Depression Xjfznstzw75/08/1952Adult Hnfpaba46/08/1962Pneumococcal Vaccine: 50+ Years (1 of 1 - PCV)1990Zoster Vaccines (1 of 2)1990 Fall Risk Mepgsagul39/08/2005COVID-19 Vaccine (1 - 2024-26 season)2025 Influenza Vaccine (#1)2025HIB VaccinesAged OutNo longer eligible based on patient's age to complete this topicHPV VaccinesAged OutNo longer eligible based on patient's age to complete this topicIPV VaccinesAged OutNo longer eligible based on patient's age to complete this topicMeningococcal B VaccineAged OutNo longer eligible based on patient's age to complete this topicMeningococcal VaccineAged OutNo longer eligible based on patient's age to complete this topic Rotavirus VaccinesAged OutNo longer eligible based on patient's age to complete this topic Insurance
--- OUTSIDE RECORDS SUMMARY | 2025-05-09 09:35 | XMS_ITS | Clinical Summary ---
Author Organization [facility] Healthcare Address [address] [place] [address] Care Team Providers Care Clinical Informatics Director Name Role Phone Halina Lowe MD Primary Care Provider [phone] Allergies Active AllergyReactionsCriticalityNoted CzcnPmzenrnaAtykjyvxawmtnqp50/24/2024 Other Reaction(s): rash/itching PchqnjktyticfdTnncwqt78/24/4841Reuucauqzyg39/25/2019 Other Reaction(s): rash/itching Pseudoephedrine Hcl10/04/2023 Other Reaction(s): rash/itching CxlzeelBmsndcl84/24/2024 Medications MedicationSigDispense QuantityRefillsLast FilledStart DateEnd DateStatus amitriptyline (Elavil) 10 MG tablet 10 mgActive Glucosamine-Chondroitin 0921-7188 MG/30ML liquid 1 (one) time each day at the same timeActive rOPINIRole (Requip) 1 MG tablet TAKE 1 TABLET BY MOUTH 1 TO 3 HOURS BEFORE BEDTIME DAILY08/21/2023ctive Potassium Gluconate 595 MG capsule Take 1 tablet by mouth DailyActive [place]-3 Fatty Acids (Fish Oil) 1200 MG capsule delayed-release Take 1 capsule by mouth DailyActive therapeutic multivitamin-minerals (Theragran-M) tablet Take 1 tablet by mouth DailyActive methenamine hippurate (Hiprex) 1 g tablet TAKE 1 TABLET BY MOUTH EVERY DAY FOR 90 DAYS09/20/2023ctive lisinopril-hydroCHLOROthiazide 20-25 MG tablet Take 2 tablets by mouth DailyActive levothyroxine (Synthroid, Levoxyl) 50 MCG tablet Take 1 tablet every day by oral route for 90 days.Active cyanocobalamin (Vitamin B-12) 1000 MCG tablet Take 2,000 mcg by mouth DailyActive amLODIPine (Norvasc) 5 MG tablet TAKE 1 AND 1/2 TABLETS BY MOUTH ONCE A DAYActive aspirin 81 MG chewable tablet Chew 1 tablet every day by oral route.Active cholecalciferol (Vitamin D-3) 25 MCG (1000 UT) tablet Take 1,000 Units by mouth DailyActive estradiol (Estrace) 0.1 MG/GM vaginal cream 1 gram Vaginal Once per week for 30 daysActive lisinopril 20 MG tablet 09/29/2023ctive magnesium oxide (Mag-Ox) 400 mg tablet 400 mg DailyActive Social History Tobacco UseTypesPacks/DayYears UsedDateSmoking Tobacco: Never Assessed CommentsUnknownSex and Gender InformationValueDate RecordedSex Assigned at Not on fileLegal TjhZxgvjl67/01/2023 8:34 PM EDTGender IdentityNot on fileSexual OrientationNot on file Last Filed Vital Signs Vital SignReadingTime TakenCommentsBlood Nnzntpcg503/9208/17/2024 9:14 AM EST Sadww767208/17/2024 9:14 AM JXGVlnlpopznyf81.9 ??C (96.7 ??F)10/04/2023 12:39 PM EDTRespiratory Rate--Oxygen Zedyuoofyq85%08/17/2024 9:14 AM ESTInhaled Oxygen Concentration--Nwmnvk07.8 kg (151 lb 9.6 oz)08/17/2024 9:14 AM LUWMcuyyh558.7 cm (5' 0.5 )01/09/2021 12:00 PM EDTBody Mass Index29.12001/09/2021 12:00 PM EDT Plan of Treatment Health MaintenanceDue DateLast DoneCommentsPneumococcal Vaccine: 65+ Years (2 of 2 - PCV20 or PCV21)Influenza Vaccine (#1)2025 05/04/2024, 05/16/2023, 05/16/2022, Additional history exists Insurance Care Teams Team MemberRelationshipSpecialtyStart DateEnd Halina Lowe MD PCP - GeneralFamily Uvvrlwoo70/17/24
--- OUTSIDE RECORDS SUMMARY | 2025-05-09 09:35 | XMS_ITS | Clinical Summary ---
Author Organization [facility] Address [address], [address] [place] [address] Care Team Providers Care [employer] Glazer Name Role Phone Halina Lowe MD Primary Care Provider [phone] Allergies Active AllergyReactionsCriticalityNoted DateCommentsAntihistamines, Loratadine-JzlzPhlgCri57/25/8225WeygtRkebKey39/25/2019 decongestants Sqoloovvajt63/25/2019 Medications MedicationSigDispense QuantityRefillsLast FilledStart DateEnd DateStatus levothyroxine (SYNTHROID) 50 MCG tablet Take 50 mcg by mouth DailyActive clonazePAM (KLONOPIN) 0.5 MG tablet Take 0.5 mg by mouth 2 times daily as needed.Active omeprazole (PRILOSEC) 20 MG delayed release capsule Take 20 mg by mouth dailyActive Misc Natural Products (GLUCOSAMINE CHOND MSM FORMULA PO) Take 1 tablet by mouth dailyActive calcium citrate-vitamin D (CITRICAL + D) 315-250 MG-UNIT TABS per tablet Take 1 tablet by mouth daily (with breakfast)Active [place]-3 Fatty Acids (FISH OIL) 1200 MG CPDR Take 1 capsule by mouth dailyActive vitamin D (CHOLECALCIFEROL) 1000 UNIT TABS tablet Take 1,000 Units by mouth dailyActive vitamin B-12 (CYANOCOBALAMIN) 1000 MCG tablet Take 2,000 mcg by mouth dailyActive Multiple Vitamins-Minerals (THERAPEUTIC MULTIVITAMIN-MINERALS) tablet Take 1 tablet by mouth dailyActive Multiple Vitamins-Minerals (PRESERVISION AREDS 2) CAPS Take 1 capsule by mouth dailyActive Potassium Gluconate 595 MG CAPS Take 1 tablet by mouth dailyActive atorvastatin (LIPITOR) 20 MG tablet Take 1 tablet by mouth daily 30 tablet 10/05/2018Active clopidogrel (PLAVIX) 75 MG tablet Take 1 tablet by mouth daily5Active amitriptyline (ELAVIL) 10 MG tablet Take 1 tablet by mouth jrikmsi21/12/2025Active busPIRone (BUSPAR) 5 MG tablet Take 1 tablet by mouth 2 times daily5Active donepezil (ARICEPT) 5 MG tablet Take 1 tablet by mouth tyxyiec69/21/2025Active rOPINIRole (REQUIP) 2 MG tablet Take 1 tablet by mouth xkfsanp94/09/2025Active losartan-hydroCHLOROthiazide (HYZAAR) 100-12.5 MG per tablet Take 1 tablet by mouth daily 30 tablet 5Active lisinopril-hydrochlorothiazide (PRINZIDE;ZESTORETIC) 20-25 MG per tablet Take 2 tablets by mouth daily05/06/2025Discontinued(Stop Taking at Discharge) aspirin 81 MG tablet Take 81 mg by mouth daily05/06/2025Discontinued(LIST CLEANUP) Active Problems ProblemNoted DateDiagnosed WxddIyxuvyuej99/25/2025Near syncope suspect prerenal 05/06/2025Prerenal azotemia likely from HCTZ14270Kgjtcjgyrepp41/26/2019 Iajsmcilghbn95/26/6959Mnsjpdxuniz76/26/2019Syncope and imgrbfdr99/25/2019 Encounters DateTypeDepartmentCare OsfiYzxytduptte51/24/2025 9:24 PM EDT - 05/06/2025 1:54 PM EDTHospital Encounter [facility] [address] [place], [place] [id number] Trinidad Marshall, DO Mai, Jarret De La Torre MD Congestive heart failure, unspecified HF chronicity, unspecified heart failure type (HCC) (Primary Dx); Elevated troponin; Dizziness Discharge Disposition: Home or Self Care05/05/2025Travelfrom Last 3 Months Social History Tobacco UseTypesPacks/DayYears UsedDateSmoking Tobacco: NeverAlcohol UseStandard Drinks/WeekCommentsNever0 (1 standard drink = 0.6 oz pure alcohol)AUDIT-CAnswer Date RecordedFrequency of Alcohol UjqvxwslqkpFfxsr09/25/2019Average Number of DrinksNot on file10/04/2018Frequency of Binge [...] were you homeless or living in a chcf (including now)?No05/06/2025UDIT-CAnswerDate RecordedQ1: How often do you [...] Safety Domain Source: IP Abuse ScreeningAnswerDate RecordedPhysical wfknqIdltcx98/25/2025Verbal abuseDenies 05/06/2025Emotional yleyaMnrvbn49/25/2025Financial hebruIojtbm60/25/2025Sexual xdjziOxpmpm11/25/2025CommentsUnknownSex and Gender InformationValueDate RecordedSex Assigned at BirthNot on fileLegal KduAcyzgh76/12/2013 6:51 AM EST Gender IdentityNot on fileSexual OrientationNot on file Last Filed Vital Signs Vital SignReadingTime TakenCommentsBlood Ghryfnwl404/801 6:51 AM EDT Erusm413105/06/2025 6:51 AM HTVWnrhotqczhi36.7 ??C (98.1 ??F)05/05/2025 9:26 PM EDTRespiratory Toob8828 7:19 AM EDTOxygen Lnewwekrcx33%05/06/2025 7:19 AM EDTInhaled Oxygen Concentration--Dxrnkm99.4 kg (153 lb)05/06/2025 7:19 AM EDT Asvwer125.4 cm (5')05/06/2025 7:19 AM EDTBody Mass Index29.8805/06/2025 7:19 AM EDT Plan of Treatment Health MaintenanceDue DateLast GtqbKqqqvmolUmtagj70/08/1950Depression Screen 2DTaP/Tdap/Td vaccine (1 - Tdap)1959Pneumococcal 50+ years Vaccine (1 of 2 - PCV)1959Shingles vaccine (1 of 2)1990DEXA (modify frequency per FRAX score)1995Respiratory Syncytial Virus (RSV) or age 60 yrs+ (1 - 1-dose 75+ series)2015nnual Wellness Visit (Medicare Advantage)07/13/2024Flu vaccine (#1)02/10/2025OVID-19 Vaccine ( - season)2025Hepatitis A vaccineAged OutNo longer eligible based on patient's age to complete this topicHepatitis B vaccineAged OutNo longer eligible based on patient's age to complete this topicHib vaccineAged OutNo longer eligible based on patient's age to complete this topicMeningococcal (ACWY) vaccineAged OutNo longer eligible based on patient's age to complete this topicMeningococcal B vaccineAged OutNo longer eligible based on patient's age to complete this topicPolio vaccineAged OutNo longer eligible based on patient's age to complete this topic Procedures Procedure NamePriorityDate/TimeAssociated DiagnosisCommentsPULSE OXIMETRY SPOT ZAONTEmtpmbh18/25/2025 3:16 AM YPACFIXZNJQDWUP95/24/2025 10:[address] CHEST PULMONARY EMBOLISM W RCOWHDIDGNPC53/24/2025 10:[address] HEAD WO RERCSEEORTKX46/24/2025 10:38 PM EDT CTA HEAD NECK W EEYSWZMKGUJP34/24/2025 10:29 PM EDT MICROSCOPIC NFECMYPIVYJpkueof22/24/2025 10:20 PM EDT URINALYSIS WITH REFLEX TO FIHEPSOGBFZ07/24/2025 10:20 PM EDT EKG 12-UULTOikzqiq82/24/2025 9:28 PM EDT D-DIMER, CPURUKGZOBDPTGBG49/24/2025 9:15 PM EDT BRAIN NATRIURETIC RFQIIXGOAVU87/24/2025 9:15 PM EDT YLLUXGCNIWNB79/24/2025 9:15 PM EDT BASIC METABOLIC VBWXFWXFC75/24/2025 9:15 PM EDT CBC WITH AUTO BMXMMNBJUJTJVEVD81/24/2025 9:15 PM EDT from Last 3 Months Results * (ABNORMAL) Troponin (05/05/2025 10:55 PM EDT) Only the most recent of2 resultswithin the time period is included. ComponentValueRef RangeTest MethodAnalysis TimePerformed AtPathologist Signature Troponin, High Reulcsntbee81(H)0 - 14 ng/L1 10:[address] [facility] LABComment:High Sensitivity Troponin values cannot be compared with other Troponin methodologies.Specimen (Source)Anatomical Location / LateralityCollection Method / VolumeCollection TimeReceived TimeBloodBLOOD SPECIMEN / Mmakmdw0105/05/2025 10:55 PM EDT1 11:00 PM EDT Narrative Authorizing ProviderResult TypeResult StatusChtosin Marshall DOCHEMISTRY ORDERABLESFinal ResultPerforming OrganizationAddressCity/State/ZIP CodePhone Number [facility] [address] [id number], [facility] [phone] * CT CHEST PULMONARY EMBOLISM W CONTRAST [...] of prior granulomatous disease. Authorizing ProviderResult TypeResult StatusChtosni Marshall [facility] CT ORDERABLESFinal Result * CT Head [...] intracranial abnormality. Authorizing ProviderResult TypeResult StatusChtosin Marshall [facility] CT ORDERABLESFinal Result * CTA HEAD [...] ??Bilateral posterior communicating arteries are present. ??The mainspring barrel assembly cleaner are patent to the extent visualized. ??No aneurysm. OTHER: No dural venous sinus thrombosis on this non-dedicated study. BRAIN: See separately dictated noncontrast head CT report. Procedure Note Estefany, Dong H, MD - 05/05/2025 EXAMINATION: CTA OF THE [...] well as surgical consultation. Authorizing ProviderResult TypeResult StatusChtosin Marshall [facility] CT ORDERABLESFinal Result * Urinalysis with Reflex to Culture (05/05/2025 10:20 PM EDT)ComponentValueRef RangeTest MethodAnalysis TimePerformed AtPathologist Rachel Paredes05/05/2025 10:20 PM EDC[facility] Hospitalidity UAClear Clear05/05/2025 10:20 PM [facility] LABGlucose, Ur NEGATIVENEGATIVE mg/dL05/05/2025 10:20 PM [facility] Bilirubin, TekgvSVMPUHWCPWANRLRO90/24/2025 10:20 PM [facility] LABKetones, UrineNEGATIVENEGATIVE mg/dL05/05/2025 10:20 PM [facility] LABSpecific [place], UA1.0201.010 - 1.0815805/05/2025 10:20 PM [facility] LABUrine HgbNEGATIVENEGATIVE 05/05/2025 10:20 PM [facility] LABpH, Urine6.05.0 - 9.0 05/05/2025 10:20 PM [facility] LABProtein, UANEGATIVE NEGATIVE mg/dL05/05/2025 10:20 PM [facility] Urobilinogen, UrineNormal0.0 - 1.0 EU/dL05/05/2025 10:20 PM [facility] LABNitrite, LjzzxLRDQBLYFKQIXCZGQ53/24/2025 10:20 PM [facility] LABLeukocyte Esterase, HacilDVSKCSZIYMZKISQD96/24/2025 10:20 PM [facility] LABSpecimen (Source)Anatomical Location / LateralityCollection Method / VolumeCollection TimeReceived Time Urine05/05/2025 10:20 PM EDT1 10:24 PM EDT Narrative Authorizing ProviderResult TypeResult StatusChrisbrittany PARK ORDERABLES Final ResultPerforming OrganizationAddressCity/State/ZIP CodePhone Number [facility] [address] [place] [address], [facility] [phone] * (ABNORMAL) Microscopic Urinalysis (05/05/2025 10:20 PM EDT)ComponentValueRef RangeTest MethodAnalysis TimePerformed AtPathologist SignatureWBC, UA2 TO 50 - 5 /HPF05/05/2025 10:20 PM [facility] LABRBC, UANone0 - 2 /HPF05/05/2025 10:20 PM [facility] LABEpithelial Cells, UA2 TO 50 - 25 /HPF05/05/2025 10:20 PM [facility] Bacteria, UATRACE(A)None05/05/2025 10:20 PM [facility] LABSpecimen (Source)Anatomical Location / LateralityCollection Method / Volume Collection TimeReceived Time05/05/2025 10:20 PM EDT1 10:24 PM EDT Narrative Authorizing ProviderResult TypeResult StatusChrisbrittany PARK ORDERABLES Final ResultPerforming OrganizationAddressCity/State/ZIP CodePhone Number [facility] [address] [place] [address], [facility] [phone] * EKG 12 Lead (05/05/2025 9:28 PM EDT)ComponentValueRef RangeTest MethodAnalysis TimePerformed AtPathologist SignatureVentricular Znbf06NIIOVLW [facility] RADIOLOG[facility] Atrial Twag52IOWKSEX [facility] RADIOLOGYP-R Zaqttwcx282vkHDBF [facility] RADIOLOGYQRS Dmbxbebd124goDWUD [facility] RADIOLOGYQ-T Iqtkxepm124yoGJJH [facility] RADIOLOGYQTc Calculation (Bazett)454msMHPN [facility] RADIOLOGYP Qgtt88gpxsytxBTYS [facility] RADIOLOGYR Crawford-2degreesMHPN [facility] RADIOLOGYT Tidz136btjsyxbOFTY [facility] RADIOLOGYSpecimen (Source)Anatomical Location / LateralityCollection Method / VolumeCollection TimeReceived Time05/05/2025 9:28 PM EDT Narrative [facility] - 05/07/2025 12:00 PM EDT Normal [...] 05/07/2025 12:00:52 PM Authorizing ProviderResult TypeResult StatusChrisbrittany Marshall DOECG ORDERABLES Final ResultPerforming OrganizationAddressCity/State/ZIP CodePhone Number [facility] * CBC with Auto Differential (05/05/2025 9:15 PM EDT)ComponentValueRef RangeTest MethodAnalysis TimePerformed AtPathologist SignatureWBC8.03.5 - 11.3 k/uL 05/05/2025 9:15 PM [facility] LABRBC4.533.95 - 5.11 m/uL 05/05/2025 9:15 PM [facility] WBSSkjqrvajhv58.811.9 - 15.1 g/dL05/05/2025 9:15 PM [facility] EIVSanvnmaxry04.5 36.3 - 47.1 %05/05/2025 9:15 PM [facility] WRCCZS71.482.6 - 102.9 fL05/05/2025 9:15 PM [facility] WSHWEY91.525.2 - 33.5 pg05/05/2025 9:15 PM [facility] ERJYANA10.128.4 - 34.8 g/dL05/05/2025 9:15 PM [facility] YMWSIC27.711.8 - 14.4 %05/05/2025 9:15 PM [facility] QFQJpqtnhihm192874 - 453 k/uL05/05/2025 9:15 PM [facility] NQERVD59.78.1 - 13.5 fL05/05/2025 9:15 PM [facility] LABNRBC Automated0.0 0.0 per 100 WBC05/05/2025 9:15 PM [facility] Neutrophils %5936 - 65 %05/05/2025 9:15 PM [facility] Lymphocytes %3024 - 43 %05/05/2025 9:15 PM [facility] Monocytes %73 - 12 %05/05/2025 9:15 PM [facility] Eosinophils %31 - 4 %05/05/2025 9:15 PM [facility] Basophils %10 - 2 %05/05/2025 9:15 PM [facility] Immature Granulocytes %00 %05/05/2025 9:15 PM [facility] LABNeutrophils Absolute4.701.50 - 8.10 k/uL05/05/2025 9:15 PM [facility] LABLymphocytes Absolute2.381.10 - 3.70 k/uL05/05/2025 9:15 PM [facility] LABMonocytes Absolute0.580.10 - 1.20 k/uL 05/05/2025 9:15 PM [facility] LABEosinophils Absolute0.26 0.00 - 0.44 k/uL05/05/2025 9:15 PM [facility] Basophils Absolute0.050.00 - 0.20 k/uL05/05/2025 9:15 PM [facility] LABImmature Granulocytes Absolute<0.030.00 - 0.30 k/uL 05/05/2025 9:15 PM [facility] LABSpecimen (Source) Anatomical Location / LateralityCollection Method / VolumeCollection Time Received TimeBloodBLOOD SPECIMEN / Wdynnpe3505/05/2025 9:15 PM EDT1 9:38 PM EDT Narrative Authorizing ProviderResult TypeResult StatusChtosin Marshall DOHEMATOLOGY ORDERABLESFinal ResultPerforming OrganizationAddressCity/State/ZIP CodePhone Number [facility] [address] [place] [address], [facility] [phone] * (ABNORMAL) D-Dimer, Quantitative (05/05/2025 9:15 PM EDT)ComponentValueRef RangeTest MethodAnalysis TimePerformed AtPathologist SignatureD-Dimer, Quant 3.18(H)0.00 - 0.59 ug/mL FEU1 9:15 PM EDTMBUCYRUS COMM[facility] LABComment: ? When combined with [...] / Volume Collection TimeReceived TimeBloodBLOOD SPECIMEN / Hhmzkjy3605/05/2025 9:15 PM EDT 05/05/2025 9:38 PM EDT Narrative Authorizing ProviderResult TypeResult StatusChtosin Marshall DOHEMATOLOGY ORDERABLESFinal ResultPerforming OrganizationAddressCity/State/ZIP CodePhone Number [facility] [address] [place] [address], [facility] [phone] * (ABNORMAL) Brain Natriuretic Peptide (05/05/2025 9:15 PM EDT)ComponentValueRef RangeTest MethodAnalysis TimePerformed AtPathologist SignatureNT Pro-DXB623(H) 0 - 450 pg/mL05/05/2025 9:15 PM [facility] LABSpecimen (Source)Anatomical Location / LateralityCollection Method / VolumeCollection TimeReceived TimeBloodBLOOD SPECIMEN / Qaiytmg1505/05/2025 9:15 PM EDT1 9:38 PM EDT Narrative Authorizing ProviderResult TypeResult StatusChtosin Marshall DOCHEMISTRY ORDERABLESFinal ResultPerforming OrganizationAddressCity/State/ZIP CodePhone Number [facility] [address] [phone] * (ABNORMAL) Basic Metabolic Panel (05/05/2025 9:15 PM EDT)ComponentValueRef RangeTest MethodAnalysis TimePerformed AtPathologist MojlfsngrBzvoqr137662 - 145 mmol/L1 9:15 PM [facility] LABPotassium4.0 3.7 - 5.3 mmol/L1 9:15 PM [facility] LABChloride 62800 - 107 mmol/L1 9:15 PM [facility] QXKCZ385 20 - 31 mmol/L1 9:15 PM [facility] LABAnion Gap 129 - 16 mmol/L1 9:15 PM [facility] LABGlucose 104(H)74 - 99 mg/dL05/05/2025 9:15 PM [facility] CKVMPG17 (H)8 - 23 mg/dL05/05/2025 9:15 PM [facility] LAB Creatinine1.6(H)0.50 - 0.90 mg/dL05/05/2025 9:15 PM [facility] LABEst, Glom Filt Rate33(L)>60 mL/min/1.74y69405/05/2025 9:15 PM EDT [facility] LABComment: ? These results are not intended [...] tubular secretion. BUN/Creatinine Ratio23(H) - 9:15 PM [facility] LABCalcium9.78.6 - 10.4 mg/dL05/05/2025 9:15 PM [facility] LABSpecimen (Source)Anatomical Location / LateralityCollection Method / VolumeCollection TimeReceived TimeBloodBLOOD SPECIMEN / Jmfbmhy3105/05/2025 9:15 PM EDT1 9:38 PM EDT Narrative Authorizing ProviderResult TypeResult StatusChtosin Marshall DOCHEMISTRY ORDERABLESFinal ResultPerforming OrganizationAddressCity/State/ZIP CodePhone Number [facility] [address] [place] [address], [facility] [phone] from Last 3 Months Insurance Advance Directives * Full Code (Latest Code Status on File) Date ActivatedDate PxrbcdghkgpPqmbvodj62/25/2025 3:16 AM05/06/2025 3:59 PM * Full Code Date ActivatedDate InactivatedComments10/04/2018 10:25 PM10/05/2018 4:45 PM Care Teams Team MemberRelationshipSpecialtyStart DateEnd Date Halina Lowe MD [facility]10/04/18
== END 2025-05-09 09:30 | disposition home or self-care (01) ==
LOC: RAD 09:29
PROVIDERS: PCP Family Medicine; Visit Provider Family Medicine
DX: Z78.0 Asymptomatic menopausal state (principal); M81.0 Age-related osteoporosis without current pathological fracture; M85.88 Other specified disorders of bone density and structure, other site
CPT/HCPCS: 77080

== ENCOUNTER 2025-06-03 10:35 | Outpatient (OUT) | payer MEDICARE, SELFPAY ==
--- OUTSIDE RECORDS SUMMARY | 2012-11-17 05:00 | XMS_ITS | Continuity of Care Document ---
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 Name Role Phone Dirk Madrigal MD Unavailable Unavailable Allergies, Adverse Reactions, Alerts Substance Reaction Status Criticality Penicillins hivs Active No Information Medications Medication Instructions Dosage Effective Dates (start - stop) Status Comments potassium gluconate ER 595 mg (99 mg) tablet,extended release qd - Active FISH OIL (unknown strength) bid Not Available - Active medroxyprogesterone 2.5 mg tablet qd - Active GLUCOSAMINE-CHONDROITIN (unknown strength) qd Not Available - Active clonazepam 0.5 mg tablet bid - Activ e estradiol 0.5 mg tablet qd - Active lisinopril-hydrochloroth iazide 20 mg-12.5 mg tablet 2 tabs qd 1.00 tablet - Active multivitamin tablet take 1 tablet by oral route every day with food - Active CALCIUM 500-VIT D3 (unknown strength) bid Not Available - Active ASPIRIN (unknown strength) 81 mg qd Not Available - Active Procedures Procedure Date Eye Exam With Treatment Apr Advance Directives Directive Yes / No Effective Date File Name Resuscitation Not Answered N/A N/A Life Support Not Answered N/A N/A Intubation Not Answered N/A N/A Antibiotics Not Answered N/A N/A IV Fluid Support Not Answered N/A N/A Tube Feed Not Answered N/A N/A Other Directive N/A N/A WARNING:The information contained in this section is historical and is provided for information only and does not constitute a legal document or any assurance that the information is still accurate. Please verify the information with the goodrich of the legal document before using it for clinical purposes. Encounters Encounter Description Practice Location Reason(s) For Visit Diagnoses Date Provider Providers Copied on Encounter [facility], [address] [place], [address], [place] tel:[phone] RVCharu Mcclelland Macular puckering of retinaSenile nuclear sclerosisPseudophakia Vitreous degeneration 3 Kaitlin Cavazos. [address], [address], [place], [place], [id number] , [place]. tel:[phone] Referring Provider: Dirk Harris, [address], [place], [address] . tel:[phone] Family History Family Member Type Diagnosis Age At Onset Problem (finding) Family history of HBP Problem (finding) Family history of catar act Payers Payer name Insurance type Covered libertarian ID Authoriza tion(s) No Information Social History Type Description Quantity Date Captured Comments Alcohol Use Details No Caffeine Use Details Unknown Tobacco Use Status No Information Smoking Status Never smoker Non-Smoking Tobacco Use Details : No Details Available : No Details Available [id number] SexFemale Chief Complaint And Reason For Visit No Information Reason For Referral Reason For Referral No Information History Of Present Illness Encounter Date Complaint History Of Prese nt Illness No Information Functional Status Date Functional Assessmen t No Information Instructions Date Instruction Additional Infor mation Senile nuclear scler osis OS Condition: moderate, chronic, worsening. - The progression of cataracts was noted on examination today and discussed with the patient. It is reasonable from a retinal standpoint that the patient return to their referring physician for further evaluation of the cataracts and to discuss possible prescription update and possible surgical benefits of cataract removal in the future. 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 - Discussed diagnosis in detail with patient. Condition is resolved and stable. Patient will follow up with her primary eyecare specialist and return to see us as needed. 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 Related to Pseudophakia PVD (Vitreous degene ration) OU Condition: mild, chronic, stable. Related to PVD (Vitreous degeneration) Assessments Type Assessment Date No Information Patient Care Teams Name Effective Dates (start - stop) Status Members No Information
--- OUTSIDE RECORDS SUMMARY | 2024-11-28 06:30 | XMS_ITS ---
Author Organization [facility] Address [address] [place] [address] Care Team Providers Care Electronics Technician Apprentice Name Role Phone Edgar Puga Unavailable [phone] REASON FOR VISIT RT HUMERUS FX Encounters Encounter Location Date Provider Diagnosis [facility] [address] [place] [address] [address] [place] [address] 11/28/2024 Edgar Puga Plan Of Treatment No Information Progress Notes * ABDIAZIZSHAYE NETTAEDOB:[birth year] (84 yo F)Acc No.[id number]:11/28/2024 Patient:?BHARATH FRANKANNE :[facility]1940[facility]Age:84 Y ???Sex:FemaleDate:11/28/2024Phone:[phone]:[id number] Subjective: * Chief Complaints: * 1 . RT HUMERUS FX. * Medical History: Objective: * Vitals: Assessment: Plan: * Treatment: Forms: * Images: * Electronic signature of Edgar Puga MD on 06/03/2025 at 10:40 AM ESTSign off status: Pending * Provider: Joseph Puga MD Date: 0 11/28/2024 Generated for Printing/Faxing/eTransmitting on:?06/03/2025 10:40 AM EST
--- OUTSIDE RECORDS SUMMARY | 2025-01-23 05:20 | XMS_ITS ---
Author Organization [facility] Address [address] [place] [address] Care Team Providers Care Compress Engineer Name Role Phone Edgar Puga Unavailable [phone] REASON FOR VISIT RIGHT HUMERUS FX Encounters Encounter Location Date Provider Diagnosis [facility] [address] [place] [address] [place] [address] 01/23/2025 Edgar Puga Plan Of Treatment No Information Progress Notes * ABDIAZIZSHAYE NETTAEDOB:[birth year] (84 yo F)Acc No.[id number]:01/23/2025 Patient:?BHARATH FRANKANNE :?[facility]1940[facility]Age:84 Y ???Sex:FemaleDate:01/23/2025Phone:[phone]:[id number] [id number] Subjective: * Chief Complaints: * 1 . RIGHT HUMERUS FX. * Medical History: Objective: * Vitals: Assessment: Plan: * Treatment: Forms: * Images: * Electronic signature of Edgar Puga MD on 06/03/2025 at 10:40 AM ESTSign off status: Pending * Provider: Joseph Puga MD Date: 0 01/23/2025 Generated for Printing/Faxing/eTransmitting on:?06/03/2025 10:40 AM EST
--- OUTSIDE RECORDS SUMMARY | 2025-02-21 05:40 | XMS_ITS ---
Author Organization [facility] [place] Address [address] [place] [address] Care Team Providers Care Chairman President And Chief Executive Officer Name Role Phone Mynor BRAGG, Halina Primary Care Provider Max Amaya [phone] REASON FOR VISIT F/u Encounters Encounter Location Date Provider Diagnosis [facility] [address] [address] 02/21/2025 Max Shah Plan Of Treatment No Information Progress Notes * Ella FRANK CDOB:1939 (84 yo F)Acc No.[id number]:02/21/2025 UNLOCKED PROGRESS NOTE Patient:?Ella FRANK :?Max Shah, MDDOB:1940???Age:84 Y ???Sex:FemaleDate:02/21/2025Phone:[phone]:[address] [id number]:Halina Lowe MD Subjective: * Chief Complaints: * 1 . F/u. * Medical History: Objective: * Vitals: Assessment: Plan: * Treatment: * * Electronic signature of Max Shah MD, [id number] on 06/03/2025 at 10:40 AM ESTSign off status: PendingVisit Status:?CANC (Cancelled) * Provider: Severo Shah MD Date: 0 02/21/2025 Generated for Printing/Faxing/eTransmitting on:?06/03/2025 10:40 AM EST
--- OUTSIDE RECORDS SUMMARY | 2025-06-02 06:05 | XMS_ITS | Continuity of Care Document ---
Author Organization [facility] Address [address] [place] [address] Phone Care Team Providers Care Machine Design Checker Name Role Phone Halina Lowe MD Primary Care Provider Halina Lowe MD Attending Provider Dorota Loaiza CMA Attending Provider [facility] Thomas Hancock PhD Attending Provider [phone] Shonna Villeda APRN Attending Provider Care Teams Patient Care Team Team Status: Active Member Role/Relationship Status Dates Halina Lowe MD Primary Care Provider Active Visit Care Team Team Status: Active Member Role/Relationship Status Dates Halina Lowe MD Primary Care Provider Active Start: March 09, 2025 Halina Lowe MDAttending ProviderActiveStart: March 09, 2025 Visit Care Team [...] Start: March 21, 2025 End: March 21, 2025Chrissy Quan ProviderActiveStart: March 21, 2025 End: March 21, [...] 2025 End: April 21, 2025Shonna Villeda APRN [employer]-CAttending ProviderActive Start: April 21, 2025 End: April [...] May 02, 2025 End: May 02, 2025 Visit Care Team Team Status: Inactive Member Role/Relationship Status Dates Halina Lowe MD Primary Care Provider Active Start: May 08, 2025 End: May 08, 2025Chrissy Quan ProviderActiveStart: May 08, 2025 End: May 08, 2025 Patient Care Team Team Status: Inactive Member Role/Relationship Status Dates Halina Lowe MD Primary Care Provider Active Start: June 02, 2025 End: June 02, 2025Chrissy Quan ProviderActiveStart: June 02, 2025 End: June 02, 2025 Chief Complaint and Reason for Visit Chief Complaint Admit Date UA:Burning/Cloudy March 14, 2025 1:04pm Amb Documentation March 16, 2025 11:31am Wellness/TBH ER f/u March 21, 2025 1:01pm APPROVED AUTH #[id number]; ASSESSMENT Oc tober 2024 1:29pm APPROVED AUTH #[id number]; TESTING Octob er 2024 12:12pm UA:Frequency/Burning April 21, 2025 9:59am R30. April 21, 2025 1 0:22am Discuss Results (Dr. Alexander) May 02, 2025 9:47am [facility] F/U May 08, 2025 11:44am elbow pain + discuss labs June 02, 2025 10:18am Reason for Visit Admit Date UTI (urinary tract infection) March 14, 2025 [...] 2025 12 :12pm Moderate recurrent major depression Apro 2024 12:12pm Word finding difficulty April 19 12:12pm Lacunar infarction April 19, 2025 12 :12pm UTI (urinary tract infection) April 212024 9:59am Menopause May 02, 2025 9 :47am Mild neurocognitive disorder April 9:47am Moderate recurrent major depression Apro 2024 9:47am Mild neurocognitive disorder April 11:44am Prerenal azotemia May 08, 2025 1 1:44am Syncope, near May 08, 2025 1 1:44am RUQ pain June 02, 2025 10:18am Allergies, Adverse Reactions, Alerts Allergen Type Severity Reaction Last Updated Verified Status fesoterodine Allergy Unknown Hives May 10:41am Yes Active fluoxetine Allergy Unknown Hives June 02, 2025 10:41am Yes Active nitrofurantoin Allergy Unknown Comment:Sever e Diarrhea, diarrhea June 02, 2025 10:41am Yes Active penicillin G benzathine Allergy Unknown Hives June 02, 2025 10:41am Yes Active Penicillins Allergy Unknown Hives May 10:41am Yes Active Kshjcmu-GJB-AiU Reductase Inhibitor Allergy Unknown Hives May 10:41am Yes Active Antihistamine & Nasal Deconges Allergy Unknown Hives September 04, 2023 8:55am No Active DECONGESTANTS Allergy Unknown Hives September 042023 8:55am No Active Social History Smoking Status Status [...] Stat Depression with anxiety April 19, 2025 3:26pm Unkno wn Active RUQ pain June 02, 2025 10:54am Unknown Active Word finding difficulty April 19, 2025 3:26pm Unkno wn Active UTI (urinary tract infection) March 14, 2025 12:5 4pm Unknown Active Prerenal azotemia May 10, 2025 11:23am Unknown Active Medicare annual wellness vis it, subsequent March 26, 2025 5:02pm Unknown Active Mild late onset Alzheimer's dementia February 07, 2025 7 :05am Unknown Active Lacunar infarction February 07, 2025 3:45pm Unknown Active Screening mammogram for breast cancer September 03, 024 6:20pm Unknown Active Menopause May 02, 2025 9:31am Unknown Ac tive Hyperglyceridemia September 04, 2023 9:11am Unknown Active Influenza A August 18, 2024 11:32am Unknown A ctive Gout September 04, 2023 9:11am Unknown A ctive Postoperative bleeding from incision September 09 2:28pm Unknown Active CKD (chronic kidney disease) stage 4, GFR 15-29 ml/min September 04, 2023 9:10am Unknown Active Memory loss April 20, 2025 8:22pm Unknown Act tri Anxiety September 04, 2023 9:10am Unknown A ctive Dysuria March 11, 2024 8:47am Unknown Act tri Moderate anxiety April 20, 2025 8:22pm Unknown Active Mild neurocognitive disorder April 20, 2025 8:21pm Unknown Active Hypothyroidism September 04, 2023 9:11am Unknown Active Syncope, near May 10, 2025 11:23am Unknown Active 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 September 04, 2023 9:10am Un known Active Renal cyst September 16, 2023 5:34pm Unknown Activ e Restless leg syndrome September 04, 2023 9:11am Unkno wn Active Moderate recurrent major depression April 20, 2025 8:22pm Unknown Active Memory changes June 17, 2024 1:20pm Unknown Active CKD stage 3a, GFR 45-59 ml/min August 18, 2024 11:3 3am Unknown Active HTN (hypertension) September 04, 2023 9:11am Unknown Active Inactive/Resolved Problems Problem Diagnosis/Recorded Date Onset Date Stat us Hypercalcemia September 04, 2023 9:11am Unknown Resolved Medications Medication Status Dose Units Route Directions Qty Days Refills S tart Date Stop Date End Date Reason(s) Instructions Adherence Levothyroxine 75 mcg tablet Discontinued 0 .ROUTE.DJZIXZX570Rrj 2023 9:00amJuly 2023 7:33amTAKE 1 TABLET BY MOUTH EVERY MORNING ON AN EMPTY STOMACHAmlodipine 5 mg tabletDiscontinued0.ROUTE .JCMSTIJ2733Bffe 2023 1:29pmAugust 2023 4:46pmTAKE 1 AND 1/2 TABLETS BY MOUTH ONCE A DAYLevothyroxine 75 mcg tabletDiscontinued0.ROUTE.GPQWLTZ857Sslz 2023 7:33amSeptember 2023 10:20pmTAKE 1 TABLET BY MOUTH EVERY MORNING ON AN EMPTY STOMACHRopinirole 1 mg atzyjsMnxgfyfbazbo0WNLRMzfgg271Vgfsns 2023 8:34amDecember 2023 9:01amAmlodipine 5 mg tabletDiscontinued0.ROUTE .RTRONPQ1252Dxckzy 29th, 2024 4:46pmSeptember 2023 8:16amTAKE 1 AND 1/2 TABLETS BY MOUTH ONCE A DAYAmitriptyline 10 mg tabletDiscontinued0.ROUTE.COMPLEX 2023 9:09pmSeptember 2023 8:16amTAKE 1 TABLET BY MOUTH EVERYDAY AT BEDTIMELevothyroxine 88 mcg tabletDiscontinued0.ROUTE.VJQTHMM262 March 18, 2024 10:20pmSeptember 2023 8:16amTAKE 1 TABLET BY MOUTH EVERY MORNING ON AN EMPTY STOMACHLevothyroxine 88 mcg tabletDiscontinued0.ROUTE .MLCAEQC416Jfbsfqam 2nd, 2024 12:39pmFebruary 2024 3:15pmTAKE 1 TABLET BY MOUTH EVERY DAY IN THE MORNING ON AN EMPTY STOMACHRopinirole 1 mg tablet Discontinued0.ROUTE.ZPJPOJF064KpgmkiszJuly 11, 2024 9:01amJuly 2024 3:30pm TAKE 1 TABLET BY MOUTH DAILYLisinopril 20 mg tabletDiscontinued0.ROUTE.MHEERBX80 2024 2:50pmOctober 2024 11:20amTAKE 1 TABLET BY MOUTH EVERY DAYLevothyroxine 88 mcg tabletDiscontinued0.ROUTE.BGTGNXJ779Blcyekzp 17th, 2025 3:15pmAugust 2024 9:46amTAKE 1 TABLET BY MOUTH EVERY DAY IN THE MORNING ON AN EMPTY STOMACHRopinirole 1 mg tabletDiscontinued0.ROUTE.DZOAKBQ542Baif 7th, 2025 3:30pmSeptember 2024 12:39pmTAKE 1 TABLET BY MOUTH DAILYCiprofloxacin Hcl 250 mg nqapjdQuqqiblznkpp888NNDEZnocg wxyvn193Aqsy 2024 11:00pm March 14, 2025 12:35pmLevothyroxine 88 mcg tabletActive0.ROUTE.WGXJUBK318 February 17, 2025 9:46amTAKE 1 TABLET BY MOUTH EVERY DAY IN THE MORNING ON AN EMPTY STOMACHComplies with drug therapyDonepezil (Aricept) 5 mg obuggyBravwb7BE QIXupak573Nmjhzzwg 17th, 2025 1:21pmComplies with drug therapyBuspirone 5 mg zjdhqeKzjjeo0YUTPCwzfi jqari843NghgwfbbMay 31, 2025 9:38amComplies with drug therapyGemfibrozil 600 mg ivowgaBptyuf654IYYSZpbaeLik 14th, 2024 11:00pmComplies with drug therapyRopinirole 1 mg jdznclYghttzsrrohr5EVMGYqnvu927Wdr 15th, 2024 8:07amAugust 2023 8:34amLevothyroxine 75 mcg dqtlbaNmgzgceyzbfb2SXLKAQpqye September 04, 2023 12:00amMarch 2023 10:17amFreeTextSi tablet in the morning on an empty stomach Orally Once a day; Note: Source Status: Refill; Refills: 1; Qty: 90 Tablet; Provider: Mynor Meade ERopinirole 0.5 mg tablet Kyflzszwixhy0GUOUOYoohf at bedtimeFebruary 2023 12:00amMarch 2023 9:24amFreeTextSi tablet 1 to 3 hours before bedtime Orally Once a day; Note: Source Status: Refill; Provider: Mynor Meade EVitamin E (Dl, Acetate) 180 mg (400 unit) ciskoyrZqnapcmylrdp4UIFGFJfmsyYqncmjpe 2023 12:00amMarch 2023 10:17amFreeTextSi capsule Orally Once a day; Note: Source Status: Taking; Provider: Mynor Meade ( )Potassium Gluconate 595 mg (99 mg) ybadqfDfqyvuibfiis9TNTOFPaxqwObpbjndq 2023 12:00amMarch 2023 10:17amFreeTextSi tablet Orally Once a day; Note: Source Status: Taking; Provider: Mynor Meade ( )Ketoconazole 2 % creamDiscontinued1 APPLICTOPICALDailyFebruary 2023 12:00amMarch 2023 10:17amFreeTextSi application Externally Once a day; Note: Source Status: Taking; Provider: Mynor Meade ( )Estradiol 0.01 % (0.1 mg/gram) creamDiscontinued VAGINALAs DirectedFebruary 2023 12:00amMarc2023 10:17amFreeTextSig: as directed Vaginal; Note: Source Status: Taking; Provider: Mynor Meade ( )Gemfibrozil 600 mg tabletDiscontinuedMGPOFebruary 2023 12:00am September 17, 2023 10:17amFreeTextSi tablet 30 minutes before morning and evening meals Orally ONCE A DAY; Note: Source Status: Taking; Provider: Mynor Meade ( )Amitriptyline 10 mg bbtawsRtdaisnnhcma3HEYUJDtrhu at bedtimeFebruary 2023 12:00amMarc2023 10:17amFreeTextSig: TAKE 1 TABLET BY MOUTH EVERYDAY AT BEDTIME; Note: Source Status: Taking; Refills: 1; Qt y: 90 Tablet; Provider: Mynor Meade ( )Magnesium Oxide 400 mg (241.3 mg magnesium) tabletDiscontinuedMGPOAs Directedbruary 2023 12:00amMarc2023 10:17amFreeTextSig: as directed Orally; Note: Source Status: Taking; Provider: Mynor Meade ( )Methenamine Hippurate 1 gram osjymxPpljmxnyapzi3DBGOCJrsqfKnwbthuo 2023 12:00amMarch 2023 10:17amFreeTextSi tablet Orally ONCE A Day; Note: Source Status: Taking; Provider: Mynor Meade ( )Aspirin 81 mg tablet,delayed release (DR/EC)Ylalvigeiwte6IKQIRNqzzwCrekopjm 2023 12:00amMarc2023 10:17am FreeTextSi tablet Orally Once a day; Note: Source Status: Taking; Provider: Mynor Meade ( )Amlodipine 5 mg otzmnbRmqaopkvhxzs6QLBKEVxbnq September 04, 2023 12:00amMarc2023 9:37amFreeTextSi tablet Orally Once a day; Note: Source Status: Taking; Refills: 3; Qty: 90 Tablet; Provider: Mynor Meade ELisinopril 20 mg njnkmlNhoreljrchww32NZUSFpbvwKjpxfqgd 2023 12:00amMarch 2023 10:17amFreeTextSig: TAKE 1 TABLET BY MOUTH EVERY DAY; Note: Source Status: Taking; Refills: 3; Qty: 90 Tablet; Provider: Mynor Meade ( )Azithromycin 250 mg tabletDiscontinuedTABPODailyFebruary 2023 12:00amMarch 2023 9:21amFreeTextSig: as directed Orally 2 tabs po today, then 1 tab daily x 4 more days; Note: Source Status: Start; Refills: 0; Provider: Mynor Meade EMultivitamin (Daily Multi-Vitamin) dmcwdiSqjnte9CTLKL DailyFebruary 2023 12:00amComplies with drug therapyGlucosamine Sulfate (Glucosamine) 500 mg vdzztcRmgageudvjva517LLQVAehrzArfuncqe 2023 12:00am September 17, 2023 10:17amadminister with a mealCholecalciferol (Vitamin D3) 125 mcg (5,000 unit) fcvpnfpIznxgw379NHZZLVekbfAhrwryjl 2023 12:00amComplies with drug therapyOmega 8-Nkv-Nmd-Fish Oil (Fish Oil) 60-90-500 mg capsule Hgngeletjafy1XBWULBosgaHiztzlif 2023 12:00amMay 2023 7:58amVit C,M-Mm-Vjdss-Lutein-Zeaxan (Preservision Areds-2) 250-90-40-1 mg tablet,chewable Acibbc7HQKDWZhkvt dailyFebruary 2023 12:00amComplies with drug therapy Cranberry 500 mg udjxpggQagpwxkalbfb999SSKQNhfxm dailyFebruary 2023 12:00amMarc2023 10:17amadminister with mealsRopinirole 0.5 mg tablet Flzgxdjfpdeh9JKVCXpzin at bedtimeSelect [facility] 2023 9:22amMarch 2023 10:17am FreeTextSi tablet 1 to 3 hours before bedtime Orally Once a day; Note: Source Status: Refill; Provider: Mynor Meade EAmitriptyline 10 mg tablet Lavejdklehcl04HXUVZerwv at bedtimeSelect [facility] [place] 2023 10:12amAugust 2023 9:09pmAspirin 81 mg tablet,delayed release (DR/EC)Iztahtishwme62RBSEVohwhMfamp 2023 10:12amJuly 2024 5:26pmCranberry 500 mg twlainqMtxyzucsfjkj154AR POTwice dailySelect [facility]ty [facility] [place] 2023 10:13amSeptember 2023 8:14amEstradiol 0.01 % (0.1 mg/gram) creamActiveVAGINALAs [facility] 2023 10:13amComplies with drug therapyGemfibrozil 600 mg lixcpgZtbmmsarrhbk290VSVNCtkbs dailySelect [facility]ty [facility] [place] 2023 10:13amMay 2023 7:56amGlucosamine Sulfate (Glucosamine) 500 mg tablet Nqdoimaeyyak275MBLSWawczUcjqq 2023 10:14amJune 2024 2:36pm Ketoconazole 2 % belcwGbqlgj4KMVQENGRKGSCRNhpafThryk 2023 10:14amComplies with drug therapyLevothyroxine 75 mcg lobusmOlbswwhdtqnc95LJODZElxyfUzfrp 2023 10:14amMay 2023 9:00amLisinopril 20 mg yzkasoNnmmnfuvwspw36MDGKByqlj September 17, 2023 10:14amJanuary 2024 2:50pmMagnesium Oxide 400 mg (241.3 mg magnesium) wfigzkTkqveb093NBBITcawdPyomz 2023 10:15amComplies with drug therapyMethenamine Hippurate 1 gram mmumenZxnlrxfdkqjc6JOKOCuruqMwncx 2023 10:15amNovember 2024 10:42amPotassium Gluconate 595 mg (99 mg) tablet Itojks514HYLNLexdxOtxaf 2023 10:16amComplies with drug therapyRopinirole 0.5 mg btgxnnIqibgxzxwokw9HEVWQmgbh at bedtimeMarch 2023 10:16amMay 2023 7:58amVitamin E (Dl, Acetate) 180 mg (400 unit) yyorfliPohqtajznxnj356DHKH DailyMarch 2023 10:17amMay 2023 7:58amCranberry 500 mg capsuleActive 500MGPOOnceSeptember 2023 8:10amComplies with drug therapyGlucosamine Sulfate (Glucosamine) 500 mg rigznzZatvyr9361NHIOYvoowTqwp 2024 2:31pm Complies with drug therapyMethenamine Hippurate 1 gram xlvtdaXwngbq3JIMEUhkiz dailyNovember 2024 10:42amComplies with drug therapyOmega 6-Jtu-Gbo-Fish Oil (Fish Oil) 1,000 mg (120 mg-180 mg) ghpforoJklvek8MGCFDJoedtTwngvyyiy 2023 11:00pmComplies with drug therapyAmitriptyline 10 mg pakmupMriojldgnobj98KC PODailySeptember 2023 8:14amJune 2024 2:36pmAmlodipine 5 mg tablet Discontinued7.5MGPODailySeptember 2023 8:15amSeptember 2023 8:27am Levothyroxine 88 mcg dqzjqgDlnqsogkesgx13HIEDBGhghjKekultyma 2023 8:15am June 13, 2024 12:39pmAmlodipine 5 mg ssguavImpypqilfxlb10XYHSNcuhsNcofbizdc 2023 8:26amSeptember 2023 8:28amAmlodipine 10 mg tabletDiscontinued 28VAVWKoqdh618Wswdfknpd 2023 11:00pmOctober 2024 11:19am Amitriptyline 10 mg eoubjnSovvtr19HNNFDongvZpfe 2024 2:31pmComplies with drug therapyCiprofloxacin Hcl 500 mg tgmnxuVvucpuvcghof681VIUTDqmip481Wejfbt 2023 11:00pmSeptember 2023 9:31amOseltamivir (Tamiflu) 30 mg capsule Hgucjjpyjtab41WKPFXppru jmrhl4179Nzmriisw 2024 12:00amJune 2024 2:31pmClopidogrel 75 mg vutqpdPecqxa45BGWIWzwci94543Oorz 2024 11:00pm Lacunar cerebrovascular accident (CVA) Other cerebral infarction due to occlusion or stenosis of small arteryComplies with drug therapyCiprofloxacin Hcl 250 mg scnusiAcyuwtjwftca958XVXMQhgaj daily14 0September 2024 12:35pmOctober 2024 9:17amCiprofloxacin Hcl 250 mg ftxkmgVsxdwgqsvgsi257HSAOHqasc tlepe128Nhexhzi 2024 9:16amOctober 2024 9:10amDonepezil (Aricept) 5 mg zgrccmCyjibfktbrme2BETMZwjyk661Onxdykq 2024 11:00pmNovember 2024 1:22pmLosartan-Hydrochlorothiazide 100-12.5 mg qgfpavIgjkpb6XXMPSWhlopPlvwnhy 2024 11:00pmComplies with drug therapy Amlodipine 10 mg wwpsssCugsxh11SIIVNvbma014Srriavm 2024 11:19amComplies with drug therapyRopinirole 1 mg cfanksYrwaqoyizaby7LTXRQbrpaNmvrd 2023 12:00amMay 2023 8:08amAmlodipine 5 mg tabletDiscontinued7.5MGPODailyMarch 2023 9:37amMarch 2023 9:43amFreeTextSi tablet Orally Once a day; Note: Source Status: Taking; Refills: 3; Qty: 90 Tablet; Provider: Mynor Meade EAmlodipine 5 mg tabletDiscontinued7.8WGNDQpomf7959Lsxyq 2023 9:38amMarch 2023 9:45amFreeTextSi tablet Orally Once a day; Note: Source Status: Taking; Refills: 3; Qty: 90 Tablet; Provider: Mynor Meade EAmlodipine 5 mg tabletDiscontinued7.2MRVCJfkwx6600Enpbx 2023 9:45amMarch 2023 10:17am FreeTextSi tablet Orally Once a day; Note: Source Status: Taking; Refills: 3; Qty: 90 Tablet; Provider: Mynor Hopsonodipine 5 mg tabletDiscontinued7.5 MGPODailyMarch 2023 10:12amJune 2023 1:29pmSulfamethoxazole- Trimethoprim 800-160 mg klhrvxMkfeohannbmr5XAZGMVnsak ouywn783Vjfw 2024 11:00pmJuly 2024 12:26pmRopinirole 2 mg zuzzzyThccnx0ECKJIumtx961Whxasrnmk 2024 12:39pmComplies with drug therapyBuspirone 5 mg jcniqpMorqjaamrbaa9LQ POTwice szaxo777Gthkmnhar 2024 11:00pmNovember 2024 9:38am Immunizations Immunization Event Date Not Given Reason Dose Number [employer] Lot Number Reason(s) Given Vaccine Information Statement (VIS) Detail Administration Location COVID-19 mRNA-1273 (Moderna) July 30, 2020 COVID-19 mRNA-1273 (Moderna)August 30OVID-19 mRNA-1273 (Moderna) May 08, 2021influenza, unspecified formulationSeptember , 2015 influenza, unspecified formulationDecember 2016influenza, unspecified formulationNovember 2018influenza, unspecified formulationNovember 2019influenza, unspecified formulationOctober 2020influenza, unspecified formulationNovember neumococcal Polysacc. Vaccine, 23 valentOctober 2019Shingles (Zoster)August 22, 2019 Procedures Procedure Date Performed Status Urine Culture April 21, 2025 completed Relevant Diagnostic Tests and/or Laboratory Data Laboratory Results Test Collection Date/Time Result Date/Time Result Interpretation Reference Range Result Comment Performing Site Absolute Basophils (Manual) March 09, 2025 8:50pm March 09, 2025 8:50pm 0.08 10 3/uL 0.00-0.10HematocritAugust 2024 8:50pm39.5 %36.0-48.0Troponin I High SensitivityAugust 2024 8:50pmAugust 2024 8:50pm13.5 pg/mL4.0-51.3 CUT-OFF POINTS HAVE BEEN ESTABLISHED BASED [...] OTHER DIAGNOSTIC AND CLINICAL INFORMATION.Anion GapAugust 2024 8:50pmAugust 2024 8:50pm 14.4Urine ColorSept2024 12:31pmSeptember 2024 12:33pmyellowUrine ColorSept2024 12:46pmSeptember 2024 12:48pmyellowUrine Color April 21, 2025 9:02amOctober 2024 9:04amyellowBasophils %March 09, 2025 8:50pmAugust 2024 8:50pm1.0 %0.2-2.0HemoglobinAugust 2024 8:50pm13.1 g/dL12.0-16.0Albumin/Globulin RatioAu2024 8:50pmAugust 2024 8:50pm1.0Urine AppearanceSeptember 2024 12:31pmSeptember 2024 12:33pmverycloudyUrine AppearanceSept2024 12:46pmSeptember 2024 12:48pmclearUrine AppearanceOct2024 9:02amOctober 2024 9:04amcloudyEosinophils # (Manual)March 09, 2025 8:50pmAugust 2024 8:50pm0.16 10 3/uL0.00-0.70Mean Corpuscular HemoglobinAugus2024 8:50pm 30.0 pg26.7-34.0AlbuminAugust 2024 8:50pmAugust 2024 8:50pm3.6 g/dL 3.4-5.0Urine Specific GravitySept2024 12:31pmSeptember 2024 12:33pm1.005Urine Specific GravitySeptember 2024 12:46pmSeptember 2024 12:48pm1.000Urine Specific GravityOctober 2024 9:02amOctober 2024 9:04am1.010Eosinophils %March 09, 2025 8:50pmAugust 2024 8:50pm2.0 % 0.9-7.0Mean Corpuscular Hemoglobin ConcentAugust 2024 8:50pm33.2 g/dL 29.9-35.2Alkaline PhosphataseAugust 2024 8:50pmAugust 2024 8:39xe386 U/R29-959Aregl pHSept2024 12:31pmSeptember 2024 12:99ww5Btoqi pH March 21, 2025 12:46pmSeptember 2024 12:12tf7Kbinv pHOctober 2024 9:02amOctober 2024 9:04am6.5Lymphocytes # (Manual)March 09, 2025 8:50pmAugust 2024 8:50pm0.49 10 3/uLBelow low normal1.20-3.80Mean Corpuscular VolumeAugust 2024 8:50pm90.6 fL81.0-99.0Alanine Aminotransferase (ALT/SGPT)March 09, 2025 8:50pmAugust 2024 8:50pm21 U/B49-25Hrmmg Leukocyte EsteraseSeptember 2024 12:31pmSeptember 2024 12:33pm+++Urine Leukocyte EsteraseSept2024 12:46pmSeptember 2024 12:48pmnegativeUrine Leukocyte EsteraseOctober 2024 9:02amOctober 2024 9:04am++Lymphocytes %March 09, 2025 8:50pmAugust 2024 8:50pm6.0 % Below low digqhl63.5-60.0Mean Platelet VolumeAugust 2024 8:50pm11.1 fL 9.5-13.5Aspartate Amino Transf (AST/SGOT)March 09, 2025 8:50pmAugust 2024 8:50pm18 U/H03-98Jfmbc NitriteSeptember 2024 12:31pmSeptember 2024 12:33pmPositiveUrine NitriteSeptember 2024 12:46pmSeptember 2024 12:48pmNegativeUrine NitriteOctober 2024 9:02amOctober 2024 9:04am PositiveMonocytes # (Manual)March 09, 2025 8:50pmAugust 2024 8:50pm0.41 10 3/uL0.30-0.80Platelet CountAugust 2024 8:54xr098 10 3/xC897-872 BUN/Creatinine RatioAugus2024 8:50pmAugust 2024 8:50pm25.8Urine ProteinSeptember 2024 12:31pmSeptember 2024 12:33pmnegativeUrine ProteinSeptember 2024 12:46pmSeptember 2024 12:48pmnegativeUrine ProteinOctober 2024 9:02amOctober 2024 9:04am+Monocytes %March 09, 2025 8:50pmAugust 2024 8:50pm5.0 %1.7-12.0Red Blood CountAugust 2024 8:50pm4.36 10 6/uL4.20-5.40Blood Urea NitrogenAugust 2024 8:50pmAugust 2024 8:50pm42.0 mg/dLAbove high normal7.0-18.0Urine Glucose (UA)March 14, 2025 12:31pmSeptember 2024 12:33pmnegativeUrine Glucose (UA)March 21, 2025 12:46pmSeptember 2024 12:48pmnegativeUrine Glucose (UA)April 21, 2025 9:02amOctober 2024 9:04amnegativeSegmented Neutrophils # (Manual)March 09, 2025 8:50pmAugust 2024 8:50pm7.05 10 3/uLAbove high normal1.4-6.5Red Cell Distribution WidthAugust 2024 8:50pm 13.2 %11.0-15.0Calcium LevelAugust 2024 8:50pmAugust 2024 8:50pm8.8 mg/dL8.5-10.1Urine KetonesSeptember 2024 12:31pmSeptember 2024 12:33pm negativeUrine KetonesSeptember 2024 12:46pmSeptember 2024 12:48pm negativeUrine KetonesOctober 2024 9:02amOctober 2024 9:04amnegative Segmented NeutrophilsAugust 2024 8:50pmAugust 2024 8:50pm86.0Above high dxnqup14.0-75.0Corrected White Blood CountAugust 2024 8:50pm8.2 10 3/uL4.0-11.0Chloride LevelAugust 2024 8:50pmAugust 2024 8:96mv438 mmol/I09-667Benzn UrobilinogenSeptember 2024 12:31pmSeptember 2024 12:33pm0.2Urine UrobilinogenSeptember 2024 12:46pmSeptember 2024 12:48pm0.2Urine UrobilinogenOctober 2024 9:02amOctober 2024 9:04am 0.2Carbon Dioxide LevelAugust 2024 8:50pmAugust 2024 8:50pm25.5 mmol/L21.0-32.0Urine BilirubinSeptember 2024 12:31pmSeptember 2024 12:33pmnegativeUrine BilirubinSeptember 2024 12:46pmSeptember 2024 12:48pmnegativeUrine BilirubinOctober 2024 9:02amOctober 2024 9:04am negativeCreatinineAugust 2024 8:50pmAugust 2024 8:50pm1.63 mg/dL Above high normal0.55-1.02Urine Occult BloodSeptember 2024 12:31pmSeptember 2024 12:33pm+Urine Occult BloodSeptember 2024 12:46pmSeptember 2024 12:48pmnegativeUrine Occult BloodOctober 2024 9:02amOctober 2024 9:88dr4-92Isfqxjbbu GFR ()March 09, 2025 8:50pmAugust 2024 8:62wf52Fwrla low normal>=60 mL/min/1.73m 2Estimated GFR (Non- AmericanAugus2024 8:50pmAugust 2024 8:67mb25Ejexz low normal>=60 mL/min/1.73m 2GlobulinAugust 2024 8:50pmAugust 2024 8:50pm3.5 g/dL Glucose LevelAugust 2024 8:50pmAugust 2024 8:83oj937 mg/dLAbove high ugwkzf41-469Iefbxbvdf LevelAugust 2024 8:50pmAugust 2024 8:50pm3.9 mmol/L3.5-5.1Sodium LevelAugust 2024 8:50pmAugust 2024 8:22we946 mmol/F882-334Lcahb BilirubinAugust 2024 8:50pmAugust 2024 8:50pm0.5 mg/dL0.2-1.0Total ProteinAugust 2024 8:50pmAugust 2024 8:50pm7.1 g/dL6.4-8.2 Microbiology Results Procedure Source Result Collection Date/Time Result Date/Time Result Comment Performing Site Urine Culture Urine Klebsiella pneumoniae Octob er 2024 10:22am April 24, 2025 8:11am [facility] [id number] [address] [place] [id number] Vital Signs Vital Reading Result Reference Range Collection Date/Time Height 60 [in_i] March 21, 2025 12:33ukSbmsut27.58 kgSept2024 12:04pmHeart Rate85 /hfz92-774Exuajowba 9th, 2025 12:04pmBP Jkobwjpf489 mm[Hg]100-140September 2024 12:04pmBP Pxeyzgleu02 mm[Hg]60-100September 2024 12:04pmBMI (Body Mass Index)29.0 kg/d6Hmnpywwvq 2024 12:71nxEmaojd90 [in_i]May 02, 2025 9:27syCrasdu87.94 kgOctober 2024 9:08amHeart Rate76 /vey80-457Zbfgtwl 21st, 2025 9:15amBP Isrezjsh709 mm[Hg]100-140October 2024 9:15amBP Gjufisgjz09 mm[Hg]60-100October 2024 9:15amBMI (Body Mass Index)29.7 kg/m2 May 02, 2025 9:21kbJiklnh37 [in_i]May 08, 2025 11:04gmMqhiui24.26 kg May 08, 2025 11:01amHeart Rate78 /jjx83-377Sesdzdc 2024 11:01amBP Drygogis044 mm[Hg]100-140October 2024 11:25amBP Gajggfknv97 mm[Hg]60-100 May 08, 2025 11:25amBMI (Body Mass Index)29.4 kg/p0Qknfmja 2024 11:54ajFinsdi60 [in_i]June 02, 2025 10:16frTtodwh59.58 kgNov2024 10:34amHeart Rate72 /hma65-556JnromvupJune 02, 2025 10:34amOxygen saturation by Pulse rhgtguzu82 %95-100June 02, 2025 10:34amBP Lwwdlell131 mm[Hg] 100-140Nov2024 10:34amBP Gussbduqc68 mm[Hg]60-100November 2024 10:34amBMI (Body Mass Index)29.0 kg/v4SzoyjhniJune 02, 2025 10:34am Advance Directives Advance Directive Response Recorded Date/ Time Advance Directives No June 10:52am Insurance Providers Guarantor Ella Urena Address [address] [place] [address]Jjsttoe Info.Home Phone: Coverage Status Update:2024 Payer Group Member ID Coverage Type Subscriber Relationship to Subscriber Effective Date Expiration Date Medicare Id: [id number] Ruffing Id: [id number] [address] Home Phone: Email: [email or web address] Encounters Encounter Location(s) Arrival/Admit Date Discharge/Departure Date Discharge/Departure Disposition Provider(s) Non-patient / Non-visit -Located Within [facility] Professional [facility] A ugust 2024 9:50pm ULISSES Quaneparted Physician/Provider [facility]:04pm[facility] 2024 1:48pmDischarged to home care or self care (routine discharge)Alex Quan-[facility] 11:31amDorota Loaiza CMADeparted Physician/Provider Office [facility] 2024 1:01pmSeptember 2024 1:48pmDischarged to home care or self care (routine discharge)ULISSES Quaneparted Physician[facility] 1:29pmOctober 2024 2:06pmDischarged to home care or self care (routine discharge)Clarisse Conti PhDDeparted Physician/Provider [facility] 20[facility] 12:12pmOctober 2024 1:59pmDischarged to home care or self care (routine discharge)Clarisse Conti PhDDeparted Physician/Provider [facility] 2024 9:59amOctober 2024 10:04am Discharged to home care or self care (routine discharge)Shonna Villeda APRN CNPDeparted Referred-[facility] 10:22amOctober 2024 10:23amDischarged to home care or self care (routine discharge)Halina Lowe , ULISSESeparted Physician/Provider Office Visit-[facility] May 02, 2025 9:47amOctober 2024 10:34amDischarged to home care or self care (routine discharge)ULISSES Quaneparted Physician/Provider [facility] 2024 11:44amOctober 2024 12:27pmDischarged to home care or self care (routine discharge)ULISSES Quaneparted Physician/Provider [facility] 10:18amNovember 2024 11:04amDischarged to home care or self care (routine discharge)Halina Lowe MD Recent Diagnosis Onset Date Admit Date UTI (urinary tract infection) Unknown Se pt2024 [...] May 02 9:47am Mild neurocognitive disorder Unknown Apr 9:47am Moderate recurrent major depression Unknown May 02, 2025 9:47am Mild neurocognitive disorder Unknown Apr 11:44am Prerenal azotemia Unknown May 08, 2025 11:44am Syncope, near Unknown May 08 11:44am RUQ pain Unknown June 02, 2 025 10:18am Assessments Diagnosis Onset Date Resolution Status Admit Date UTI (urinary tract infection) acuteSeptember 2024 1:04pmAnxietyacuteSeptember 2024 1:01pmHTN (hypertension)acuteSeptember 2024 1:01pmMedicare annual wellness visit, subsequentacuteSeptember [...] disorderacuteOctober 2024 9:47amModerate recurrent major depressionacuteOctober 2024 9:47amMild neurocognitive disorderacuteOctober 2024 11:44amPrerenal azotemiaacuteOctober 2024 11:44amSyncope, nearacuteOctober 2024 11:44amRUQ painacuteNovember 2024 10:18am Plan of Treatment Author Shonna Villeda [facility] 2024 9:41am Reviewed results of urine dipstick with patient, [...] if this would occur. Author Halina Lowe [facility] 2024 11:52amDEXA faxed and order given to pt. Agrees to start aricept at lowest dose. Will also review w Neurology next month. States her mood is presently good on present rx's. She is unsure if she is still taking buspar because her daughter has her med list. Does not endorse symptoms of anxiety or depression today. Author Halina Lowe [facility] 2024 11:25amStart losartan-hctz - 100 - 12.5 Stop lisinopril-hctz 20-25 Stay hydrated. Check bps at home. Continue good hydration. Recheck labs in 3 months. Has continued aricept at lowest dose. Will also review w Neurology next month. Author Halina Lowe [facility] 2024 5:06pmPt agrees to referral to Neuropsychiatry for further [...] XR dexa axial skeleton May 02, 2025 9:30am US gall bladderJune 02, 2025 10:54am Future Visits Future appointment information is unavailable Future Procedures Future procedure information is unavailable Future Medications Future medication information is unavailable Patient Instructions Patient instructions are unavailable
--- NOTE | 2025-06-03 | US_ITS ---
[address] [address] Patient Name: THANIA FRANK MRN: [id number] date: 1940 Sex: F Assigned Patient Location: US Current Patient Location: US Accession/Order Number: [id number] Exam Date: 06/03/2025 10:40 Report Date: 06/03/2025 11:34 At the request of: DAVID PIKE MD Procedure: US right upper quadrant LIMITED ABDOMINAL ULTRASOUND: CLINICAL HISTORY: Right upper quadrant pain R10.11 COMPARISON: None TECHNIQUE: Grayscale and color Doppler images of the right upper quadrant organs were obtained. FINDINGS: Pancreas: Visualized portions appear unremarkable. Liver: Unremarkable. Gallbladder: Unremarkable. CBD: 1.1 mm RT KIDNEY: Renal cysts one of which appears to contain a stone measuring 1 cm. No hydronephrosis. US/US right upper quadrant IMPRESSION: NO ACUTE FINDINGS. RIGHT RENAL CYSTS, ONE OF WHICH APPEARS TO CONTAIN A STONE MEASURING 1 CM.. Impression dictated by: Holland Lopez Jr., D.O. 06/03/2025 11:34 AM Dictation Location: [place] [address] Electronically authenticated by: [id number] Y Date: 06/03/2025 11:34
--- OUTSIDE RECORDS SUMMARY | 2025-06-03 10:41 | XMS_ITS | Clinical Summary ---
Author Organization [facility] Address [address], [address] [place] [address] Care Team Providers Care Pick Remover Name Role Phone Halina Lowe MD Primary Care Provider [phone] Allergies Active AllergyReactionsCriticalityNoted DateCommentsAntihistamines, Loratadine-RtjzKqkuUjs84/25/1617QppplWipjNlk09/25/2019 decongestants Zahiztzfyng61/25/2019 Medications MedicationSigDispense QuantityRefillsLast FilledStart DateEnd DateStatus levothyroxine [...] 1 tablet by mouth daily (with breakfast)Active [place]-3 Fatty Acids (FISH OIL) 1200 MG CPDR [...] MG tablet Take 1 tablet by mouth /12/2025Active busPIRone (BUSPAR) 5 MG tablet Take 1 tablet by mouth 2 times daily5Active donepezil (ARICEPT) 5 MG tablet Take 1 tablet by mouth rovgjwb26/21/2025Active rOPINIRole (REQUIP) 2 MG tablet Take 1 tablet by mouth /09/2025Active losartan-hydroCHLOROthiazide (HYZAAR) 100-12.5 MG per tablet Take 1 tablet by mouth daily 30 tablet 5Active lisinopril-hydrochlorothiazide (PRINZIDE;ZESTORETIC) 20-25 MG per tablet Take 2 tablets by mouth daily05/06/2025Discontinued(Stop Taking at Discharge) aspirin 81 MG tablet Take 81 mg by mouth daily05/06/2025Discontinued(LIST CLEANUP) Active Problems ProblemNoted DateDiagnosed AglmWoniyqbag33/25/2025Near syncope suspect prerenal 05/06/2025Prerenal azotemia likely from HCTZ12462Patjiqoxkxfn82/26/2019 Viyqbglgjaqi25/26/6891Gobgiznwlnr41/26/2019Syncope and vauenlog25/25/2019 Encounters DateTypeDepartmentCare FurpQrfoqrkwgio10/24/2025 9:24 PM EDT - 05/06/2025 1:54 PM EDTHospital Encounter [facility] [address] [place], [place] [id number] Trinidad Marshall, DO Mai, Jarret De La Torre MD Congestive heart failure, unspecified HF chronicity, unspecified heart failure type (HCC) (Primary Dx); Elevated troponin; Dizziness Discharge Disposition: Home or Self Care05/05/2025Travelfrom Last 3 Months Social History Tobacco UseTypesPacks/DayYears UsedDateSmoking Tobacco: NeverAlcohol UseStandard Drinks/WeekCommentsNever0 (1 standard drink = 0.6 oz pure alcohol)AUDIT-CAnswer Date RecordedFrequency of Alcohol RcrbxwdxsnnXweew24/25/2019Average Number of DrinksNot on file10/04/2018Frequency of Binge [...] were you homeless or living in a retirement (including now)?No05/06/2025UDIT-CAnswerDate RecordedQ1: How often do you [...] Safety Domain Source: IP Abuse ScreeningAnswerDate RecordedPhysical prrijHehphl35/25/2025Verbal abuseDenies 05/06/2025Emotional kfaqoNpdzdl36/25/2025Financial pvtdsQvoxih13/25/2025Sexual absrdYrjgjc95/25/2025CommentsUnknownSex and Gender InformationValueDate RecordedSex Assigned at BirthNot on fileLegal HusUgymit80/12/2013 6:51 AM EST Gender IdentityNot on fileSexual OrientationNot on file Last Filed Vital Signs Vital SignReadingTime TakenCommentsBlood Doocucjh665/801 6:51 AM EDT Etyrc164705/06/2025 6:51 AM GWIStgrfvpkxxh97.7 ??C (98.1 ??F)05/05/2025 9:26 PM EDTRespiratory Bdsr3969 7:19 AM EDTOxygen Vdqctcpxoi42%05/06/2025 7:19 AM EDTInhaled Oxygen Concentration--Ewycvx96.4 kg (153 lb)05/06/2025 7:19 AM KNGTorime672.4 cm (5')05/06/2025 7:19 AM EDTBody Mass Index29.8805/06/2025 7:19 AM EDT Plan of Treatment Health MaintenanceDue DateLast HuhsShlguotiAjvosc40/08/1950Depression Screen 2DTaP/Tdap/Td vaccine (1 - Tdap)1959Pneumococcal 50+ [...] topic Procedures Procedure NamePriorityDate/TimeAssociated DiagnosisCommentsPULSE OXIMETRY SPOT WFFAWYihgawq68/25/2025 3:16 AM VIIUTFQQPBERTOV28/24/2025 10:[address] CHEST PULMONARY EMBOLISM W GDPJQRBBWAMA87/24/2025 10:[address] HEAD WO LVYQHPWKPCGC54/24/2025 10:38 PM EDT CTA HEAD NECK W WCCYODCPAXXT75/24/2025 10:29 PM EDT MICROSCOPIC FAZDAKTSQZWoqtohm63/24/2025 10:20 PM EDT URINALYSIS WITH REFLEX TO NQEDZEPSHZD76/24/2025 10:20 PM EDT EKG 12-TLEZOpxzkde60/24/2025 9:28 PM EDT D-DIMER, YXXHCRDALNREVZZG70/24/2025 9:15 PM EDT BRAIN NATRIURETIC KFCSJTPSLFM56/24/2025 9:15 PM EDT JIRUAZVWCYWE82/24/2025 9:15 PM EDT BASIC METABOLIC HINVNMIES41/24/2025 9:15 PM EDT CBC WITH AUTO SADIJUGUZIUSJGKJ93/24/2025 9:15 PM EDT from Last 3 Months Results * (ABNORMAL) Troponin (05/05/2025 10:55 PM EDT) Only the most recent of2 resultswithin the time period is included. ComponentValueRef RangeTest MethodAnalysis TimePerformed AtPathologist Signature Troponin, High Swpsqnayerk36(H)0 - 14 ng/L1 10:55 PM [facility] LABComment:High Sensitivity Troponin values cannot be compared with other Troponin methodologies.Specimen (Source)Anatomical Location / LateralityCollection Method / VolumeCollection TimeReceived TimeBloodBLOOD SPECIMEN / Ilwyaxk4205/05/2025 10:55 PM EDT1 11:00 PM EDT Narrative Authorizing ProviderResult TypeResult StatusChtosin Marshall DOCHEMISTRY ORDERABLESFinal ResultPerforming OrganizationAddressCity/State/ZIP CodePhone Number [facility] [address] [place] [id number], [facility] [phone] * CT CHEST PULMONARY EMBOLISM W CONTRAST (05/05/2025 10:38 PM EDT)Anatomical RegionLateralityModalityChestComputed TomographySpecimen (Source)Anatomical Location / LateralityCollection Method / VolumeCollection TimeReceived Time 05/05/2025 11:14 PM EDT Addenda Addendum by Rhett Grijalva MD on 05/15/2025 4:22 PM EST ADDENDUM: Correction: Small segmental filling defects are noted on the left and possibly the right. The findings were sent to the Radiology Results Communication Center at 4:17 pm on 05/15/2025 to be communicated to a licensed caregiver. Impressions 05/05/2025 11:18 PM EDT 1. No [...] granulomatous disease. Authorizing ProviderResult TypeResult StatusChtosin Marshall [facility] CT ORDERABLESEdited Result - Final * CT Head WO Contrast (05/05/2025 10:38 [...] shift. No abnormal extra-axial fluid collection. ??The sacnhes-white differentiation is maintained without evidence of an [...] intracranial abnormality. Authorizing ProviderResult TypeResult StatusChtosin Marshall [facility] CT ORDERABLESFinal Result * CTA HEAD [...] ??Bilateral posterior communicating arteries are present. ??The catalyst operator gasoline are patent to the extent visualized. ??No [...] surgical consultation. Authorizing ProviderResult TypeResult StatusChtosin Marshall DOIMG CT ORDERABLESFinal Result * Urinalysis with Reflex to Culture (05/05/2025 10:20 PM EDT)ComponentValueRef RangeTest MethodAnalysis TimePerformed AtPathologist SignatureColor, UAYellow Taoazn5905/05/2025 10:20 PM [facility] LABTurbidity UAClear Clear05/05/2025 10:20 PM [facility] LABGlucose, Ur NEGATIVENEGATIVE mg/dL05/05/2025 10:20 PM [facility] Bilirubin, QjvcpWSIGRYLQCHEUBEWR02/24/2025 10:20 PM [facility] LABKetones, UrineNEGATIVENEGATIVE mg/dL05/05/2025 10:20 PM [facility] LABSpecific [place], UA1.0201.010 - 1.3557205/05/2025 10:20 PM [facility] LABUrine HgbNEGATIVENEGATIVE 05/05/2025 10:20 PM [facility] LABpH, Urine6.05.0 - 9.0 05/05/2025 10:20 PM [facility] LABProtein, UANEGATIVE NEGATIVE mg/dL05/05/2025 10:20 PM [facility] Urobilinogen, UrineNormal0.0 - 1.0 EU/dL05/05/2025 10:20 PM [facility] LABNitrite, IkqyxLVBKSKAINUFSRPEQ52/24/2025 10:20 PM [facility] LABLeukocyte Esterase, SspueQPAZBCZTBPLAMDAJ17/24/2025 10:20 PM [facility] LABSpecimen (Source)Anatomical Location / LateralityCollection Method / VolumeCollection TimeReceived Time Urine05/05/2025 10:20 PM EDT1 10:24 PM EDT Narrative Authorizing ProviderResult TypeResult StatusChtosin Marshall DOUR[facility] ORDERABLES Final ResultPerforming OrganizationAddressCity/State/ZIP CodePhone Number [facility] [address] [place] [address] * (ABNORMAL) Microscopic Urinalysis (05/05/2025 10:20 PM EDT)ComponentValueRef RangeTest MethodAnalysis TimePerformed AtPathologist SignatureWBC, UA2 TO 50 - 5 /HPF05/05/2025 10:20 PM [facility] LABRBC, UANone0 - 2 /HPF05/05/2025 10:20 PM [facility] LABEpithelial Cells, UA2 TO 50 - 25 /HPF05/05/2025 10:20 PM [facility] Bacteria, UATRACE(A)None05/05/2025 10:20 PM [facility] LABSpecimen (Source)Anatomical Location / LateralityCollection Method / Volume Collection TimeReceived Time05/05/2025 10:20 PM EDT1 10:24 PM EDT Narrative Authorizing ProviderResult TypeResult StatusChrisbrittany PARK ORDERABLES Final ResultPerforming OrganizationAddressCity/State/ZIP CodePhone Number [facility] [address] [place] [address] * EKG 12 Lead (05/05/2025 9:28 PM EDT)ComponentValueRef RangeTest MethodAnalysis TimePerformed AtPathologist SignatureVentricular Jplc58POXNCPQ [facility] Atrial Jddy55NKMMMVP [facility] RADIOLOGYP-R Wrcfaooi530crXKWD [facility] RADIOLOGYQRS Rzkrpmwn091jrYSIS [facility] RADIOLOGYQ-T Mhdddgwx491xzXWIM [facility] RADIOLOGYQTc Calculation (Bazett)454msMHPN [facility] RADIOLOGYP Hnxu51rqqjbutPABQ [facility] RADIOLOGYR [place]-2degreesMHPN [facility] RADIOLOGYT Ezrj215fybhogkCPGG [facility] RADIOLOGYSpecimen (Source)Anatomical Location / LateralityCollection Method / VolumeCollection TimeReceived Time05/05/2025 9:28 PM EDT Narrative MH[facility] - 05/07/2025 12:00 PM EDT Normal [...] MARTÍNEZ ORDERABLES Final ResultPerforming OrganizationAddressCity/State/ZIP CodePhone Number [facility] * CBC with Auto Differential (05/05/2025 9:15 PM EDT)ComponentValueRef RangeTest MethodAnalysis TimePerformed AtPathologist SignatureWBC8.03.5 - 11.3 k/uL 05/05/2025 9:15 PM [facility] LABRBC4.533.95 - 5.11 m/uL 05/05/2025 9:15 PM [facility] FQFPylztugyoq01.811.9 - 15.1 g/dL05/05/2025 9:15 PM [facility] DOPXjchrfypzv79.5 36.3 - 47.1 %05/05/2025 9:15 PM [facility] QSZEDT27.482.6 - 102.9 fL05/05/2025 9:15 PM [facility] ZZUIYD48.525.2 - 33.5 pg05/05/2025 9:15 PM [facility] AWKMMXK46.128.4 - 34.8 g/dL05/05/2025 9:15 PM [facility] YXNIAP72.711.8 - 14.4 %05/05/2025 9:15 PM [facility] IZVRrnqweudw969840 - 453 k/uL05/05/2025 9:15 PM [facility] LOHEDK69.78.1 - 13.5 fL05/05/2025 9:15 PM [facility] LABNRBC Automated0.0 0.0 per 100 WBC05/05/2025 9:15 PM [facility] Neutrophils %5936 - 65 %05/05/2025 9:15 PM [facility] Lymphocytes %3024 - 43 %05/05/2025 9:15 PM [facility] Monocytes %73 - 12 %05/05/2025 9:15 PM [facility] Eosinophils %31 - 4 %05/05/2025 9:15 PM [facility] Basophils %10 - 2 %05/05/2025 9:15 PM [facility] Immature Granulocytes %00 %05/05/2025 9:15 PM [facility] LABNeutrophils Absolute4.701.50 - 8.10 k/uL05/05/2025 9:15 PM [facility] LABLymphocytes Absolute2.381.10 - 3.70 k/uL05/05/2025 9:15 PM [facility] LABMonocytes Absolute0.580.10 - 1.20 k/uL 05/05/2025 9:15 PM [facility] LABEosinophils Absolute0.26 0.00 - 0.44 k/uL05/05/2025 9:15 PM [facility] Basophils Absolute0.050.00 - 0.20 k/uL05/05/2025 9:15 PM [facility] LABImmature Granulocytes Absolute<0.030.00 - 0.30 k/uL 05/05/2025 9:15 PM [facility] LABSpecimen (Source) Anatomical Location / LateralityCollection Method / VolumeCollection Time Received TimeBloodBLOOD SPECIMEN / Tsqwong1805/05/2025 9:15 PM EDT10/ 9:38 PM EDT Narrative Authorizing ProviderResult TypeResult StatusChtosin Marshall DOHEMATOLOGY ORDERABLESFinal ResultPerforming OrganizationAddressCity/State/ZIP CodePhone Number [facility] [address] [phone] * (ABNORMAL) D-Dimer, Quantitative (05/05/2025 9:15 PM EDT)ComponentValueRef RangeTest MethodAnalysis TimePerformed AtPathologist SignatureD-Dimer, Quant 3.18(H)0.00 - 0.59 ug/mL FEU1 9:15 PM [facility] LABComment: ? When combined with a [...] / Volume Collection TimeReceived TimeBloodBLOOD SPECIMEN / Xwjoouh4205/05/2025 9:15 PM EDT 05/05/2025 9:38 PM EDT Narrative Authorizing ProviderResult TypeResult StatusChtosin Marshall DOHEMATOLOGY ORDERABLESFinal ResultPerforming OrganizationAddressCity/State/ZIP CodePhone Number [facility] [address] [place], [place] [address] [phone] * (ABNORMAL) Brain Natriuretic Peptide (05/05/2025 9:15 PM EDT)ComponentValueRef RangeTest MethodAnalysis TimePerformed AtPathologist SignatureNT Pro-JZI078(H) 0 - 450 pg/mL05/05/2025 9:15 PM [facility] LABSpecimen (Source)Anatomical Location / LateralityCollection Method / VolumeCollection TimeReceived TimeBloodBLOOD SPECIMEN / Xpahjbw8205/05/2025 9:15 PM EDT1 9:38 PM EDT Narrative Authorizing ProviderResult TypeResult StatusChtosin Marshall DOCHEMISTRY ORDERABLESFinal ResultPerforming OrganizationAddressCity/State/ZIP CodePhone Number [facility] [address] [phone] * (ABNORMAL) Basic Metabolic Panel (05/05/2025 9:15 PM EDT)ComponentValueRef RangeTest MethodAnalysis TimePerformed AtPathologist MneksfpztYmmkyw091945 - 145 mmol/L1 9:15 PM [facility] LABPotassium4.0 3.7 - 5.3 mmol/L1 9:15 PM [facility] LABChloride 91588 - 107 mmol/L1 9:15 PM [facility] FWFPA746 20 - 31 mmol/L1 9:15 PM [facility] LABAnion Gap 129 - 16 mmol/L1 9:15 PM [facility] LABGlucose 104(H)74 - 99 mg/dL05/05/2025 9:15 PM [facility] DEHRCG22 (H)8 - 23 mg/dL05/05/2025 9:15 PM [facility] Creatinine1.6(H)0.50 - 0.90 mg/dL05/05/2025 9:15 PM [facility] LABEst, Glom Filt Rate33(L)>60 mL/min/1.51s62605/05/2025 9:15 PM EDT [facility] LABComment: ? These results are not [...] tubular secretion. BUN/Creatinine Ratio23(H) - 9:15 PM [facility] LABCalcium9.78.6 - 10.4 mg/dL05/05/2025 9:15 PM [facility] LABSpecimen (Source)Anatomical Location / LateralityCollection Method / VolumeCollection TimeReceived TimeBloodBLOOD SPECIMEN / Jjhnixn9905/05/2025 9:15 PM EDT1 9:38 PM EDT Narrative Authorizing ProviderResult TypeResult StatusChtosin Marshall DOCHEMISTRY ORDERABLESFinal ResultPerforming OrganizationAddressCity/State/ZIP CodePhone Number [facility] [address] [place] [address], [facility] [phone] from Last 3 Months Insurance Advance Directives * Full Code (Latest Code Status on File) Date ActivatedDate FkifxqibykaScuzdmwu95/25/2025 3:16 AM05/06/2025 3:59 PM * Full Code Date ActivatedDate InactivatedComments10/04/2018 10:25 PM10/05/2018 4:45 PM Care Teams Team MemberRelationshipSpecialtyStart DateEnd Date Halina Lowe MD PCP - GeneralFamily Medicine10/04/18
--- OUTSIDE RECORDS SUMMARY | 2025-06-03 10:41 | XMS_ITS | Continuity of Care Document ---
Author Organization [facility] Address [address] [place] [address] Phone Care Team Providers Care Associate Professor Of Engineering Name Role Phone Halina Lowe MD Primary Care Provider Halina Lowe MD Attending Provider [phone] Dorota Loaiza CMA Attending Provider [facility] Thomas Hancock PhD Attending Provider Shonna Villeda APRN Attending Provider Care Teams [...] 2025 End: April 21, 2025Shonna Villeda APRN IRRIGATOR GRAVITY FLOW-CAttending ProviderActive Start: April 21, 2025 End: April [...] f/u March 21, 2025 1:01pm APPROVED AUTH #[id number]; ASSESSMENT Oc tober 2024 1:29pm APPROVED AUTH #[id number]; TESTING Octob er 2024 12:12pm UA:Frequency/Burning April 21, 2025 9:59am R30. April 21, 2025 1 0:22am Discuss Results (Dr. Alexander) May 02, 2025 9:47am [facility] F/U May 08, 2025 11:44am elbow pain [...] Allergy Unknown Hives May 10:41am Yes Active Qhqrdpe-GYF-CuI Reductase Inhibitor Allergy Unknown Hives May 10:41am [...] Adherence Levothyroxine 75 mcg tablet Discontinued 0 .ROUTE.KWVFYPB182Zdv 2023 9:00amJuly 2023 7:33amTAKE 1 TABLET BY MOUTH EVERY MORNING ON AN EMPTY STOMACHAmlodipine 5 mg tabletDiscontinued0.ROUTE .PWMDBWU6887Aqbf 2023 1:29pmAugust 2023 4:46pmTAKE 1 AND 1/2 TABLETS BY MOUTH ONCE A DAYLevothyroxine 75 mcg tabletDiscontinued0.ROUTE.PFOIQHU289Tbxm 2023 7:33amSeptember 2023 10:20pmTAKE 1 TABLET BY MOUTH EVERY MORNING ON AN EMPTY STOMACHRopinirole 1 mg cosrniRpekbpddyvjk1ATTAFocrr509Vlijgs 2023 8:34amDecember 2023 9:01amAmlodipine 5 mg tabletDiscontinued0.ROUTE .LGWBQSL3212Iafrsd 29th, 2024 4:46pmSeptember 2023 8:16amTAKE 1 AND 1/2 TABLETS BY MOUTH ONCE A DAYAmitriptyline 10 mg tabletDiscontinued0.ROUTE.COMPLEX 2023 9:09pmSeptember 2023 8:16amTAKE 1 TABLET BY MOUTH EVERYDAY AT BEDTIMELevothyroxine 88 mcg tabletDiscontinued0.ROUTE.BZTVOCL433 March 18, 2024 10:20pmSeptember 2023 8:16amTAKE 1 TABLET BY MOUTH EVERY MORNING ON AN EMPTY STOMACHLevothyroxine 88 mcg tabletDiscontinued0.ROUTE .RZELNQE857Ucttnvhx 2nd, 2024 12:39pmFebruary 2024 3:15pmTAKE 1 TABLET BY MOUTH EVERY DAY IN THE MORNING ON AN EMPTY STOMACHRopinirole 1 mg tablet Discontinued0.ROUTE.WRHEAMP937QkwgjtdtJuly 11, 2024 9:01amJuly 2024 3:30pm TAKE 1 TABLET BY MOUTH DAILYLisinopril 20 mg tabletDiscontinued0.ROUTE.OJJANXQ11 2024 2:50pmOctober 2024 11:20amTAKE 1 TABLET BY MOUTH EVERY DAYLevothyroxine 88 mcg tabletDiscontinued0.ROUTE.YPQUUKE703Vlhavvlb 17th, 2025 3:15pmAugust 2024 9:46amTAKE 1 TABLET BY MOUTH EVERY DAY IN THE MORNING ON AN EMPTY STOMACHRopinirole 1 mg tabletDiscontinued0.ROUTE.RFTRATA695Pwar 7th, 2025 3:30pmSeptember 2024 12:39pmTAKE 1 TABLET BY MOUTH DAILYCiprofloxacin Hcl 250 mg vfjjqkVxxggafiihuy678YDBMDpxeq oamqg693Eydp 2024 11:00pm March 14, 2025 12:35pmLevothyroxine 88 mcg tabletActive0.ROUTE.ALVOHLE441 February 17, 2025 9:46amTAKE 1 TABLET BY MOUTH EVERY DAY IN THE MORNING ON AN EMPTY STOMACHComplies with drug therapyDonepezil (Aricept) 5 mg otsfcaIsqdkj1CN QJXedeh688Iykynqui 17th, 2025 1:21pmComplies with drug therapyBuspirone 5 mg iwitrmOqmuzs5QQIOJpebn tvrhj571PfqqjuclMay 31, 2025 9:38amComplies with drug therapyGemfibrozil 600 mg jcjloePfcpab149LCSBGfqroBqr 14th, 2024 11:00pmComplies with drug therapyRopinirole 1 mg krxhcsNavswbutjqzh8ZASCNvcrj685Cgr 15th, 2024 8:07amAugust 2023 8:34amLevothyroxine 75 mcg qskxgaKvjguwnaghta9REJQMFjzee September 04, 2023 12:00amMarch 2023 10:17amFreeTextSi tablet in the morning on an empty stomach Orally Once a day; Note: Source Status: Refill; Refills: 1; Qty: 90 Tablet; Provider: Mynor Meade ERopinirole 0.5 mg tablet Lgreahzaokye4ICEBAFimvp at bedtimeFebruary 2023 12:00amMarch 2023 9:24amFreeTextSi tablet 1 to 3 hours before bedtime Orally Once a day; Note: Source Status: Refill; Provider: Mynor Meade EVitamin E (Dl, Acetate) 180 mg (400 unit) ukuzloyZsnpsydgrjua2HTUFXAyhxoBjtpkqlo 2023 12:00amMarch 2023 10:17amFreeTextSi capsule Orally Once a day; Note: Source Status: Taking; Provider: Mynor Meade ( )Potassium Gluconate 595 mg (99 mg) wrynjhEirlvwhaenax5HSACVSalwaIfdfeifs 2023 12:00amMarch 2023 10:17amFreeTextSi tablet Orally Once [...] Provider: Mynor Meade ( )Amitriptyline 10 mg euukewGrarnzacejjl6DVAGQBxvva at bedtimeFebruary 2023 12:00amMarc2023 10:17amFreeTextSig: TAKE 1 TABLET BY MOUTH EVERYDAY AT BEDTIME; Note: Source Status: Taking; Refills: 1; Qt y: 90 Tablet; Provider: Mynor Meade ( )Magnesium Oxide 400 mg (241.3 mg magnesium) tabletDiscontinuedMGPOAs Directedbruary 2023 12:00amMarc2023 10:17amFreeTextSig: as directed Orally; Note: Source Status: Taking; Provider: Mynor Meade ( )Methenamine Hippurate 1 gram qmzguxCvdzwauzpatm8EUNQAJlbvjEykmpfrt 2023 12:00amMarch 2023 10:17amFreeTextSi tablet Orally ONCE A Day; Note: Source Status: Taking; Provider: Mynor Maede ( )Aspirin 81 mg tablet,delayed release (DR/EC)Gcshvqpvboko0XJGPGFonejSfaffuxz 2023 12:00amMarc2023 10:17am FreeTextSi tablet Orally Once a day; Note: Source Status: Taking; Provider: Mynor Meade ( )Amlodipine 5 mg yfhgdhXaqndtlnyaxy9UQCTNYwavu September 04, 2023 12:00amMarc2023 9:37amFreeTextSi tablet Orally Once a day; Note: Source Status: Taking; Refills: 3; Qty: 90 Tablet; Provider: Mynor Meade ELisinopril 20 mg vuaxkvAkpqpyajmbnj21SMWBOkxyzWmfelhkc 2023 12:00amMarch 2023 10:17amFreeTextSig: TAKE 1 TABLET BY MOUTH EVERY DAY; Note: Source Status: Taking; Refills: 3; Qty: 90 Tablet; Provider: Mynor Meade ( )Azithromycin 250 mg tabletDiscontinuedTABPODailyFebruary 2023 12:00amMarch 2023 9:21amFreeTextSig: as directed Orally 2 tabs po today, then 1 tab daily x 4 more days; Note: Source Status: Start; Refills: 0; Provider: Mynor Meade EMultivitamin (Daily Multi-Vitamin) dhtkodCktyym8GILBG DailyFebruary 2023 12:00amComplies with drug therapyGlucosamine Sulfate (Glucosamine) 500 mg wmfbduXmenwvorwyog363THLPEmomoVbymfxyd 2023 12:00am September 17, 2023 10:17amadminister with a mealCholecalciferol (Vitamin D3) 125 mcg (5,000 unit) gwdzcqkRffsxa637RTMOPOinpdOpjtxdvw 2023 12:00amComplies with drug therapyOmega 7-Trx-Cbm-Fish Oil (Fish Oil) 60-90-500 mg capsule Woejzffqojlf2XCWVNXrdlwNbmgnzvn 2023 12:00amMay 2023 7:58amVit C,G-Yf-Aetxe-Lutein-Zeaxan (Preservision Areds-2) 250-90-40-1 mg tablet,chewable Nffzkh0ECDNLMexgk dailyFebruary 2023 12:00amComplies with drug therapy Cranberry 500 mg atsmwdgVjjuerpramsg450PRUDOuyvg dailyFebruary 2023 12:00amMarc2023 10:17amadminister with mealsRopinirole 0.5 mg tablet Ueeoplqnkxqv4XXEAMpjev at bedtimeSelect [facility] 2023 9:22amMarch 2023 10:17am FreeTextSi tablet 1 to 3 hours before bedtime Orally Once a day; Note: Source Status: Refill; Provider: Mynor Meade EAmitriptyline 10 mg tablet Vlprqeuarbxu94BTDILpenc at bedtimeSelect [facility] 2023 10:12amAugust 2023 9:09pmAspirin 81 mg tablet,delayed release (DR/EC)Wgjmhslmcjys25ITHNNsyoiJlrzw 2023 10:12amJuly 2024 5:26pmCranberry 500 mg dqruhjeCnykfadnhcap905NU POTwice dailySelect [facility] Specialty [facility] 2023 10:13amSeptember 2023 8:14amEstradiol 0.01 % (0.1 mg/gram) creamActiveVAGINALAs [facility] 2023 10:13amComplies with drug therapyGemfibrozil 600 mg ycmzlsPaupjordpqtg465FXAXMtrrh dailySelect [facility] 2023 10:13amMay 2023 7:56amGlucosamine Sulfate (Glucosamine) 500 mg tablet Xlbxknuudcui380FVFKUizogXckqp 2023 10:14amJune 2024 2:36pm Ketoconazole 2 % luoptCutdep7AYFIOEVOLBEIZBicsrFback 2023 10:14amComplies with drug therapyLevothyroxine 75 mcg vmmadiUauhpkmrxzdk78OQCGPOtebrAxitw 2023 10:14amMay 2023 9:00amLisinopril 20 mg wdhdbeBgzdzgdjvkws05QWQQYolwk September 17, 2023 10:14amJanuary 2024 2:50pmMagnesium Oxide 400 mg (241.3 mg magnesium) hromwqPsglbh314RLDRMcoutFrnwe 2023 10:15amComplies with drug therapyMethenamine Hippurate 1 gram xdbkasYyhbxphsfqlg0DBJGNvaphXhyor 2023 10:15amNovember 2024 10:42amPotassium Gluconate 595 mg (99 mg) tablet Uaoojw979CGTPPqokkJujhr 2023 10:16amComplies with drug therapyRopinirole 0.5 mg rdrzgjQmzlbgoaivez4FJRGQrhcc at bedtimeMarch 2023 10:16amMay 2023 7:58amVitamin E (Dl, Acetate) 180 mg (400 unit) bqqvnulSqxcpahnrmek705BUFY DailyMarch 2023 10:17amMay 2023 7:58amCranberry 500 mg capsuleActive 500MGPOOnceSeptember 2023 8:10amComplies with drug therapyGlucosamine Sulfate (Glucosamine) 500 mg nresvrRgermx0272IKRFAdrfsHddt 2024 2:31pm Complies with drug therapyMethenamine Hippurate 1 gram lyknlnTdimno5XLCBQrnmb dailyNovember 2024 10:42amComplies with drug therapyOmega 4-Vsi-Eba-Fish Oil (Fish Oil) 1,000 mg (120 mg-180 mg) btuxqcuRdbfhn8UHYYIBqcfsQnxmbtubz 2023 11:00pmComplies with drug therapyAmitriptyline 10 mg rggwahBbnpovjchjlw58KK PODailySeptember 2023 8:14amJune 2024 2:36pmAmlodipine 5 mg tablet Discontinued7.5MGPODailySeptember 2023 8:15amSeptember 2023 8:27am Levothyroxine 88 mcg ipnyiuItfeemitqtqx14IQGFXUqmowHojsdrdrd 2023 8:15am June 13, 2024 12:39pmAmlodipine 5 mg tmplpnYulxixzlbpis38JDSXLxlhdFpodipqrr 2023 8:26amSeptember 2023 8:28amAmlodipine 10 mg tabletDiscontinued 44HGLPYigbu028Jdmddcjbu 2023 11:00pmOctober 2024 11:19am Amitriptyline 10 mg chfrztSltkjf17NOVARnzutZesf 2024 2:31pmComplies with drug therapyCiprofloxacin Hcl 500 mg zsrzwfJeaqkwnnqrni293VLNXVovbt802Ajgvgs 2023 11:00pmSeptember 2023 9:31amOseltamivir (Tamiflu) 30 mg capsule Afkasiwhmgus07WTUVBrjkl yudhh1621Suqsnnft 2024 12:00amJune 2024 2:31pmClopidogrel 75 mg gtiwidSxhlrz16SSKWSghjb84650Zpxn 2024 11:00pm Lacunar cerebrovascular accident (CVA) Other cerebral infarction due to occlusion or stenosis of small arteryComplies with drug therapyCiprofloxacin Hcl 250 mg axmainVezszkouxoob428PGHPKjipi daily14 0September 2024 12:35pmOctober 2024 9:17amCiprofloxacin Hcl 250 mg gxcmbiZyfqixatambf783CYUPXrmkq jbqut123Kfnwxpk 2024 9:16amOctober 2024 9:10amDonepezil (Aricept) 5 mg quzxzeOwvkrqodzlhp4TIOCQkpxi218Klrmwab 2024 11:00pmNovember 2024 1:22pmLosartan-Hydrochlorothiazide 100-12.5 mg ltjjqxInknod1LCFCOIikfmKhdmfyx 2024 11:00pmComplies with drug therapy Amlodipine 10 mg pfbuwyMckiky75XVLEWxmvy673Ljuclyc 2024 11:19amComplies with drug therapyRopinirole 1 mg gahofiXpfiwttvfebi7LBPXSxunxPtapv 2023 12:00amMay 2023 8:08amAmlodipine 5 mg tabletDiscontinued7.5MGPODailyMarch 2023 9:37amMarch 2023 9:43amFreeTextSi tablet Orally Once a day; Note: Source Status: Taking; Refills: 3; Qty: 90 Tablet; Provider: Mynor Meade EAmlodipine 5 mg tabletDiscontinued7.6NPFVAaytr3064Isoen 2023 9:38amMarch 2023 9:45amFreeTextSi tablet Orally Once a day; Note: Source Status: Taking; Refills: 3; Qty: 90 Tablet; Provider: Mynor Meade EAmlodipine 5 mg tabletDiscontinued7.4RPUTKjwmb2978Wdpjy 2023 9:45amMarch 2023 10:17am FreeTextSi tablet Orally Once a day; Note: Source Status: Taking; Refills: 3; Qty: 90 Tablet; Provider: Mynor Hopsonodipine 5 mg tabletDiscontinued7.5 MGPODailyMarch 2023 10:12amJune 2023 1:29pmSulfamethoxazole- Trimethoprim 800-160 mg oputsnZwkfugitfqhx3VQUEXBgrtx wwwsa997Lglt 2024 11:00pmJuly 2024 12:26pmRopinirole 2 mg wkmtinJcgldj2BXNWAdnnj094Klbnonusl 2024 12:39pmComplies with drug therapyBuspirone 5 mg warhtkWdtnfxfpuist0AC POTwice tbleg603Qimirdwtu 2024 11:00pmNovember 2024 9:38am Immunizations Immunization Event Date Not Given Reason Dose Number [employer] Lot Number Reason(s) Given Vaccine Information Statement [...] 8:50pm33.2 g/dL 29.9-35.2Alkaline PhosphataseAugust 2024 8:50pmAugust 2024 8:37ki602 U/W76-467Qdgfe pHSept2024 12:31pmSeptember 2024 12:10vd9Haesg pH March 21, 2025 12:46pmSeptember 2024 12:89cx1Piuzu pHOctober 2024 9:02amOctober 2024 9:04am6.5Lymphocytes # (Manual)March 09, 2025 8:50pmAugust 2024 8:50pm0.49 10 3/uLBelow low normal1.20-3.80Mean Corpuscular VolumeAugust 2024 8:50pm90.6 fL81.0-99.0Alanine Aminotransferase (ALT/SGPT)March 09, 2025 8:50pmAugust 2024 8:50pm21 U/W09-36Turat Leukocyte EsteraseSeptember 2024 12:31pmSeptember 2024 12:33pm+++Urine Leukocyte EsteraseSept2024 12:46pmSeptember 2024 12:48pmnegativeUrine Leukocyte EsteraseOctober 2024 9:02amOctober 2024 9:04am++Lymphocytes %March 09, 2025 8:50pmAugust 2024 8:50pm6.0 % Below low pkesbe74.5-60.0Mean Platelet VolumeAugust 2024 8:50pm11.1 fL 9.5-13.5Aspartate Amino Transf (AST/SGOT)March 09, 2025 8:50pmAugust 2024 8:50pm18 U/K17-40Gsbbu NitriteSeptember 2024 12:31pmSeptember 2024 12:33pmPositiveUrine NitriteSeptember 2024 12:46pmSeptember 2024 12:48pmNegativeUrine NitriteOctober 2024 9:02amOctober 2024 9:04am PositiveMonocytes # (Manual)March 09, 2025 8:50pmAugust 2024 8:50pm0.41 10 3/uL0.30-0.80Platelet CountAugust 2024 8:64do397 10 3/nF722-140 BUN/Creatinine RatioAugus2024 8:50pmAugust 2024 8:50pm25.8Urine ProteinSeptember 2024 [...] Segmented NeutrophilsAugust 2024 8:50pmAugust 2024 8:50pm86.0Above high surtyf92.0-75.0Corrected White Blood CountAugust 2024 8:50pm8.2 10 3/uL4.0-11.0Chloride LevelAugust 2024 8:50pmAugust 2024 8:00ub448 mmol/L83-632Drfwm UrobilinogenSeptember 2024 12:31pmSeptember 2024 12:33pm0.2Urine UrobilinogenSeptember 2024 [...] 2024 12:48pmnegativeUrine Occult BloodOctober 2024 9:02amOctober 2024 9:86fj2-70Kqssyrynk GFR ()March 09, 2025 8:50pmAugust 2024 8:59qq46Ypmte low normal>=60 mL/min/1.73m 2Estimated GFR (Non- AmericanAugus2024 8:50pmAugust 2024 8:76il45Kdill low normal>=60 mL/min/1.73m 2GlobulinAugust 2024 8:50pmAugust 2024 8:50pm3.5 g/dL Glucose LevelAugust 2024 8:50pmAugust 2024 8:47tk279 mg/dLAbove high yconra53-764Fnphuinjd LevelAugust 2024 8:50pmAugust 2024 8:50pm3.9 mmol/L3.5-5.1Sodium LevelAugust 2024 8:50pmAugust 2024 8:56ef808 mmol/Q472-271Ovutv BilirubinAugust 2024 8:50pmAugust 2024 8:50pm0.5 mg/dL0.2-1.0Total ProteinAugust 2024 8:50pmAugust 2024 8:50pm7.1 g/dL6.4-8.2 Microbiology Results Procedure Source Result Collection Date/Time Result Date/Time Result Comment Performing Site Urine Culture Urine Klebsiella pneumoniae Octob er 2024 10:22am April 24, 2025 8:11am [facility] [id number] [address] [place] [address] Vital Signs Vital Reading Result Reference Range Collection Date/Time Height 60 [in_i] March 21, 2025 12:64xsZbqvrn25.58 kgSept2024 12:04pmHeart Rate85 /xmm19-174Zmnkbktwz 9th, 2025 12:04pmBP Gbxglivn290 mm[Hg]100-140September 2024 12:04pmBP Jxhrpekpk90 mm[Hg]60-100September 2024 12:04pmBMI (Body Mass Index)29.0 kg/d7Exlvvlkir 2024 12:44fcRefyai02 [in_i]May 02, 2025 9:11qdHlscfq78.94 kgOctober 2024 9:08amHeart Rate76 /tbj04-578Bbddtna 21st, 2025 9:15amBP Sqjfslxo647 mm[Hg]100-140October 2024 9:15amBP Mxusqyyde09 mm[Hg]60-100October 2024 9:15amBMI (Body Mass Index)29.7 kg/m2 May 02, 2025 9:93ygGflukr62 [in_i]May 08, 2025 11:15xyBmcefk22.26 kg May 08, 2025 11:01amHeart Rate78 /wiv18-162Wzhdutp 2024 11:01amBP Scuapaoa549 mm[Hg]100-140October 2024 11:25amBP Qectdkbnu53 mm[Hg]60-100 May 08, 2025 11:25amBMI (Body Mass Index)29.4 kg/i1Mwrrswy 2024 11:90evKxaydv16 [in_i]June 02, 2025 10:69rxRercgd83.58 kgNov2024 10:34amHeart Rate72 /mso25-228JesxtsdkJune 02, 2025 10:34amOxygen saturation by Pulse zebshkxz72 %95-100June 02, 2025 10:34amBP Mnjnsrnq879 mm[Hg] 100-140Nov2024 10:34amBP Umeanlxws50 mm[Hg]60-100November 2024 10:34amBMI (Body Mass Index)29.0 kg/y3BtqzpapjJune 02, 2025 10:34am Advance Directives Advance Directive Response Recorded Date/ Time Advance Directives No June 10:52am Insurance Providers Guarantor Ella Urena Address [address] [place] [address]Nstqwet Info.Home Phone: Coverage Status Update:2024 Payer Group Member ID Coverage Type Subscriber Relationship to Subscriber Effective Date Expiration Date Medicare Id: [id number] C Ruffing Id: [id number] [place] [address] Home Phone: Email: [email or web address] Encounters Encounter Location(s) Arrival/Admit Date Discharge/Departure Date Discharge/Departure Disposition Provider(s) Non-patient / Non-visit -[facility] ugust 2024 9:50pm ULISSES Quaneparted Physician/Provider [facility] 1:04pmSeptember 2024 1:48pmDischarged to home care or self care (routine discharge)[facility] 11:31amDorota Loaiza CMADeparted Physician/Provider [facility] 2024 1:01pmSeptember 2024 1:48pmDischarged to home care or self care (routine discharge)ULISSES [facility]aneparted Physician[facility] 1:29pmOctober 2024 2:06pmDischarged to home care or self care (routine discharge)Clarisse Conti PhDDeparted Physician/Provider [facility] 12:12pmOctober 2024 1:59pmDischarged to home care or self care (routine discharge)Clarisse Conti PhDDeparted Physician/Provider [facility] 2024 9:59amOctober 2024 10:04am Discharged to home care or self care (routine discharge)Shonna Villeda APRN CNPDeparted Referred-[facility] 10:22amOctober 2024 10:23amDischarged to home care or self care (routine discharge)Halina Lowe , ULISSESeparted Physician/Provider Office Visit-[facility] May 02, 2025 9:47amOctober 2024 10:34amDischarged to home care or self care (routine discharge)ULISSES Quaneparted Physician/Provider [facility] 20[facility] 11:44amOctober 2024 12:27pmDischarged to home care or self care (routine discharge)ULISSES Quaneparted Physician/Provider [facility] 10:18amNovember 2024 11:04amDischarged to home care or [...] 10:18am Plan of Treatment Author Shonna Villeda [facility] 2024 9:41am Reviewed results of urine dipstick [...] if this would occur. Author Halina Lowe [facility] 2024 11:52amDEXA faxed and order given to pt. Agrees to start aricept at lowest dose. Will also review w Neurology next month. States her mood is presently good on present rx's. She is unsure if she is still taking buspar because her daughter has her med list. Does not endorse symptoms of anxiety or depression today. Author Halina Lowe [facility] 2024 11:25amStart losartan-hctz - 100 - 12.5 Stop lisinopril-hctz 20-25 Stay hydrated. Check bps at home. Continue good hydration. Recheck labs in 3 months. Has continued aricept at lowest dose. Will also review w Neurology next month. Author Halina Lowe [facility] 2024 5:06pmPt agrees to referral to Neuropsychiatry [...]
--- OUTSIDE RECORDS SUMMARY | 2025-06-03 10:41 | XMS_ITS | Patient Health Record ---
Author Organization [facility] Address [address] [place] [address] Care Team Providers Care Vice President Global Digital Marketing Name Role Phone Edgar Puga Unavailable [phone] xxAvani Morse Unavailable [phone] Allergies Allergen (clinical drug ingredient) Drug/Non Drug Allergy documented on EMR Reaction Allergy Type Onset Date Status antihistamines (uncoded)UnknownAllergyActivedecongestants (uncoded)Unknown AllergyActivePenicillin (uncoded)UnknownAllergyActivestatins (uncoded)Unknown AllergyActivenitrofurantoinMacrodantinUnknownDrug AllergyActive Results Component Value Reference Range Notes SCC- SHOULDER 3 VIEW RIGHT 7 3030 Reviewed date:09/22/2024 11:37:00 AM Interpretation: Performing Lab: Notes/Report: SCC- SHOULDER 3 VIEW RIGHT 7 3030 Reviewed date:11/21/2024 01:44:41 PM Interpretation: Performing Lab: Notes/Report: Reason For Referral No Information Medications Medication SIG (Take, Route, Frequency, Duration) Notes Start Date End Date Status Vitamin D3 ActivePreserVision AREDS 2ActiveamitriptylineActivepotassium chlorideActive amLODIPineActivemultivitaminActivegemfibrozilActivelisinoprilActivelevothyroxine ActiveaspirinActivemethenamineActivemagnesium carbonateActiveglucosamineActive rOPINIRoleActiveFish OilActive Social History Tobacco Use: Social History Observation Description Date Details (start date - stop date) Never Smoker NA - NA AUDIT-C (Standard) Question Answer Notes Did you have a drink containing alcohol in the p ast year? No Tqwthd1VqfphxmfnnflqlHdxypfchIboxjll Control (Standard) Question Answer Notes Tobacco use: Nonsmoker Problems Problem Type SNOMED Code ICD Code Onset Dates Problem Status W/U Status Risk Notes Problem Closed fracture of p roximal right humerus (disorder) ([id number]) Other nondisplaced fracture of upper end of right humerus, subsequent encounter for fracture with routine healing (S42.294D) Activeconfirmed Vital Signs Height 5'0 in 08/29/2024 [place]021 lbs08/29/2024BMI27.34008/29/2024 Encounters Encounter Location Date Provider Diagnosis [place] [address] [facility] [place] [address] 08/29/2024 Edgar Puga Other closed nondisplaced fracture of proximal end of right humerus, initial encounter S42.294A [address] [facility] [place] [address] 09/12/2024 [place] [facility] Other closed nondisplaced fracture of proximal end of right humerus, initial encounter S42.294A [place] [address] [address] [facility] [place] [address] 10/10/2024 Avan[place] [facility] Other nondisplaced fracture of upper end of right humerus, subsequent encounter for fracture with routine healing S42.294D [address] [place] [address] 11/07/2024 Avan[place] [facility] Other nondisplaced fracture of upper end of right humerus, subsequent encounter for fracture with routine healing S42.294D [place] [address] [address] [place] [facility] [place] [address] 11/14/2024 A[place] [facility] Other nondisplaced fracture of upper end of right humerus, subsequent encounter for fracture with routine healing S42.294D Assessments Encounter Date Diagnosis (ICD Code) Assessment Notes Treatment Notes Treatment Clinical Notes Section Notes 08/29/2024 Other closed nondisp laced fracture of proximal end of right humerus, initial encounter (ICD-10 - S42.294A) 09/12/2024Other closed nondisplaced fracture of proximal end of right humerus, initial encounter (ICD-10 - S42.294A)10/10/2024Other nondisplaced fracture of upper end of right humerus, subsequent encounter for fracture with routine healing (ICD-10 - S42.294D)11/07/2024Other nondisplaced fracture of upper end of right humerus, subsequent encounter for fracture with routine healing (ICD-10 - S42.294D)11/14/2024Other nondisplaced fracture of upper end of right humerus, subsequent encounter for fracture with routine healing (ICD-10 - S42.294D) 08/29/2024Other For right proximal humerus fracture I recommended conservative treatment. We will continue with thesling. She will follow-up in 2 weeks to repeat x-rays of her right shoulder and reassess her progress. Import medication 09/12/2024OtherPatient is doing well and I will have her continue with the sling for the next month. She can work on elbow ROM to prevent stiffness. We will see her back in 4 weeks to repeat x-rays and reassess herprogress.10/10/2024Other Patient is doing well and is now 6 weeks out after injury. She can discontinue use of the sling andwill limit pushing/pulling/lifting with this arm. I did give her the option to start physical therapy for range of motion and she would like to try this on her own at first. I did give her a handout for home exercises to focus on ROM. We will see her back in 4 weeks to repeat x-rays and reassess her progress.11/07/2024OtherWe will have patient come back for appointment next week. No x-ray needed at that time.11/14/2024OtherPatient is now 11 weeks out from injury and has had return of her full range of motion. We discussed increasing her activity as tolerated by pain as far as lifting/pushing/pulling goes. Will have herfollow-up in 2 months to repeat x-rays and reassess her progress. Plan Of Treatment Pending Test Test Name Order Date SCC- SHOULDER 3 VIEW RIGHT [id number] Insurance Providers Payer Name Payer Address Payer Phone Subscriber Number Group Number Insured Name Patient Relationship to Insured Coverage Start Date Coverage End Date [employer] [address] [address] [place] [id number] Risa FRANK - patient is the insured
--- OUTSIDE RECORDS SUMMARY | 2025-06-03 10:41 | XMS_ITS | Clinical Summary ---
Author Organization [facility] Address [address] [place] [address] Care Team Providers Care Standards Analyst Name Role Phone Unavailable Primary Care Provider Unavailabl e Social History Tobacco UseTypesPacks/DayYears UsedDateSmoking Tobacco: Never Assessed CommentsUnknownSex and Gender InformationValueDate RecordedSex Assigned at Not on fileLegal SswRcguas27/30/2022 12:14 AM EDTGender IdentityNot on file Sexual OrientationNot on file Last Filed Vital Signs Vital SignReadingTime TakenCommentsBlood Yxdlowai218/8407/11/2019 9:58 AM EST Pulse--Temperature--Respiratory Rate--Oxygen Wceldqmlkv99%07/11/2019 9:57 AM EST Inhaled Oxygen Concentration--Sggllz98.4 kg (153 lb)07/11/2019 9:55 AM ESTHeight 152.4 cm (5')07/11/2019 9:55 AM ESTBody Mass Index29.8807/11/2019 9:55 AM EST Plan of Treatment Health MaintenanceDue DateLast DoneCommentsMedicare Annual Wellness (AWV) 1940Depression Pforfxpax97/08/1952Adult Ybeqnbv08/08/1962Pneumococcal Vaccine: 50+ Years (1 of 1 - PCV)1990Zoster Vaccines (1 of 2)1990 Fall Risk Dqltevldm62/08/2005COVID-19 Vaccine (1 - 2024-26 season)2025 Influenza Vaccine [...]
--- OUTSIDE RECORDS SUMMARY | 2025-06-03 10:41 | XMS_ITS | Clinical Summary ---
Author Organization [facility] Address [address] [place] [address] Care Team Providers Care Track Repairer Name Role Phone Halina Lowe MD Primary Care Provider [phone] Allergies Active AllergyReactionsCriticalityNoted QbvoIwcuxkosLeqyhrdlhpbkfwx68/24/2024 Other Reaction(s): rash/itching EkkwekssoxkjkzNtjqanb42/24/5569Tmurvcluygk77/25/2019 Other Reaction(s): rash/itching Pseudoephedrine Hcl10/04/2023 Other Reaction(s): rash/itching ClivqvqTrsaggy18/24/2024 Medications MedicationSigDispense QuantityRefillsLast FilledStart DateEnd DateStatus amitriptyline (Elavil) 10 MG tablet 10 mgActive Glucosamine-Chondroitin 5137-5840 MG/30ML liquid 1 (one) time each day at the same timeActive rOPINIRole (Requip) 1 MG tablet TAKE 1 TABLET BY MOUTH 1 TO 3 HOURS BEFORE BEDTIME DAILY08/21/2023ctive Potassium Gluconate 595 MG capsule Take 1 tablet by mouth DailyActive [place]-3 Fatty Acids (Fish Oil) 1200 MG capsule [...] InformationValueDate RecordedSex Assigned at Not on fileLegal QfqStiypz51/01/2023 8:34 PM EDTGender IdentityNot on fileSexual OrientationNot on file Last Filed Vital Signs Vital SignReadingTime TakenCommentsBlood Jldejyeb553/9208/17/2024 9:14 AM EST Swbsh645408/17/2024 9:14 AM CHSMmopitmczcx71.9 ??C (96.7 ??F)10/04/2023 12:39 PM EDTRespiratory Rate--Oxygen Depubprfld93%08/17/2024 9:14 AM ESTInhaled Oxygen Concentration--Sdnpqj83.8 kg (151 lb 9.6 oz)08/17/2024 9:14 AM ILDAnvtel341.7 cm (5' 0.5 )01/09/2021 12:00 PM EDTBody Mass Index29.12001/09/2021 12:00 PM EDT Plan of Treatment Health MaintenanceDue DateLast DoneCommentsPneumococcal Vaccine: 65+ Years (2 of 2 - PCV20 or PCV21)COVID-19 Vaccine ( - season) , 08/30/2020, 07/30/2020Influenza Vaccine (#1)2025 05/04/2024, 05/16/2023, 05/16/2022, Additional history exists Insurance Care Teams Team MemberRelationshipSpecialtyStart DateEnd Halina White MD PCP - GeneralFamily Akeffdwb63/17/24
--- OUTSIDE RECORDS SUMMARY | 2025-06-03 10:41 | XMS_ITS | CCD ---
Author Organization [facility] Care Team Providers Care Net Mobile Developer Name Role Phone PHYSICIAN, DEFAULT Admitting Unavailable PHYSICIAN, DEFAULT Attending Unavailable PHYSICIAN, DEFAULT Admitting Unavailable PHYSICIAN, DEFAULT Attending Unavailable Deepa Hendrickson Unavailable MD David Pike Primary Care Provider [phone] MD Deepa Hendrickson Attending Provider GLENDY, DR [...] Unavailable PIKE, DR DAVID Quarles Consulting Unavailable KAMALA HEBERT Admitting Unavailable MISC, DR JACOBSON Primary Care Unavailable KAMALA HEBERT Attending Unavailable KAMALA HEBERT Consulting Unavailable MD David Pike Primary Care Provider MD David Pike Other Provider [phone] MD Deepa Hendrickson Attending Provider [phone] DAVID PIKE Primary Care Physician [phone] David Pike Unavailable MD David Pike Attending Provider SHONNA GODOY Attending Unavailable SHONNA GODOY Attending Unavailable SHONNA GODOY Admitting Unavailable MD David Pike Primary Care Provider MD Deepa Hendrickson Attending Provider MD David Pike Primary Care Provider MD Deepa Hendrickson Attending Provider [phone] MD David Pike Attending Provider MD David Pike Primary Care Provider MD David Pike Attending Provider [phone] MD Deepa Hendrickson Attending Provider David Pike MD Primary Care Provider David Pike MD Primary Care Provider Rosie Jones DO Attending Provider ROSIE JONES Attending Unavailable DAVID PIKE Unavailable SCOTT CASTELLANO Attending Unavailable David Pike MD Primary Care Provider Deepa Hendrickson MD Attending Provider Rosie Jones DO Attending Provider David Pike MD Attending Provider David Pike MD Attending Provider [phone] [place] SERNA-CAREER TECHNICAL COUNSELOR-C, Inessa Quarles Attending Provider Max Shah Attending Unavailable David Pike MD Primary Care Provider Deepa Hendrickson MD Attending Provider Dorota Loaiza CMA Attending Provider Unavaila David Venegas MD Primary Care Provider Benjamin Robles, Thomas Attending Provider Shonna Villeda APRN Attending Provider Rosie Jones Attending Unavailab le David Pike Primary Care Unavailable Rosie Jones Admitting Unavailab David Mcpherson Attending Unavailable David Pike Admitting Unavailable David Pike Attending Unavailable David Pike Admitting Unavailable David Pike Attending Unavailable David Pike Admitting Unavailable David Pike Primary Care Unavailable Rosie Jones Admitting Unavailab le Rosie Jones Attending Unavailab le David Pike Primary Care Unavailable Emeka, Deepa Admitting Unavailable Emeka, Deepa Attending Unavailable David Pike MD Primary Care Provider [phone] David Pike MD Attending Provider David Pike MD Primary Care Provider [phone] DAVID PIKE Primary Care Unavailable PEREZ JAMES Admitting Unavailable PEREZ JAMES Attending Unavailable Allergies Allergy ClassificationReported Allergen(s)Allergy TypeDate of OnsetReaction(s) Facility (11 sources)AntihistaminesPropensity to adverse reactionsUnkFitzgib[facility] Hospital [facility] Other (17 sources)fesoterodineDrug AllergyUnkFitzgibbon Hospital [facility] Other (17 sources)FLUoxetineDrug AllergyUnkFitzgibbon Hospital [facility] Other (20 sources)Hmg-Coa Reductase Inhibitors (Statins); Translations: [HMG-CoA reductase inhibitor (substance)]Propensity to adverse jdfjeomzr62-34-7310Yofpeja (qualifier value), [facility] (20 sources)NitrofurantoinDrug Oagyfvm44-62-0965EvioghpGclzxxqsrTriHealth (17 sources)Penicillins (Antibiotic)Propensity to adverse reactionsBradley Hospital eleni Other (20 sources)DECONGESTANTSPropensity to adverse aennamodu86-61-0996Tutxdgn, [facility] (1 source)black walnut pollen extractDrug Aohqnsa00-14-7369OdtHocking [facility] (20 sources)Penicillins; Translations: [penicillins]Drug allergy (disorder) 91-20-7333ochvoay/rash, [facility] (1 source)Antihistamines - AlkylamineDrug allergy (disorder)65-92-8133Alr [facility] (1 source)Decongest Multi-ActionDrug allergy (disorder)58-59-3897Tew [facility] (3 sources)NITROFURANTOIN, MACROCRYSTALS / Nitrofurantoin, Monohydrate; Translations: [nitrofurantoin]Drug AllergyDiarrhea (finding)[facility] (6 sources)Pseudoephedrine; Translations: [pseudoephedrine]Drug AllergyEruption of skin (disorder)[facility] (3 sources)antihistamine/decongestants; Translations: [antihistamine/decongestants]Drug allergyitching/[facility] (9 sources)fexofenadine / PseudoephedrineDrug AllergyUnkProvidence City Hospital eleni Other (9 sources)Penicillin G Benzathine & ProcDrug allergyBradley Hospital eleni Other (20 sources)fesoterodineDrug Ycstskp66-14-9799CgfgsJvbtsdiefProtestant Deaconess Hospital (20 sources)FLUoxetineDrug Nrjvnrq25-78-8441ScaosIjaecjvdbProtestant Deaconess Hospital (20 sources)Penicillin G BenzathineAllergy to ztdxgepks13-87-4974QofzfPxovvgludProtestant Deaconess Hospital (20 sources)Qwacxuv-ANB-UbC Reductase InhibitorAllergy to ojsujibbt66-97-5327 [facility] (20 sources)Antihistamine & Nasal DecongesAllergy to jsxosnboy57-87-9992ItzpzC[facility] (3 sources)diphenhydrAMINEDrug Tbkvzxq63-79-3830PN[facility] (3 sources)PenicillinsDrug Wbdfptzzvqf58-57-5797GWYZ Healthcare (3 sources)PseudoephedrineDrug Wickhhh73-94-6471GHYC [facility] (1 source)PenicillinsPropensity to adverse reactions to knhz46-33-7642Ezn SecSilistix [facility]ess HospitalElement Designs [facility] (1 source)Antihistamines, Loratadine-TypePropensity to adverse reactions to drug 98-99-0072RpbtBlkCarilion New River Valley Medical CenterNEGATED: Highlighted row has been ruled out! (1 source)OtherPropensity to adverse bykdtsras34-46-4263VghdTdmCarilion New River Valley Medical Center Medications Current Medications MedicationDrug Class(es)DatesSig (Normalized)Sig (Original)Acetaminophen (1 source)Start: 77-14-5623oiuoziojotdeb (TYLENOL) tablet 650 mgamitriptyline hydrochloride 10 mg oral tablet (20 sources)Tricyclic AntidepressantStart: 03-29-2024 End: 03-95-2713xtqk 1 tablet by mouth once dailyAmitriptyline 10 mg tablet Active 10 MG PO Daily December 22, 2024 3:31pm Complies with drug therapyStart: 03-11-2024 End: 68-27-3954yyxx 1 tablet by mouth once daily at bedtimeAmitriptyline 10 mg tablet Discontinued 0 .ROUTE .COMPLEX 90 March 11, 2024 10:09pm March 132023 9:16am TAKE 1 TABLET BY MOUTH EVERYDAY AT BEDTIMEStart: 09-04-2023 End: 70-05-1176xtaw 1 tablet by mouth once daily at bedtimeAmitriptyline 10 mg tablet Discontinued 10 MG PO Daily at bedtime September 17, 2023 11:12am February 10:09pmStart: 69-55-0066hqre 1 tablet by mouth once daily at bedtime Elavil 25 mg Tab 25 mg = 1 tab(s), Oral, Once a day (at bedtime), Refills(s) 0, Anxiety Start Date:06/22/19 Status: OrderedamLODIPine 10 mg oral tablet (20 sources)Dihydropyridine Calcium Channel BlockerStart: 03-29-2024 End: 70-57-4737fshr 2 tablets by mouth once dailyAmlodipine 5 mg tablet Discontinued 10 MG PO Daily March 29, 2024 9:26am March 29, 2024 9:28amStart: 03-29-2024 End: 69-36-8361rfxh 10 mg by mouth once dailyAmlodipine Discontinued 10 MG PO Daily March 29, 2024 9:26am March 29, 2024 9:28amStart: 03-29-2024 End: 11-13-1879zjjj 7.5 mg by mouth once dailyAmlodipine 5 mg tablet Discontinued 7.5 MG PO Daily March 29, 2024 9:15am March 29, 2024 9:27amStart: 03-29-2024 End: 56-12-7191rbgt 7.5 mg by mouth once dailyAmlodipine Discontinued 7.5 MG PO Daily March 29, 2024 9:15am March 29, 2024 9:27amStart: 03-29-2024 End: 15-53-0579xknn 1 tablet by mouth once dailyAmlodipine 10 mg tablet Active 10 MG PO Daily 90 1 May 08, 2025 12:19pm Complies with drug therapyStart: 01-04-2024 End: 45-04-3994Gsbdlvpqdr 5 mg tablet Discontinued 0 .ROUTE .COMPLEX 135 1 March 10, 2024 5:46pm March 29, 2024 9:16am TAKE 1 AND 1/2 TABLETS BY MOUTH ONCE A DAYStart: 01-04-2024 End: 04-25-3076Biopgqkhrt Discontinued 0 .ROUTE .COMPLEX 135 March 10, 2024 5:46pm March 29, 2024 9:16am TAKE 1 AND 1/2 TABLETS BY MOUTH ONCE A DAY Start: 09-17-2023 End: 78-31-2774simb 7.5 mg by mouth once dailyAmlodipine 5 mg tablet Discontinued 7.5 MG PO Daily September 17, 2023 11:12am January 04, 2024 2:29pm Start: 09-04-2023 End: 80-07-1874iqhg 1 tablet by mouth once dailyAmlodipine 5 mg tablet Discontinued 7.5 MG PO Daily 135 0 September 17, 2023 10:45am September 17, 2023 11 :17am FreeTextSi tablet Orally Once a day; Note: Source Status: Taking; Refills: 3; Qty: 90 Tablet; Provider: Glendy Meade EStart: 09-04-2023 End: 14-15-3287mxcs 7.5 mg by mouth once dailyAmlodipine Discontinued 7.5 MG PO Daily September 17, 2023 11:12am January 04, 2024 2:29pmascorbic acid 113 mg / copper gluconate 0.4 mg / docosahexaenoic acid 87.5 mg / eicosapentaenoic acid 163 mg / lutein 2.5 mg / tocopherol acetate 100 unt / zeaxanthin 0.5 mg / zinc oxide 17.4 mg oralcapsule (18 sources)Vitamin Ctake 1 capsule by mouth once dailyMultiple Vitamins- Minerals (PRESERVISION AREDS 2) CAPS Take 1 capsule by mouth daily Activetake 1 capsule by mouth twice dailyPreserVision AREDS 2 - 1 capsule Orally twice a day Activeatorvastatin 20 mg oral tablet (2 sources)HMG-CoA Reductase InhibitorStart: 10-05-2018 End: 44-06-8897hkaVQLjel hydrochloride 5 mg oral tablet (8 sources)Start: 03-26-2025 End: 83-70-1966wdzq 1 tablet by mouth twice dailyBuspirone 5 mg tablet Active 5 MG PO Twice daily 60 0 March 26, 2025 12:00am Complies with drug therapy Calcium (2 sources)Phosphate Binder, CalciumStart: 34-58-1266mcvj 1 tablet by mouth at bedtimeCalcium 600+D 1 tablet, Oral, Bedtime, Refill(s) 0, Prophylaxis Start Date: 06/11/15 Status: OrderedCalcium 500+D3 500-400 MG-UNIT (1 source)take 1 tablet by mouth once dailyCalcium 500+D3 500-400 MG-UNIT 1 tablet with a meal Orally Once a day Activecalcium carbonate 1500 mg oral tablet (2 sources)Start: 27-40-4447gqvobke (as carbonate) 600 mg oral tablet 1,200 mg = 2 tab(s), Oral, Daily, Refills(s) 0, Prophylaxis Start Date: 08/14/15 Status: Orderedcalcium carbonate 1250 mg / cholecalciferol 200 unt oral tablet (1 source)Vitamin DStart: 05-06-2025 End: 62-59-0945bpxgtuj citrate 1500 mg / cholecalciferol 250 unt oral tablet (1 source)Vitamin Dtake 1 tablet by mouth once daily at breakfastcalcium citrate-vitamin D (CITRICAL + D) 315-250 MG-UNIT TABS per tablet Take 1 tablet by mouth daily (with breakfast) Activecholecalciferol 0.025 mg oral tablet (20 sources)Vitamin DStart: 05-06-2025 End: ,000 Units, Oral, DAILY, 2 doses, First dose on 05/06/25 at 1115, Last dose on 05/07/25 tw6623Nkdqz: 62-89-4351atne 1 capsule by mouth once dailyCholecalciferol (Vitamin D3) 125 mcg (5,000 unit) capsule Active 125 MCG PO Daily September 04, 2023 1:00am Complies with drug therapytake 1 tablet by mouth once dailyvitamin D (CHOLECALCIFEROL) 1000 UNIT TABS tablet Take 1,000 Units by mouth daily Activechondroitin sulfates 40 mg/ml / glucosamine hydrochloride 50 mg/ml oral solution (3 sources)Glucosamine-Chondroitin 4378-2468 MG/30ML liquid 1 (one) time each day at the same time ActiveclonazePAM 0.5 mg oral tablet (17 sources)BenzodiazepineStart: 69-84-1833Pottf: 80-93-9413kkle 1 tablet by mouth once dailyclonazePAM 0.5 MG TAKE 1 TABLET BY MOUTH EVERY DAY for Feb, Activetake 1 tablet by mouth twice daily as neededclonazePAM (KLONOPIN) 0.5 MG tablet Take 0.5 mg by mouth 2 times daily as needed. 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 Complies with drug therapyCranberry (20 sources)Non-Standardized Food Allergenic Extract, Non-Standardized Plant Allergenic ExtractStart: 48-79-7671qfha 1 capsule by mouth onceCranberry 500 mg capsule Active 500 MG PO Once March 29, 2024 9:10am Complies with drug therapyStart: 18-30-5438mqac 1 capsule by mouth onceStart: 65-94-0767buhg 1 capsule by mouth onceCranberry 500 mg capsule Active 500 MG PO Once March 29, 2024 8:10amStart: 42-14-1519owyi 500 mg by mouth onceCranberry Active 500 MG PO Once March 29, 2024 9:10amStart: 09-17-2023 End: 15-84-2347thwj 1 capsule by mouth twice dailyCranberry 500 mg capsule Discontinued 500 MG PO Twice daily September 17, 2023 11:13am March 9:14amStart: 09-17-2023 End: 49-68-6407payd 1 capsule by mouth twice dailyCranberry 500 mg capsule Discontinued 500 MG PO Twice daily September 17, 2023 10:13am March 8:14amStart: 09-17-2023 End: 55-21-0725csgd 500 mg by mouth twice dailyCranberry Discontinued 500 MG PO Twice daily September 17, 2023 11:13am March 29, 2024 9:14amStart: 09-17-2023 take 500 mg by mouth twice dailyCranberry Active 500 MG PO Twice daily September 17, 2023 11:13amStart: 09-04-2023 End: 94-36-4016lovp 1 capsule by mouth twice daily at mealtimeCranberry 500 mg capsule Discontinued 500 MG PO Twice daily September 04, 2023 1:00am September 17, 2023 11:17am administer with mealsStart: 09-04-2023 End: 49-41-9012yxem 1 capsule by mouth twice daily at mealtimeCranberry 500 mg capsule Discontinued 500 MG PO Twice daily September 04, 2023 12:00am September 17, 2023 10:17am administer with mealsStart: 09-04-2023 End: 58-76-2063dmck 500 mg by mouth twice daily at mealtimeCranberry Discontinued 500 MG PO Twice daily September 04, 2023 1:00am September 17, 2023 11:17am administer with mealsCranberry 300 MG as directed Orally Activedonepezil hydrochloride 5 mg oral tablet (4 sources)Start: 05-02-2025 End: 97-25-7314cgyw 1 tablet by mouth once dailyDonepezil (Aricept) 5 mg tablet Active 5 MG PO Daily 30 0 May 02, 2025 12:00am Complies with drug therapy estradiol 0.1 mg/ml vaginal cream (20 sources)EstrogenStart: 09-04-2023 End: 33-63-9692Mlehryovb 0.01 % (0.1 mg/gram) cream Active VAGINAL As Directed September 17, 2023 11:13am Complies with drug therapyestradiol (Estrace) 0.1 MG/GM vaginal cream 1 gram Vaginal Once per week for 30 days ActiveEstradiol 0.1 MG/GM as directed Vaginal ActiveEstradiol 0.1 MG/GM as directed Vaginal Active Estradiol 0.1 MG/GM (2 sources)Estradiol 0.1 MG/GM as directed Vaginal ActiveFish Oils (19 sources)Start: 28-12-4507motn 1 tablet by mouth at bedtimeFish Oil 1 tablet, Oral, Bedtime, Refill(s) 0, Prophylaxis Start Date: 06/11/15 Status: Ordered take 1 capsule by mouth once dailyFish Oil 1000 MG 1 capsule Orally Once a day ActiveFLUoxetine 10 mg oral capsule (2 sources)Serotonin Reuptake InhibitorStart: 67-23-7719jjhp 1 capsule by mouth every twenty-four hoursFLUoxetine HCl 10 MG 1 capsule Orally Once a day for 30 days Jan, Activegemfibrozil 600 mg oral tablet (20 sources)Peroxisome Proliferator Receptor alpha AgonistStart: 32-12-6953cwkz 1 tablet by mouth once dailyGemfibrozil 600 mg tablet Active 600 MG PO Daily November 25, 2023 12:00am Complies with drug therapyStart: 09-17-2023 End: 26-77-4398hfga 1 tablet by mouth twice dailyGemfibrozil 600 mg tablet Discontinued 600 MG PO Twice daily September 17, 2023 11:13am November 2448:56am Start: 09-04-2023 End: 94-11-0505Xlptmxeftbs 600 mg tablet Discontinued MG PO September 04, 2023 1:00am September 17, 2023 11:17am FreeTextSi tablet 30 minutes before morning and evening meals Orally ONCE A DAY; Note: Source Status: Taking; Provider: Glendy Meade ( )Start: 65-14-1243ztzz 1 tablet by mouth twice dailygemfibrozil 600 mg Tab 600 mg = 1 tab(s), Oral, BID, Refills(s) 0, High blood sugar Start Date: 06/11/15 Status: OrderedGemfibrozil 600 MG 1 tablet 30 minutes before morning and evening meals Orally ONCE A DAY Activeglucosamine sulfate 500 mg oral tablet (20 sources)Start: 72-58-0529beku 2 tablets by mouth once dailyGlucosamine Sulfate (Glucosamine) 500 mg tablet Active 1000 MG PO Daily December 22, 2024 3:31pm Complies with drug therapyStart: 09-04-2023 End: 90-32-5205sazz 1 tablet by mouth once dailyGlucosamine Sulfate (Glucosamine) 500 mg tablet Discontinued 500 MG PO Daily September 17, 2023 11:14am December 22, 2024 3:36pmGlucosamine Chond Complex/MSM - (17 sources)Glucosamine Chond Complex/MSM - as directed Orally Active hydroCHLOROthiazide 25 mg / lisinopril 20 mg oral tablet (4 sources)Thiazide Diuretic, Angiotensin Converting Enzyme Inhibitor End: 04-22-6370gtcy 2 tablets by mouth once dailylisinopril-hydrochlorothiazide (PRINZIDE;ZESTORETIC) 20-25 MG per tablet Take 2 tablets by mouth daily 05/06/2025 Discontinued (Stop Taking at Discharge)hydroCHLOROthiazide 12.5 mg / losartan potassium 100 mg oral tablet (2 sources)Thiazide Diuretic, Angiotensin 2 Receptor BlockerStart: 05-08-2025 take 1 tablet by mouth once dailyLosartan-Hydrochlorothiazide 100-12.5 mg tablet Active 1 TAB PO Daily May 08, 2025 12:00am Complies with drug therapy Start: 73-12-9015uifl 1 tablet by mouth once dailylosartan-hydroCHLOROthiazide (HYZAAR) 100-12.5 MG per tablet Take 1 tablet by mouth daily 30 tablet3 05/06/2025 Activeketoconazole 20 mg/ml topical cream (20 sources)Azole AntifungalStart: 09-04-2023 End: 46-70-5963Obhkczeizigc 2 % cream Active 1 APPLIC TOPICAL Daily September 17, 2023 11:14am Complies with drug therapyStart: 09-04-2023 End: 10-17-9379Spejcmmoqgec 2 % cream Discontinued 1 APPLIC TOPICAL Daily September 04, 2023 1:00am September 17, 2023 11:17am FreeTextSi application Externally Once a day; Note: Source Status: Taking; Provider: Glendy Meade ( )Ketoconazole 2 % 1 application Externally Once a day Active Ketoconazole 2 % 1 application Externally Once a day Activelevothyroxine sodium 0.088 mg oral tablet (20 sources)l-ThyroxineStart: 05-06-2025 End: 18-63-8479Rakzo: 06-13-2024 End: 36-23-9801wlvq 1 tablet by mouth once daily in the morningLevothyroxine 88 mcg tablet Discontinued 0 .ROUTE .COMPLEX 90 0 August 29, 2024 4:15pm February 17, 2025 10:46am TAKE 1 TABLET BY MOUTH EVERY DAY IN THE MORNING ON AN EMPTY STOMACHStart: 03-29-2024 End: 09-96-3121lidw 1 tablet by mouth once dailyLevothyroxine 88 mcg tablet Discontinued 88 MCG PO Daily March 29, 2024 9:15am June 13, 2024 1:39pmStart: 03-18-2024 End: 15-45-7231svej 1 tablet by mouth once daily in the morningLevothyroxine 88 mcg tablet Discontinued 0 .ROUTE .COMPLEX 90 0 March 18, 2024 11:20pm March 29, 2024 9:16am TAKE 1 TABLET BY MOUTH EVERY MORNING ON AN EMPTY STOMACHStart: 12-01-2023 End: 99-88-5904tevk 1 tablet by mouth once daily in the morningLevothyroxine 75 mcg tablet Discontinued 0 .ROUTE .COMPLEX 90 0 January 11, 2024 8:33am March 18, 2024 11:20pm TAKE 1 TABLET BY MOUTH EVERY MORNING ON AN EMPTY STOMACHStart: 09-04-2023 End: 67-91-3617izfe 1 tablet by mouth once dailyLevothyroxine 75 mcg tablet Discontinued 75 MCG PO Daily September 17, 2023 11:14am December 01, 2023 10:00am Start: 21-06-9046kpbxhqmmmbcaz 50 microgram, Oral, Daily, Refills(s) 0, Thyroid Start Date: 06/22/19 Status: Orderedtake 1 tablet by mouth once daily levothyroxine (SYNTHROID) 50 MCG tablet Take 50 mcg by mouth Daily Activetake 1 tablet by mouth once daily in the morningLevothyroxine Sodium 75 MCG 1 tablet in the morning on an empty stomach Orally Once a day for 90 days Activetake 1 tablet by mouth once daily in the morningLevothyroxine Sodium 50 MCG 1 tablet in the morning on an empty stomach Orally Once a day ActiveMagnesium (17 sources)Magnesium 400 MG as directed Orally Activemagnesium oxide 400 mg oral tablet (20 sources)Start: 38-73-0853fvwp 1 tablet by mouth once dailyMagnesium Oxide 400 mg (241.3 mg magnesium) tablet Active 400 MG PO Daily September 17, 2023 11:15am Complies with drug therapyStart: 09-04-2023 End: 23-92-2698Jteslncuv Oxide 400 mg (241.3 mg magnesium) tablet Discontinued MG PO As Directed September 04, 2023 1:00am September 17, 2023 11:17am FreeTextSig: as directed Orally; Note: Source Status: Taking; Provider: Glendy Meade ( )magnesium oxide (Mag-Ox) 400 mg tablet 400 mg Daily Activemethenamine hippurate 1000 mg oral tablet (20 sources)Start: 09-04-2023 End: 10-32-2874Nuvychteuzq Hippurate 1 gram tablet Active 1 GM PO Daily September 17, 2023 11:15am Complies with drugtherapytake 1 tablet by mouth every twenty- four hoursMethenamine Hippurate 1 GM 1 tablet Orally ONCE A Day Activetake 1 tablet by mouth every twenty-four hoursMethenamine Hippurate 1 GM 1 tablet Orally ONCE A Day ActiveMisc Natural Products (GLUCOSAMINE CHOND MSM FORMULA PO) (1 source)take 1 tablet by mouth once dailyMisc Natural Products (GLUCOSAMINE CHOND MSM FORMULA PO) Take 1 tablet by mouth daily ActiveMultiple Vitamins- Minerals (THERAPEUTIC MULTIVITAMIN-MINERALS) tablet (1 source)take 1 tablet by mouth once dailyMultiple Vitamins-Minerals (THERAPEUTIC MULTIVITAMIN-MINERALS) tablet Take 1 tablet by mouth daily Active Multivitamin (Daily Multi-Vitamin) tablet (20 sources)Start: 53-19-6017iycb 1 tablet by mouth once dailyMultivitamin (Daily Multi-Vitamin) tablet Active 1 TAB PO Daily September 04, 2023 1:00am Complieswith drug therapyStart: 86-09-7752vagx 1 tablet by mouth once daily Start: 63-53-6221omuy 1 tablet by mouth once dailyMultivitamin (Daily Multi- Vitamin) tablet Active 1 TAB PO Daily September 04, 2023 12:00amStart: 06-78-2638unfb 1 tablet by mouth once dailyMultivitamin (Daily Multi-Vitamin) tablet Active 1 TAB PO Daily September 04, 2023 1:00amMultivitamin preparation (17 sources)take 1 tablet by mouth once dailyMulti Vitamin - 1 tablet Orally Once a day ActiveMultivitamins and Minerals (2 sources)Start: 17-07-5591kyyd 1 tablet by mouth at bedtimeMultivitamins and Minerals 1 tablet, Oral, Bedtime, Refill(s) 0, Prophylaxis Start Date: 06/11/15 Status: OrderedNiacin (2 sources)Nicotinic AcidStart: 99-25-1474ysew 1 tablet by mouth at bedtime niacin 1 tablet, Oral, Bedtime, Refills(s) 0, Prophylaxis Start Date: 06/11/15 Status: OrderedOmega 7-Svp-Mxx-Fish Oil (Fish Oil) 1,000 mg (120 mg-180 mg) capsule (16 sources)Start: 93-43-2712nfue 1 capsule by mouth once dailyOmega 9-Ilw-Jpm-Fish Oil (Fish Oil) 1,000 mg (120 mg-180 mg) capsule Active 1 CAP PO Daily March 29, 2024 12:00am Complies with drug therapyStart: 03-29-2024 take 1 capsule by mouth once dailyStart: 70-61-3945tbqq 1 capsule by mouth once dailyOmega 8-Mlq-Tjj-Fish Oil (Fish Oil) 1,000 mg (120 mg-180 mg) capsule Active 1 CAP PO Daily March 28, 2024 11:00pmStart: 51-93-9607jofj 1 capsule by mouth once dailyOmega 0-Hfk-Sbp-Fish Oil (Fish Oil) 1,000 mg (120 mg-180 mg) capsule Active 1 CAP PO Daily March 29, 2024 12:00amOmega-3 Fatty Acids (Fish Oil) 1200 MG capsule delayed-release (3 sources)take 1 capsule by mouth once dailyOmega-3 Fatty Acids (Fish Oil) 1200 MG capsule delayed-release Take 1 capsule by mouth Daily ActiveOmega-3 Fatty Acids (FISH OIL) 1200 MG CPDR (1 source)take 1 capsule by mouth once dailyOmega-3 Fatty Acids (FISH OIL) 1200 MG CPDR Take 1 capsule by mouth daily Activeomeprazole 20 mg delayed release oral capsule (5 sources)Proton Pump InhibitorStart: 24-02-9279xnzk 1 capsule by mouth once daily in the morningomeprazole 20 mg Cap-DR 20 mg = 1 cap(s), Oral, qAM, # 30 cap(s), Refills(s) 11, Pharmacy: [facility]/pharmacy #[id number] Start Date: 05/25/19 Status: Orderedondansetron (ZOFRAN-ODT) disintegrating tablet 4 mg (1 source)Start: 04-62-5457jtdvbbtubvk (ZOFRAN-ODT) disintegrating tablet 4 mg pantoprazole 40 mg delayed release oral tablet (1 source)Proton Pump InhibitorStart: 05-07-2025 End: 73-27-9209mhdjlyita 99 mg extended release oral tablet (14 sources)take 1 tablet by mouth once dailyPotassium 99 MG 1 tablet Orally Once a day Activepotassium gluconate 2.5 meq oral tablet (20 sources)Start: 09-04-2023 End: 71-23-5511qhck 1 tablet by mouth once dailyPotassium Gluconate 595 mg (99 mg) tablet Active 595 MG PO Daily September 17, 2023 11:16am Complies with drug therapyStart: 09-04-2023 End: 78-31-0962qxif 1 tablet by mouth once dailyPotassium Gluconate 595 mg (99 mg) tablet Discontinued 1 TAB PO Daily September 04, 2023 1:00am September 17, 2023 11:17am FreeTextSi tablet Orally Once a day; Note: Source Status: Taking; Provider: Glendy Meade ( )take 1 tablet by mouth once dailyPotassium Gluconate 595 MG CAPS Take 1 tablet by mouth daily Activetake 1 tablet by mouth once dailyPotassium Gluconate 595 MG capsule Take 1 tablet by mouth Daily ActivePreserVision AREDS 2 oral capsule (2 sources)Start: 93-16-0987yyly 1 capsule by mouth once dailyPreserVision AREDS 2 oral capsule 1 cap(s), Oral, Daily, Refill(s) 0 Start Date: 06/22/19 Status: Orderedproctazone-hc (2 sources)Start: 16-87-1577tysszdubcc-hc proctazone-hc Start Date: 08/15/15 Status: OrderedrOPINIRole 1 mg oral tablet (20 sources)Nonergot Dopamine AgonistStart: 05-06-2025 End: 72-05-9571Cpwgc: 07-56-1756wbqx 1 tablet by mouth once dailyRopinirole 2 mg tablet Active 2 MG PO Daily March 21, 2025 1:39pm Complies with drug therapyStart: 07-11-2024 End: 33-68-1957kubd 1 tablet by mouth once dailyRopinirole 1 mg tablet Discontinued 0 .ROUTE .COMPLEX 90 1 January 16, 2025 4:30pm March 21, 2025 1:39pm TAKE 1 TABLET BY MOUTH DAILYStart: 09-17-2023 End: 04-62-0349lgrq 2 tablets by mouth once daily at bedtimeRopinirole 0.5 mg tablet Discontinued 1 MG PO Daily at bedtime September 17, 2023 11:16am November 25, 2023 8:58amStart: 09-04-2023 End: 91-40-4379pkyj 1 tablet by mouth once daily at bedtimeRopinirole 0.5 mg tablet Discontinued 1 MG PO Daily at bedtime September 17, 2023 10:22am September 17, 2023 11:17am FreeTextSi tablet 1 to 3 hours before bedtime Orally Once a day; Note: Source Status: Refill; Provider: Glendy Meade EStart: 09-04-2023 End: 26-23-2781kouz 1 mg by mouth once daily at bedtimeRopinirole Discontinued 1 MG PO Daily at bedtime September 17, 2023 11:16am November 25, 2023 8:58amStart: 08-21-2023 End: 60-04-5402gtzb 1 tablet by mouth once dailyRopinirole 1 mg tablet Discontinued 1 MG PO Daily September 17, 2023 1:00am November 25, 2023 9:08amStart: 54-01-2408qypt 1 tablet by mouth once daily at bedtimerOPINIRole HCl 0.5 MG 1 tablet 1 to 3 hours before bedtime Orally Once a day for 30 days Sep, ActiveStart: 13-36-5583lpwg 1 tablet by mouth once daily at bedtimerOPINIRole HCl 0.25 MG 1 tablet 1 to 3 hours before bedtime Orally Once a day for 30 days Sep, Activetake 1 tablet by mouth once daily at bedtimerOPINIRole HCl 0.25 MG 1 tablet 1 to 3 hours before bedtime Orally Once a day Activetherapeutic multivitamin-minerals (Theragran-M) tablet (3 sources)take 1 tablet by mouth once dailytherapeutic multivitamin-minerals (Theragran-M) tablet Take 1 tablet by mouth Daily Activetherapeutic multivitamin-minerals 1 tablet (1 source)Start: 05-06-2025 End: tablet, Oral, DAILY, 2 doses, First dose on 05/06/25 at 0900, Last dose on 05/07/25 at 0900Vit C,A-Tw-Pvqzh-Lutein-Zeaxan (Preservision Areds-2) 250-90-40-1 mg tablet,chewable (20 sources)Start: 67-60-6330Ebb C,A-Pt-Hlqbo-Lutein-Zeaxan (Preservision Areds- 2) 250-90-40-1 mg tablet,chewable Active 1 TAB PO Twice daily September 04, 2023 1:00am Complies with drug therapyStart: 15-32-2343Jamfz: 89-74-5193Wac C,C-Mo-Ixuyt-Lutein-Zeaxan (Preservision Areds-2) 250-90-40-1 mg tablet,chewable Active 1 TAB PO Twice daily September 04, 2023 12:00amStart: 82-50-6727Qxp C,O-Nm-Khgzj-Lutein-Zeaxan (Preservision Areds-2) 250-90-40-1 mg tablet,chewable Active 1 TAB PO Twice daily September 04, 2023 1:00amvitamin b12 1 mg oral tablet (5 sources)Vitamin C46Pzyjq: 05-06-2025 End: ,000 mcg, Oral, DAILY, 2 doses, First dose on 05/06/25 at 0900, Last dose on 05/07/25 at 0900take 2 tablets by mouth once dailyvitamin B-12 (CYANOCOBALAMIN) 1000 MCG tablet Take 2,000 mcg by mouth daily Active Vitamin B12 1000 MCG (1 source)take 1 tablet by mouth once dailyVitamin B12 1000 MCG 1 tablet Orally Once a day ActiveVitamin D-3 125 MCG (5000 UT) (17 sources)Vitamin D-3 125 MCG (5000 UT) as directed Orally ActiveVitamin D3 (2 sources)Start: 58-19-3348Rgwrxaj D3 1,000 International_Unit, Oral, Daily, Refills(s) 0, Prophylaxis Start Date: 08/14/15 Status: OrderedVitamin E 400 UNIT (13 sources)take 1 capsule by mouth once dailyVitamin E 400 UNIT 1 capsule Orally Once a day Active Completed/Discontinued Medications MedicationDrug Class(es)DatesSig (Normalized)Sig (Original)aspirin 81 mg delayed release oral tablet (20 sources)Platelet Aggregation Inhibitor, Nonsteroidal Anti-inflammatory Drug Start: 09-04-2023 End: 77-49-0037kbkh 1 tablet by mouth once dailyAspirin 81 mg tablet,delayed release (DR/EC) Discontinued 81 MG PO Daily September 17, 2023 11:12am February 07, 2025 6:26pmStart: 06-11-2015 End: 85-69-0317btni 1 tablet by mouth once dailyaspirin 81 mg oral tablet 81 mg = 1 tab(s), Oral, Daily, Refills(s) 0, Blood Thinner Start Date: 06/11/15 Status: Orderedtake 1 tablet by mouth once dailyaspirin 81 MG chewable tablet Chew 1 tablet every day by oral route. Activetake 1 tablet by mouth every twenty-four hoursAspirin 81 81 MG 1 tablet Orally Once a day Activetake 1 tablet by mouth once dailyAspirin 81 81 MG 1 tablet Orally Once a day Active azithromycin 250 mg oral tablet (20 sources)Macrolide AntimicrobialStart: 09-04-2023 End: 07-79-4680diht 2 tablets by mouth once daily, then take 1 tablet by mouth once dailyAzithromycin 250 mg tablet Discontinued TAB PO Daily September 04, 2023 1:00am September 17, 2023 10:21am FreeTextSig: as directed Orally 2 tabs po today, then 1 tab daily x 4 more days; Note: Source Status: Start; Refills: 0; Provider: Glendy Diop: 11-12-5905Ixgurbtfwbow 250 MG as directed Orally 2 tabs po today, then 1 tab daily x 4 more days for 5 Apr, Active ciprofloxacin 250 mg oral tablet (20 sources)Quinolone AntimicrobialStart: 01-27-2025 End: 49-01-2274gvso 1 tablet by mouth twice dailyCiprofloxacin Hcl 250 mg tablet Discontinued 250 MG PO Twice daily 14 0 April 21, 2025 10:16am May 02, 2025 10:10amStart: 03-11-2024 End: 09-10-2657bunz 1 tablet by mouth once dailyCiprofloxacin Hcl 500 mg tablet Discontinued 500 MG PO Daily 5 5 0 March 11, 2024 12:00am March 16, 2024 10:31amStart: 48-47-1115czvv 1 tablet by mouth every twelve hoursCiprofloxacin HCl 250 MG 1 tablet Orally every 12 hrs for 7 days Mar, Active hydroCHLOROthiazide 12.5 mg oral capsule (8 sources)Thiazide DiureticStart: 54-32-0316zisf 12.5 mg by mouth once daily 12.5 mg, Oral, DAILY, First dose on Thu05/06/25 at 1130, Until Discontinued Start: 66-73-3859qgeiddcdcdbdhzcdcfe 12.5 mg Tab Refills(s) 0 Start Date: 02/06/20 Status: Orderediopamidol (ISOVUE-370) 76 % injection 100 mL (1 source)Start: 05-05-2025 End: 83-66-6877sfwt 1 dose intravenously ettq722 mL, IntraVENous, IMG ONCE PRN, 1 dose, Starting on Thu05/05/25 at 2229, Until Thu05/05/25 at 2233, Other lisinopril 20 mg oral tablet (20 sources)Angiotensin Converting Enzyme InhibitorStart: 08-01-2024 End: 64-01-3644tpsu 1 tablet by mouth once dailyLisinopril 20 mg tablet Discontinued 0 .ROUTE .COMPLEX 90 3 August 01, 2024 3:50pm April 12:20pm TAKE 1 TABLET BY MOUTH EVERY DAYStart: 09-04-2023 End: 50-75-7072khcx 1 tablet by mouth once dailyLisinopril 20 mg tablet Discontinued 20 MG PO Daily September 17, 2023 11:14am August 01, 2024 3:50pm Start: 55-68-7402escx 1 tablet by mouth once dailylisinopril 40 mg Tab 40 mg = 1 tab(s), Oral, Daily, Refills(s) 0, High blood pressure Start Date: 05/25/19 Status: Orderedtake 1 tablet by mouth once dailyLisinopril 20 MG TAKE 1 TABLET BY MOUTH EVERY DAY for 90 Activetake 0.5 tablet by mouth once dailyLisinopril 40 MG 1/2 tablet Orally Once a day Activelosartan potassium 50 mg oral tablet (1 source)Angiotensin 2 Receptor BlockerStart: 48-49-2998138 mg, Oral, DAILY, First dose on 05/06/25 at 1130, Until Discontinued, Along with HCTZOmega 2-Qvk-Gph-Fish Oil (Fish Oil) 60-90-500 mg capsule (20 sources)Start: 09-04-2023 End: 01-15-5807oyfz 1 capsule by mouth once dailyOmega 7-Yym-Xcd-Fish Oil (Fish Oil) 60-90-500 mg capsule Discontinued 1 CAP PO Daily August 12:00am November 25, 2023 7:58amStart: 09-04-2023 End: 50-09-3599svdn 1 capsule by mouth once dailyOmega 9-Nqo-Hon-Fish Oil (Fish Oil) 60-90-500 mg capsule Discontinued 1 CAP PO Daily August 1:00am November 25, 2023 8:58amStart: 33-68-4180zbni 1 capsule by mouth once dailyOmega 1-Ujx-Knq-Fish Oil (Fish Oil) 60-90-500 mg capsule Active 1 CAP PO Daily September 04, 2023 1:00amoseltamivir 30 mg oral capsule (14 sources)Neuraminidase InhibitorStart: 08-18-2024 End: 10-87-2385iqtl 1 capsule by mouth twice dailyOseltamivir (Tamiflu) 30 mg capsule Discontinued 30 MG PO Twice daily 10 5 0 August 18, 2024 1:00am December 22, 2024 3:31pmpolyethylene glycol 3350 11587 mg powder for oral solution (1 source)Osmotic LaxativeStart: g, Oral, DAILY PRN, Starting on 05/06/25 at 0314, Until Discontinued, Constipation, First line therapy for constipation5 ml sodium chloride 9 mg/ml injection (3 sources)Start: -40 mL, IntraVENous, EVERY 12 HOURS SCHEDULED (2 times per day), First dose on 05/06/25 at 0900, Until Discontinued, For Line Patency: Peripheral IV = 5 mL; Midline or Central Line = 10 mL/lumen. If following IV push medication, administer flush at same rate as the IV push. Flush volume is determined by type of infusion therapy being given. For non- viscous solutions use: Peripheral IV = 5 mLMidline or Central Line = 10 mL/lumen For viscous solutions (i.e. blood components, parenteral nutrition, contrast media, or after obtaining blood sample) use: Peripheral IV = 10 mL Midline or Central Line = 20 mL/lumenStart: 87-22-6517tdoa 20 mL intravenously every hour IntraVENous, at 5-250 mL/hr, PRN, if patient [...] mL/hr or less into rate field of order.Start: 75-35-3533cxbm 10 mL intravenously once as udzmov03 mL, IntraVENous, PRN, Starting on 05/06/25 at 0314, Until Discontinued, Line Care, After every IV line usesulfamethoxazole 800 mg / trimethoprim 160 mg oral tablet (13 sources)Dihydrofolate Reductase Inhibitor Antibacterial, Sulfonamide AntimicrobialStart: 01-24-2025 End: 98-82-4668pkgi 1 tablet by mouth twice dailySulfamethoxazole-Trimethoprim 800-160 mg tablet Discontinued 1 TAB PO Twice daily 10 0 January 24, 2025 12:00am January 27, 2025 1:26pmvitamin e 180 mg oral capsule (20 sources)Start: 09-04-2023 End: 90-16-6972vyil 1 capsule by mouth once dailyVitamin E (Dl, Acetate) 180 mg (400 unit) capsule Discontinued 180 MG PO Daily September 17, 2023 11:17am November 25, 2023 8:58amtake 1 capsule by mouth every twenty-four hoursVitamin E 400 UNIT 1 capsule Orally Once a day Active Problems Active Problems Problem ClassificationProblemDateDocumented DateEpisodic/ChronicAcute cerebrovascular disease (20 sources)Lacunar infarction; 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]03-31-8335MkqjibqPgtcmtw disorders (20 sources)Anxiety; Translations: [Anxiety disorder, unspecified]ChronicChronic kidney disease (20 sources)Chronic kidney disease stage 4; Translations: [Chronic kidney disease, stage 4 (severe)]Onset: 09-17-2021 Resolved: 79-54-4708LgwmwfmHknsxstwmdruu of surgical procedures or medical care (20 sources)Postoperative hemorrhage; Translations: [Postoperative hemorrhage from incision]86-78-4829UccycrnbRbwcghxinx associated with dizziness or vertigo (4 sources)Dizziness; Translations: [Dizziness and giddiness]Onset: 05-06-2025 58-34-0295EeygjiitEeqdhlwlvw heart failure; nonhypertensive (2 sources)Congestive heart failure; Translations: [Heart failure, unspecified] Onset: 369109-42-7631YlgblmkStkegzmo, dementia, and amnestic and other cognitive disorders (20 sources)Senile dementia; 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] 01-54-2564RrdlkhsMoskunciq of lipid metabolism (20 sources)Pure hyperglyceridemia; Translations: [Pure hyperglyceridemia]Onset: 71-93-3519AvkczpvXhqhsbuvow disorders (3 sources)Gastroesophageal reflux disease without esophagitis; Translations: [Gastro-esophageal reflux disease without esophagitis]ChronicEssential hypertension (20 sources)Essential (primary) hypertension; Translations: [Hypertensive disorder]Onset: 78-47-4348UtjsodoUtdtjtlznqgpj symptoms and ill-defined conditions (12 sources)Stress incontinence (female) (male); Translations: [Genuine stress incontinence]Onset: 89-81-8279NcvzyxhTaeyngejmlrey symptoms and ill-defined conditions (20 sources)Unspecified abnormal findings in urine; Translations: [Nocturia] Onset: 021454-05-0639TqzkesmjIvem and other crystal arthropathies (20 sources)Gout; Translations: [Gout, unspecified]Onset: ChronicHypertension with complications and secondary hypertension (20 sources)Chronic kidney disease due to hypertension; Translations: [Hypertensive chronic kidney disease withstage 1 through stage 4 chronic kidney disease, or unspecified chronic kidney disease]Onset: 12-16-2018 Resolved: 19-29-0777PrytpzfUldtxapmyqvkc and screening for infectious disease (7 sources)Encounter for immunization; Translations: [Vaccination given]Onset: 93-02-6635PaxujjwkAqmanwmmo (13 sources)Influenza due to Influenza A virus; Translations: [Influenza due to other identified influenza virus with other respiratory manifestations] 69-18-2421TyiixrziPobswvmdps disorders (3 sources)Menopause present; Translations: [Menopausal and female climacteric states]Onset: 19-53-8414GsyjohvOefp disorders (9 sources)Moderate recurrent major depression; Translations: [Major depressive disorder, recurrent, moderate]37-70-6289IcpgartNsxvdsrixutk breast conditions (1 source)MastodyniaEpisodicNonspecific chest pain (18 sources)Chest discomfort; Translations: [Other chest pain]Episodic Nutritional deficiencies (20 sources)Vitamin D deficiency; Translations: [Vitamin D deficiency, unspecified]Onset: 09-17-2021 Resolved: 01-26-6170MgbnhnnTlabotwexnew (20 sources)Age-related osteoporosis without current pathological fracture; Translations: [Osteoporosis]Onset: 70-01-2583GerfzrtUttgq aftercare (1 source)Encounter for removal of suturesEpisodicOther and unspecified benign neoplasm (3 sources)Benign neoplasm of stomach; Translations: [Polyp of stomach and duodenum]EpisodicOther circulatory disease (3 sources)Elevated blood-pressure reading without diagnosis of hypertension; Translations: [Elevated blood-pressure reading, without diagnosis of hypertension]EpisodicOther diseases of bladder and urethra (3 sources)Overactive bladder; Translations: [Overactive bladder]Onset: 84-71-2056QnxyhykDfiri diseases of kidney and ureters (20 sources)Cyst of kidney; Translations: [Cyst of kidney, acquired]09-16-2023 EpisodicOther gastrointestinal disorders (15 sources)Dark stools; Translations: [Other fecal abnormalities]EpisodicOther gastrointestinal disorders (3 sources)Abnormal feces; Translations: [Other fecal abnormalities]Episodic Other hereditary and degenerative nervous system conditions (20 sources)Restless legs; Translations: [Restless legs syndrome]11-25-2023 ChronicOther hereditary and degenerative nervous system conditions (11 sources)Restless legs syndrome; Translations: [Restless legs syndrome (RLS)] ChronicOther hereditary and degenerative nervous system conditions (9 sources)Mild cognitive disorder ; Translations: [Mild cognitive impairment, so stated]02-82-5123LplspglOafws lower respiratory disease (3 sources)Dyspnea; Translations: [Dyspnea, unspecified]EpisodicOther nervous system disorders (12 sources)Word finding difficulty ; Translations: [Other speech disturbances] 85-55-7702DdyruykrVdmyd non-traumatic joint disorders (18 sources)Pain in wrist; Translations: [Pain in left wrist]EpisodicOther non- traumatic joint disorders (1 source)Pain in right shoulderEpisodicOther nutritional; endocrine; and metabolic disorders (2 sources)Body mass index 30+ - -37-4449XfvlimoIrxex nutritional; endocrine; and metabolic disorders (20 sources)Hypercalcemia; Translations: [Hypercalcemia]41-72-9635HxiswkpWwbml nutritional; endocrine; and metabolic disorders (2 sources)HypercalcemiaChronicOther nutritional; endocrine; and metabolic disorders (3 sources)Obesity; Translations: [Obesity, unspecified]ChronicOther nutritional; endocrine; and metabolic disorders (3 sources)Simple obesity ; Translations: [Other obesity due to excess calories] Onset: 34-35-0985YlptpvlPnqvs nutritional; endocrine; and metabolic disorders (9 sources)Intolerance to lactose; Translations: [Lactose intolerance, unspecified]ChronicOther nutritional; endocrine; and metabolic disorders (1 source)Lactose intolerance, unspecifiedChronicOther nutritional; endocrine; and metabolic disorders (2 sources)Hyperuricemia without signs of inflammatory arthritis and tophaceous diseaseEpisodicOther nutritional; endocrine; and metabolic disorders (3 sources)Abnormal weight loss; Translations: [Abnormal weight loss]Episodic Other screening for suspected conditions (not mental disorders or infectious disease) (20 sources)Blood chemistry abnormal; Translations: [Abnormal finding of blood chemistry, unspecified]Onset: 277084-90-7276CdshrzijXmyex upper respiratory infections (3 sources)Chronic sinusitis; Translations: [Chronic sinusitis, unspecified] ChronicOther upper respiratory infections (4 sources)Acute maxillary sinusitis; Translations: [Acute recurrent maxillary sinusitis]Onset: 11-71-4777IwoinbmsWnfqxwfi codes; unclassified (20 sources)Memory impairment; Translations: [Other amnesia]88-93-8770Ycsmubfz Residual codes; unclassified (2 sources)Other amnesia; Translations: [Memory loss]15-57-2729DaieaprcRsgmffwy codes; unclassified (8 sources)Amnesia; Translations: [Other amnesia]01-79-6781NlmfimjuCcyupgvb codes; unclassified (4 sources)Menopause present; Translations: [Asymptomatic menopausal state] 89-89-2019QvghnxcpJuqgrof (6 sources)Syncope and collapse; Translations: [Syncope and collapse]Onset: 071067-33-5487WxbsbymwQobxqmq disorders (20 sources)Hypothyroidism, unspecified; Translations: [Hypothyroidism]Onset: 46-19-6727GigbqmcKtsmjwsvsjlm (2 sources)CONTACT W/AND (SUSP) EXPOS COVID-19; Translations: [CONTACT W/AND (SUSP) EXPOS COVID-19]Onset: 20-45-5432Vzslmqncdcnw (2 sources)G30.1 - Alzheimer's disease with late onset,F02.A0 - Dementia in other diseases classified elsewhere, mild, without behavioral disturbance, psychotic disturbance, mood disturbance, and anxiety,R41.3 - Other amnesiaUrinary tract infections (20 sources)Urinary tract infection, site not specified; Translations: [Urethral syndrome, unspecified]Onset: 09-17-2021 Resolved: 93-31-2550TogmlaucZxcrj infection (4 sources)COVID-19; Translations: [Disease caused by 2019-nCoV]Onset: 02-06-2022 Past or Other Problems Problem ClassificationProblemDateDocumented DateEpisodic/ChronicAbdominal pain (6 sources)Abdominal pain; Translations: [Unspecified abdominal pain]Onset: 37-86-9270WvrzvskuQokkk bronchitis (3 sources)Acute bronchitis; Translations: [Acute bronchitis, unspecified]Onset: 39-70-7423VltzaaqeDdlgtror reactions (3 sources)Inflammatory dermatosis; Translations: [Dermatitis, unspecified] Onset: 64-91-9001TnnelrxfChcnv bone disease and musculoskeletal deformities (3 sources)Bone density finding; Translations: [Other specified disorders of bone density and structure, unspecified site]Onset: 89-71-7672YinxlpxhKqkia connective tissue disease (3 sources)Decrease in height; Translations: [Loss of height]Onset: 12-25-2014 EpisodicOther connective tissue disease (3 sources)Nontraumatic rupture of rotator cuff of left shoulder; Translations: [Unspecified rotator cuff tearor rupture of left shoulder, not specified as traumatic]Onset: 39-07-5014GlbltxolXhftz diseases of kidney and ureters (8 sources)Cyst of kidney, acquired; Translations: [Cystic kidney disease, unspecified]Onset: 09-17-2021 Resolved: 16-91-4957IsslpqteVgybs female genital disorders (3 sources)Hypertrophy of uterus; Translations: [Hypertrophy of uterus]Onset: 29-01-5324UeeotgtiZekzn lower respiratory disease (3 sources)Cough; Translations: [Cough, unspecified]Onset: 32-86-4714Ilvtwdwf Other non-traumatic joint disorders (3 sources)Arthralgia of the ankle and/or foot; Translations: [Pain in unspecified ankle and joints of unspecified foot]Onset: 52-60-8264Cqnijlkj Unclassified (1 source)CONTACT W/AND (SUSP) EXPOS COVID-19; Translations: [CONTACT W/AND (SUSP) EXPOS COVID-19]Onset: 02-04-2022 Results Test NameValueInterpretationReference RangeFacilityCT CHEST PULMONARY EMBOLISM W CONTRASTon 17-96-8601AR CHEST PULMONARY EMBOLISM W CONTRASTADDENDUM: Correction: Small segmental filling defects are noted on the left and possibly the right. The findings were sent to the [facility] at 4:17 pm on 05/15/2025 to be communicated to a licensed caregiver. Electronically Signed by: RHETT TURPIN on ThuMay 15, 2025 4:22:09 PM EST EXAMINATION: CTA OF THE CHEST 05/05/2025 10:38 [...] No evidence of intraluminal filling defect to suggest pulmonary embolism. Main pulmonary artery is normal in caliber. Mediastinum: Cardiomegaly and calcific coronary artery disease. Calcified hilar nodes on the right. Great vessels normal. Lungs/pleura: Bilateral pulmonary congestion. Calcified granuloma right lower lobe. Mild pulmonary edema. Upper Abdomen: Abdominal aortic aneurysm measuring up to 33 mm in diameter. Soft Tissues/Bones: Spondylosis. IMPRESSION: 1. No evidence of pulmonary embolism. 2. Cardiomegaly with pulmonary congestion and mild pulmonary edema. Mild CHF. 3. Abdominal aortic aneurysm measuring up to 33 mm in diameter. 4. Calcific coronary artery disease. 5. Evidence of prior granulomatous disease. Interpreted by: Rhett Turpin MD Signed by: Rhett Turpin MD 05/15/25 Edited Result - FINALNoSycamore Medical CenterBrain Natri. Peptideon 40-08-2117Blizziwzspx peptide B (Bld) [Mass/Vol]962 pg/mLHigh0-450Bellevue HospitalComment on above:Performed By: #### BMP, TROPI, CDP, BNP, DIME #### [facility] [address] [place] [address] [place] [address] [employer] Vehicle Operator: Daniel Jenkins MDBrain Natriuretic Peptideon 05-06-2025 Interpretation and review of laboratory resultsAbnormLake Taylor Transitional Care Hospital Natriuretic peptide B (Bld) [Mass/Vol]962 pg/mLHigh0 - 450 pg/mLBon [facility] CenterBasic Metabolic Panelon 93-34-1437Iujfp gap [Moles/Vol]12 mmol/L9 - 16 mmol/LBon [facility] HospitalCalcium [Mass/Vol]9.7 mg/dL8.6 - 10.4 mg/dLBon [facility] HospitalChloride [Moles/Vol]103 mmol/L98 - 107 mmol/LBon [facility] HospitalCO2 [Moles/Vol]25 mmol/L20 - 31 mmol/LBon [facility] HospitalCreatinine [Mass/Vol]1.6 mg/dLHigh0.50 - 0.90 mg/dLBon [facility] HospitalEst, Glom Filt Glbv43Izh- PINFBon [facility] Comment on above: These results are not intended for use in patients <18 years of age. eGFR results are calculated without a race factor using the 2020 CKD-EPI equation. Careful clinical correlation is recommended, particularly when comparing to results calculated using previous equations. The CKD-EPI equation is less accurate in patients with extremes of muscle mass, extra-renal metabolism of creatine, excessive creatine ingestion, or following therapy that affects renal tubular secretion. Glucose [Mass/Vol]104 mg/xCKahn47 - 99 mg/dLBon [facility] HospitalPotassium [Moles/Vol]4.0 mmol/L3.7 - 5.3 mmol/LBon [facility] HospitalSodium [Moles/Vol] 140 mmol/L136 - 145 mmol/LBon [facility] HospitalUrea nitrogen [Mass/Vol]36 mg/dLHigh8 - 23 mg/dLBon [facility] HospitalUrea nitrogen/Creatinine [Mass ratio]23 mg/mgHigh9 - 20Bon [facility] HospitalBasic Metabolic Profon 19-51-1742Wrmcn gap [Moles/Vol]12 mmol/LNormal9-16B[facility]vue HospitalComment on above:Performed By: #### BMP, TROPI, CDP, BNP, DIME #### [address] [place] [address] [employer] Vehicle Operator: Daniel Jenkins MDBUN/CRE [id number] Hospital Comment on above:Performed By: #### BMP, TROPI, CDP, BNP, DIME #### [address] [place] [address] [employer] Vehicle Operator: DIXON Marshallalcium [Mass/Vol]9.7 mg/dLNormal8.6-10.4B[facility] HospitalComment on above:Performed By: #### BMP, TROPI, CDP, BNP, DIME #### [address] [place] [address] [employer] Vehicle Operator: DIXON Marshallhloride [Moles/Vol]103 mmol/GWdoepz81-241Kaagg Whittier HospitalComment on above:Performed By: #### BMP, TROPI, CDP, BNP, DIME #### [address] [place] [address] [employer] Rail Vehicle Operator: DIXON MarshallO2 [Moles/Vol]25 mmol/WRgkedc07-13QojtxBellevue HospitalComment on above:Performed By: #### BMP, TROPI, CDP, BNP, DIME #### [address] [place] [address] Light Rail Vehicle Operator: DIXON Marshallreatinine [Mass/Vol]1.6 mg/dLHigh0.50-0.90Trihealth HospitalComment on above:Performed By: #### BMP, TROPI, CDP, BNP, DIME #### [address] [address] Light Rail Vehicle Operator: Daniel Jenkins MDGFR/1.73 sq M.predicted among non-blacks MDRD (S/P/Bld) [Vol rate/Area]33 mL/min/{1.73_m2}Low>60Bellevue HospitalComment on above:Result Comment: These results are not intended for use in patients <18 years of age. eGFR results are calculated without a race factor using the 2020 CKD-EPI equation. Careful clinical correlation is recommended, particularly when comparing to results calculated using previous equations. The CKD-EPI equation is less accurate in patients with extremes of muscle mass, extra-renal metabolism of creatine, excessive creatine ingestion, or following therapy that affects renal tubular secretion.Performed By: #### BMP, TROPI, CDP, BNP, DIME #### [address] [place] [address] Light Rail Vehicle Operator: Daniel Jenkins MDGlucose [Mass/Vol]104 mg/eNHqyx35-15Htiah Tiffin HospitalComment on above:Performed By: #### BMP, TROPI, CDP, BNP, DIME #### [address] [place] [address] Light Rail Vehicle Operator: KRISH Marshallotassium [Moles/Vol]4.0 mmol/LNormal3.7-5.3MSumma Health Akron CampusComment on above:Performed By: #### BMP, TROPI, CDP, BNP, DIME #### [facility] [address] [place] [address] Light Rail Vehicle Operator: ALEJANDRO Marshallodium [Moles/Vol]140 mmol/PWuydiu079-551JwisrBellevue HospitalComment on above:Performed By: #### BMP, TROPI, CDP, BNP, DIME #### [facility] [address] [place] [address] Light Rail Vehicle Operator: Daniel Jenkins MDUrea nitrogen [Mass/Vol]36 mg/dLHigh8-23Bellevue HospitalComment on above:Performed By: #### BMP, TROPI, CDP, BNP, DIME #### [facility] [address] [place] [address] Light Rail Vehicle Operator: Daniel Jenkins [facility] with Auto Differentialon [id number] (Bld) [#/Vol]0.05 10*3/uLBon Secours Mercy HealthBasophils/100 WBC (Bld)1 %0 - 2 %[facility] HealthEosinophils (Bld) [#/Vol]0.26 10*3/uLBon Secours Mercy HealthEosinophils/100 WBC (Bld)3 %1 - 4 %[facility] HealthErythrocyte distribution width (RBC) [Ratio]12.7 %11.8 - 14.4 %[facility] Hematocrit (Bld) [Volume fraction]40.5 %36.3 - 47.1 %[facility] Hemoglobin (Bld) [Mass/Vol]13.8 g/dL11.9 - 15.1 g/dLBon Secours Mercy Health Immature granulocytes (Bld) [#/Vol][facility] HealthImmature granulocytes/100 WBC (Bld)0 %0[facility] HealthLymphocytes/100 WBC (Bld) 30 %24 - 43 %Community Health SystemsLymphocytes/100 WBC (Bld)2.38 %[facility] HospitalH (RBC) [Entitic mass]30.5 pg25.2 - 33.5 pgWythe County Community HospitalHC (RBC) [Mass/Vol]34.1 g/dL28.4 - 34.8 g/dLBon SecMercy Health Tiffin HospitalV (RBC) [Entitic vol]89.4 fL82.6 - 102.9 fLBon [facility]pelier HospitalMonocytes/100 WBC (Bld)7 %3 - 12 %Bon [facility] HospitalMonocytes/100 WBC (Bld)0.58 %Community Health SystemsNeutrophils/100 WBC (Bld)59 %36 - 65 %[facility] Health SystemsNucleated RBC/100 WBC (Bld) [Ratio]0.0 %0.0 per 100 WBCCommunity Health SystemsPlatelet mean volume (Bld) [Entitic vol]10.7 fL8.1 - 13.5 fLBon [facility] HealthPlatelets (Bld) [#/Vol]235 10*3/uLBon [facility] HealthRBC (Bld) [#/Vol]4.53 10*6/uL3.95 - 5.11 m/uLCommunity Health SystemsSegmented neutrophils/100 WBC (Bld)4.70 %Community Health SystemsWBC other (Bld) [#/Vol] 8.0Bon [facility] Health CenterCBC with Diffon 05-05-2025 Abs. Basophil0.05 k/uLNormal0.00-0.20Bellevue HospitalComment on above: Performed By: #### BMP, TROPI, CDP, BNP, DIME #### [facility] [address] [place] [address] [place] [address] [employer] Rail Vehicle Operator: Yenifer Marshall.Imm.Granulocyte<0.15Yjhtes7.00-0.30Bellevue HospitalComment on above:Performed By: #### BMP, TROPI, CDP, BNP, DIME #### [address] [place], [place] [address] Light Rail Vehicle Operator: Yenifer Marshall.Neutrophil (Seg)4.70 k/uLNormal1.50-8.10Bellevue HospitalComment on above:Performed By: #### BMP, TROPI, CDP, BNP, DIME #### [address] [place] [address] Light Rail Vehicle Operator: Daniel Jenkins MDBasophils/100 WBC (Bld)1 %Normal0-2MSumma Health Akron CampusComment on above:Performed By: #### BMP, TROPI, CDP, BNP, DIME #### [address] [place] [address] Light Rail Vehicle Operator: Daniel Jenkins MDEosinophils (Bld) [#/Vol]0.26 10*3/uLNormal 0.00-0.44Bellevue HospitalComment on above:Performed By: #### BMP, TROPI, CDP, BNP, DIME #### [address] [place] [address] Light Rail Vehicle Operator: Daniel Jenkins MDEosinophils/100 WBC (Bld)3 %Normal1-4Bellevue HospitalComment on above:Performed By: #### BMP, TROPI, CDP, BNP, DIME #### [address] [place] [address] Light Rail Vehicle Operator: Daniel Jenkins MDErythrocyte distribution width (RBC) [Ratio]12.7 % Shucnu79.8-14.4Bellevue HospitalComment on above:Performed By: #### BMP, TROPI, CDP, BNP, DIME #### [address] [place] [id number] Light Rail Vehicle Operator: Daniel Jenkins MDHematocrit (Bld) [Volume fraction]40.5 %Normal 36.3-47.1MKettering Health – Soin Medical Center HospitalComment on above:Performed By: #### BMP, TROPI, CDP, BNP, DIME #### [address] [place] [address] Light Rail Vehicle Operator: Daniel Jenkins MDHemoglobin (Bld) [Mass/Vol]13.8 g/dLNormal 11.9-15.1MKettering Health – Soin Medical Center HospitalComment on above:Performed By: #### BMP, TROPI, CDP, BNP, DIME #### [address] [place], [place] [address] [employer] Vehicle Operator: Daniel Jenkins MDImmature granulocytes/100 WBC (Bld)0 %Nhrubs6WoqioBellevue HospitalComment on above:Performed By: #### BMP, TROPI, CDP, BNP, DIME #### [address] [place], [place] [address] [employer] Rail Vehicle Operator: Daniel Jenkins MDLymphocytes (Bld) [#/Vol]2.38 10*3/uLNormal 1.10-3.70Bellevue HospitalComment on above:Performed By: #### BMP, TROPI, CDP, BNP, DIME #### [address] [place] [address] Light Rail Vehicle Operator: Nicol Marshallmphocytes/100 WBC (Bld)30 %Gaitrm22-01LrzhrBellevue HospitalComment on above:Performed By: #### BMP, TROPI, CDP, BNP, DIME #### [address] [place], [facility]83 Light Rail Vehicle Operator: JERSEY MarshallCH (RBC) [Entitic mass]30.5 vfFkindx87.2-33.5 Trihealth HospitalComment on above:Performed By: #### BMP, TROPI, CDP, BNP, DIME #### [address] [place], [facility]83 Light Rail Vehicle Operator: JERSEY MasrhallCHC (RBC) [Mass/Vol]34.1 g/oLPmvzmx48.4-34.8Bellevue HospitalComment on above:Performed By: #### BMP, TROPI, CDP, BNP, DIME #### [address] [place], [place] [address] [employer] Vehicle Operator: JERSEY MarshallCV (RBC) [Entitic vol]89.4 zLNceilk56.6-102.9 Bellevue HospitalComment on above:Performed By: #### BMP, TROPI, CDP, BNP, DIME #### [address] [place], [place] [address] [employer] Vehicle Operator: JERSEY Marshallonocytes (Bld) [#/Vol]0.58 10*3/uLNormal0.10-1.20 Bellevue HospitalComment on above:Performed By: #### BMP, TROPI, CDP, BNP, DIME #### [address] [place], [place] [address] [employer] Vehicle Operator: JERSEY Marshallonocytes/100 WBC (Bld)7 %Normal3-12Trihealth HospitalComment on above:Performed By: #### BMP, TROPI, CDP, BNP, DIME #### [address] [place], [place] [address] [employer] Rail Vehicle Operator: Daniel Jenkins MDNeutrophil (Seg)59 %Hhodfo56-90Xzkbg Tiffin HospitalComment on above:Performed By: #### BMP, TROPI, CDP, BNP, DIME #### [address] [place], [facility]83 Light [employer] Vehicle Operator: Daniel Jenkins MDNRBC Automated0.0 per 100 WBCNormal0.0Trihealth HospitalComment on above:Performed By: #### BMP, TROPI, CDP, BNP, DIME #### [address] [place] [address] [employer] Rail Vehicle Operator: Wayne Marshall mean volume (Bld) [Entitic vol]10.7 fL Normal8.1-13.5Bellevue HospitalComment on above:Performed By: #### BMP, TROPI, CDP, BNP, DIME #### [address] [place], [facility]83 [employer] Vehicle Operator: Yvonne Marshall (Bld) [#/Vol]235 10*3/kICpxsju521-490 Bellevue HospitalComment on above:Performed By: #### BMP, TROPI, CDP, BNP, DIME #### [address] [place], [facility]83 Light Rail Vehicle Operator: NIKHIL Marshall (Bld) [#/Vol]4.53 10*6/uLNormal3.95-5.11Bellevue HospitalComment on above:Performed By: #### BMP, TROPI, CDP, BNP, DIME #### [address] [place], [place] [address] [employer] Rail Vehicle Operator: NEGRITO Marshall (Bld) [#/Vol]8.0 10*3/uLNormal3.5-11.3MSumma Health Akron CampusComment on above:Performed By: #### BMP, TROPI, CDP, BNP, DIME #### [address] [place], [place] [id number] [employer] Vehicle Operator: BUNNY Marshall CHEST PULMONARY EMBOLISM W CONTRASTon . No evidence of pulmonary embolism. 2. Cardiomegaly with pulmonary congestion and mild pulmonary edema. Mild CHF. 3. Abdominal aortic aneurysm measuring up to 33 mm in diameter. 4. Calcific coronary artery disease. 5. Evidence of prior granulomatous disease. [facility] RIS CONSOLIDATEDEXAMINATION: CTA OF THE CHEST 05/05/2025 10:38 pm [...] No evidence of intraluminal filling defect to suggest pulmonary embolism. Main pulmonary artery is normal in caliber. Mediastinum: Cardiomegaly and calcific coronary artery disease. Calcified hilar nodes on the right. Great vessels normal. Lungs/pleura: Bilateral pulmonary congestion. Calcified granuloma right lower lobe. Mild pulmonary edema. Upper Abdomen: Abdominal aortic aneurysm measuring up to 33 mm in diameter. Soft Tissues/Bones: Spondylosis. [facility] Rhett Martinez MD - 05/05/2025 EXAMINATION: CTA OF THE [...] No evidence of intraluminal filling defect to suggest pulmonary embolism. Main pulmonary artery is normal in caliber. Mediastinum: Cardiomegaly and calcific coronary artery disease. Calcified hilar nodes on the right. Great vessels normal. Lungs/pleura: Bilateral pulmonary congestion. Calcified granuloma right lower lobe. Mild pulmonary edema. Upper Abdomen: Abdominal aortic aneurysm measuring up to 33 mm in diameter. Soft Tissues/Bones: Spondylosis. IMPRESSION: 1. No evidence of pulmonary embolism. 2. Cardiomegaly with pulmonary congestion and mild pulmonary edema. Mild CHF. 3. Abdominal aortic aneurysm measuring up to 33 mm in diameter. 4. Calcific coronary artery disease. 5. Evidence of prior granulomatous disease. [facility] HealthRadiology Study observation (narrative)[facility] HEAD WO CONTRASTon [id number] HEAD WO CONTRASTEXAMINATION: CT OF THE HEAD WITHOUT CONTRAST 05/05/2025 [...] microvascular ischemic change. Intracranial atherosclerosis. In a moderate nonspecific white matter disease. Remote lacunar infarct left cerebellar hemisphere. ORBITS: The visualized portion of the orbits demonstrate no acute abnormality. SINUSES: The visualized paranasal sinuses and mastoid air cells demonstrate no acute abnormality. SOFT TISSUES/SKULL: No acute abnormality of the visualized skull or soft tissues. IMPRESSION: No acute intracranial abnormality. Interpreted by: Rhett Turpin MD Signed by: Rhett Turpin MD 05/05/25 Final resultNormalMercy Danbury Hospital Head WO contraston [id number] acute intracranial abnormality. [facility] RIS CONSOLIDATEDEXAMINATION: CT OF THE HEAD WITHOUT CONTRAST 05/05/2025 [...] microvascular ischemic change. Intracranial atherosclerosis. In a moderate nonspecific white matter disease. Remote lacunar infarct left cerebellar hemisphere. ORBITS: The visualized portion of the orbits demonstrate no acute abnormality. SINUSES: The visualized paranasal sinuses and mastoid air cells demonstrate no acute abnormality. SOFT TISSUES/SKULL: No acute abnormality of the visualized skull or soft tissues. [facility] Rhett Martinez MD - 05/05/2025 EXAMINATION: CT OF THE [...] microvascular ischemic change. Intracranial atherosclerosis. In a moderate nonspecific white matter disease. Remote lacunar infarct left cerebellar hemisphere. ORBITS: The visualized portion of the orbits demonstrate no acute abnormality. SINUSES: The visualized paranasal sinuses and mastoid air cells demonstrate no acute abnormality. SOFT TISSUES/SKULL: No acute abnormality of the visualized skull or soft tissues. IMPRESSION: No acute intracranial abnormality. [facility] SystemsRadiology Study observation (narrative)Community Health SystemsCT Head WO contrastOrdered By: Rhett Turpin on [id number] Work Phone: CTA HEAD NECK W CONTRASTon [id number] HEAD NECK W CONTRASTEXAMINATION: CTA OF THE HEAD AND NECK WITH CONTRAST 05/05/2025 10:29 pm: TECHNIQUE: CTA of the head and neck was performed with the administration of intravenous contrast. Multiplanar reformatted images are provided for review. MIP images are provided for review. Stenosis of [...] ARCH/ARCH VESSELS: No dissection or arterial injury. No significant stenosis of the brachiocephalic or subclavian arteries. CAROTID ARTERIES: No dissection, arterial injury, or hemodynamically significant stenosis by NASCET criteria. VERTEBRAL ARTERIES: No dissection, arterial injury, or significant stenosis. SOFT TISSUES: The lung apices are clear. No cervical or superior mediastinal lymphadenopathy. The larynx and pharynx are unremarkable. No acute abnormality of the salivary and thyroid glands. BONES: No acute osseous abnormality. CTA HEAD: ANTERIOR CIRCULATION: No significant stenosis of the intracranial internal carotid, anterior cerebral, or middle cerebral arteries. No aneurysm. 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 Moderate stenoses of the vertebral arteries are also present. Bilateral posterior communicating arteries are present. The director strategy are patent to the extent visualized. No aneurysm. OTHER: No dural venous sinus thrombosis on this non-dedicated study. BRAIN: See separately dictated noncontrast head CT report. 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 Recommend MRI of the brain for further evaluation as well as surgical consultation. Interpreted by: Gentry Allison MD Signed by: Gentry Allison MD 05/05/25 Final resultNormalMercy Stamford Hospital Head vessels and Neck vessels W contrast Tanya [id number] to severe stenosis of the proximal basilar artery. Recommend MRI of the brain for further evaluation as well as surgical consultation. [facility] RIS CONSOLIDATEDEXAMINATION: CTA OF THE HEAD AND NECK WITH CONTRAST 05/05/2025 10:29 pm: TECHNIQUE: CTA of the head and neck was performed with the administration of intravenous contrast. Multiplanar reformatted images are provided for review. MIP images are provided for review. Stenosis of [...] ARCH/ARCH VESSELS: No dissection or arterial injury. No significant stenosis of the brachiocephalic or subclavian arteries. CAROTID ARTERIES: No dissection, arterial injury, or hemodynamically significant stenosis by NASCET criteria. VERTEBRAL ARTERIES: No dissection, arterial injury, or significant stenosis. SOFT TISSUES: The lung apices are clear. No cervical or superior mediastinal lymphadenopathy. The larynx and pharynx are unremarkable. No acute abnormality of the salivary and thyroid glands. BONES: No acute osseous abnormality. CTA HEAD: ANTERIOR CIRCULATION: No significant stenosis of the intracranial internal carotid, anterior cerebral, or middle cerebral arteries. No aneurysm. 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 Moderate stenoses of the vertebral arteries are also present. Bilateral posterior communicating arteries are present. The director strategy are patent to the extent visualized. No aneurysm. OTHER: No dural venous sinus thrombosis on this non-dedicated study. BRAIN: See separately dictated noncontrast head CT report. [facility] Gentry Olson MD - 05/05/2025 EXAMINATION: CTA OF THE HEAD AND NECK WITH CONTRAST 05/05/2025 10:29 pm: TECHNIQUE: CTA of the head and neck was performed with the administration of intravenous contrast. Multiplanar reformatted images are provided for review. MIP images are provided for review. Stenosis of [...] ARCH/ARCH VESSELS: No dissection or arterial injury. No significant stenosis of the brachiocephalic or subclavian arteries. CAROTID ARTERIES: No dissection, arterial injury, or hemodynamically significant stenosis by NASCET criteria. VERTEBRAL ARTERIES: No dissection, arterial injury, or significant stenosis. SOFT TISSUES: The lung apices are clear. No cervical or superior mediastinal lymphadenopathy. The larynx and pharynx are unremarkable. No acute abnormality of the salivary and thyroid glands. BONES: No acute osseous abnormality. CTA HEAD: ANTERIOR CIRCULATION: No significant stenosis of the intracranial internal carotid, anterior cerebral, or middle cerebral arteries. No aneurysm. 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 Moderate stenoses of the vertebral arteries are also present. Bilateral posterior communicating arteries are present. The director strategy are patent to the extent visualized. No aneurysm. OTHER: No dural venous sinus thrombosis on this non-dedicated study. BRAIN: See separately dictated noncontrast head CT report. 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 Recommend MRI of the brain for further evaluation as well as surgical consultation. [facility] Color EightRadiology Study observation (narrative)[facility] Color EightCTA Head vessels and Neck vessels W contrast IVOrdered By: Gentry Allison on [id number] Work Phone: [phone]-Nefbh Teston [id number]-Dimer Test3.18 ug/mL FEU High0.00-0.59[facility] on above:Result Comment: When combined with a low clinical probability, [...] medical history, clinical presentation, and other findings. Elevated levels of D-dimer activity can be [...] below the cutoff of 0.5 ug/mL FEU. This is known to be more prevalent in patients with distal DVT.Performed By: #### BMP, TROPI, CDP, BNP, DIME #### [facility] [address] [place] [address] Light Rail Vehicle Operator: Daniel Jenkins MDDMeg, Quantitativeon [id number] D-dimer FEU (PPP) [Mass/Vol]3.18Sov[facility] Health - DanvilleComment on above: When combined with a low clinical probability, [...] medical history, clinical presentation, and other findings. Elevated levels of D-dimer activity can be [...] below the cutoff of 0.5 ug/mL FEU. This is known to be more prevalent in patients with distal DVT. Interpretation and review of laboratory resultsAbnormalMary Washington HealthcareMicroscopic Urinalysison [id number] LM Ql (Urine sed)TRACEAbnormalNoneBon [facility]pelier HospitalEpithelial cells LM.HPF (Urine sed) [#/Area]2 TO 5Bon [facility] HospitalInterpretation and review of laboratory resultsAbnormLake Taylor Transitional Care HospitalRBC LM.HPF (Urine sed) [#/Area]NoneBon [facility] Montpelier HospitalWBC LM.HPF (Urine sed) [#/Area]2 TO 5Bon [facility] CenterNo Panel Informationon 05-05-2025 Interpretation and review of laboratory resultsAbnoBon Secours St. [facility] Bon [facility]ier HospitalTroponinon [id number] and review of laboratory resultsAbChesapeake Regional Medical CenterTroponin I.cardiac High sensitivity method [Mass/Vol]26 ng/LHigh0 - 14 ng/LBon [facility] Comment on above:High Sensitivity Troponin values cannot be compared with other Troponin methodologies.[facility] Health Systemnin, High Sens26 ng/LHigh 0-14Bellevue HospitalComment on above:Result Comment: High Sensitivity Troponin values cannot be compared with other Troponin methodologies.Performed By: #### TROPI ####[address] [place] [address] Lab Director: Daniel Jenkins MD Troponin I.cardiac High sensitivity method [Mass/Vol]29 ng/LHigh0 - 14 ng/LBon Park[facility] Health Montpelier HospitalComment on above:High Sensitivity Troponin values cannot be compared with other Troponin methodologies.Troponin, High Sens29 ng/LHigh0-14 [facility]vue HospitalComment on above:Result Comment: High Sensitivity Troponin values cannot be compared with other Troponin methodologies.Performed By: #### BMP, TROPI, CDP, BNP, DIME #### [facility] [address] [place] [address] [place] [address] [employer] Vehicle Operator: Daniel Jenkins MDUA w/Reflex Cultureon [id number], SemiQt,UrNegativeNormalNEGBellevue HospitalComment on above:Performed By: #### UAX, UMICAO #### [facility] [address] [place], [place] [address]83 [employer] Vehicle Operator: Ioana Marshall, UrineNegativeMercer County Community Hospital Comment on above:Performed By: #### UAX, UMICAO #### [facility] [address] [place], [place] [address] [employer] Rail Vehicle Operator: DIXON Marshalllarity (U)ClearNormalCLEARBellevue Hospital Comment on above:Performed By: #### UAX, UMICAO #### [facility] [address] [place], [place] [id number] Light Rail Vehicle Operator: DIXON Marshallolor (U)YellowNormalYELMerSaint Francis Hospital & Medical Center Comment on above:Performed By: #### UAX, UMICAO #### [facility] [address] [place] [address] [place], [place] [id number] [employer] Vehicle Operator: Daniel Jenkins MDGlucose Ql (U)NegativeNormalNEGMerSaint Francis Hospital & Medical CenterComment on above:Performed By: #### UAX, UMICAO #### [facility] [address] [place] [address] Dr. [place], [place] [address]83 [employer] Vehicle Operator: Daniel Jenkins MDKetones Ql (U)NegativeNormalNEGBellevue HospitalComment on above:Performed By: #### UAX, UMICAO #### [facility] [address] [place] [address] Dr. [place], [place] [address]183 [employer] Vehicle Operator: Daniel Jenkins MDLeukocyte esterase Test strip Ql (U)NegativeNormal NEGBellevue HospitalComment on above:Performed By: #### UAX, UMICAO #### [facility] [address] [place] [address] Dr[place], [place] [address]83 [employer] Vehicle Operator: Daniel Jenkins MDNitrite,UrNegativeCox BransonalMercy Health Comment on above:Performed By: #### UAX, UMICAO #### [facility] [address] [place], [place] 557[address]83 [employer] Vehicle Operator: KRISH MarshallH,Ur6.0Hzykdx4.0-9.0Bellevue HospitalComment on above:Performed By: #### UAX, UMICAO #### [facility] [address] [place] [address] Dr[address] [place], [place] [address]45683 [employer] Vehicle Operator: KRISH Marshallrotein Ql (U)NegativeNormalNEGTrihealth HospitalComment on above:Performed By: #### UAX, UMICAO #### [facility] [address] [place] [address] Dr. [place], [place] [address]83 [employer] Vehicle Operator: Alexa Marshall. [place],Ur1.810Otyfhw7.010-1.020Bellevue HospitalComment on above:Performed By: #### UAX, SHILPA #### [facility] [address] [place] [address] Dr. [place], [facility]83 Light [employer] Vehicle Operator: Daniel Jenkins MDUrobilinogen,UrNormalNormal0.0-1.0Bellevue HospitalComment on above:Performed By: #### UAX, UMICAO #### [address] [place], [place] 8249483 [employer] Vehicle Operator: Daniel Jenkins MDUrinalysis with Reflex to Cultureon 05-05-2025 Bilirubin Ql (U)NegativeNEGATIVEBon Secours Mercy HealthClarity (U)ClearClearBon Secours Protestant Deaconess Hospitaly HealthColor (U)YellowYellowBon Secours [facility] HealthGlucose Test strip (U) [Mass/Vol]NegativeNEGATIVE mg/dLBon Secours Protestant Deaconess Hospitaly HealthHemoglobin Auto test strip Ql (U)NegativeNEGATIVEBon Secours Mercy HealthKetones (U) [Mass/Vol]NegativeNEGATIVE mg/dLBon Secours Fostoria City HospitalLeukocyte esterase Test strip Ql (U)NegativeNEGATIVEBon Secours Mercy HealthNitrite Ql (U)Negative NEGATIVEBon Secours Mercy HealthpH (U)6.0 [pH]5.0 - 9.0Bon [facility] Protein (U) [Mass/Vol]NegativeNEGATIVE mg/dLBon [facility] HospitalSpecific gravity (U) [Rel density]1.0201.010 - 1.020Bon [facility] HospitalUrobilinogen Qn (U)Normal0.0 - 1.0 EU/dLBon [facility] HospitalBon [facility] Urinalysis,Microon 91-35-4325IabsifzaGJDKQRhncdannUBFXVwezz [facility] Comment on above:Performed By: #### UAX, UMICAO #### [facility] [address] [place] [address] Light Rail Vehicle Operator: Daniel Jenkins MDEpithelial cells LM Ql (Urine sed)2 TO 4Qovwqf5-73 [facility]vue HospitalComment on above:Performed By: #### SALENA, PEDRO PABLOO #### [facility] [address] [place], [place] [id number] [employer] Vehicle Operator: Daniel Jenkins MDUrine RBC'sNoneNormal0-2MSumma Health [facility] Comment on above:Performed By: #### UAX, UMICAO #### [facility] [address] [place], [place] [id number] [employer] Rail Vehicle Operator: Daniel Jenkins MDUrine WBC's2 TO 4Dkyres8-8JamxjBellevue Hospital Comment on above:Performed By: #### UAX, UMICAO #### [facility] [address] [place], [place] [id number] [employer] Vehicle Operator: Daniel Jenkins MDLaboratory - Chemistry and Chemistry - challenge Ordered By: Shonna Villeda on 31-23-7482Zdzyqgrmy Ql (U)[facility] CenterGlucose (U) [Mass/Vol]NegativeTrihealth Mccullough-Hyde Memorial HospitalKetones Ql (U)[facility] CenterpH (U)6.5 [pH] [facility] Hospitalpecific gravity (U) [Rel density]1.010 [facility] HospitalUrobilinogen (U) [Mass/Vol]0.2 mg/dLTrihealth Mccullough-Hyde Memorial HospitalLaboratory - Specimen informationOrdered By: Shonna Villeda on 58-12-4172Ymwnsvwxyw (U)cloudyTrihealth Mccullough-Hyde Memorial Hospital Color (U)yellowTrihealth Mccullough-Hyde Memorial HospitalLaboratory - UrinalysisOrdered By: Shonna Villeda on 62-53-3923Uzwcvbpgs esterase Test strip Ql (U)++ [facility] HospitalNitrite Ql (U)PositiveTrihealth Mccullough-Hyde Memorial HospitalProtein Ql (U)+[facility] HospitalNo Panel InformationOrdered By: Shonna Villeda on 60-29-9935Rczyv Occult Blood11-19 [facility] Memorial HospitalUrine Cultureon 84-84-7472Eydzxrol identified Cx Nom (U)ORGANISM: Klebsiella pneumoniae (O:KLEPNE) [place] Count >100,000 Aerobic FRED Charge (NMIC56) SUSCEPTIBILITY ORGANISM: O:KLEPNE ANTIBIOTIC INTERPRETATION FRED Amikacin S <16 Amoxacillin/K Clavulanate S <8 Ampicillin/Sulbactam S <4 Aztreonam S <4 Cefazolin S <2 Cefepime S <2 Ceftazidime S <1 Ceftazidime/Avibactam S <4 Ceftolozane/Tazobactam S <2 Ceftriaxone S <1 Cefuroxime S 8 Ciprofloxacin S <0.25 Ertapenem S <0.5 Gentamicin S <2 Levofloxacin S <0.5 Meropenem S <1 Meropenem/Vaborbactam S <2 Nitrofurantoin S <32 Piperacillin/Tazobactam S <8 Tetracycline S <4 Tigecycline S <2 Tobramycin S <2 Trimethoprim/Sulfamethoxazole S <0.5 S = SUSCEPTIBLE I = INTERMEDIATE R [...] RESISTANT TO ALL B-LACTAM DRUGS. PERFORMED BY: [facility] [address] [place] [address] PATHOLOGIST ENAMEL BURNER DAVID MAST M.D.NormalHca Florida Blake Hospital Physician GroupComment on above: Performed By: #### CREAT, B12, TSH3 #### [place] [address] USAUrine cultureOrdered By: David Pike on 04-21-2025 Bacteria identified Cx Nom (U)Klebsiella pneumoniaeAbnormalTrihealth Mccullough-Hyde Memorial HospitalLaboratory - Chemistry and Chemistry - challengeOrdered By: David Pike on 12-38-9638Dalsgtcpj Ql (U)[facility] Glucose (U) [Mass/Vol]NegativeTrihealth Mccullough-Hyde Memorial HospitalKetones Ql (U) [facility] CenterpH (U)5 [pH][facility] Hospitalpecific gravity (U) [Rel density]1.000[facility] Urobilinogen (U) [Mass/Vol]0.2 mg/dLTrihealth Mccullough-Hyde Memorial HospitalLaboratory - Specimen informationOrdered By: David Pike on 21-67-6940Qlasnknspg (U)clear [facility] Memorial HospitalColor (U)yellowTrihealth Mccullough-Hyde Memorial HospitalLaboratory - UrinalysisOrdered By: David Pike on 82-89-2984Gdhbpscwz esterase Test strip Ql (U)[facility] CenterNitrite Ql (U)[facility] CenterProtein Ql (U)[facility] CenterNo Panel InformationOrdered By: David Pike on 17-63-4400Xpgrg Occult BloodNegativeTrihealth Mccullough-Hyde Memorial HospitalLaboratory - Chemistry and Chemistry - challengeOrdered By: David Pike on 03-14-2025 Bilirubin Ql (U)[facility] CenterGlucose (U) [Mass/Vol] NegativeTrihealth Mccullough-Hyde Memorial HospitalKetones Ql (U)[facility] CenterpH (U)5 [pH][facility] Hospitalpecific gravity (U) [Rel density]1.005[facility] Memorial HospitalUrobilinogen (U) [Mass/Vol]0.2 mg/dLTrihealth Mccullough-Hyde Memorial HospitalLaboratory - Specimen informationOrdered By: David Pike on 79-83-6761Uveqorntfm (U)verycloudy [facility] Memorial HospitalColor (U)yellowTrihealth Mccullough-Hyde Memorial HospitalLaboratory - UrinalysisOrdered By: David Pike on 84-71-5221Zqmauabmv esterase Test strip Ql (U)+++[facility] Memorial HospitalNitrite Ql (U) PositiveTrihealth Mccullough-Hyde Memorial HospitalProtein Ql (U)NegativeTrihealth Mccullough-Hyde Memorial HospitalNo Panel InformationOrdered By: David Pike on 88-62-3629Tozfj Occult Blood+[facility] HospitalBasophils/100 WBC Manual cnt (Bld)Ordered By: Carolyn Marker on 14-59-1285Pwvcrxejk/100 WBC (Bld) 1.0 %0.2-2.0[facility] Memorial HospitalEosinophils/100 WBC Manual cnt (Bld)Ordered By: Carolyn Marker on 34-86-7942Zlpbmcyhvgg/100 WBC (Bld)2.0 % 0.9-7.0[facility] Memorial HospitalErythrocyte distribution width Auto (RBC) [Ratio]Ordered By: David Pike on 18-04-0890Hshbfkfeeqh distribution width (RBC) [Ratio]13.2 %11.0-15.0[facility] Memorial HospitalGlobulin Calc (S) [Mass/Vol]Ordered By: Carolyn Marker on 38-64-2157Kehkvgmm (S) [Mass/Vol] 3.5 g/dLTrihealth Mccullough-Hyde Memorial HospitalGlomerular filtration rate (GFR) estimation in non- AmericanOrdered By: Carolyn Marker on 03-09-2025 GFR/1.73 sq M.predicted among non-blacks MDRD (S/P/Bld) [Vol rate/Area]30 mL/min/{1.73_m2}Low>=60 mL/min/1.73m 2FGalion Community Hospital Hematocrit Auto (Bld) [Volume fraction]Ordered By: David Pike on 03-09-2025 Hematocrit (Bld) [Volume fraction]39.5 %36.0-48.0[facility] HospitalHemoglobin [Mass/volume] in BloodOrdered By: David Pike on 03-09-2025 Hemoglobin (Bld) [Mass/Vol]13.1 g/dL12.0-16.0[facility] Laboratory - Chemistry and Chemistry - challengeOrdered By: Carolyn Marker on 84-05-9408Qcvcgvz [Mass/Vol]3.6 g/dL3.4-5.0[facility] HospitalALP [Catalytic activity/Vol]105 U/M41-739YrnpdhfopTrihealth Mccullough-Hyde Memorial HospitalALT [Catalytic activity/Vol]21 U/M54-60OwfsmcpxbTrihealth Mccullough-Hyde Memorial HospitalAST [Catalytic activity/Vol]18 U/T02-34MosrjpuqjTrihealth Mccullough-Hyde Memorial HospitalBilirubin [Mass/Vol]0.5 mg/dL0.2-1.0[facility] HospitalCalcium [Mass/Vol]8.8 mg/dL8.5-10.1FGalion Community HospitalChloride [Moles/Vol]106 mmol/L 98-107[facility] Memorial HospitalCO2 [Moles/Vol]25.5 mmol/L21.0-32.0 [facility] HospitalCreatinine [Mass/Vol]1.63 mg/dLHigh0.55-1.02 [facility] HospitalGFR/1.73 sq M.predicted MDRD (S/P/Bld) [Vol rate/Area]36 mL/min/{1.73_m2}Low>=60 mL/min/1.73m 2FGalion Community HospitalGlucose [Mass/Vol]123 mg/cRCtid73-109OdrfbqvnqTrihealth Mccullough-Hyde Memorial Hospital Potassium [Moles/Vol]3.9 mmol/L3.5-5.1FGalion Community HospitalProtein [Mass/Vol]7.1 g/dL6.4-8.2FProMedica Defiance Regional Hospitalodium [Moles/Vol]142 mmol/Y200-121YsdsixydnTrihealth Mccullough-Hyde Memorial HospitalUrea nitrogen [Mass/Vol]42.0 mg/dL High7.0-18.0[facility] Memorial HospitalUrea nitrogen/Creatinine [Mass ratio]25.8 mg/mgTrihealth Mccullough-Hyde Memorial HospitalLaboratory - Hematology and Cell countsOrdered By: Carolyn Marker on 05-87-7597Plclquspeay/100 WBC (Bld)6.0 %Low20.5-60.0[facility] HospitalMonocytes/100 WBC (Bld)5.0 % 1.7-12.0[facility] HospitalLeukocytes [#/volume] corrected for nucleated erythrocytes in Blood by Automated counOrdered By: David Pike on 10-00-5631OGQ corrected for nucl RBC Auto (Bld) [#/Vol]8.2 10 3/uL4.0-11.0 [facility] Auto (RBC) [Entitic mass]Ordered By: David Pike on 82-06-3824WQI (RBC) [Entitic mass]30.0 pg26.7-34.0[facility] Auto (RBC) [Mass/Vol]Ordered By: David Pike on 03-09-2025 MCHC (RBC) [Mass/Vol]33.2 g/dL29.9-35.2FHolzer Medical Center – JacksonV Auto (RBC) [Entitic vol]Ordered By: David Pike on 43-84-9170XPO (RBC) [Entitic vol]90.6 fL81.0-99.0[facility] HospitalNo Panel InformationOrdered By: Carolyn Marker on 31-25-9145Yqbitsls Basophils (Manual)0.08 10 3/uL0.00-0.10 [facility] HospitalEosinophils # (Manual)0.16 10 3/uL0.00-0.70 [facility] HospitalLymphocytes # (Manual)0.49 10 3/uLLow1.20-3.80 [facility] HospitalMonocytes # (Manual)0.41 10 3/uL0.30-0.80 [facility] Hospitalegmented Neutrophils # (Manual)7.05 10 3/uL High1.4-6.5FGalion Community HospitalTroponin I High Pknvhahqwxo56.5 pg/mL4.0-51.3FGalion Community HospitalComment on above:CUT-OFF POINTS HAVE BEEN ESTABLISHED BASED ON THE FOURTHUNIVERSAL DEFINITION OF MYOCARDIAL INFARCTION. THE UPPERREFERENCE LIMIT (URL) OF TROPONIN, DEFINED THE 99THPERCENTILE OF cTnI DISTRIBUTION IN A REFERENCE POPULATION,HAS BEEN CONFIRMED THE DECISION THRESHOLD FOR MIDIAGNOSIS.99TH PERCENTILE = 51.4 PG/MLNOTE: HIGH-SENSITIVITY TROPONIN ASSAY IS NOT INTENDED TO BEUSED IN ISOLATION BUT SHOULD BE INTERPRETED IN CONJUNCTIONWITH OTHER DIAGNOSTIC AND CLINICAL INFORMATION.Platelet mean volume Auto (Bld) [Entitic vol]Ordered By: David Pike on 01-80-1996Oqzujlyu mean volume (Bld) [Entitic vol]11.1 fL9.5-13.5 [facility] Memorial HospitalPlatelets Auto (Bld) [#/Vol]Ordered By: David Pike on 06-56-9704Ztbksggau (Bld) [#/Vol]168 10 3/tD750-128IwzxxpffhTrihealth Mccullough-Hyde Memorial HospitalRBC Auto (Bld) [#/Vol]Ordered By: David Pike on 38-08-7472VJL (Bld) [#/Vol]4.36 10 6/uL4.20-5.40Bl[facility]ton Hospitalegmented neutrophils/100 WBC Manual cnt (Bld)Ordered By: Carolyn Marker on 03-09-2025 Segmented neutrophils/100 WBC (Bld)86.0 %High43.0-75.0[facility]ton Hospitalerum or plasma albumin/globulin mass ratioOrdered By: Carolyn Marker on 83-59-3539Coztfwn/Globulin [Mass ratio]1.0 {ratio}[facility] Hospitalerum or plasma anion gap determinationOrdered By: Carolyn Marker on 50-28-8924Gitfn gap [Moles/Vol]14.4 mmol/LFGalion Community Hospital Laboratory - Chemistry and Chemistry - challengeOrdered By: David Pike on 73-76-5554Bfwrfotpf Ql (U)NegativeTrihealth Mccullough-Hyde Memorial HospitalGlucose (U) [Mass/Vol]NegativeTrihealth Mccullough-Hyde Memorial HospitalKetones Ql (U)Negative [facility] Memorial HospitalpH (U)5 [pH][facility] Specific gravity (U) [Rel density]1.000[facility] Urobilinogen (U) [Mass/Vol]0.2 mg/dLTrihealth Mccullough-Hyde Memorial HospitalLaboratory - Specimen informationOrdered By: David Pike on 61-45-3672Naynrnzkgh (U)clear [facility] Memorial HospitalColor (U)yellowTrihealth Mccullough-Hyde Memorial HospitalLaboratory - UrinalysisOrdered By: David Pike on 60-09-1852Hcofmznzx esterase Test strip Ql (U)NegativeTrihealth Mccullough-Hyde Memorial HospitalNitrite Ql (U)NegativeTrihealth Mccullough-Hyde Memorial HospitalProtein Ql (U)NegativeTrihealth Mccullough-Hyde Memorial HospitalNo Panel InformationOrdered By: David Pike on 32-59-2869Wbfdy Occult BloodNegativeTrihealth Mccullough-Hyde Memorial HospitalUrine Cultureon 31-10-8435Krtewtuk identified Cx Nom (U)30,000 colonies/ml mixed bacterial skin contaminants 2 Days PERFORMED BY: [place] [address] PATHOLOGIST ENAMEL BURNER DAVID MAST M.D.NormalThe [facility] Physician GroupComment on above: Performed By: #### CREAT, B12, TSH3 #### [place] [address] USAUrine cultureOrdered By: David Pike on 02-09-2025 Bacteria identified Cx Nom (U)2 DaysTrihealth Mccullough-Hyde Memorial HospitalLaboratory - Chemistry and Chemistry - challengeOrdered By: David Pike on 01-24-2025 Bilirubin Ql (U)NegativeTrihealth Mccullough-Hyde Memorial HospitalGlucose (U) [Mass/Vol] NegativeTrihealth Mccullough-Hyde Memorial HospitalKetones Ql (U)[facility] CenterpH (U)5 [pH][facility] Hospitalpecific gravity (U) [Rel density]1.000[facility] Memorial HospitalUrobilinogen (U) [Mass/Vol]0.2 mg/dLTrihealth Mccullough-Hyde Memorial HospitalLaboratory - Specimen informationOrdered By: David Pike on 99-36-8292Xtirbuqerd (U)cloudyTrihealth Mccullough-Hyde Memorial HospitalColor (U)[facility] - UrinalysisOrdered By: David Pike on 11-54-0959Ikgwarzeo esterase Test strip Ql (U)++[facility] Memorial HospitalNitrite Ql (U)Negative [facility] HospitalProtein Ql (U)NegativeTrihealth Mccullough-Hyde Memorial HospitalNo Panel InformationOrdered By: David Pike on 52-51-2725Iurye Occult Blood++[facility] Memorial HospitalUrine Cultureon 01-24-2025 Bacteria identified Cx Nom (U)ORGANISM: Escherichia coli (MDRO) (O:ESCCOLMDRO) [place] Count >100,000 Aerobic FRED Charge (NMIC56) SUSCEPTIBILITY ORGANISM: O:ESCCOLMDRO ANTIBIOTIC INTERPRETATION FRED Amikacin S <16 Amoxacillin/K Clavulanate S <8 Ampicillin R >16 Ampicillin/Sulbactam R >16 Aztreonam S <4 Cefazolin S <2 Cefepime S <2 Ceftazidime S <1 Ceftazidime/Avibactam S <4 Ceftolozane/Tazobactam S <2 Ceftriaxone S <1 Cefuroxime S <4 Ciprofloxacin S <0.25 Ertapenem S <0.5 Gentamicin S <2 Levofloxacin S <0.5 Meropenem S <1 Meropenem/Vaborbactam S <2 Nitrofurantoin S <32 Piperacillin/Tazobactam S <8 Tetracycline R >8 Tigecycline S <2 Tobramycin S <2 Trimethoprim/Sulfamethoxazole R >2 S = SUSCEPTIBLE I = [...] RESISTANT TO ALL B-LACTAM DRUGS. PERFORMED BY: [facility] [address] [place] [address] PATHOLOGIST ENAMEL BURNER DAVID MAST M.D.NormalThe [facility] Physician GroupComment on above: Performed By: #### CUU #### [facility] [address] [place] [address] USAUrine cultureOrdered By: David Pike on 01-24-2025 Bacteria identified Cx Nom (U)Escherichia coli (MDRO)AbnormalTrihealth Mccullough-Hyde Memorial HospitalMR head/brain wo/w conon 23-13-2643SH head/brain wo/w [facility] [place] [address] [place] [address] MRI Report Signed Patient: Ella Frank MR#: [id number] : 1940 Acct:[id number] Age/Sex: 84 / F ADM Date: 12/29/24 Loc: MR Room: Type: [facility] Attending Dr: Rosie Jones DO Copies [...] Hughes M.D. 12/29/2024 11:47 PM Dictation Location: RADIO-PC-17 Transcribed By: DEANNE 12/29/24 2347 Dictated By: Perez Hughes II, MD 12/29/24 4268 Signed By: 12/29/24 2347[facility] Physician GroupAlbumin [Mass/volume] in Serum or Plasma by Bromocresol green (BCG) dye binding methoOrdered By: Deepa Hendrickson on 47-71-4953Wmdifau BCG dye [Mass/Vol]4.2 g/dL3.5-5.7FGalion Community HospitalAppearance of UrineOrdered By: Deepa Hendrickson on 50-69-0018Pgsdvshevz (U) CloudyCritically abnormalCleWilson HealthComment on above: Order Comment: Name Collection Type:: Clean-Voided MidstreamPerformed By: #### MG, PROCRERAT, URIC, [id number], CBCNO, ADDONUAPLUS, RENAL, PTH #### [facility] [address] [place] [address] USABacteria [Presence] in Urine by AutomatedOrdered By: Deepa Hendrickson on 78-14-1945Unncqpbo Auto Ql (U)Rare [HPF]None SeenTrihealth Mccullough-Hyde Memorial HospitalBilirubin Test strip Ql (U)Ordered By: Deepa Hendrickson on 11-28-2024 Bilirubin Ql (U)NegativeNegativeTrihealth Mccullough-Hyde Memorial HospitalCalcium [Mass/volume] in Serum or PlasmaOrdered By: Deepa Hendrickson on 25-45-1148Tbsynpf [Mass/Vol]9.4 mg/dLNormal8.6-10.3FGalion Community HospitalComment on above:Performed By: #### MG, PROCRERAT, URIC, [id number], CBCNO, ADDONUAPLUS, RENAL, PTH #### [facility] [address] [place] [address] USACarbon dioxide, total [Moles/volume] in Serum or Plasma Ordered By: Deepa Hendrickson on 18-38-3737EF2 [Moles/Vol]29.2 mmol/JCdbzgx69.0-31.0 [facility] Memorial HospitalComment on above:Performed By: #### MG, PROCRERAT, URIC, [id number], CBCNO, ADDONUAPLUS, RENAL, PTH #### [facility] [address] [place] [id number] USAChloride [Moles/volume] in Serum or PlasmaOrdered By: Deepa Hendrickson on 52-48-7093Crpzonnh [Moles/Vol]104 mmol/TTarjog39-804FvuyjdlfcTrihealth Mccullough-Hyde Memorial HospitalComment on above:Performed By: #### MG, PROCRERAT, URIC, [id number], CBCNO, ADDONUAPLUS, RENAL, PTH #### [facility] [address] [place] [id number] USAColor of Urine by AutoOrdered By: Deepa Hendrickson on 55-46-0540Yphgp (U)YellowNormalYellowTrihealth Mccullough-Hyde Memorial HospitalComment on above:Order Comment: Name Collection Type:: Clean-Voided MidstreamPerformed By: #### MG, PROCRERAT, URIC, [id number], CBCNO, ADDONUAPLUS, RENAL, PTH #### [facility] [address] [place] [id number] USACreatinine [Mass/volume] in Serum or PlasmaOrdered By: Deepa Hendrickson on 20-64-7593Dnuoxphgmc [Mass/Vol]1.40 mg/dLHigh0.60-1.20[facility]Hy[facility] Memorial HospitalComment on above:Performed By: #### MG, PROCRERAT, URIC, [id number], CBCNO, ADDONUAPLUS, RENAL, PTH #### [facility] [address] [place] [id number] USACreatinine [Mass/volume] in UrineOrdered By: Deepa Hendrickson on 28-24-5037Tzhyxsjslo (U) [Mass/Vol]181.00 mg/dLTrihealth Mccullough-Hyde Memorial HospitalComment on above:No reference range establishedDipstick and Microscopicon 98-91-5536Kvsfdmtc,UrineRareNormalNone SeenThe [facility] Physician GroupComment on above:Order Comment: Name Collection Type:: Clean-Voided MidstreamPerformed By: #### MG, PROCRERAT, URIC, [id number], CBCNO, ADDONUAPLUS, RENAL, PTH #### [place] [address] USABilirubin,UrineNegativeNormalNegativeHca Florida [facility] Hospital Physician GroupComment on above:Order Comment: Name Collection Type:: Clean- Voided MidstreamPerformed By: #### MG, PROCRERAT, URIC, [id number], CBCNO, ADDONUAPLUS, RENAL, PTH #### [place] [address] USAGlucose Ql (U)NormalNormalNormalThe [facility] Physician GroupComment on above:Order Comment: Name Collection Type:: Clean-Voided MidstreamPerformed By: #### MG, PROCRERAT, URIC, [id number], CBCNO, ADDONUAPLUS, RENAL, PTH #### [place] [address] USAHyaline Casts,Izqzj9-3Jjvgxb9-3Jnt [facility] Physician GroupComment on above:Order Comment: Name Collection Type:: Clean-Voided MidstreamPerformed By: #### MG, PROCRERAT, URIC, [id number], CBCNO, ADDONUAPLUS, RENAL, PTH #### [place] [address] USAMucus,UrineRareNormalHca [facility] Physician GroupComment on above:Order Comment: Name Collection Type:: Clean-Voided MidstreamResult Comment: PERFORMED BY: [place] [address] PATHOLOGIST ENAMEL BURNER ROSMERY GÓMEZ M.D.Performed By: #### MG, PROCRERAT, URIC, [id number], CBCNO, ADDONUAPLUS, RENAL, PTH #### [place] [address] USANitrite,UrineNegativeNormalNegativeHca [facility] Hospital Physician GroupComment on above:Order Comment: Name Collection Type:: Clean-Voided MidstreamPerformed By: #### MG, PROCRERAT, URIC, [id number], CBCNO, ADDONUAPLUS, RENAL, PTH #### [place] [address] USAOccult Blood,UrineNegativeNormalNegativeHca [facility] Physician GroupComment on above:Order Comment: Name Collection Type:: Clean- Voided MidstreamPerformed By: #### MG, PROCRERAT, URIC, [id number], CBCNO, ADDONUAPLUS, RENAL, PTH #### [place] [address] USAProtein,UrineNegativeNormalNegativeThe [facility] Physician GroupComment on above:Order Comment: Name Collection Type:: Clean-Voided MidstreamPerformed By: #### MG, PROCRERAT, URIC, [id number], CBCNO, ADDONUAPLUS, RENAL, PTH #### [place] [address] USARBC,Kutoz7-8Wffeyw8-0Poh [facility] Physician GroupComment on above:Order Comment: Name Collection Type:: Clean-Voided MidstreamPerformed By: #### MG, PROCRERAT, URIC, [id number], CBCNO, ADDONUAPLUS, RENAL, PTH #### [place] [address] USASpecificy [place],Urine1.666Kscvkb0.001-1.030The [facility] Physician GroupComment on above:Order Comment: Name Collection Type:: Clean- Voided MidstreamPerformed By: #### MG, PROCRERAT, URIC, [id number], CBCNO, ADDONUAPLUS, RENAL, PTH #### [place] [address] USASquamous Epithelial Cell,Tbspo88-52Ztze7-9Zot [facility] Physician GroupComment on above:Order Comment: Name Collection Type:: Clean- Voided MidstreamPerformed By: #### MG, PROCRERAT, URIC, [id number], CBCNO, ADDONUAPLUS, RENAL, PTH #### [place] [address] USAUrobilinogen,UrineNormalNormalNormalThCaribou Memorial Hospital Physician GroupComment on above:Order Comment: Name Collection Type:: Clean- Voided MidstreamPerformed By: #### MG, PROCRERAT, URIC, [id number], CBCNO, ADDONUAPLUS, RENAL, PTH #### [facility] [address] [place] [id number] USAWBC CLUMP, UrineFewHighNone SeenThe [facility] Physician GroupComment on above:Order Comment: Name Collection Type:: Clean-Voided MidstreamPerformed By: #### MG, PROCRERAT, URIC, [id number], CBCNO, ADDONUAPLUS, RENAL, PTH #### [facility] [address] [place] [address] USAWBC,Xarii6-7Sdhd6-8Jvk [facility] Physician GroupComment on above:Order Comment: Name Collection Type:: Clean-Voided MidstreamPerformed By: #### MG, PROCRERAT, URIC, [id number], CBCNO, ADDONUAPLUS, RENAL, PTH #### [facility] [address] [place] [address] USAEpithelial cells.squamous [#/area] in Urine sediment by Automated countOrdered By: Deepa Hendrickson on 95-70-7417Qeclvqhkjq cells.squamous Auto (Urine sed) [#/Area]10-19 [HPF]High0-2FGalion Community Hospital Erythrocyte distribution width [Ratio] by Automated countOrdered By: Deepa Hendrickson on 29-10-7714Htreyevzocg distribution width (RBC) [Ratio]13.8 %Nqhjfc30.9-15.3 [facility] HospitalComment on above:Performed By: #### MG, PROCRERAT, URIC, [id number], CBCNO, ADDONUAPLUS, RENAL, PTH #### [facility] [address] [place] [address] USAErythrocytes [#/area] in Urine sediment by Automated count Ordered By: Deepa Hendrickson on 31-68-7147KNH Auto (Urine sed) [#/Area]1-2 [HPF]0-4 [facility] Memorial HospitalErythrocytes [#/volume] in Blood by Automated countOrdered By: Deepa Hendrickson on 43-78-9119HTI (Bld) [#/Vol]4.42 10*6/uLNormal 3.60-5.00[facility] HospitalComment on above:Performed By: #### MG, PROCRERAT, URIC, [id number], CBCNO, ADDONUAPLUS, RENAL, PTH #### [facility] [address] [place] [address] USAGlucose [Mass/volume] in Serum or PlasmaOrdered By: Deepa Hendrickson on 17-95-5500Eepodvr [Mass/Vol]91 mg/gHSfmqrb87-101AhokwnfwzTrihealth Mccullough-Hyde Memorial HospitalComment on above:ADA recommended reference rangeRandom Glucose Reference Range is dependent on time and content of last meal. Glucose of more than 200 mg/dL in a nonstressed, ambulatory subject supports the diagnosisof Diabetes Mellitus.Result Comment: Random Glucose Reference Range is dependent on time and content of last meal. Glucose of more than 200 mg/dL in a nonstressed, ambulatory subject supports the diagnosis of Diabetes Mellitus. ADA recommended reference rangePerformed By: #### MG, PROCRERAT, URIC, [id number], CBCNO, ADDONUAPLUS, RENAL, PTH #### [facility] [facility] [address] [place] [address] USAGlucose [Mass/volume] in Urine by Test stripOrdered By: Deepa Hendrickson on 54-06-2860Wyugrgr Test strip (U) [Mass/Vol]Normal mg/dLNormal [facility] HospitalHematocrit [Volume Fraction] of Blood by Automated countOrdered By: Deepa Hendrickson on 74-85-8268Oqimxkimti (Bld) [Volume fraction]38.8 %Xrsnwf37.0-46.4FGalion Community HospitalComment on above: Performed By: #### MG, PROCRERAT, URIC, [id number], CBCNO, ADDONUAPLUS, RENAL, PTH #### [facility] [address] [place] [address] USAHemoglobin Test strip Ql (U)Ordered By: Deepa Hendrickson on 39-07-9699Qydgpzreiq Ql (U)NegativeNegativeFirelands Regional Medical Center Hemoglobin [Mass/volume] in BloodOrdered By: Deepa Hendrickson on 43-59-7332Ebajuedfnu (Bld) [Mass/Vol]13.4 g/yDSnkqsw37.8-15.4FGalion Community Hospital Comment on above:Performed By: #### MG, PROCRERAT, URIC, [id number], CBCNO, ADDONUAPLUS, RENAL, PTH #### [facility] [address] [place] [address] USAHemogram CBC Without Diffon 04-45-1324Sqin Corpuscular HGB Conc34.4 g/fKLfyurd77.0-35.0The [facility] Physician GroupComment on above: Performed By: #### MG, PROCRERAT, URIC, [id number], CBCNO, ADDONUAPLUS, RENAL, PTH #### [place] [address] USAWBC (Bld) [#/Vol]7.3 10*3/uLNormal3.8-11.6The [facility] Physician GroupComment on above:Performed By: #### MG, PROCRERAT, URIC, [id number], CBCNO, ADDONUAPLUS, RENAL, PTH #### [place] [address] USAHyaline casts [#/area] in Urine sediment by Automated countOrdered By: Deepa Hendrickson on 94-71-8905Lizhzyp casts Auto (Urine sed) [#/Area]0-8 [LPF]0-8[facility] HospitalKetones [Presence] in Urine by Test stripOrdered By: Deepa Hendrickson on 36-76-3324Uupfrgm Ql (U)NegativeNormal NegativeTrihealth Mccullough-Hyde Memorial HospitalComment on above:Order Comment: Name Collection Type:: Clean-Voided MidstreamPerformed By: #### MG, PROCRERAT, URIC, [id number], CBCNO, ADDONUAPLUS, RENAL, PTH #### [place] [address] USALeukocyte clumps [Presence] in Urine by AutomatedOrdered By: Deepa Hendrickson on 58-74-4751Mrfgtuvcs clumps Auto Ql (U)Few [LPF]HighNone Seen [facility] HospitalLeukocyte esterase [Presence] in Urine by Test stripOrdered By: Deepa Hendrickson on 40-97-0918Nfmsjtqxs esterase Test strip Ql (U) NegativeNormalNegativeTrihealth Mccullough-Hyde Memorial HospitalComment on above:Order Comment: Name Collection Type:: Clean-Voided MidstreamPerformed By: #### MG, PROCRERAT, URIC, [id number], CBCNO, ADDONUAPLUS, RENAL, PTH #### [facility] [address] [place] [id number] USALeukocytes [#/area] in Urine sediment by Automated count Ordered By: Deepa Hendrickson on 17-90-5208FXT Auto (Urine sed) [#/Area]5-9 [HPF]High 0-4FGalion Community HospitalLeukocytes [#/volume] corrected for nucleated erythrocytes in Blood by Automated counOrdered By: Deepa Hendrickson on 86-87-5871YKT corrected for nucl RBC Auto (Bld) [#/Vol]7.3 10*3/uL3.8-11.6 [facility] [Entitic mass] by Automated countOrdered By: Deepa Hendrickson on 59-09-3158AHF (RBC) [Entitic mass]30.2 moSvmdgp00.7-34.3 [facility] HospitalComment on above:Performed By: #### MG, PROCRERAT, URIC, [id number], CBCNO, ADDONUAPLUS, RENAL, PTH #### [facility] [address] [place] [address] [facility] Auto (RBC) [Mass/Vol]Ordered By: Deepa Hendrickson on 10-06-1385DWGO (RBC) [Mass/Vol]34.4 g/dL32.0-35.0[facility] HospitalMCV [Entitic volume] by Automated countOrdered By: Deepa Hendrickson on 34-18-7648RDL (RBC) [Entitic vol]87.8 lFLyeivm12-755HnowwbavbTrihealth Mccullough-Hyde Memorial HospitalComment on above:Performed By: #### MG, PROCRERAT, URIC, [id number], CBCNO, ADDONUAPLUS, RENAL, PTH #### [facility] [address] [place] [address] USAMagnesium [Mass/volume] in Serum or PlasmaOrdered By: Deepa Hendrickson on 37-33-8859Wjgssdfkc [Mass/Vol]2.0 mg/dLNormal1.9-2.7FGalion Community HospitalComment on above:Performed By: #### CREAT, B12, TSH3 #### [facility] [address] [place] [address] USAMucus [Presence] in Urine by AutomatedOrdered By: Deepa Hendrickson on 53-73-0580Oecrf Auto Ql (U)Rare [LPF][facility] Nitrite Test strip Ql (U)Ordered By: Deepa Hendrickson on 38-72-1412Wvqhutu Ql (U) NegativeNegativeTrihealth Mccullough-Hyde Memorial HospitalNo Panel InformationOrdered By: Deepa Hendrickson on 27-06-3472Aditfypjw GFR (CKD-EPI)37.098 mL/MinTrihealth Mccullough-Hyde Memorial HospitalPharmacy Creatinine Clearance (ChemN/[facility] DaytonParathyrin.intact [Mass/volume] in Serum or PlasmaOrdered By: Deepa Hendrickson on 45-53-2118Gcgbnpqres.intact [Mass/Vol]26.0 pg/fN06-07JfaisqwddTrihealth Mccullough-Hyde Memorial HospitalParathyroid Hormone Intacton 45-86-0606Awqhkyxvwwu Hormone Intact 26.0 pg/rHTvekao03-95Ghl [facility] Physician GroupComment on above:Result Comment: PERFORMED BY: [facility] [address] [place] [address] PATHOLOGIST ENAMEL BURNER ROSMERY GÓMEZ M.D.Performed By: #### MG, PROCRERAT, URIC, [id number], CBCNO, ADDONUAPLUS, RENAL, PTH #### [facility] [address] [place] [address] USAPhosphate [Mass/volume] in Serum or PlasmaOrdered By: Deepa Hendrickson on 80-52-2219Mjxcbdgqy [Mass/Vol]3.8 mg/dLNormal2.5-4.5FGalion Community HospitalComment on above:Performed By: #### MG, PROCRERAT, URIC, [id number], CBCNO, ADDONUAPLUS, RENAL, PTH #### [place] [address] USAPlatelet mean volume [Entitic volume] in Blood by Automated countOrdered By: Deepa Hendrickson on 73-44-3405Ijdhnabn mean volume (Bld) [Entitic vol]9.2 fLNormal6.3-10.7FGalion Community HospitalComment on above:Result Comment: PERFORMED BY: [place] [address] PATHOLOGIST ENAMEL BURNER ROSMERY GÓMEZ M.D.Performed By: #### MG, PROCRERAT, URIC, [id number], CBCNO, ADDONUAPLUS, RENAL, PTH #### [place] [address] USAPlatelets [#/volume] in Blood by Automated countOrdered By: Deepa Hendrickson on 64-06-9537Rzvbudbdw (Bld) [#/Vol]200 10*3/nVEzexvj746-808 [facility] HospitalComment on above:Performed By: #### MG, PROCRERAT, URIC, [id number], CBCNO, ADDONUAPLUS, RENAL, PTH #### [place] [address] USAPotassium [Moles/volume] in Serum or PlasmaOrdered By: Deepa Hendrickson on 32-77-0383Gntxpihzp [Moles/Vol]4.0 mmol/LNormal3.5-5.1FGalion Community HospitalComment on above:Performed By: #### MG, PROCRERAT, URIC, [id number], CBCNO, ADDONUAPLUS, RENAL, PTH #### [place] [address] USAProtein Creat Ratio Ur Randomon 90-43-0934Kebrcakrgp, Urine (Random)181.00 mg/dLNoDosher Memorial Hospital Physician [facility] WesleyComment on above: Result Comment: No reference range establishedPerformed By: #### MG, PROCRERAT, URIC, [id number], CBCNO, ADDONUAPLUS, RENAL, PTH #### [facility] [address] [place] [address] USAUrine Protein/Creatinine Ratio72 mg/g{Cre}Normal0-200The [facility] Physician [facility] WesleyComment on above:Result Comment: PERFORMED BY: [place] [address] PATHOLOGIST ENAMEL BURNER ROSMERY GÓMEZ M.D.Performed By: #### MG, PROCRERAT, URIC, [id number], CBCNO, ADDONUAPLUS, RENAL, PTH #### [place] [address] USAProtein Test strip (U) [Mass/Vol]Ordered By: Deepa Hendrickson on 59-43-6478Auwujvy (U) [Mass/Vol]NegativeNegativeTrihealth Mccullough-Hyde Memorial HospitalProtein [Mass/volume] in UrineOrdered By: Deepa Hendrickson on 58-23-0228Zslvqzg (U) [Mass/Vol]13 mg/dLHigh0-9[facility] HospitalComment on above: Performed By: #### MG, PROCRERAT, URIC, [id number], CBCNO, ADDONUAPLUS, RENAL, PTH #### [facility] [address] [place] [address] USARenal Function Panelon 52-56-3616Mjgxqjl [Mass/Vol]4.2 g/dLNormal3.5-5.7The [facility] Physician [facility] WesleyComment on above:Performed By: #### MG, PROCRERAT, URIC, [id number], CBCNO, ADDONUAPLUS, RENAL, PTH #### [place] [address] USAEstimated GFR37.098 mL/MinNoDosher Memorial Hospital Physician [facility] WesleyComment on above:Performed By: #### MG, PROCRERAT, URIC, [id number], CBCNO, ADDONUAPLUS, RENAL, PTH #### [facility] [address] [place] [address] USASerum or plasma anion gap determinationOrdered By: Deepa Conroydir on 89-27-8635Iwqng gap [Moles/Vol]9.8 mmol/LNormal6.0-15.0[facility] HospitalComment on above:Performed By: #### MG, PROCRERAT, URIC, [id number], CBCNO, ADDONUAPLUS, RENAL, PTH #### [place] [id number] USASodium [Moles/volume] in Serum or PlasmaOrdered By: Deepa Emeka on 38-79-7328Oaiqfp [Moles/Vol]139 mmol/BVfyqqx734-031ZrpixailqTrihealth Mccullough-Hyde Memorial HospitalComment on above:Performed By: #### MG, PROCRERAT, URIC, [id number], CBCNO, ADDONUAPLUS, RENAL, PTH #### [place] [id number] USASpecific gravity Test strip (U) [Rel density]Ordered By: Deepa Hendrickson on 48-10-6433Lwohnmkp gravity (U) [Rel density]1.0201.001-1.030 [facility] Memorial HospitalUrate [Mass/volume] in Serum or PlasmaOrdered By: Deepa Conroydir on 76-23-4269Oklen [Mass/Vol]7.1 mg/dLHigh2.3-6.6FGalion Community HospitalComment on above:Performed By: #### CREAT, B12, TSH3 #### [place] [id number] USAUrea nitrogen [Mass/volume] in Serum or PlasmaOrdered By: Deepa Emeka on 49-92-5233Rtyq nitrogen [Mass/Vol]30 mg/dLHigh7-25[facility] HospitalComment on above:Performed By: #### MG, PROCRERAT, URIC, [id number], CBCNO, ADDONUAPLUS, RENAL, PTH #### [place] [id number] USAUrine protein/creatinine ratioOrdered By: Deepa Hendrickson on 71-86-8773Sgmxkpp/Creatinine (U) [Ratio]72 mg/g{Cre}0-200[facility] Memorial HospitalUrobilinogen Test strip (U) [Mass/Vol]Ordered By: Deepa Hendrickson on 90-25-5754Vrshckuzckft (U) [Mass/Vol]Normal mg/dLNormalTrihealth Mccullough-Hyde Memorial HospitalVitamin D 25 Hydroxy Totalon 39-66-4998Nlejaiq D 25 Hydroxy Total 56.6 ng/kIKdlzjk41-823Caw [facility] Physician GroupComment on above:Result Comment: VITAMIN D STATUS 25(OH)VITAMIN D RANGE (ng/mL) Deficient <20 Insufficient 20 to <30 Sufficient 30 to 100 Reference: Jose Kennedy, Juan VILLARREAL, et al. Evaluation,treatment, and prevention of vitamin D deficiency; an Endocrine Society clinical practice guideline. JCEM. 2010; 96(7):1911-. PERFORMED BY: [facility] [address] [place] [address] PATHOLOGIST ENAMEL BURNER ROSMERY GÓMEZ M.D.Performed By: #### CREAT, B12, TSH3 #### [facility] [address] [place] [address] USAVitamin D+Metabolites [Mass/volume] in Serum or Plasma Ordered By: Deepa Hendrickson on 54-06-9233Igfhfia D+Metabolites [Mass/Vol]56.6 ng/mL 30-100[facility] Memorial HospitalComment on above:VITAMIN D STATUS 25(OH)VITAMIN D RANGE (ng/mL) Deficient <20 Insufficient 20 to <67Dqrkohxkwn10 to 100Reference: Jose Kennedy, Juan VILLARREAL, et al. Evaluation,treatment, and prevention of vitamin D deficiency; an Endocrine Society clinical practice guideline. JCEM. 2010; 96(7):1911-30.pH of Urine by Test stripOrdered By: Deepa Hendrickson on 43-90-1594iP (U)5.5 [pH]Normal5.0-9.0 [facility] Medical CenterComment on above:Order Comment: Name Collection Type:: Clean-Voided MidstreamPerformed By: #### MG, PROCRERAT, URIC, [id number], CBCNO, ADDONUAPLUS, RENAL, PTH #### [facility] [address] [place], [place] [address] USACreatinineon 99-77-9525Fzjoeriili [Mass/Vol]1.56 mg/dLHigh 0.60-1.20The [facility] Physician GroupComment on above:Performed By: #### CREAT, B12, TSH3 #### [place] [address] USAEstimated GFR32.580 mL/MinNormalThe [facility] Physician GroupComment on above:Performed By: #### CREAT, B12, TSH3 #### [place] [address] USACreatinine [Mass/volume] in Serum or PlasmaOrdered By: Rosie Jones on 91-30-2581Fuxkafyeze [Mass/Vol]Creatinine [Mass/volume] in Serum or PlasmaHigh0.60-1.20[facility] HospitalNo Panel InformationOrdered By: Rosie Jones on 37-51-6084Marvvcdag GFR (CKD-EPI) 32.580 mL/MinTrihealth Mccullough-Hyde Memorial HospitalPharmacy Creatinine Clearance (ChemN/[facility] Hospital DaytonThyroid Stimulating Hormoneon 69-14-8125WWY Qn3.47 m[IU]/LNormal0.45-5.33The [facility] Physician GroupComment on above:Result Comment: PERFORMED BY: [place] [address] PATHOLOGIST ENAMEL BURNER ROSMERY GÓMEZ M.D.Performed By: #### CREAT, B12, TSH3 #### [facility] [address] [place] [address] USAThyrotropin [Units/volume] in Serum or PlasmaOrdered By: Rosie Jones on 05-35-2278BKX QnThyrotropin [Units/volume] in Serum or Plasma0.45-5.33[facility] Memorial HospitalVitamin B12on 08-17-2024 Cobalamin (Vitamin B12) [Mass/Vol]387 pg/qSYsyasp386-966Tmv [facility] Physician GroupComment on above:Performed By: #### TRACY, B12, TSH3 #### [address]Vitamin B12 ser/plasOrdered By: Rosie Jones on 48-06-7095Vxyedlvqh (Vitamin B12) [Mass/Vol]Vitamin B12 ser/milr578-869AqhpcqyhdTrihealth Mccullough-Hyde Memorial HospitalAlbumin [Mass/volume] in Serum or Plasma by Bromocresol green (BCG) dye binding methoOrdered By: Deepa Perezr on 87-07-8019Fnyfwjs BCG dye [Mass/Vol]4.1 g/dL3.5-5.7FGalion Community HospitalCalcium [Mass/volume] in Serum or PlasmaOrdered By: Deepa Emeka on 28-73-3884Riazmsw [Mass/Vol]9.1 mg/dL8.6-10.3FGalion Community HospitalCarbon dioxide, total [Moles/volume] in Serum or PlasmaOrdered By: Deepa Emeka on 43-63-0199GX0 [Moles/Vol]30.1 mmol/L21.0-31.0[facility] Memorial HospitalChloride [Moles/volume] in Serum or PlasmaOrdered By: Deepa Meeka on 48-96-0286Vvnrrglz [Moles/Vol]105 mmol/S53-014DyypanpabTrihealth Mccullough-Hyde Memorial HospitalCreatinine [Mass/volume] in Serum or PlasmaOrdered By: Deepa Emeka on 42-99-9637Rzknnvkhin [Mass/Vol]1.50 mg/dLHigh0.60-1.20[facility] Memorial HospitalCreatinine [Mass/volume] in UrineOrdered By: Deepa Emeka on 00-39-3270Ptucsepsda (U) [Mass/Vol]57.00 mg/dLTrihealth Mccullough-Hyde Memorial HospitalComment on above:No reference range establishedErythrocyte distribution width Auto (RBC) [Ratio] Ordered By: Deepa Emeka on 76-61-9471Pkmuybxuwla distribution width (RBC) [Ratio]13.6 %11.9-15.3FGalion Community HospitalGlucose [Mass/volume] in Serum or PlasmaOrdered By: Deepa Hendrickson on 73-55-0043Rcozprh [Mass/Vol]94 mg/dL 70-100[facility] Memorial HospitalComment on above:ADA recommended reference rangeRandom Glucose Reference Range is dependent on time and content of last meal. Glucose of more than 200 mg/dL in a nonstressed, ambulatory subject supports the diagnosisof Diabetes Mellitus.Hematocrit Auto (Bld) [Volume fraction]Ordered By: Deepa Hendrickson on 22-32-7944Vzjoupwqgi (Bld) [Volume fraction]37.8 %34.0-46.4FGalion Community HospitalHemoglobin [Mass/volume] in BloodOrdered By: Deepa Hendrickson on 83-22-5585Rmnadgdpsx (Bld) [Mass/Vol]12.9 g/dL11.8-15.4FGalion Community HospitalLeukocytes [#/volume] corrected for nucleated erythrocytes in Blood by Automated coun Ordered By: Deepa Hendrickson on 83-34-9139GEW corrected for nucl RBC Auto (Bld) [#/Vol]6.1 10*3/uL3.8-11.6FHolzer Medical Center – JacksonH Auto (RBC) [Entitic mass]Ordered By: Deepa Hendrickson on 28-78-7128SXJ (RBC) [Entitic mass]30.3 pg24.7-34.3FHolzer Medical Center – JacksonHC Auto (RBC) [Mass/Vol]Ordered By: Deepa Hendrickson on 99-61-2988JEXC (RBC) [Mass/Vol]34.1 g/dL32.0-35.0[facility] Memorial HospitalMCV Auto (RBC) [Entitic vol]Ordered By: Deepa Hendrickson on 85-25-4146NKM (RBC) [Entitic vol]88.7 cZ41-172IjjckrlaiTrihealth Mccullough-Hyde Memorial Hospital Magnesium [Mass/volume] in Serum or PlasmaOrdered By: Deepa Hendrickson on 03-28-2024 Magnesium [Mass/Vol]2.3 mg/dL1.9-2.7FGalion Community HospitalNo Panel InformationOrdered By: Deepa Hendrickson on 10-89-8293Qmxcrwtxk GFR (CKD-EPI)34.363 mL/MinTrihealth Mccullough-Hyde Memorial HospitalPharmacy Creatinine Clearance (ChemN/A [facility] HospitalParathyrin.intact [Mass/volume] in Serum or PlasmaOrdered By: Deepa Hendrickson on 50-94-4088Ezsjethjty.intact [Mass/Vol]44.1 pg/nD06-02NsvifswwpTrihealth Mccullough-Hyde Memorial HospitalPhosphate [Mass/volume] in Serum or PlasmaOrdered By: Deepa Hendrickson on 64-71-5742Ojvgsekzx [Mass/Vol]3.8 mg/dL2.5-4.5 [facility] Memorial HospitalPlatelet mean volume Auto (Bld) [Entitic vol] Ordered By: Deepa Hendrickson on 33-74-7622Evivuqyr mean volume (Bld) [Entitic vol]8.8 fL6.3-10.7FGalion Community HospitalPlatelets Auto (Bld) [#/Vol]Ordered By: Deepa Hendrickson on 39-60-8302Vhgopupaq (Bld) [#/Vol]206 10*3/nO807-950MwpjpczuqTrihealth Mccullough-Hyde Memorial HospitalPotassium [Moles/volume] in Serum or PlasmaOrdered By: Deepa Hendrickson on 42-65-8317Pqzhqqyqy [Moles/Vol]4.2 mmol/L3.5-5.1FGalion Community HospitalProtein [Mass/volume] in UrineOrdered By: Deepa Hendrickson on 35-52-4221Rgiulbi (U) [Mass/Vol]12 mg/dLHigh0-9[facility] RBC Auto (Bld) [#/Vol]Ordered By: Deepa Perezr on 84-87-5588YQB (Bld) [#/Vol]4.26 10*6/uL3.60-5.00Bluffton Hospitalerum or plasma anion gap determinationOrdered By: Deepa Hendrickson on 23-98-9239Gayza gap [Moles/Vol]11.1 mmol/L6.0-15.0Bluffton Hospitalodium [Moles/volume] in Serum or PlasmaOrdered By: Deepa Hendrickson on 00-37-5756Npkbbn [Moles/Vol]142 mmol/D667-106 [facility] Memorial HospitalUrate [Mass/volume] in Serum or PlasmaOrdered By: Deepa Hendrickson on 35-31-4438Jnvvq [Mass/Vol]6.6 mg/dL2.3-6.6FGalion Community HospitalUrea nitrogen [Mass/volume] in Serum or PlasmaOrdered By: Deepa Emeka on 94-94-3991Trfc nitrogen [Mass/Vol]31 mg/dLHigh7-25[facility] Memorial HospitalUrine protein/creatinine ratioOrdered By: Deepa Emeka on 10-42-3014Ozcfdsh/Creatinine (U) [Ratio]211 mg/g{Cre}High0-200[facility] Memorial HospitalVitamin D+Metabolites [Mass/volume] in Serum or PlasmaOrdered By: Deepa Emeka on 83-77-2001Plwukwy D+Metabolites [Mass/Vol]66.0 ng/sI83-157 [facility] HospitalComment on above:VITAMIN D STATUS 25(OH)VITAMIN D RANGE (ng/mL) Deficient <20 Insufficient 20 to <90Ajlapjzeuy52 to 100Reference: Austyn MF,Jose NC, Juan VILLARREAL, et al. Evaluation,treatment, and prevention of vitamin D deficiency; an Endocrine Society clinical practice guideline. JCEM. 2010; 96(7):1911-30.Basophils Auto (Bld) [#/Vol]Ordered By: David Pike on 69-42-7143Nfpngvvjn (Bld) [#/Vol] 0.1 10*3/uL0.0-0.2FGalion Community HospitalBasophils/100 WBC Auto (Bld) Ordered By: David Pike on 44-38-2478Akpooprwj/100 WBC (Bld)0.9 %.[facility] HospitalCalcium [Mass/volume] in Serum or PlasmaOrdered By: David Pike on 69-78-5676Zgkwbwm [Mass/Vol]9.1 mg/dL8.6-10.3FGalion Community HospitalCarbon dioxide, total [Moles/volume] in Serum or PlasmaOrdered By: David Pike on 34-18-8088XY5 [Moles/Vol]29.6 mmol/L21.0-31.0[facility] Memorial HospitalChloride [Moles/volume] in Serum or PlasmaOrdered By: David Pike on 22-99-3852Fwojmesg [Moles/Vol]106 mmol/L12-753AqrcgayilTrihealth Mccullough-Hyde Memorial HospitalCreatinine [Mass/volume] in Serum or PlasmaOrdered By: David Pike on 05-65-0913Lzpxtxhgxr [Mass/Vol]1.45 mg/dLHigh0.60-1.20[facility] HospitalEosinophils Auto (Bld) [#/Vol]Ordered By: David Pike on 94-65-7225Qswekzhcaog (Bld) [#/Vol]0.3 10*3/uL0.0-0.45[facility] HospitalEosinophils/100 WBC Auto (Bld)Ordered By: David Pike on 36-92-8281Brfkruxnzve/100 WBC (Bld)4.2 %.[facility] Erythrocyte distribution width Auto (RBC) [Ratio]Ordered By: David Pike on 63-64-0769Sychqrpkley distribution width (RBC) [Ratio]13.7 %11.9-15.3FGalion Community HospitalGlucose [Mass/volume] in Serum or PlasmaOrdered By: David Pike on 38-45-7929Xfftwbr [Mass/Vol]94 mg/nB20-368AoupkwsjtTrihealth Mccullough-Hyde Memorial HospitalComment on above:ADA recommended reference rangeRandom Glucose Reference Range is dependent on time and content of last meal. Glucose of more than 200 mg/dL in a nonstressed, ambulatory subject supports the diagnosisof Diabetes Mellitus.Hematocrit Auto (Bld) [Volume fraction]Ordered By: David Pike on 96-00-5327Eminmzsdvy (Bld) [Volume fraction]39.2 %34.0-46.4FGalion Community HospitalHemoglobin [Mass/volume] in BloodOrdered By: David Pike on 94-92-1822Margygcwyn (Bld) [Mass/Vol]13.4 g/dL11.8-15.4FGalion Community HospitalLeukocytes [#/volume] corrected for nucleated erythrocytes in Blood by Automated counOrdered By: David Pike on 60-99-9271BEX corrected for nucl RBC Auto (Bld) [#/Vol]6.3 10*3/uL3.8-11.6FGalion Community Hospital Lymphocytes Auto (Bld) [#/Vol]Ordered By: David Pike on 60-70-7224Xligoslaxhy (Bld) [#/Vol]1.7 10*3/uL1.00-4.8[facility] HospitalLymphocytes/100 WBC Auto (Bld)Ordered By: David Pike on 40-64-4838Ecfsmxhghtq/100 WBC (Bld) 26.8 %.[facility] HospitalH Auto (RBC) [Entitic mass]Ordered By: David Pike on 58-58-3268VQK (RBC) [Entitic mass]30.4 pg24.7-34.3FGalion Community HospitalMCHC Auto (RBC) [Mass/Vol]Ordered By: David Pike on 52-37-0206EDVE (RBC) [Mass/Vol]34.3 g/dL32.0-35.0[facility] HospitalMCV Auto (RBC) [Entitic vol]Ordered By: David Pike on 43-60-3111MXZ (RBC) [Entitic vol]88.6 vC89-918QkjirwhkeTrihealth Mccullough-Hyde Memorial HospitalMonocytes Auto (Bld) [#/Vol]Ordered By: David Pike on 96-32-0218Tbtotjcpp (Bld) [#/Vol]0.4 10*3/uL0.0-0.8[facility] HospitalMonocytes/100 WBC Auto (Bld) Ordered By: David Pike on 27-84-2279Repsibogo/100 WBC (Bld)7.1 %.[facility] Memorial HospitalNeutrophils Auto (Bld) [#/Vol]Ordered By: David Pike on 12-54-0277Ybxhvwlgqvk (Bld) [#/Vol]3.8 10*3/uL1.8-7.7FGalion Community HospitalNeutrophils/100 WBC Auto (Bld)Ordered By: David Pike on 03-18-2024 Neutrophils/100 WBC (Bld)61.0 %.[facility] HospitalNo Panel InformationOrdered By: David Pike on 20-46-4501Bgxiudnph GFR (CKD-EPI)35.790 mL/MinTrihealth Mccullough-Hyde Memorial HospitalPharmacy Creatinine Clearance (ChemN/A [facility] HospitalNucleated erythrocytes [Presence] in Blood by Automated countOrdered By: David Pike on 71-89-0321Mnqnyziia RBC Auto Ql (Bld) 0.1 /100{WBC}0-0.5FGalion Community HospitalPlatelet mean volume Auto (Bld) [Entitic vol]Ordered By: David Pike on 12-39-1008Komeilps mean volume (Bld) [Entitic vol]8.9 fL6.3-10.7FGalion Community HospitalPlatelets Auto (Bld) [#/Vol]Ordered By: David Pike on 79-94-1906Vmljhmzfo (Bld) [#/Vol]189 10*3/dI445-673DniegpikxTrihealth Mccullough-Hyde Memorial HospitalPotassium [Moles/volume] in Serum or PlasmaOrdered By: David Pike on 81-41-6422Lwskgxgar [Moles/Vol]4.5 mmol/L 3.5-5.1FGalion Community HospitalRBC Auto (Bld) [#/Vol]Ordered By: David Pike on 01-26-2999TYT (Bld) [#/Vol]4.43 10*6/uL3.60-5.00[facility]uff[facility] Hospitalerum or plasma anion gap determinationOrdered By: David Pike on 26-24-7892Dhsic gap [Moles/Vol]8.9 mmol/L6.0-15.0[facility] Hospitalodium [Moles/volume] in Serum or PlasmaOrdered By: David Pike on 50-65-5356Ooaubg [Moles/Vol]140 mmol/F790-058HrwzsxdbdTrihealth Mccullough-Hyde [facility] Hospital Thyrotropin [Units/volume] in Serum or PlasmaOrdered By: David Pike on 63-73-2803HKD Qn7.59 m[IU]/LHigh0.45-5.33[facility] Thyroxine (T4) free [Mass/volume] in Serum or PlasmaOrdered By: David Pike on 30-09-4718Ozfe T4 [Mass/Vol]1.13 ng/dLHigh0.61-1.12[facility] HospitalUrea nitrogen [Mass/volume] in Serum or PlasmaOrdered By: David Pike on 18-05-9037Xqhx nitrogen [Mass/Vol]26 mg/dLHigh7-25[facility] HospitalWBC Auto (Bld) [#/Vol]Ordered By: David Pike on 21-99-1178QIX (Bld) [#/Vol]6.3 10*3/uL3.8-11.6FGalion Community HospitalAlbumin [Mass/volume] in Serum or Plasma by Bromocresol green (BCG) dye binding methoOrdered By: Deepa Hendrickson on 79-53-1046Puyuctv BCG dye [Mass/Vol]4.2 g/dL3.5-5.7FGalion Community HospitalAutomated erythrocytes count in urine sediment (number/area)Ordered By: Deepa Hendrickson on 49-35-6429PWD Auto (Urine sed) [#/Area] 0-1 [HPF]0-4FGalion Community HospitalAutomated leukocytes count in urine sediment (number/area)Ordered By: Deepa Hendrickson on 76-61-2772QGJ Auto (Urine sed) [#/Area]5-9 [HPF]0-4FGalion Community HospitalAutomated urine sediment calcium oxalate crystal count by microscopy (number/high powOrdered By: Deepa Hendrickson on 61-53-7927Pbyzhwq oxalate crystals LM.HPF (Urine sed) [#/Area]4+ [HPF] [facility] HospitalBilirubin Test strip Ql (U)Ordered By: Deepa Hendrickson on 46-66-7960Bfsvbgldu Ql (U)NegativeNegativeTrihealth Mccullough-Hyde Memorial HospitalCalcium [Mass/volume] in Serum or PlasmaOrdered By: Deepa Hendrickson on 68-33-4508Srztegz [Mass/Vol]9.7 mg/dL8.6-10.3FGalion Community Hospital Carbon dioxide, total [Moles/volume] in Serum or PlasmaOrdered By: Deepa Hendrickson on 64-81-2141JM0 [Moles/Vol]30.5 mmol/L21.0-31.0[facility] HospitalChloride [Moles/volume] in Serum or PlasmaOrdered By: Deepa Hendrickson on 66-64-9907Qcwpyrpg [Moles/Vol]105 mmol/Z24-808SwyqogbbfTrihealth Mccullough-Hyde Memorial Hospital Color Auto (U)Ordered By: Deepa Hendrickson on 97-31-9952Cwjta (U)YellowYellow [facility] HospitalCreatinine [Mass/volume] in Serum or Plasma Ordered By: Deepa Hendrickson on 68-99-0596Rrbikqakpt [Mass/Vol]1.66 mg/dL0.60-1.20 [facility] HospitalCreatinine [Mass/volume] in UrineOrdered By: Deepa Hendrickson on 05-92-4942Svcettfoxw (U) [Mass/Vol]mg/dL11.0-20.0[facility] HospitalErythrocyte distribution width Auto (RBC) [Ratio]Ordered By: Deepa Hendrickson on 15-24-9061Yacvonqqefp distribution width (RBC) [Ratio]13.5 % 11.9-15.3FGalion Community HospitalGlucose [Mass/volume] in Serum or PlasmaOrdered By: Deepa Hendrickson on 53-78-1764Kfihhao [Mass/Vol]85 mg/cQ38-442 [facility] HospitalComment on above:ADA recommended reference rangeRandom Glucose Reference Range is dependent on time and content of last meal. Glucose of more than 200 mg/dL in a nonstressed, ambulatory subject supports the diagnosisof Diabetes Mellitus.Hematocrit Auto (Bld) [Volume fraction]Ordered By: Deepa Hendrickson on 49-09-2733Xcfwypgrgc (Bld) [Volume fraction] 37.8 %34.0-46.4FGalion Community HospitalHemoglobin [Mass/volume] in BloodOrdered By: Deepa Hendrickson on 83-83-8027Ycpdoiccrd (Bld) [Mass/Vol]12.6 g/dL 11.8-15.4FGalion Community HospitalKetones Auto test strip (U) [Mass/Vol] Ordered By: Deepa Hendrickson on 48-78-6917Rdxyiyv (U) [Mass/Vol]TraceNegative [facility] HospitalLaboratory - UrinalysisOrdered By: Deepa Hendrickson on 45-59-0102Aryjxus casts LM Ql (Urine sed)9-19 [LPF]0-8[facility] HospitalLeukocytes [#/volume] corrected for nucleated erythrocytes in Blood by Automated counOrdered By: Deepa Hendrickson on 09-80-9214KJF corrected for nucl RBC Auto (Bld) [#/Vol]7.1 10*3/uL3.8-11.6FGalion Community Hospital MCH Auto (RBC) [Entitic mass]Ordered By: Deepa Hendrickson on 98-34-7944FOE (RBC) [Entitic mass]29.6 pg24.7-34.3FGalion Community HospitalMCHC Auto (RBC) [Mass/Vol]Ordered By: Deepa Hendrickson on 24-18-7275HLLU (RBC) [Mass/Vol]33.3 g/dL 32.0-35.0[facility] HospitalMCV Auto (RBC) [Entitic vol]Ordered By: Deepa Hendrickson on 60-40-1231SML (RBC) [Entitic vol]88.9 cT18-918RnisbycbhTrihealth Mccullough-Hyde Memorial HospitalMagnesium [Mass/volume] in Serum or PlasmaOrdered By: Deepa Hendrickson on 99-31-3013Pvthykoaa [Mass/Vol]2.1 mg/dL1.9-2.7FGalion Community HospitalNitrite Test strip Ql (U)Ordered By: Deepa Hendrickson on 09-07-2023 Nitrite Ql (U)NegativeNegativeTrihealth Mccullough-Hyde Memorial HospitalNo Panel InformationOrdered By: Deepa Hendrickson on 93-79-7334Xbfmpwkdl GFR (CKD-EPI)30.428 mL/MinTrihealth Mccullough-Hyde Memorial HospitalPharmacy Creatinine Clearance (ChemN/A [facility] HospitalParathyrin.intact [Mass/volume] in Serum or PlasmaOrdered By: Deepa Hendrickson on 46-71-7734Nutltpsufw.intact [Mass/Vol]17.7 pg/rK29-66AbylpznfaTrihealth Mccullough-Hyde Memorial HospitalPhosphate [Mass/volume] in Serum or PlasmaOrdered By: Deepa Hendrickson on 30-02-2738Xeiahnofa [Mass/Vol]3.8 mg/dL2.5-4.5 [facility] HospitalPlatelet mean volume Auto (Bld) [Entitic vol] Ordered By: Deepa Emeka on 84-08-0958Kwlromud mean volume (Bld) [Entitic vol]9.2 fL6.3-10.7FGalion Community HospitalPlatelets Auto (Bld) [#/Vol]Ordered By: Deepa Emeka on 79-46-9461Pryrzddbn (Bld) [#/Vol]216 10*3/lY437-477VhvfhjliuTrihealth Mccullough-Hyde Memorial HospitalPotassium [Moles/volume] in Serum or PlasmaOrdered By: Deepa Emeka on 14-17-4154Ftvjzaujd [Moles/Vol]4.0 mmol/L3.5-5.1FGalion Community HospitalProtein Auto test strip (U) [Mass/Vol]Ordered By: Deepa Emeka on 94-06-4418Mpvgphp (U) [Mass/Vol]30 mg/dLNegativeTrihealth Mccullough-Hyde Memorial HospitalProtein [Mass/volume] in UrineOrdered By: Deepa Emeka on 01-40-4332Szysgad (U) [Mass/Vol]41 mg/dL0-9[facility] HospitalRBC Auto (Bld) [#/Vol]Ordered By: Deepa Emeka on 55-49-5262ZFD (Bld) [#/Vol]4.25 10*6/uL3.60-5.00[facility]uffton Hospitalerum or plasma anion gap determinationOrdered By: Deepa Emeka on 04-69-6354Ywcqx gap [Moles/Vol]10.5 mmol/L6.0-15.0[facility] Hospitalodium [Moles/volume] in Serum or PlasmaOrdered By: Deepa Emeka on 50-29-7321Keehhd [Moles/Vol]142 mmol/B422-523 [facility] Hospitalpecific gravity Auto test strip (U) [Rel density]Ordered By: Deepa Emeka on 72-35-5936Qiqvbhtr gravity (U) [Rel density] 1.0271.001-1.030[facility] Hospitalquamous epithelial cells detection in urine sediment by light microscopyOrdered By: Deepa Conroydir on 07-71-6754Lhmplgbvtl cells.squamous LM Ql (Urine sed)10-19 [HPF]0-2FGalion Community HospitalUrate [Mass/volume] in Serum or PlasmaOrdered By: Deepa Hendrickson on 89-74-2999Bvpyf [Mass/Vol]6.8 mg/dL2.3-6.6FGalion Community HospitalUrea nitrogen [Mass/volume] in Serum or PlasmaOrdered By: Deepa Hendrickson on 36-19-8619Oxlh nitrogen [Mass/Vol]30 mg/dL7-25[facility] Urine bacteria detection by automated methodOrdered By: Deepa Hendrickson on 28-69-6709Qizygegl Auto Ql (U)RareNone SeenTrihealth Mccullough-Hyde Memorial Hospital Urine clarity by refractometry automatedOrdered By: Deepa Hendrickson on 09-07-2023 Clarity Refractometry automated (U)CloudyCleWilson Health Urine glucose measurement by automated test strip (mass/volume)Ordered By: Deepa Hendrickson on 83-26-3183Drosvdl Auto test strip (U) [Mass/Vol]Normal mg/dLWyandot Memorial HospitalUrine hemoglobin detection by automated test stripOrdered By: Deepa Hendrickson on 94-53-5709Yrvbxtdsdv Auto test strip Ql (U) NegativeNegFulton County Health CenterUrine leukocyte esterase detection by automated test stripOrdered By: Deepa Hendrickson on 24-56-9466Uhswpfygl esterase Auto test strip Ql (U)NegativeNegFulton County Health Center Urine protein/creatinine ratioOrdered By: Deepa Hendrickson on 09-07-2023 Protein/Creatinine (U) [Ratio][facility] CenterComment on above:Test not performedUrine sediment crystal identification by light microscopyOrdered By: Deepa Hendrickson on 73-56-9746Nevvzbzp LM Nom (Urine sed)None seen [HPF][facility] HospitalUrobilinogen Auto test strip (U) [Mass/Vol]Ordered By: Deepa Hendrickson on 68-56-6723Lulquntzwfqy (U) [Mass/Vol]Normal mg/dLMercy Memorial HospitalVitamin D+Metabolites [Mass/volume] in Serum or PlasmaOrdered By: Deepa Hendrickson on 74-07-7999Fqnweww D+Metabolites [Mass/Vol]72.3 ng/lK20-295XfntkcrzcTrihealth Mccullough-Hyde Memorial HospitalComment on above: VITAMIN D STATUS 25(OH)VITAMIN D RANGE (ng/mL) Deficient <20 Insufficient 20 to <31Ufyfpseecf89 to 100Reference: Austyn MF,Jose NC, Juan VILLARREAL, et al. Evaluation,treatment, and prevention of vitamin D deficiency; an Endocrine Society clinical practice guideline. JCEM. 2010; 96(7):1911-30.pH Auto test strip (U)Ordered By: Deepa Hendrickson on 75-94-7217aE (U)5.5 [pH]5.0-9.0[facility] HospitalUrinalysis - DIPSTICKon 89-39-8135Vohwxmcsgr (U)clear [employer] Other Bilirubin Ql (U)[employer] Other Color (U)yellowMidlothian [employer] Other Glucose Ql (U)[employer] Other Hemoglobin Ql (U)[facility] HospitalEco-Source Technologies [employer] Other Ketones Ql (U)[employer] Other Leukocyte esterase Test strip Ql (U)[facility] [employer] Other Nitrite Ql (U)[facility] [employer] Other pH (U)5.0 [pH][employer] Other Protein Ql (U)[employer] Other Specific gravity (U) [Rel density]1.010[facility] [employer] Other Urobilinogen (U) [Mass/Vol]0.2 mg/dLMidlothian [employer] Other Urinalysis - DIPSTICKMidlothian [employer] Other Albumin [Mass/volume] in Serum or Plasma by Bromocresol green (BCG) dye binding methoOrdered By: Deepa Hendrickson on 03-17-2023 Albumin BCG dye [Mass/Vol]4.0 g/dL3.5-5.7FGalion Community Hospital Automated erythrocytes count in urine sediment (number/area)Ordered By: Deepa Hendrickson on 21-53-6676EZW Auto (Urine sed) [#/Area]None seen [HPF]0-4FGalion Community HospitalAutomated leukocytes count in urine sediment (number/area)Ordered By: Deepa Hendrickson on 22-04-9933TWU Auto (Urine sed) [#/Area] 3-4 [HPF]0-4FGalion Community HospitalBilirubin Test strip Ql (U)Ordered By: Deepa Hendrickson on 92-62-8506Qatpxnoot Ql (U)NegativeNegativeTrihealth Mccullough-Hyde Memorial HospitalCalcium [Mass/volume] in Serum or PlasmaOrdered By: Deepa Hendrickson on 22-58-4513Kluvlzh [Mass/Vol]9.1 mg/dL8.6-10.3FGalion Community Hospital Carbon dioxide, total [Moles/volume] in Serum or PlasmaOrdered By: Deepa Hendrickson on 59-26-6995JQ9 [Moles/Vol]30.3 mmol/L21.0-31.0[facility] HospitalChloride [Moles/volume] in Serum or PlasmaOrdered By: Deepa Hendrickson on 55-25-1541Elffhpzs [Moles/Vol]101 mmol/Y47-208YbqldqianTrihealth Mccullough-Hyde Memorial Hospital Color Auto (U)Ordered By: Deepa Hendrickson on 15-81-8079Htvqt (U)YellowYellow [facility] HospitalCreatinine [Mass/volume] in Serum or Plasma Ordered By: Deepa Hendrickson on 20-10-7561Ctekvdxrys [Mass/Vol]1.45 mg/dL0.60-1.20 [facility] HospitalCreatinine [Mass/volume] in UrineOrdered By: Deepa Hendrickson on 37-97-4458Dzfexywxsa (U) [Mass/Vol]35.0 mg/dL11.0-20.0[facility] HospitalErythrocyte distribution width Auto (RBC) [Ratio]Ordered By: Deepa Hendrickson on 66-75-8750Crjjgdtkzir distribution width (RBC) [Ratio]13.9 % 11.9-15.3FGalion Community HospitalGlucose [Mass/volume] in Serum or PlasmaOrdered By: Deepa Hendrickson on 90-19-0156Zmarmua [Mass/Vol]90 mg/oG74-659 [facility] HospitalComment on above:ADA recommended reference rangeRandom Glucose Reference Range is dependent on time and content of last meal. Glucose of more than 200 mg/dL in a nonstressed, ambulatory subject supports the diagnosisof Diabetes Mellitus.Hematocrit Auto (Bld) [Volume fraction]Ordered By: Deepa Hendrickson on 84-72-8037Ontgwkfvcd (Bld) [Volume fraction] 37.9 %34.0-46.4FGalion Community HospitalHemoglobin [Mass/volume] in BloodOrdered By: Deepa Hendrickson on 88-24-0191Pmfttcczzz (Bld) [Mass/Vol]12.8 g/dL 11.8-15.4FGalion Community HospitalKetones Auto test strip (U) [Mass/Vol] Ordered By: Deepa Hendrickson on 90-71-6327Dfcqcjw (U) [Mass/Vol]NegativeNegative [facility] HospitalLaboratory - UrinalysisOrdered By: Deepa Hendrickson on 10-33-1509Xzcvhmv casts LM Ql (Urine sed)0-8 [LPF]0-8[facility] HospitalLeukocytes [#/volume] corrected for nucleated erythrocytes in Blood by Automated counOrdered By: Deepa Hendrickson on 97-72-5240ALJ corrected for nucl RBC Auto (Bld) [#/Vol]5.1 10*3/uL3.8-11.6FGalion Community Hospital MCH Auto (RBC) [Entitic mass]Ordered By: Deepa Hendrickson on 55-92-7734GEP (RBC) [Entitic mass]30.1 pg24.7-34.3FGalion Community HospitalMCHC Auto (RBC) [Mass/Vol]Ordered By: Deepa Hendrickson on 80-37-0890IYRF (RBC) [Mass/Vol]33.7 g/dL 32.0-35.0[facility] HospitalMCV Auto (RBC) [Entitic vol]Ordered By: Deepa Hendrickson on 23-70-3561QBX (RBC) [Entitic vol]89.4 iL38-416LaurssrquTrihealth Mccullough-Hyde Memorial HospitalMagnesium [Mass/volume] in Serum or PlasmaOrdered By: Deepa Hendrickson on 90-09-6043Dcjldkitc [Mass/Vol]2.2 mg/dL1.9-2.7FGalion Community HospitalNitrite Test strip Ql (U)Ordered By: Deepa Hendrickson on 03-17-2023 Nitrite Ql (U)NegativeNegativeTrihealth Mccullough-Hyde Memorial HospitalNo Panel InformationOrdered By: Deepa Hendrickson on 08-83-4090Terkaeljf GFR (CKD-EPI)36.014 mL/MinTrihealth Mccullough-Hyde Memorial HospitalPharmacy Creatinine Clearance (ChemN/A [facility] HospitalParathyrin.intact [Mass/volume] in Serum or PlasmaOrdered By: Deepa Hendrickson on 07-59-3667Xhtpirijcc.intact [Mass/Vol]45.6 pg/cI27-01JfwdrgcsmTrihealth Mccullough-Hyde Memorial HospitalPhosphate [Mass/volume] in Serum or PlasmaOrdered By: Deepa Hendrickson on 18-66-0046Yxxahadmx [Mass/Vol]3.2 mg/dL3.7-7.2 [facility] HospitalPlatelet mean volume Auto (Bld) [Entitic vol] Ordered By: Deepa Hendrickson on 62-20-5093Inxceyqg mean volume (Bld) [Entitic vol]9.0 fL6.3-10.7FGalion Community HospitalPlatelets Auto (Bld) [#/Vol]Ordered By: Deepa Hendrickson on 95-08-1278Qrssmrdfk (Bld) [#/Vol]187 10*3/cX032-534LduejbeajTrihealth Mccullough-Hyde Memorial HospitalPotassium [Moles/volume] in Serum or PlasmaOrdered By: Deepa Hendrickson on 92-08-2352Ypxsxztir [Moles/Vol]4.6 mmol/L3.5-5.1FGalion Community HospitalProtein Auto test strip (U) [Mass/Vol]Ordered By: Deepa Hendrickson on 79-09-0883Gtsxigm (U) [Mass/Vol]NegativeNegativeTrihealth Mccullough-Hyde Memorial HospitalProtein [Mass/volume] in UrineOrdered By: Deepa Conroydir on 43-64-0693Hnfbxdf (U) [Mass/Vol]6 mg/dL0-9[facility] HospitalRBC Auto (Bld) [#/Vol]Ordered By: Deepa Emeka on 30-20-7929TGE (Bld) [#/Vol]4.24 10*6/uL3.60-5.00[facility] Hospitalerum or plasma anion gap determinationOrdered By: Deepa Hendrickson on 99-18-9382Xhtzz gap [Moles/Vol]10.3 mmol/L6.0-15.0[facility] Hospitalodium [Moles/volume] in Serum or PlasmaOrdered By: Deepa Hendrickson on 16-92-0406Jhyneh [Moles/Vol]137 mmol/F504-241 [facility] Hospitalpecific gravity Auto test strip (U) [Rel density]Ordered By: Deepa Hendrickson on 78-12-2781Txnofzmx gravity (U) [Rel density] 1.0071.001-1.030[facility] Hospitalquamous epithelial cells detection in urine sediment by light microscopyOrdered By: Deepa Hendrickson on 08-79-5335Dvfrfzbqlh cells.squamous LM Ql (Urine sed)1-2 [HPF]0-2FGalion Community HospitalUrate [Mass/volume] in Serum or PlasmaOrdered By: Deepa Hendrickson on 22-31-9039Lqais [Mass/Vol]5.9 mg/dL2.3-6.6FGalion Community HospitalUrea nitrogen [Mass/volume] in Serum or PlasmaOrdered By: Deepa Perezr on 56-58-6333Ezmq nitrogen [Mass/Vol]31 mg/dL7-25[facility] Urine bacteria detection by automated methodOrdered By: Deepa Hendrickson on 59-37-3336Kfudwhkv Auto Ql (U)None seenNone SeenTrihealth Mccullough-Hyde Memorial HospitalUrine clarity by refractometry automatedOrdered By: Deepa Hendrickson on 77-75-8937Qfmvdyf Refractometry automated (U)ClearCleWilson HealthUrine glucose measurement by automated test strip (mass/volume) Ordered By: Deepa Hendrickson on 66-17-0810Alqtrns Auto test strip (U) [Mass/Vol] Normal mg/dLNoBlanchard Valley Health System [facility] HospitalUrine hemoglobin detection by automated test stripOrdered By: Deepa Hendrickson on 83-03-7135Auvagtcstu Auto test strip Ql (U)NegativeNegFulton County Health CenterUrine leukocyte esterase detection by automated test stripOrdered By: Deepa Hendrickson on 03-17-2023 Leukocyte esterase Auto test strip Ql (U)NegativeNegFulton County Health CenterUrine protein/creatinine ratioOrdered By: Deepa Hendrickson on 89-85-8816Jzdiajr/Creatinine (U) [Ratio]171 mg/g{Cre}0-200[facility] HospitalUrobilinogen Auto test strip (U) [Mass/Vol]Ordered By: Deepa Hendrickson on 80-97-1958Uusrdhnpuvao (U) [Mass/Vol]Normal mg/dLNoBlanchard Valley Health System [facility] HospitalVitamin D+Metabolites [Mass/volume] in Serum or PlasmaOrdered By: Deepa Hendrickson on 43-27-0856Trclvib D+Metabolites [Mass/Vol]73.7 ng/xE17-389 [facility] HospitalComment on above:VITAMIN D STATUS 25(OH)VITAMIN D RANGE (ng/mL) Deficient <20 Insufficient 20 to <93Fyefromqua09 to 100Reference: Austyn MF,Jose OCONNELL, Juan VILLARREAL, et al. Evaluation,treatment, and prevention of vitamin D deficiency; an Endocrine Society clinical practice guideline. JCEM. 2010; 96(7):1911-30.pH Auto test strip (U)Ordered By: Deepa Hendrickson on 67-07-2891qB (U)7.5 [pH]5.0-9.0[facility]36on 28-51-622760Qzlwv appt.NormalMercy Health St. Elizabeth Youngstown HospitalCoding Summary.on 97-58-1845Phpqlw Summary. CD:[id number]+PGhlYWQ+ES9HTPGbA75pjAGhlB1wD0HEGHeUHxlcYAIMKPiVFuNyhuNoO J7ywDVdEHRl [file] ly4hk8cy (more content not included)...[facility]red HealthcareC Urine on 04-28-7142Ewbpibfm identified Cx Nom (U)Microbiology PROCEDURE: Urine Culture [R1] SOURCE: U Random BODY SITE: COLLECTED DATE/TIME: 09/23/2022 11:24 EDT RECEIVED DATE/TIME: 09/23/2022 18:09 EDT START DATE/TIME: 09/23/2022 18:09 EDT FREE TEXT SOURCE: SHONNA GODOY PA-C, PA-C, JENNIFER E FINAL REPORTS Final Report [] Verified Date/Time: 09/25/2022 09:26 EDT 2,000 cfu/ml Mixed skin contaminants Performing Locations R1: This test was performed at: [facility], [address] [place] [address], [facility]- , [place], SsodbbJosmiiKindred HealthcareComment on above:Performed By: #### [id number] #### [facility] [address] [place] [address]Jelqcjx [Mass/volume] in Serum or Plasma by Bromocresol green (BCG) dye binding methoOrdered By: Deepa Hendrickson on 88-29-5144Ppgaknl BCG dye [Mass/Vol]4.2 g/dL3.5-5.7FGalion Community HospitalAmbulatory Visit Summaryon 25-92-3408Ffokfgtmtp Visit Summary ELLA FRANK :1940 Visit Date:09/23/2022 Ambulatory Visit Instructions Your Diagnosis Stress incontinence Recurrent UTI Postinfective urethral stricture in female Tests Performed Urnls Dip Stick Auto w/o Microscopy POC 39091 Your Care Team Attending Physician - SHONNA GODOY PA-C Primary Care Physician - DAVID PIKE [...] CHELY GAY, STEVE DUGGAN When: Where: [address] [place] [address] Medications What How Much When Instructions Unchanged [...] By Mouth 2 times a day Contact prescribingphysician if questions or concerns Unchanged hydrochlorothiazide (hydrochlorothiazide [...] Urnls Dip Stick Auto w/o Microscopy POC 53647 (09/23/2022) Bilirubin Urine Dipstick - Negative Blood Urine Dipstick - Negative Glucose Urine Dipstick - Negative Ketones Urine Dipstick - Negative Leukocytes Urine Dipstick - 3+ Large Nitrite Urine Dipstick - Negative Protein Urine Dipstick - Trace Specific [place] Urine Dipstick - 1.020 Urine Appearance Urine Dipstick - Clear Urine Color Urine Dipstick - Yellow Urobilinogen Urine Dipstick - Normal 0.2-1 EU/dl pH Urine Dipstick - 7 Allergies statins (Unknown) Decongestant (Rash) Macrodantin (Diarrhea) antihistamine/decongestants (itching/hives) penicillins (itching/rash) Problems Ongoing - Any problem that you are currently receiving treatment for. BMI 30.0-30.9,adult Cystitis Mixed incontinence Nocturia Post-void dribbling Postinfective urethral stricture in female Recurrent UTI Stress incontinence Urgency incontinence [employer] Urinary Incontinence Urinary incontinence refers to a condition in which a person is unable to control wher (more content not included)...[facility] Automated erythrocytes count in urine sediment (number/area)Ordered By: Deepa Hendrickson on 06-22-8310MAY Auto (Urine sed) [#/Area]0-1 [HPF]0-4FGalion Community HospitalAutomated leukocytes count in urine sediment (number/area)Ordered By: Deepa Hendrickson on 76-66-7378WMU Auto (Urine sed) [#/Area]0-1 [HPF]0-4FGalion Community HospitalBasophils Auto (Bld) [#/Vol]Ordered By: David Pike on 24-67-2494Buwyosoyz (Bld) [#/Vol]0.0 10*3/uL0.0-0.2FGalion Community HospitalBasophils/100 WBC Auto (Bld)Ordered By: David Pike on 09-23-2022 Basophils/100 WBC (Bld)0.8 %.[facility] HospitalBilirubin Test strip Ql (U)Ordered By: Deepa Hendrickson on 87-89-8033Zisrwrzga Ql (U)Negative NegativeTrihealth Mccullough-Hyde Memorial HospitalCalcium [Mass/volume] in Serum or PlasmaOrdered By: Deepa Hendrickson on 27-00-8714Runbpjt [Mass/Vol]10.5 mg/dL8.6-10.3 [facility] HospitalCarbon dioxide, total [Moles/volume] in Serum or PlasmaOrdered By: Deepa Hendrickson on 06-18-8636ZP4 [Moles/Vol]30.8 mmol/L 21.0-31.0[facility] HospitalChloride [Moles/volume] in Serum or PlasmaOrdered By: Deepa Hendrickson on 75-00-9826Usaffwlf [Moles/Vol]102 mmol/L98-107 [facility] HospitalColor Auto (U)Ordered By: Deepa Hendrickson on 87-71-1261Mwcab (U)YellowYellowTrihealth Mccullough-Hyde Memorial HospitalCreatinine [Mass/volume] in Serum or PlasmaOrdered By: Deepa Emeka on 26-91-6762Pljeopmrfa [Mass/Vol]1.76 mg/dL0.60-1.20[facility] HospitalCreatinine [Mass/volume] in UrineOrdered By: Deepa Emeka on 33-04-2907Sexagzwkku (U) [Mass/Vol]90.0 mg/dLTrihealth Mccullough-Hyde Memorial HospitalComment on above:No reference range establishedEosinophils Auto (Bld) [#/Vol]Ordered By: David Pike on 77-98-7010Vaxkuacsnnw (Bld) [#/Vol]0.3 10*3/uL0.0-0.45[facility] HospitalEosinophils/100 WBC Auto (Bld)Ordered By: David Pike on 33-13-6962Pmzummiyldt/100 WBC (Bld)5.3 %.[facility] Erythrocyte distribution width Auto (RBC) [Ratio]Ordered By: David Pike on 03-08-2885Rjvzproiqqw distribution width (RBC) [Ratio]13.9 %11.9-15.3FGalion Community HospitalGlucose [Mass/volume] in Serum or PlasmaOrdered By: Deepa Hendrickson on 99-18-2363Kpqdzut [Mass/Vol]111 mg/pK09-944PsxavcibxTrihealth Mccullough-Hyde Memorial HospitalComment on above:ADA recommended reference rangeRandom Glucose Reference Range is dependent on time and content of last meal. Glucose of more than 200 mg/dL in a nonstressed, ambulatory subject supports the diagnosisof Diabetes Mellitus.Hematocrit Auto (Bld) [Volume fraction]Ordered By: David Pike on 71-17-5452Srtxgrixsk (Bld) [Volume fraction]37.2 %34.0-46.4FGalion Community HospitalHemoglobin [Mass/volume] in BloodOrdered By: Dvaid Pike on 09-70-2592Gbujkbfvhx (Bld) [Mass/Vol]12.9 g/dL11.8-15.4FGalion Community HospitalKetones Auto test strip (U) [Mass/Vol]Ordered By: Deepa Hendrickson on 98-84-6629Snmrcek (U) [Mass/Vol]NegativeNegativeTrihealth Mccullough-Hyde Memorial HospitalLaboratory - Chemistry and Chemistry - challengeOrdered By: Deepa Hendrickson on 95-89-9223JWZ/1.73 sq M.predicted MDRD (S/P/Bld) [Vol rate/Area]28.542 mL/min/{1.73_m2}[facility] HospitalLaboratory - UrinalysisOrdered By: Deepa Hendrickson on 36-56-6800Ersafmo casts LM Ql (Urine sed)0-8 [LPF]0-8 [facility] HospitalLeukocytes [#/volume] corrected for nucleated erythrocytes in Blood by Automated counOrdered By: David Pike on 47-94-3558ORI corrected for nucl RBC Auto (Bld) [#/Vol]5.4 10*3/uL3.8-11.6FGalion Community HospitalLymphocytes Auto (Bld) [#/Vol]Ordered By: David Pike on [id number] (Bld) [#/Vol]1.4 10*3/uL1.00-4.8[facility] HospitalLymphocytes/100 WBC Auto (Bld)Ordered By: David Pike on 09-23-2022 Lymphocytes/100 WBC (Bld)25.5 %.[facility] Auto (RBC) [Entitic mass]Ordered By: David Pike on [id number] (RBC) [Entitic mass]30.2 pg24.7-34.3FGalion Community HospitalMCHC Auto (RBC) [Mass/Vol]Ordered By: David Pike on 77-04-1019SWHV (RBC) [Mass/Vol]34.7 g/dL32.0-35.0[facility] HospitalMCV Auto (RBC) [Entitic vol]Ordered By: David Pike on 29-34-8096PSF (RBC) [Entitic vol]87.2 yW57-106WdfrpauadTrihealth Mccullough-Hyde Memorial Hospital Magnesium [Mass/volume] in Serum or PlasmaOrdered By: Deepa Hendrickson on 09-23-2022 Magnesium [Mass/Vol]2.3 mg/dL1.9-2.7FGalion Community HospitalMonocytes Auto (Bld) [#/Vol]Ordered By: David Pike on 81-99-0307Gwujocrni (Bld) [#/Vol] 0.4 10*3/uL0.0-0.8[facility] HospitalMonocytes/100 WBC Auto (Bld) Ordered By: David Pike on 12-25-0791Wdjxlbbbh/100 WBC (Bld)7.6 %.[facility] HospitalNeutrophils Auto (Bld) [#/Vol]Ordered By: David Pike on 62-11-7001Jscmxubesgy (Bld) [#/Vol]3.3 10*3/uL1.8-7.7FGalion Community HospitalNeutrophils/100 WBC Auto (Bld)Ordered By: David Pike on 09-23-2022 Neutrophils/100 WBC (Bld)60.8 %.[facility] HospitalNitrite Test strip Ql (U)Ordered By: Deepa Hendrickson on 92-45-7742Nxyrkok Ql (U)NegativeNegative [facility] HospitalNo Panel InformationOrdered By: Deepa Hendrickson on 82-36-0762Tycfbcjd Creatinine Clearance (ChemN/AFGalion Community HospitalNucleated erythrocytes [Presence] in Blood by Automated countOrdered By: David Pike on 96-02-2754Ruayyzqvw RBC Auto Ql (Bld)0.2 /100{WBC}0-0.5FGalion Community HospitalParathyrin.intact [Mass/volume] in Serum or Plasma Ordered By: Deepa Hendrickson on 81-02-6759Mlikiudgnf.intact [Mass/Vol]11.0 pg/mL12-88 [facility] HospitalPatient Educationon 48-66-0152Irpvyzx Education Urology Urinary Incontinence Urinary incontinence refers [...] the bladder, urethra, and sphincter can store andrelease urine. There are different types of urodynamic [...] of moderate-intensity exercise every week. Ask your healthcare provider which activities are safe for you. [...] urges. This can include distraction techniques or controlledbreathing exercises. ? Medicines to relax the bladder muscles and prevent bladder spasms. ? Medicines to help slow or prevent the growth of a man's prostate. ? Botox injections. These can help relax the bladder muscles. ? Using pulses of electricity to help change bladder reflexes (electrical nerve stimulation). ? For women, using a biomedical engineering technician to prevent urine leaks. This is a [...] after experiencing incontinence. General instructions ? Take wjed-xbk-unaamxe and prescription medicines only as (more content not included)...NormalHenry County HospitalPhosphate [Mass/volume] in Serum or PlasmaOrdered By: Deepa Hendrickson on 62-49-9032Facqhykej [Mass/Vol]3.7 mg/dL3.7-7.2 [facility] HospitalPlatelet mean volume Auto (Bld) [Entitic vol] Ordered By: David Pike on 83-65-6959Fxyghijs mean volume (Bld) [Entitic vol] 8.8 fL6.3-10.7FGalion Community HospitalPlatelets Auto (Bld) [#/Vol] Ordered By: David Pike on 71-34-0969Zmavqlmvh (Bld) [#/Vol]199 10*3/nP030-312 [facility] HospitalPotassium [Moles/volume] in Serum or Plasma Ordered By: Deepa Hendrickson on 83-74-5423Jmhsldyhp [Moles/Vol]3.7 mmol/L3.5-5.1 [facility] HospitalProtein Auto test strip (U) [Mass/Vol]Ordered By: Deepa Perezr on 83-97-4205Hzjcxzy (U) [Mass/Vol]NegativeNegativeTrihealth Mccullough-Hyde Memorial HospitalProtein [Mass/volume] in UrineOrdered By: Deepa Hendrickson on 98-47-3142Nwygcnk (U) [Mass/Vol]12 mg/dL0-9[facility] HospitalRBC Auto (Bld) [#/Vol]Ordered By: David Pike on 41-73-0316RTZ (Bld) [#/Vol]4.27 10*6/uL3.60-5.00[facility] Hospitalerum or plasma anion gap determinationOrdered By: Deepa Hendrickson on 92-10-3233Qdvky gap [Moles/Vol]12.9 mmol/L6.0-15.0[facility] Hospitalodium [Moles/volume] in Serum or PlasmaOrdered By: Deepa Hendrickson on 70-00-8431Etouvw [Moles/Vol]142 mmol/O860-628 [facility] Hospitalpecific gravity Auto test strip (U) [Rel density]Ordered By: Deepa Hendrickson on 75-68-1504Fgbuflbc gravity (U) [Rel density] 1.0131.001-1.030[facility] Hospitalquamous epithelial cells detection in urine sediment by light microscopyOrdered By: Deepa Hendrickson on 50-94-7265Shxjevfqql cells.squamous LM Ql (Urine sed)None seen [HPF]0-2FGalion Community HospitalThyrotropin [Units/volume] in Serum or PlasmaOrdered By: David Pike on 55-57-7277WKR Qn4.66 m[IU]/L0.45-5.33[facility] HospitalThyroxine (T4) free [Mass/volume] in Serum or PlasmaOrdered By: David Pike on 53-35-4357Yngo T4 [Mass/Vol]1.03 ng/dL0.61-1.12[facility] HospitalUrate [Mass/volume] in Serum or PlasmaOrdered By: Deepa Hendrickson on 61-44-2587Mzopz [Mass/Vol]7.8 mg/dL2.3-6.6FGalion Community HospitalUrea nitrogen [Mass/volume] in Serum or PlasmaOrdered By: Deepa Emeka on 09-23-2022 Urea nitrogen [Mass/Vol]33 mg/dL7-25[facility] HospitalUrine bacteria detection by automated methodOrdered By: Deepa Hendrickson on 09-23-2022 Bacteria Auto Ql (U)None seenNone SeenTrihealth Mccullough-Hyde Memorial HospitalUrine clarity by refractometry automatedOrdered By: Deepa Hendrickson on 67-49-5083Pfdmdtl Refractometry automated (U)CloudyCleWilson HealthUrine glucose measurement by automated test strip (mass/volume)Ordered By: Deepa Hendrickson on 84-81-3873Zumrfaa Auto test strip (U) [Mass/Vol]Normal mg/dLMercy Memorial HospitalUrine hemoglobin detection by automated test stripOrdered By: Deepa Hendrickson on 29-09-6906Lvguzubuqx Auto test strip Ql (U)NegativeNegative [facility] HospitalUrine leukocyte esterase detection by automated test stripOrdered By: Deepa Hendrickson on 36-27-1137Rsybqkedg esterase Auto test strip Ql (U)NegativeNegFulton County Health CenterUrine protein/creatinine ratioOrdered By: Deepa Hendrickson on 52-80-1354Rqpjlpf/Creatinine (U) [Ratio]133 mg/g{Cre}0-200[facility] HospitalUrobilinogen Auto test strip (U) [Mass/Vol]Ordered By: Deepa Hendrickson on 14-25-4915Xomuwgfnqtje (U) [Mass/Vol]Normal mg/dLNoBlanchard Valley Health System [facility] HospitalVitamin B12 ser/plasOrdered By: David Pike on 30-16-7723Gbvtwfqil (Vitamin B12) [Mass/Vol] 1245 pg/cL304-103XveibotrgTrihealth Mccullough-Hyde Memorial HospitalVitamin D+Metabolites [Mass/volume] in Serum or PlasmaOrdered By: Deepa Hendrickson on 71-16-1658Iryaloq D+Metabolites [Mass/Vol]59.0 ng/rH39-227LxvyiouhdTrihealth Mccullough-Hyde Memorial HospitalComment on above:VITAMIN D STATUS 25(OH)VITAMIN D RANGE (ng/mL) Deficient <20 Insufficient 20 to <27Xfuscftboa02 to 100Reference: Austyn MF,Jose OCONNELL, Juan VILLARREAL, et al. Evaluation,treatment, and prevention of vitamin D deficiency; an Endocrine Society clinical practice guideline. JCEM. 2010; 96 (7):1911-30.WBC Auto (Bld) [#/Vol]Ordered By: David Pike on 74-49-1956NNU (Bld) [#/Vol]5.4 10*3/uL3.8-11.6FGalion Community HospitalpH Auto test strip (U)Ordered By: Deepa Hendrickson on 61-95-4422bS (U)7.0 [pH]5.0-9.0[facility] HospitalAutomated erythrocytes count in urine sediment (number/area)Ordered By: Deepa Hendrickson on 85-15-3543TQY Auto (Urine sed) [#/Area] 0-1 [HPF]0-4FGalion Community HospitalAutomated leukocytes count in urine sediment (number/area)Ordered By: Deepa Hendrickson on 14-04-7178WRI Auto (Urine sed) [#/Area]10-19 [HPF]0-4FGalion Community HospitalBilirubin Test strip Ql (U)Ordered By: Deepa Hendrickson on 85-87-4154Nbgzngxlz Ql (U)NegativeNegative [facility] HospitalBlood hemoglobin measurement (mass/volume) Ordered By: Deepa Hendrickson on 39-08-1533Sutdgvedok (Bld) [Mass/Vol]12.0 g/dL 11.8-15.4FGalion Community HospitalBody fluid albumin measurement (mass/volume)Ordered By: Deepa Hendrickson on 38-42-2187Rmbbggu (Body fld) [Mass/Vol] 3.6 g/dL3.2-5.5FGalion Community HospitalColor Auto (U)Ordered By: Deepa Hendrickson on 38-83-7136Ctjkg (U)YellowYellowTrihealth Mccullough-Hyde Memorial Hospital Creatinine [Mass/volume] in UrineOrdered By: Deepa Hendrickson on 08-48-9023Mkvezwbwki (U) [Mass/Vol]135.4 mg/dLTrihealth Mccullough-Hyde Memorial HospitalComment on above:No reference range establishedCreatinine and Glomerular filtration rate.predicted panel (S/P/Bld)Ordered By: Deepa Hendrickson on 35-00-6224Dzwdgjavaj [Mass/Vol]1.73 mg/dL0.44-1.03[facility] HospitalErythrocyte distribution width Auto (RBC) [Ratio]Ordered By: Deepa Hendrickson on 55-49-9760Lhmubtjured distribution width (RBC) [Ratio]14.2 %11.9-15.3FGalion Community HospitalEstimated glomerular filtration rate (GFR) non- AmericanOrdered By: Deepa Hendrickson on 51-88-6196JMC/1.73 sq M.predicted among non-blacks MDRD (S/P/Bld) [Vol rate/Area]28 mL/MinTrihealth Mccullough-Hyde Memorial HospitalHematocrit Auto (Bld) [Volume fraction]Ordered By: Deepa Hendrickson on 90-00-2731Qjmkjiovyd (Bld) [Volume fraction]36.1 %34.0-46.4FGalion Community HospitalKetones Auto test strip (U) [Mass/Vol]Ordered By: Deepa Hendrickson on 76-07-5337Qtmouyk (U) [Mass/Vol] NegativeNegativeTrihealth Mccullough-Hyde Memorial HospitalLaboratory - Chemistry and Chemistry - challengeOrdered By: Deepa Hendrickson on 93-48-0538Bqlfvpbyz [Mass/Vol] 2.2 mg/dL1.6-2.6FGalion Community HospitalLaboratory - UrinalysisOrdered By: Deepa Hendrickson on 88-02-7845Alszvoe casts LM Ql (Urine sed)0-8 [LPF]0-8 [facility] Auto (RBC) [Entitic mass]Ordered By: Deepa Hendrickson on 80-04-4670BQU (RBC) [Entitic mass]30.0 pg24.7-34.3FUniversity Hospitals Samaritan Medical Center Auto (RBC) [Mass/Vol]Ordered By: Deepa Hendrickson on 03-19-2022 MCHC (RBC) [Mass/Vol]33.2 g/dL32.0-35.0[facility] HospitalMCV Auto (RBC) [Entitic vol]Ordered By: Deepa Hendrickson on 89-33-6865ZTY (RBC) [Entitic vol] 90.3 bZ56-256YwrohllojTrihealth Mccullough-Hyde Memorial HospitalNitrite Test strip Ql (U)Ordered By: Deepa Hendrickson on 31-73-3834Jdvckgx Ql (U)NegativeNegativeTrihealth Mccullough-Hyde Memorial HospitalNo Panel InformationOrdered By: Deepa Hendrickson on 13-31-251357- Hydroxy Vitamin D Total77.3 ng/nZ87-110NzbcrokbsTrihealth Mccullough-Hyde Memorial HospitalComment on above:VITAMIN D STATUS 25(OH)VITAMIN D RANGE (ng/mL) Deficient <20 Insufficient 20 to <30 Sufficient 30 to 100 Reference: Austyn MF,Jose NC, Juan VILLARREAL, et al. Evaluation,treatment, and prevention of vitamin D deficiency; an Endocrine Society clinical practice guideline. JCEM. 2010; 96(7):1911-30.Estimated GFR ()34 mL/MinTrihealth Mccullough-Hyde Memorial HospitalComment on above:GFR estimated reference range: According to KDOQI guidelines, <60 ml/min/1.73m2 is sufficient todiagnose a patient with chronic kidney disease.Pharmacy Creatinine Clearance (ChemN/[facility] DaytonPhosphate [Mass/volume] in Serum or PlasmaOrdered By: Deepa Hendrickson on 22-82-8105Mblxtntrk [Mass/Vol]4.1 mg/dL2.5-4.6FGalion Community HospitalPlatelet mean volume Auto (Bld) [Entitic vol]Ordered By: Deepa Hendrickson on 32-55-2070Awtbiowk mean volume (Bld) [Entitic vol]9.1 fL6.3-10.7FGalion Community HospitalPlatelets Auto (Bld) [#/Vol]Ordered By: Deepa Hendrickson on 16-07-5406Wsljluxbr (Bld) [#/Vol]242 10*3/uL 150-450[facility] HospitalProtein Auto test strip (U) [Mass/Vol] Ordered By: Deepa Hendrickson on 33-85-3607Cgulknp (U) [Mass/Vol]NegativeNegative [facility] HospitalProtein [Mass/volume] in UrineOrdered By: Deepa Hendrickson on 14-46-7159Knhpeaa (U) [Mass/Vol]13 mg/dL0-9[facility] HospitalRBC Auto (Bld) [#/Vol]Ordered By: Deepa Hendrickson on 13-05-7132FRB (Bld) [#/Vol]4.00 10*6/uL3.60-5.00[facility] Hospitalerum or plasma anion gap determinationOrdered By: Deepa Hendrickson on 69-56-5302Urbyq gap [Moles/Vol]15.0 mmol/L6.0-15.0[facility] Hospitalerum or plasma calcium measurement (mass/volume)Ordered By: Deepa Hendrickson on 57-66-2384Jslrntr [Mass/Vol]10.0 mg/dL8.2-10.2FProMedica Defiance Regional Hospitalerum or plasma chloride measurement (moles/volume)Ordered By: Deepa Hendrickson on 24-35-0538Qujaxymk [Moles/Vol]99 mmol/I50-232FckzqekpzBluffton Hospitalerum or plasma glucose measurement (mass/volume)Ordered By: Deepa Hendrickson on 85-33-7868Xdmtgsk [Mass/Vol]107 mg/gG66-791NutrizckcTrihealth Mccullough-Hyde Memorial HospitalComment on above:ADA recommended reference range Random Glucose Reference Range is dependent on time and content of last meal. Glucose of more than 200 mg/dL in a nonstressed, ambulatory subject supports the diagnosis of Diabetes Mellitus.Serum or plasma intact parathyroid hormone measurement (mass/volume)Ordered By: Deepa Hendrickson on 86-77-3161Odpfsonbkl.intact [Mass/Vol]25.4 pg/pS46-77UbdupzzeeBluffton Hospitalerum or plasma potassium measurement (moles/volume)Ordered By: Deepa Hendrickson on 03-19-2022 Potassium [Moles/Vol]4.3 mmol/L3.5-5.1FProMedica Defiance Regional Hospitalerum or plasma sodium measurement (moles/volume)Ordered By: Deepa Hendrickson on 03-19-2022 Sodium [Moles/Vol]140 mmol/B844-982TqdnixijpBluffton Hospitalerum or plasma total carbon dioxide measurement (moles/volume)Ordered By: Deepa Hendrickson on 29-94-8960UT8 [Moles/Vol]30.3 mmol/L22.0-30.0[facility] Serum or plasma urea nitrogen measurement (mass/volume)Ordered By: Deepa Hendrickson on 93-03-2793Hhug nitrogen [Mass/Vol]35 mg/dL9-23[facility] Hospitalpecific gravity Auto test strip (U) [Rel density]Ordered By: Deepa Hendrickson on 38-22-0343Ovlbifod gravity (U) [Rel density]1.0171.001-1.030[facility] Hospitalquamous epithelial cells detection in urine sediment by light microscopyOrdered By: Deepa Hendrickson on 39-02-0574Inodjtjcqy cells.squamous LM Ql (Urine sed)3-4 [HPF]0-2FGalion Community HospitalUrine bacteria detection by automated methodOrdered By: Deepa Hendrickson on 40-22-3002Ubzjtjib Auto Ql (U)None seenNone SeenTrihealth Mccullough-Hyde Memorial HospitalUrine clarity by refractometry automatedOrdered By: Deepa Hendrickson on 58-46-8293Qmubmiu Refractometry automated (U)ClearCleWilson HealthUrine glucose measurement by automated test strip (mass/volume)Ordered By: Deepa Hendrickson on 41-86-3860Rkmvhhq Auto test strip (U) [Mass/Vol]Normal mg/dLNormalTrihealth Mccullough-Hyde Memorial HospitalUrine hemoglobin detection by automated test stripOrdered By: Deepa Hendrickson on 18-94-1251Wzywzfjsgq Auto test strip Ql (U)NegativeNegative [facility] HospitalUrine leukocyte esterase detection by automated test stripOrdered By: Deepa Hendrickson on 14-02-1847Dldidyyue esterase Auto test strip Ql (U)2+NegativeTrihealth Mccullough-Hyde Memorial HospitalUrine protein/creatinine ratioOrdered By: Deepa Hendrickson on 14-23-0223Uysakvz/Creatinine (U) [Ratio]96 mg/g{Cre}0-200[facility] HospitalUrobilinogen Auto test strip (U) [Mass/Vol]Ordered By: Deepa Hendrickson on 31-39-4237Jqxhzfptugax (U) [Mass/Vol]Normal mg/dLNormalTrihealth Mccullough-Hyde Memorial HospitalWBC Auto (Bld) [#/Vol]Ordered By: Deepa Hendrickson on 19-78-6943HQD (Bld) [#/Vol]5.8 10*3/uL3.8-11.6FGalion Community HospitalpH Auto test strip (U)Ordered By: Deepa Hendrickson on 61-75-6650xH (U) 6.5 [pH]5.0-9.0[facility] HospitalCULTURE URINEon 03-18-2022 CULTURE URINECulture Observations: NO GROWTH.NormalHocking Valley Community HospitalComment on above:Performed By: #### FT4 #### [facility] [address] [place] [address] Dr. Ana Maria Russell URINEon 87-39-4083MZNNTIJ URINEIsolate 1 Escherichia coli >100,000 cfu/mL of ORGANISM 1 Escherichia coli ANTIBIOTIC M.I.C RX STATUS Ampicillin 4 S F Ampicillin/Sulbactam <=2 S F Piperacillin/Tazobactam <=4 S F Cefazolin <=4 S F Ceftazidime <=1 S F Ceftriaxone <=1 S F Ertapenem <=0.5 S F Imipenem <=0.25 S F Amikacin <=2 S F Gentamicin <=1 S F Tobramycin <=1 S F Ciprofloxacin >=4 R F Levofloxacin >=8 R F Nitrofurantoin <=16 S F Trimethoprim/Sulfamethoxazole <=20 S FNormalThe [facility] SystemComment on above:Performed By: #### FT4 #### [facility] [address] [place] [address] Dr. Ana Maria Liang RANDOM W/MICROSCOPICon 69-97-7348HJMQRHAXAFGBAFgcvpwrmHEJF SEENHocking Valley Community HospitalComment on above:Performed By: #### FT4 #### [facility] [address] [place] [address] Dr. Ana Maria Perkinsirubin Ql (U)NegativeNormalNEGATIVEThe [facility] Comment on above:Performed By: #### FT4 #### [facility] [address] [address] [address] Ana Maria SellersCASTNONE SEENNormalNONE SEENHocking Valley Community HospitalComment on above:Performed By: #### FT4 #### [facility] [address] [address] [address] Ana Maria Adlerarity (U)CLEARNormalCLEARHocking Valley Community HospitalComment on above: Performed By: #### FT4 #### [facility] [address] [address] [address] Ana Maria Agarwallor (U)LT. YELLOWNormalYELLOWHocking Valley Community HospitalComment on above:Performed By: #### FT4 #### [facility] [address] [place] [address] Dr. Ana Maria SellersCrystals LM Nom (Urine sed)NONE SEENNormalNONE SEENHocking Valley Community HospitalComment on above:Performed By: #### FT4 #### [facility] [address] [place] [address] Dr. Ana Maria Kleinthelial cells LM Ql (Urine sed)FEWAbnormalNONE SEEN /RAREHocking Valley Community HospitalComment on above:Performed By: #### FT4 #### [facility] [address] [place] [address] Dr. Ana Maria SellersGlucose Ql (U)NegativeNormalNEGATIVEHocking Valley Community HospitalComment on above:Performed By: #### FT4 #### [facility] [address] [address] [address] Ana Maria SellersHemoglobin Ql (U)LARGEAbnormalNEGATIVEOhiohealth Grady Memorial Hospital on above:Performed By: #### FT4 #### [facility] [address] [place] [address] Dr. Ana Maria SellersKetones Ql (U)NegativeNormalNEGATIVEHocking Valley Community HospitalComment on above:Performed By: #### FT4 #### [facility] [address] [address] [address] Ana Maria SellersLEUKOCYTESLARGEAbnormalNEGATIVEHocking Valley Community HospitalComment on above:Performed By: #### FT4 #### [facility] [address] [place] [address] Dr. Ana Maria QuevedoCOUSNONWillam SEENNormalNONE SEENHocking Valley Community HospitalComment on above:Performed By: #### FT4 #### [facility] [address] [place] [address] Dr. Ana Maria Sancheztrite Ql (U)NegativeNormalNEGATIVEThe [facility] SystemComment on above:Performed By: #### FT4 #### [facility] [address] [place] [address] Dr. Ana Maria SellerspH (U)6.0 [pH]Normal5-9The [facility] Hospitalment on above: Performed By: #### FT4 #### [facility] [address] [place] [address] Dr. Ana Maria SellersGdrayDAK36-63Fcdqnitr8-4Sqy [facility] SystemComment on above: Performed By: #### FT4 #### [facility] [address] [place] [address] Dr. Ana Maria SellersSPEC GRAVITY1.824Yvbdcb0.005-<=1.025The [facility] on above:Performed By: #### FT4 #### [facility] [address] [place] [address] Dr. Ana Maria SellersUA PROTEIN>300AbnormalNEGATIVE/ TRACEThe [facility] SystemComment on above:Performed By: #### FT4 #### [facility] [address] [place] [address] Dr. Ana Maria Almarazbilinogen Qn (U)0.2 {Chavez'U}/dLNormal0.2 - 1.0The [facility] SystemComment on above:Performed By: #### FT4 #### [facility] [address] [place] [address] Dr. Ana Maria SellersWBC (U) [#/Vol]/uLAbnormalNONE SEENThe [facility]aman HospitalComment on above:Performed By: #### FT4 #### [facility] [address] [place] [address] Dr. Ana Maria Dickens AUTO DIFFon 61-20-4277ONTW #0.0 103/ulNormal0.0-0.1The [facility] SystemComment on above:Performed By: #### FT4 #### [facility] [address] [place] [address] Dr. Ana Maria SellersBasophils/100 WBC (Bld)0.2 %Normal0.2-2.0The [facility] Comment on above:Performed By: #### FT4 #### [facility] [address] [place] [address] Dr. Ana Maria Santos #0.0 103/ulNormal0.0-0.7The [facility] SystemComment on above: Performed By: #### FT4 #### [facility] [address] [place] [address] Dr. Ana Maria Walkerosinophils/100 WBC (Bld)0.4 %Critically low0.9-7.0The [facility] SystemComment on above:Performed By: #### FT4 #### [facility] [address] [place] [address] Dr. Ana Maria Walkerrythrocyte distribution width (RBC) [Ratio]12.9 %Rndaod96.0-15.0 The [facility] SystemComment on above:Performed By: #### FT4 #### [facility] [address] [place] [address] Dr. Ana Maria SellersHematocrit (Bld) [Volume fraction]38.6 %Buzdoo53.0-48.0The [facility] SystemComment on above:Performed By: #### FT4 #### [facility] [address] [place] [address] Dr. Ana Maria SellersHemoglobin (Bld) [Mass/Vol]12.8 g/sWJwvllg56.0-16.0The [facility] SystemComment on above:Performed By: #### FT4 #### [facility] [address] [place] [address] Dr. Ana Maria Vee #0.04 10e3/ulCritically high0.00-0.03The [facility] Comment on above:Performed By: #### FT4 #### [facility] [address] [place] [address] Dr. Ana Maria eVe %0.4 %Normal0.0-0.5The [facility] SystemComment on above: Performed By: #### FT4 #### [facility] [address] [place] [address] Dr. Ana Maria Reynoso #1.9 103/ulNormal1.2-3.8The [facility] HospitalComment on above:Performed By: #### FT4 #### [facility] [address] [place] [address] Dr. Ana Maria Elizondohocytes/100 WBC (Bld)17.8 %Critically low20.5-60.0The [facility] SystemComment on above:Performed By: #### FT4 #### [facility] [address] [place] [address] Dr. Ana Maria DaileyUAL DIFF REQNONormalThe [facility] SystemComment on above: Performed By: #### FT4 #### [facility] [address] [place] [address] Dr. Ana Maria Farmer (RBC) [Entitic mass]30.0 rcEcfvxt83.7-34.0The [facility] SystemComment on above:Performed By: #### FT4 #### [facility] [address] [place] [address] Dr. Ana Maria Thomason (RBC) [Mass/Vol]33.2 g/uQStnvlz06.9-35.2The [facility] SystemComment on above:Performed By: #### FT4 #### [facility] [address] [place] [address] Dr. Ana Maria Granger (RBC) [Entitic vol]90.6 cJXijlfb41.0-99.0The [facility] SystemComment on above:Performed By: #### FT4 #### [facility] [address] [place] [address] Dr. Ana Maria Hernandez #0.6 103/ulNormal0.3-0.8The [facility] SystemComment on above:Performed By: #### FT4 #### [facility] [address] [address] [address] Ana Maria Franciscoocytes/100 WBC (Bld)5.4 %Normal1.7-12.0The [facility] Comment on above:Performed By: #### FT4 #### [facility] [address] [place] [address] Dr. Ana Maria Ramos #8.1 103/ulCritically high1.4-6.5The [facility] Comment on above:Performed By: #### FT4 #### [facility] [address] [place] [address] Dr. Ana Maria Zamanutrophils/100 WBC (Bld)75.8 %Critically high43.0-75.0The [facility] SystemComment on above:Performed By: #### FT4 #### [facility] [address] [place] [address] Dr. Ana Maria Tuckerlet mean volume (Bld) [Entitic vol]10.0 fLNormal9.5-13.5The [facility] SystemComment on above:Performed By: #### FT4 #### [facility] [address] [place] [address] Dr. Ana Maria SellersPLT336 103/bqOhcyeg669-611Qco [facility] SystemComment on above: Performed By: #### FT4 #### [facility] [address] [place] [address] Dr. Ana Maria SellersRBC4.26 106/ulNormal4.20-5.40The [facility] SystemComment on above:Performed By: #### FT4 #### [facility] [address] [place] [address] Dr. Ana Maria SellersWBC10.7 103/ulNormal4.0-11.0The [facility] SystemComment on above:Performed By: #### FT4 #### [facility] [address] [place] [address] Dr. Ana Maria Villatoro T4on 98-68-2732Mebn T4 [Mass/Vol]1.06 ng/dLNormal0.76-1.46 The [facility] SystemComment on above:Performed By: #### FT4 #### [facility] [address] [place] [address] Dr. Ana Maria SellersLIPASEon 62-18-8960Ailxrh [Catalytic activity/Vol]175.0 U/LNormal 73.0-393.0The [facility] SystemComment on above:Performed By: #### LIPA, TSH, CMP #### [facility] [address] [place] [address] Dr. Ana Maria SellersPROF 14(COMP METB)on 46-98-4406Mgnqnga [Mass/Vol]3.6 g/dLNormal 3.4-5.0The [facility] Hospitalment on above:Performed By: #### LIPA, TSH, CMP #### [facility] [address] [place] [address] Dr. Ana Maria SellersAlbumin/Globulin [Mass ratio]1.0 {ratio}NormalThe [facility] SystemComment on above:Performed By: #### LIPA, TSH, CMP #### [facility] [address] [place] [address] Dr. Ana Maria InmanP [Catalytic activity/Vol]63 U/XFrmnod45-100Pml [facility] Hospitalment on above:Performed By: #### LIPA, TSH, CMP #### [facility] [address] [place] [address] Dr. Ana Maria Damon [Catalytic activity/Vol]15 U/MPxsqsx63-36Yrm [facility] Hospitalment on above:Performed By: #### LIPA, TSH, CMP #### [facility] [address] [place] [address] Dr. Ana Maria Waldron gap [Moles/Vol]15.2 mmol/LNormalThe [facility] Comment on above:Performed By: #### LIPA, TSH, CMP #### [facility] [address] [place], [place] [id number] Dr. Ana Maria SellersAST [Catalytic activity/Vol]10 U/LCritically fmv12-95Eeg [facility] SystemComment on above:Performed By: #### LIPA, TSH, CMP #### [facility] [address] [place] [address] Dr. Ana Maria SellersBilirubin [Mass/Vol]0.5 mg/dLNormal0.2-1.0[facility] Comment on above:Performed By: #### LIPA, TSH, CMP #### [facility] [address] [place] [address] Dr. Ana Maria SellersCalcium [Mass/Vol]9.5 mg/dLNormal8.5-10.1The [facility] Comment on above:Performed By: #### LIPA, TSH, CMP #### [facility] [address] [place] [address] Dr. Ana Maria SellersChloride [Moles/Vol]98 mmol/VMmzokn42-162Qbh [facility] Comment on above:Performed By: #### LIPA, TSH, CMP #### [facility] [address] [place] [address] Dr. Ana Maria SellersCO2 [Moles/Vol]25.4 mmol/FFsgdll63.0-32.0[facility] Comment on above:Performed By: #### LIPA, TSH, CMP #### [facility] [address] [place] [address] Dr. Ana Maria SellersCreatinine [Mass/Vol]3.15 mg/dLCritically high0.55-1.02The [facility] SystemComment on above:Performed By: #### LIPA, TSH, CMP #### [facility] [address] [place] [address] Dr. Ana Maria WalkerGFR-AF YZOOEJBU82 mL/min/1.41m5Djpvkmzibx low>=60The [facility] SystemComment on above:Performed By: #### LIPA, TSH, CMP #### [facility] [address] [address] [address] Ana Maria WalkerGFR-NON AF ZJCKGFSM93 mL/min/1.69p0Ujhfilgnez low>=60The [facility] SystemComment on above:Performed By: #### LIPA, TSH, CMP #### [facility] [address] [place] [address] Dr. Ana Maria SellersGlobulin (S) [Mass/Vol]3.5 g/dLNormLima Memorial HospitalComment on above:Performed By: #### LIPA, TSH, CMP #### [facility] [address] [place] [address] Dr. Ana Maria SellersGlucose [Mass/Vol]132 mg/dLCritically ajhi88-092Auo [facility] SystemComment on above:Performed By: #### LIPA, TSH, CMP #### [facility] [address] [place] [address] Dr. Ana Maria SellersPotassium [Moles/Vol]4.6 mmol/LNormal3.5-5.1The [facility] Comment on above:Performed By: #### LIPA, TSH, CMP #### [facility] [address] [place] [address] Dr. Ana Maria SellersProtein [Mass/Vol]7.1 g/dLNormal6.4-8.2The [facility] Comment on above:Performed By: #### LIPA, TSH, CMP #### [facility] [address] [place] [address] Dr. Ana Maria SellersSodium [Moles/Vol]134 mmol/LCritically dzq521-147Qri [facility] SystemComment on above:Performed By: #### LIPA, TSH, CMP #### [facility] [address] [place] [address] Dr. Ana Maria SellersUrea nitrogen [Mass/Vol]57.0 mg/dLCritically high7.0-18.0The [facility] SystemComment on above:Performed By: #### LIPA, TSH, CMP #### [facility] [address] [place] [address] Dr. Ana Maria SellersUrea nitrogen/Creatinine [Mass ratio]18.1 mg/mgNoBucyrus Community HospitalComment on above:Performed By: #### LIPA, TSH, CMP #### [facility] [address] [place] [address] Dr. Ana Maria Jarrett 85-48-6921ZSL0.015 uIU/mLNormal0.358-3.740The [facility] SystemComment on above:Performed By: #### DARLINE RAY, CMP #### [facility] [address] [place] [address] Dr. Ana Maria SelelrsCovid-19 PCR (CVDTB)on 70-45-9467CZVD-CoV-2 (COVID-19) RNA ARLEEN+probe Ql (Unsp spec)DetectedCritically abnormalNOT DETECTEDThe [facility] SystemComment on above:Result Comment: This test is not yet approved or cleared by the [place] FDA. When there are no FDA-approved or cleared tests available, and other criteria are met, FDA can make tests available under an emergency access mechanism called an Emergency Use Authorization (EUA). The EUA for this test is supported by the Real Time Operator of Health and Human Service's (HHS's) declaration [...] no longer be used). Performed By: #### CVDTB #### [facility] [address] [place] [address] Dr. Ana Maria Lu D 1 25 DIHYDROXYon 46-52-9321Trhcnnmtnr(1,25 di-OH Vit D)57.7 pg/dHHtwynq97.9-79.3The [facility] SystemComment on above:Result Comment: Effective December 16, 2021 Calcitriol(1,25 di-OH Vit D) reference interval will be changing to: pg/mL . 0 - 6 months: 44.3 - 212.9 7 months - 1 year: 40.3 - 112.4 >1 year: 24.8 - 81.5Performed By: #### FT4 #### [facility] [address] [place] [address] Dr. Ana Maria Dickens AUTO DIFFon [id number] #0.0 103/ulNormal0.0-0.1The [facility] SystemComment on above:Performed By: #### FT4 #### [facility] [address] [address] [address] Ana Maria SellersBasophils/100 WBC (Bld)0.8 %Normal0.2-2.0The [facility] Comment on above:Performed By: #### FT4 #### [facility] [address] [address] [address] Ana Maria Santos #0.2 103/ulNormal0.0-0.7The [facility] SystemComment on above: Performed By: #### FT4 #### [facility] [address] [place] [address] Dr. Ana Maria Walkerosinophils/100 WBC (Bld)3.3 %Normal0.9-7.0The [facility] Comment on above:Performed By: #### FT4 #### [facility] [address] [address] [address] Ana Maria Walkerrythrocyte distribution width (RBC) [Ratio]13.0 %Inxjjn39.0-15.0 The [facility] SystemComment on above:Performed By: #### FT4 #### [facility] [address] [place] [address] Dr. Ana Maria SellersHematocrit (Bld) [Volume fraction]37.8 %Esucio12.0-48.0The [facility] SystemComment on above:Performed By: #### FT4 #### [facility] [address] [address] [address] Ana Maria SellersHemoglobin (Bld) [Mass/Vol]12.5 g/zOWneghj23.0-16.0The [facility] SystemComment on above:Performed By: #### FT4 #### [facility] [address] [place] [address] Dr. An aMaria Vee #0.01 10e3/ulNormal0.00-0.03The [facility] SystemComment on above:Performed By: #### FT4 #### [facility] [address] [place] [address] Dr. Ana Maria Vee %0.2 %Normal0.0-0.5The [facility] SystemComment on above: Performed By: #### FT4 #### [facility] [address] [place] [address] Dr. Ana Maria Reynoso #1.4 103/ulNormal1.2-3.8The [facility] SystemComment on above:Performed By: #### FT4 #### [facility] [address] [place] [address] Dr. Ana Maria Elizondohocytes/100 WBC (Bld)27.1 %Okiptw73.5-60.0The [facility] SystemComment on above:Performed By: #### FT4 #### [facility] [address] [place] [address] Dr. Ana Maria Verduzco DIFF REQNONormalThe [facility] SystemComment on above: Performed By: #### FT4 #### [facility] [address] [place] [address] Dr. Ana Maria Farmer (RBC) [Entitic mass]29.8 odDfuood05.7-34.0The [facility] SystemComment on above:Performed By: #### FT4 #### [facility] [address] [place] [address] Dr. Ana Maria Thomason (RBC) [Mass/Vol]33.1 g/aGSlsmmz25.9-35.2The [facility] SystemComment on above:Performed By: #### FT4 #### [facility] [address] [place] [address] Dr. Ana Maria Granger (RBC) [Entitic vol]90.2 nNOtdtpl43.0-99.0[facility] HospitalComment on above:Performed By: #### FT4 #### [facility] [address] [place] [address] Dr. Ana Maria Hernandez #0.4 103/ulNormal0.3-0.8The [facility] SystemComment on above:Performed By: #### FT4 #### [facility] [address] [place] [address] Dr. Ana Maria Franciscoocytes/100 WBC (Bld)7.1 %Normal1.7-12.0The [facility] Comment on above:Performed By: #### FT4 #### [facility] [address] [place] [address] Dr. Ana Maria Ramos #3.1 103/ulNormal1.4-6.5The [facility] SystemComment on above:Performed By: #### FT4 #### [facility] [address] [place] [address] Dr. Ana Maria Zamanutrophils/100 WBC (Bld)61.5 %Pelpbo47.0-75.0The [facility] SystemComment on above:Performed By: #### FT4 #### [facility] [address] [place] [address] Dr. Ana aMria SellersPlatelet mean volume (Bld) [Entitic vol]10.4 fLNormal9.5-13.5The [facility] SystemComment on above:Performed By: #### FT4 #### [facility] [address] [place] [address] Dr. Ana Maria SaundersT237 103/fhBzrcri512-555Lss [facility] SystemComment on above: Performed By: #### FT4 #### [facility] [address] [place] [address] Dr. Ana Maria SellersRBC4.19 106/ulCritically low4.20-5.40The [facility] SystemComment on above:Performed By: #### FT4 #### [facility] [address] [place] [address] Dr. Ana Maria SellersWBC5.1 103/ulNormal4.0-11.0The [facility] SystemComment on above: Performed By: #### FT4 #### [facility] [address] [place] [address] Dr. Ana Maria Russell URINEon 43-69-5557OWYFYGK URINECulture Observations: LIGHT GROWTH OF MIXED GENITAL JOCY. NO POTENTIAL PATHOGENS SEEN.NormalThe [facility] SystemComment on above:Performed By: #### FT4 #### [facility] [address] [place] [address] Dr. Ana Maria Villatoro T4on 87-18-6205Qblu T4 [Mass/Vol]1.24 ng/dLNormal0.76-1.46 The [facility] SystemComment on above:Performed By: #### FT4 #### [facility] [address] [place] [address] Dr. Ana Maria BuckleyALBUMIN, RAND URon 26-00-2801oNLC<1.3Normal<=30.0The [facility] SystemComment on above:Performed By: #### FT4 #### [facility] [address] [place] [address] Dr. Ana Maria SellersPROF 14(COMP METB)on 07-99-0689Jwlglne [Mass/Vol]3.7 g/dLNormal 3.4-5.0The [facility] SystemComment on above:Performed By: #### CMP, TSH #### [facility] [address] [place] [address] Dr. Ana Maria SellersAlbumin/Globulin [Mass ratio]1.1 {ratio}NormalThe [facility] SystemComment on above:Performed By: #### CMP, TSH #### [facility] [address] [place] [address] Dr. Ana Maria Garcia [Catalytic activity/Vol]82 U/BSwaqtk61-138Uek [facility] SystemComment on above:Performed By: #### CMP, TSH #### [facility] [address] [place] [address] Dr. Ana Maria Damon [Catalytic activity/Vol]15 U/GOvgltg11-00Egi [facility] SystemComment on above:Performed By: #### CMP, TSH #### [facility] [address] [place] [address] Dr. Ana Maria Waldron gap [Moles/Vol]13.4 mmol/LNormalThe [facility] Comment on above:Performed By: #### CMP, TSH #### [facility] [address] [address] [address] Ana Maria SellersAST [Catalytic activity/Vol]14 U/LCritically nvu59-82Pfi [facility] SystemComment on above:Performed By: #### CMP, TSH #### [facility] [address] [address] [address] Ana Maria SellersBilirubin [Mass/Vol]0.6 mg/dLNormal0.2-1.0[facility] Comment on above:Performed By: #### CMP, TSH #### [facility] [address] [place] [address] Dr. Ana Maria SellersCalcium [Mass/Vol]9.0 mg/dLNormal8.5-10.1[facility] Comment on above:Performed By: #### CMP, TSH #### [facility] [address] [place] [address] Dr. Ana Maria SellersChloride [Moles/Vol]104 mmol/IGtvgfy61-351VovHocking Valley Community Hospital Comment on above:Performed By: #### CMP, TSH #### [facility] [address] [place] [address] Dr. Ana Maria SellersCO2 [Moles/Vol]27.7 mmol/FPaoaif54.0-32.0[facility] Comment on above:Performed By: #### CMP, TSH #### [facility] [address] [place] [address] Dr. Ana Maria SellersCreatinine [Mass/Vol]1.99 mg/dLCritically high0.55-1.02The [facility] SystemComment on above:Performed By: #### CMP, TSH #### [facility] [address] [place] [address] Dr. Ana Maria Tejeda-AF CYNDHYNQ12 mL/min/1.09q0Swcjmbipxy low>=60The [facility] SystemComment on above:Performed By: #### CMP, TSH #### [facility] [address] [place] [address] Dr. Yilan ChangEGFR-NON AF RXNENPMO01 mL/min/1.79k3Zpmbjlewst low>=60The [facility] SystemComment on above:Performed By: #### CMP, TSH #### [facility] [address] [place] [address] Dr. Ana Maria SellersGlobulin (S) [Mass/Vol]3.3 g/dLNormLima Memorial HospitalComment on above:Performed By: #### CMP, TSH #### [facility] [address] [address] [address] Ana Maria SellersGlucose [Mass/Vol]116 mg/dLCritically ksri02-144Yom [facility] SystemComment on above:Performed By: #### CMP, TSH #### [facility] [address] [place] [address] Dr. Ana Maria SellersPotassium [Moles/Vol]4.0 mmol/LNormal3.5-5.1The [facility] Comment on above:Performed By: #### CMP, TSH #### [facility] [address] [place] [address] Dr. Ana Maria SellersProtein [Mass/Vol]7.0 g/dLNormal6.4-8.2The [facility] Comment on above:Performed By: #### CMP, TSH #### [facility] [address] [place] [address] Dr. Ana Maria SellersSodium [Moles/Vol]141 mmol/GOkdmox965-548Bck [facility] Comment on above:Performed By: #### CMP, TSH #### [facility] [address] [place] [address] Dr. Ana Maria SellersUrea nitrogen [Mass/Vol]32.0 mg/dLCritically high7.0-18.0The [facility] SystemComment on above:Performed By: #### CMP, TSH #### [facility] [address] [place] [address] Dr. Ana Maria SellersUrea nitrogen/Creatinine [Mass ratio]16.8 mg/mgNoBucyrus Community HospitalComment on above:Performed By: #### CMP, TSH #### [facility] [address] [place] [address] Dr. Ana Maria Jarrett 64-52-0424CAV8.281 uIU/mLNormal0.358-3.740[facility] HospitalComment on above:Performed By: #### CMP, TSH #### [facility] [address] [place] [address] Dr. Ana Maria Vaca [facility] BELOWTriHealthComment on above: Result Comment: <0.34 UIU/ml HYPERTHYROID 0.34-5.60 UIU/ml EUTHYROID >5.60 UIU/ml HYPOTHYROIDPerformed By: #### CMP, TSH #### [facility] [address] [place] [address] Dr. Ana Maria RANGEL W/MICROSCOPICon 59-64-8846OVCWQUEOHTIY SEENNormalNONE SEENHocking Valley Community HospitalComment on above:Performed By: #### UAMIC #### [facility] [address] [place] [address] Dr. Ana Maria Garay Ql (U)NegativeNormalNEGATIVEHocking Valley Community Hospital Comment on above:Performed By: #### UAMIC #### [facility] [address] [place] [address] Dr. Ana Maria Gao SEENNormalNONE [facility]Comc.[facility] on above:Performed By: #### UAMIC #### [facility] [address] [place] [address] Dr. Ana Maria Verma (U)CLEARNormalCLEARHocking Valley Community HospitalComment on above: Performed By: #### UAMIC #### [facility] [address] [place] [address] Dr. Ana Maria Cuba (U)LT. YELLOWNormalYELLOWHocking Valley Community HospitalComment on above:Performed By: #### UAMIC #### [facility] [address] [place] [address] Dr. Ana Maria Barrios LM Nom (Urine sed)NONE SEENNormalNONE SEENHocking Valley Community HospitalComment on above:Performed By: #### UAMIC #### [facility] [address] [address] [address] Rodgers ChangEpithelial cells LM Ql (Urine sed)RARENormalNONE SEEN /RAREThe [facility] SystemComment on above:Performed By: #### UAMIC #### [facility] [address] [address] [address] Ana Maria SellersGlucose Ql (U)NegativeNormalNEGATIVEHocking Valley Community HospitalComment on above:Performed By: #### UAMIC #### [facility] [address] [place] [address] Dr. Ana Maria SellersHemoglobin Ql (U)NegativeNormalNEGATIVEOhiohealth Grady Memorial Hospital on above:Performed By: #### UAMIC #### [facility] [address] [place] [address] Dr. Ana Maria SellersKetones Ql (U)NegativeNormalNEGATIVEHocking Valley Community HospitalComment on above:Performed By: #### UAMIC #### [facility] [address] [place] [address] Dr. Ana Maria SellersLEUKOCYTESNegativeNormalNEGATIVEHocking Valley Community HospitalComment on above:Performed By: #### UAMIC #### [facility] [address] [place] [address] Dr. Ana Maria SellersMUCOUSNONE SEENNormalNONE SEENHocking Valley Community HospitalComment on above:Performed By: #### UAMIC #### [facility] [address] [place] [address] Dr. Ana Maria SellersNitrite Ql (U)NegativeNormalNEGATIVEHocking Valley Community HospitalComment on above:Performed By: #### UAMIC #### [facility] [address] [address] [address] Ana Maria SellerspH (U)5.5 [pH]Normal5-9[facility] HospitalComment on above: Performed By: #### UAMIC #### [facility] [address] [place] [address] Dr. Ana Maria SellersUqmkgMBQ8-2Qmyclh7-2Wdj [facility] SystemComment on above:Performed By: #### UAMIC #### [facility] [address] [address] [address] Ana Maria SellersSPEC GRAVITY1.913Oyewcb1.005-<=1.025The [facility] SystemComment on above:Performed By: #### UAMIC #### [facility] [address] [place] [address] Dr. Ana Maria Liang PROTEINNegativeNormalNEGATIVE/ TRACEThe [facility] Comment on above:Performed By: #### UAMIC #### [facility] [address] [place] [address] Dr. Ana Maria Almarazbilinogen Qn (U)0.2 {Chavez'U}/dLNormal0.2 - 1.0The [facility] SystemComment on above:Performed By: #### UAMIC #### [facility] [address] [place] [address] Dr. Ana Maria SellersWBC0-2AbnormalNONE SEENThe [facility] SystemComment on above: Performed By: #### UAMIC #### [facility] [address] [place] [address] Dr. Ana Maria Dickens AUTO DIFFon 18-55-6206FNOE #0.0 103/ulNormal0.0-0.1The [facility] SystemComment on above:Performed By: #### FT4 #### [facility] [address] [place] [address] Dr. Ana Maria SellersBasophils/100 WBC (Bld)0.6 %Normal0.2-2.0[facility] Comment on above:Performed By: #### FT4 #### [facility] [address] [place] [address] Dr. Ana Maria Santos #0.2 103/ulNormal0.0-0.7The [facility] on above: Performed By: #### FT4 #### [facility] [address] [place] [address] Dr. Ana Maria Walkerosinophils/100 WBC (Bld)4.6 %Normal0.9-7.0The [facility] Comment on above:Performed By: #### FT4 #### [facility] [address] [place] [address] Dr. Ana Maria Walkerrythrocyte distribution width (RBC) [Ratio]12.8 %Zvozde28.0-15.0 The [facility] SystemComment on above:Performed By: #### FT4 #### [facility] [address] [place] [address] Dr. Ana Maria SellersHematocrit (Bld) [Volume fraction]38.5 %Btpaco56.0-48.0The [facility] SystemComment on above:Performed By: #### FT4 #### [facility] [address] [place] [address] Dr. Ana Maria SellersHemoglobin (Bld) [Mass/Vol]12.7 g/tOMgjijc45.0-16.0The [facility] SystemComment on above:Performed By: #### FT4 #### [facility] [address] [place] [address] Dr. Ana Maria Vee #0.02 10e3/ulNormal0.00-0.03The [facility] SystemComment on above:Performed By: #### FT4 #### [facility] [address] [place] [address] Dr. Ana Maria Vee %0.4 %Normal0.0-0.5The [facility] SystemComment on above: Performed By: #### FT4 #### [facility] [address] [place] [address] Dr. Ana Maria ElizondoH #1.8 103/ulNormal1.2-3.8The [facility] SystemComment on above:Performed By: #### FT4 #### [facility] [address] [place] [address] Dr. Ana Maria Elizondohocytes/100 WBC (Bld)35.0 %Kmcsmv06.5-60.0The [facility] SystemComment on above:Performed By: #### FT4 #### [facility] [address] [place] [address] Dr. Ana Maria DaileyUAL DIFF REQNONormalThe [facility] SystemComment on above: Performed By: #### FT4 #### [facility] [address] [place] [address] Dr. Ana Maria Thomason (RBC) [Entitic mass]29.7 iuXwbdyw32.7-34.0The [facility] SystemComment on above:Performed By: #### FT4 #### [facility] [address] [place] [address] Dr. Ana Maria Thomason (RBC) [Mass/Vol]33.0 g/gDJflaev93.9-35.2The [facility] HospitalComment on above:Performed By: #### FT4 #### [facility] [address] [place] [address] Dr. Ana Maria Granger (RBC) [Entitic vol]90.2 jCWoesae81.0-99.0The [facility] SystemComment on above:Performed By: #### FT4 #### [facility] [address] [place] [address] Dr. Ana Maria Hernandez #0.4 103/ulNormal0.3-0.8The [facility] SystemComment on above:Performed By: #### FT4 #### [facility] [address] [place] [address] Dr. Ana Maria Franciscoocytes/100 WBC (Bld)8.0 %Normal1.7-12.0The [facility] Comment on above:Performed By: #### FT4 #### [facility] [address] [place] [address] Dr. Ana Maria Ramos #2.7 103/ulNormal1.4-6.5The [facility] SystemComment on above:Performed By: #### FT4 #### [facility] [address] [place] [address] Dr. Ana Maria Jacksonophils/100 WBC (Bld)51.4 %Pgfyfs47.0-75.0The [facility] SystemComment on above:Performed By: #### FT4 #### [facility] [address] [place] [address] Dr. Ana Maria Tuckerlet mean volume (Bld) [Entitic vol]10.6 fLNormal9.5-13.5The [facility] SystemComment on above:Performed By: #### FT4 #### [facility] Laboratory [address] [place] [address] Dr. Ana Maria SellersPLT216 103/afGbatvg649-591Swe [facility] on above: Performed By: #### FT4 #### [facility] [address] [address] [address] Ana Maria SellersRBC4.27 106/ulNormal4.20-5.40The [facility] on above:Performed By: #### FT4 #### [facility] [address] [place] [address] Dr. Ana Maria SellersWBC5.2 103/ulNormal4.0-11.0The [facility] SystemComment on above: Performed By: #### FT4 #### [facility] [address] [place] [address] Dr. Ana Maria YañezID PROFILEon [id number]-HDL RATIO NORMSEE [facility] HospitalComment on above:Result Comment: 3.3 - 4.4 LOW RISK 4.4 - 7.1 AVERAGE RISK 7.1 - 11.0 MODERATE RISK >11.0 HIGH RISKPerformed By: #### LIPID, CMP #### [facility] [address] [place] [address] Dr. Ana Maria SellersCholesterol [Mass/Vol]267 mg/dLCritically high<=200[facility] on above:Performed By: #### LIPID, CMP #### [facility] [address] [place] [address] Dr. Ana Maria SellersCholesterol in HDL [Mass/Vol]46 mg/dLTriHealth Comment on above:Performed By: #### LIPID, CMP #### [facility] [address] [place] [address] Dr. Ana Maria Chandleresterol in LDL [Mass/Vol]192.0 mg/dLNoBucyrus Community HospitalComment on above:Performed By: #### LIPID, CMP #### [facility] [address] [place] [address] Dr. Ana Maria SellersCholesterol.total/Cholesterol in HDL [Mass ratio]5.8 {ratio} NormalThe [facility] SystemComment on above:Performed By: #### LIPID, CMP #### [facility] [address] [place] [address] Dr. Ana Maria Webber NORMAL> or = 60 mg/dl - LOW CARDIOVASCULAR RISK <40 mg/dl - HIGH CARDIOVASCULAR RISKTriHealthComment on above:Performed By: #### LIPID, CMP #### [facility] [address] [place] [address] Dr. Ana Maria Matute CALC NORMALSEE BELOWTriHealthComment on above:Result Comment: <100 mg/dl OPTIMAL 100 - 129 mg/dl NEAR OR ABOVE OPTIMAL 130 - 159 mg/dl BORDERLINE HIGH 160 - 189 mg/dl HIGH >190 mg/dl VERY HIGH Performed By: #### LIPID, CMP #### [facility] [address] [place] [address] Dr. Ana Maria SellersTriglyceride [Mass/Vol]145 mg/dLNormal<=150The [facility] Comment on above:Performed By: #### LIPID, CMP #### [facility] [address] [place] [address] Dr. Ana Maria HectorLDL CALC29.0 mg/dLNoBucyrus Community HospitalComment on above: Performed By: #### LIPID, CMP #### [facility] [address] [place] [address] Dr. Ana Maria SellersPROF 14(COMP METB)on 06-91-1991Czquget [Mass/Vol]3.7 g/dLNormal 3.5-5.0[facility] HospitalComment on above:Performed By: #### LIPID, CMP #### [facility] [address] [place] [address] Dr. Ana Maria SellersAlbumin/Globulin [Mass ratio]1.1 {ratio}NormalThe [facility] SystemComment on above:Performed By: #### LIPID, CMP #### [facility] [address] [address] [address] Ana Maria Garcia [Catalytic activity/Vol]95 U/GUxuajz82-153Kzg [facility] SystemComment on above:Performed By: #### LIPID, CMP #### [facility] [address] [address] [address] Ana Maria Damon [Catalytic activity/Vol]14 U/LNormal9-52The [facility] Comment on above:Performed By: #### LIPID, CMP #### [facility] [address] [address] [address] Ana Maria Waldron gap [Moles/Vol]10.8 mmol/LNormalThe [facility] Comment on above:Performed By: #### LIPID, CMP #### [facility] [address] [address] [address] Ana Maria SellersAST [Catalytic activity/Vol]15 U/JAcuquj73-67Gmp [facility] SystemComment on above:Performed By: #### LIPID, CMP #### [facility] [address] [address] [address] Ana Maria SellersBilirubin [Mass/Vol]0.6 mg/dLNormal0.2-1.3The [facility] Comment on above:Performed By: #### LIPID, CMP #### [facility] [address] [address] [address] Ana Maria SellersCalcium [Mass/Vol]9.2 mg/dLNormal8.4-10.2The [facility] Comment on above:Performed By: #### LIPID, CMP #### [facility] [address] [address] [address] Ana Maria SellersChloride [Moles/Vol]103 mmol/NNttoeb86-638Ixs [facility] Comment on above:Performed By: #### LIPID, CMP #### [facility] [address] [address] [address] Ana Maria SellersCO2 [Moles/Vol]29.2 mmol/PSlursg36.0-30.0The [facility] Comment on above:Performed By: #### LIPID, CMP #### [facility] [address] [address] [address] Ana Maria SellersCreatinine [Mass/Vol]1.71 mg/dLCritically high0.52-1.04The [facility] SystemComment on above:Performed By: #### LIPID, CMP #### [facility] [address] [address] [address] Ana Maria WalkerGFR-AF TCLLCEAY09 mL/min/1.09z2Fhckeilwja low>=60The [facility] SystemComment on above:Performed By: #### LIPID, CMP #### [facility] [address] [address] [address] Ana Maria Tejeda-NON AF EMYVYDSE82 mL/min/1.21a3Zucoodkzoo low>=60The [facility] SystemComment on above:Performed By: #### LIPID, CMP #### [facility] [address] [place] [address] Dr. Ana Maria SellersGlobulin (S) [Mass/Vol]3.5 g/dLNormalThe [facility] SystemComment on above:Performed By: #### LIPID, CMP #### [facility] [address] [place] [address] Dr. Ana Maria SellersGlucose [Mass/Vol]100 mg/zXJbqeiq08-921KyeHocking Valley Community Hospital Comment on above:Performed By: #### LIPID, CMP #### [facility] [address] [place] [address] Dr. Ana Maria SellersPotassium [Moles/Vol]4.0 mmol/LNormal3.4-5.0The [facility] Comment on above:Performed By: #### LIPID, CMP #### [facility] [address] [place] [address] Dr. Ana Maria SellersProtein [Mass/Vol]7.2 g/dLNormal6.1-8.2The [facility] Comment on above:Performed By: #### LIPID, CMP #### [facility] [address] [place] [address] Dr. Ana Maria SellersSodium [Moles/Vol]139 mmol/QInzhln158-694Trw [facility] Comment on above:Performed By: #### LIPID, CMP #### [facility] [address] [address] [address] Ana Maria Pond nitrogen [Mass/Vol]37.0 mg/dLCritically high7.0-17.0[facility] HospitalComment on above:Performed By: #### LIPID, CMP #### [facility] [address] [place], [place] [address] Dr. Ana Maria Pond nitrogen/Creatinine [Mass ratio]21.6 mg/mgNormalThe [facility] SystemComment on above:Performed By: #### LIPID, CMP #### [facility] [address] [address] [address] Ana Maria Sellers Vital Signs Date TimeVital SignValuePerforming [id number] 12:25-0400 Diastolic blood abaciqff85 mm[Hg]David Pike MD Work Phone: [phone]10-27-2025 12:25-0400 Systolic blood mm[Hg]David Pike MD Work Phone: [phone])[address]10-27-2025 12:01-0400 Body .4 cmDavid Pike MD Work Phone: [phone])[address]10-27-2025 12:01-0400 Body mass index (BMI) [Ratio]29.4 kg/o0UxeacwDavid Pike MD Work Phone: [phone])[address]10-27-2025 12:01-0400 Body mkqatu52.26 kgDavid Pike MD Work Phone: [phone])70345 [address]10-27-2025 12:01-0400 Heart rate78 /minDavid Pike MD Work Phone: [phone])02345 [address]10-25-2025 07:19-0400 Body comzph168.4 Narciso Marshall DO Work Phone: [facility]10-25-2025 07:19-0400Body mass index (BMI) [Ratio]29.88 kg/o9VirwehodjTrinidad Marshall DO Work Phone: [phone])054-[facility] Center[facility]10-25-2025 07:19-0400Body otuzrc75.4 kgTrinidad Marshall DO Work Phone: [phone] [place], [place] [address]frandy [facility]10-25-2025 07:19-0400 Respiratory rate20 /minTrinidad Marshall DO Work Phone: [phone])[address]10-25-2025 07:19-8469NxV2% (BldA) [Mass fraction]92 %Trinidad Marshall DO Work Phone: [phone]10-25-2025 06:51-0400Diastolic blood evejylpo65 mm[Hg]Trinidad Marshall DO Work Phone: [phone]3BS[facility]10-25-2025 06:51-0400Heart rate64 /minTrinidad Marshall DO Work Phone: [phone])863-[facility]10-25-2025 06:51-0400Systolic blood kaevajmy432 mm[Hg]Trinidad Marshall DO Work Phone: [phone]-[facility]3Bfrandy [facility]10-24-2025 21:26-0400Body thsabtbyijp28.1 [degF]Trinidad Marshall DO Work Phone: [phone]-[facility]10-21-2025 10:15-0400Diastolic blood buohlyms89 mm[Hg]David Pike MD Work Phone: [facility]10-21-2025 10:15-0400 Heart rate76 /minDavid Pike MD Work Phone: [facility]10-21-2025 10:15-0400 Systolic blood mm[Hg]David Pike MD Work Phone: [facility]10-21-2025 10:08-0400 Body .4 cmDavid Pike MD Work Phone: [phone]10-21-2025 10:08-0400 Body mass index (BMI) [Ratio]29.7 kg/c0GqasjmDavid Pike MD Work Phone: [phone] [place], [place] [address]10-21-2025 10:08-0400 Body sbgvyb60.94 kgDavid Pike MD Work Phone: [phone] [place], [place] 505[address]9-09-2025 13:04-0400 Body apkbmv444.4 cmDavid Pike MD Work Phone: [phone] [place], [place] 505[address]9-09-2025 13:04-0400 Body mass index (BMI) [Ratio]29 kg/g3CdkbsxDavid Pike MD Work Phone: [phone])[address] [place], [place] 505[address]9-09-2025 13:04-0400 Body ohfncl45.58 kgDavid Pike MD Work Phone: [phone] [place], [place] 505[address]9-09-2025 13:04-0400 Diastolic blood hzfggofs59 mm[Hg]David Pike MD Work Phone: [phone] [place], [place] 505[address]9-09-2025 13:04-0400 Heart rate85 /minDavid Pike MD Work Phone: [phone] [place], [place] 505[address]9-09-2025 13:04-0400 Systolic blood runsqtpt514 mm[Hg]David Pike MD Work Phone: [phone])[address] [place], [place] 505[address]7-29-2025 10:35-0400 Body wgidvy415.4 cmDavid Pike MD Work Phone: [phone] [place], [place] 505[address]7-29-2025 10:35-0400 Body mass index (BMI) [Ratio]29.2 kg/m2JboqyaDavid Pike MD Work Phone: [phone])[address] [place], [place] 505[address]7-29-2025 10:35-0400 Body xbhbax17.03 kgDavid Pike MD Work Phone: [phone] [place], [place] 505[address]7-29-2025 10:35-0400 Diastolic blood upmkwxpr77 mm[Hg]David Pike MD Work Phone: [facility]07-29-2025 10:35-0400 Heart rate84 /Ranjan Pike MD Work Phone: [phone]07-29-2025 10:35-0400 Respiratory rate16 /Ranjan Pike MD Work Phone: [phone]59[facility]07-29-2025 10:35-0400 SaO2% (BldA) [Mass fraction]95 %David Pike MD Work Phone: [phone]72[facility]07-29-2025 10:35-0400 Systolic blood mm[Hg]David Pike MD Work Phone: [phone])[address]45 [address]06-12-2025 15:24-0400 Body cctevo235.86 cmDavid Pike MD Work Phone: [phone])[address]06-12-2025 15:24-0400 Body mass index (BMI) [Ratio]30.9 kg/q8CbllcgDavid Pike MD Work Phone: [phone])64945 [address]06-12-2025 15:24-0400 Body .39 kgDavid Pike MD Work Phone: [phone]56[facility]06-12-2025 15:24-0400 Diastolic blood tuedyoqm37 mm[Hg]David Pike MD Work Phone: [phone]38[facility]06-12-2025 15:24-0400 Heart rate78 /Ranjan Pike MD Work Phone: [phone])88545 [address]06-12-2025 15:24-0400 SaO2% (BldA) [Mass fraction]95 %David Pike MD Work Phone: [phone]65[facility]06-12-2025 15:24-0400 Systolic blood codcmtvj092 mm[Hg]David Pike MD Work Phone: [phone] [address]02-06-2025 10:14-0500 Body .86 cmDavid Pike MD Work Phone: [facility]02-06-2025 10:14-0500 Body mass index (BMI) [Ratio]30.3 kg/d2BrkzyyDavid Pike MD Work Phone: [facility]02-06-2025 10:14-0500 Body hcwpelgybig36 [degF]David Pike MD Work Phone: [phone]02-06-2025 10:14-0500 Body nzamcv70.15 kgDavid Pike MD Work Phone: [phone]02-06-2025 10:14-0500 Diastolic blood dbzvmdan03 mm[Hg]David Pike MD Work Phone: [phone]02-06-2025 10:14-0500 Heart rate90 /minDavid Pike MD Work Phone: [phone]02-06-2025 10:14-0500 Systolic blood jsqqmtom499 mm[Hg]David Pike MD Work Phone: [phone]02-05-2025 09:14-0500 Body mass index (BMI) [Ratio]29.12 kg/i0Luxazhsrdbu Karen DO Work Phone: [facility]Fdwvtxxuei24-44-7277 09:14-0500Body .77 kgChristopher Karen DO Work Phone: [facility]'sFubxpoolxe50-03-5979 09:14-0500Diastolic blood uhtpnkdw87 mm[Hg]Christopher Karen DO Work Phone: [facility]'sAluzjtjmtv06-28-6962 09:14-0500Heart rate94 /min Christopher Karen DO Work Phone: [facility]'sYqpdodeibb25-94-5469 09:14-5848NtR8% (BldA) [Mass fraction]95 %Christopher Karen DO Work Phone: [facility] John'sTihculkqiq21-59-3040 09:14-0500Systolic blood jsahsagy630 mm[Hg]Christopher Karen DO Work Phone: [facility]'sSzabpvawpd52-16-1287 13:05-0500Body hxtzme723.86 cmDavid Pike MD Work Phone: [phone] [place], [place] 550[address]12-06-2024 13:05-0500 Body mass index (BMI) [Ratio]30.1 kg/b5EpzftwDavid Pike MD Work Phone: [phone] [place], [place] 5507112-06-2024 13:05-0500 Body mfpvia84.58 kgDavid Pike MD Work Phone: [phone])02545 [address]12-06-2024 13:05-0500 Diastolic blood njeaduce31 mm[Hg]David Pike MD Work Phone: [phone])[address]12-06-2024 13:05-0500 Heart rate70 /minDavid Pike MD Work Phone: [phone])43045 [address]12-06-2024 13:05-0500 Systolic blood cmguspvo353 mm[Hg]David Pike MD Work Phone: [phone]09-17-2024 09:07-0400 Body ukswmm927.86 cmMD David Pike Work Phone: [phone])[address]09-17-2024 09:07-0400 Body mass index (BMI) [Ratio]30.1 kg/m2MD David Pike Work Phone: [phone] [place], [place] [address]109-17-2024 09:07-0400 Body kfpdiekzbqs48.8 [degF]MD David Pike Work Phone: 1(864)27045 [address]09-17-2024 09:07-0400 Body devzku49.58 kgMD David Pike Work Phone: [phone])[address]145 [address]09-17-2024 09:07-0400 Diastolic blood upyekrxv20 mm[Hg]MD David Pike Work Phone: [phone])[address]09-17-2024 09:07-0400 Heart rate58 /minMD David Pike Work Phone: [facility]09-17-2024 09:07-0400 Respiratory rate16 /minMD David Pike Work Phone: [phone]09-17-2024 09:07-0400 SaO2% (BldA) [Mass fraction]97 %MD David Pike Work Phone: [facility]09-17-2024 09:07-0400 Systolic blood elpppztm903 mm[Hg]MD David Pike Work Phone: [facility]09-04-2024 10:03-0400 Body uzdnwu193.86 cmTrihealth [facility]cc[facility]09-04-2024 10:03-0400Body mass index (BMI) [Ratio]29.9 kg/u4XiryqloxiTrihealth Mccullough-[facility]09-04-2024 10:03-0400Body iignza89.13 kgTrihealth Mccullough-[facility]09-04-2024 10:03-0400Diastolic blood lgghbwse22 mm[Hg][facility] 03-16-2024 10:03-0400Heart rate76 /minTrihealth Mccull[facility] 03-16-2024 10:03-0400Systolic blood mm[Hg][facility]03-07-2024 09:18-0500Body .86 cmMD David Pike Work Phone: [phone]03-07-2024 09:18-0500 Body mass index (BMI) [Ratio]30.1 kg/m2MD David Pike Work Phone: [phone]03-07-2024 09:18-0500 Body lacbxqpnhvv39.1 [degF]MD David Pike Work Phone: [phone]03-07-2024 09:18-0500 Body ijduzq32.58 kgMD David Pike Work Phone: [facility]03-07-2024 09:18-0500 Diastolic blood ylvicaxm74 mm[Hg]MD David Pike Work Phone: [phone]03-07-2024 09:18-0500 Heart rate70 /minMD David Pike Work Phone: [facility]03-07-2024 09:18-0500 Respiratory rate16 /minMD David Pike Work Phone: [phone]03-07-2024 09:18-0500 SaO2% (BldA) [Mass fraction]97 %MD David Pike Work Phone: [phone]03-07-2024 09:18-0500 Systolic blood ndxrjuvs899 mm[Hg]MD David Pike Work Phone: [phone]02-23-2024 08:59-0500 Body .86 cmTrihealth [facility]cc[facility]02-23-2024 08:59-0500Body mass index (BMI) [Ratio]30.1 kg/z0TcachdgtmTrihealth Mccullough-[facility]02-23-2024 08:59-0500Body tolzgm38.58 kgTrihealth Mccullough-[facility]02-23-2024 08:59-0500Diastolic blood kqwsaqln45 mm[Hg][facility] 09-04-2023 08:59-0500Heart rate77 /minTrihealth [facility]ccull[facility] 09-04-2023 08:59-0500Systolic blood ewydbpng348 mm[Hg][facility]02-09-2024 11:00-0500Body mwhtid134.86 cmDavid Pike Other [employer] Other 02-09-2024 11:00-0500Body mass index (BMI) [Ratio] 30.13 kg/l5ZoyteaDavid Pike Other [employer] Other 02-09-2024 11:00-0500Body lsyxap15.68 kgDavid Pike Other [employer] Other 02-09-2024 11:00-0500Diastolic blood zyxjkkzh64 mm[Hg] David Pike Other [employer] Other 02-09-2024 11:00-0500Respiratory rate16 /minDavid Pike Other [employer] Other 02-09-2024 11:00-0500Systolic blood jfezadih865 mm[Hg] David Pike Other [employer] Other 10-25-2023 09:15-0400Body arsyju025.86 cmDavid Pike Other [employer] Other 10-25-2023 09:15-0400Body mass index (BMI) [Ratio] 29.69 kg/w5HidkvtDavid Pike Other [employer] Other 10-25-2023 09:15-0400Body cwawdpyokav12.3 [degF]David Pike Other [employer] Other 10-25-2023 09:15-0400Body merocs92.68 kgDavid Pike Other [employer] Other 10-25-2023 09:15-0400Diastolic blood qdyjwqof43 mm[Hg] David Pike Other [employer] Other 10-25-2023 09:15-0400Systolic blood qhipihil972 mm[Hg] David Pike Other [employer] Other 10-06-2023 11:15-0400Body tmgtle731.86 cmDavid Pike Other [employer] Other 10-06-2023 11:15-0400Body mass index (BMI) [Ratio] 29.89 kg/s1Lagrrv Glendy Other [employer] Other 10-06-2023 11:15-0400Body hpedyw97.13 kgDavid Glendy Other [employer] Other 10-06-2023 11:15-0400Diastolic blood vqblffex19 mm[Hg] David Pike Other [employer] Other 10-06-2023 11:15-0400Systolic blood axnfnmdq905 mm[Hg] David Pike Other [employer] Other 09-28-2023 14:30-0400Body iascki294.86 cmDavid Glendy Other [employer] Other 09-28-2023 14:30-0400Body mass index (BMI) [Ratio] 30.29 kg/v0Imlgoe Glendy Other [employer] Other 09-28-2023 14:30-0400Body uobwxq02.04 kgDavid Glendy Other [employer] Other 09-28-2023 14:30-0400Diastolic blood cmguyrva95 mm[Hg] David Pike Other [employer] Other 09-28-2023 14:30-0400Systolic blood rezwtgvv730 mm[Hg] David Pike Other [employer] Other 09-06-2023 09:20-0400Body rrnvet058.86 cmAbdul Emeka Other [employer] Other 09-06-2023 09:20-0400Body mass index (BMI) [Ratio] 30.29 kg/m1Twugm Emeka Other [employer] Other 09-06-2023 09:20-0400Body eepmvzbhwbw70 [degF]Deepa Emeka Other [employer] Other 09-06-2023 09:20-0400Body zofers77.04 kgAbdul Emeka Other [employer] Other 09-06-2023 09:20-0400Diastolic blood mm[Hg] Deepa Emeka Other [employer] Other 09-06-2023 09:20-0400Respiratory rate18 /minAbdul Emeka Other [employer] Other 09-06-2023 09:20-6405AfR8% (BldA) [Mass fraction]96 % Deepa Emeka Other [employer] Other 09-06-2023 09:20-0400Systolic blood mm[Hg] Deepa Emeka Other [employer] Other 07-26-2023 10:15-0400Body dxyqdt469.86 cmDavid Pike Other [employer] Other 07-26-2023 10:15-0400Body mass index (BMI) [Ratio] 30.49 kg/n1XwjxlfDavid Pike Other [employer] Other 07-26-2023 10:15-0400Body mpnahj26.49 kgDavid Pike Other [employer] Other 07-26-2023 10:15-0400Diastolic blood voysxbyv70 mm[Hg] David Pike Other [employer] Other 07-26-2023 10:15-0400Systolic blood isdhdcsm304 mm[Hg] David Pike Other [employer] Other 04-06-2023 10:30-0400Body otktch647.86 cmJeannineshaileshamara Pike Other [employer] Other 04-06-2023 10:30-0400Body mass index (BMI) [Ratio]30.9 kg/s6WoxwhrDavid Pike Other [employer] Other 04-06-2023 10:30-0400Body .4 kgDavid Pike Other [employer] Other 04-06-2023 10:30-0400Diastolic blood mm[Hg] David Pike Other [employer] Other 04-06-2023 10:30-0376NxC8% (BldA) [Mass fraction]99 % David Pike Other [employer] Other 04-06-2023 10:30-0400Systolic blood tbspvnyt462 mm[Hg] David Pike Other [employer] Other 03-22-2023 12:20-0400Body xeufep960.4 cmAbdul Emeka Other [employer] Other 03-22-2023 12:20-0400Body mass index (BMI) [Ratio] 30.19 kg/t3Wsarz Emeka Other [employer] Other 03-22-2023 12:20-0400Body qtkdga20.13 kgAbdul Emeka Other [employer] Other 03-22-2023 12:20-0400Diastolic blood uohbmcjl41 mm[Hg] Deepa Emeka Other [employer] Other 03-22-2023 12:20-0400Respiratory rate18 /minAbdul Emeka Other [employer] Other 03-22-2023 12:20-0154ZeN6% (BldA) [Mass fraction]96 % Deepa Emeka Other [employer] Other 03-22-2023 12:20-0400Systolic blood qlkolokd359 mm[Hg] Deepa Emeka Other [employer] Other 03-14-2023 10:27-0400Blood Pressure LocationJENNIFER CHELY [facility]03-14-2023 10:27-0400Diastolic blood mm[Hg]SHONNA CHELY [facility]03-14-2023 10:27-0400Heart rate70 /minJENNIFER CHELY [facility]03-14-2023 10:27-0400Systolic blood egmzidsc379 mm[Hg]SHONNA CHELY [facility]03-03-2023 09:30-0500Body yxkavn117.4 cmDavid Pike Other [employer] Other 03-03-2023 09:30-0500Body mass index (BMI) [Ratio] 29.96 kg/k8CqdqlmDavid Pike Other [employer] Other 03-03-2023 09:30-0500Body gtuhma63.58 kgDavid Pike Other [employer] Other 03-03-2023 09:30-0500Diastolic blood wgcmaesh85 mm[Hg] David Pike Other [employer] Other 03-03-2023 09:30-9822LuL9% (BldA) [Mass fraction]94 % David Pike Other [employer] Other 03-03-2023 09:30-0500Systolic blood sgaoygmt463 mm[Hg] David Pike Other [employer] Other 03-08-2022 16:40-0500Body wohjay078.4 cmAbdul Emeka Other [employer] Other 03-08-2022 16:40-0500Body mass index (BMI) [Ratio] 30.15 kg/y6Undws Emeka Other [employer] Other 03-08-2022 16:40-0500Body chsagqdpeqe03.6 [degF]Deepa Emeka Other [employer] Other 03-08-2022 16:40-0500Body xbywgq44.04 kgAbdul Emeka Other [employer] Other 03-08-2022 16:40-0500Diastolic blood qqufokno90 mm[Hg] Deepa Emeka Other [employer] Other 03-08-2022 16:40-0500Respiratory rate18 /minAbdul Emeka Other [facility] [employer] Other 03-08-2022 16:40-3516AiT5% (BldA) [Mass fraction]96 % Deepa Emeka Other [facility] [employer] Other 03-08-2022 16:40-0500Systolic blood mm[Hg] Deepa Emeka Other [facility] [employer] Other Encounters Encounter DateEncounter [facility] ProviderFacilityStart: 05-08-2025 End: [id number] E Braun MD Work Phone: -[facility] 05[facility]2025 End: 70-11-8728Svfrxmf encounter procedureDavid Pike MD-[facility] Work Phone: Start: 05-05-2025 End: 22-00-7360lnmctydibzADZTJX BRAUNDelaware County Hospitaltart: 05-05-2025 End: 12-65-2365Jzuivpzhdr and management of inpatientChrisbrittany Marshall DO Work Phone: mthz [facility] MED SURGComment on above:Congestive heart failure, unspecified HF chronicity, unspecified heart failure type (HCC) (Primary Dx); Elevated troponin; DizzinessStart: 05-02-2025 End: 75-98-1803umdzywlcmpRghydu E Braun MD Work Phone: [facility] 05-02-2025 End: 85-49-8232Uihafgl encounter procedureDavid Pike MD-[facility] Work Phone: Start: 04-21-2025 End: 80-14-5844Scxbzkcp ReferredDavid Pike MD-[facility] Work Phone: Start: 04-21-2025 End: 20-32-3798zjlqmetnqlBsmxio E Braun MD Work Phone: [facility] Work Phone: Start: 04-21-2025 End: 59-82-6858Sqbmwka encounter procedureShonna Villeda APRN [facility] Work Phone: Start: 04-19-2025 End: 32-49-9401xwustwnnzzTyfoct E Braun MD Work Phone: [facility] Work Phone: Start: 04-19-2025 End: 38-73-2674Caugfil encounter procedureThomas Robb [facility] Work Phone: Start: 04-18-2025 End: 12-52-0312edvpgpytvnIkdsvd E Braun MD Work Phone: [facility] Work Phone: Start: 04-18-2025 End: 72-57-3104Ctcxeyl encounter procedureThomas Robb [facility] Work Phone: Start: 67-83-9201Bolhczf encounter Chelsi Pike MD Work Phone: [facility] 03-21-2025 End: 51-20-6711iryfgiblxbPcdxzt E Braun MD Work Phone: [facility] Work Phone: Start: 03-21-2025 End: 13-09-2772Govmpoo encounter Chelsi Pike MD-[facility] Work Phone: Start: 30-21-4114Pcc-patient / Non-visitCatheraldo Loaiza CMA-[facility] Work Phone: Start: 03-14-2025 End: 89-53-5920gbsbpsedthYqfoyn E Braun MD Work Phone: [facility] Work Phone: Start: 03-14-2025 End: 77-46-8207Twcczdt encounter procedureDavid Pike MD-[facility] Work Phone: Start: 51-04-4149Evo-patient / Non-visitDavid Pike MD-[facility] Work Phone: Start: 81-23-1069pcluxaruhePcoaxho J Veterans Health Administrationcility: [facility]tart: 02-09-2025 End: 06-98-0496Tprhtpky ReferredDavid Pike MD-[facility] Work Phone: Start: 02-09-2025 End: 38-13-2614skpvbzlugiQyhmut E Braun MD Work Phone: [facility] Work Phone: Start: 02-09-2025 End: 45-57-4061Hwbjwvf encounter procedureDavid Pike MD-[facility] Work Phone: Start: 02-07-2025 End: 90-10-3542saoiounipqLuqxjq E Braun MD Work Phone: [facility] Work Phone: Start: 02-07-2025 End: 87-59-4121Kcxqzxs encounter Sofi Haynes APRN-FNP-C-[facility] Work Phone: Start: 01-24-2025 End: 19-92-6299Moaajiu encounter procedureDavid Pike MD-[facility] Work Phone: Start: 01-24-2025 End: 32-30-0016wwtzjnylqzBwxdrd E Braun MD Work Phone: [facility] Work Phone: Start: 01-24-2025 End: 20-81-9946Nmbnvmpq ReferredDavid Pike MD-Lab [facility] Work Phone: Start: 12-29-2024 End: 74-16-3463Zqrbjog encounter procedureChhuy Weiner DO-MRI [facility] Work Phone: Start: 12-29-2024 End: 74-60-4801ylztefngvuMnsqny E BraunFacility:[facility]tart: 12-22-2024 End: 84-73-9843Perfpgc encounter procedureDeepa Hendrickson MD-[facility] Work Phone: Start: 11-28-2024 End: 35-69-8396Bivkdcl encounter procedureDeepa Hendrickson MD-Lab [facility] Work Phone: Start: 11-28-2024 End: 21-90-0682ziujfqitzpOnbftl E BraunFacility:[facility] Hospitaltart: 08-18-2024 End: 69-43-0824qkredimgmsEicdqy E Braun MD Work Phone: [facility] Work Phone: Start: 08-18-2024 End: 96-99-7881Ewnogfa encounter procedureDavid Pike MD Work Phone: [facility] Work Phone: Start: 08-17-2024 End: 88-02-7341Zqtkxy flowsheetChristopher Jones DO Work Phone: aNA BELLEVUEStart: 08-17-2024 End: 86-22-5252Oaujyv flowsheetChristopher Jones DO Work Phone: aNA BELLEVUEStart: 08-17-2024 End: 20-57-3777Kgbkjyy encounter procedureDavid Pike MD Work Phone: [facility] [place] Work Phone: Start: 08-17-2024 End: 82-25-5346ayxqnvdhfuKpirfd E Braun MD Work Phone: [facility] Work Phone: Start: 08-17-2024 End: 88-26-9785Osxafw outpatient new 45 minutesChristopher Karen DO Work Phone: ana BELLEVUEComment on above:Mild late onset Alzheimer's dementia, unspecified whether behavioral, psychotic, or mood disturbance or anxiety (CMS/HCC) (Primary Dx)Start: 08-17-2024 End: 78-33-1296pekzfswcdcIRFZHUERZOB HASSETTNot AvailableStart: 06-17-2024 End: 85-54-2949Qzdgddo encounter procedureDavid Pike MD Work Phone: [facility] Work Phone: Start: 65-81-5874Phf-patient / Non-visitDavid Pike MD Work Phone: [facility] Work Phone: Start: 03-29-2024 End: 15-94-2519qhjfxyygfuKT Marcia E Braun Work Phone: [facility] Work Phone: Start: 03-29-2024 End: 06-11-6877Iniirsa encounter procedureMD David Pike Work Phone: [facility] Nephrology Krystin Work Phone: Start: 03-28-2024 End: 43-89-7989vcsyenqkoaCX Marcia E Braun Work Phone: [facility] Work Phone: Start: 03-28-2024 End: 97-15-8595Wdikmvr encounter procedureMD David Pike Work Phone: [facility] [place] Work Phone: Start: 03-18-2024 End: 06-62-5946tpxdynexqkTJ David Pike Work Phone: [facility] Work Phone: Start: 03-18-2024 End: 62-10-0407Rwrougv encounter procedureMD David Pike Work Phone: [facility] [place] Work Phone: Start: 03-16-2024 End: 58-89-0102ksuecziazvPphstasgiChildren's Hospital of [facility] Work Phone: Start: 03-16-2024 End: 33-44-7716Uofjrhn encounter procedureFircarilion [facility] Work Phone: Start: 03-11-2024 End: 72-33-4458liymkhwgxcWsadhqpulChildren's Hospital of [facility] Work Phone: Start: 03-11-2024 End: 00-39-2554Xaeiwtp encounter procedureFirwellpinits Physician Group-[facility] Work Phone: Start: 10-09-2023 End: 83-69-6643gsyeizwgwsJD David Pike Work Phone: [facility] Work Phone: Start: 10-09-2023 End: 39-18-3687Meqnzgc encounter procedureMD David Pike Work Phone: [facility] Work Phone: Start: 10-05-2023 End: 53-70-4810ctzamotbgkKG Marcia E Braun Work Phone: [facility] Work Phone: Start: 10-05-2023 End: 47-92-2843Nyvpvhn encounter procedureMD David Pike Work Phone: [facility] Work Phone: Start: 10-04-2023 End: 99-85-2966lvnumplhlgMFETFAR G TESMONDNot AvailableStart: 09-17-2023 End: 06-15-4172Zldyaqp encounter procedureMD David Pike Work Phone: [facility] Work Phone: Start: 09-07-2023 End: 04-30-8862Uedcryz encounter procedureMD David Pike Work Phone: [facility] [place] Work Phone: Start: 09-04-2023 End: 13-27-8186spbhfvfqweYklwjreiuChildren's Hospital of [facility] Work Phone: Start: 09-04-2023 End: 85-67-9244Adhdabb encounter procedureNov[facility] Work Phone: Start: 08-21-2023 End: 69-56-4219mcwrkmncmgTtymvq Braun Other [employer] Other Start: 76-99-3026Illyrjy encounter procedureMarcia [facility]art: 06-01-2023 End: 32-71-2525wargdhsecdEnynmk Pike Other [employer] Other Start: 41-19-2621Vdansygwz encounterMarcia [facility]ertart: 05-11-2023 End: 75-53-8179duxolshxifPwpiel Pike Other [employer] Other Start: 41-91-6458Rsaytfmjz encounterMarcia [facility]ertart: 05-06-2023 End: 88-04-6016fmogmjrqxqLcfdfw Pike Other [employer] Other Start: 33-72-0684Qeuxyg outpatient visit 15 minutes [facility]Start: 04-17-2023 End: 86-87-1269urggzxapxkUkdsxz Braun Other [facility] Other Start: 70-38-7856Zkrlxn outpatient visit 15 minutes [facility] ClinicStart: 04-09-2023 End: 37-44-8803xmpekzdtxxUjuesn Braun Other [facility] Other Start: 27-17-0715Rrrvgj outpatient visit 15 minutes David [facility] ClinicStart: 03-18-2023 End: 10-63-8072nhxwoskmpdBjkrc Emeka Other [facility] Other Start: 00-37-2986Xtnrsc outpatient visit 25 minutes Deepa QadirFPG NephrologyStart: 03-17-2023 End: 05-76-8835zwbtttstwuXP David Willam Glendy Work Phone: [facility] Work Phone: Start: 03-17-2023 End: 72-69-9807Neydycx encounter procedureMD David Glendy Work Phone: [facility] [place] Work Phone: Start: 02-23-2023 End: 36-07-6950gllyzesziaZqzdre Braun Other [facility] Other Start: 64-75-7049Yspkjns evaluation of patient and reportDavid Edwards [facility] ClinicStart: 02-04-2023 End: 57-63-2729girijqzjdyObufdm Braun Other [facility] Other Start: 83-02-9152Vxbtjy outpatient visit 25 minutes David [facility] ClinicStart: 11-12-2022 End: 34-40-4769ctngxbluddLbtvjl Pike Other [employer] Other Start: 92-48-0037Mipfgzfvq encounterMarjayde [facility] ClinicStart: 11-11-2022 End: 07-43-2423szudvhsrphLjfpkk Pike Other [facility] Other Start: 95-68-7991Xfugcqtlt encounterMarciamara [facility] ClinicStart: 10-16-2022 End: 49-42-8079xrnhcsmcweMuwhiv Pike Other [facility] Other Start: 08-40-4483Apwhga outpatient visit 15 minutes David [facility] ClinicStart: 10-02-2022 End: 23-94-3951wtbhkavmfoPgheno Pike Other [facility] Other Start: 26-12-9246Qqvcvdqpm encounterMarjayde [facility] ClinicStart: 10-01-2022 End: 77-71-7943fjptknlddxUrqty Emeka Other [facility] Other Start: 01-34-6586Zfvdkh outpatient visit 25 minutes Deepa QadirFPG NephrologyStart: 09-26-2022 End: 41-50-3878mzywfoayaaXW David Pike Work Phone: [facility] Work Phone: Start: 09-26-2022 End: 56-22-5256Hzsyuli encounter procedureMD David Pike Work Phone: [facility] Work Phone: Start: 09-23-2022 End: 00-89-5203bilrcprkicFX David Pike Work Phone: [facility] Work Phone: Start: 09-23-2022 End: 72-21-3329Sdflrls encounter procedureMD David Pike Work Phone: [facility] [place] Work Phone: Start: 09-23-2022 End: 81-99-7788pnaaegcfxqFXXACCRT E PERRYFacility:FTMCStart: 09-23-2022 End: 45-68-8439rgiijkjmhaUZFQLNES E PERRYFacility:EU BellevueStart: 09-23-2022 End: 30-81-4042Wuj Drop offJENNIFER E CHELY [facility] Start: 09-23-2022 End: 36-59-9236Siqguyb encounter procedureJENNIFER E CHELY [facility] start: 09-12-2022 End: 33-36-4471xliecgfigaOfbmyn Braun Other [employer] Other Start: 32-57-9008Dcjgpd outpatient visit 25 minutes David Silva [facility]villetart: 03-19-2022 End: 02-46-3228Vbselmj encounter procedure David Pike Work Phone: [facility] CampusStart: 03-18-2022 End: 24-15-4775akpqbwdkomUL MARCIA E BRAUNFacility:G9Cyosy: 42-36-9780Blxlx health examinationDavid Pike Other [facility] Other Start: 03-05-2022 End: 71-32-4949kyycxpljocGQ MARCIA E BRAUNFacility:M7Gnawu: 02-20-2022 End: 69-38-1916aijtxiiwcbAJ MARCIA E BRAUNFacility:I2Xmfyb: 02-04-2022 End: 71-84-1044awjdwelhynZB MARCIA E BRAUNFacility:H0Euzue: 12-11-2021 End: 45-01-6449oybhdwwehiSQ MARCIA E BRAUNFacility:E1Fhwrx: 09-17-2021 End: 91-54-7273ajqdoakjhdFwdaf Emeka Other [facility] Other Start: 98-10-6462Vtskjv outpatient visit 15 minutes Deepa QadirFPG NephrologyStart: 09-16-2021 End: 85-96-5058hujfuepmioAC MARCIA E BRAUNFacility:G6Fgrdc: 05-08-2021 End: 74-68-7276wghgbstklkRAQNML ELI ROSSFacility:F7Brept: 10-19-2018 End: 34-30-9231Tbbiuax encounter procedureDEFAULT PHYSICIANFacility:[facility]tart: 10-18-2018 End: 05-20-6885Exgrxin encounter procedureDEFAULT PHYSICIANFacility:[facility] Procedures DateProcedureProcedure DetailPerforming ClinicianStart: 84-83-2892Fcyidpblhgol pulse oximetryMark Wil James MD Work Phone: Start: 52-54-6218Tffzq of troponin quantitative Trinidad Marshall DO Work Phone: Start: 94-19-5903Ie thorax w/contrast material Trinidad Marshall DO Work Phone: Start: 05-05-2025 End: 65-16-3878Wt head/brain w/o contrast materialChtosin Marshall DO Work Phone: Start: 59-23-8945Pxcxbvflva microscopic onlyTrinidad Marshall DO Work Phone: Start: 05-18-3580Hrrml dip stick/tablet rgnt auto w/o microscopyChtosin Marshall DO Work Phone: Start: 83-07-6326Kjj routine ecg w/least 12 lds w/i&r Trinidad Marshall DO Work Phone: Start: 64-17-2204Wpzoa metabolic panel calcium total Trinidad Marshall DO Work Phone: Start: 75-09-6381Etrsr Donna Pike MD Work Phone: Start: 04-95-7459Fsmbo Donna Pike MD Work Phone: Start: 02-01-8966Bmlfl Donna Pike MD Work Phone: Start: 97-00-0093WZI of headDavid Pike MD Work Phone: Start: 58-56-4470Tfyuxqbeo mammography of bilateral breastsMD David Pike Work Phone: Start: 54-32-7106Rpnvededn mammographyMD David Pike Work Phone: Start: 13-09-9860Sovmknxckhqobug of right breastMD David Glendy Work Phone: Start: 96-00-9114Yzcfbgsdrhaudexnq with dilation of urethral strictureJENNIFER CHELY Start: 33-58-8977QdgmtvcssgYRKCNUBS CHELY Start: 20-90-5716mkjg cataract with iolJENNIFER CHELY Start: 44-88-6292DyhwzsebfkODRNSAIL CHELY Cataract (morphologic abnormality)SHONNA CHELY Cesarean sectionJENNIFER CHELY Screening for malignant neoplasm of breastDavid Pike Other Plan of Treatment DateCare ActivityDetailAuthorStart: 67-20-5824Ilfdatkc identified in Urine by CultureUrine [facility] Systemtart: 69-96-8315Rswvoli referralChildren[facility] Work Phone: Start: 71-05-3363JCDOI-19 Vaccine ( season) COVID-19 Vaccine ( season)[facility]: 02-10-2025 Influenza vaccinationFlu vaccine (#1)[facility] Systemart: 02-09-2025 Bacteria identified in Urine by CultureUrine [facility] Systemtart: 68-51-2125Ztlzz [facility]tart: 31-08-2688Hlmokbnu identified in Urine by CultureUrine [facility] Systemtart: 09-07-1512Iswwi [facility] Start: 08-17-2024 End: 30-11-1532Usjqgcish (Vitamin B12) [Mass/volume] in Serum or PlasmaVitamin B12 Lab Routine Mild late onset Alzheimer's dementia, unspecified whether behavioral, psychotic, or mood disturbance or anxiety (CMS/HCC) Expected: 08/17/2024 (Approximate), Expires: 08/17/2025[facility] Work Phone: comment on above:Expected: 08/17/2024 (Approximate), Expires: 08/17/2025Start: 08-17-2024 End: 28-98-7089Cddrhwbwzx [Mass/volume] in Serum or PlasmaCreatinine, Serum Lab Routine Mild late onset Alzheimer's dementia, unspecified whether behavioral, psychotic, or mood disturbance or anxiety (CMS/HCC) Expected: 08/17/2024 (Approximate), Expires: 08/17/2025[facility] HealthcareComment on above:Expected: 08/17/2024 (Approximate), Expires: 08/17/2025Start: 08-17-2024 End: 21-54-1911ZB Brain WO and W contrast IVMR brain w and wo contrast routine Imaging Routine Mild late onset Alzheimer's dementia, unspecified whether behavioral, psychotic, or mood disturbance or anxiety (CMS/HCC) Expected: 08/17/2024, Expires: 08/17/2025[facility] HealthcareComment on above:Expected: 08/17/2024, Expires: 08/17/2025Start: 08-17-2024 End: 55-66-6053Ormiawikbga [Units/volume] in Serum or PlasmaTSH Lab Routine Mild late onset Alzheimer's dementia, unspecified whether behavioral, psychotic, or mood disturbance or anxiety (CMS/HCC) Expected: 08/17/2024 (Approximate), Expires: 08/17/2025[facility] HealthcareComment on above:Expected: 08/17/2024 (Approximate), Expires: 08/17/2025Start: 08-17-2024 End: 26-64-2573Ehmjhxb encounter owdazlgox90/05/2025 9:30 AM EST Office Visit JENNA SWARTZ [address] [place] [address] Rosie Jones DO [address] [place], [place] [id number] ArrivedJENNA MAXIMEComment on above:ArrivedStart: 07-13-2024 Annual Wellness Visit (Medicare Advantage)Annual Wellness Visit (Medicare Advantage)[facility] SystemsStart: 62-72-0065Dypvrso referralCherrington Hospital Work Phone: Start: 95-77-8224Fvtavnjgg vaccinationInfluenza Vaccine (#1)[facility]'sStart: 49-37-8890BbqdvihitTrihealth Mccull[facility] Start: 97-13-7327Funfqvnkvqmi Vaccine: 65+ Years (2 of 2 - PPSV23 or PCV20) Pneumococcal Vaccine: 65+ Years (2 of 2 - PPSV23 or PCV20)[facility] HealthcareStart: 71-88-7918Tethdgzwnqh Syncytial Virus (RSV) or age 60 yrs+ (1 - 1-dose 75+ series)Respiratory Syncytial Virus (RSV) or age 60 yrs+ (1 - 1-dose 75+ series)[facility]: 91-97-8074Jiiwlsedr for osteoporosis DEXA (modify frequency per FRAX score)[facility]: 1990 Shingles vaccine (1 of 2)Shingles vaccine (1 of 2)[facility]: 46-95-9892KGiZ/Tdap/Td vaccine (1 - Tdap)DTaP/Tdap/Td vaccine (1 - Tdap)[facility]: 92-10-5467Wswvcofjdxgc 50+ years Vaccine (1 of 2 - PCV)Pneumococcal 50+ years Vaccine (1 of 2 - PCV)[facility]: 08-95-2157Jyijvgszhf ScreenDepression ScreenH[facility] of [facility]: 67-07-9418Kqutb panelLipidsCommunity Health SystemsBacteria identified in Urine by CultureTrihealth Mccullough-Hyde Memorial HospitalBacteria identified in Urine by [facility] HospitalDXA Skeletal system.axial Views for bone densityTrihealth Mccullough-Hyde Memorial HospitalEKG 12 LeadEKG 12 Lead ECG Routine 05/05/2025 9:28 PM EDTBSouthside Regional Medical CenterOxygen therapy [Minimum Data Set] Initiate Oxygen Therapy Protocol Respiratory Care Routine As Needed until discontinued starting 05/06/2025on [facility] HospitalComment on above:As Needed until discontinued starting 05/06/2025Patient referralCherrington Hospital Work Phone: Renal function 1999 panel - Serum or [facility] HospitalRenal function 1999 panel - Serum or [facility] HospitalRenal function 1999 panel - Serum or [facility] Immunizations Immunization DateImmunizationNotesCare OmoijrltWqqptnsw73-07-2992xqexkfmgz virus vaccine, unspecified formulationChristopher Karen DO Work Phone: [facility] John'sTbykswfjvc13-89-1045cqznhkbtt virus vaccine, split virus (incl. purified surface antigen)David Pike Other [facility] Other 989778-91-4163nllziuloc virus vaccine, unspecified formulationTrihealth Mccullough-Hyde Memorial Hospital10-27-2021COVID-19 Vaccine Moderna - Documentation Purposes OnlyDavid Pike Other [facility]10-11-2021influenza virus vaccine, split virus (incl. purified surface antigen)David Pike Other [employer] Other 10011492-57-0216vlerqfzeu virus vaccine, unspecified formulationTrihealth Mccullough-Hyde [facility] Hospital02-18-2021COVID-19 Vaccine Moderna - Documentation Purposes OnlyDavid Pike Other [facility]01-18-2021COVID-19 Vaccine Moderna - Documentation Purposes OnlyAmandaamara Glendy Other [facility]11-08-2020influenza virus vaccine, split virus (incl. purified surface antigen)David Pike Other [employer] Other 544615-93-7220rhbzijubg virus vaccine, unspecified formulationTrihealth Mccullough-Hyde Memorial Hospital10-29-2020pneumococcal polysaccharide vaccine, 23 valentAmandaa Pike Other [facility]02-10-2020zoster vaccine, liveMarshailesha Pike Other [facility]11-09-2019influenza virus vaccine, split virus (incl. purified surface antigen)David Pike Other [employer] Other 11559418-67-2885fljushwtr virus vaccine, unspecified formulationTrihealth Mccullough-Hyde Memorial Hospital12-10-2017influenza virus vaccine, split virus (incl. purified surface antigen)David Pike Other [employer] Other 12-878202-31-4534kymvhjiia virus vaccine, unspecified formulationTrihealth Mccullough-Hyde [facility] Hospital09-27-2016influenza virus vaccine, split virus (incl. purified surface antigen)David Pike Other [employer] Other 09-610784-33-6232mmbprwwyh virus vaccine, unspecified formulationTrihealth Mccullough-Hyde Memorial Hospital Payers DatePayer CategoryPayerPolicy [id number] (Managed Care) [id number] 2023Medicared67ewz [id number] 2.16.840.9.005680.78045211-59-1167Yypc-[id number] [id number] 2.16.840.1.564180.3.57[id number] 2.16.840.1.069988.3.57[id number] 2.840.1.673646.3.57[id number] 2.16.840.1.715637.3.57[id number] 2..840.1.810439.3.57[id number] 2..840.1.248402.3.57[id number] 2.16.840.1.961882.3.57[id number] 2.16.840.1.854837.3.57[id number] 2.16.840.1.773279.3.57[id number] 2.16.840.1.656612.3.57[id number] 2.16.840.1.665469.3.57[id number] 2.0.1.453897.3.57[id number] 2.0.1.806860.3.57[id number] 2.0.1.55[id number] Pay [id number] [id number] [id number]-peh5-6in0-s305-9cw7cir0f6b5YnsrsqgWsgebzhv LIfe [id number]-652g-[id number] 2..1.608044.3.579.2.593 Social History DateTypeDetailFacilityUnknown if ever smokedNoresearch psychiatric center [facility] Other Start: 10-04-2018 End: 57-85-5405Ndo [facility]igned At [facility]tart: 48-10-0810Bir Assigned At [facility]art: 09-23-2022 End: 73-79-3742Nstdmio smoking statusNever smoked tobacco (finding)[facility] smoking statusNever [facility] smoking status NHISTobacco smoking consumption unknownS[facility] LAKE [facility] HealthcareStart: 02-58-8922Mdl assigned at birthNot on fileNOMS HealthcareStart: 08-24-2012 End: 94-53-4951YqcLjjtzh (finding)[facility]tart: 05-20-9981Ivijvudnx beverage intakeLifetime non-drinker (finding)Tony JerniganCarmot TherapeuticsStart: 10-04-2018 End: 60-89-2608Bvumwdz of Social functionTony Color EightHow often to you have a drink containing alcohol?NeverBon Color EightIn the past 12 months, was there a time when you were not able to pay the mortgage or rent on time?NoBon Color Eight(I/We) worried whether (my/our) food would run out before (I/we) got money to buy more.Never trueBon [employer] Eight Functional Status LzpiCsstnbksvaHilfwnIverdrah79-85-3651Ypuccpfeyc StatusN/AExec[facility] [employer] Clinical Notes 09-17-2021 to 05-06-2025 Note Date & LjsaQbuqXybzmcnp57-03-6490 History of Present illness Narrative* Padma Ignacio RN - 05/06/2025 1:45 PM EDT Discharge instructions, medications, and new medication reviewed with the patient and daughter and appropriate educational materials and side effects teaching were provided. Instructed to call doctors office on Thursday to follow up. * Padma Ignacio RN - 05/06/2025 9:15 AM EDT [facility], only medication that has been filled is her requip. [employer] Access[employer] Installer spoke with patient at this time and she said she fills her medications at different pharmacies and someone will bring in her home medication list this afternoon. SUSAN Eli updated and notified. * Padma Ignacio RN - 05/06/2025 7:26 AM EDT [facility] Able to ambulate from wheelchair. Denies any pain or dizziness. Alertand oriented x4. Vitals, orthostatics, navigator, and assessment done at this time. Patient unsure of home medications someone is supposed to bring in her list this morning. residential monitor applied. Will continue to monitor. documented in this encounterBon [facility] Narrative* Perez James MD - 05/06/2025 9:48 AM EDT Images from the original note were not included. Discharge Summary Ella Frank : 1940 Admit date: 05/05/2025 Discharge date: 05/06/2025 Admitting Physician: Perez James MD Discharge Diagnoses: Principal Problem: Near syncope [...] Your Medications These medications were sent to [facility]/pharmacy #[id number] [place], [place] - [address] - P [phone] - F [phone] [address] [facility] [place] [address] losartan-hydroCHLOROthiazide 100-12.5 MG per tablet Consultants: None Hospital Course: Ella Frank is a 84 y.o. female admitted with [...] 35 minutes Patient will be followed by David Pike MD in 1-2 weeks Signed: Perez James MD 05/06/2025, 9:49 AM documented in this encounterBon [facility] Hospital Discharge instructions* Discharge Instructions* Perez James MD - 05/06/2025 9:48 AM EDT Note blood pressure medicine was changed to losartan/HCTZ. Plenty of fluids Follow-up with primary care in 1 week please * Discharge Instr - Activity* Alcira Tong - 05/06/2025 11:27 AM EDT Activity as tolerated * Discharge Instr - Diet* Alcira Tong - 05/06/2025 11:28 AM EDT Good [...] at most local grocery stores, pharmacies, and [employer]st[employer]. If you have any questions about your diet or nutrition, call the hospital and ask for the dietitian. Regular diet documented in this encounterBon [facility] Evaluation note* Diagnosis Onset Date Resolution Status [...] (urinary tract infection)acuteOctober 2024 9:59am MenopauseacuteOctober 2024 9:47am [facility] Work Phone: 1(629) 522-297207-29-2025 Evaluation note* Diagnosis Onset Date Resolution Status [...] 2024 9:47amModerate recurrent major depressionacuteOctober 2024 9:47am [facility] Work Phone: 1(639) 331-869907-15-2025 Evaluation note* Diagnosis Onset Date Resolution Status Admit Date Dysuria acuteJuly 2024 11:01amLacunar infarctionchronicJuly 2024 10:29amMild late onset Alzheimer's dementiachronicJuly 2024 10:29amDysuriaacuteJuly 2024 11:06amUTI (urinary tract infection)acuteSeptember 2024 1:04pm AnxietyacuteSeptember 2024 1:01pmHTN (hypertension)acuteSeptember 2024 1:01pmMedicare annual wellness visit, subsequentacuteSeptember 2024 1:01pm Memory changesacuteSeptember 2024 1:01pmRestless leg syndromeacuteSeptember 2024 1:01pmMild late onset Alzheimer's dementiachronicSeptember 2024 1:01pm [facility] Work Phone: 1(572) 402-972407-15-2025 Evaluation note* Diagnosis Onset Date Resolution Status Admit Date Dysuria acuteJuly 2024 11:01amLacunar infarctionchronicJuly 2024 10:29amMild late onset Alzheimer's dementiachronicJuly 2024 10:29amDysuriaacuteJuly 2024 11:06amUTI (urinary tract infection)acuteSeptember 2024 1:04pm AnxietyacuteSeptember 2024 1:01pmHTN (hypertension)acuteSeptember 2024 1:01pmMedicare annual wellness visit, subsequentacuteSeptember 2024 1:01pm Memory changesacuteSeptember 2024 1:01pmRestless leg syndromeacuteSeptember 2024 1:01pmMild late onset Alzheimer's dementiachronicSeptember 2024 1:01pmDepression with anxietyacuteOctober 2024 1:29pmMemory changesacute April 18, 2025 1:29pmWord finding difficultyacuteOctober 2024 1:29pm Lacunar infarctionchronicOctober 2024 1:29pmMemory lossacuteOctober 2024 12:12pmMild neurocognitive disorderacuteOctober 2024 12:12pmModerate anxietyacuteOctober 2024 12:12pmModerate recurrent major depressionacute April 19, 2025 12:12pmWord finding difficultyacuteOctober 2024 12:12pm Lacunar infarctionchronicOctober 2024 12:12pm [facility] Work Phone: 1(859) 748-679007-15-2025 Evaluation note* Diagnosis Onset Date Resolution Status Admit Date Dysuria acuteJuly 2024 11:01amLacunar infarctionchronicJuly 2024 10:29amMild late onset Alzheimer's dementiachronicJuly 2024 10:29amDysuriaacuteJuly 2024 11:06amUTI (urinary tract infection)acuteSeptember 2024 1:04pm AnxietyacuteSeptember 2024 1:01pmHTN (hypertension)acuteSeptember 2024 1:01pmMedicare annual wellness visit, subsequentacuteSeptember 2024 1:01pm Memory changesacuteSeptember 2024 1:01pmRestless leg syndromeacuteSeptember 2024 1:01pmMild late onset Alzheimer's dementiachronicSeptember 2024 1:01pmDepression with anxietyacuteOctober 2024 1:29pmMemory changesacute April 18, 2025 1:29pmWord finding difficultyacuteOctober 2024 1:29pm Lacunar infarctionchronicOctober 2024 1:29pmMemory lossacuteOctober 2024 12:12pmMild neurocognitive disorderacuteOctober 2024 12:12pmModerate anxietyacuteOctober 2024 12:12pmModerate recurrent major depressionacute April 19, 2025 12:12pmWord finding difficultyacuteOctober 2024 12:12pm Lacunar infarctionchronicOctober 2024 12:12pmUTI (urinary tract infection) acuteOctober 2024 9:59am [facility] Work Phone: 1(499) 693-620606-12-2025 Evaluation note* Diagnosis Onset Date Resolution Status Admit Date Jeremy brown w cr kid I-IV acuteJune 2024 3:21pmCKD (chronic kidney disease) stage 4, GFR 15-29 ml/minacuteJune 2024 3:21pmGoutacuteJune 2024 3:21pm HyperglyceridemiaacuteJune 2024 3:21pmRenal cystacuteJune 2024 3:21pm [facility] Work Phone: 1(483) 239-989806-12-2025 Evaluation note* Diagnosis Onset Date Resolution Status Admit Date Jeremy brown w cr kid I-IV acuteJune 2024 3:21pmCKD (chronic kidney disease) stage 4, GFR 15-29 ml/minacuteJune 2024 3:21pmGoutacuteJune 2024 3:21pm HyperglyceridemiaacuteJune 2024 3:21pmRenal cystacuteJune 2024 3:21pmDysuriaacuteJuly 2024 11:01am [facility] Work Phone: 1(575) 990-744206-12-2025 Evaluation note* Diagnosis Onset Date Resolution Status Admit Date Jeremy bronw w cr kid I-IV acuteJune 2024 3:21pmCKD (chronic kidney disease) stage 4, GFR 15-29 ml/minacuteJune 2024 3:21pmGoutacuteJune 2024 3:21pm HyperglyceridemiaacuteJune 2024 3:21pmRenal cystacuteJune 2024 3:21pmDysuriaacuteJuly 2024 11:01amMild late onset Alzheimer's dementia chronicJuly 2024 10:29am [facility] Work Phone: 1(344) 540-414406-12-2025 Evaluation note* Diagnosis Onset Date Resolution Status Admit Date Jeremy yenny kid w cr kid I-IV acuteJune 2024 3:21pmCKD (chronic kidney disease) stage 4, GFR 15-29 ml/minacuteJune 2024 3:21pmGoutacuteJune 2024 3:21pm HyperglyceridemiaacuteJune 2024 3:21pmRenal cystacuteJune 2024 3:21pmDysuriaacuteJuly 2024 11:01amLacunar infarctionchronicJuly 2024 10:29amMild late onset Alzheimer's dementiachronicJuly 2024 10:29am [facility] Work Phone: 1(262) 296-313106-12-2025 Evaluation note* Diagnosis Onset Date Resolution Status Admit Date Jeremy tamez kid I-IV acuteJune 2024 3:21pmCKD (chronic kidney disease) stage 4, GFR 15-29 ml/minacuteJune 2024 3:21pmGoutacuteJune 2024 3:21pm HyperglyceridemiaacuteJune 2024 3:21pmRenal cystacuteJune 2024 3:21pmDysuriaacuteJuly 2024 11:01amLacunar infarctionchronicJuly 2024 10:29amMild late onset Alzheimer's dementiachronicJuly 2024 10:29am DysuriaacuteJuly 2024 11:06am [facility] Work Phone: 1([phone]) 159-287806-12-2025 Evaluation note* Diagnosis Onset Date Resolution Status Admit Date Jeremy tamez kid I-IV acuteJune 2024 3:21pmCKD (chronic kidney disease) stage 4, GFR 15-29 ml/minacuteJune 2024 3:21pmGoutacuteJune 2024 3:21pm HyperglyceridemiaacuteJune 2024 3:21pmRenal cystacuteJune 2024 3:21pmDysuriaacuteJuly 2024 11:01amLacunar infarctionchronicJuly 2024 10:29amMild late onset Alzheimer's dementiachronicJuly 2024 10:29am DysuriaacuteJuly 2024 11:06amUTI (urinary tract infection)acuteSeptember 2024 1:04pm [facility] Work Phone: 1(309) 309-143302-05-2025 History of Present illness Narrative* Rosie Jones, DO - 08/17/2024 9:30 AM EST Images from [...] , wrist extensors , wrist flexor , inspector circuitry negative strength 5/5. LUE Strength deltoid , biceps , triceps , wrist extensors , wrist flexor , inspector circuitry negative strength 5/5. RLE Strength illopsoas, quadriceps, tibialis [...] reflex 1+ . Austin's sign negative. Coordination: Pbxxec-ox-vnzu testing and rapid alternating movements are normal Gait: Normal Review and summary of old records: Kennan cognitive assessment at [facility] neurology: CT of the brain without contrast [...] plan, and return instructions documented in this encounterMercy Hospital St. John'[id number] Evaluation note* Diagnosis Onset Date Resolution Status Admit Date CKD (chronic kidney disease) stage 4, GF R 15-29 ml/min acuteDeceer 2023 12:57pmHTN (hypertension)acuteDecember 2023 12:57pm Memory changesacuteDecember 2023 12:57pmRestless leg syndromeacuteDececobre [facility] 2023 12:57pm [facility] Work Phone: 1(440) 963-113602-09-2024 Evaluation note* Encounter Date Diagnosis Assessment Notes Treatment Notes Treatment Clinical Notes Aug, Dysuria (ICD-10 - R30.0) UA normal Aug,Medicare annual wellness visit, subsequent (ICD-10 - Z00.00) [...] reviewed and amended by provider signed below. Aug,estless leg syndrome (ICD-10 - G25.81)Increased dose to 1mg qhs [employer] Other 10-30-2023 Evaluation note* Encounter Date Diagnosis Assessment Notes Treatment Notes Treatment Clinical Notes Apr, Restless leg syndrome (ICD-10 - G25.81) [employer] Other 10-25-2023 Evaluation note* Encounter Date Diagnosis Assessment Notes Treatment Notes Treatment Clinical Notes Apr, Acute non-recurrent maxillary si nusitis (ICD-10 - J01.00) Take antibiotics as prescribed. Rest fluids. Call if symptoms worsens or persist more than 1 week. [employer] Other 10-06-2023 Evaluation note* Encounter Date Diagnosis Assessment Notes Treatment Notes Treatment Clinical Notes Apr, Restless leg syndrome (ICD-10 - G25.81) Increased dose of med to 0.5mg. Presently tolerates 0.25mg without adverse side effects. Discussed daily MVI and good hydration. Apr,nxiety (ICD-10 - F41.9)Notes am drowsiness. Agrees to d/c medication and monitor symptoms. Discussed could be side effect of regular use of med. [employer] Other 09-28-2023 Evaluation note* Encounter Date Diagnosis Assessment Notes Treatment Notes Treatment Clinical Notes Mar, Dysuria (ICD-10 - R30.0) repeat UA is normal. Continue present medication. will forward result to Dr. Shah in [place]. Mar,Visit for suture removal (ICD-10 - Z48.02)Pt tolerated well. Sutures removed. Skin tears and laceration treated with steristrips as well. [employer] Other 09-06-2023 Evaluation note* Encounter Date Diagnosis [...] dopey feeling then discussed with the PCP. 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 Continue current medications. I have advised her to monitor blood pressure at home and call office if stays above 140 over 90 mmHg. Mar,Renal cyst (ICD-10 - N28.1)She has a septated renal cyst in right kidney which has not been changed on repeat renal ultrasound. Mar,Vitamin D deficiency (ICD-10 - E55.9)Her calcium within normal limit. I have advised her to stop the calcium but continue the vitamin D 5000 units daily. Mar,Hypercalcemia (ICD-10 - E83.52)MBD parameters including Calcium, phosphorus, PTH and vitamin D are within the goal. Mar,Recurrent urinary tract infection (ICD-10 - N39.0)She has a recurrent UTIs and history of urethral stricture. She follows with Dr. Shah. Mar,Hyperuricemia (ICD-10 - E79.0)She has hyperuricemia due to the CKD but denies any gout flare. We will continue to monitor withoutmedication. [employer] Other 08-14-2023 Evaluation note* Encounter Date Diagnosis Assessment Notes Treatment Notes Treatment Clinical Notes Feb, Dysuria (ICD-10 - R30.0) [employer] Other 07-26-2023 Evaluation note* Encounter Date Diagnosis Assessment Notes Treatment Notes Treatment Clinical Notes Jan, Anxiety (ICD-10 - F41.9) Presently on klonopin. Was on prozac 20mg daily in 2018. She recalls stopping it as it made her tired. Will try lower dose. Discussed triggers - lately being home alone with bad weather this summer. Jan,Lactose intolerance (ICD-10 - E73.9)Relates diarrhea to ice cream. It is resolved w lactaid. Discussed food triggers at length. Jan,cute pain of right shoulder (ICD-10 - M25.511)Handwrote a PT form. Also suggested OTC Voltaren gel. Jan,KD (chronic kidney disease) stage 4, GFR 15-29 ml/min (ICD-10 - N18.4)Pt will followup w Dr. Hendrickson as scheduled. Reassured that creatinine of 1.6 is a good reading for her issues. [employer] Other 05-02-2023 Evaluation note* Encounter Date Diagnosis Assessment Notes Treatment Notes Treatment Clinical Notes November, Restless leg syndrome (ICD-10 - G25.81) [employer] Other 04-06-2023 Evaluation note* Encounter Date Diagnosis Assessment Notes Treatment Notes Treatment Clinical Notes Oct, HTN (hypertension) (ICD-10 - I10 ) Reviewed medication list. Will incrementally try decreasing amount and doses of medications in casethey are causing increased fatigue or lack of focus. We will start here. Oct,nxiety (ICD-10 - F41.9)Reviewed medications stressors and discussed with Ella. We will continue to monitor situation and continue present medicines. [employer] Other 03-22-2023 Evaluation note* Encounter Date Diagnosis [...] to slow down the progression of disease. Sep,en hy kid w cr kid I-IV (ICD-10 - I12.9)Her blood pressure is high today but usually controlled and she appears to be euvolemic. Continue current medications. I have advised her to monitor blood pressure at home and call office if stays above 140 over 90 mmHg. Sep,Renal cyst (ICD-10 - N28.1)She has a septated renal cyst in right kidney which has not been changed on repeat renal ultrasound. Sep,Vitamin D deficiency (ICD-10 - E55.9)Her calcium within normal limit. I have advised her to stop the calcium but continue the vitamin D 5000 units daily. Sep,Hypercalcemia (ICD-10 - E83.52)She has hypercalcemia with low PTH likely due to the oral calcium and vitamin D supplement. I have advised her to stop the calcium plus vitamin D. We will continue vitamin D for now. Sep,Recurrent urinary tract infection (ICD-10 - N39.0)She has a recurrent UTIs and history of urethral stricture. She follows with Dr. Shah. Sep,Hyperuricemia (ICD-10 - E79.0)She has hyperuricemia due to the CKD but denies any gout flare. We will continue to monitor withoutmedication. [employer] Other 03-14-2023 NoteChief Complaint Pt referral for incontinence HPI Staff Patient is here for referral from Dr. Pike for Incontinence. 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 Patient states incontinence has been an issue over 7-8 years. Patient has tried Estradiol cream in the past that was given by Dr. Shah 2021. Patient statesit helped with UTI's. Patient uses [facility] PVR=16mL Dysuria: no Incomplete bladder emptying: yes [...] no dysuria. Follow-up With When Contact Information CHELY GAY, SHONNA Quarles, URL [address] [place] [address] Additional Instructions: Call patient & schedule PFPT Patient Education Urinary Incontinence Documentation recorded by the jericho Larson accurately reflects the services(s) I performed and decisions made by me. Authenticated by Shonna Godoy PA-C on 09/23/2022 12:35:44. Mayela Gbariel, personally scribed for Shonna Godoy PA-C on 09/23/2022 11:13:57. . Problem List/Past Medical History Ongoing BMI 30.0-30.9,adult Cystitis Mixed incontinence Nocturia Post-void dribbling Postinfective urethral stricture in female Recurrent UTI Stress incontinence Urgency incontinence Historical No qualifying data Procedure/Surgical History Cystourethroscopy with dilation of urethral stricture (02/06/2020), Cystoscopy (08/31/2015), left cataract with iol (06/12/2015), Cystoscopy (12/12/2011), Caesarean section, C (more content not included)...[facility] Comment on above:Result Comment: Electronically Signed By: SHONNA GODOY PA-C\.br\Date and Time Signed: 09/24/2311:35 EDT\.br\Electronically Co-Signed By: Mayela Larson\.br\Date and Time Co-Signed: 09/23/22 11:14 [id number] Evaluation + Plan note Diagnostic Tests Pending * Urine Culture 09/23/22 [facility]03-14[facility] Hospital Discharge instructions Patient Education 09/23/2022 11:07:59 [...] (electrical nerve stimulation). For women, using a biomedical engineering technician to prevent urine leaks. This is a [...] right after experiencing incontinence. General instructions Take afcd-cvm-ffucomf and prescription medicines only as told by [...] 08/06/2005 Document Revised: 07/09/2018 Document Reviewed: 10/08/2017 [employer] Patient Education 2019 [employer]. Follow Up Care 09/22/2022 11:14:40 With:SHONNA GODOY PA-C, URL Address: [address] [place] [place] [address] When: Unknown [facility] Evaluation note* Encounter Date Diagnosis Assessment Notes Treatment Notes Treatment Clinical Notes Sep, Breast pain, right (ICD-10 - N64 .4) Called [facility] - they agree B diagnostic would be fine. Sep,Restless leg syndrome (ICD-10 - G25.81)Will increase dose of present med Sep,Other specified hypothyroidism (ICD-10 - E03.8)due for labs. will base refill dose on lab results. Sep,nxiety (ICD-10 - F41.9)Pt feels anxious in her new home. She is alone when her daughter is at work and she feels overwhelmed with stuff all over the house. Will check labs prior to adding med. Presently on clonazepam Sep,Frequent UTI (ICD-10 - N39.0)Established w Dr. Shah, but she changed her health insurance. Requests a referral to Dr. Charles. [employer] Other 03-08-2022 Evaluation note* Encounter Date Diagnosis [...] to slow down the progression of disease. Sep,en hy kid w cr kid I-IV (ICD-10 - I12.9) Her blood pressure is controlled and she appears to be euvolemic. Continue current medications. Sep,ecurrent urinary tract infection (ICD-10 - N39.0) She has a recurrent UTIs and history of urethral stricture. She follows with Dr. Shah. Sep,enal cyst (ICD-10 - N28.1) She has a septated renal cyst in right kidney which has not been changed on repeat renal ultrasound. Sep,Vitamin D deficiency (ICD-10 - E55.9) Her calcium within normal limit. I have advised her to stop the calcium but continue the vitamin D 5000 units daily. [employer] Other Evaluation + Plan note No data available for this section [facility] evaluation noteNo assessment information available [facility] Work Phone: Evaluation noteNo InformationNortHorsham Clinic eleni Other Evaluation note* Diagnosis Onset Date Resolution Status Postoperative bleeding from incision acuteBen hy kid w cr kid I-IVacuteCKD (chronic kidney disease) stage 4, GFR 15- 29 ml/minacuteGoutacuteHyperglyceridemiaacuteRenal cystacute [facility] Work Phone: Evaluation note* Diagnosis Onset Date Resolution Status CKD (chronic kidney disease) stage 4, GF R 15-29 ml/min acuteHTN (hypertension)acuteHypothyroidismacuteRestless leg syndromeacute [facility] Work Phone: Evaluation note* Diagnosis Onset Date Resolution Status CKD (chronic kidney disease) stage 4, GF R 15-29 ml/min acuteHTN (hypertension)acuteHypothyroidismacuteRestless leg syndromeacuteBen hy kid w cr kid I-IVacuteCKD (chronic kidney disease) stage 4, GFR 15-29 ml/min acuteGoutacuteHyperglyceridemiaacuteRenal cystacute [facility] Work Phone: Evaluation note* Diagnosis Mild late onset Alzheimer's dementia, unspecified whether behavioral, psychotic, or mood disturbance or anxiety ([facility])- Primary documented in this encounter [facility]* Diagnosis Near syncope suspect prerenal- Primary Syncope and collapse Congestive heart failure, unspecified HF chronicity, unspecified heart failure type (HCC) Elevated troponin Other abnormal blood chemistry Dizziness Dizziness and giddiness Dizziness Dizziness and giddiness Prerenal azotemia likely from HCTZ Other symptoms involving urinary system documented in this encounter [facility] general Narrative - Reported* Type Description Date Medical History ANXIETY Medical HistoryGERDMedical HistoryHYPERLIPIDEMIAMedical HistoryMACULAR DEGNERATION OF RETINA UNSPECIFIEDMedical HistoryOSTEOPENIAMedical HistoryGOUT Medical HistoryOVERACTIVE BLADDERMedical HistoryHYPOTHYROIDISMMedical History UTI'S X2 10/19/2020, 12/03/2020urgical RwbrjrkWCQJGHZRUOG32/11/2019Surgical HistoryBLADDER [id number] HistoryBASAL CELL BY RIGHT [id number] TkneczbJTO2603Rldfyvkv HistoryLEFT [id number] HistoryVITRECTOMY RIGHT SSQ1161Arjnssbv HistoryDR FABIENNE [id number] HistoryBONE REMOVED RIGHT [id number] History4 c-sectionsHospitalization HistorySEE ABOVE Hospitalization Historysyncope10/04/2018 [employer] Other [employer] general Narrative - Reported* Type Description Date Medical History ANXIETY Medical HistoryGERDMedical HistoryHYPERLIPIDEMIAMedical HistoryMACULAR DEGNERATION OF RETINA UNSPECIFIEDMedical HistoryOSTEOPENIAMedical HistoryGOUT Medical HistoryOVERACTIVE BLADDERMedical HistoryHYPOTHYROIDISMMedical History UTI'S X2 10/19/2020, 12/03/2020Medical HistoryUTI'S X 3 02/10/2022., , 03/05/2022Medical HistoryRestless leg syndromeMedical HistoryHTN (hypertension) Medical HistoryHyperglyceridemiaMedical HistoryAbnormal blood chemistryMedical HistoryDark stoolsMedical HistoryChest discomfortMedical HistoryLeft wrist pain Medical HistoryOsteoporosisMedical HistoryBenign hypertension with chronic kidney disease, stage IISurgical FaagempOUDQEFRTHHL83/11/2019Surgical History BLADDER [id number] HistoryBASAL CELL BY RIGHT [id number] History PYF7083Tojtctfx HistoryLEFT [id number] HistoryVITRECTOMY RIGHT [id number] Surgical HistoryDR FABIENNE [id number] HistoryBONE REMOVED RIGHT [id number] Surgical History4 c-sectionsHospitalization HistorySEE ABOVEHospitalization Historysyncope10/04/2018 [employer] Other Hospital Discharge instructions No data available for this section [facility] No data available for this section [facility] reason for referral (narrative)No reason for referral information available[facility] Work Phone: Reason for visit Narrative* Consultation (Routine) - Pending ReviewSpecialtyDiagnoses / ProceduresReferred By ContactReferred To ContactNeurology Diagnoses Other amnesia Procedures [place] OFFICE/OUTPATIENT [facility] David Pike MD [address] [place] [address] Phone: tel: fax: Edgar De La Rosa MD [address] [place] [address] Phone: tel: fax: Referral IDStatusReasonStart DateExpiration DateVisits RequestedVisits [id number] Review Consult and Treat / [facility] Healthcare Summary Purpose Family History No Family History Records Found Relationship Condition Age at Onset Recorded Date/T robinson brother Heart disease Unknown Malignant neoplasmUnknownFamily history of mental disorderUnknowndaughterFamily history of mental disorderUnknownfatherDeceasedUnknownHeart diseaseUnknownfamily memberDeceasedUnknownNot SpecifiedAneurysmUnknownDeceasedUnknown Relationship Condition Age at Onset Recorded Date/T robinson brother Heart disease Unknown Malignant neoplasmUnknownFamily history of mental disorderUnknowndaughterFamily history of mental disorderUnknownfatherDeceasedUnknownHeart diseaseUnknownfamily memberDeceasedUnknownmotherAneurysmUnknownDeceasedUnknown Advance Directives No Advanced Directives Records Found Advance Directive Response Recorded Date/ Time Advance Directives No June 11:52am Advance Directive Response Recorded Date/ Time Advance Directives No June 10:52am Date ActivatedDate QcqatxzxasrXvvpiksr56/25/2025 3:16 AMDate ActivatedDate InactivatedComments10/04/2018 10:25 PM10/05/2018 4:45 PM Chief Complaint and Reason for Visit Chief [...] n39.0 e79.0 RENAL 6 month Follow up ScreeningReason for VisitPostoperative bleeding from incision 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 CKD (chronic kidney disease) stage 4, GFR 15-29 ml/min Gout Hyperglyceridemia Renal cyst Chief Complaint Spot on face-Bleedin g n18.4 z12.9 n28.1 e55.9 e83.52 n39.0 e79.0 RENAL 6 month Follow up Screening UA-Burning, Pain, FrequencyReason for VisitPostoperative bleeding from incision 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 CKD (chronic kidney disease) stage 4, GFR 15-29 ml/min Gout Hyperglyceridemia Renal cyst Chief Complaint UA, burning, frequen cy Chief Complaint UA, burning, frequen cy 4 month follow upReason for VisitCKD (chronic kidney disease) stage 4, GFR 15-29 ml/min HTN (hypertension) Hypothyroidism Restless leg syndrome Chief Complaint UA, burning, frequen cy 4 month follow up i10 e03.9 n18.4Reason for VisitCKD (chronic kidney disease) stage 4, GFR 15-29 ml/min HTN (hypertension) Hypothyroidism Restless leg syndrome Chief Complaint UA, burning, frequen cy 4 month follow up i10 e03.9 n18.4 n28.1 i12.9 n18.4 m10.9Reason for VisitCKD (chronic kidney disease) stage 4, GFR 15-29 ml/min HTN (hypertension) Hypothyroidism Restless leg syndrome Chief Complaint UA, burning, frequen cy 4 month follow up i10 e03.9 n18.4 n28.1 i12.9 n18.4 m10.9 RENAL 6 MONTH F/UReason for VisitCKD (chronic kidney disease) stage 4, GFR 15-29 [...] 1am Reason for Visit Admit Date 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 December 22, 2024 3:21pm CKD (chronic kidney disease) stage 4, GF R 15-29 ml/min December 22, 2024 3:21pm Gout December 22, 2024 3:21 pm Hyperglyceridemia December 22, 2024 3:21 pm Renal cyst December 22, 2024 3:21 pm Reason for Visit Admit Date Jeremy tamez kid I-IV December 22, 2024 3:21pm CKD [...] 9am Reason for Visit Admit Date Jeremy tamez kid I-IV December 22, 2024 3:21pm CKD [...] 6am Reason for Visit Admit Date Jeremy tamze kid I-IV December 22, 2024 3:21pm CKD [...] 10:29am Reason for Visit Admit Date Jeremy umana [...] 10:29am Dysuria February 09, 2025 11:0 6am Chief Complaint Admit Date renal f/u December 22, 2024 3:21 pm G30.1 F02.A0 December 29, 2024 6:53 pm R30.0 January 24, 2025 11:0 0am UA:Cloudy/Burning January 24, 2025 11:0 1am Follow up February 07, 2025 10:2 9am UA, recheck February 09, 2025 11:0 6am R30.0 February 09, 2025 11:1 5am UA:Burning/Cloudy March 14, 2025 1:04pm Chief Complaint Admit Date renal f/u December 22, 2024 3:21 pm [...] Wellness/TBH ER f/u March 21, 2025 1:01pm Reason for Visit Admit Date Jeremy hy [...] (urinary tract infection) March 14, 2025 1:04pm Chief Complaint Admit Date R30.0 January 24, 2025 11:0 0am UA:Cloudy/Burning January 24, 2025 11:0 1am Follow up February 07, 2025 10:2 9am UA, recheck February 09, 2025 11:0 6am R30.0 February 09, 2025 11:1 5am UA:Burning/Cloudy March 14, 2025 1:04pm Amb Documentation March 16, 2025 11:31am Wellness/TBH ER f/u March 21, 2025 1:01pm APPROVED AUTH #[id number]; ASSESSMENT Oc tober 2024 1:29pm Reason for Visit Admit Date Dysuria January 24, 2025 11:0 1am Lacunar [...] onset Alzheimer's dementia Sep tember 2024 1:01pm Chief Complaint Admit Date R30.0 January 24, 2025 11:0 0am UA:Cloudy/Burning January 24, 2025 11:0 1am Follow up February 07, 2025 10:2 9am UA, recheck February 09, 2025 11:0 6am R30.0 February 09, 2025 11:1 5am UA:Burning/Cloudy March 14, 2025 1:04pm Amb Documentation March 16, 2025 11:31am Wellness/TBH ER f/u March 21, 2025 1:01pm APPROVED AUTH #[id number]; ASSESSMENT Oc tober 2024 1:29pm APPROVED AUTH #[id number]; TESTING Octob er 2024 12:12pm Chief Complaint Admit Date R30.0 January 24, 2025 11:0 0am UA:Cloudy/Burning January 24, 2025 11:0 1am Follow up February 07, 2025 10:2 9am UA, recheck February 09, 2025 11:0 6am R30.0 February 09, 2025 11:1 5am UA:Burning/Cloudy March 14, 2025 1:04pm Amb Documentation March 16, 2025 11:31am Wellness/TBH ER f/u March 21, 2025 1:01pm APPROVED AUTH #[id number]; ASSESSMENT Oc tober 2024 1:29pm APPROVED AUTH #[id number]; TESTING Octob er 2024 12:12pm UA:Frequency/Burning April 21, 2025 9:59am Reason for Visit Admit Date Dysuria January 24, 2025 11:0 1am Lacunar [...] 1:01pm Mild late onset Alzheimer's dementia Sep 2024 1:01pm Depression with anxiety April 18 [...] Lacunar infarction April 19, 2025 12 :12pm Reason for Visit Admit Date Dysuria January 24, 2025 11:0 1am Lacunar [...] 1:01pm Mild late onset Alzheimer's dementia Sep 2024 1:01pm Depression with anxiety April 18 [...] UTI (urinary tract infection) April 212024 9:59am Chief Complaint Admit Date Follow up February 07, 2025 10:2 9am UA, recheck February 09, 2025 11:0 6am R30.0 February 09, 2025 11:1 5am UA:Burning/Cloudy March 14, 2025 1:04pm Amb Documentation March 16, 2025 11:31am Wellness/TBH ER f/u March 21, 2025 1:01pm APPROVED AUTH #[id number]; ASSESSMENT Oc tober 2024 1:29pm APPROVED AUTH #[id number]; TESTING Octob er 2024 12:12pm UA:Frequency/Burning April 21, 2025 9:59am R30. April 21, 2025 1 0:22am Discuss Results (Dr. Alexander) May 02, 2025 9:47am Reason for Visit Admit Date Lacunar infarction [...] 9:59am Menopause May 02, 2025 9 :47am Chief Complaint Admit Date Follow up February 07, 2025 10:2 9am UA, recheck February 09, 2025 11:0 6am R30.0 February 09, 2025 11:1 5am UA:Burning/Cloudy March 14, 2025 1:04pm Amb Documentation March 16, 2025 11:31am Wellness/TBH ER f/u March 21, 2025 1:01pm APPROVED AUTH #[id number]; ASSESSMENT Oc tober 2024 1:29pm APPROVED AUTH #[id number]; TESTING Octob er 2024 12:12pm UA:Frequency/Burning April 21, 2025 9:59am R30. April 21, 2025 1 0:22am Discuss Results (Dr. Alexander) May 02, 2025 9:47am [facility] 08, 2025 11:44am Reason for Visit Admit Date Lacunar infarction February 07, 2025 10:2 9am Mild late onset Alzheimer's dementia Micheal 2024 10:29am Dysuria February 09, 2025 11:0 [...] 9:47am Moderate recurrent major depression 2024 9:47am Reason for Referral Reason 09/23/22 @ 10 Freq uent UTIs Diagnosis 1 Frequent UTI (N39.0) Referral Organization [facility] pride Referring Provider First Name David Referring Provider Last Name Glendy Referring Provider Specialty Family Medi cine Referred Organization [facility] Referred Provider CORRINEFRED Referred Address [address],[place], [place],[address] Referred Provider Specialty Urology Referral Priority Routine [...] ized section and content) DATE CREATED AUTHOR 10/20/[address] [facility] DATE CREATED AUTHOR AUTHOR'S ORGANIZ ATION 03/21/2022 [facility] DATE CREATED AUTHOR AUTHOR'S ORGANIZ ATION 10/03/2022 [facility] DATE CREATED AUTHOR AUTHOR'S ORGANIZ ATION 11/04/[address] [facility] DATE CREATED AUTHOR AUTHOR'S ORGANIZ ATION 08/19/2024 [facility] DATE CREATED AUTHOR AUTHOR'S ORGANIZ ATION 02/21/2025 [facility] DATE CREATED AUTHOR AUTHOR'S ORGANIZ ATION 04/24/2025 [facility] DATE CREATED AUTHOR AUTHOR'S ORGANIZ ATION 05/16/2025 [facility] REASON FOR VISIT (unrecogniz ed section and content) ReasonCommentsDizzinessSpecialtyDiagnoses / ProceduresReferred By Contact Referred To Contact Diagnoses Near syncope Perez James MD [address] [place] [address], [place] [address] Phone: tel: fax: [facility] [phone] [place] [address] Referral IDStatusReasonStart DateExpiration DateVisits RequestedVisits [id number] Care Teams (unrecognized sec tion and content) Team Status: Active Member Role Status Dates David Pike MD Primary Care Provider Active Team Status: Inactive Member Role Status Dates David Pike MD Primary Care Provider Active Start: November 28, 2024 End: November 28bdul Emeka , MDAttending ProviderActiveStart: November 28, 2024 End: November 28, 2024 Team Status: Inactive Member Role Status Dates David Pike MD Primary Care Provider Active Start: December 22, 2024 End: December 22bdul Emeka , MDAttending ProviderActiveStart: December 22, 2024 End: December 22, 2024 Team Status: Inactive Member Role Status Karina Pike MD Primary Care Provider Active Start: December 29, 2024 End: December 29ilda Jones DOAttmahnaz ProviderActiveStart: December 29, 2024 End: December 29, 2024 Team Status: Inactive Member Role Status Karina Pike MD Primary Care Provider Active Start: January 24, 2025 End: January 24, 2025David Pike MDAttending ProviderActiveStart: January 24, 2025 End: January 24, 2025 Team Status: Active Member Role Status Karina Pike MD Primary Care Provide r, Attending Provider Active Start: June 14, 2024 Team Status: Inactive Member Role Status Karina Pike MD Primary Care Provide r, Attending Provider Active Start: June 17, 2024 End: June 17, 2024 Team Status: Inactive Member Role Status Karina Pike MD Primary Care Provider Active Start: August 17, 2024 End: August 17ilda Jones DOAttending ProviderActiveStart: August 17, 2024 End: August 17, 2024 Team Status: Inactive Member Role Status Karina Pike MD Primary Care Provider Active Deepa Emeka , MDAttending ProviderActive Team Status: Inactive Member Role Status Karina Pike MD Primary Care Provider, Other Provi anthony Active Deepa Emeka , MDAttending ProviderActive Team Status: Inactive Member Role Status Karina Pike MD Primary Care Provider, Attending Clarisse cardona Active Team Status: Inactive Member Role Status Karina Pike MD Primary Care Provide r, Attending Provider Active Start: September 04, 2023 End: September 04, 2023 Team Status: Inactive Member Role Status Dates David Pike MD Primary Care Provider Active Start: September 07, 2023 End: September 07bdul Emeka , MDAttending ProviderActiveStart: September 07, 2023 End: September 07, 2023 Team Status: Inactive Member Role Status Dates David Pike MD Primary Care Provider Active Start: September 17, 2023 End: September 16bdul Emeka , MDAttending ProviderActiveStart: September 17, 2023 End: September 17, 2023 Team Status: Inactive Member Role Status Dates David Pike MD Primary Care Provide r, Attending Provider Active Start: October 05, 2023 End: October 05, 2023 Team Status: Inactive Member Role Status Karina Pike MD Primary Care Provider Active Start: October 09, 2023 End: October 09, 2023Shonna Villeda APRN RN GERIATRIC-CAttending ProviderActive Start: October 09, 2023 End: October 09, 2023 Team Status: Inactive Member Role Status Karina Pike MD Primary Care Provider Active Start: March 11, 2024 End: March 11enJose Ram ProviderActiveStart: March 11, 2024 End: March 11, 2024 [...] Active Start: March 28, 2024 End: March 28bdul Emeka , MDAttending ProviderActiveStart: March 28, 2024 End: March 28, 2024 Team Status: Inactive Member Role Status Karina Pike MD Primary Care Provider Active Start: March 29, 2024 End: March 29bdul Emeka , MDAttending ProviderActiveStart: March 29, 2024 End: March 29, 2024Team MemberRelationshipSpecialtyStart DateEnd Date David Pike MD [address] [place] [place] [address] PCP - [facility]06/28/24Team MemberRelationshipSpecialtyStart Date End Date David Pike MD [address] [place] [place] [address] PCP - [facility]06/28/24 Team Status: Inactive Member Role Status Dates David Pike MD Primary Care Provide r, Attending Provider Active Start: August 18, 2024 End: August 18, 2024 Team Status: Inactive Member Role Status Dates David Pike MD Attending Provider Active art: January 24, 2025 End: January 24, 2025 Team Status: Inactive Member Role Status Dates David Pike MD Primary Care Provider Active Start: February 07, 2025 End: February 07, 2025Inessa Haynes , MSQP-KIO-CUbgzvjljt ProviderActiveStart: February 07, 2025 End: February 07, 2025 Team Status: Inactive Member Role Status Dates David Pike MD Primary Care Provider Active Start: February 09, 2025 End: February 09, 2025Halie Quanending ProviderActiveStart: February 09, 2025 End: February 09, 2025 Team Status: Inactive Member Role Status Dates David Pike MD Attending Provider Active St art: February 09, 2025 End: February 09, 2025 Team Status: Active Member Role Status Dates David Pike MD Primary Care Provider Active Start: March 09, 2025 Chrissy Quan ProviderActiveStart: March 09, 2025 Team Status: Inactive Member Role Status Dates David Pike MD Primary Care Provider Active Start: March 14, 2025 End: March 14, 2025Chrissy Quan ProviderActiveStart: March 14, 2025 End: March 14, 2025 Team Status: Active Member Role Status Dates David Pike MD Primary Care Provider Active Start: March 16, 2025 Dorota Loaiza CMAAttending ProviderActiveStart: March 16, 2025 Team Status: Inactive Member Role Status Dates David Pike MD Primary Care Provider Active Start: March 21, 2025 End: March 21, 2025David Pike MDAttending ProviderActiveStart: March 21, 2025 End: March 21, 2025 Team Status: Inactive Member Role Status Dates David Pike MD Primary Care Provider Active Start: April 18, 2025 End: April 18, 2025Thomas Alexander PhDAttending ProviderActiveStart: April 18, 2025 End: April 18, 2025 Team Status: Inactive Member Role Status Dates David Pike MD Primary Care Provider Active Start: April 19, 2025 End: April 19, 2025Thomas Alexander PhDAttending ProviderActiveStart: April 19, 2025 End: April 19, 2025 Team Status: Inactive Member Role Status Dates David Pike MD Primary Care Provider Active Start: April 21, 2025 End: April 21, 2025Shonna Villeda APRN RN GERIATRIC-CAttending ProviderActive Start: April 21, 2025 End: April 21, 2025 Team Status: Inactive Member Role Status Dates David Pike MD Attending Provider Active St art: April 21, 2025 End: April 21, 2025 Team Status: Active Member Role/Relationship Status Dates David Pike MD Primary Care Provider Active Team Status: Inactive Member Role/Relationship Status Dates David Pike MD Primary Care Provider Active Start: February 07, 2025 End: February 07, 2025Inessa Haynes APRN-FNP-CAttending ProviderActiveStart: February 07, 2025 End: February 07, 2025 Team Status: Inactive Member Role/Relationship Status Dates David Pike MD Primary Care Provider Active Start: February 09, 2025 End: February 09, 2025David Pike MDAttending ProviderActiveStart: February 09, 2025 End: February 09, 2025 Team Status: Inactive Member Role/Relationship Status Dates David Pike MD Attending Provider Active St art: February 09, 2025 End: February 09, 2025 Team Status: Active Member Role/Relationship Status Dates David Pike MD Primary Care Provider Active Start: March 09, 2025 David Pike MDAttending ProviderActiveStart: March 09, 2025 Team Status: Inactive Member Role/Relationship Status Dates David Pike MD Primary Care Provider Active Start: March 14, 2025 End: March 14, 2025David Pike MDAttending ProviderActiveStart: March 14, 2025 End: March 14, 2025 Team Status: Active Member Role/Relationship Status Dates David Pike MD Primary Care Provider Active Start: March 16, 2025 Dorota Loaiza CMAAttending ProviderActiveStart: March 16, 2025 Team Status: Inactive Member Role/Relationship Status Dates David Pike MD Primary Care Provider Active Start: March 21, 2025 End: March 21, 2025David Pike MDAttending ProviderActiveStart: March 21, 2025 End: March 21, 2025 Team Status: Inactive Member Role/Relationship Status Dates David Pike MD Primary Care Provider Active Start: April 18, 2025 End: April 18, 2025Thomas Alexander PhDAttending ProviderActiveStart: April 18, 2025 End: April 18, 2025 Team Status: Inactive Member Role/Relationship Status Dates David Pike MD Primary Care Provider Active Start: April 19, 2025 End: April 19, 2025Thomas Alexander PhDAttending ProviderActiveStart: April 19, 2025 End: April 19, 2025 Team Status: Inactive Member Role/Relationship Status Dates David Pike MD Primary Care Provider Active Start: April 21, 2025 End: April 21, 2025Shonna Villeda APRN RN GERIATRIC-CAttending ProviderActive Start: April 21, 2025 End: April 21, 2025 Team Status: Inactive Member Role/Relationship Status Dates David Pike MD Attending Provider Active St art: April 21, 2025 End: April 21, 2025 Team Status: Inactive Member Role/Relationship Status Dates David Pike MD Primary Care Provider Active Start: May 02, 2025 End: May 02, 2025David Pike MDAttending ProviderActiveStart: May 02, 2025 End: May 02, 2025Team MemberRelationshipSpecialtyStart DateEnd Date David P[facility] Team Status: Inactive Member Role/Relationship Status Dates David Pike MD Primary Care Provider Active Start: May 08, 2025 End: May 08, 2025David Pike MDAttending ProviderActiveStart: May 08, 2025 End: May 08, 2025 Goals (unrecognized section and content) Goals may be documented in a n alternate section Ordered Prescriptions (unrec ognized section and content) PrescriptionSigDispense QuantityRefillsLast FilledStart DateEnd losartan-hydroCHLOROthiazide (HYZAAR) 100-12.5 MG per tablet Take 1 tablet by mouth daily 30 tablet Scheduled Active and Recently Administ ered Medications (unrecognized section and content) Medication Order atorvastatin (LIPITOR) tablet 20 mg 20 mg, Oral, EVERY BEDTIME, 2 doses, First dose on 05/06/25 at 2100, Last dose on 05/07/25 at 2100 * 2100 (Due) busPIRone (BUSPAR) tablet 5 mg 5 mg, Oral, 2 TIMES DAILY, 4 doses, First dose on 05/06/25 at 1115, Last dose on 05/07/25 at 2100 * 1118 (Not Given - Provider: Alcira Tong - Reason: Patient/family refused) * 2100 (Due) clopidogrel (PLAVIX) tablet 75 mg 75 mg, Oral, DAILY, 2 doses, First dose on 05/06/25 at 1115, Last dose on 05/07/25 at 0900 * 1118 (Not Given - Provider: Alcira Tong - Reason: Patient/family refused) donepezil (ARICEPT) tablet 5 mg 5 mg, Oral, NIGHTLY, 2 doses, First dose on 05/06/25 at 2100, Last dose on 05/07/25 at 2100 * 2100 (Due) hydroCHLOROthiazide capsule 12.5 mg 12.5 mg, Oral, [...] for 30 minutes before and after dose. * 1600 (Due) losartan (COZAAR) tablet 100 mg 100 mg, Oral, DAILY, First dose on 05/06/25 at 1130, Until Discontinued, Along with HCTZ * 1114 (Given - Provider: Alcira Tong) oyster shell calcium w/D 500-5 MG-MCG tablet 1 tablet 1 tablet, Oral, DAILY WITH BREAKFAST, 2 doses, First dose on 05/06/25 at 1115, Last dose on Sun05/07/25 at 0800, Administer, preferably with food, 2 hours before or after other medications. * 1118 (Not Given - Provider: Alcira Tong - Reason: Patient/family refused) pantoprazole (PROTONIX) tablet 40 mg 40 mg, Oral, DAILY BEFORE BREAKFAST, 2 doses, First dose on 05/07/25 at 0700, Last dose on 05/08/25 at 0700, Do not crush or break. Substituted for Omeprazole (PRILOSEC). rOPINIRole (REQUIP) tablet 2 mg 2 mg, Oral, NIGHTLY, 2 doses, First dose on 05/06/25 at 2100, Last dose on 05/07/25 at 2100 * 2100 (Due) sodium chloride flush 0.9 % injection 5-40 [...] - Provider: Alcira Tong - Reason: Other) * 2100 (Due) therapeutic multivitamin-minerals 1 tablet 1 tablet, Oral, [...] 05/06/25 at 1115, Last dose on 05/07/25 [id number] * 1115 (Given - Provider: Alcira Tong) Medication Order/ 0.9 % sodium chloride infusion IntraVENous, at [...] PRN, Starting on 05/06/25 at 0314, Until Discontinued, Pain Mild (1-3) OR per patient request for pain score (4-10), Fever, For temp greater than 100.4 F (38 C), Administer if oral route cannot be used. acetaminophen (TYLENOL) tablet 650 mg(Linked Group 1) 650 mg, Oral, EVERY 6 HOURS PRN, Starting on 05/06/25 at 0314, Until Discontinued, Pain Mild (1-3) OR per patient request for pain score (4-10), Fever, For temp greater than 100.4 F (38 C), Maximum dose of acetaminophen is 4000 mg from all sources in 24 hours. clonazePAM (KLONOPIN) tablet 0.5 mg 0.5 mg, Oral, 2 TIMES DAILY PRN, 2 doses, Starting on 05/06/25 at 0713, Until Discontinued, Anxiety iopamidol (ISOVUE-370) 76 % injection 100 mL (COMPLETED) 100 mL, IntraVENous, IMG ONCE PRN, 1 dose, Starting on Thu05/05/25 at 2229, Until Thu05/05/25 at 2233, Other * 2233 (Given - Provider: Gualberto Dyson) ondansetron (ZOFRAN) injection 4 mg(Linked Group 2) 4 mg, IntraVENous, EVERY 6 HOURS PRN, Starting on 05/06/25 at 0314, Until Discontinued, Nausea,Vomiting, Administer if oral route cannot be used. ondansetron (ZOFRAN-ODT) disintegrating tablet 4 mg(Linked Group 2) 4 mg, Oral, EVERY 8 HOURS PRN, Starting on 05/06/25 at 0314, Until Discontinued, Nausea, Vomiting polyethylene glycol (GLYCOLAX) packet 17 g 17 g, Oral, DAILY PRN, Starting on 05/06/25 at 0314, Until Discontinued, Constipation, First line therapy for constipation sodium chloride flush 0.9 % injection 10 mL 10 mL, IntraVENous, PRN, Starting on 05/06/25 at 0314, Until Discontinued, Line Care, After every IV line use Order Group 1: acetaminophen (TYLENOL) tablet 650 mgJump to med 650 mg, Oral, EVERY 6 HOURS PRN, Starting on 05/06/25 at 0314, Until Discontinued, Pain Mild (1-3) OR per patient request for pain score (4-10), Fever, For temp greater than 100.4 F (38 C), Maximum dose of acetaminophen is 4000 mg from all sources in 24 hours. Or acetaminophen (TYLENOL) suppository 650 mgJump to med 650 mg, Rectal, EVERY 6 HOURS PRN, Starting on 05/06/25 at 0314, Until Discontinued, Pain Mild (1-3) OR per patient request for pain score (4-10), Fever, For temp greater than 100.4 F (38 C), Administer if oral route cannot be used. Group 2: ondansetron (ZOFRAN-ODT) disintegrating tablet 4 mgJump to med 4 mg, Oral, EVERY 8 HOURS PRN, Starting on 05/06/25 at 0314, Until Discontinued, Nausea, Vomiting Or ondansetron (ZOFRAN) injection 4 mgJump to med 4 mg, IntraVENous, EVERY 6 HOURS PRN, Starting on 05/06/25 at 0314, Until Discontinued, Nausea,Vomiting, Administer if oral route cannot be used. FOR RECORDS PERTAINING TO PATIENTS WHO ARE [...] BE BASED ON THE PRIMARY CLINICAL RECORDS. [facility]. provides no warranty or guarantee of the accuracy or completeness of information in this document.
--- OUTSIDE RECORDS SUMMARY | 2025-06-03 10:41 | XMS_ITS | Patient Health Record ---
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 Role Phone Mynor BRAGG, Halina Primary Care Provider Unavailab Max Moran Unavailable [phone] Allergies Allergen (clinical drug ingredient) Drug/Non Drug Allergy documented on EMR Reaction Allergy Type Onset Date Status Substance with 5-hzelgtm-0-methylglutaryl-coenzyme A reductase inhibitor mechanism of action (substance) statins (uncoded) Unknown Abner rgy ActivediphenhydramineAntihistamineUnknownDrug AllergyActiveDecongestantUnknown Drug AllergyActivenitrofurantoinMacrodantindiarrheaDrug AllergyActivePenicillin G BenzathineUnknownDrug AllergyActive Reason For Referral No Information Medications Medication SIG (Take, Route, Frequency, Duration) Notes Start Date End Date Status Cranberry ActiveEstradiol 0.1 MG/GM1 gram Vaginal Once per week; Duration: 30 days Not-TakingMiscellaneoushuperzineActiveMethenamine Hippurate 1 GMTAKE 1 TABLET BY MOUTH EVERY DAY; Duration: 90Patient needs to schedule a follow upActiveFish Oil ActiveMultivitaminActiveGemfibrozilActiveOmeprazoleActiveGlucosamineActive PreserVision AREDS 2ActiveAmitriptyline HClNot-TakinghydroCHLOROthiazide Not-TakingrOPINIRole HClActiveEstradiol 0.1 MG/GMinsert 1 gram to the entrace of the vagina twice weekly; Duration: 30 daysActiveamLODIPine BesylateActive Levothyroxine SodiumActiveVitamin J7ZnqunaJemymlr 81Not-TakingLisinopril Not-TakingModerna COVID-19 Vaccine 100 MCG/0.5MLas directed Intramuscular2/16/21 Ltr-NrqqsmInpgycyNmf-PtuvqaSziptbmwsJiuvpdlfxpavgIOLLqsgrf Social History Tobacco Use: Social History Observation Description Date Details (start date - stop date) Never Smoker NA - NA Tobacco Use/Smoking Question Answer Notes Patient is a nonsmoker Alcohol Screen (Audit-C) Question Answer Notes Did you have a drink containing alcohol in the p ast year? No Jmfksx3OevsajpnmmuhqmBglqkrtd Problems Problem Type SNOMED Code ICD Code Onset Dates Problem Status W/U Status Risk Notes Problem Chronic cystitis (22408890) Othe r chronic cystitis without hematuria (N30.20) ActiveconfirmedProblemPostmenopausal atrophic vaginitis (37004543)Postmenopausal atrophic vaginitis (N95.2)ActiveconfirmedProblemSI - Stress incontinence (63778342)Stress incontinence of urine (N39.3)Activeconfirmed Encounters Encounter Location Date Provider Diagnosis [facility] [address] [address] [place] [address] 12/20/2024 Max Sahh Recurrent UTI N39.0 Assessments Encounter Date Diagnosis (ICD Code) Assessment Notes Treatment Notes Treatment Clinical Notes Section Notes 12/20/2024 Recurrent UTI (ICD-10 - N39.0) Plan Of Treatment No Information Insurance Providers Payer Name Payer Address Payer Phone Subscriber Number Group Number Insured Name Patient Relationship to Insured Coverage Start Date Coverage End Date [employer] AD[employer] PLAN [address] [place] [address] [id number] [id number] Ella Urena Self - patient is the insured Medical (General) History Medical History History ICD Code depression hyperlipidemiahypertensionOther chronic cystitis without ibcqyapovJ88.20 Postmenopausal atrophic mbkqpexqwG15.2Surgical History Surgery Date(Month/Year) basal cell removed cystoscopy- 08/31/15, 04/08/20- Dr. Julio Fitchcolonoscopymacular pucker surgery cataract surgerybone removed between toesc-section
== END 2025-06-03 10:36 | disposition home or self-care (01) ==
LOC: US 10:37
PROVIDERS: PCP Family Medicine; Visit Provider Family Medicine
DX: R10.11 Right upper quadrant pain (principal); N28.1 Cyst of kidney, acquired
CPT/HCPCS: 76705

== ENCOUNTER 2025-06-21 11:11 | Outpatient (OUT) | payer MEDICARE, SELFPAY ==
[2025-06-21 11:58] LABS: Protein Creatinine Ratio Urine 0.21; Total Protein Urine Random 29.0 mg/dL (<=11.9)
[2025-06-21 12:03] LABS: Albumin Level 3.5 g/dL (3.4-5.0); Anion Gap 11.7; Blood Urea Nitrogen 30.0 mg/dL (7.0-18.0); Calcium 9.2 mg/dL (8.5-10.1); Carbon Dioxide 28.2 mmol/L (21.0-32.0); Chloride 104 mmol/L (98-107); Estimated GFR (African America 40 (>=60 mL/min/1.73m^2); Estimated GFR (Non-African Ame 33 (>=60 mL/min/1.73m^2); Glucose 103 mg/dL (74-106); Magnesium 2.0 mg/dL (1.8-2.4); Potassium 3.9 mmol/L (3.5-5.1); Sodium 140 mmol/L (136-145); Uric Acid 6.6 mg/dL (2.6-6.0)
[2025-06-21 12:21] LABS: Hematocrit 39.8 % (36.0-48.0); Hemoglobin 13.2 g/dL (12.0-16.0); Mean Corpuscular HGB Conc 33.2 g/dL (29.9-35.2); Mean Corpuscular Hemoglobin 29.8 pg (26.7-34.0); Mean Corpuscular Volume 89.8 fL (81.0-99.0); Platelet Count 222 10^3/uL (150-450); Red Blood Count 4.43 10^6/uL (4.20-5.40); White Blood Count 4.8 10^3/uL (4.0-11.0)
[2025-06-21 12:34] LABS: Glucose Urine UA NEGATIVE (NEGATIVE)
[2025-06-21 15:05] LABS: Cast Seen? NONE SEEN #/LPF (NONE SEEN); Crystals Seen? None Seen #/HPF (None Seen)
== END 2025-06-21 11:12 | disposition home or self-care (01) ==
LOC: LAB 11:14
PROVIDERS: PCP Family Medicine; Visit Provider Internal Medicine
DX: E78.1 Pure hyperglyceridemia (principal); N28.1 Cyst of kidney, acquired; M10.9 Gout, unspecified; I12.9 Hypertensive chronic kidney disease with stage 1 through stage 4 chronic kidney disease, or unspecified chronic kidney disease; N18.4 Chronic kidney disease, stage 4 (severe)
CPT/HCPCS: 36415; 80069; 81001; 82306; 82570; 83735; 83970; 84156; 84550; 85027